=== PATIENT | male | born 1950 | race Caucasian/White ===

== ENCOUNTER → 2016-04-08 | Outpatient (CLI) | payer MEDICARE ==
[2016-04-08 12:24] VITALS: BP 130/60; PULSE 82; RESP 16; TEMP 98.1
--- NOTE | 2016-04-09 13:07 | P.PN ---
Subjective This is follow-up visit for this patient with a history of severe and chronic low back pain secondary to lumbar degenerative disc disease, lumbar facet arthropathy, and lumbar spinal stenosis, we have done interventional pain management injection, lumbar epidural steroid injections 3 and he reported that his pain improved more than 50%, and is currently on pain medications Neurontin 100 mg every 8 hours Patient denies any side effects of the medication, denies excessive drowsiness or sleepiness, denies suicidal ideation, and reports that the current pain medication is NOT helping To control the pain and improve activity of daily living Physical Examinations : 1-Constitutiona : Cooperative , not in acute distress . 2-HEENT : nech ; supple , no Lymphadenopathy , no Thyromegaly , normal thyroid size . eyes : no ptosis , no icterus, no photophobia . ENT : normal of hearing , normal oropharynx , no Thrush . 3- Respiratory : Chest clear to auscultations Bilaterally , no wheezing , no Rhonchi . 4- Cardiovascular : regular rate and rhythem , S1 , S2 , no S3 , no S4. 5- Gastrointestinal : abdomen soft no tenderness , bowel sounds positive all four quadrents , no organomegally . 6- Genitourinary : Defferred . 7- neurologic : Cranial nerve II to XII intact , no focal neurological deffecit . 8-psychatric : alert , oriented X 3 , appropriate affect , intact judgment and insight . 9-Lymphatic : no Lymphadenopathy . 10- musculoskeltal : exams of the Lumber spine = motor strength lower extremities ,thigh and legs .5/5 deep tendon reflexes : normal Knee Jerk , normal ankle Jerk . lumber facet Loading Test positive strait leg raising test positive at 30 degree , RT ,LT , Fabere test positive RT and positive LT . Range of motion: Range of motion in flexion of the lumbar spine 30 degrees Range of motion range of motion of extension of the lumbar spine 10 Assessment and plan = - Chronic low back pain secondary to lumbar degenerative disc disease , lumbar spondylosis with facet arthropathy without myelopathy , lumbar spinal stenosis. Patient had good results after the lumbar epidural steroid injections done recently - diagnoses, prognosis, and treatment options including but not limited to physical therapy, surgical interventions, interventional therapies and medication management including narcotics and adjuvant medication were discussed with the patient and all questions answered to the patient's satisfaction. -medication refile =1-increased the Neurontin dose to 100 mg 2 tablets 3 times a day ,and in the future we can increase it to 300 mg 3 times a day, will follow up with the pain clinic Objective - Vital Signs Vital signs: Vital Signs Temp 98.1 F 04/08/16 12:17 Pulse 82 04/08/16 12:17 Resp 16 04/08/16 12:17 BP 130/60 04/08/16 12:17 Pulse Ox Intake & Output 04/08/16 04/09/16 04/09/16 18:59 06:59 18:59 Weight 113.398 kg
== END | disposition home or self-care (01) ==
LOC: PNWHC3 11:49
PROVIDERS: ATTEND Specialist
DX: M51.36 Other intervertebral disc degeneration, lumbar region (principal); M47.816 Spondylosis without myelopathy or radiculopathy, lumbar region; M46.96 Unspecified inflammatory spondylopathy, lumbar region; M48.06 Spinal stenosis, lumbar region; Z79.899 Other long term (current) drug therapy
CPT/HCPCS: 99211

== ENCOUNTER → 2016-06-03 | Outpatient (CLI) | payer MEDICARE ==
[2016-06-03 12:06] VITALS: BP 115/54; PULSE 101; RESP 18
--- NOTE | 2016-06-03 12:21 | P.PN ---
Progress Note - Text Patient returns for followup for chronic back pain with radiation to legs. Patient underwent LESI x 3 with good relief of pain. Patient continues on Neurontin medications for pain (increased at last visit) with some relief, and is also on Plavix for anticoagulation secondary to extensive peripheral vascular disease. Patient denies adverse drug effects from medications. Today , pt denies new-onset weakness, bowel/bladder incontinence, or any other signs or symptoms of cauda equina syndrome. There are no signs of acute intoxication, and no indications of medication diversion or overuse. In addition to above, 13-point review of systems is also negative for chest pain , shortness of breath, changes in vision, changes in hearing, new onset weakness , abdominal pain, diarrhea, extreme fatigue, malaise, fever, skin changes, homicidal or suicidal ideation, or bowel or bladder incontinence. Vital Signs: Reviewed in EMR Gen: WDWN, AAOx3, NAD HEENT: NCAT, EOMI, hearing grossly normal Pulm: resp unlabored Abd: soft, NT, ND Neck: supple, trachea midline ROM in flexion lumbar spine: reduced ROM in extension lumbar spine: reduced Lumbar paravertebral tenderness: + Facet loading: + bilateral Straight leg raise: + RLE at 25 degrees Lower extremity: decreased strength secondary to pain Neuro: CN II-XII grossly intact, muscle strength lower extremities PRESERVED Imaging: Reviewed in EMR Assessment: 1. lumbar radiculitis 2. lumbar spondylosis with myelopathy 3. chronic pain syndrome Plan: 1. Explanation: Opioid and psychological risk scores were reviewed. Diagnoses , prognoses, and multiple treatment options including but not limited to physical therapy, interventional therapies, adjuvant medical therapies, narcotic medication therapies, and surgery were discussed with the patient and all questions were answered to the patient's satisfaction. 2. Opioid agreement: no opioids prescribed today 3. Counseling: The patient was counseled extensively on BODY MASS INDEX, EXERCISE. Specifically, the patient was instructed regarding the importance of weight control and exercise in the context of both chronic pain and overall health. 4. Procedures: LESI series 5. Consultations: None 6. Investigations: None 7. Medications: Neurontin increased to 300 mg TID 8. Disposition: f/u for procedure as scheduled, patient to be off Plavix for 7 days PQRS measures: 1-Patient's medications are documented in the chart. 2-Tobacco use is negative 3-Patient has not had a pneumococcal vaccine. 4-Advanced care planning discussed, patient unable to give. 5-Opioid contract NOT signed with the patient. 6-Pain positive, follow-up visit or procedure scheduled 7-Patient's blood pressure measured and documented, and patient will follow up with the primary care due to hypertension. 8-Patient's weight was measured, and body mass index ABOVE the normal limits, and counseling was done. Patient instructed to follow up with PCP. 9-Patient WAS NOT identified as an unhealthy alcohol user.
== END ==
LOC: PNWHC3 11:51
PROVIDERS: ATTEND Anesthesiology
DX: M47.26 Other spondylosis with radiculopathy, lumbar region (principal); G89.4 Chronic pain syndrome
CPT/HCPCS: 99211

== ENCOUNTER 2016-07-01 07:26 | Day surgery (SDC) | payer MEDICARE ==
[2016-06-27 16:02] VITALS: BMI 36.6
[2016-07-01 08:03] VITALS: RESP 16; TEMP 97.7
[2016-07-01] MEDS ORDERED: LACTATED RINGERS 1,000 ML IV ONE (08:33)
[2016-07-01] MEDS ORDERED: LIDOCAINE 1% 20 ML VIAL (10MG/ML) FOR IV START INTRADERMA ONE (08:34)
[2016-07-01] MEDS ORDERED: fentaNYL (PF) 50 MCG/ML 2 ML AMP ONE (08:40)
[2016-07-01] MEDS ORDERED: TRIAMCINOLONE ACETONIDE 40 MG/ML 1 ML VIAL ONE (08:40)
[2016-07-01] MEDS ORDERED: IOHEXOL 180 MG/ML 1 ML ML ONE (08:40)
[2016-07-01] MEDS ORDERED: MIDAZOLAM 2 MG/2 ML VIAL ONE (08:40)
--- NOTE | 2016-07-01 09:04 | P.PCN ---
Date of Procedure: 07/01/16 Surgeon: Neftaly Alba Pathology: none sent Condition: stable Disposition: PACU Description of Procedure: PREOPERATIVE DIAGNOSIS: 1-Lumbar radiculitis 2-Lumbar spinal stenosis POSTOPERATIVE DIAGNOSIS: 1-Lumbar radiculitis 2-Lumbar spinal stenosis PROCEDURE 1. Lumbar epidural steroid injection under fluoroscopic guidance at the L4-L5 level. 2. Lumbar epidurogram. ANESTHESIA: Local with 1% lidocaine; IV sedation with Versed/fentanyl. EBL: Minimal PROCEDURE INDICATION: The patient with low back pain and radiculitis symptoms unresponsive to conservative treatment. Fluoroscopy was used to optimize visualization of the needle placement and to maximize safety. Patient has had excellent relief from epidural steroid injections in the past that relieved pain in his RLE. Patient takes Plavix regularly for cardiac stents but has not taken it for eight (8) days. PROCEDURE DESCRIPTION / TECHNIQUE: The patient was seen and identified in the preoperative area. Risks, benefits, complications, and alternatives were discussed with the patient, including but not limited to bleeding, infection, nerve damage, allergic reactions to medications, and incomplete pain relief. The patient agreed to proceed with the procedure and signed the consent after all questions were answered. IV was started, and vital signs were stable. Patient was taken to the OR and time out was completed to confirm patient position, procedure, laterality of pain, and allergies. The patient was placed in the prone position on procedure table and a pillow was placed under the abdomen to reduce lumbar lordosis. The lumbosacral area was prepped and draped in the usual sterile fashion. Critical pause was taken. Vital signs were closely monitored during the procedure. Conscious sedation was used during the procedure to decrease patients anxiety. Using anterior-posterior fluoroscopy, the L4-L5 interlaminar space was identified and the skin over this site was marked and then infiltrated with 1% lidocaine subcutaneously in a left paramedian fashion. Subsequently, a 20-gauge 3.5-inch Tuohy epidural needle was inserted and advanced toward the epidural space using the Loss of resistance technique and guided by AP and lateral fluoroscopy. The correct needle position in the epidural space was verified with the injection of 2 mL of the water soluble contrast dye Omnipaque 300 contrast and observing an excellent epidurogram with the epidural spread of the dye, after negative aspiration for blood and CSF and in the absence of paresthesias. Again after negative aspiration, a 8 ml mixture containing 40 mg of Kenalog and 5 ml of preservative free Normal Saline, and 2 ml of preservative free lidocaine 1% solution was injected and a washout of epidurogram was seen. Needle was withdrawn intact, skin was cleansed, and bandages were applied. COMPLICATIONS: None COMMENTS: DISPOSITION / PLANS: The patient was placed in a supine position and transferred to the recovery area in a stable condition for observation. There was no evidence of lower extremity motor or sensory deficit after the procedure. Patient was discharged from the recovery room after meeting discharge criteria. Home discharge instructions were given to the patient by the staff. The patient was reexamined prior to discharge. The patient will schedule a repeat injection in 2-4 weeks.
[2016-07-01] MEDS ORDERED: IV FLUID CONTINUATION 1,000 ML IV ONE (09:08)
[2016-07-01 09:30] VITALS: BP 108/67; PULSE 65
--- NOTE | 2016-07-01 09:33 | FL ---
Fluoroscopy INDICATION: Pain FINDINGS: Fluoroscopy time: 31 seconds. Images obtained: 3. IMPRESSIONS: 1. Documentation of fluoroscopy.
[2016-07-01] MEDS ORDERED: LACTATED RINGERS 1,000 ML IV SCH (10:30)
== END 2016-07-01 09:57 | disposition home or self-care (01) ==
LOC: ORPAIN 07:26
PROVIDERS: ATTEND Anesthesiology
DX: G89.29 Other chronic pain (principal); M54.16 Radiculopathy, lumbar region; M48.06 Spinal stenosis, lumbar region; I73.9 Peripheral vascular disease, unspecified; Z79.01 Long term (current) use of anticoagulants; Z79.02 Long term (current) use of antithrombotics/antiplatelets
CPT/HCPCS: 62323; 99152; J2250; J3301; Q9965; J3010; 36415; 80051; 82565; 84520; 85027

== ENCOUNTER → 2016-07-01 | Outpatient (CLI) | payer MEDICARE ==
[2016-07-01 11:21] LABS: CH 34.3; HCT 36.1 % (39.0-53.0); HDW 2.82; HGB 12.2 gm/dL (13.0-17.5); MCH 34.3 pg (25.0-35.0); MCHC 33.9 g/dL (31.0-37.0); MCV 101.2 fL (80.0-100.0); Macrocytosis Slight; Mean Platelet Volume 7.2; RBC 3.56 m/uL (4.30-5.90); RDW 14.5 % (11.5-15.5)
[2016-07-01 11:31] LABS: Anion Gap 9 mmol/L; Blood Urea Nitrogen 17 mg/dL (9-20); Carbon Dioxide 31 mmol/L (22-30); Chloride 100 mmol/L (98-107); Non-African American GFR(MDRD) >60 (>60 ml/min/1.73 sqM); Potassium 4.5 mmol/L (3.5-5.1); Sodium 140 mmol/L (137-145)
== END | disposition home or self-care (01) ==
LOC: LABWHC1 07:12
PROVIDERS: ATTEND Internal Medicine Interventional Cardiology
DX: Z01.812 Encounter for preprocedural laboratory examination (principal); I73.9 Peripheral vascular disease, unspecified
CPT/HCPCS: 36415; 80051; 82565; 84520; 85027

== ENCOUNTER 2016-07-05 06:22 | Day surgery (SDC) | payer MEDICARE ==
[2016-07-03 14:59] VITALS: BMI 36.6
[2016-07-05] MEDS ORDERED: ASPIRIN 325 MG TAB PO STA (06:27)
[2016-07-05] MEDS ORDERED: SODIUM CHLORIDE 0.9% 1,000 ML in EMPTY BAG 1 BAG IV ONE (06:27)
[2016-07-05] MEDS ORDERED: ALPRAZolam 0.25 MG TAB PO PRN (06:27)
[2016-07-05 07:03] VITALS: PULSE 62; RESP 20; TEMP 98.1
[2016-07-05] MEDS ORDERED: MIDAZOLAM 2 MG/2 ML VIAL IV ONE (08:14)
[2016-07-05] MEDS ORDERED: LIDOCAINE 2% INJ 20 MG/ML SQ ONE (08:16)
[2016-07-05] MEDS: VERAPAMIL SYRINGE (5 MG/10 ML) INTRAARTER ONE ×2 (08:18→08:33)
[2016-07-05] MEDS ORDERED: IODIXANOL 320 MG/ML 100 ML INTRAARTER ONE (08:33)
[2016-07-05] MEDS ORDERED: SODIUM CHLORIDE 0.9% 1,000 ML IV SCH (09:00)
--- NOTE | 2016-07-05 12:35 | LTR ---
July 05, 2016 NAY PERALTA DO RE: Catracho Brady Nidhi Dear Edward: Mr. Catracho Brady underwent an abdominal aortogram and bilateral lower extremity runoff and that showed occluded bilateral femoral arteries. I will consider percutaneous peripheral intervention on him in the next couple of weeks. I want to thank you for allowing me to participate in his care and please do not hesitate to call if you have any questions or concerns. Sincerely, KYLAH ZARAGOZA MD
--- NOTE | 2016-07-05 12:47 | PTCA ---
DATE OF SERVICE: 07/05/2016 PERFORMING PHYSICIAN: Brant Sanchez M.D., Head Wrestling Coach. PROCEDURE PERFORMED: 1. An abdominal aortogram. 2. Bilateral lower extremity runoff. INDICATION: This is a pleasant 66-year-old gentleman who is known to have severe peripheral arterial disease with known occluded bilateral SFA, was experiencing severe bilateral lower extremity discomfort. The last angiogram was performed in 2014. APPROACH: Right radial artery. LEVEL OF SEDATION: Moderate. PROCEDURE DESCRIPTION: After obtaining an informed consent, the patient was brought to the Cardiac Illuminator. The right radial artery was cannulated using micropuncture technique, the micropuncture wire passed easily, then I placed a 5 [place] sheath in the right radial artery. Subsequently, I gave the patient 2 mg of verapamil IA and 5,000 unit of heparin IV. After that, I did an abdominal aortogram and bilateral lower extremity runoff using 5 [place] African pigtail catheter which was initially placed at the level of the renal arteries, then it was advanced into above the bifurcation of the aorta to right and left common iliac arteries. The procedure was completed without any complication. SELECTIVE PERIPHERAL ANGIOGRAM: 1. The abdominal aorta appeared to have mild disease only and seems to be calcified. 2. COMMON ILIAC ARTERIES: The right and left common iliac arteries appeared to be angiographically normal. 3. EXTERNAL ILIAC ARTERIES: The right and left external iliac arteries are angiographically normal. 4. INTERNAL ILIAC ARTERIES: The right and left internal iliac arteries appeared to be angiographically normal. 5. COMMON FEMORAL ARTERIES. The right and left bronchial arteries are angiographically normal. 6. PROFUNDA: The right and left profunda are patent. 7. SFA: The right and left SFA are occluded, a long segment extends from the ostium all the way to the popliteal. 8. POPLITEAL: The right and left popliteal are patent. 9. BELOW THE KNEE: There is 2-vessel runoff below the knee bilaterally with posterior tibia and peroneal. CONCLUSION: Severe femoropopliteal disease with occluded bilateral SFA. POSTPROCEDURE MANAGEMENT: The patient to be scheduled to undergo a BILINGUAL SPEECH THERAPIST of the right SFA and subsequently left SFA.
[2016-07-05 13:26] VITALS: BP 118/57
--- NOTE | 2016-07-05 15:30 | IR ---
Fluoroscopy HISTORY: Pain in left leg 3.8 minutes fluoroscopy time supplied to the referring clinician. 122 intraoperative C-arm images do cument the procedure. See dictated report from cardiology.
--- NOTE | 2016-07-11 10:08 | CDI ---
Dr. Sanchez Mr. Brady was seen on 07/05 for evaluation of PAD. Per the H&P, "...he continues to have bilateral lower extremeties discomfort seems to be consistent with intermittent claudication." According to the Official Guidelines for Coding and Reporting, in the outpatient setting diagnosis documented as consistent with fits the definition of a probable or suspected condition. Further clarification is required when a suspected condition is reported. Please clarify for proper reporting purposes. PAD with intermittent claudication PAD without intermittent claudication Unknown Other (please specify) Please document your findings in an addendum to the procedure note. If you have any questions about this query, you may contact Music Industry Intern, Alisson Loco at between 8am and 6pm Friday-Friday Thank you for your time. EDINSON Ramirez PAD with intermittent claudication [facility]
== END 2016-07-05 14:15 | disposition home or self-care (01) ==
LOC: CATHCVL 06:22
PROVIDERS: ATTEND Internal Medicine Interventional Cardiology
DX: I70.213 Atherosclerosis of native arteries of extremities with intermittent claudication, bilateral legs (principal); I25.2 Old myocardial infarction; Z95.2 Presence of prosthetic heart valve; I10 Essential (primary) hypertension; I48.91 Unspecified atrial fibrillation; E78.2 Mixed hyperlipidemia; I25.10 Atherosclerotic heart disease of native coronary artery without angina pectoris; Z95.5 Presence of coronary angioplasty implant and graft; Z79.02 Long term (current) use of antithrombotics/antiplatelets; Z79.82 Long term (current) use of aspirin; Z79.899 Other long term (current) drug therapy
CPT/HCPCS: 36200; 75625; 75716; C1769; C1894; J2001; J2250; Q9967; J1644

== ENCOUNTER 2016-07-31 09:30 | Day surgery (SDC) | payer MEDICARE ==
[~2016-07-31 09:30] MED LIST: ALPRAZolam 0.25 MG TAB PO PRN; ASPIRIN 325 MG TAB PO STA; SODIUM CHLORIDE 0.9% 1,000 ML in EMPTY BAG 1 BAG IV ONE
[2016-07-31] MEDS ORDERED: SODIUM CHLORIDE 0.9% 1,000 ML IV ONE (09:50)
[2016-07-31 10:09] VITALS: RESP 16
[2016-07-31] MEDS ORDERED: LIDOCAINE 2% INJ 20 MG/ML SQ ONE (11:30)
[2016-07-31] MEDS: MIDAZOLAM 2 MG/2 ML VIAL IVP ONE ×4 (11:33→13:22)
[2016-07-31] MEDS: fentaNYL (PF) 50 MCG/ML 2 ML AMP IV ONE ×6 (11:34→14:18)
[2016-07-31] MEDS ORDERED: HEPARIN SODIUM 1,000 UNIT/ML VIAL IV ONE (11:38)
[2016-07-31] MEDS ORDERED: MIDAZOLAM 2 MG/2 ML VIAL IVP ONE ×2 (12:47→14:35)
[2016-07-31] MEDS ORDERED: IODIXANOL 320 MG/ML 100 ML INTRAARTER ONE (14:55)
[2016-07-31] MEDS ORDERED: NITROGLYCERIN SL TABS 0.4 MG TAB SUBLINGUAL PRN (15:18)
[2016-07-31] MEDS ORDERED: SODIUM CHLORIDE 0.9% 1,000 ML IV SCH (15:30)
[2016-07-31 19:42] VITALS: BMI 38.0
--- NOTE | 2016-07-31 20:05 | PCN ---
DATE OF PROCEDURE: 07/31/2016 PERFORMING PHYSICIAN: Brant Sanchez M.D., lead web developer. PROCEDURE PERFORMED: Attempted balloon angioplasty of the right superficial femoral artery. INDICATION: This is a pleasant 66-year-old gentleman who is known to have severe peripheral arterial disease with occluded bilateral SFA. He was quite symptomatic bilaterally. He was brought today to undergo a STOREKEEPER STEWARD of the right SFA from left groin approach. APPROACH: Left common femoral artery. COMPLICATIONS: None. LEVEL OF SEDATION: Moderate with sedation length of 3 hours and 18 minutes. PROCEDURE DESCRIPTION: After obtaining informed consent, the patient was brought to the cardiac laborer cement gun placing. The left common femoral artery was cannulated using micropuncture technique. The micropuncture wire passed easily. Then I placed a 6 Mauritian sheath 11 cm in the left common femoral artery. After that I selected the right profunda using an 0.035 Advantage wire with 5 Mauritian RIM catheter. After that I exchanged my 11 cm 6 Mauritian sheath for a 70 cm 6 Mauritian sheath using an 0.35 Advantage wire. The tip of the sheath was positioned in the right common femoral artery. After that I attempted crossing the WHITEPRINTING MACHINE OPERATOR of the right superficial femoral artery using an 0.014 Astato wire, a ( ) Astato wire, 0.035 Glidewire and 0.035 Advantage wire, and I was unsuccessful. I attempted crossing the WHITEPRINTING MACHINE OPERATOR of the right SFA in antegrade technique only. We did not try to come from down and see if we are successful in crossing the right superficial femoral artery. After multiple attempts we decided to stop and possibly either send the patient to have a right femoropopliteal bypass or to undergo an attempt from down, where we can access the right posterior tibial artery and do it. The procedure was completed without any complication. POST-PROCEDURE MANAGEMENT: 1. Dual antiplatelet therapy. 2. Risk factor modifications. 3. Discuss with the patient the option between surgery and retrograde technique.
[2016-07-31] MEDS: METOPROLOL TARTRATE 25 MG TAB PO SCH (20:49)
[2016-07-31] MEDS: FUROSEMIDE 40 MG TAB PO SCH (20:49)
[2016-07-31] MEDS: GABAPENTIN 300 MG CAP PO SCH (20:49)
[2016-07-31] MEDS ORDERED: AMIODARONE 200 MG TAB PO STA (20:54)
[2016-07-31] MEDS ORDERED: ATORVASTATIN 80 MG TAB PO SCH (21:00)
[2016-08-01 07:41] LABS: Non-African American GFR(MDRD) >60 (>60 ml/min/1.73 sqM)
[2016-08-01 08:03] VITALS: BP 121/77; PULSE 78; TEMP 98
--- NOTE | 2016-08-01 08:11 | IR ---
EXAMINATION TYPE: IR seating captain femoral popliteal DATE OF EXAM: 07/31/2016 3:21 PM CLINICAL HISTORY: Right leg pain TECHNIQUE: Fluoroscopy. COMPARISON: None. FINDINGS: Fluoroscopic guidance was provided during right popliteal angiogram procedure performed by Dr. Sanchez. A total of 107.1 minutes of fluoroscopic time was utilized during the procedure and multi ple spot images was acquired. Please refer to procedure note for further details as I was not present nor performed procedure. IMPRESSION: As Above.
[2016-08-01] MEDS: GABAPENTIN 300 MG CAP PO SCH ×2 (08:45)
[2016-08-01] MEDS: METOPROLOL TARTRATE 25 MG TAB PO SCH (08:45)
[2016-08-01] MEDS: FUROSEMIDE 40 MG TAB PO SCH (08:46)
[2016-08-01] MEDS ORDERED: ASPIRIN 81 MG CHEW PO SCH (09:00)
[2016-08-01] MEDS ORDERED: CLOPIDOGREL 75 MG TAB PO SCH (09:00)
[2016-08-01] MEDS ORDERED: LISINOPRIL 10 MG TAB PO SCH (09:00)
[2016-08-01] MEDS ORDERED: CHOLECALCIFEROL 1,000 UNIT TAB PO SCH (09:00)
[2016-08-01] MEDS ORDERED: NON-FORMULARY DRUG (Omega-3 Fatty Acids/Fish Oil [Fish Oil 1,000 Mg Softgel] 1 CAP) PO SCH (09:00)
[2016-08-01] MEDS ORDERED: AMIODARONE 200 MG TAB PO SCH ×2 (09:00→21:00)
[2016-08-01] MEDS ORDERED: ISOSORBIDE MONONITRATE ER 15 MG TAB PO SCH (09:00)
--- NOTE | 2016-08-01 09:05 | DS ---
DATE OF ADMISSION: 07/31/2016 DATE OF DISCHARGE: 08/01/2016 BRIEF HISTORY: This is a pleasant 66-year-old gentleman who sees Dr. Patrick Kessler as well as Dr. Gregorio Rodas who was admitted to the hospital yesterday and underwent an attempted balloon angioplasty of the right superficial femoral artery for severe intermittent claudication. We did an antegrade approach only. The procedure was performed from the left groin. The patient is going to be discharged home on dual antiplatelet therapy and I will bring the patient back to undergo a GOLF CART MECHANIC of the right SFA from retrograde approach from right posterior tibial artery.
[2016-08-01] MEDS ORDERED: MULTIVITAMINS, THERA 1 EACH TAB PO SCH (12:00)
[2016-08-01] MEDS ORDERED: B COMPLEX-VIT C-VIT E-ZINC 1 EACH TAB PO SCH (12:00)
== END 2016-08-01 10:56 | disposition home or self-care (01) ==
LOC: CATHCVL 09:30 → 3OBS 14:57 → CATHCVL 08-01 10:56
PROVIDERS: ATTEND Internal Medicine Interventional Cardiology
DX: I70.211 Atherosclerosis of native arteries of extremities with intermittent claudication, right leg (principal); Z95.1 Presence of aortocoronary bypass graft; Z95.2 Presence of prosthetic heart valve; E78.2 Mixed hyperlipidemia; I10 Essential (primary) hypertension; I48.91 Unspecified atrial fibrillation; Z87.891 Personal history of nicotine dependence; Z79.02 Long term (current) use of antithrombotics/antiplatelets; Z79.82 Long term (current) use of aspirin; Z79.899 Other long term (current) drug therapy
CPT/HCPCS: 37224; 85347; 82565; 99152; 99153 ×6; C1894 ×2; C1769 ×8; C1887; J2001; J2250; Q9967; J3010; J1644

== ENCOUNTER → 2016-08-06 | Outpatient (CLI) | payer MEDICARE ==
[2016-08-06 14:54] VITALS: BP 145/84; PULSE 76; RESP 16; TEMP 97.8
--- NOTE | 2016-08-06 15:10 | P.PN ---
Progress Note - Text Patient returns for followup for chronic back pain with radiation to legs. Patient did have additional catheterization by Dr. Sanchez but stent placement for PAD was unsuccessful. He underwent LESI x 3 with good relief of pain previously , but underwent LESI in June with only 3-4 days' worth of relief and is requesting something that will help him for longer. Patient continues on Neurontin medications for pain (increased at last visit) with some relief, and is also on Plavix for anticoagulation secondary to extensive peripheral vascular disease. Patient denies adverse drug effects from medications. Today , pt denies new-onset weakness, bowel/bladder incontinence, or any other signs or symptoms of cauda equina syndrome. There are no signs of acute intoxication, and no indications of medication diversion or overuse. In addition to above, 13-point review of systems is also negative for chest pain , shortness of breath, changes in vision, changes in hearing, new onset weakness , abdominal pain, diarrhea, extreme fatigue, malaise, fever, skin changes, homicidal or suicidal ideation, or bowel or bladder incontinence. Vital Signs: Reviewed in EMR Gen: WDWN, AAOx3, NAD HEENT: NCAT, EOMI, hearing grossly normal Pulm: resp unlabored Abd: soft, NT, ND Neck: supple, trachea midline ROM in flexion lumbar spine: reduced ROM in extension lumbar spine: reduced Lumbar paravertebral tenderness: + Facet loading: + bilateral Straight leg raise: + RLE at 25 degrees Lower extremity: decreased strength secondary to pain Neuro: CN II-XII grossly intact, muscle strength lower extremities PRESERVED Imaging: Reviewed in EMR Assessment: 1. lumbar radiculitis 2. lumbar spondylosis with myelopathy 3. chronic pain syndrome Plan: 1. Explanation: Opioid and psychological risk scores were reviewed. Diagnoses , prognoses, and multiple treatment options including but not limited to physical therapy, interventional therapies, adjuvant medical therapies, narcotic medication therapies, and surgery were discussed with the patient and all questions were answered to the patient's satisfaction. 2. Opioid agreement: no opioids prescribed today 3. Counseling: The patient was counseled extensively on BODY MASS INDEX, EXERCISE. Specifically, the patient was instructed regarding the importance of weight control and exercise in the context of both chronic pain and overall health. 4. Procedures: lumbar MBB bilateral instead of LESI #2 5. Consultations: None 6. Investigations: None 7. Medications: Neurontin re-prescribed and increased 400 mg TID 8. Disposition: f/u for procedure as scheduled, patient to be off Plavix for 7 days per [facility] PQRS measures: 1-Patient's medications are documented in the chart. 2-Tobacco use is negative 3-Patient has not had a pneumococcal vaccine. 4-Advanced care planning discussed, patient unable to give. 5-Opioid contract NOT signed with the patient. 6-Pain positive, follow-up visit or procedure scheduled 7-Patient's blood pressure measured and documented, and patient will follow up with the primary care due to hypertension. 8-Patient's weight was measured, and body mass index ABOVE the normal limits, and counseling was done. Patient instructed to follow up with PCP. 9-Patient WAS NOT identified as an unhealthy alcohol user.
== END | disposition home or self-care (01) ==
LOC: PNWHC3 14:14
PROVIDERS: ATTEND Anesthesiology
DX: M47.16 Other spondylosis with myelopathy, lumbar region (principal); M54.16 Radiculopathy, lumbar region; G89.4 Chronic pain syndrome
CPT/HCPCS: 99211

== ENCOUNTER → 2016-08-26 | Outpatient (CLI) | payer MEDICARE ==
[2016-08-26 12:31] VITALS: BP 122/74; PULSE 61; RESP 16; TEMP 97.2
--- NOTE | 2016-08-26 13:24 | P.PN ---
Subjective This is follow-up visit for this patient with a history of severe and chronic low back pain secondary to lumbar degenerative disc diseases , lumbar spondylosis with facet arthropathy , we have done interventional pain management injection, lumbar epidural steroid injections, and this provided minimal short-term benefit and he continued to have severe low bacm pain, 1-Neurontin 300 mg every 6 hours Patient denies any side effects of the medication, denies excessive drowsiness or sleepiness, denies suicidal ideation, and reports that the current pain medication is NOT helping To control the pain and improve activity of daily living Patient denies any motor or sensory deficit , patient denies any fever or night sweats, denies any change in the bowel movements or urination Physical Examinations : 1-Constitutiona : Cooperative , not in acute distress . 2-HEENT : nech ; supple , no Lymphadenopathy , no Thyromegaly , normal thyroid size . eyes : no ptosis , no icterus, no photophobia . ENT : normal of hearing , normal oropharynx , no Thrush . 3- Respiratory : Chest clear to auscultations Bilaterally , no wheezing , no Rhonchi . 4- Cardiovascular : regular rate and rhythem , S1 , S2 , no S3 , no S4. 5- Gastrointestinal : abdomen soft no tenderness , bowel sounds positive all four quadrents , no organomegally . 6- Genitourinary : Defferred . 7- neurologic : Cranial nerve II to XII intact , no focal neurological deffecit . 8-psychatric : alert , oriented X 3 , appropriate affect , intact judgment and insight . 9-Lymphatic : no Lymphadenopathy . 10- musculoskeltal : exams of the Lumber spine = motor strength lower extremities ,thigh and legs .5/5 deep tendon reflexes : normal Knee Jerk , normal ankle Jerk . lumber facet Loading Test positive bilaterally strait leg raising test positive at 30 degree , RT ,LT , Fabere test positive RT and positive LT . Range of motion: Range of motion in flexion of the lumbar spine 30 degrees Range of motion range of motion of extension of the lumbar spine 10 Assessment and plan = Chronic low back pain secondary to lumbar degenerative disc disease , lumbar spondylosis with facet arthropathy without myelopathy , he continue to have , severe low back pain after lumbar epidural steroid injections , - diagnoses, prognosis, and treatment options including but not limited to physical therapy, surgical interventions, interventional therapies , and medication management including narcotics and adjuvant medication were discussed with the patient and all the questions answered, he should continue his current medication Neurontin 300 mg every 6 hours , and patient will be scheduled to have diagnostic medial branch block lumbar area L2-3/L3 4/L4 5/L5-S1 if he gets more than 50% improvement after 2 diagnostic medial branch block and it would be good candidate to have radiofrequency ablation of the median branch Objective - Vital Signs Vital signs: Vital Signs Temp 97.2 F L 08/26/16 12:24 Pulse 61 08/26/16 12:24 Resp 16 08/26/16 12:24 BP 122/74 08/26/16 12:24 Pulse Ox 95 08/26/16 12:24 Intake & Output 08/25/16 08/26/16 08/26/16 18:59 06:59 18:59 Weight 124.738 kg
== END ==
LOC: PNWHC3 11:32
PROVIDERS: ATTEND Specialist
DX: M51.36 Other intervertebral disc degeneration, lumbar region (principal); M47.816 Spondylosis without myelopathy or radiculopathy, lumbar region; M46.86 Other specified inflammatory spondylopathies, lumbar region; G89.29 Other chronic pain; Z79.891 Long term (current) use of opiate analgesic
CPT/HCPCS: 99211

== ENCOUNTER 2016-09-18 07:08 | Day surgery (SDC) | payer MEDICARE ==
[2016-09-11 17:31] VITALS: BMI 37.3
[2016-09-18 07:29] VITALS: RESP 16; TEMP 97.8
[2016-09-18] MEDS ORDERED: LACTATED RINGERS 1,000 ML IV ONE (07:30)
[2016-09-18] MEDS ORDERED: LIDOCAINE 1% 20 ML VIAL (10MG/ML) FOR IV START INTRADERMA ONE (08:12)
[2016-09-18] MEDS ORDERED: BUPIVACAINE (PF) 0.5% 30 ML VIAL ONE (08:12)
[2016-09-18] MEDS ORDERED: MIDAZOLAM 2 MG/2 ML VIAL ONE (08:12)
[2016-09-18] MEDS ORDERED: TRIAMCINOLONE ACETONIDE 40 MG/ML 1 ML VIAL ONE (08:12)
[2016-09-18] MEDS ORDERED: LACTATED RINGERS 1,000 ML IV SCH (08:15)
--- NOTE | 2016-09-18 08:50 | FL ---
Fluoroscopy History: BACK PAIN 28 seconds of fluoroscopic time and 1 films are submited for pain management.
[2016-09-18] MEDS ORDERED: IV FLUID CONTINUATION 700 ML IV ONE (08:51)
--- NOTE | 2016-09-18 08:58 | P.PCN ---
Date of Procedure: 09/18/16 Preoperative Diagnosis: Postoperative Diagnosis: Procedure(s) Performed: Implants: Surgeon: Neftaly Alba Pathology: none sent Condition: stable Disposition: PACU Indications for Procedure: Operative Findings: Description of Procedure: PREOPERATIVE DIAGNOSIS: L3-L4, L4-L5, and L5-S1 spondylosis without myelopathy and facet arthropathy. POSTOPERATIVE DIAGNOSIS: L3-L4, L4-L5, and L5-S1 spondylosis without myelopathy and facet arthropathy. PROCEDURE DESCRIPTION: Patient presents for bilateral L3, L4 and L5 diagnostic medial branch blocks under fluoroscopic guidance. The procedure is performed using fluoroscopic guidance during needle placement to assure proper position and maximize safety. ANESTHESIA: Local with 1% lidocaine; conscious sedation EBL: Minimal PROCEDURE INDICATION: Patient with lumbar facet arthropathy signs and symptoms, here for diagnostic medial branch block, #1 at this visit. Pt has been off Plavix for six days. PROCEDURE DESCRIPTION: The patient was seen and identified in the preoperative area. Risks, benefits, complications, and alternatives were discussed with the patient (including but not limited to incomplete pain relief, bleeding, infection, nerve damage, and allergies to medications), the patient agreed to proceed with the procedure and signed the consent after all questions were answered. Patient was taken to the OR and time out was completed to verify proper patient, position, laterality of pain, and allergies. Pt was placed in the prone position and a pillow was placed under the abdomen to reduce lumbar lordosis. The lumbosacral area was prepped and draped in the usual sterile fashion. Using oblique fluoroscopy, the eye of the "Ric dog" of right L4 vertebral body, which corresponds to the path of the medial branch originating from the level above, which is L3 in this case, was identified. Subsequently, a 22-gauge 3.5-inch spinal needle was inserted under fluoroscopic guidance toward the eye of the "Ric dog" of the right L4 vertebral body, corresponding to the junction of the superior articular process and the transverse process of the pedicle of the same level. After needle tip confirmation on lateral view and after negative aspiration for CSF and blood and without paresthesias, 1 mL of a 6 ml solution of 0.5% preservative-free bupivacaine and 40 mg Kenalog was injected. Subsequently the needle was withdrawn intact and the same procedure was repeated for the right L4, right L5, left L3, left L4, and left L5 medial branches which together with right L3 medial branch correspond to the sensory innervation of the bilateral L3-L4, L4-L5, and L5-S1 facet joints. Needle was withdrawn intact after each injection. At the end of the procedure, the skin was cleansed and bandages were applied. COMPLICATIONS: None. DISPOSITION/PLAN: The patient taken to the recovery area after the procedure in a stable condition for observation. Patient was reexamined prior to discharge and there were no issues. Patient was discharged home, accompanied by an adult, after meeting discharged criteria. Discharge instructions were give to the patient by the staff. Patient was specifically instructed not to drive today and to rest for the rest of the day. Patient will follow up in 2-3 weeks for further evaluation.
[2016-09-18 09:24] VITALS: BP 106/66; PULSE 60
== END 2016-09-18 09:51 | disposition home or self-care (01) ==
LOC: ORPAIN 07:08
PROVIDERS: ATTEND Anesthesiology
DX: G89.29 Other chronic pain (principal); M47.816 Spondylosis without myelopathy or radiculopathy, lumbar region; M47.817 Spondylosis without myelopathy or radiculopathy, lumbosacral region; M46.96 Unspecified inflammatory spondylopathy, lumbar region; M46.97 Unspecified inflammatory spondylopathy, lumbosacral region
CPT/HCPCS: 64493; 64494; 64495; 99152; J2250; J3301

== ENCOUNTER → 2016-10-08 | Outpatient (CLI) | payer MEDICARE ==
[2016-10-08 12:16] VITALS: BP 114/68; PULSE 88; RESP 18; TEMP 98
--- NOTE | 2016-10-08 12:36 | P.PN ---
Progress Note - Text Patient returns for followup for chronic back pain with radiation to legs. Patient underwent bilateral lumbar MBB with 70% relief of back pain for eight hours (no fentanyl administered during procedure). Patient continues on Neurontin medications for pain with some relief, and is also on Plavix for anticoagulation secondary to extensive peripheral vascular disease; he was started on Eliquis last week. Patient denies adverse drug effects from medications. Today, pt denies new-onset weakness, bowel/bladder incontinence, or any other signs or symptoms of cauda equina syndrome. There are no signs of acute intoxication, and no indications of medication diversion or overuse. In addition to above, 13-point review of systems is also negative for chest pain , shortness of breath, changes in vision, changes in hearing, new onset weakness , abdominal pain, diarrhea, extreme fatigue, malaise, fever, skin changes, homicidal or suicidal ideation, or bowel or bladder incontinence. Vital Signs: Reviewed in EMR Gen: WDWN, AAOx3, NAD HEENT: NCAT, EOMI, hearing grossly normal Pulm: resp unlabored Abd: soft, NT, ND Neck: supple, trachea midline ROM in flexion lumbar spine: reduced ROM in extension lumbar spine: reduced Lumbar paravertebral tenderness: + Facet loading: + bilateral Straight leg raise: neg Lower extremity: decreased strength secondary to pain Neuro: CN II-XII grossly intact, muscle strength lower extremities PRESERVED Imaging: Reviewed in EMR Assessment: 1. lumbar radiculitis 2. lumbar spondylosis with myelopathy 3. chronic pain syndrome Plan: 1. Explanation: Opioid and psychological risk scores were reviewed. Diagnoses , prognoses, and multiple treatment options including but not limited to physical therapy, interventional therapies, adjuvant medical therapies, narcotic medication therapies, and surgery were discussed with the patient and all questions were answered to the patient's satisfaction. 2. Opioid agreement: no opioids prescribed today 3. Counseling: The patient was counseled extensively on BODY MASS INDEX, EXERCISE. Specifically, the patient was instructed regarding the importance of weight control and exercise in the context of both chronic pain and overall health. 4. Procedures: lumbar MBB bilateral #2 in six weeks if he can get permission to be off Plavix for five days and Eliquis for three days 5. Consultations: None 6. Investigations: None 7. Medications: Neurontin re-prescribed 400 mg TID with three refills 8. Disposition: f/u for procedure as scheduled, patient to be off Plavix/ Eliquis. Patient is also going to have a major vascular bypass surgery in next 2-3 months. PQRS measures: 1-Patient's medications are documented in the chart. 2-Tobacco use is negative 3-Patient has not had a pneumococcal vaccine. 4-Advanced care planning discussed, patient unable to give. 5-Opioid contract NOT signed with the patient. 6-Pain positive, follow-up visit or procedure scheduled 7-Patient's blood pressure measured and documented, and patient will follow up with the primary care due to hypertension. 8-Patient's weight was measured, and body mass index ABOVE the normal limits, and counseling was done. Patient instructed to follow up with PCP. 9-Patient WAS NOT identified as an unhealthy alcohol user.
== END | disposition home or self-care (01) ==
LOC: PNWHC3 11:42
PROVIDERS: ATTEND Anesthesiology
DX: M47.16 Other spondylosis with myelopathy, lumbar region (principal); M47.26 Other spondylosis with radiculopathy, lumbar region; G89.4 Chronic pain syndrome; Z79.899 Other long term (current) drug therapy; Z79.02 Long term (current) use of antithrombotics/antiplatelets
CPT/HCPCS: 99211

== ENCOUNTER → 2017-04-17 | Outpatient (CLI) | payer MEDICARE ==
[2017-04-17 12:21] VITALS: BP 118/57; PULSE 67; RESP 18
--- NOTE | 2017-04-17 12:49 | P.PN ---
Progress Note - Text Progress Note Date: 04/17/17 This is a 67-year-old male with history of significant peripheral vascular disease and lower back pain. The patient had multiple vascular procedures of the lower extremities he also had his aortic valve replaced in 2012. Right now he is on 2 anticoagulants; Plavix and Elequis. He had more than 70% of pain relief after the last medial branch block on the lumbar spine which was done in August 2016. At that time we were not able to do the second medial branch block because of the patient's problem with his peripheral vascular disease. The patient still takes Neurontin 300 mg 3 times a day. Patient denies adverse drug effects from medications. Today, pt denies new-onset weakness, bowel/ bladder incontinence, or any other signs or symptoms of cauda equina syndrome. There are no signs of acute intoxication, and no indications of medication diversion or overuse. In addition to above, 13-point review of systems is also negative for chest pain , shortness of breath, changes in vision, changes in hearing, new onset weakness , abdominal pain, diarrhea, extreme fatigue, malaise, fever, skin changes, homicidal or suicidal ideation, or bowel or bladder incontinence. Vital Signs: Reviewed in EMR Gen: WDWN, AAOx3, NAD HEENT: NCAT, EOMI, hearing grossly normal Pulm: resp unlabored Abd: soft, NT, ND Neck: supple, trachea midline ROM in flexion lumbar spine: reduced ROM in extension lumbar spine: reduced Lumbar paravertebral tenderness: + Facet loading: + bilateral The patient has significant edema in his feet. Lower extremity: Mild weakness secondary to pain Neuro: CN II-XII grossly intact, muscle strength lower extremities PRESERVED Imaging: Reviewed in EMR Assessment: 1. Peripheral vascular disease 2. lumbar spondylosis with myelopathy 3. chronic pain syndrome Plan: 1. Explanation: Opioid and psychological risk scores were reviewed. Diagnoses , prognoses, and multiple treatment options including but not limited to physical therapy, interventional therapies, adjuvant medical therapies, narcotic medication therapies, and surgery were discussed with the patient and all questions were answered to the patient's satisfaction. 2. Opioid agreement: no opioids prescribed today 3. Counseling: The patient was counseled extensively on BODY MASS INDEX, EXERCISE. Specifically, the patient was instructed regarding the importance of weight control and exercise in the context of both chronic pain and overall health. 4. Procedures: lumbar MBB bilateral #2 5. Consultations: None 6. Investigations: None 7. Medications: increased to 400 mg TID 8. Disposition: f/u for procedure as scheduled, patient to be off Plavix, and Elequis for 3 days per [facility] PQRS measures: 1-Patient's medications are documented in the chart. 2-Tobacco use is negative 3-Patient has not had a pneumococcal vaccine. 4-Advanced care planning discussed, patient unable to give. 5-Opioid contract NOT signed with the patient. 6-Pain positive, follow-up visit or procedure scheduled 7-Patient's blood pressure measured and documented, and patient will follow up with the primary care due to hypertension. 8-Patient's weight was measured, and body mass index ABOVE the normal limits, and counseling was done. Patient instructed to follow up with PCP. 9-Patient WAS NOT identified as an unhealthy alcohol user.
== END | disposition home or self-care (01) ==
LOC: PNWHC3 11:31
PROVIDERS: ATTEND Anesthesiology
DX: G89.4 Chronic pain syndrome (principal); M54.5 Low back pain; I73.9 Peripheral vascular disease, unspecified; M47.816 Spondylosis without myelopathy or radiculopathy, lumbar region; Z95.2 Presence of prosthetic heart valve; Z79.01 Long term (current) use of anticoagulants; Z79.02 Long term (current) use of antithrombotics/antiplatelets; Z79.899 Other long term (current) drug therapy
CPT/HCPCS: 99211

== ENCOUNTER 2017-04-29 17:09 | Inpatient (IN) | payer MEDICARE ==
[2017-04-29] MEDS ORDERED: NITROGLYCERIN SL TABS 0.4 MG TAB SUBLINGUAL STA (17:44)
[2017-04-29] MEDS ORDERED: ASPIRIN 81 MG PO STA (17:45)
--- NOTE | 2017-04-29 17:45 | ED ---
Chest Pain HPI - General Source: patient, EMS, RN notes reviewed Mode of arrival: EMS Limitations: no limitations <Fatmata March - Last Filed: 04/29/17 19:43> <David Rivera - Last Filed: 04/29/17 19:50> - General Chief Complaint: Chest Pain Stated Complaint: Chest Pain Time Seen by Provider: 04/29/17 17:11 - History of Present Illness Initial Comments: This is a 67-year-old male who presented to the emergency department with chief complaint of chest pain. Patient states that he has had chest pain for the last couple of weeks and that this afternoon it became worse. He states that at approximately 1 PM this afternoon he was visiting a friend when he had an increase in his chest pain. He states that his friend told him he appeared pale and sweaty. Patient describes the pain as a pressure, as if someone was sitting on his chest. The chest pain was located across the entire chest. Patient took one nitro at approximately 5 PM before calling EMS. Patient also had associated shortness of breath. Denied nausea or vomiting, dizziness or headache. Patient states that he normally drinks 6-10 beers per day and has had 2 drinks already today. He states he is a former smoker, he quit 3 years ago. Patient has a history of NH in 2013 with subsequent CABG. Patient reports a history of CHF. He has a stent in his right leg. He states that he takes Lasix daily. Over the past few months the swelling in his bilateral lower legs has gotten worse. He states that he has pain with walking that feels like a pressure building up to his chest. He followed up with his vascular surgeon 2 weeks ago who told him to follow-up with his life enrichment director, Dr. Patterson, to receive a better water pill. Patient states that his life enrichment director told him to follow up with primary care provider, which he has yet to do. Patient states that he has been taking Pepto-Bismol daily due to the chest pain. He thought that it was acid reflux causing the symptoms. He states he has noticed that his stool has been darker in color, but attributed this to taking Pepto-Bismol. (Fatmata March) - Related Data Home Medications Medication Instructions Recorded Confirmed Atorvastatin [Lipitor] 80 mg PO HS 10/06/14 04/29/17 Cholecalciferol [Vitamin D3] 2,000 unit PO DAILY 10/06/14 04/29/17 Metoprolol Tartrate [Lopressor] 25 mg PO BID 10/06/14 04/29/17 Multivit-Min/FA/Lycopene/Lut 1 tab PO DAILY 10/06/14 04/29/17 [Centrum Silver Tablet] [place]-3 Fatty Acids/Fish Oil [Fish 1 cap PO DAILY 10/06/14 04/29/17 Oil 1,000 mg Softgel] Clopidogrel [Plavix] 75 tab PO DAILY 11/14/15 04/29/17 Furosemide [Lasix] 40 mg PO BID 11/14/15 04/29/17 Potassium Chloride [Klor-Con 20 meq PO DAILY 11/14/15 04/29/17 Packets] Amiodarone HCl [Pacerone] 200 mg PO DAILY 06/27/16 04/29/17 Apixaban [Eliquis] 5 mg PO BID 10/08/16 04/29/17 Ferrous Sulfate [Feosol] 1 tab PO DAILY 04/17/17 04/29/17 Hydrocodone/Acetaminophen 325 mg PO Q6HR PRN 04/17/17 04/29/17 [Hydrocodon-Acetaminophen 5-325] Isosorbide Dinitrate 15 mg PO DAILY 04/29/17 04/29/17 Isosorbide Mononitrate ER [Imdur] 15 mg PO DAILY 04/29/17 04/29/17 Previous Rx's Medication Instructions Recorded Nitroglycerin Sl Tabs [Nitrostat] 0.4 mg SUBLINGUAL Q5M PRN #25 tab 05/14/15 Gabapentin [Neurontin] 400 mg PO TID #90 cap 10/08/16 Allergies Allergy/AdvReac Type Severity Reaction Status Date / Time No Known Allergies Allergy Verified 04/29/17 18:21 Review of Systems ROS Other: All systems not noted in ROS Statement are negative. <Fatmata March - Last Filed: 04/29/17 19:43> ROS Other: All systems not noted in ROS Statement are negative. <David Rivera - Last Filed: 04/29/17 19:50> ROS Statement: Those systems with pertinent positive or pertinent negative responses have been documented in the HPI. EKG Findings - EKG Comments: EKG Findings:: EKG at 17:31:36. Atrial fibrillation with a competing junctional pacemaker. Septal infarct, age undetermined. Ventricular rate 68 bpm. QRS duration 96. QT/QTc 436/463. <Fatmata March - Last Filed: 04/29/17 19:43> Past Medical History Past Medical History: Cancer, Hyperlipidemia, Hypertension, Myocardial Infarction (NH), Osteoarthritis (OA), Vascular Disorder Additional Past Medical History / Comment(s): PVD, BACK PAIN, SWELLING IN ANKLES AND FEET. , STATES SKIN CANCER WITH RECENT TREATMENT. Last Myocardial Infarction Date:: 01-20-13 History of Any Multi-Drug Resistant Organisms: None Reported Past Surgical History: Heart Catheterization, Heart Catheterization With Stent Additional Past Surgical History / Comment(s): aortic valve replacement 2012, aortogram, pt states 2 failed stent replacement-1 to each leg, PAIN CLINIC PROCEDURES, ABD. [id number] plastiogram into, Past Anesthesia/Blood Transfusion Reactions: No Reported Reaction Date of Last Stent Placement:: 05/30/15 Past Psychological History: No Psychological Hx Reported Smoking Status: Former smoker Past Alcohol Use History: Daily Past Drug Use History: None Reported - Past Family History Mother Family Medical History: Deep Vein Thrombosis (DVT) <AncaFatmata M - Last Filed: 04/29/17 19:43> General Exam Limitations: no limitations <Aguilar Marchyesica Huynh - Last Filed: 04/29/17 19:43> <David Rivera - Last Filed: 04/29/17 19:50> - General Exam Comments Initial Comments: General: Awake and alert, well-developed; in no apparent distress. HEENT: Head atraumatic, normocephalic. Pupils are equal, round and reactive to light. Extraocular movements intact. Oropharynx moist without erythema or exudate. Neck: Supple. Normal ROM. Cardiovascular: Irregularly irregular rhythm. Normal rate. No murmurs, rubs or gallops. Chest symmetrical. Respiratory: Mild shortness of breath, O2 sat 98% RA. No use of accessory muscles. Lungs clear to auscultation bilaterally. No wheezes, rales or rhonchi. Abdomen: Soft, non-tender, non-distended. No rigidity, rebound or guarding. Normal bowel sounds in all 4 quadrants. Musculoskeletal: Normal ROM. 3+ pitting edema bilateral lower extremities. Skin: [place], warm and dry without rashes or lesions. Neurological: Alert and oriented x3. CN II-XII grossly intact. Speech is fluent and answers are appropriate. No focal neuro deficits. Psychiatric: Normal mood and affect. No overt signs of depression or anxiety noted. (Fatmata March) Course <AncaFatmata Huynh - Last Filed: 04/29/17 19:43> <MiguelDavid - Last Filed: 04/29/17 19:50> Vital Signs 04/29/17 17:18 Temperature 98.1 F Pulse Rate 71 Respiratory 22 Rate Blood Pressure 141/64 O2 Sat by Pulse 98 Oximetry - Reevaluation(s) Reevaluation #1: 04/29/17 19:49 PA supervision: I did personally do a [id number] evaluation of this patient did discuss the findings with him and his family members or present. Patient does have evidence of elevated troponin as well as anemia secondary to an upper GI bleed. He's been having dark-colored stools that he attributed to his Pepto- Bismol but they are heme positive. The patient will be admitted with cardiology and GI consultation L Yves will be held placed on proton pump inhibitors he will receive a transfusion. I did discuss this with Dr. Partida. I do agree with the assessment and plan at this time. (David Rivera) Chest Pain MDM <EdmoreFatmata - Last Filed: 04/29/17 19:43> <David Rivera - Last Filed: 04/29/17 19:50> - [facility] This is a 67-year-old male who presented to the emergency department for evaluation of chest pain. Patient given nitro and aspirin while in the emergency department. Patient states there was much improvement with his symptoms. EKG revealed atrial fibrillation. When compared to previous EKG from April 2015, there does appear to be changes in leads V4 and V5. CK-MB was 5.5 and troponin 0.104. Chest x-ray revealed pulmonary fibrotic changes with small right pleural effusion that is increased compared to old exam. Patient's vital signs are stable and he is in no acute distress. Labs revealed a hemoglobin of 7.1 and a positive stool occult blood. He will be transfused 1 unit of packed RBCs. Patient will be admitted to Dr. Partida, with diagnoses of unstable angina, elevated troponin and GI bleed. Consult GI and cardiology. Patient was made aware of findings and plan. He is in agreement with admission and voices understanding. All questions were answered. Chest x-ray findings: There is no heart failure nor confluent pneumonic infiltrate. There is slight blunting of right costophrenic angle. There is mild questionable interstitial pulmonary markings. Impression: Pulmonary fibrotic changes. Small right pleural effusion is increased compared to old exam. No gross heart failure. (Fatmata March) Disposition Time of Disposition: 19:31 <Fatmata March - Last Filed: 04/29/17 19:43> <David Rivera - Last Filed: 04/29/17 19:50> Clinical Impression: Unstable angina, Elevated troponin, GI bleed Disposition: ADMITTED IP TO THIS [facility] Condition: Stable Referrals: Patrick Kessler DO [Primary Care Provider] - 1-2 days
[2017-04-29 17:59] LABS: INR 1.2 (<1.2); Partial Thromboplastin Time 24.5 sec (22.0-30.0); Prothrombin Time 11.4 sec (9.0-12.0)
[2017-04-29 18:00] LABS: ALT 27 U/L (21-72); AST 34 U/L (17-59); Albumin 4.2 g/dL (3.5-5.0); Alkaline Phosphatase 68 U/L (38-126); Anion Gap 16 mmol/L; Blood Urea Nitrogen 26 mg/dL (9-20); Calcium 9.9 mg/dL (8.4-10.2); Carbon Dioxide 24 mmol/L (22-30); Chloride 93 mmol/L (98-107); Glucose 96 mg/dL (74-99); Magnesium 1.4 mg/dL (1.6-2.3); Potassium 3.6 mmol/L (3.5-5.1); Sodium 133 mmol/L (137-145); Total Bilirubin 0.4 mg/dL (0.2-1.3); Total Protein 7.2 g/dL (6.3-8.2)
[2017-04-29 18:02] LABS: Anisocytosis Slight; HCT 22.6 % (39.0-53.0); HGB 7.1 gm/dL (13.0-17.5); Hypochromasia Slight; MCH 28.8 pg (25.0-35.0); MCHC 31.3 g/dL (31.0-37.0); MCV 91.9 fL (80.0-100.0); Mean Platelet Volume 7.9; Platelet Count 238 k/uL (150-450); Poikilocytosis Slight; RBC 2.46 m/uL (4.30-5.90); RDW 16.2 % (11.5-15.5); WBC 9.4 k/uL (3.8-10.6)
[2017-04-29 18:31] LABS: Creatine Kinase MB 5.5 ng/mL (0.0-2.4); Troponin I 0.104 ng/mL (0.000-0.034)
[2017-04-29 19:09] LABS: Band Neutrophils % 1 %; Eosinophils # (M) 0.09 k/uL (0-0.7); Lymphocytes # (M) 1.32 k/uL (1.0-4.8); Monocytes # (M) 0.66 k/uL (0-1.0); Neutrophils % (M) 77 %; Nucleated Red Blood Cells 0 /100 WBC (0-0); Polychromasia Present; Total Cells Counted 100
--- NOTE | 2017-04-29 19:16 | XR ---
EXAMINATION TYPE: XR chest 2V DATE OF EXAM: 04/29/2017 COMPARISON: 10/12/2015 HISTORY: Chest pain TECHNIQUE: Frontal and lateral views of the chest are obtained. FINDINGS: There is no heart failure nor confluent pneumonic infiltrate. There is slight blunting of right costophrenic angle. There is mild coarsening of interstitial pulmonary markings. IMPRESSION: Pulmonary fibrotic changes. Small right pleural effusion is increased compared to old ex am. No gross heart failure.
[2017-04-29] MEDS ORDERED: NITROGLYCERIN SL TABS 0.4 MG TAB SUBLINGUAL PRN (19:35)
[2017-04-29] MEDS ORDERED: FUROSEMIDE 40 MG TAB PO SCH (22:00)
[2017-04-29] MEDS: ATORVASTATIN 80 MG TAB PO SCH (22:16)
[2017-04-30] MEDS: PANTOPRAZOLE 40 MG/10 ML VIAL IVP SCH ×3 (00:04→20:44)
[2017-04-30] MEDS: NITROGLYCERIN OINT 1 INCH/GM PACKET TOPICAL SCH ×4 (00:04→17:16)
[2017-04-30] MEDS: METOPROLOL TARTRATE 25 MG TAB PO SCH ×3 (00:04→20:44)
[2017-04-30 03:17] LABS: Creatine Kinase MB 3.9 ng/mL (0.0-2.4); Troponin I 0.12 ng/mL (0.000-0.034)
[2017-04-30 05:55] LABS: Basophils % (A) 1 %; Eosinophils # (A) 0.1 k/uL (0-0.7); Eosinophils % (A) 2 %; HCT 21.6 % (39.0-53.0); Hypochromasia Marked; Lymphocytes # (A) 0.8 k/uL (1.0-4.8); Lymphocytes % (A) 14 %; MCH 28.9 pg (25.0-35.0); MCHC 30.2 g/dL (31.0-37.0); MCV 95.7 fL (80.0-100.0); Mean Platelet Volume 7.1; Monocytes # (A) 0.6 k/uL (0-1.0); Monocytes % (A) 11 %; Neutrophils # (A) 4.1 k/uL (1.3-7.7); Neutrophils % (A) 69 %; Platelet Count 200 k/uL (150-450); Poikilocytosis Slight; RBC 2.26 m/uL (4.30-5.90); WBC 5.9 k/uL (3.8-10.6)
[2017-04-30 05:58] LABS: HGB 6.5 gm/dL (13.0-17.5)
[2017-04-30 06:11] LABS: Anion Gap 9 mmol/L; Blood Urea Nitrogen 22 mg/dL (9-20); Calcium 8.7 mg/dL (8.4-10.2); Carbon Dioxide 26 mmol/L (22-30); Chloride 98 mmol/L (98-107); Cholesterol 110 mg/dL (<200); Glucose 96 mg/dL (74-99); HDL Cholesterol 43 mg/dL (40-60); LDL Cholesterol,Calculated 55 mg/dL (0-99); Potassium 3.4 mmol/L (3.5-5.1); Sodium 133 mmol/L (137-145); Triglycerides 59 mg/dL (<150)
[2017-04-30 06:23] LABS: Creatine Kinase MB 3.7 ng/mL (0.0-2.4); Troponin I 0.112 ng/mL (0.000-0.034)
[2017-04-30 06:59] LABS: Basophils % (A) 0 %; Eosinophils # (A) 0.1 k/uL (0-0.7); Eosinophils % (A) 2 %; HCT 21.1 % (39.0-53.0); Hypochromasia Moderate; Lymphocytes # (A) 0.8 k/uL (1.0-4.8); Lymphocytes % (A) 13 %; MCHC 30.7 g/dL (31.0-37.0); MCV 94.3 fL (80.0-100.0); Monocytes # (A) 0.7 k/uL (0-1.0); Monocytes % (A) 11 %; Neutrophils # (A) 4.3 k/uL (1.3-7.7); Neutrophils % (A) 70 %; Platelet Count 181 k/uL (150-450); Poikilocytosis Slight; RBC 2.24 m/uL (4.30-5.90); WBC 6.1 k/uL (3.8-10.6)
[2017-04-30 07:01] LABS: HGB 6.5 gm/dL (13.0-17.5)
--- NOTE | 2017-04-30 08:50 | P.CRDCN ---
History of Present Illness Consult date: 04/30/17 Requesting physician: Jin Partida Consult reason: chest pain Chief complaint: Bilateral leg swelling, chest and abdominal discomfort History of present illness: This is a 67-year-old gentleman who follows regularly with Dr. VC Rodas in the office. He has a known history of coronary artery disease with prior bypass surgery, severe aortic stenosis with prior aVR, peripheral vascular disease with several stent placement, he also underwent a fem fem bypass. Patient also has history of hypertension, hyperlipidemia, paroxysmal atrial fibrillation for which he is on Eliquis, Patient also drinks at least 10 alcoholic beverages per day. He presents to the hospital on this occasion with symptoms of 2-3 weeks duration of worsening edema in his lower extremities, patient also has been experiencing pressure in his mid epigastric and lower chest area. He did go to see his vascular surgeon who recommended him to follow -up with his pals nurse, patient states he call the cardiology office,-year- old who answered the phone told him to follow-up with his primary care doctor. Patient also states that for the past few days he has also noticed black stools. EKG on admission here showed atrial fibrillation with a controlled ventricular response this morning's EKG continues to show A. fib with controlled ventricular response. Chest x-ray shows pulmonary fibrotic changes, small right pleural effusion increased to prior exam area no overt congestive heart failure. The pressure 102/50, heart rate in the 70s. Laboratory data was reviewed, hemoglobin on admission 7.1, 6.5 this morning. Platelet count 181. Sodium 133, potassium 3.4, BUN 22, creatinine 0.9. Troponins 0.10, 0.12, 0.11. Stool for occult blood is positive. At the time of examination this morning, he denies any chest discomfort, does have some abdominal discomfort and complains of significant pain in his right leg. Past Medical History Past Medical History: Atrial Fibrillation, Cancer, Hyperlipidemia, Hypertension , Myocardial Infarction (AL), Osteoarthritis (OA), Vascular Disorder Additional Past Medical History / Comment(s): PVD, BACK PAIN, SWELLING IN ANKLES AND FEET. , STATES SKIN CANCER WITH RECENT TREATMENT. Last Myocardial Infarction Date:: 01-20-13 History of Any Multi-Drug Resistant Organisms: None Reported Past Surgical History: Heart Catheterization, Heart Catheterization With Stent Additional Past Surgical History / Comment(s): aortic valve replacement 2012, aortogram, pt states 2 failed stent replacement-1 to each leg, PAIN CLINIC PROCEDURES, ABD. [id number] plastiogram into, Past Anesthesia/Blood Transfusion Reactions: No Reported Reaction Date of Last Stent Placement:: 05/30/15 Past Psychological History: No Psychological Hx Reported Smoking Status: Former smoker Past Alcohol Use History: Daily Additional Past Alcohol Use History / Comment(s): quit smoking October 2014. smoked for >50 yrs, STATES DRINKS 6 -7 BEERS DAILY Past Drug Use History: None Reported - Past Family History Mother Family Medical History: Deep Vein Thrombosis (DVT) Medications and Allergies Home Medications Medication Instructions Recorded Confirmed Type Atorvastatin [Lipitor] 80 mg PO HS 10/06/14 04/29/17 History Cholecalciferol [Vitamin D3] 2,000 unit PO DAILY 10/06/14 04/29/17 History Metoprolol Tartrate [Lopressor] 25 mg PO BID 10/06/14 04/29/17 History Multivit-Min/FA/Lycopene/Lut 1 tab PO DAILY 10/06/14 04/29/17 History [Centrum Silver Tablet] [place]-3 Fatty Acids/Fish Oil [Fish 1 cap PO DAILY 10/06/14 04/29/17 History Oil 1,000 mg Softgel] Nitroglycerin Sl Tabs [Nitrostat] 0.4 mg SUBLINGUAL Q5M PRN #25 tab 05/14/15 Rx Clopidogrel [Plavix] 75 tab PO DAILY 11/14/15 04/29/17 History Furosemide [Lasix] 40 mg PO BID 11/14/15 04/29/17 History Potassium Chloride [Klor-Con 20 meq PO DAILY 11/14/15 04/29/17 History Packets] Amiodarone HCl [Pacerone] 200 mg PO DAILY 06/27/16 04/29/17 History Apixaban [Eliquis] 5 mg PO BID 10/08/16 04/29/17 History Gabapentin [Neurontin] 400 mg PO TID #90 cap 10/08/16 04/29/17 Rx Ferrous Sulfate [Feosol] 1 tab PO DAILY 04/17/17 04/29/17 History Hydrocodone/Acetaminophen 325 mg PO Q6HR PRN 04/17/17 04/29/17 History [Hydrocodon-Acetaminophen 5-325] Isosorbide Dinitrate 15 mg PO DAILY 04/29/17 04/29/17 History Isosorbide Mononitrate ER [Imdur] 15 mg PO DAILY 04/29/17 04/29/17 History Allergies Allergy/AdvReac Type Severity Reaction Status Date / Time No Known Allergies Allergy Verified 04/29/17 18:21 Physical Exam Vitals: Vital Signs Temp Pulse Pulse Resp BP BP Pulse Ox 04/30/17 07:51 98.2 F 70 18 103/50 98 04/30/17 03:12 98.2 F 77 18 109/60 98 04/30/17 03:05 76 18 04/30/17 01:07 98.8 F 68 18 126/60 98 04/30/17 00:00 98.5 F 76 18 124/57 98 04/29/17 22:39 98.1 F 87 18 129/85 99 04/29/17 22:19 97.8 F 83 18 147/67 99 04/29/17 22:09 98.1 F 76 18 140/62 97 04/29/17 21:59 98.3 F 71 18 148/69 98 04/29/17 21:57 97.9 F 88 18 165/70 98 04/29/17 21:54 98.1 F 87 16 129/85 99 04/29/17 20:56 75 18 139/73 99 04/29/17 19:56 82 18 98/51 100 04/29/17 17:18 98.1 F 71 22 141/64 98 Intake and Output 04/29/17 04/30/17 04/30/17 22:59 06:59 14:59 Intake Total 0 620 Output Total 250 500 Balance -250 120 Intake: Blood Product 0 620 Rc As-3 Unit 0 310 [id number] Output: Urine 250 500 Other: # Voids 1 Weight 123.7 kg 123.7 kg PHYSICAL EXAMINATION: HEENT: Head is atraumatic, normocephalic. Pupils equal, round. Neck is supple. There is no elevated jugular venous pressure. HEART EXAMINATION: Heart S1 and S2 irregularly irregular systolic murmur is heard CHEST EXAMINATION: Lungs reveal coarse crackles to the bases. ABDOMEN: Soft, obese, positive generalized tenderness . EXTREMITIES: Doppler to 1+ peripheral pulses, 3-4+ edema, mostly in his bilateral feet, edema also present in the lower extremities NEUROLOGIC patient is awake, alert and oriented -3. . Results 04/30/17 06:25 04/30/17 05:27 Cardiac Enzymes 04/29/17 04/29/17 04/30/17 Range/Units 17:35 17:35 01:53 AST 34 (17-59) U/L CK-MB (CK-2) 5.5 H* 3.9 H* (0.0-2.4) ng/mL Troponin I 0.104 H* 0.120 H* (0.000-0.034) ng/mL 04/30/17 Range/Units 05:27 AST (17-59) U/L CK-MB (CK-2) 3.7 H* (0.0-2.4) ng/mL Troponin I 0.112 H* (0.000-0.034) ng/mL Coagulation 04/29/17 Range/Units 17:35 PT 11.4 (9.0-12.0) sec APTT 24.5 (22.0-30.0) sec Lipids 04/30/17 Range/Units 05:27 Triglycerides 59 (<150) mg/dL Cholesterol 110 (<200) mg/dL HDL Cholesterol 43 (40-60) mg/dL CBC 04/29/17 04/30/17 04/30/17 Range/Units 17:35 05:27 06:25 WBC 9.4 5.9 6.1 (3.8-10.6) k/uL RBC 2.46 L 2.26 L 2.24 L (4.30-5.90) m/uL Hgb 7.1 L 6.5 L* 6.5 L* (13.0-17.5) gm/dL Hct 22.6 L 21.6 L 21.1 L (39.0-53.0) % Plt Count 238 200 181 (150-450) k/uL Comprehensive Metabolic Panel 04/29/17 04/30/17 Range/Units 17:35 05:27 Sodium 133 L 133 L (137-145) mmol/L Potassium 3.6 3.4 L (3.5-5.1) mmol/L Chloride 93 L 98 (98-107) mmol/L Carbon Dioxide 24 26 (22-30) mmol/L BUN 26 H 22 H (9-20) mg/dL Creatinine 1.10 0.90 (0.66-1.25) mg/dL Glucose 96 96 (74-99) mg/dL Calcium 9.9 8.7 (8.4-10.2) mg/dL AST 34 (17-59) U/L ALT 27 (21-72) U/L Alkaline Phosphatase 68 (38-126) U/L Total Protein 7.2 (6.3-8.2) g/dL Albumin 4.2 (3.5-5.0) g/dL Current Medications Generic Name Dose Route Start Last Admin Trade Name Freq PRN Reason Stop Dose Admin Amiodarone HCl 200 mg 04/30/17 09:00 Cordarone PO DAILY [facility] Aspirin 325 mg 04/30/17 09:00 Aspirin PO DAILY [facility] Atorvastatin Calcium 80 mg 04/29/17 21:00 04/29/17 22:16 Lipitor PO 80 mg HS [facility] Administration Furosemide 40 mg 04/29/17 22:00 04/30/17 00:04 Lasix PO 40 mg BID@0900,1600 [facility] Administration Isosorbide Mononitrate 15 mg 04/30/17 09:00 Imdur PO DAILY [facility] Metoprolol Tartrate 25 mg 04/29/17 22:00 04/30/17 00:04 Lopressor PO 25 mg BID [facility] Administration Nitroglycerin 1 inch 04/30/17 00:00 04/30/17 05:19 Nitro-Bid Oint TOPICAL 1 inch Q6HR [facility] Administration Nitroglycerin 0.4 mg 04/29/17 19:35 Nitrostat SUBLINGUAL Q5M PRN Chest Pain Pantoprazole Sodium 40 mg 04/29/17 22:00 04/30/17 00:04 Protonix IVP 40 mg BID [facility] Administration Intake and Output 04/29/17 04/30/17 04/30/17 22:59 06:59 14:59 Intake Total 0 620 Output Total 250 500 Balance -250 120 Intake: Blood Product 0 620 Rc As-3 Unit 0 310 [id number] Output: Urine 250 500 Other: # Voids 1 Weight 123.7 kg 123.7 kg 04/30/17 06:25 04/30/17 05:27 EKG Interpretations (text) EKG shows atrial fibrillation with a controlled ventricular response Assessment and Plan Plan: Assessment and plan #1 symptoms of significant bilateral lower extremity swelling, mild congestive cardiac failure diastolic in nature acute on chronic #2 severe peripheral vascular disease with prior stenting and surgery, on Plavix and aspirin #3 known history of coronary artery disease with prior bypass surgery and stent placement #4 severe aortic stenosis with prior aortic valve replacement #5 prior history of smoking #6 EtOH abuse, patient drinks at least 10 alcoholic beverages per day #7 acute blood loss anemia, hemoglobin 7.1 on admission, 6.5 this morning, stool for occult blood positive #8 hypertension #9 hyperlipidemia #10 abnormal troponins, not consistent with acute coronary syndrome, likely secondary to anemia and oxygen supply and demand mismatch #11 hypokalemia #12 paroxysmal atrial fibrillation, on Eliquis for anticoagulation Plan We will obtain an echocardiogram with Doppler study. Recommend GI consultation and blood transfusion. We will decrease the aspirin to 81 mg daily, Eliquis is currently on hold. Initiate IV Lasix. Monitor intake and output along with daily weights, replace potassium. Patient has been encouraged regarding EtOH cessation. Further recommendations to follow. DNP note has been reviewed, I agree with a documented findings and plan of care. Patient was seen and examined.
[2017-04-30] MEDS ORDERED: ASPIRIN 325 MG TAB PO SCH (09:00)
[2017-04-30] MEDS ORDERED: FUROSEMIDE 10 MG/ML 4 ML VIAL IV SCH (09:00)
[2017-04-30] MEDS: AMIODARONE 200 MG TAB PO SCH (09:24)
[2017-04-30] MEDS: ISOSORBIDE MONONITRATE ER 15 MG TAB PO SCH (09:25)
[2017-04-30] MEDS: ASPIRIN 81 MG PO SCH (09:27)
--- NOTE | 2017-04-30 09:52 | ECHOF ---
Referral Reason:chf MEASUREMENTS -------- HEIGHT: 180.3 cm WEIGHT: 123.4 kg BP: 103/50 IVSd: 1.4 cm (0.6 - 1.1) LVIDd: 4.1 cm (3.9 - 5.3) LVPWd: 1.4 cm (0.6 - 1.1) IVSs: 1.9 cm LVIDs: 2.6 cm LVPWs: 1.8 cm Ao Diam: 3.0 cm (2.0 - 3.7) AV Cusp: 1.3 cm (1.5 - 2.6) LA Diam: 4.7 cm (2.7 - 3.8) MV EXCURSION: 22.213 mm (> 18.000) MV EF SLOPE: 135 mm/s (70 - 150) EPSS: 1.5 cm MV E Reese: 1.52 m/s MV DecT: 186 ms MV A Reese: 0.42 m/s MV E/A Ratio: 3.58 AV maxP.00 mmHg AV meanP.81 mmHg RAP: 5.00 mmHg RVSP: 17.16 mmHg FINDINGS -------- Sinus rhythm. This was a technically adequate study. The left ventricular size is normal. There is moderate concentric left ventricular hypertrophy. O verall left ventricular systolic function is normal with, an EF between 55 - 60 %. The right ventricle is normal in size and function. The left atrium is mildly dilated. The right atrium is normal in size. Peak/mean gradient across the Aortic Valve is 31.00mmHg / 19.81mmHg. Normally functioning bioprosth etic valve. Mild mitral annular calcification present. Mild mitral regurgitation is present. Mild tricuspid regurgitation present. Right ventricular systolic pressure is normal at < 35 mmHg. The right ventricular systolic pressure, as measured by Doppler, is 17.16mmHg. The pulmonic valve was not well visualized. There is no pulmonic regurgitation present. The aortic root size is normal. There is no pericardial effusion. CONCLUSIONS -------- 1. Sinus rhythm. 2. This was a technically adequate study. 3. The left ventricular size is normal. 4. There is moderate concentric left ventricular hypertrophy. 5. Overall left ventricular systolic function is normal with, an EF between 55 - 60 %. 6. The left atrium is mildly dilated. 7. Peak/mean gradient across the Aortic Valve is 31.00mmHg / 19.81mmHg. 8. Normally functioning bioprosthetic valve. 9. Mild mitral annular calcification present. 10. Mild mitral regurgitation is present. 11. Mild tricuspid regurgitation present. 12. Right ventricular systolic pressure is normal at < 35 mmHg. 13. The pulmonic valve was not well visualized. 14. There is no pulmonic regurgitation present. 15. The aortic root size is normal. 16. There is no pericardial effusion. 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
--- NOTE | 2017-04-30 10:07 | P.CONS ---
History of Present Illness - Reason for Consult Consult date: 04/30/17 GI bleed Requesting physician: Jin Partida - History of Present Illness 67-year-old gentleman patient Dr. Kessler with a past medical history of EtOH abuse drinks 8-10 beers daily, atrial fibrillation, skin carcinoma, hyperlipidemia, hypertension, NM, CABG/AVR 2012, and PVD. Patient presents with chest pain and new onset of black colored bowel movements. I color bowel movements have been intermittent over the last 2 weeks. Last colonoscopy performed at the [place] about 4 years ago to his memory was normal. No history of EGD or peptic ulcer disease. No NSAIDs. Denies hematemesis or hematochezia. Some mild indigestion in the midsternal epigastric region describes it as pressure-like 7 out of 10. No bloody bowel movement since admission. Home medications include but not limited to Plavix and Eliquis; last dose of Eliquis yesterday. Troponin 0.13. BUN 26. Creatinine 1.1. Admission hemoglobin 7.1. MCV 91 platelet 238. Hemoglobin decreased to 6.5. Received 1 units of blood last night repeat CBC is pending. Hemoglobin in June 2016 was 12.2. Review of Systems Constitutional: Denies fever, chills, sweats, weight gain, or loss. HEENT: Negative for migraines, blurred vision or loss, earaches, drainage, tinnitus, oral mucosal lesions, dysphagia, or odynophagia. Cardiac: Atrial fibrillation. Hyperlipidemia. Hypertension. NM. PVD. CAD. AVR. CABG. Negative for chest pain, arrhythmias, or palpitation. Respiratory: Negative for shortness of breath, hemoptysis, cough, or sputum production. Gastrointestinal: See HPI for pertinent findings. Genitourinary: Negative for hematuria, urgency, frequency, polyuria, dysuria, or penile discharge. Musculoskeletal: Negative for muscle aches, swelling, arthritis, and arthralgias. Neurologic: Negative for stroke or TIA. Endocrine: Negative for thyroid problems. Skin: Negative for rash or itching. Psychiatric: Negative history for depression and anxiety Past Medical History Past Medical History: Atrial Fibrillation, Cancer, Hyperlipidemia, Hypertension , Myocardial Infarction ([place]), Osteoarthritis (OA), Vascular Disorder Additional Past Medical History / Comment(s): PVD, BACK PAIN, SWELLING IN ANKLES AND FEET. , STATES SKIN CANCER WITH RECENT TREATMENT. Last Myocardial Infarction Date:: 01-20-13 History of Any Multi-Drug Resistant Organisms: None Reported Past Surgical History: Heart Catheterization, Heart Catheterization With Stent Additional Past Surgical History / Comment(s): aortic valve replacement 2012, aortogram, pt states 2 failed stent replacement-1 to each leg, PAIN CLINIC PROCEDURES, ABD. [id number] plastiogram into, Past Anesthesia/Blood Transfusion Reactions: No Reported Reaction Date of Last Stent Placement:: 05/30/15 Past Psychological History: No Psychological Hx Reported Smoking Status: Former smoker Past Alcohol Use History: Daily Additional Past Alcohol Use History / Comment(s): quit smoking October 2014. smoked for >50 yrs, STATES DRINKS 6 -7 BEERS DAILY Past Drug Use History: None Reported - Past Family History Mother Family Medical History: Deep Vein Thrombosis (DVT) Medications and Allergies Home Medications Medication Instructions Recorded Confirmed Type Atorvastatin [Lipitor] 80 mg PO HS 10/06/14 04/29/17 History Cholecalciferol [Vitamin D3] 2,000 unit PO DAILY 10/06/14 04/29/17 History Metoprolol Tartrate [Lopressor] 25 mg PO BID 10/06/14 04/29/17 History Multivit-Min/FA/Lycopene/Lut 1 tab PO DAILY 10/06/14 04/29/17 History [Centrum Silver Tablet] [place]-3 Fatty Acids/Fish Oil [Fish 1 cap PO DAILY 10/06/14 04/29/17 History Oil 1,000 mg Softgel] Nitroglycerin Sl Tabs [Nitrostat] 0.4 mg SUBLINGUAL Q5M PRN #25 tab 05/14/15 Rx Clopidogrel [Plavix] 75 tab PO DAILY 11/14/15 04/29/17 History Furosemide [Lasix] 40 mg PO BID 11/14/15 04/29/17 History Potassium Chloride [Klor-Con 20 meq PO DAILY 11/14/15 04/29/17 History Packets] Amiodarone HCl [Pacerone] 200 mg PO DAILY 06/27/16 04/29/17 History Apixaban [Eliquis] 5 mg PO BID 10/08/16 04/29/17 History Gabapentin [Neurontin] 400 mg PO TID #90 cap 10/08/16 04/29/17 Rx Ferrous Sulfate [Feosol] 1 tab PO DAILY 04/17/17 04/29/17 History Hydrocodone/Acetaminophen 325 mg PO Q6HR PRN 04/17/17 04/29/17 History [Hydrocodon-Acetaminophen 5-325] Isosorbide Dinitrate 15 mg PO DAILY 04/29/17 04/29/17 History Isosorbide Mononitrate ER [Imdur] 15 mg PO DAILY 04/29/17 04/29/17 History Allergies Allergy/AdvReac Type Severity Reaction Status Date / Time No Known Allergies Allergy Verified 04/29/17 18:21 Physical Exam Vitals: Vital Signs Temp Pulse Pulse Resp BP BP Pulse Ox 04/30/17 09:58 98.5 F 90 18 98/54 95 04/30/17 09:28 98.7 F 70 18 128/80 98 04/30/17 09:18 98.7 F 68 18 133/88 04/30/17 07:51 98.2 F 70 18 103/50 98 04/30/17 03:12 98.2 F 77 18 109/60 98 04/30/17 03:05 76 18 04/30/17 01:07 98.8 F 68 18 126/60 98 04/30/17 00:00 98.5 F 76 18 124/57 98 04/29/17 22:39 98.1 F 87 18 129/85 99 04/29/17 22:19 97.8 F 83 18 147/67 99 04/29/17 22:09 98.1 F 76 18 140/62 97 04/29/17 21:59 98.3 F 71 18 148/69 98 04/29/17 21:57 97.9 F 88 18 165/70 98 04/29/17 21:54 98.1 F 87 16 129/85 99 04/29/17 20:56 75 18 139/73 99 04/29/17 19:56 82 18 98/51 100 04/29/17 17:18 98.1 F 71 22 141/64 98 Intake and Output 04/29/17 04/30/17 04/30/17 22:59 06:59 14:59 Intake Total 0 620 0 Output Total 250 500 Balance -250 120 0 Intake: Blood Product 0 620 0 Rc As-1 Unit 0 [id number] Rc As-3 Unit 0 310 [id number] Output: Urine 250 500 Other: # Voids 1 Weight 123.7 kg 123.7 kg General appearance: The patient is alert, oriented, in no acute distress. HET: Head is normocephalic and atraumatic. Pupils are equal and reactive. Oropharynx is clear without lesions. Neck: Supple without lymphadenopathy. Trachea midline. Heart: S1 S2. Regular rate and rhythm. Lungs: No crackles or wheezes are heard. Abdomen: Soft, nontender, nondistended with bowel sounds. No peritoneal signs. No palpable organomegaly or masses. Extremities: Normal skin color and turgor. No cyanosis, rash, ulceration, clubbing, or edema. Radial and pedal pulses are 2/4 bilaterally. Neurological: No focal deficits. Strength and sensation are grossly intact. Results CBC & Chem 7: 04/30/17 06:25 04/30/17 05:27 Labs: Abnormal Lab Results - Last 24 Hours (Table) 04/29/17 04/29/17 04/29/17 Range/Units 17:35 17:35 17:35 RBC 2.46 L (4.30-5.90) m/uL Hgb 7.1 L (13.0-17.5) gm/dL Hct 22.6 L (39.0-53.0) % MCHC (31.0-37.0) g/dL RDW 16.2 H (11.5-15.5) % Lymphocytes # (1.0-4.8) k/uL INR (<1.2) Sodium 133 L (137-145) mmol/L Potassium (3.5-5.1) mmol/L Chloride 93 L (98-107) mmol/L BUN 26 H (9-20) mg/dL Magnesium 1.4 L (1.6-2.3) mg/dL Total Creatine Kinase 214 H (55-170) U/L CK-MB (CK-2) 5.5 H* (0.0-2.4) ng/mL Troponin I 0.104 H* (0.000-0.034) ng/mL Crossmatch 04/29/17 04/29/17 04/30/17 Range/Units 17:35 20:04 01:53 RBC (4.30-5.90) m/uL Hgb (13.0-17.5) gm/dL Hct (39.0-53.0) % MCHC (31.0-37.0) g/dL RDW (11.5-15.5) % Lymphocytes # (1.0-4.8) k/uL INR 1.2 H (<1.2) Sodium (137-145) mmol/L Potassium (3.5-5.1) mmol/L Chloride (98-107) mmol/L BUN (9-20) mg/dL Magnesium (1.6-2.3) mg/dL Total Creatine Kinase 190 H (55-170) U/L CK-MB (CK-2) 3.9 H* (0.0-2.4) ng/mL Troponin I 0.120 H* (0.000-0.034) ng/mL Crossmatch See Detail 04/30/17 04/30/17 04/30/17 Range/Units 05:27 05:27 05:27 RBC 2.26 L (4.30-5.90) m/uL Hgb 6.5 L* (13.0-17.5) gm/dL Hct 21.6 L (39.0-53.0) % MCHC 30.2 L (31.0-37.0) g/dL RDW 16.0 H (11.5-15.5) % Lymphocytes # 0.8 L (1.0-4.8) k/uL INR (<1.2) Sodium 133 L (137-145) mmol/L Potassium 3.4 L (3.5-5.1) mmol/L Chloride (98-107) mmol/L BUN 22 H (9-20) mg/dL Magnesium (1.6-2.3) mg/dL Total Creatine Kinase 194 H (55-170) U/L CK-MB (CK-2) 3.7 H* (0.0-2.4) ng/mL Troponin I 0.112 H* (0.000-0.034) ng/mL Crossmatch 04/30/17 Range/Units 06:25 RBC 2.24 L (4.30-5.90) m/uL Hgb 6.5 L* (13.0-17.5) gm/dL Hct 21.1 L (39.0-53.0) % MCHC 30.7 L (31.0-37.0) g/dL RDW 16.0 H (11.5-15.5) % Lymphocytes # 0.8 L (1.0-4.8) k/uL INR (<1.2) Sodium (137-145) mmol/L Potassium (3.5-5.1) mmol/L Chloride (98-107) mmol/L BUN (9-20) mg/dL Magnesium (1.6-2.3) mg/dL Total Creatine Kinase (55-170) U/L CK-MB (CK-2) (0.0-2.4) ng/mL Troponin I (0.000-0.034) ng/mL Crossmatch Assessment and Plan (1) GI bleed Narrative/Plan: 67-year-old gentleman with a significant cardiac history maintained on anticoagulation presents with acute chest pain epigastric discomfort with intermittent melanotic stools 2 weeks. Possible peptic ulcer disease possible alcohol gastropathy however other pathology cannot be entirely excluded. Current Visit: Yes Status: Acute Code(s): K92.2 - GASTROINTESTINAL HEMORRHAGE, UNSPECIFIED SNOMED Code(s): 06803138 (2) Acute blood loss anemia Current Visit: Yes Status: Acute Code(s): D62 - ACUTE POSTHEMORRHAGIC ANEMIA SNOMED Code(s): 171273210 (3) H/O ETOH abuse Current Visit: Yes Status: Acute Code(s): Z87.898 - PERSONAL HISTORY OF OTHER SPECIFIED CONDITIONS SNOMED Code(s): 230199812 Plan: 1. Continue to hold anticoagulation. 2. EGD scheduled for tomorrow. 3. Protonix 40 mg IV daily. 4. CBC monitoring. Blood transfusion as indicated. 5. Will allow modify clear liquid diet today. Nothing by mouth after midnight. 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 The patient has indicated understanding and acceptance of the risks and procedures discussed. Thank you for this kind referral and the opportunity to participate in the care of your patient. This consultation was discussed with Dr. Price. The impression and plan of care have been directed as dictated.
[2017-04-30] MEDS ORDERED: NITROGLYCERIN SL TABS 0.4 MG TAB SUBLINGUAL PRN (11:33)
[2017-04-30] MEDS ORDERED: HYDROcodone/APAP 5-325MG 1 EACH TAB PO PRN (11:33)
[2017-04-30] MEDS ORDERED: ISOSORBIDE DINITRATE PO SCH (11:45)
--- NOTE | 2017-04-30 12:44 | HP ---
HISTORY AND PHYSICAL DATE OF ADMISSION: 04/29/2017 PRESENT COMPLAINT: Edema, short of breath. HISTORY OF PRESENTING COMPLAINT: This is a pleasant 67-year-old patient of Dr. Kessler, chronic stable medical conditions include hypertension, valve replaced, aortic stenosis, peripheral arterial disease, osteoarthritis, coronary artery disease, atrial fibrillation, hyperlipidemia. The patient's last cardiac catheterization was in July of 2015. She was found to have a patent stent to the circumflex and LAD was found to be chronically occluded. The patient continues to drink about 6 or 7 beers a day, is an ex-smoker. The patient is also found to have low hemoglobin when he came in, which has dropped down to the 6.5 and blood has been ordered. The patient has been having black stools for last 3 weeks. The patient is on Plavix and Eliquis. The patient also been having increasing edema of the lower extremities for the last 2 weeks going on to effect the abdomen. The patient uses 4 pillows at night has been getting short of breath. Found to be in congestive heart failure. REVIEW OF SYSTEMS: CONSTITUTIONAL: Tired. HEENT: None. RESPIRATORY: As above. CARDIOVASCULAR: As above. GASTROINTESTINAL: As above. No abdominal pain. GENITOURINARY: None. MUSCULOSKELETAL: Arthritic pain in joints. DERMATOLOGICAL: None HEMATOLOGICAL: None. LYMPHATICS: None. PSYCHIATRY: None. NEUROLOGICAL: None. PAST HISTORY: Past history of hypertension, aortic stenosis, valve replaced, peripheral arterial disease, osteoarthritis, coronary artery disease, hyperlipidemia, atrial fibrillation. PAST SURGICAL HISTORY: Cardiac catheterization with stent, aortic valve replacement 2012, aortogram, 2 failed stent replacement, one to each leg, pain clinic procedures. SOCIAL HISTORY: The patient smoked for more than 50 years, stopped in 2014. Still drinks about 6 to 7 beers daily. FAMILY HISTORY: DVT. HOME MEDICATIONS: 1. [place] 5 one tablet q.6 p.r.n. 2. Fish oil 1 capsule p.o. daily. 3. Lopressor 25 p.o. b.i.d. 4. Iron one tablet p.o. daily. 5. Centrum Silver 1 tab p.o. daily. 6. Neurontin 400 mg p.o. t.i.d. 7. Isosorbide dinitrate 15 mg p.o. daily. 8. Imdur ER 15 mg p.o. daily. 9. Eliquis 5 mg b.i.d. 10.Potassium 20 mEq p.o. daily. 11.Vitamin D3, 2000 units p.o. daily. 12.Lipitor 80 mg q.h.s. 13.Lasix 40 mg b.i.d. 14.Plavix 75 mg p.o. daily. 15.Amiodarone 200 mg p.o. daily. 16.Nitrostat 0.4 sublingual q.5 p.r.n. ALLERGIES: None. PHYSICAL EXAMINATION: On examination, vital signs on presentation: Temperature 98.1, pulse 71, respiratory rate 22, blood pressure 141/64, pulse ox 98% on room air. GENERAL APPEARANCE: Well built, BMI 37, sitting up, short of breath. EYES: Pupils equal. Conjunctivae normal. HENT: External appearance of nose and ears normal. Oral cavity normal. NECK: JVD unable to assess. Mass not palpable. RESPIRATORY: Effort increased. LUNGS: Diminished breath sounds. CARDIOVASCULAR: Heart sounds muffled. Gross edema present. ABDOMEN: Distended, soft. Liver and spleen not palpable. LYMPHATIC: No lymph node palpable in the neck or axillae. PSYCHIATRY: Alert and oriented x3. Mood and affect normal. NEUROLOGICAL: Pupils equal. Cranial nerves grossly intact. Power and sensation grossly intact. INVESTIGATIONS: White count 9.4, hemoglobin 7.1, repeat 6.5, platelets 238. Potassium 3.6. BUN 26, creatinine 1.10. Troponin 0.104. ProBNP 2550. Chest x-ray shows cardiomegaly, venous congestion with also positive horizontal and oblique fissure. ASSESSMENT: 1. Acute on chronic congestive heart failure exacerbation in a patient with known coronary artery disease from diastolic dysfunction. Ejection fraction 55% to 60% from 2-D echocardiogram this morning. 2. Paroxysmal atrial fibrillation currently in sinus rhythm, chronically on Eliquis. 3. Acute gastrointestinal bleed from patient being on Eliquis and Plavix. 4. Essential hypertension. 5. History of severe aortic stenosis with valve being replaced. 6. Peripheral arterial disease. 7. Primary osteoarthritis in multiple joints bilateral. 8. Coronary artery disease with last cardiac cath showing chronically occluded LAD and stent to the circumflex. 9. Hyperlipidemia. 10.Obesity; body mass index 37. 11.Acute blood loss anemia symptomatic. The patient is getting blood transfusion. 12.Troponin leak from congestive heart failure, not acute coronary syndrome. PLAN: Home medications are resumed. The patient's Eliquis and Plavix have been held. Getting blood transfusion. GI was consulted so was Cardiology. I's and O's will be closely followed. Prognosis guarded. AVIVA / ENEDINAN: [id number] /
[2017-04-30] MEDS: POTASSIUM CHLORIDE ER 20 MEQ TAB.ER PO SCH (13:11)
[2017-04-30] MEDS: FUROSEMIDE 250 MG in SODIUM CHLORIDE 0.9% 225 ML IVP SCH (13:11)
[2017-04-30 17:01] LABS: Anisocytosis Slight; HCT 24.7 % (39.0-53.0); HGB 7.5 gm/dL (13.0-17.5); Hypochromasia Moderate; MCH 28.8 pg (25.0-35.0); MCHC 30.6 g/dL (31.0-37.0); MCV 94.3 fL (80.0-100.0); Mean Platelet Volume 7.5; Platelet Count 191 k/uL (150-450); Poikilocytosis Slight; RBC 2.61 m/uL (4.30-5.90); RDW 16.1 % (11.5-15.5); WBC 7.6 k/uL (3.8-10.6)
[2017-04-30] MEDS: GABAPENTIN 400 MG CAP PO SCH ×2 (17:18→20:44)
[2017-04-30] MEDS: ATORVASTATIN 80 MG TAB PO SCH (20:44)
[2017-05-01] MEDS: NITROGLYCERIN OINT 1 INCH/GM PACKET TOPICAL SCH ×4 (00:16→16:54)
[2017-05-01 06:40] LABS: Anion Gap 12 mmol/L; Blood Urea Nitrogen 18 mg/dL (9-20); Calcium 8.3 mg/dL (8.4-10.2); Carbon Dioxide 29 mmol/L (22-30); Chloride 97 mmol/L (98-107); Glucose 103 mg/dL (74-99); Potassium 3.2 mmol/L (3.5-5.1); Sodium 138 mmol/L (137-145)
[2017-05-01] MEDS: AMIODARONE 200 MG TAB PO SCH (08:00)
[2017-05-01] MEDS: METOPROLOL TARTRATE 25 MG TAB PO SCH ×2 (08:00→21:10)
[2017-05-01] MEDS: ASPIRIN 81 MG PO SCH (08:00)
[2017-05-01] MEDS: GABAPENTIN 400 MG CAP PO SCH ×3 (08:00→21:10)
[2017-05-01] MEDS: ISOSORBIDE MONONITRATE ER 15 MG TAB PO SCH (08:00)
[2017-05-01] MEDS: PANTOPRAZOLE 40 MG/10 ML VIAL IVP SCH ×2 (08:01→21:10)
[2017-05-01] MEDS: POTASSIUM CHLORIDE ER 20 MEQ TAB.ER PO SCH ×4 (08:01→16:54)
[2017-05-01] MEDS ORDERED: GLYCOPYRROLATE 0.2 MG/ML 2 ML VIAL ONE (09:32)
[2017-05-01] MEDS ORDERED: fentaNYL (PF) 50 MCG/ML 2 ML AMP ONE (09:32)
[2017-05-01] MEDS ORDERED: PROPOFOL 10 MG/ML 20 ML VIAL IV ONE (09:32)
[2017-05-01] MEDS ORDERED: LIDOCAINE 1% INJ 10MG/ML (20 ML MDV) ONE (09:32)
[2017-05-01] MEDS ORDERED: LACTATED RINGERS 1,000 ML IV ONE ×2 (09:35)
--- NOTE | 2017-05-01 09:49 | P.PCN ---
Date of Procedure: 05/01/17 Procedure(s) Performed: BRIEF HISTORY: Patient is a 67-year-old, pleasant, white male, scheduled for an upper endoscopy as a part of evaluation of severe symptomatic anemia with a hemoglobin of 6.5 g/dL and intermittent black stools for the last 1 month duration. He has been on eliquis and Plavix which are currently on hold. His last endoscopy was 6 years ago. He is hence scheduled for an upper endoscopy to evaluate for upper GI source of bleeding. PROCEDURE PERFORMED: Esophagogastroduodenoscopy with biopsy. PREOPERATIVE DIAGNOSIS: Severe symptomatic anemia and black tarry stools of one month duration. IV sedation per anesthesia. PROCEDURE: After informed consent was obtained, the patient was brought into the endoscopy unit. IV sedation was administered by Anesthesia under continuous monitoring. Initially the Olympus GIF-140 video endoscope was inserted into the mouth. Esophagus intubated without any difficulty. It was gradually advanced into the stomach and duodenum and carefully examined. The bulb and the second part of the duodenum appeared normal. The scope at this time was withdrawn to the stomach, adequately insufflated with air, and upon careful examination, mucosa of the antrum, had mild patchy areas of erythema noted. The body, cardia and the fundus appeared normal. The scope was then withdrawn into the esophagus. The GE junction was located at 43 cm from the incisors. It appeared irregular and there was a short tongue of Zhu's appearing mucosa extending 5 mm proximal to the GE junction which was biopsied. There was no esophagitis seen. The rest of esophagus appeared normal and the patient tolerated the procedure well. IMPRESSION: 1. Minimal gastritis. 2. Short segment Zhu's esophagus. RECOMMENDATIONS: The findings of this examination were discussed with the patient. Since there was no obvious source of bleeding identified, he will be scheduled for a colonoscopy tomorrow to investigate further for severe symptomatic anemia and Hemoccult-positive stool..
[2017-05-01] MEDS: FUROSEMIDE 250 MG in SODIUM CHLORIDE 0.9% 225 ML IVP SCH (12:34)
[2017-05-01] MEDS ORDERED: Potassium Replacement Protocol 1 EACH MISC MISCELLANE PRN (13:22)
[2017-05-01 14:54] LABS: Anisocytosis Slight; HCT 26.3 % (39.0-53.0); Hypochromasia Marked; MCH 29.4 pg (25.0-35.0); MCHC 30.3 g/dL (31.0-37.0); MCV 97.3 fL (80.0-100.0); Mean Platelet Volume 7.7; Platelet Count 197 k/uL (150-450); RDW 16.1 % (11.5-15.5); WBC 8.1 k/uL (3.8-10.6)
--- NOTE | 2017-05-01 15:30 | P.PN ---
Subjective Progress Note Date: 05/01/17 This is a 67-year-old gentleman who follows regularly with Dr. VC Rodas in the office. He has a known history of coronary artery disease with prior bypass surgery, severe aortic stenosis with prior aVR, peripheral vascular disease with several stent placement, he also underwent a fem fem bypass. Patient also has history of hypertension, hyperlipidemia, paroxysmal atrial fibrillation for which he is on Eliquis, Patient also drinks at least 10 alcoholic beverages per day. He presents to the hospital on this occasion with symptoms of 2-3 weeks duration of worsening edema in his lower extremities, patient also has been experiencing pressure in his mid epigastric and lower chest area. He did go to see his vascular surgeon who recommended him to follow -up with his metal finisher, patient states he call the cardiology office,-year- old who answered the phone told him to follow-up with his primary care doctor. Patient also states that for the past few days he has also noticed black stools. EKG on admission here showed atrial fibrillation with a controlled ventricular response this morning's EKG continues to show A. fib with controlled ventricular response. Chest x-ray shows pulmonary fibrotic changes, small right pleural effusion increased to prior exam area no overt congestive heart failure. The pressure 102/50, heart rate in the 70s. Laboratory data was reviewed, hemoglobin on admission 7.1, 6.5 this morning. Platelet count 181. Sodium 133, potassium 3.4, BUN 22, creatinine 0.9. Troponins 0.10, 0.12, 0.11. Stool for occult blood is positive. At the time of examination this morning, he denies any chest discomfort, does have some abdominal discomfort and complains of significant pain in his right leg. 05/01/2017 Patient seen and examined today, underwent an EGD Dr. Willis today which revealed minimal gastritis and a short segment of Zhu's esophagus. He is scheduled tomorrow to undergo colonoscopy. Echocardiogram with Doppler study was performed which revealed an ejection fraction of 55-60%. He did receive 2 units of packed red blood cells, hemoglobin today is 8.0. Potassium 3.2, BUN 18 , creatinine 1.0. Patient is getting potassium replacement. Patient's weight is down 4 kg today. Objective - Vital Signs Vital signs: Vital Signs Temp 96.8 F L 05/01/17 11:09 Pulse 89 05/01/17 11:39 Resp 14 05/01/17 11:39 BP 100/50 05/01/17 11:09 Pulse Ox 96 05/01/17 11:09 Intake & Output 04/30/17 05/01/17 05/01/17 18:59 06:59 18:59 Intake Total 1185 1173.833 Output Total 1950 1300 450 Balance -765 -1300 723.833 Weight 119.6 kg Intake: IV 100 Intake, IV Titration 233.833 Amount Furosemide 250 mg In 233.833 Sodium Chloride 0.9% 225 ml @ 10 MG/HR 10 mls/hr IVP .Q24H [facility] Rx#: [id number] Oral 875 840 Blood Product 310 Rc As-1 Unit 310 [id number] Output: Urine 1950 1300 450 Other: # Voids 2 4 - Exam PHYSICAL EXAMINATION: HEENT: Head is atraumatic, normocephalic. Pupils equal, round. Neck is supple. There is no elevated jugular venous pressure. HEART EXAMINATION: Heart S1 and S2 irregularly irregular systolic murmur is heard CHEST EXAMINATION: Lungs reveal coarse crackles to the bases. ABDOMEN: Soft, obese, positive generalized tenderness . EXTREMITIES: Doppler to 1+ peripheral pulses, 3+ edema, mostly in his bilateral feet, edema also present in the lower extremities NEUROLOGIC patient is awake, alert and oriented -3. - Labs CBC & Chem 7: 05/01/17 06:00 05/01/17 06:00 Labs: Abnormal Lab Results - Last 24 Hours (Table) 04/29/17 04/30/17 05/01/17 Range/Units 20:04 16:34 06:00 RBC 2.61 L (4.30-5.90) m/uL Hgb 7.5 L (13.0-17.5) gm/dL Hct 24.7 L (39.0-53.0) % MCHC 30.6 L (31.0-37.0) g/dL RDW 16.1 H (11.5-15.5) % Potassium 3.2 L (3.5-5.1) mmol/L Chloride 97 L (98-107) mmol/L Glucose 103 H (74-99) mg/dL Calcium 8.3 L (8.4-10.2) mg/dL Crossmatch See Detail 05/01/17 Range/Units 06:00 RBC 2.70 L (4.30-5.90) m/uL Hgb 8.0 L (13.0-17.5) gm/dL Hct 26.3 L (39.0-53.0) % MCHC 30.3 L (31.0-37.0) g/dL RDW 16.1 H (11.5-15.5) % Potassium (3.5-5.1) mmol/L Chloride (98-107) mmol/L Glucose (74-99) mg/dL Calcium (8.4-10.2) mg/dL Crossmatch Assessment and Plan Plan: Assessment and plan #1 symptoms of significant bilateral lower extremity swelling, mild congestive cardiac failure diastolic in nature acute on chronic #2 severe peripheral vascular disease with prior stenting and surgery, on Plavix and aspirin #3 known history of coronary artery disease with prior bypass surgery and stent placement #4 severe aortic stenosis with prior aortic valve replacement #5 prior history of smoking #6 EtOH abuse, patient drinks at least 10 alcoholic beverages per day #7 acute blood loss anemia, hemoglobin 7.1 on admission, 6.5 this morning, stool for occult blood positive #8 hypertension #9 hyperlipidemia #10 abnormal troponins, not consistent with acute coronary syndrome, likely secondary to anemia and oxygen supply and demand mismatch #11 hypokalemia #12 paroxysmal atrial fibrillation, on Eliquis for anticoagulation Plan Echocardiogram with Doppler study was performed which revealed a normal left ventricular systolic function. Patient underwent an EGD today which revealed minimal gastritis with a short segment of Zhu's esophagus. He is scheduled tomorrow to undergo a colonoscopy. Anticoagulation continues to be on hold. DNP note has been reviewed, I agree with a documented findings and plan of care. Patient was seen and examined.
[2017-05-01] MEDS ORDERED: PEG 3350-NA SULF,BICARB,CL/KCL 4,000 ML BOTTLE PO ONE ×2 (16:00→17:00)
--- NOTE | 2017-05-01 18:19 | P.PN ---
Progress Note - Text Progress Note Date: 05/01/17 DATE OF SERVICE: 05/01/2017 PRESENTING COMPLAINT: Edema, shortness of breath. HISTORY OF PRESENT ILLNESS: 67-year-old male with history of cardiac catheterization in July 2015 found to have patent stent to the circumflex and LAD was found to be at occluded. Patient presented to the emergency department with complaints of shortness of breath hemoglobin was found to be 6.5 and confirms that he had been having black stools for the previous 3 weeks. Patient is on Plavix and Eliquis also found to have increasing edema the lower extremities with previous 2 weeks with ongoing affect the abdomen. Had use 4 pillows at nighttime due to the shortness of breath found to be in congestive heart failure admitted for the same. INTERVAL HISTORY: 05/01/2017: Sitting up at the edge of the bed, status post EGD with Dr. Willis today revealing minimal gastritis with a short segment of Zhu's esophagus. He will undergo colonoscopy tomorrow. Diet is been returned to clear liquids for the remainder of the day and then nothing by mouth after midnight. Received 2 units of blood today hemoglobin is 8.0. Potassium 3.2 received supplement. Ambulatory in the room and hallway. REVIEW OF SYSTEMS: Done for constitutional ,cardiovascular, GI, pulmonary with relevant findings as above. CURRENT MEDICATIONS [place], amiodarone, aspirin, Lipitor, Lasix drip, gabapentin, Imdur, Lopressor, Nitrostat, Protonix, potassium chloride. PHYSICAL EXAM VITAL SIGNS: Temperature 97.5, pulse 85, respirations 14, blood pressure 120/56, oxygen saturation 96% on room air. GENERAL APPEARANCE: Sitting up on the edge of the bed, not in distress. HENT: Normocephalic, JVD not raised. Mass not palpable. Oral cavity normal, external appearance of ears and nose normal. EYES:Pupils equal. Conjunctiva normal. RESPIRATORY: Respiratory effort normal. Lungs diminished to auscultation. CARDIOVASCULAR: First and second sounds normal. Gross edema. ABDOMEN: Soft. Liver and spleen not palpable. No tenderness. No mass palpable. PSYCHIATRY: Alert and oriented x3. Mood and affect normal. INVESTIGATIONS: LABS: Hemoglobin 8.0, potassium 3.2, chloride 97, calcium 8.3. EGD: Minimal gastritis, short segment Zhu's esophagus. ASSESSMENT: -Acute on chronic congestive heart failure exacerbation in a patient with known coronary artery disease from diastolic dysfunction. Ejection fraction 55-60% from 2-D echocardiogram. -Paroxysmal atrial fibrillation currently in sinus rhythm, chronically on Eliquis. -Acute gastrointestinal bleed from patient being on Eliquis and Plavix. -Essential hypertension. -History of severe aortic stenosis without being replaced. 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 -Primary osteoarthritis in multiple joints bilateral. -Coronary artery disease with last cardiac cath showing chronically occluded LAD and stent to circumflex. -Hyperlipidemia. -Obesity body mass index 37. -Acute blood loss anemia, symptomatic. Hemoglobin is stable at 8.0 today. -Troponin leak from congestive heart failure, not acute coronary syndrome. PLAN: Hemoglobin stable at 8.0 today. Continue to hold Eliquis and Lasix. Scheduled for colonoscopy tomorrow morning. Plan of care discussed with the patient at bedside we will follow closely. CHILD ADOLESCENT CARE statement: Patient was seen and examined by nurse practitioner Vivian Romano and all elements of the case discussed with attending Dr. Partida
--- NOTE | 2017-05-01 20:06 | PN ---
PROGRESS NOTE DATE OF SERVICE: 05/01/2017 ATTENDING NOTE: The patient seen and examined by me. I discussed with my nurse practitioner, Ms. Romano. Patient admitted with CHF exacerbation, on IV Lasix drip, has put out over 3000 mL. Breathing is getting better. Edema is coming down. EGD today. EXAMINATION: Afebrile, pulse 89, respirations 14, blood pressure 100/50, pulse ox 96% on room air. LUNGS: Improved air entry. Decreased edema. ABDOMEN: Soft, nontender. INVESTIGATIONS: White count 8.1, hemoglobin 8. Potassium 3.2, BUN 18, creatinine 1.05. ASSESSMENT: 1. Acute on chronic congestive heart failure exacerbation from diastolic dysfunction, ejection fraction 55%-60% on IV Lasix drip. 2. Acute gastrointestinal bleed. The patient has been on Eliquis and Plavix. 3. Gastritis and Zhu esophagus per esophagogastroduodenoscopy. The patient is due for colonoscopy tomorrow, diuresing well. Blood thinners have been held. Care was discussed with the patient and at the bedside. MMODL / IJN: [id number] /
[2017-05-01] MEDS: ATORVASTATIN 80 MG TAB PO SCH (21:10)
[2017-05-02] MEDS: NITROGLYCERIN OINT 1 INCH/GM PACKET TOPICAL SCH ×5 (01:18→23:50)
[2017-05-02 06:46] LABS: Anion Gap 13 mmol/L; Blood Urea Nitrogen 17 mg/dL (9-20); Carbon Dioxide 28 mmol/L (22-30); Chloride 99 mmol/L (98-107); Glucose 113 mg/dL (74-99); Potassium 3.3 mmol/L (3.5-5.1); Sodium 140 mmol/L (137-145)
[2017-05-02] MEDS: PANTOPRAZOLE 40 MG/10 ML VIAL IVP SCH ×2 (08:48→21:15)
[2017-05-02] MEDS: ASPIRIN 81 MG PO SCH (08:48)
[2017-05-02] MEDS: METOPROLOL TARTRATE 25 MG TAB PO SCH ×2 (08:48→21:15)
[2017-05-02] MEDS: GABAPENTIN 400 MG CAP PO SCH ×3 (08:48→21:16)
[2017-05-02] MEDS: POTASSIUM CHLORIDE ER 20 MEQ TAB.ER PO SCH (08:49)
[2017-05-02] MEDS: ISOSORBIDE MONONITRATE ER 15 MG TAB PO SCH (08:49)
[2017-05-02] MEDS: AMIODARONE 200 MG TAB PO SCH (08:53)
[2017-05-02] MEDS: MULTIVITAMINS, THERA 1 EACH TAB PO SCH (11:36)
[2017-05-02] MEDS: FUROSEMIDE 250 MG in SODIUM CHLORIDE 0.9% 225 ML IVP SCH (11:38)
[2017-05-02] MEDS: LACTATED RINGERS 1,000 ML IV SCH (11:39)
[2017-05-02] MEDS ORDERED: IV FLUID CONTINUATION 1,000 ML IV ONE (13:01)
[2017-05-02] MEDS ORDERED: PROPOFOL 10 MG/ML 20 ML VIAL IV ONE (13:05)
[2017-05-02] MEDS ORDERED: ePHEDrine SULFATE/0.9% NACL/PF 50 MG/5 ML SYRINGE IV ONE (13:05)
--- NOTE | 2017-05-02 13:36 | P.PCN ---
Date of Procedure: 05/02/17 Procedure(s) Performed: BRIEF HISTORY: Patient is a 67-year-old pleasant white male, admitted to the hospital with severe symptomatic anemia and hemoglobin of 6.5 g/dL. He denies any active GI bleed. He had some dark colored stools and hence he underwent an upper endoscopy yesterday that showed mild gastritis and short segment Zhu' s esophagus but no evidence of active GI bleed. He is hence scheduled for an elective colonoscopy as a part of evaluation of anemia. PROCEDURE PERFORMED: Colonoscopy with snare polypectomy. PREOPERATIVE DIAGNOSIS: Severe symptomatic anemia. IV sedation per Anesthesia. PROCEDURE: After informed consent was obtained, the patient, was brought into the endoscopy unit. IV sedation was administered by Anesthesia under continuous monitoring. Digital rectal examination was normal. Initially the Olympus CF- 160 flexible video colonoscope was then inserted in the rectum, gradually advanced into the cecum without any difficulty. Careful examination was performed as the scope was gradually being withdrawn. Ileocecal valve and the appendiceal orifice were visualized and appeared normal. Prep was excellent. In the base of the cecum there was a 2 cm broad-based polyp that was removed by piecemeal snare polypectomy and complete polypectomy accomplished. In the ascending colon there was another 3 cm broad-based polyp that was also removed by piecemeal snare polypectomy and complete polypectomy was accomplished. The rest of the mucosa of the cecum, ascending colon, transverse colon, appeared normal. In the descending colon there was a 1 cm polyp removed by snare polypectomy. In the sigmoid colon there was another 1 cm polyp removed by snare polypectomy. In the mid rectum there was a 5 mm and 1. 5 cm polyp removed by snare polypectomy. There are moderate sigmoidal diverticulosis descendiseen. The rest of the ng colon, sigmoid colon, and rectum appeared normal. Retroflexion was performed in the rectum and no lesions were seen. The patient tolerated the procedure well. IMPRESSION: 2 cm broad-based cecal polyp status post polypectomy 3 cm broad-based ascending colon polyp status post polypectomy 1 cm descending colon polyp status post polypectomy 1 cm sigmoid colon polyp status post polypectomy 5 mm and 1.5 cm distal rectal polyp status post snare polypectomy moderate sigmoid diverticula cyst. RECOMMENDATIONS: Findings of this examination were discussed with the patient. He was advised to follow with the biopsy results. Based the biopsy results and can have a repeat colonoscopy in 3 years. Anticoagulation can be resumed in 2-3 days.
--- NOTE | 2017-05-02 15:18 | P.PN ---
Subjective Progress Note Date: 05/02/17 this is a pleasant 67-year-old gentleman who follows with Dr. VC Rodas in the office. He has a known history of coronary artery disease with prior bypass surgery, severe aortic stenosis with prior aVR, peripheral vascular disease with several stent placements, he also underwent a fem-fem bypass. He also has a history of hypertension, hyperlipidemia, paroxysmal atrial fibrillation, drinks at least 10 alcoholic beverages per day. He presented to the hospital with symptoms of worsening edema in his lower extremities as well as pressure in his mid epigastric and lower chest area. Patient was also having black stools. EKG on admission showed atrial fibrillation with controlled ventricular response. Chest x-ray showed pulmonary fibrotic changes, small right pleural effusion increased since prior exam with no overt heart failure. Hemoglobin on admission was 7.1 and dropped to 6.5. Stool for occult blood was positive. She underwent EGD by Dr. Vicky Willis which revealed minimal gastritis and a short segment Zhu's esophagus. He has been on IV Lasix drip. Was doing fairly well however continues to complain of lower extremity edema. his weight is stable and he is producing urine. he is scheduled to undergo colonoscopy today. Objective - Vital Signs Vital signs: Vital Signs Temp 96.8 F L 05/02/17 14:00 Pulse 91 05/02/17 14:00 Resp 18 05/02/17 14:00 BP 137/71 05/02/17 14:00 Pulse Ox 95 05/02/17 14:00 Intake & Output 05/01/17 05/02/17 05/02/17 18:59 06:59 18:59 Intake Total 1173.833 430.667 Output Total 450 Balance 723.833 430.667 Weight 119.3 kg Intake: IV 100 200 Intake, IV Titration 233.833 230.667 Amount Furosemide 250 mg In 233.833 230.667 Sodium Chloride 0.9% 225 ml @ 10 MG/HR 10 mls/hr IVP .Q24H [facility] Rx#: [id number] Oral 840 Output: Urine 450 Other: # Voids 4 - Exam PHYSICAL EXAMINATION: HEENT: [Head is atraumatic, normocephalic. Pupils equal, round. Neck is supple. There is no elevated jugular venous pressure.] HEART EXAMINATION: [Heart sounds irregular regular, S1 and S2 with a systolic murmur.] CHEST EXAMINATION:[ Lungs reveal crackles to bilateral bases. No chest wall tenderness is noted on palpation or with deep breathing.] ABDOMEN: [ Soft, nontender. Bowel sounds are heard. No organomegaly noted]. EXTREMITIES:[ 2+ peripheral pulses with evidence of 3+ peripheral edema and no calf tenderness noted]. NEUROLOGIC [patient is awake, alert and oriented x3.] . - Labs CBC & Chem 7: 05/01/17 06:00 05/02/17 06:10 Labs: Abnormal Lab Results - Last 24 Hours (Table) 05/02/17 Range/Units 06:10 Potassium 3.3 L (3.5-5.1) mmol/L Glucose 113 H (74-99) mg/dL Calcium 8.0 L (8.4-10.2) mg/dL Assessment and Plan Assessment: #1 symptoms of significant bilateral lower extremity swelling, mild congestive cardiac failure diastolic in nature acute on chronic #2 severe peripheral vascular disease with prior stenting and surgery, on Plavix and aspirin #3 known history of coronary artery disease with prior bypass surgery and stent placement #4 severe aortic stenosis with prior aortic valve replacement #5 prior history of smoking #6 EtOH abuse, patient drinks at least 10 alcoholic beverages per day #7 acute blood loss anemia, hemoglobin 7.1 on admission, 6.5 this morning, stool for occult blood positive #8 hypertension #9 hyperlipidemia #10 abnormal troponins, not consistent with acute coronary syndrome, likely secondary to anemia and oxygen supply and demand mismatch #11 hypokalemia #12 paroxysmal atrial fibrillation, on Eliquis for anticoagulation Plan: from cardiology perspective, medications are reviewed and we will continue the same. Continue to hold anticoagulation for colonoscopy today. Further recommendations to follow. G[employer]IC note has been reviewed, I agree with a documented findings and plan of care. Patient was seen and examined.
--- NOTE | 2017-05-02 15:28 | P.PN ---
Progress Note - Text Progress Note Date: 05/02/17 DATE OF SERVICE: 05/02/2017 PRESENTING COMPLAINT: Edema, shortness of breath. HISTORY OF PRESENT ILLNESS: 67-year-old male with history of cardiac catheterization in July 2015 found to have patent stent to the circumflex and LAD was found to be at occluded. Patient presented to the emergency department with complaints of shortness of breath hemoglobin was found to be 6.5 and confirms that he had been having black stools for the previous 3 weeks. Patient is on Plavix and Eliquis also found to have increasing edema the lower extremities with previous 2 weeks with ongoing affect the abdomen. Had use 4 pillows at nighttime due to the shortness of breath found to be in congestive heart failure admitted for the same. INTERVAL HISTORY: 05/02/2017: Sitting up on the edge of the bed, remains in nothing by mouth status awaiting a colonoscopy around 1:00 today. Continues to have gross edema to bilateral lower extremities remains on a Lasix drip. Has diuresed well. Over the previous 24 hours patient has had 3700 mL of urine output. Potassium low and was supplemented accordingly. Ambulatory to and from the bathroom without difficulty. Last BM 05/01/2017 05/01/2017: Sitting up at the edge of the bed, status post EGD with Dr. Willis today revealing minimal gastritis with a short segment of Zhu's esophagus. He will undergo colonoscopy tomorrow. Diet is been returned to clear liquids for the remainder of the day and then nothing by mouth after midnight. Received 2 units of blood today hemoglobin is 8.0. Potassium 3.2 received supplement. Ambulatory in the room and hallway. REVIEW OF SYSTEMS: Done for constitutional ,cardiovascular, GI, pulmonary with relevant findings as above. CURRENT MEDICATIONS Warren, amiodarone, aspirin, Lipitor, Lasix drip, gabapentin, Imdur, Lopressor, Nitrostat, Protonix, potassium chloride. PHYSICAL EXAM VITAL SIGNS: Temperature 97.5, pulse 85, respirations 14, blood pressure 120/56, oxygen saturation 96% on room air. GENERAL APPEARANCE: Sitting up on the edge of the bed, not in distress. HENT: Normocephalic, JVD not raised. Mass not palpable. Oral cavity normal, external appearance of ears and nose normal. EYES:Pupils equal. Conjunctiva normal. RESPIRATORY: Respiratory effort normal. Lungs diminished to auscultation. CARDIOVASCULAR: First and second sounds normal. Gross edema. ABDOMEN: Soft. Liver and spleen not palpable. No tenderness. No mass palpable. PSYCHIATRY: Alert and oriented x3. Mood and affect normal. INVESTIGATIONS: LABS: Potassium 3.3, calcium 8.0, Colonoscopy: Total of 6 polyps removed via polypectomy sent for biopsy along with moderate sigmoid diverticula cyst ASSESSMENT: -Acute on chronic congestive heart failure exacerbation in a patient with known coronary artery disease from diastolic dysfunction. Ejection fraction 55-60% on IV Lasix drip -Paroxysmal atrial fibrillation currently in sinus rhythm, chronically on Eliquis. -Acute gastrointestinal bleed from patient being on Eliquis and Plavix. -Gastritis and Zhu's esophagus per esophagogastroduodenoscopy. -Essential hypertension. -History of severe aortic stenosis without being replaced. 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 -Primary osteoarthritis in multiple joints bilateral. -Coronary artery disease with last cardiac cath showing chronically occluded LAD and stent to circumflex. -Hyperlipidemia. -Obesity body mass index 37. -Acute blood loss anemia, symptomatic. Hemoglobin is stable at 8.0 today. -Troponin leak from congestive heart failure, not acute coronary syndrome. -Hypokalemia likely due to decreased oral intake in preparation for scopes. PLAN: Total of 6 polyps removed via polyp ectomy sent for biopsy as well as moderate sigmoid diverticula cyst. Diet advanced per GI. Anticoagulation can be resumed in 2-3 days. Plan of care discussed with the patient at bedside we will follow closely. GROUP SALES REPRESENTATIVE statement: Patient was seen and examined by nurse practitioner Vivian Romano and all elements of the case discussed with attending Dr. Partida
[2017-05-02 15:52] LABS: Basophils # (A) 0.1 k/uL (0-0.2); Basophils % (A) 1 %; Eosinophils # (A) 0.2 k/uL (0-0.7); Eosinophils % (A) 3 %; HCT 26.7 % (39.0-53.0); HGB 8.2 gm/dL (13.0-17.5); Hypochromasia Marked; Lymphocytes # (A) 0.7 k/uL (1.0-4.8); Lymphocytes % (A) 11 %; MCH 28.7 pg (25.0-35.0); MCHC 30.5 g/dL (31.0-37.0); MCV 94.2 fL (80.0-100.0); Mean Platelet Volume 7.6; Monocytes # (A) 0.7 k/uL (0-1.0); Monocytes % (A) 11 %; Neutrophils # (A) 4.4 k/uL (1.3-7.7); Neutrophils % (A) 70 %; Platelet Count 227 k/uL (150-450); Poikilocytosis Slight; RBC 2.84 m/uL (4.30-5.90); WBC 6.3 k/uL (3.8-10.6)
[2017-05-02] MEDS: ATORVASTATIN 80 MG TAB PO SCH (21:15)
--- NOTE | 2017-05-02 22:34 | PN ---
PROGRESS NOTE DATE OF SERVICE: 05/02/2017 ATTENDING NOTE: This patient was seen and examined by me. I discussed the case with the nurse practitioner Reglacathy. This is a patient who presented with a hemoglobin of 6.5 and black stools. The patient has known coronary artery disease, has been on Plavix and Eliquis. He also presented with CHF exacerbation. Patient was put on IV Lasix drip, to which he diuresed well. EGD showed some mild gastritis and Zhu's esophagus. Colonoscopy was pending when I saw him this morning. Later the report said patient was found to have some colon polyps that were removed. Patient diuresed well on Lasix drip. Breathing much better. Daughter at the bedside. On examination, afebrile. Pulse 79, respiration 18, blood pressure 115/61, pulse ox 97% on room air. GENERAL APPEARANCE: Sitting up. Edema present. Improved air entry. INVESTIGATIONS: White count 6.3, hemoglobin 8.2. ASSESSMENT: 1. Acute on chronic congestive heart failure from underlying coronary artery disease from diastolic dysfunction. Patient had been on IV Lasix drip. 2. Paroxysmal atrial fibrillation, chronically on Eliquis. 3. Acute gastrointestinal bleed from patient being on Eliquis and Plavix showing a short segment of Zhu's esophagus. Colonoscopy unremarkable. Continue current medication and treatment plan. Per Dr. Price, anticoagulation can be resumed in the next 2 to 3 days. SAMIL / IJN: [id number] /
[2017-05-03] MEDS: NITROGLYCERIN OINT 1 INCH/GM PACKET TOPICAL SCH ×2 (06:21→08:20)
[2017-05-03 07:00] LABS: HCT 27.3 % (39.0-53.0); HGB 8.2 gm/dL (13.0-17.5); Hypochromasia Marked; MCH 28.7 pg (25.0-35.0); MCHC 30.1 g/dL (31.0-37.0); MCV 95.3 fL (80.0-100.0); Mean Platelet Volume 6.9; Platelet Count 239 k/uL (150-450); Poikilocytosis Slight; RBC 2.87 m/uL (4.30-5.90); RDW 15.8 % (11.5-15.5); WBC 8.3 k/uL (3.8-10.6)
[2017-05-03 07:06] LABS: Anion Gap 12 mmol/L; Blood Urea Nitrogen 18 mg/dL (9-20); Calcium 8.2 mg/dL (8.4-10.2); Carbon Dioxide 30 mmol/L (22-30); Chloride 101 mmol/L (98-107); Glucose 100 mg/dL (74-99); Potassium 3.7 mmol/L (3.5-5.1); Sodium 143 mmol/L (137-145)
[2017-05-03 07:28] LABS: Basophils # (M) 0.25 k/uL (0-0.2); Eosinophils # (M) 0.42 k/uL (0-0.7); Lymphocytes # (M) 1.08 k/uL (1.0-4.8); Monocytes # (M) 0.75 k/uL (0-1.0); Myelocytes # (M) 0.08 k/uL (0); Myelocytes % 1 %; Neutrophils # (M) 5.73 k/uL (1.3-7.7); Neutrophils % (M) 69 %; Nucleated Red Blood Cells 0 /100 WBC (0-0); Total Cells Counted 100
[2017-05-03 07:30] LABS: Polychromasia Present
[2017-05-03] MEDS: METOPROLOL TARTRATE 25 MG TAB PO SCH ×2 (08:17→21:22)
[2017-05-03] MEDS: PANTOPRAZOLE 40 MG/10 ML VIAL IVP SCH ×2 (08:17→21:22)
[2017-05-03] MEDS: CHOLECALCIFEROL 1,000 UNIT TAB PO SCH (08:17)
[2017-05-03] MEDS: AMIODARONE 200 MG TAB PO SCH (08:18)
[2017-05-03] MEDS: FERROUS SULFATE 325 MG TAB PO SCH (08:18)
[2017-05-03] MEDS: GABAPENTIN 400 MG CAP PO SCH ×3 (08:18→21:22)
[2017-05-03] MEDS: ASPIRIN 81 MG PO SCH (08:18)
[2017-05-03] MEDS: POTASSIUM CHLORIDE ER 20 MEQ TAB.ER PO SCH (08:18)
[2017-05-03] MEDS: ISOSORBIDE MONONITRATE ER 15 MG TAB PO SCH (08:18)
[2017-05-03] MEDS: MULTIVITAMINS, THERA 1 EACH TAB PO SCH (08:19)
[2017-05-03] MEDS: LACTATED RINGERS 1,000 ML IV SCH (08:20)
--- NOTE | 2017-05-03 12:14 | P.PN ---
Subjective Progress Note Date: 05/03/17 This is a 67-year-old gentleman who follows regularly with Dr. VC Rodas in the office. He has a known history of coronary artery disease with prior bypass surgery, severe aortic stenosis with prior aVR, peripheral vascular disease with several stent placement, he also underwent a fem fem bypass. Patient also has history of hypertension, hyperlipidemia, paroxysmal atrial fibrillation for which he is on Eliquis, Patient also drinks at least 10 alcoholic beverages per day. He presents to the hospital on this occasion with symptoms of 2-3 weeks duration of worsening edema in his lower extremities, patient also has been experiencing pressure in his mid epigastric and lower chest area. He did go to see his vascular surgeon who recommended him to follow -up with his hearing aid fitter, patient states he call the cardiology office,-year- old who answered the phone told him to follow-up with his primary care doctor. Patient also states that for the past few days he has also noticed black stools. EKG on admission here showed atrial fibrillation with a controlled ventricular response this morning's EKG continues to show A. fib with controlled ventricular response. Chest x-ray shows pulmonary fibrotic changes, small right pleural effusion increased to prior exam area no overt congestive heart failure. The pressure 102/50, heart rate in the 70s. Laboratory data was reviewed, hemoglobin on admission 7.1, 6.5 this morning. Platelet count 181. Sodium 133, potassium 3.4, BUN 22, creatinine 0.9. Troponins 0.10, 0.12, 0.11. Stool for occult blood is positive. At the time of examination this morning, he denies any chest discomfort, does have some abdominal discomfort and complains of significant pain in his right leg. 05/01/2017 Patient seen and examined today, underwent an EGD Dr. Willis today which revealed minimal gastritis and a short segment of Zhu's esophagus. He is scheduled tomorrow to undergo colonoscopy. Echocardiogram with Doppler study was performed which revealed an ejection fraction of 55-60%. He did receive 2 units of packed red blood cells, hemoglobin today is 8.0. Potassium 3.2, BUN 18 , creatinine 1.0. Patient is getting potassium replacement. Patient's weight is down 4 kg today. 05/03/2017 Patient was seen and examined this morning, feeling much better overall. Continues to be on Lasix drip.We will discontinue the Lasix drip today and put the patient on IV Lasix. We will also repeat a chest x-ray today. Discontinue aspirin.continue to hold anticoagulation. Objective - Vital Signs Vital signs: Vital Signs Temp 97.9 F 05/03/17 11:38 Pulse 84 05/03/17 11:45 Resp 18 05/03/17 11:45 BP 93/63 05/03/17 11:38 Pulse Ox 92 L 05/03/17 11:38 Intake & Output 05/02/17 05/03/17 05/03/17 18:59 06:59 18:59 Intake Total 652.667 120 Output Total 1101 Balance 652.667 -1101 120 Weight 114.4 kg Intake: IV 200 Intake, IV Titration 230.667 Amount Furosemide 250 mg In 230.667 Sodium Chloride 0.9% 225 ml @ 10 MG/HR 10 mls/hr IVP .Q24H CARLOS Rx#: [id number] Oral 222 120 Output: Urine 1100 Urine/Stool Mix 1 Other: # Voids 1 - Exam PHYSICAL EXAMINATION: HEENT: Head is atraumatic, normocephalic. Pupils equal, round. Neck is supple. There is no elevated jugular venous pressure. HEART EXAMINATION: Heart S1 and S2 irregularly irregular systolic murmur is heard CHEST EXAMINATION: Lungs clear with fine crackles to the bases. ABDOMEN: Soft, obese, positive generalized tenderness . EXTREMITIES: Doppler to 1+ peripheral pulses, 1+ edema, mostly in his bilateral feet, edema also present in the lower extremities NEUROLOGIC patient is awake, alert and oriented -3. - Labs CBC & Chem 7: 05/03/17 06:13 05/03/17 06:13 Labs: Abnormal Lab Results - Last 24 Hours (Table) 05/02/17 05/03/17 05/03/17 Range/Units 06:15 06:13 06:13 RBC 2.84 L 2.87 L (4.30-5.90) m/uL Hgb 8.2 L 8.2 L (13.0-17.5) gm/dL Hct 26.7 L 27.3 L (39.0-53.0) % MCHC 30.5 L 30.1 L (31.0-37.0) g/dL RDW 16.0 H 15.8 H (11.5-15.5) % Lymphocytes # 0.7 L (1.0-4.8) k/uL Basophils # (Manual) 0.25 H (0-0.2) k/uL Myelocytes # (Manual) 0.08 H (0) k/uL Glucose 100 H (74-99) mg/dL Calcium 8.2 L (8.4-10.2) mg/dL Assessment and Plan Plan: Assessment and plan #1 symptoms of significant bilateral lower extremity swelling, mild congestive cardiac failure diastolic in nature acute on chronic #2 severe peripheral vascular disease with prior stenting and surgery, on Plavix and aspirin #3 known history of coronary artery disease with prior bypass surgery and stent placement #4 severe aortic stenosis with prior aortic valve replacement #5 prior history of smoking #6 EtOH abuse, patient drinks at least 10 alcoholic beverages per day #7 acute blood loss anemia, hemoglobin 7.1 on admission, 6.5 this morning, stool for occult blood positive #8 hypertension #9 hyperlipidemia #10 abnormal troponins, not consistent with acute coronary syndrome, likely secondary to anemia and oxygen supply and demand mismatch #11 hypokalemia #12 paroxysmal atrial fibrillation, on Eliquis for anticoagulation Plan Echocardiogram with Doppler study was performed which revealed a normal left ventricular systolic function. Patient underwent an EGD which revealed minimal gastritis with a short segment of Zhu's esophagus. He underwent a colonoscopy yesterday with several polyps were removed. We will discontinue his aspirin today. Discontinue IV Lasix drip and start the patient on IV push Lasix. Repeat chest x-ray. Oral diuretics in the morning. DNP note has been reviewed, I agree with a documented findings and plan of care. Patient was seen and examined.
[2017-05-03] MEDS: FUROSEMIDE 250 MG in SODIUM CHLORIDE 0.9% 225 ML IVP SCH (15:14)
--- NOTE | 2017-05-03 15:14 | XR ---
EXAMINATION TYPE: XR chest 2V DATE OF EXAM: 05/03/2017 COMPARISON: 04/29/2017 HISTORY: 67-year-old male follow-up CHF TECHNIQUE: Frontal and lateral views FINDINGS: Median sternotomy wires and post-CABG clips. Heart mildly enlarged. Aorta within normal limits. Diffu se interstitial prominence persists. There is some fluid now thickening the minor fissure. Trace effu jacquelin on one side. No mary consolidation. IMPRESSION: Similar cardiomegaly and interstitial densities; in the setting of fluid overload, findings suggest m ild interstitial pulmonary edema, relatively similar. Trace effusion persists.
[2017-05-03] MEDS: ATORVASTATIN 80 MG TAB PO SCH (21:21)
[2017-05-03] MEDS: FUROSEMIDE 10 MG/ML 4 ML VIAL IV SCH (21:21)
--- NOTE | 2017-05-03 23:14 | PN ---
PROGRESS NOTE DATE OF SERVICE: 05/03/2017. HISTORY: The patient is being followed by Dr. Partida. The patient is seen in the room. Denies any chest pain or shortness of breath. No serious complaints. PHYSICAL EXAMINATION: VITAL SIGNS: Temperature 97.5, pulse 79, respirations 18, blood pressure 113/47, O2 saturation of 99% on room air. GENERAL: The patient is awake, alert and oriented, in no acute distress. HEENT: Atraumatic, normocephalic. Pupils equal and reactive to light. Extraocular movements intact. Buccal mucosa is fair. NECK: Supple. No goiter, lymphadenopathy. JVD is negative. No carotid bruit heard. LUNGS: Scattered rhonchi. No rales, rhonchi, or wheezes. HEART: Regular rate and rhythm without any murmurs or gallop rhythm. ABDOMEN: Soft, obese, nontender, nondistended. Extremities are 1+ pedal edema bilaterally. No tenderness. Homans negative. NEUROLOGIC: The patient is awake, alert, oriented x3. LAB: CBC, white blood count of 8.3, hemoglobin 8.2, hematocrit 27.3, platelet count of 239. Chemical profile, sodium 143, potassium 3.7, chloride 30, BUN 18, creatinine 1.13, glucose of 100. ASSESSMENT: 1. Acute exacerbation of diastolic congestive heart failure. 2. Paroxysmal atrial fibrillation. 3. Acute gastrointestinal bleed from Eliquis and Plavix, which are home medications. Patient is status post colonoscopy which was unremarkable. EGD is showing Zhu's esophagus. The patient is being followed by Dr. Price. PLAN: The patient's anticoagulation has been suspended secondary to GI bleed. Patient's hemoglobin has stabilized. No further evidence of bleeding. I will take the recommendation from Dr. Price for continuation of anticoagulation, possibly in the next 24 to 48 hours. The patient remains on IV Lasix drip for congestive heart failure and tolerates it well. Echocardiogram showed left ventricular systolic function to be normal. Cardiology possibly recommending changing IV Lasix drip to Lasix IV push. Chest x-ray has been ordered. Plan is to switch to oral diuretics as chest x-ray shows improvement. MMODL / IJN: [id number] /
[2017-05-04 06:50] LABS: Anion Gap 8 mmol/L; Blood Urea Nitrogen 14 mg/dL (9-20); Calcium 7.8 mg/dL (8.4-10.2); Carbon Dioxide 28 mmol/L (22-30); Chloride 100 mmol/L (98-107); Glucose 106 mg/dL (74-99); Potassium 3.2 mmol/L (3.5-5.1); Sodium 136 mmol/L (137-145)
[2017-05-04 07:11] LABS: HCT 24.4 % (39.0-53.0); HGB 7.3 gm/dL (13.0-17.5); Hypochromasia Marked; MCH 28.5 pg (25.0-35.0); MCV 94.9 fL (80.0-100.0); Mean Platelet Volume 7.8; Platelet Count 195 k/uL (150-450); RBC 2.57 m/uL (4.30-5.90); RDW 15.9 % (11.5-15.5); WBC 7.7 k/uL (3.8-10.6)
[2017-05-04 07:36] LABS: Eosinophils # (M) 0.08 k/uL (0-0.7); Metamyelocytes # (M) 0.23 k/uL (0); Metamyelocytes % 3 %; Nucleated Red Blood Cells 0 /100 WBC (0-0); Polychromasia Present
[2017-05-04 07:37] LABS: Lymphocytes # (M) 1.16 k/uL (1.0-4.8); Monocytes # (M) 0.85 k/uL (0-1.0); Neutrophils # (M) 5.54 k/uL (1.3-7.7); Neutrophils % (M) 72 %; Total Cells Counted 200
[2017-05-04] MEDS: METOPROLOL TARTRATE 25 MG TAB PO SCH ×2 (08:54→21:08)
[2017-05-04] MEDS: ISOSORBIDE MONONITRATE ER 15 MG TAB PO SCH (08:54)
[2017-05-04] MEDS: PANTOPRAZOLE 40 MG/10 ML VIAL IVP SCH ×2 (08:54→21:08)
[2017-05-04] MEDS: GABAPENTIN 400 MG CAP PO SCH ×3 (08:54→21:08)
[2017-05-04] MEDS: CHOLECALCIFEROL 1,000 UNIT TAB PO SCH (08:54)
[2017-05-04] MEDS: AMIODARONE 200 MG TAB PO SCH (08:54)
[2017-05-04] MEDS: POTASSIUM CHLORIDE ER 20 MEQ TAB.ER PO SCH (08:54)
[2017-05-04] MEDS: FUROSEMIDE 10 MG/ML 4 ML VIAL IV SCH (08:54)
[2017-05-04] MEDS: FERROUS SULFATE 325 MG TAB PO SCH (08:54)
[2017-05-04] MEDS ORDERED: POTASSIUM CHLORIDE ER 20 MEQ TAB.ER PO STA (10:43)
[2017-05-04] MEDS: MULTIVITAMINS, THERA 1 EACH TAB PO SCH (10:52)
[2017-05-04] MEDS ORDERED: METOLAZONE 2.5 MG TAB PO SCH (12:00)
[2017-05-04] MEDS: LACTATED RINGERS 1,000 ML IV SCH (12:27)
[2017-05-04] MEDS ORDERED: APIXABAN 5 MG TAB PO SCH (13:45)
--- NOTE | 2017-05-04 15:25 | PN ---
PROGRESS NOTE DATE OF SERVICE: 05/04/2017 Patient resting comfortably in bed. Daughter at bedside. Has numerous questions about the possibility of non ST elevation myocardial infarction. Patient has spoken to Dr. Hudson also and also had questions about EGD and the findings. The patient's questions were answered to satisfaction in great detail. He has been off of oxygen. VITAL SIGNS: Temperature of 97.8, pulse 76, respiration 18, blood pressure 127/64, O2 saturation 100% on room air. HEENT: Atraumatic, normocephalic. Pupils equal and reactive to light. Extraocular movements intact. Buccal mucosa is fair. Neck is supple. No goiter. No goiter or lymphadenopathy. JVD is negative. No carotid bruit heard. LUNGS: Scattered rhonchi. No rales, rhonchi, or wheezes. Heart is regular rate and rhythm without any murmurs gallop rhythm. Abdomen is soft, obese, nontender, nondistended. Bowel sounds positive. EXTREMITIES: No edema, clubbing or cyanosis. Pulses are palpable. NEUROLOGICAL EXAMINATION: Patient is awake, alert, oriented x3. No gross motor or sensory deficit. LAB: CBC: White blood count of 7.7, hemoglobin 7.3, hematocrit 24.4, and platelet count of 195. Chemical profile: Sodium 136, potassium 3.2, chloride , bicarb 28, BUN of 14, creatinine 0.9, glucose of 106. ASSESSMENT: 1. Acute exacerbation of diastolic congestive heart failure. 2. Paroxysmal atrial fibrillation. 3. Acute GI bleed from Eliquis and Plavix, status post colonoscopy and EGD. Colonoscopy showing the polyps which were removed. EGD showing Zhu's esophagus. 4. Hypokalemia. PLAN: Restart the patient on Plavix and Eliquis as per Dr. Price's recommendations. We will continue to monitor H and H closely. The patient remains on IV Lasix. Cardiology is following and planning to switch to oral diuretics. The patient is going to be supplemented with oral potassium. Will repeat electrolytes and CBC tomorrow morning. Further recommendations depending on the clinical outcome. MMODL / IJN: [id number] /
[2017-05-04 16:10] LABS: HCT 25.2 % (39.0-53.0); HGB 7.7 gm/dL (13.0-17.5); Hypochromasia Moderate; MCH 28.2 pg (25.0-35.0); MCHC 30.4 g/dL (31.0-37.0); MCV 92.9 fL (80.0-100.0); Mean Platelet Volume 7.5; Platelet Count 222 k/uL (150-450); Poikilocytosis Slight; RBC 2.72 m/uL (4.30-5.90); RDW 15.4 % (11.5-15.5); WBC 8.4 k/uL (3.8-10.6)
[2017-05-04] MEDS: CLOPIDOGREL 75 MG TAB PO SCH (16:11)
[2017-05-04] MEDS: ATORVASTATIN 80 MG TAB PO SCH (21:08)
[2017-05-04] MEDS: FUROSEMIDE 10 MG/ML 10 ML VIAL IV SCH (21:08)
--- NOTE | 2017-05-05 00:12 | PN ---
PROGRESS NOTE This is a gentleman with cardiomyopathy, atrial fibrillation, controlled rate. He also came in with significant edema of lower extremities. His breathing is easier. Denies any chest discomfort. At the time of my evaluation he still says his edema is unchanged, but weight appears to be less. I will increase the Lasix, add metolazone and see how he does. Vital signs are stable. JVD is evident. S1-S2 heard normally but distantly, ejection systolic murmur is audible. Lungs reveal diminished air entry. Abdomen and lower extremities exam is unchanged. MMODL / IJN: [id number] /
[2017-05-05 06:33] LABS: HCT 25.3 % (39.0-53.0); HGB 7.9 gm/dL (13.0-17.5); Hypochromasia Moderate; MCH 28.8 pg (25.0-35.0); MCHC 31.1 g/dL (31.0-37.0); MCV 92.7 fL (80.0-100.0); Mean Platelet Volume 7.4; Platelet Count 239 k/uL (150-450); Poikilocytosis Slight; RBC 2.73 m/uL (4.30-5.90); RDW 15.4 % (11.5-15.5); WBC 6.5 k/uL (3.8-10.6)
[2017-05-05 06:50] LABS: Anion Gap 10 mmol/L; Blood Urea Nitrogen 18 mg/dL (9-20); Calcium 8.3 mg/dL (8.4-10.2); Carbon Dioxide 30 mmol/L (22-30); Chloride 98 mmol/L (98-107); Glucose 107 mg/dL (74-99); Potassium 3.4 mmol/L (3.5-5.1); Sodium 138 mmol/L (137-145)
[2017-05-05 07:08] LABS: Basophils # (M) 0.07 k/uL (0-0.2); Lymphocytes # (M) 1.04 k/uL (1.0-4.8); Monocytes # (M) 0.91 k/uL (0-1.0); Myelocytes # (M) 0.07 k/uL (0); Myelocytes % 1 %; Neutrophils # (M) 4.36 k/uL (1.3-7.7); Neutrophils % (M) 67 %; Nucleated Red Blood Cells 0 /100 WBC (0-0); Total Cells Counted 200
[2017-05-05 07:09] LABS: Large Platelets Present
[2017-05-05] MEDS: CHOLECALCIFEROL 1,000 UNIT TAB PO SCH (09:26)
[2017-05-05] MEDS: AMIODARONE 200 MG TAB PO SCH (09:26)
[2017-05-05] MEDS: PANTOPRAZOLE 40 MG/10 ML VIAL IVP SCH ×2 (09:26→20:53)
[2017-05-05] MEDS: MULTIVITAMINS, THERA 1 EACH TAB PO SCH (09:26)
[2017-05-05] MEDS: POTASSIUM CHLORIDE ER 20 MEQ TAB.ER PO SCH ×3 (09:26→10:33)
[2017-05-05] MEDS: FUROSEMIDE 10 MG/ML 10 ML VIAL IV SCH ×2 (09:26→20:53)
[2017-05-05] MEDS: GABAPENTIN 400 MG CAP PO SCH ×3 (09:26→20:53)
[2017-05-05] MEDS: ISOSORBIDE MONONITRATE ER 15 MG TAB PO SCH (09:26)
[2017-05-05] MEDS: METOPROLOL TARTRATE 25 MG TAB PO SCH ×2 (09:26→20:53)
[2017-05-05] MEDS: FERROUS SULFATE 325 MG TAB PO SCH (09:26)
[2017-05-05] MEDS: CLOPIDOGREL 75 MG TAB PO SCH (09:26)
[2017-05-05] MEDS: LACTATED RINGERS 1,000 ML IV SCH (10:34)
[2017-05-05] MEDS: METOLAZONE 2.5 MG TAB PO SCH (12:17)
--- NOTE | 2017-05-05 15:34 | PN ---
PROGRESS NOTE Mr. Brady is breathing much easier. He lost about almost a kg. I added metolazone 2.5 mg, which will now be every day. He remains in atrial fib controlled rate. JVD is evident. S1-S2 heard normally. Irregular rate and rhythm noted. Short systolic murmur noted. Lungs reveal improved air entry. Abdomen is soft. Lower extremity edema is improved. Plan is to continue current medications. Plan for discharge tomorrow. MMODL / IJN: [id number] /
--- NOTE | 2017-05-05 20:47 | PN ---
PROGRESS NOTE DATE OF SERVICE: 05/05/2017 Patient was seen and evaluated in the room. Patient is sitting up in bed, eating lunch. Apparently he was told by Dr. Hudson that a new medication has been added and he is going to be discharged tomorrow. VITAL SIGNS: Temperature 97.7, pulse 74, respiration 18, blood pressure 119/55, oxygen saturation 99%. GENERAL EXAMINATION: Patient is awake, awake, alert, oriented x3. He is in no acute distress. HEENT: Atraumatic, normocephalic. Pupils equal and reactive to light. Extraocular movements intact. Buccal mucosa is fair. Neck is supple. No goiter or lymphadenopathy. JVD is negative. No carotid bruit heard. LUNGS: Scattered rhonchi with positive minimal crackles. Heart is irregularly irregular. Abdomen is soft, nontender, nondistended. Bowel sounds positive. EXTREMITIES: No edema, clubbing or cyanosis. Pulses are palpable. NEUROLOGICAL EXAMINATION: The patient is awake, alert, oriented x3. Cranial nerves 2- 12 grossly intact. No gross motor or sensory deficit. SKIN: Patient's skin is warm, dry and intact. LABS AND X-RAY DATA: CBC: White blood count of 6.5, hemoglobin 7.9, hematocrit 25.3, and platelet count of 239. Chemical profile: Sodium 138, potassium 3.4, chloride 98, bicarb 30, BUN 18, creatinine 1, glucose 107. ASSESSMENT: 1. Acute exacerbation, diastolic congestive heart failure. Patient has lost kilogram in water weight. Cardiology recommendations are noted. Plan is to start patient on Zaroxolyn 2.5 mg daily. Patient is already restarted on Plavix and Eliquis for anticoagulation. 2. Paroxysmal atrial fibrillation. As above, patient's Eliquis and Plavix have been restarted. They were primarily on hold because of GI bleed. The patient's hemoglobin has been stable. GI recommended restarting anticoagulation 2-3 days post colonoscopy. 3. Acute gastrointestinal bleed. Hemoglobin is stable. Patient has been started on Eliquis and Plavix. Will continue to monitor CBC and the plan is to discharge patient home tomorrow if hemoglobin stays stable. Patient's EGD was significant for some gastritis and a short segment of Zhu's esophagus. Colonoscopy showed polyps that were removed. 4. Hypokalemia. Will supplement potassium and repeat electrolytes tomorrow morning. As indicated above, patient is started on Zaroxolyn per Cardiology. Will continue that. Patient's hemoglobin is stable at 7.9. He is started back on Plavix and Eliquis. Will repeat CBC in the morning. Possible discharge home if hemoglobin remains stable. MMODL / IJN: [id number] /
[2017-05-05] MEDS: ATORVASTATIN 80 MG TAB PO SCH (20:53)
[2017-05-05] MEDS: APIXABAN 5 MG TAB PO SCH (20:54)
[2017-05-06 07:12] LABS: HCT 26.5 % (39.0-53.0); HGB 8.2 gm/dL (13.0-17.5); Hypochromasia Marked; MCH 29.1 pg (25.0-35.0); MCV 93.9 fL (80.0-100.0); Mean Platelet Volume 7.7; Platelet Count 253 k/uL (150-450); RBC 2.83 m/uL (4.30-5.90); RDW 15.7 % (11.5-15.5)
[2017-05-06 07:32] LABS: ALT 37 U/L (21-72); AST 56 U/L (17-59); Albumin 3.8 g/dL (3.5-5.0); Alkaline Phosphatase 75 U/L (38-126); Anion Gap 13 mmol/L; Blood Urea Nitrogen 19 mg/dL (9-20); Calcium 8.6 mg/dL (8.4-10.2); Carbon Dioxide 29 mmol/L (22-30); Chloride 96 mmol/L (98-107); Glucose 115 mg/dL (74-99); Potassium 3.2 mmol/L (3.5-5.1); Sodium 138 mmol/L (137-145); Total Bilirubin 0.4 mg/dL (0.2-1.3); Total Protein 6.7 g/dL (6.3-8.2)
[2017-05-06] MEDS: POTASSIUM CHLORIDE ER 20 MEQ TAB.ER PO SCH ×3 (08:38→10:18)
[2017-05-06] MEDS: APIXABAN 5 MG TAB PO SCH (08:38)
[2017-05-06] MEDS: METOPROLOL TARTRATE 25 MG TAB PO SCH (08:38)
[2017-05-06] MEDS: MULTIVITAMINS, THERA 1 EACH TAB PO SCH (08:38)
[2017-05-06] MEDS: AMIODARONE 200 MG TAB PO SCH (08:38)
[2017-05-06] MEDS: LACTATED RINGERS 1,000 ML IV SCH (08:38)
[2017-05-06] MEDS: FERROUS SULFATE 325 MG TAB PO SCH (08:38)
[2017-05-06] MEDS: PANTOPRAZOLE 40 MG/10 ML VIAL IVP SCH (08:38)
[2017-05-06] MEDS: ISOSORBIDE MONONITRATE ER 15 MG TAB PO SCH (08:38)
[2017-05-06] MEDS: CLOPIDOGREL 75 MG TAB PO SCH (08:38)
[2017-05-06] MEDS: GABAPENTIN 400 MG CAP PO SCH ×2 (08:38→16:07)
[2017-05-06] MEDS: METOLAZONE 2.5 MG TAB PO SCH (08:38)
[2017-05-06] MEDS: CHOLECALCIFEROL 1,000 UNIT TAB PO SCH (08:39)
[2017-05-06] MEDS: FUROSEMIDE 10 MG/ML 10 ML VIAL IV SCH (08:39)
[2017-05-06 09:15] VITALS: RESP 18; TEMP 98
[2017-05-06 12:21] VITALS: BP 114/91; PULSE 84
--- NOTE | 2017-05-06 12:33 | P.PN ---
Subjective Progress Note Date: 05/06/17 This is a 67-year-old gentleman who follows regularly with Dr. VC Rodas in the office. He has a known history of coronary artery disease with prior bypass surgery, severe aortic stenosis with prior aVR, peripheral vascular disease with several stent placement, he also underwent a fem fem bypass. Patient also has history of hypertension, hyperlipidemia, paroxysmal atrial fibrillation for which he is on Eliquis, Patient also drinks at least 10 alcoholic beverages per day. He presents to the hospital on this occasion with symptoms of 2-3 weeks duration of worsening edema in his lower extremities, patient also has been experiencing pressure in his mid epigastric and lower chest area. 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 Patient also states that for the past few days he has also noticed black stools. EKG on admission here showed atrial fibrillation with a controlled ventricular response this morning's EKG continues to show A. fib with controlled ventricular response. Chest x-ray shows pulmonary fibrotic changes, small right pleural effusion increased to prior exam area no overt congestive heart failure. The pressure 102/50, heart rate in the 70s. Laboratory data was reviewed, hemoglobin on admission 7.1, 6.5 this morning. Platelet count 181. Sodium 133, potassium 3.4, BUN 22, creatinine 0.9. Troponins 0.10, 0.12, 0.11. Stool for occult blood is positive. At the time of examination this morning, he denies any chest discomfort, does have some abdominal discomfort and complains of significant pain in his right leg. 05/01/2017 Patient seen and examined today, underwent an EGD Dr. Willis today which revealed minimal gastritis and a short segment of Zhu's esophagus. He is scheduled tomorrow to undergo colonoscopy. Echocardiogram with Doppler study was performed which revealed an ejection fraction of 55-60%. He did receive 2 units of packed red blood cells, hemoglobin today is 8.0. Potassium 3.2, BUN 18 , creatinine 1.0. Patient is getting potassium replacement. Patient's weight is down 4 kg today. 05/03/2017 Patient was seen and examined this morning, feeling much better overall. Continues to be on Lasix drip.We will discontinue the Lasix drip today and put the patient on IV Lasix. We will also repeat a chest x-ray today. Discontinue aspirin.continue to hold anticoagulation. 05/06/2017 Patient seen and examined this morning, weight is down 2 kg today. Continues to be on IV Lasix which we will discontinue today, start him on oral diuretics. He may be able to be discharged home from cardiology's perspective. Objective - Vital Signs Vital signs: Vital Signs Temp 98 F 05/06/17 08:38 Pulse 84 05/06/17 12:00 Resp 18 05/06/17 12:00 BP 114/91 05/06/17 12:00 Pulse Ox 100 05/06/17 12:00 Intake & Output 05/05/17 05/06/17 05/06/17 18:59 06:59 18:59 Intake Total 720 240 Balance 720 240 Weight 117.934 kg Intake: Oral 720 240 Other: # Voids 2 # Bowel Movements 0 - Exam PHYSICAL EXAMINATION: HEENT: Head is atraumatic, normocephalic. Pupils equal, round. Neck is supple. There is no elevated jugular venous pressure. HEART EXAMINATION: Heart S1 and S2 irregularly irregular systolic murmur is heard CHEST EXAMINATION: Lungs clear with fine crackles to the bases. ABDOMEN: Soft, obese, positive generalized tenderness . EXTREMITIES: Doppler to 1+ peripheral pulses, trace edema, mostly in his bilateral feet, edema also present in the lower extremities NEUROLOGIC patient is awake, alert and oriented -3. - Labs CBC & Chem 7: 05/06/17 06:59 05/06/17 06:59 Labs: Abnormal Lab Results - Last 24 Hours (Table) 05/06/17 05/06/17 Range/Units 06:59 06:59 RBC 2.83 L (4.30-5.90) m/uL Hgb 8.2 L (13.0-17.5) gm/dL Hct 26.5 L (39.0-53.0) % RDW 15.7 H (11.5-15.5) % Potassium 3.2 L (3.5-5.1) mmol/L Chloride 96 L (98-107) mmol/L Glucose 115 H (74-99) mg/dL Assessment and Plan Plan: Assessment and plan #1 symptoms of significant bilateral lower extremity swelling, mild congestive cardiac failure diastolic in nature acute on chronic #2 severe peripheral vascular disease with prior stenting and surgery, on Plavix and aspirin #3 known history of coronary artery disease with prior bypass surgery and stent placement #4 severe aortic stenosis with prior aortic valve replacement #5 prior history of smoking #6 EtOH abuse, patient drinks at least 10 alcoholic beverages per day #7 acute blood loss anemia, hemoglobin 7.1 on admission, 6.5 this morning, stool for occult blood positive #8 hypertension #9 hyperlipidemia #10 abnormal troponins, not consistent with acute coronary syndrome, likely secondary to anemia and oxygen supply and demand mismatch #11 hypokalemia #12 paroxysmal atrial fibrillation, on Eliquis for anticoagulation Plan From cardiology's perspective, we'll discontinue the IV Lasix and change to oral diuretics. Replace potassium. He may be able to be discharged home from our perspective, follow-up appointment will be made in the office post discharge. Continue oral Lasix along with Zaroxolyn. DNP note has been reviewed, I agree with a documented findings and plan of care. Patient was seen and examined.
[2017-05-06 13:05] VITALS: BMI 35.2
[2017-05-06] MEDS ORDERED: FUROSEMIDE 40 MG TAB PO SCH (16:00)
[2017-05-06] MEDS ORDERED: POTASSIUM CHLORIDE ER 20 MEQ TAB.ER PO SCH (21:00)
--- NOTE | 2017-05-06 22:03 | DS ---
DISCHARGE SUMMARY DATE OF SERVICE: 05/06/2017 FINAL DIAGNOSES: 1. Congestive heart failure, acute exacerbation, with acute on chronic diastolic dysfunction. 2. Paroxysmal atrial fibrillation. 3. Acute gastrointestinal bleed. 4. Hypokalemia. DISCHARGE DISPOSITION: The patient will be discharged in stable condition with guarded prognosis. HISTORY OF PRESENT ILLNESS: This 67-year-old gentleman with a past medical history of multiple medical problems was admitted with CHF, acute exacerbation, and treated with diuretics. The patient improved significantly. Cardiology saw the patient during the hospitalization. On exam, vitals are stable. CARDIOVASCULAR SYSTEM: S1, S2 muffled. RESPIRATORY SYSTEM: Breath sounds diminished at the bases. A few scattered rhonchi. ABDOMEN: Soft. NERVOUS SYSTEM: No focal deficit. Cardiology cleared the patient for discharge. The patient will be discharged in stable condition with guarded prognosis with the following advice and medications. 1. Diet is cardiac. 2. Activity limited until followup. 3. Fluid restriction. 4. Follow up with Dr. Price as advised. 5. Follow up with Dr. Kessler in 2 to 3 days. 6. Follow up with Cardiology as recommended. 7. Pacerone 200 mg p.o. daily. 8. Eliquis 5 mg p.o. b.i.d. Lipitor 80 mg at bedtime. 9. Vitamin D3 2000 daily. 10.Plavix 75 mg p.o. daily. 11.Iron sulfate 1 p.o. daily. 12.Lasix 40 mg p.o. b.i.d. 13.Neurontin 400 mg p.o. t.i.d. 14.Hydrocodone acetaminophen 1 tablet q.6 hours p.r.n. 15.Imdur ER 15 mg p.o. daily. 16.Zaroxolyn 2.5 mg p.o. daily. 17.Lopressor 25 mg p.o. b.i.d. 18.Multivitamins 1 p.o. daily. 19.Nitrostat 0.4 sublingually p.r.n. 20.Lynn-3 fatty acids 1 p.o. daily. 21.K-Dur 20 mEq p.o. b.i.d. 22.Closely follow with Gastroenterology in the outpatient setting. MMODL / IJN: [id number] /
== END 2017-05-06 16:49 | disposition home or self-care (01) | DRG 377 ==
LOC: EC 17:09 → 6SEL 20:21
PROVIDERS: ADMIT Hospitalist; ATTEND Hospitalist
PROC: 30233N1 Transfusion of Nonautologous Red Blood Cells into Peripheral Vein, Percutaneous Approach (ICD-10-PCS; 2017-04-29)
PROC: 0DB48ZX Excision of Esophagogastric Junction, Via Natural or Artificial Opening Endoscopic, Diagnostic (ICD-10-PCS; 2017-05-01)
PROC: 0DBN8ZX Excision of Sigmoid Colon, Via Natural or Artificial Opening Endoscopic, Diagnostic (ICD-10-PCS; 2017-05-02)
PROC: 0DBP8ZX Excision of Rectum, Via Natural or Artificial Opening Endoscopic, Diagnostic (ICD-10-PCS; 2017-05-02)
PROC: 0DBM8ZX Excision of Descending Colon, Via Natural or Artificial Opening Endoscopic, Diagnostic (ICD-10-PCS; 2017-05-02)
PROC: 0DBH8ZX Excision of Cecum, Via Natural or Artificial Opening Endoscopic, Diagnostic (ICD-10-PCS; 2017-05-02)
PROC: 0DBK8ZX Excision of Ascending Colon, Via Natural or Artificial Opening Endoscopic, Diagnostic (ICD-10-PCS; principal; 2017-05-02 14:45)
DX: K92.2 Gastrointestinal hemorrhage, unspecified (principal); I50.33 Acute on chronic diastolic (congestive) heart failure; I42.9 Cardiomyopathy, unspecified; I25.110 Atherosclerotic heart disease of native coronary artery with unstable angina pectoris; I48.0 Paroxysmal atrial fibrillation; D62 Acute posthemorrhagic anemia; D12.0 Benign neoplasm of cecum; I11.0 Hypertensive heart disease with heart failure; D12.2 Benign neoplasm of ascending colon; D12.4 Benign neoplasm of descending colon; D12.5 Benign neoplasm of sigmoid colon; K62.1 Rectal polyp; E66.9 Obesity, unspecified; E78.5 Hyperlipidemia, unspecified; E87.6 Hypokalemia; F10.10 Alcohol abuse, uncomplicated; I25.2 Old myocardial infarction; I73.9 Peripheral vascular disease, unspecified; K21.9 Gastro-esophageal reflux disease without esophagitis; K22.70 Barrett's esophagus without dysplasia; K29.70 Gastritis, unspecified, without bleeding; K57.30 Diverticulosis of large intestine without perforation or abscess without bleeding; M15.9 Polyosteoarthritis, unspecified; K30 Functional dyspepsia; R74.8 Abnormal levels of other serum enzymes; Z68.37 Body mass index [BMI] 37.0-37.9, adult; Z79.01 Long term (current) use of anticoagulants; Z79.02 Long term (current) use of antithrombotics/antiplatelets; Z79.899 Other long term (current) drug therapy; Z95.2 Presence of prosthetic heart valve; Z95.1 Presence of aortocoronary bypass graft; Z87.891 Personal history of nicotine dependence; Z85.828 Personal history of other malignant neoplasm of skin
CPT/HCPCS: 36415; 43239; 45385; 71046; 80048; 80053; 80061; 82272; 82550; 82553; 83735; 83880; 84132; 84484; 85025; 85027; 85610; 85730; 86850; 86900; 86901; 86920; 88305; 93005; 93306; 99285

== ENCOUNTER 2017-05-15 16:52 | Inpatient (IN) | payer MEDICARE ==
[2017-05-15] MEDS ORDERED: SODIUM CHLORIDE 0.9% 1,000 ML IV STA (17:11)
[2017-05-15 17:46] LABS: Anisocytosis Slight; Basophils % (A) 0 %; Eosinophils # (A) 0.1 k/uL (0-0.7); Eosinophils % (A) 1 %; Hypochromasia Moderate; Lymphocytes # (A) 1.2 k/uL (1.0-4.8); Lymphocytes % (A) 14 %; MCH 27.7 pg (25.0-35.0); MCHC 30.8 g/dL (31.0-37.0); MCV 89.8 fL (80.0-100.0); Mean Platelet Volume 7.8; Monocytes # (A) 0.8 k/uL (0-1.0); Monocytes % (A) 10 %; Neutrophils # (A) 5.8 k/uL (1.3-7.7); Neutrophils % (A) 70 %; Platelet Count 242 k/uL (150-450); RBC 2.08 m/uL (4.30-5.90); RDW 16.6 % (11.5-15.5); WBC 8.3 k/uL (3.8-10.6)
[2017-05-15 17:53] LABS: HCT 18.7 % (39.0-53.0); HGB 5.8 gm/dL (13.0-17.5)
[2017-05-15 18:02] LABS: Albumin 3.5 g/dL (3.5-5.0); Potassium 4.6 mmol/L (3.5-5.1); Total Bilirubin 0.3 mg/dL (0.2-1.3); Total Protein 6.1 g/dL (6.3-8.2)
--- NOTE | 2017-05-15 18:23 | ED ---
SOB HPI - General Chief Complaint: Shortness of Breath Stated Complaint: Chest Pain Time Seen by Provider: 05/15/17 17:04 Source: patient Mode of arrival: wheelchair Limitations: no limitations - History of Present Illness Initial Comments: 67 years old gentleman and may had a blood work done at the primary care doctor' s office he was told that hemoglobin is 6 he was advised to come to the ER he is also complaining about shortness of breath and the chest pain has a history of heart disease he has a history of CABG he also has a history of aortic valve replacement and he was in the hospital 2 weeks ago he had the EGD and colonoscopy done according to the patient and they were unremarkable chest pain ongoing for 2 days and been short-winded for 2 days his chest does not hurt worse with deep breaths. No abdominal pain no frequency urgency dysuria no symptoms of TIA or CVA - Related Data Home Medications Medication Instructions Recorded Confirmed Atorvastatin [Lipitor] 80 mg PO HS 10/06/14 05/15/17 Cholecalciferol [Vitamin D3] 2,000 unit PO DAILY 10/06/14 05/15/17 Metoprolol Tartrate [Lopressor] 25 mg PO BID 10/06/14 05/15/17 Multivit-Min/FA/Lycopene/Lut 1 tab PO DAILY 10/06/14 05/15/17 [Centrum Silver Tablet] Walker-3 Fatty Acids/Fish Oil [Fish 1 cap PO DAILY 10/06/14 05/15/17 Oil 1,000 mg Softgel] Clopidogrel [Plavix] 75 tab PO DAILY 11/14/15 05/15/17 Furosemide [Lasix] 40 mg PO BID 11/14/15 05/15/17 Amiodarone HCl [Pacerone] 200 mg PO DAILY 06/27/16 05/15/17 Apixaban [Eliquis] 5 mg PO BID 10/08/16 05/15/17 Ferrous Sulfate [Feosol] 325 mg PO BID 04/17/17 05/15/17 Hydrocodone/Acetaminophen 325 mg PO Q6HR PRN 04/17/17 05/15/17 [Hydrocodon-Acetaminophen 5-325] Isosorbide Mononitrate ER [Imdur] 15 mg PO DAILY 04/29/17 05/15/17 Spironolactone [Aldactone] 25 mg PO DAILY 05/15/17 05/15/17 Previous Rx's Medication Instructions Recorded Nitroglycerin Sl Tabs [Nitrostat] 0.4 mg SUBLINGUAL Q5M PRN #25 tab 05/14/15 Gabapentin [Neurontin] 400 mg PO TID #90 cap 10/08/16 Metolazone [Zaroxolyn] 2.5 mg PO DAILY #30 tab 05/06/17 Potassium Chloride ER [K-Dur 20] 20 meq PO BID #60 tab.er.prt 05/06/17 Allergies Allergy/AdvReac Type Severity Reaction Status Date / Time No Known Allergies Allergy Verified 05/15/17 17:40 Review of Systems ROS Statement: Those systems with pertinent positive or pertinent negative responses have been documented in the HPI. ROS Other: All systems not noted in ROS Statement are negative. Past Medical History Past Medical History: Atrial Fibrillation, Cancer, Hyperlipidemia, Hypertension , Myocardial Infarction ([place]), Osteoarthritis (OA), Vascular Disorder Additional Past Medical History / Comment(s): PVD, BACK PAIN, SWELLING IN ANKLES AND FEET. , STATES SKIN CANCER WITH RECENT TREATMENT. Last Myocardial Infarction Date:: 01-20-13 History of Any Multi-Drug Resistant Organisms: None Reported Past Surgical History: Heart Catheterization, Heart Catheterization With Stent Additional Past Surgical History / Comment(s): aortic valve replacement 2012, aortogram, pt states 2 failed stent replacement-1 to each leg, PAIN CLINIC PROCEDURES, ABD. [id number] plastiogram into, Past Anesthesia/Blood Transfusion Reactions: No Reported Reaction Date of Last Stent Placement:: 05/30/15 Past Psychological History: No Psychological Hx Reported Smoking Status: Former smoker Past Alcohol Use History: Daily Past Drug Use History: None Reported - Past Family History Mother Family Medical History: Deep Vein Thrombosis (DVT) General Exam - General Exam Comments Initial Comments: General: The patient is awake and alert, in severe distress just talking Skin: Skin is warm and dry and no rashes or lesions are noted. Eye: Pupils are equal, round and reactive to light, extra-ocular movements are intact; there is normal conjunctiva bilaterally. Ears, nose, mouth and throat: There are moist mucous membranes and no oral lesions. Neck: The neck is supple, Cardiovascular: There is irregularly irregular rhythm consistent with atrial fibrillation noticed on the EKG. Respiratory: To auscultation bilateral, decreased breath sounds bilateral Gastrointestinal: Soft, non-distended, non-tender abdomen without masses or organomegaly noted. There is no rebound or guarding present. Bowel sounds are unremarkable. Back: There is no tenderness to palpation in the midline. There is no obvious deformity. Musculoskeletal: Normal ROM, no tenderness, There is no pedal edema. There is no calf tenderness or swelling. No cords were appreciated. Neurological: CN II-XII intact, Cranial nerves III through XII are intact. There are no obvious motor or sensory deficits. Coordination appears grossly intact. Speech is normal. Psychiatric: Cooperative, appropriate mood & affect, normal judgment. Limitations: no limitations Course Vital Signs 05/15/17 05/15/17 05/15/17 16:54 17:02 17:20 Temperature 97.9 F Pulse Rate 66 67 Respiratory 24 20 20 Rate Blood Pressure 108/55 97/45 O2 Sat by Pulse 86 L 99 Oximetry 05/15/17 05/15/17 17:42 18:02 Temperature Pulse Rate 63 73 Respiratory 18 20 Rate Blood Pressure 96/50 105/52 O2 Sat by Pulse 99 100 Oximetry - Reevaluation(s) Reevaluation #1: I'm EKG is a atrial fibrillation with the junctional beats ventricular rate is 74 AL interval, QRS duration is 98 QT/QTC 338/486 review of this EKG reveals some T-wave inversion and ST depression in lead 1 and 2 also noticed T-wave inversion in aVF noticed ST depression in V4 V5 and V6 today's EKG was compared with EKG done from April 29 similar findings were noticed there today seems like is more pronounced and patient has a history of atrial fibrillation 05/15/17 18:18 Medical Decision Making - Lab Data Result diagrams: 05/15/17 17:35 05/15/17 17:35 Lab Results 05/15/17 05/15/17 05/15/17 Range/Units 17:35 17:35 17:35 WBC 8.3 (3.8-10.6) k/uL RBC 2.08 L (4.30-5.90) m/uL Hgb 5.8 L* D (13.0-17.5) gm/dL Hct 18.7 L* (39.0-53.0) % MCV 89.8 (80.0-100.0) fL MCH 27.7 (25.0-35.0) pg MCHC 30.8 L (31.0-37.0) g/dL RDW 16.6 H (11.5-15.5) % Plt Count 242 (150-450) k/uL Neutrophils % 70 % Lymphocytes % 14 % Monocytes % 10 % Eosinophils % 1 % Basophils % 0 % Neutrophils # 5.8 (1.3-7.7) k/uL Lymphocytes # 1.2 (1.0-4.8) k/uL Monocytes # 0.8 (0-1.0) k/uL Eosinophils # 0.1 (0-0.7) k/uL Basophils # 0.0 (0-0.2) k/uL Hypochromasia Moderate Anisocytosis Slight PT (9.0-12.0) sec INR (<1.2) APTT (22.0-30.0) sec Sodium 134 L (137-145) mmol/L Potassium 4.6 (3.5-5.1) mmol/L Chloride 96 L (98-107) mmol/L Carbon Dioxide 28 (22-30) mmol/L Anion Gap 10 mmol/L BUN 45 H (9-20) mg/dL Creatinine 1.48 H (0.66-1.25) mg/dL Est GFR (MDRD) Af Amer 57 (>60 ml/min/1.73 sqM) Est GFR (MDRD) Non-Af 47 (>60 ml/min/1.73 sqM) Glucose 85 (74-99) mg/dL Calcium 9.0 (8.4-10.2) mg/dL Total Bilirubin 0.3 (0.2-1.3) mg/dL AST 35 (17-59) U/L ALT 29 (21-72) U/L Alkaline Phosphatase 54 (38-126) U/L Total Creatine Kinase 135 (55-170) U/L CK-MB (CK-2) 5.1 H* (0.0-2.4) ng/mL CK-MB (CK-2) Rel Index 3.8 Troponin I 0.902 H* (0.000-0.034) ng/mL Total Protein 6.1 L (6.3-8.2) g/dL Albumin 3.5 (3.5-5.0) g/dL Blood Type Blood Type Recheck Antibody Screen Crossmatch Spec Expiration Date 03/01/18 03/01/18 Range/Units 17:35 17:35 WBC (3.8-10.6) k/uL RBC (4.30-5.90) m/uL Hgb (13.0-17.5) gm/dL Hct (39.0-53.0) % MCV (80.0-100.0) fL MCH (25.0-35.0) pg MCHC (31.0-37.0) g/dL RDW (11.5-15.5) % Plt Count (150-450) k/uL Neutrophils % % Lymphocytes % % Monocytes % % Eosinophils % % Basophils % % Neutrophils # (1.3-7.7) k/uL Lymphocytes # (1.0-4.8) k/uL Monocytes # (0-1.0) k/uL Eosinophils # (0-0.7) k/uL Basophils # (0-0.2) k/uL Hypochromasia Anisocytosis PT 11.4 (9.0-12.0) sec INR 1.2 H (<1.2) APTT 23.5 (22.0-30.0) sec Sodium (137-145) mmol/L Potassium (3.5-5.1) mmol/L Chloride (98-107) mmol/L Carbon Dioxide (22-30) mmol/L Anion Gap mmol/L BUN (9-20) mg/dL Creatinine (0.66-1.25) mg/dL Est GFR (MDRD) Af Amer (>60 ml/min/1.73 sqM) Est GFR (MDRD) Non-Af (>60 ml/min/1.73 sqM) Glucose (74-99) mg/dL Calcium (8.4-10.2) mg/dL Total Bilirubin (0.2-1.3) mg/dL AST (17-59) U/L ALT (21-72) U/L Alkaline Phosphatase (38-126) U/L Total Creatine Kinase (55-170) U/L CK-MB (CK-2) (0.0-2.4) ng/mL CK-MB (CK-2) Rel Index Troponin I (0.000-0.034) ng/mL Total Protein (6.3-8.2) g/dL Albumin (3.5-5.0) g/dL Blood Type A Positive Blood Type Recheck No Antibody Screen NEGATIVE Crossmatch See Detail Spec Expiration Date 05/18/2017 3348 Critical Care Time Critical Care Time: Yes Total Critical Care Time: 45 Critical Care Time: X-ray 7 years old male with a history of for him angina, coronary artery disease status post CABG status post aortic valve replacement in history of GI bleed came in with a hemoglobin of less than 6R CBC confirm 5.8 and noticed some EKG changes on as I did see and EKG they look to rule out more pronounced than the previous one and fortunately troponin is elevated quite elevated occult blood did notice some black tarry stool but he has been on iron him even need some mom IV PPIs considering his troponin is elevated he has been on aliquots which unfortunately we need to hold weight since his hemoglobin is so low and I suspect active bleeding is currently been ICU with the IV PPIs with only nitro and will be careful 1 drop his blood pressure too low that further aggravate his ischemia I can't can't anticoagulate him considering his low hemoglobin was started on a very small dose of beta blockers if he tolerated that be admitted to Dr. 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 Denny be consulted Disposition Clinical Impression: Myocardial infarction, Symptomatic anemia, Renal failure, GI bleed Disposition: ADMITTED IP TO THIS HOSP Condition: Fair Referrals: Patrick Kessler DO [Primary Care Provider] - 1-2 days
[2017-05-15 18:26] LABS: Creatine Kinase MB 5.1 ng/mL (0.0-2.4)
[2017-05-15 18:28] LABS: Troponin I 0.902 ng/mL (0.000-0.034)
[2017-05-15 18:33] LABS: INR 1.2 (<1.2); Partial Thromboplastin Time 23.5 sec (22.0-30.0); Prothrombin Time 11.4 sec (9.0-12.0)
[2017-05-15] MEDS ORDERED: NALOXONE 0.4 MG/ML 1 ML VIAL IV PRN (18:47)
[2017-05-15] MEDS ORDERED: MORPHINE SULFATE 4 MG/ML SYRINGE IV PRN (18:47)
[2017-05-15] MEDS ORDERED: HYDROcodone/APAP 5-325MG 1 EACH TAB PO PRN (18:54)
[2017-05-15] MEDS ORDERED: NITROGLYCERIN SL TABS 0.4 MG TAB SUBLINGUAL PRN (18:54)
[2017-05-15] MEDS ORDERED: PANTOPRAZOLE 40 MG/10 ML VIAL IVP STA (18:55)
--- NOTE | 2017-05-15 19:21 | XR ---
EXAMINATION TYPE: XR chest 2V DATE OF EXAM: 05/15/2017 COMPARISON: 05/03/2017 HISTORY: Short of breath TECHNIQUE: Frontal and lateral views of the chest are obtained. FINDINGS: There is some coarsening of interstitial markings. There is no gross heart failure. There are sternal wires. There are chest leads. I see no definite pleural effusion. IMPRESSION: Pulmonary fibrotic changes. No heart failure. No significant change compared to old exam .
[2017-05-15 19:43] LABS: Glucose,Whole Blood 98 mg/dL (75-99)
[2017-05-15] MEDS ORDERED: FERROUS SULFATE 325 MG TAB PO SCH (21:00)
[2017-05-15] MEDS ORDERED: FUROSEMIDE 40 MG TAB PO SCH (21:00)
[2017-05-15] MEDS: POTASSIUM CHLORIDE ER 20 MEQ TAB.ER PO SCH (21:17)
[2017-05-15] MEDS: GABAPENTIN 400 MG CAP PO SCH (21:17)
[2017-05-15] MEDS: SENNOSIDES 8.6 MG TAB PO SCH (21:18)
[2017-05-15] MEDS: ATORVASTATIN 80 MG TAB PO SCH (21:18)
[2017-05-15] MEDS: METOPROLOL TARTRATE 25 MG TAB PO SCH (21:18)
--- NOTE | 2017-05-15 23:51 | HP ---
HISTORY AND PHYSICAL DATE OF ADMISSION: 05/15/2017 PRESENTING COMPLAINT: Dizzy, lightheaded. HISTORY OF PRESENTING COMPLAINT: This is a 67-year-old patient who was here in the hospital on April 30, 2017 and went home on May 06. The patient follows with Dr. Kessler. Chronic stable medical conditions include hypertension, aortic valve replacement, peripheral arterial disease, osteoarthritis, coronary artery disease, atrial fibrillation, hyperlipidemia. The patient has had a cardiac catheterization in July of 2015 and found to have a patent stent to the circumflex and the LAD was chronically occluded. Patient was drinking up to 6-7 beers a day. The patient then was having black stools and was on Plavix and Eliquis and also was found to be in congestive heart failure. The patient did undergo colonoscopy and some polyps were removed. There was moderate sigmoid diverticulosis that was found. The patient also was found to have minimal gastritis and a short- segment of Zhu's esophagus per EGD. The patient was resumed on Eliquis and Plavix when patient was discharged. The patient states he continues to have black stools since then and today. Presented with a hemoglobin of 5.8. The patient's hemoglobin was 8.2 when he was discharged. Also patient today is found to have a BUN and creatinine of 45 and 1.48, whereas it was 19 and 0.94 when he was discharged. The patient has been feeling dizzy, lightheaded and that is when he decided to come in. REVIEW OF SYSTEMS: CONSTITUTIONAL: Weak, tired. HEENT: None. RESPIRATORY: As above. CARDIOVASCULAR: No chest pain. GASTROINTESTINAL: Upper abdominal discomfort. GENITOURINARY: None. MUSCULOSKELETAL: Arthritic pain in joints. DERMATOLOGICAL: None. HEMATOLOGICAL: As above. LYMPHATICS: None. PSYCHIATRY: None. NEUROLOGICAL: None. PAST HISTORY: Hypertension, aortic stenosis, valve replaced, peripheral artery disease, osteoarthritis, coronary artery disease, hyperlipidemia, atrial fibrillation. PAST SURGICAL HISTORY: Cardiac catheterization with stent, aortic valve replaced in 2012, 2 failed stent placement, pain clinic procedure. SOCIAL HISTORY: The patient smoked for 50 years, stopped in 2014, was drinking close to 6-7 beers up until about a month ago. FAMILY HISTORY: DVT. HOME MEDICATIONS: 1. [place] 5, 1 tablet every 6 hours p.r.n. 2. Aldactone 25 mg a day. 3. Nitrostat 0.4 sublingual q.5 p.r.n. 4. Lipitor 80 mg q.h.s. 5. Potassium 20 mEq b.i.d. 6. Fish oil. 7. Centrum Silver 1 tablet p.o. daily. 8. Lopressor 25 p.o. b.i.d. 9. Zaroxolyn 2.5 p.o. daily. 10.Imdur ER 50 mg p.o. daily. 11.Neurontin 400 mg p.o. t.i.d. 12.Lasix 40 mg b.i.d. 13.Iron 325 b.i.d. 14.Plavix 75 mg a day. 15.Vitamin D3 2000 units p.o. daily. 16.Eliquis 5 mg b.i.d. 17.Amiodarone 200 mg p.o. daily. EKG shows atrial fibrillation, rate controlled. ASSESSMENT: 1. Acute blood loss anemia, likely from gastrointestinal tract in a patient who has had a recent colonoscopy and esophagogastroduodenoscopy. Probably the patient could be bleeding from the small-bowel, given that the patient is on Plavix and Eliquis. 2. Chronic congestive heart failure from diastolic dysfunction. Ejection fraction 55%- 60% from underlying coronary artery disease. 3. Persistent atrial fibrillation. Patient chronically on Eliquis. 4. Essential hypertension. 5. Aortic valve replacement for severe aortic stenosis. 6. Peripheral arterial disease. 7. Primary osteoarthritis in multiple joints bilaterally. 8. Coronary artery disease with the last cardiac catheterization showing chronically occluded left anterior descending and stent to the circumflex patent. 9. Hyperlipidemia. 10.Obesity; BMI 37. 11.Acute blood loss anemia, symptomatic. Patient did order 2 units of blood. 12.Troponin leak, likely from hemodynamic mismatch. The patient has no evidence of acute coronary syndrome. 13.Acute renal failure, likely prerenal from patient being on diuretics. PLAN: Patient's Eliquis and Plavix have been held. Patient has been ordered 2 units. Other home medications resumed. Consultation to Cardiology and GI have been done. Will temporarily hold off patient's diuretics in view of the acute renal failure. Care was discussed with the patient. Questions were answered. MMODL / IJN: [id number] /
[2017-05-16 02:36] LABS: Anisocytosis Slight; Basophils % (A) 1 %; Eosinophils # (A) 0.1 k/uL (0-0.7); Eosinophils % (A) 2 %; HCT 22.9 % (39.0-53.0); HGB 7.2 gm/dL (13.0-17.5); Hypochromasia Moderate; Lymphocytes # (A) 1.1 k/uL (1.0-4.8); Lymphocytes % (A) 14 %; MCH 28.2 pg (25.0-35.0); MCHC 31.2 g/dL (31.0-37.0); MCV 90.2 fL (80.0-100.0); Mean Platelet Volume 7.6; Monocytes # (A) 0.8 k/uL (0-1.0); Monocytes % (A) 11 %; Neutrophils # (A) 5.2 k/uL (1.3-7.7); Neutrophils % (A) 67 %; Platelet Count 225 k/uL (150-450); Poikilocytosis Slight; RBC 2.54 m/uL (4.30-5.90); RDW 17.2 % (11.5-15.5); WBC 7.7 k/uL (3.8-10.6)
[2017-05-16 02:47] LABS: Anion Gap 8 mmol/L; Blood Urea Nitrogen 40 mg/dL (9-20); Calcium 8.9 mg/dL (8.4-10.2); Carbon Dioxide 30 mmol/L (22-30); Chloride 97 mmol/L (98-107); Glucose 96 mg/dL (74-99); Phosphorus 4.1 mg/dL (2.5-4.5); Potassium 3.8 mmol/L (3.5-5.1); Sodium 135 mmol/L (137-145)
[2017-05-16] MEDS: GABAPENTIN 400 MG CAP PO SCH ×3 (08:26→21:11)
[2017-05-16] MEDS: AMIODARONE 200 MG TAB PO SCH (08:26)
[2017-05-16] MEDS: PANTOPRAZOLE 40 MG/10 ML VIAL IVP SCH (08:27)
[2017-05-16] MEDS: POTASSIUM CHLORIDE ER 20 MEQ TAB.ER PO SCH ×2 (08:27→21:11)
[2017-05-16] MEDS: METOPROLOL TARTRATE 25 MG TAB PO SCH ×2 (08:27→21:12)
[2017-05-16] MEDS: ISOSORBIDE MONONITRATE ER 15 MG TAB PO SCH (08:27)
[2017-05-16] MEDS ORDERED: NON-FORMULARY DRUG (Omega-3 Fatty Acids/Fish Oil [Fish Oil 1,000 Mg Softgel] 1 CAP) PO SCH (09:00)
[2017-05-16] MEDS ORDERED: METOLAZONE 2.5 MG TAB PO SCH (09:00)
[2017-05-16] MEDS ORDERED: SPIRONOLACTONE 25 MG TAB PO SCH (09:00)
[2017-05-16] MEDS ORDERED: POTASSIUM CHLORIDE ER 20 MEQ TAB.ER PO STA (10:01)
--- NOTE | 2017-05-16 10:06 | P.CNPUL ---
History of Present Illness Consult date: 05/16/17 Reason for consult: dyspnea, chest pain, other Chief complaint: Shortness of breath, chest pain, GI bleed/anemia History of present illness: Consult dated 05/16/2017 This is a 67-year-old male with a history of anemia. He apparently had some blood work in his doctor's office. His hemoglobin was found to be about 6. In addition, he probably had some shortness of breath and chest pain. He does have history of heart disease and apparently has a previous history of bypass grafting. Also aortic valve replacement. He apparently was in the hospital 2 weeks ago for EGD and colonoscopy. Apparently they were unremarkable. The shortness of breath and chest pain apparently been going on for a couple days prior to admission. No fever no chills. No GI or complaints. The patient here in the emergency room was found to have a hemoglobin of 5.8 and for that reason the patient was admitted to the unit. The patient has received 2 units of packed red blood cells on May 15. He was admitted on May 15. He is currently receiving O2 at 1 L by nasal cannula and an IV of saline at 100 mL an hour. He's never had this problem before with GI bleeding in his primary physician is Dr. Kessler. Review of Systems A 12 point review of system is positive for shortness of breath and chest pain both of which have improved. The patient denies any pain. States he is not having any additional bleeding. She patient denies any hemoptysis or hematemesis and denies any melena or hematochezia. Past Medical History Past Medical History: Atrial Fibrillation, Cancer, Hyperlipidemia, Hypertension , Myocardial Infarction ([place]), Osteoarthritis (OA), Vascular Disorder Additional Past Medical History / Comment(s): PVD, BACK PAIN, SWELLING IN ANKLES AND FEET. , STATES SKIN CANCER WITH RECENT TREATMENT. Last Myocardial Infarction Date:: 01-20-13 History of Any Multi-Drug Resistant Organisms: None Reported Past Surgical History: Heart Catheterization, Heart Catheterization With Stent Additional Past Surgical History / Comment(s): aortic valve replacement 2012, aortogram, pt states 2 failed stent replacement-1 to each leg, PAIN CLINIC PROCEDURES, ABD. [id number] plastiogram into, Past Anesthesia/Blood Transfusion Reactions: No Reported Reaction Date of Last Stent Placement:: 05/30/15 Past Psychological History: No Psychological Hx Reported Smoking Status: Former smoker Past Alcohol Use History: Daily Additional Past Alcohol Use History / Comment(s): quit smoking October 2014. smoked for >50 yrs, STATES DRINKS 6 -7 BEERS DAILY Past Drug Use History: None Reported - Past Family History Mother Family Medical History: Deep Vein Thrombosis (DVT) Medications and Allergies Home Medications Medication Instructions Recorded Confirmed Type Atorvastatin [Lipitor] 80 mg PO HS 10/06/14 05/15/17 History Cholecalciferol [Vitamin D3] 2,000 unit PO DAILY 10/06/14 05/15/17 History Metoprolol Tartrate [Lopressor] 25 mg PO BID 10/06/14 05/15/17 History Multivit-Min/FA/Lycopene/Lut 1 tab PO DAILY 10/06/14 05/15/17 History [Centrum Silver Tablet] [place]-3 Fatty Acids/Fish Oil [Fish 1 cap PO DAILY 10/06/14 05/15/17 History Oil 1,000 mg Softgel] Nitroglycerin Sl Tabs [Nitrostat] 0.4 mg SUBLINGUAL Q5M PRN #25 tab 05/14/1504/03 Rx Clopidogrel [Plavix] 75 tab PO DAILY 11/14/15 05/15/17 History Furosemide [Lasix] 40 mg PO BID 11/14/15 05/15/17 History Amiodarone HCl [Pacerone] 200 mg PO DAILY 06/27/16 05/15/17 History Apixaban [Eliquis] 5 mg PO BID 10/08/16 05/15/17 History Gabapentin [Neurontin] 400 mg PO TID #90 cap 10/08/16 05/15/17 Rx Ferrous Sulfate [Feosol] 325 mg PO BID 04/17/17 05/15/17 History Hydrocodone/Acetaminophen 1 tab PO Q6HR PRN 04/17/17 05/15/17 History [Hydrocodon-Acetaminophen 5-325] Isosorbide Mononitrate ER [Imdur] 15 mg PO DAILY 04/29/17 05/15/17 History Metolazone [Zaroxolyn] 2.5 mg PO DAILY #30 tab 05/06/17 05/15/17 Rx Potassium Chloride ER [K-Dur 20] 20 meq PO BID #60 tab.er.prt 05/06/17 05/15/17 Rx Spironolactone [Aldactone] 25 mg PO DAILY 05/15/17 05/15/17 History Allergies Allergy/AdvReac Type Severity Reaction Status Date / Time No Known Allergies Allergy Verified 05/15/17 17:40 Physical Exam Osteopathic Statement: *. No significant issues noted on an osteopathic structural exam other than those noted in the History and Physical/Consult. Vitals: Vital Signs Temp Pulse Pulse Resp BP BP Pulse Ox 05/16/17 08:00 97.6 F 89 11 L 124/43 97 05/16/17 07:00 75 17 121/43 97 05/16/17 06:00 74 13 131/65 96 05/16/17 05:00 70 14 99/39 98 05/16/17 04:00 97.7 F 59 L 13 90/43 92 L 05/16/17 03:00 65 12 105/62 95 05/16/17 02:30 64 11 L 112/42 94 L 05/16/17 02:00 66 14 110/47 93 L 05/16/17 01:30 66 15 103/47 96 05/16/17 01:26 97.9 F 68 20 100/44 05/16/17 01:00 63 16 97/41 92 L 05/16/17 00:30 97.9 F 68 20 100/44 96 05/16/17 00:00 65 33 H 105/52 98 05/15/17 23:30 63 11 L 86/35 98 05/15/17 23:11 60 22 80/41 99 05/15/17 23:05 97.9 F 69 14 86/44 05/15/17 23:00 61 16 87/50 99 05/15/17 22:35 97.9 F 67 14 90/50 05/15/17 22:30 58 L 11 L 93/37 99 05/15/17 22:25 98.1 F 64 18 93/37 100 05/15/17 22:00 65 13 108/48 97 05/15/17 21:52 97.7 F 83 16 106/48 99 05/15/17 21:30 73 28 H 111/52 100 05/15/17 21:00 66 11 L 87/43 100 05/15/17 20:30 67 22 98/74 98 05/15/17 20:00 98.3 F 64 13 112/53 98 05/15/17 19:45 97.5 F L 72 21 97/59 05/15/17 19:40 74 13 100 05/15/17 19:33 97.5 F L 70 14 112/53 05/15/17 19:24 98.0 F 66 20 106/53 100 05/15/17 19:00 64 20 108/53 99 05/15/17 18:02 73 20 105/52 100 05/15/17 17:42 63 18 96/50 99 05/15/17 17:20 20 05/15/17 17:02 67 20 97/45 99 05/15/17 16:54 97.9 F 66 24 108/55 86 L Intake and Output 05/15/17 05/16/17 05/16/17 22:59 06:59 14:59 Intake Total 930 960 200 Output Total 850 1150 600 Balance 80 -190 -400 Intake: IV 620 650 200 PRBC 620 0 Sodium Chloride 0.9% 1, 650 200 000 ml @ 100 mls/hr IV . Q10H STA Rx#:[id number] Blood Product 310 310 Rc As-1 Unit 0 310 [id number] Rc As-3 Unit 310 [id number] Output: Urine 850 1150 600 Other: # Voids 1 Weight 126 kg 126 kg No acute distress, oriented 3. Patient is pale, wearing nasal O2. HEENT examination is grossly unremarkable. Mucous membranes are moist. No oral lesions. Neck supple. Full range of motion. No adenopathy thyromegaly or neck vein distention. Cardiovascular examination reveals regular rhythm rate. S1-S2 normal. No S3 or S4. No discernible murmur noted. Lungs reveal clear breath sounds. Her sounds are equal bilaterally. No adventitious lung sounds including wheezes rhonchi or crackles. Abdomen soft bowel sounds are heard. No masses or tenderness. Extremities are intact. No cyanosis clubbing or edema. Skin is without rash or lesion. Neurologic examination is brief but nonfocal. Results - Laboratory Findings CBC and BMP: 05/16/17 02:15 05/16/17 02:15 PT/INR, D-dimer PT 11.4 sec (9.0-12.0) 05/15/17 17:35 INR 1.2 (<1.2) H 05/15/17 17:35 Abnormal lab findings: Abnormal Labs 05/15/17 05/15/17 05/15/17 17:35 17:35 17:35 RBC 2.08 L Hgb 5.8 L* D Hct 18.7 L* MCHC 30.8 L RDW 16.6 H INR Sodium 134 L Chloride 96 L BUN 45 H Creatinine 1.48 H CK-MB (CK-2) 5.1 H* Troponin I 0.902 H* Total Protein 6.1 L Crossmatch 05/15/17 05/15/17 05/16/17 17:35 17:35 02:15 RBC Hgb Hct MCHC RDW INR 1.2 H Sodium 135 L Chloride 97 L BUN 40 H Creatinine 1.40 H CK-MB (CK-2) Troponin I Total Protein Crossmatch See Detail 05/16/17 05/16/17 02:15 02:15 RBC 2.54 L Hgb 7.2 L Hct 22.9 L MCHC RDW 17.2 H INR Sodium Chloride BUN Creatinine CK-MB (CK-2) Troponin I 1.200 H* Total Protein Crossmatch - Diagnostic Findings Chest x-ray: image reviewed (Labs x-rays a medications are reviewed.) Assessment and Plan Assessment: Assessment Probable GI bleed with anemia, although source not clear. History of atrial fibrillation History of hyperlipidemia History of hypertension Previous history of myocardial infarction History of chronic back pain Peripheral vascular disease Status post aortic valve replacement History of skin cancer Plan: Plan dated 05/16/2017 The patient seems be relatively stable. The patient's nasal O2 can be discontinued. The patient did receive 2 units of PRBCs. Additional recommendations and suggestions are forthcoming. We'll await for GI input. Medications labs and x-rays are all reviewed. Time with Patient: Greater than 30
[2017-05-16 10:13] LABS: Anisocytosis Slight; Basophils % (A) 0 %; Eosinophils # (A) 0.1 k/uL (0-0.7); Eosinophils % (A) 2 %; HCT 21.8 % (39.0-53.0); Hypochromasia Moderate; Lymphocytes # (A) 0.8 k/uL (1.0-4.8); Lymphocytes % (A) 11 %; MCH 27.7 pg (25.0-35.0); MCHC 30.9 g/dL (31.0-37.0); MCV 89.9 fL (80.0-100.0); Mean Platelet Volume 7.9; Monocytes # (A) 0.7 k/uL (0-1.0); Monocytes % (A) 10 %; Neutrophils # (A) 5.2 k/uL (1.3-7.7); Neutrophils % (A) 72 %; Platelet Count 213 k/uL (150-450); Poikilocytosis Moderate; RBC 2.43 m/uL (4.30-5.90); RDW 17.3 % (11.5-15.5); WBC 7.2 k/uL (3.8-10.6)
[2017-05-16 10:15] LABS: HGB 6.7 gm/dL (13.0-17.5)
[2017-05-16] MEDS: MULTIVITAMINS, THERA 1 EACH TAB PO SCH (11:21)
[2017-05-16] MEDS: CHOLECALCIFEROL 1,000 UNIT TAB PO SCH (11:21)
--- NOTE | 2017-05-16 11:28 | CONS ---
CONSULTATION This is a 67-year-old gentleman who sees Dr. Libby Rodas in the outpatient setting. He was discharged from the hospital after presenting with a GI bleed and had a colonoscopy and a polypectomy performed. He was advised to be resumed with anticoagulation, which was done on the . However, patient comes back in with chest pain this time, shortness of breath, feeling weak, tired, fatigued, with lack of energy and was found to have a hemoglobin of 5.7 without any new melenic stool or any mary red blood in the stool. However, he has chronic atrial fibrillation, has been on Eliquis 5 mg b.i.d. and Plavix. He has received 2 units of blood. Hemoglobin is now 7.2. He has history of aortocoronary bypass surgery and aortic valve replacement in 2013. He is resting comfortably, but his presentation with chest discomfort suggests that this could be an ischemia precipitated by low hemoglobin. However, he is asymptomatic at the time of my evaluation. PAST MEDICAL HISTORY: 1. Recurrent GI bleed with a recent colonoscopy. 2. Hypertension. 3. Hyperlipidemia. 4. Chronic atrial fibrillation. 5. CAD with prior bypass surgery and aortic valve replacement in 2013. MEDICATIONS: At home include Eliquis 5 mg b.i.d., Plavix 75 mg daily, Zaroxolyn 2.5 mg daily, potassium 20 mg daily. Nitroglycerin tablets p.r.n. Imdur 15 mg daily, Aldactone 25 mg daily, amiodarone 200 mg daily. LABORATORY DATA: Suggests that his troponin was 0.9 and went up to 1.2. His potassium is 3.8 and creatinine is 1.4. Hemoglobin has improved to 7.2. IMPRESSION: 1. Probable recurrent GI bleed with a severe anemia and hemoglobin of 5.7. 2. Coronary artery disease status post prior aortocoronary bypass surgery and aortic valve replacement in 2013. 3. Chronic atrial fibrillation. 4. History of alcoholism in the past. 5. History of recent hospitalization with gastrointestinal bleed. 6. Non-ST elevation myocardial infarction probably precipitated by severe anemia. RECOMMENDATION: I am recommending that we are continue his current medications. Will get additional troponin levels. Await GI input. I would recommend that we completely discontinue his anticoagulation and he should not receive either Plavix or Eliquis at all. I discussed this with the patient. We will check additional troponins, seek GI input and then if he is stable, move him to telemetry. Patient is asymptomatic at the time of my evaluation. AVIVA / PRICE: [id number] /
--- NOTE | 2017-05-16 11:58 | P.CONS ---
History of Present Illness - Reason for Consult Consult date: 05/16/17 Anemia Requesting physician: Jin Partida - History of Present Illness 67-year-old gentleman patient Dr. Kessler with a past mental history of EtOH abuse, atrial fibrillation, skin carcinoma, hypertension, NM, hyperlipidemia, CABG/AVR 2013 maintained on Eliquis and Plavix, and PVD. Patient was recently hospitalized a few weeks ago with chest pain new-onset of black-colored bowel movements severe symptomatic anemia. He underwent EGD 05/01 followed by colonoscopy on 05/02 with findings of minimal gastritis short segment of Zhu' s esophagus. Colonoscopy moderate sigmoid diverticulosis with polypectomy 6; cecum, ascending colon, descending colon, sigmoid, and rectum. Biopsies consistent with tubular adenomas and EGD biopsies no evidence of dysplasia or malignancy metaplasia consistent with Zhu's change. Admission hemoglobin 2 weeks ago was as low as 6.5 he received 2 units of blood and discharge hemoglobin was 8.2. He was admitted yesterday with a hemoglobin of 5.8 but denies overt bleeding such as hematemesis hematochezia melena. He has been on oral iron and states his bowel movements are darker in color but attributes the darker color to iron. Some mild lower abdominal discomfort nothing severe. Denies fever or chills. He's received 2 additional units of blood and current hemoglobin is 6.7. Hemoccult stool positive. INR 1.2. BUN 45. Creatinine 1.4. Troponin 0.9-1.2. Review of Systems Constitutional: Denies fever, chills, sweats, weight gain, or loss. HEENT: Negative for migraines, blurred vision or loss, earaches, drainage, tinnitus, oral mucosal lesions, dysphagia, or odynophagia. Cardiac: Atrial fibrillation. Hyperlipidemia. Hypertension. NM. PVD. CAD. AVR. CABG. Negative for chest pain, arrhythmias, or palpitation. Respiratory: Negative for shortness of breath, hemoptysis, cough, or sputum production. Gastrointestinal: See HPI for pertinent findings. Genitourinary: Negative for hematuria, urgency, frequency, polyuria, dysuria, or penile discharge. Musculoskeletal: Negative for muscle aches, swelling, arthritis, and arthralgias. Neurologic: Negative for stroke or TIA. Endocrine: Negative for thyroid problems. Skin: Negative for rash or itching. Psychiatric: Negative history for depression and anxiety Past Medical History Past Medical History: Atrial Fibrillation, Cancer, Hyperlipidemia, Hypertension , Myocardial Infarction ([place]), Osteoarthritis (OA), Vascular Disorder Additional Past Medical History / Comment(s): PVD, BACK PAIN, SWELLING IN ANKLES AND FEET. , STATES SKIN CANCER WITH RECENT TREATMENT. Last Myocardial Infarction Date:: 01-20-13 History of Any Multi-Drug Resistant Organisms: None Reported Past Surgical History: Heart Catheterization, Heart Catheterization With Stent Additional Past Surgical History / Comment(s): aortic valve replacement 2013, aortogram, pt states 2 failed stent replacement-1 to each leg, PAIN CLINIC PROCEDURES, ABD. [id number] plastiogram into, Past Anesthesia/Blood Transfusion Reactions: No Reported Reaction Date of Last Stent Placement:: 05/30/15 Past Psychological History: No Psychological Hx Reported Smoking Status: Former smoker Past Alcohol Use History: Daily Additional Past Alcohol Use History / Comment(s): quit smoking October 2014. smoked for >50 yrs, STATES DRINKS 6 -7 BEERS DAILY Past Drug Use History: None Reported - Past Family History Mother Family Medical History: Deep Vein Thrombosis (DVT) Medications and Allergies Home Medications Medication Instructions Recorded Confirmed Type Atorvastatin [Lipitor] 80 mg PO HS 10/06/14 05/15/17 History Cholecalciferol [Vitamin D3] 2,000 unit PO DAILY 10/06/14 05/15/17 History Metoprolol Tartrate [Lopressor] 25 mg PO BID 10/06/14 05/15/17 History Multivit-Min/FA/Lycopene/Lut 1 tab PO DAILY 10/06/14 05/15/17 History [Centrum Silver Tablet] [place]-3 Fatty Acids/Fish Oil [Fish 1 cap PO DAILY 10/06/14 05/15/17 History Oil 1,000 mg Softgel] Nitroglycerin Sl Tabs [Nitrostat] 0.4 mg SUBLINGUAL Q5M PRN #25 tab 05/14/1504/03 Rx Clopidogrel [Plavix] 75 tab PO DAILY 11/14/15 05/15/17 History Furosemide [Lasix] 40 mg PO BID 11/14/15 05/15/17 History Amiodarone HCl [Pacerone] 200 mg PO DAILY 06/27/16 05/15/17 History Apixaban [Eliquis] 5 mg PO BID 10/08/16 05/15/17 History Gabapentin [Neurontin] 400 mg PO TID #90 cap 10/08/16 05/15/17 Rx Ferrous Sulfate [Feosol] 325 mg PO BID 04/17/17 05/15/17 History Hydrocodone/Acetaminophen 1 tab PO Q6HR PRN 04/17/17 05/15/17 History [Hydrocodon-Acetaminophen 5-325] Isosorbide Mononitrate ER [Imdur] 15 mg PO DAILY 04/29/17 05/15/17 History Metolazone [Zaroxolyn] 2.5 mg PO DAILY #30 tab 05/06/17 05/15/17 Rx Potassium Chloride ER [K-Dur 20] 20 meq PO BID #60 tab.er.prt 05/06/17 05/15/17 Rx Spironolactone [Aldactone] 25 mg PO DAILY 05/15/17 05/15/17 History Allergies Allergy/AdvReac Type Severity Reaction Status Date / Time No Known Allergies Allergy Verified 05/15/17 17:40 Physical Exam Vitals: Vital Signs Temp Pulse Pulse Resp BP BP Pulse Ox 05/16/17 11:05 98.1 F 66 9 L 84/39 97 05/16/17 10:00 75 27 H 86/45 97 05/16/17 09:00 69 12 108/42 98 05/16/17 08:00 97.6 F 89 11 L 124/43 97 05/16/17 07:00 75 17 121/43 97 05/16/17 06:00 74 13 131/65 96 05/16/17 05:00 70 14 99/39 98 05/16/17 04:00 97.7 F 59 L 13 90/43 92 L 05/16/17 03:00 65 12 105/62 95 05/16/17 02:30 64 11 L 112/42 94 L 05/16/17 02:00 66 14 110/47 93 L 05/16/17 01:30 66 15 103/47 96 05/16/17 01:26 97.9 F 68 20 100/44 05/16/17 01:00 63 16 97/41 92 L 05/16/17 00:30 97.9 F 68 20 100/44 96 05/16/17 00:00 65 33 H 105/52 98 03/01/18 23:30 63 11 L 86/35 98 05/15/17 23:11 60 22 80/41 99 05/15/17 23:05 97.9 F 69 14 86/44 05/15/17 23:00 61 16 87/50 99 05/15/17 22:35 97.9 F 67 14 90/50 05/15/17 22:30 58 L 11 L 93/37 99 05/15/17 22:25 98.1 F 64 18 93/37 100 05/15/17 22:00 65 13 108/48 97 05/15/17 21:52 97.7 F 83 16 106/48 99 05/15/17 21:30 73 28 H 111/52 100 05/15/17 21:00 66 11 L 87/43 100 05/15/17 20:30 67 22 98/74 98 05/15/17 20:00 98.3 F 64 13 112/53 98 05/15/17 19:45 97.5 F L 72 21 97/59 05/15/17 19:40 74 13 100 05/15/17 19:33 97.5 F L 70 14 112/53 05/15/17 19:24 98.0 F 66 20 106/53 100 05/15/17 19:00 64 20 108/53 99 05/15/17 18:02 73 20 105/52 100 05/15/17 17:42 63 18 96/50 99 05/15/17 17:20 20 05/15/17 17:02 67 20 97/45 99 05/15/17 16:54 97.9 F 66 24 108/55 86 L Intake and Output 05/15/17 05/16/17 05/16/17 22:59 06:59 14:59 Intake Total 930 960 400 Output Total 850 1150 600 Balance 80 -190 -200 Intake: IV 620 650 400 PRBC 620 0 Sodium Chloride 0.9% 1, 650 400 000 ml @ 100 mls/hr IV . Q10H STA Rx#:[id number] Blood Product 310 310 0 Rc As-1 Unit 0 310 [id number] Rc As-1 Unit 0 [id number] Rc As-3 Unit 310 [id number] Output: Urine 850 1150 600 Other: Voiding Method Urinal # Voids 1 Weight 126 kg 126 kg General appearance: The patient is alert, oriented, in no acute distress. HET: Head is normocephalic and atraumatic. Pupils are equal and reactive. Oropharynx is clear without lesions. Neck: Supple without lymphadenopathy. Trachea midline. Heart: S1 S2. Regular rate and rhythm. Lungs: No crackles or wheezes are heard. Abdomen: Soft, nontender, nondistended with bowel sounds. No peritoneal signs. No palpable organomegaly or masses. Extremities: Normal skin color and turgor. No cyanosis, rash, ulceration, clubbing, or edema. Radial and pedal pulses are 2/4 bilaterally. Neurological: No focal deficits. Strength and sensation are grossly intact. Results CBC & Chem 7: 05/16/17 09:39 05/16/17 02:15 Labs: Abnormal Lab Results - Last 24 Hours (Table) 05/15/17 05/15/17 05/15/17 Range/Units 17:35 17:35 17:35 RBC 2.08 L (4.30-5.90) m/uL Hgb 5.8 L* D (13.0-17.5) gm/dL Hct 18.7 L* (39.0-53.0) % MCHC 30.8 L (31.0-37.0) g/dL RDW 16.6 H (11.5-15.5) % Lymphocytes # (1.0-4.8) k/uL INR (<1.2) Sodium 134 L (137-145) mmol/L Chloride 96 L (98-107) mmol/L BUN 45 H (9-20) mg/dL Creatinine 1.48 H (0.66-1.25) mg/dL CK-MB (CK-2) 5.1 H* (0.0-2.4) ng/mL Troponin I 0.902 H* (0.000-0.034) ng/mL Total Protein 6.1 L (6.3-8.2) g/dL Crossmatch 05/15/17 05/15/17 05/16/17 Range/Units 17:35 17:35 02:15 RBC (4.30-5.90) m/uL Hgb (13.0-17.5) gm/dL Hct (39.0-53.0) % MCHC (31.0-37.0) g/dL RDW (11.5-15.5) % Lymphocytes # (1.0-4.8) k/uL INR 1.2 H (<1.2) Sodium 135 L (137-145) mmol/L Chloride 97 L (98-107) mmol/L BUN 40 H (9-20) mg/dL Creatinine 1.40 H (0.66-1.25) mg/dL CK-MB (CK-2) (0.0-2.4) ng/mL Troponin I (0.000-0.034) ng/mL Total Protein (6.3-8.2) g/dL Crossmatch See Detail 05/16/17 05/16/17 05/16/17 Range/Units 02:15 02:15 09:39 RBC 2.54 L 2.43 L (4.30-5.90) m/uL Hgb 7.2 L 6.7 L* (13.0-17.5) gm/dL Hct 22.9 L 21.8 L (39.0-53.0) % MCHC 30.9 L (31.0-37.0) g/dL RDW 17.2 H 17.3 H (11.5-15.5) % Lymphocytes # 0.8 L (1.0-4.8) k/uL INR (<1.2) Sodium (137-145) mmol/L Chloride (98-107) mmol/L BUN (9-20) mg/dL Creatinine (0.66-1.25) mg/dL CK-MB (CK-2) (0.0-2.4) ng/mL Troponin I 1.200 H* (0.000-0.034) ng/mL Total Protein (6.3-8.2) g/dL Crossmatch Assessment and Plan (1) GI bleed Narrative/Plan: 67-year-old gentleman admitted with symptomatic acute blood loss anemia with positive stool Hemoccult testing and elevated troponin level with a history of CAD AVR maintained on anticoagulation Eliquis/Plavix status post recent EGD colonoscopy evaluation with findings of short segment of Zhu's esophagus colonic diverticulosis with polypectomy 6. Etiology of bleed could be small bowel in nature however post-polypectomy bleed exacerbated by anticoagulation cannot be entirely excluded possible combination of both. Current Visit: Yes Status: Acute Code(s): K92.2 - GASTROINTESTINAL HEMORRHAGE, UNSPECIFIED SNOMED Code(s): 93199635 (2) Elevated troponin Current Visit: Yes Status: Acute Code(s): R74.8 - ABNORMAL LEVELS OF OTHER SERUM ENZYMES SNOMED Code(s): 082764978 (3) Symptomatic anemia Current Visit: Yes Status: Acute Code(s): D64.9 - ANEMIA, UNSPECIFIED SNOMED Code(s): 718223346 (4) Acute blood loss anemia Current Visit: No Status: Acute Code(s): D62 - ACUTE POSTHEMORRHAGIC ANEMIA SNOMED Code(s): 301206957 Plan: 1. Anticoagulation has been discontinued. Cardiology consulted. 2. Small bowel capsule endoscopy scheduled for tomorrow morning therefore hold oral iron today may resume after capsule study is completed. 3. CBC monitoring. Continue GI prophylaxis Protonix 40 mg daily. Blood transfusions as indicated. 4. Will follow closely with you. Further recommendations forthcoming after review of capsule endoscopy. Repeat endoscopic exams not planned at this time but contingent on clinical course. Thank you for this kind referral and the opportunity to participate in the care of your patient. This consultation was discussed with Dr. Ramos. The impression and plan of care have been directed as dictated.
[2017-05-16] MEDS ORDERED: MAGNESIUM SULFATE-D5W PMX 1 GM in DEXTROSE/WATER 1 100ML.BAG IVPB ONE (12:00)
--- NOTE | 2017-05-16 15:55 | PN ---
PROGRESS NOTE DATE OF SERVICE: 05/16/2017 PRESENTING COMPLAINT: Weak, tired. Some chest pressure. INTERVAL HISTORY: Patient with known coronary artery disease who has been on Eliquis and Plavix presented with symptomatic anemia. The patient was ordered 2 units of blood overnight. The patient's troponin went up. I was called this morning and I consulted Cardiology. Patient still feels a bit tired. Lying in bed. REVIEW OF SYSTEMS: Done for constitutional, cardiovascular, GI, pulmonary; relevant findings as above. CURRENT MEDICATIONS: Reviewed. The patient's Plavix and Eliquis have been discontinued. PHYSICAL EXAMINATION: Temperature 97.9, pulse 74, respiration 17, blood pressure 112/39, pulse ox 97% on room air. GENERAL APPEARANCE: Lying in bed, awake. EYES: Pupils equal. Conjunctivae pale. HEENT: External appearance of nose and ears normal. Oral cavity normal. NECK: JVD not raised. Mass not palpable. RESPIRATORY: Effort normal. LUNGS: Slightly decreased breath sounds. CARDIOVASCULAR: First and second sounds normal. No edema. ABDOMEN: Soft. Mild epigastric tenderness. Liver and spleen not palpable. PSYCHIATRY: Alert and oriented x3. Mood and affect normal. INVESTIGATIONS: White count 7.7. Hemoglobin 7.2, repeat 6.7. BUN 40, creatinine 1.40. Troponin 1.2. ASSESSMENT: 1. Acute gastrointestinal bleed in a patient whose recent colonoscopy and EGD were unremarkable. The patient had been on Plavix and Eliquis. Suspect a small bowel bleed. It may be noted that the patient was drinking 6 to 7 beers up until very recently. 2. Acute blood loss anemia, symptomatic, requiring blood transfusion. 3. Chronic congestive heart failure from diastolic dysfunction, ejection fraction 55% to 60%, from underlying coronary artery disease. 4. Persistent atrial fibrillation. Patient had been chronically on Eliquis. 5. Essential hypertension. 6. Aortic valve replacement for severe aortic stenosis. 7. Peripheral artery disease. 8. Primary osteoarthritis in multiple joints bilaterally. 9. Coronary artery disease with last cardiac catheterization showing chronically occluded left anterior descending coronary artery and stent to the circumflex. 10.Hyperlipidemia. 11.Obesity; body mass index of 37. 12.Acute renal failure, likely prerenal, from patient being on diuretics. 13.Acute non-Q-wave myocardial infarction, probably precipitated by acute anemia. PLAN: Patient has been ordered units of blood. Cardiology was consulted. GI will proceed with a capsule endoscopy. Will also get Nephrology to follow. Care was discussed the patient. MMODL / IJN: [id number] /
--- NOTE | 2017-05-16 16:07 | HP ---
HISTORY AND PHYSICAL ADDENDUM TO HISTORY AND PHYSICAL: DATE OF SERVICE: 05/15/2017. PHYSICAL EXAMINATION: VITAL SIGNS ON PRESENTATION: Temperature 97.9, pulse 66, respiration 24, blood pressure 108/55, pulse ox 99% on 3 L. GENERAL APPEARANCE: Well built; BMI 37.7. Lying in bed, tired-appearing. EYES: Pupils equal. Conjunctivae pale. HEENT: External appearance of nose and ears normal. Oral cavity normal. NECK: JVD unable to assess. Mass not palpable. RESPIRATORY: Effort LUNGS: Slightly decreased breath sounds. CARDIOVASCULAR: First and second sounds normal. No edema. ABDOMEN: Soft, nontender. Liver and spleen not palpable. LYMPHATIC: No lymph node palpable in neck or axillae. PSYCHIATRY: Alert and oriented x3. Mood and affect normal. NEUROLOGICAL: Pupils equal. Cranial nerves grossly intact. Power and sensation grossly intact. MMODL / IJN: [id number] /
[2017-05-16] MEDS ORDERED: MAGNESIUM CITRATE 296 ML BOTTLE PO ONE (17:00)
[2017-05-16 17:58] LABS: Anisocytosis Slight; Basophils % (A) 0 %; Eosinophils # (A) 0.2 k/uL (0-0.7); Eosinophils % (A) 2 %; HCT 25.5 % (39.0-53.0); HGB 7.8 gm/dL (13.0-17.5); Hypochromasia Moderate; Lymphocytes # (A) 0.9 k/uL (1.0-4.8); Lymphocytes % (A) 11 %; MCH 27.6 pg (25.0-35.0); MCHC 30.5 g/dL (31.0-37.0); MCV 90.5 fL (80.0-100.0); Mean Platelet Volume 7.8; Monocytes # (A) 0.7 k/uL (0-1.0); Monocytes % (A) 9 %; Neutrophils % (A) 74 %; Platelet Count 231 k/uL (150-450); Poikilocytosis Slight; RBC 2.82 m/uL (4.30-5.90); WBC 8.1 k/uL (3.8-10.6)
[2017-05-16] MEDS: ATORVASTATIN 80 MG TAB PO SCH (21:12)
[2017-05-16] MEDS: SENNOSIDES 8.6 MG TAB PO SCH (21:12)
[2017-05-17 06:38] LABS: Anisocytosis Slight; Basophils % (A) 0 %; Eosinophils # (A) 0.2 k/uL (0-0.7); Eosinophils % (A) 1 %; HCT 24.3 % (39.0-53.0); HGB 7.5 gm/dL (13.0-17.5); Hypochromasia Moderate; Lymphocytes # (A) 0.6 k/uL (1.0-4.8); Lymphocytes % (A) 6 %; MCV 90.5 fL (80.0-100.0); Mean Platelet Volume 7.3; Monocytes # (A) 0.8 k/uL (0-1.0); Monocytes % (A) 8 %; Neutrophils # (A) 8.5 k/uL (1.3-7.7); Neutrophils % (A) 81 %; Platelet Count 233 k/uL (150-450); Poikilocytosis Slight; RBC 2.68 m/uL (4.30-5.90); RDW 17.4 % (11.5-15.5); WBC 10.5 k/uL (3.8-10.6)
[2017-05-17 06:56] LABS: Anion Gap 8 mmol/L; Blood Urea Nitrogen 23 mg/dL (9-20); Carbon Dioxide 27 mmol/L (22-30); Chloride 104 mmol/L (98-107); Glucose 102 mg/dL (74-99); Phosphorus 4.2 mg/dL (2.5-4.5); Potassium 4.1 mmol/L (3.5-5.1); Sodium 139 mmol/L (137-145)
[2017-05-17] MEDS ORDERED: SIMETHICONE 40 MG/0.6 ML DROPS 2,000 MG/30 ML BOTTLE PO ONE (07:35)
--- NOTE | 2017-05-17 10:18 | P.NPCON ---
History of Present Illness - Reason for Consult Consult date: 05/17/17 - Chief Complaint Acute kidney injury with severe anemia - History of Present Illness This is a 67-year-old male seen in consultation because of acute kidney injury. His creatinine went up from 0.9 on 05/06/2017 to 1.48 on admission. No past history of chronic kidney disease. His creatinine has improved to 0.9 to He is known with a past mental history of EtOH abuse, atrial fibrillation, skin carcinoma, hypertension, MT, hyperlipidemia, CABG/AVR 2012 maintained on Eliquis and Plavix, and PVD. Patient was recently hospitalized a few weeks ago with chest pain new-onset of black-colored bowel movements severe symptomatic anemia. He underwent EGD 05/01 followed by colonoscopy on 05/02 with findings of minimal gastritis short segment of Zhu's esophagus. Colonoscopy moderate sigmoid diverticulosis with polypectomy 6; cecum, ascending colon, descending colon, sigmoid, and rectum. Biopsies consistent with tubular adenomas and EGD biopsies no evidence of dysplasia or malignancy metaplasia consistent with Zhu's change. Admission hemoglobin 2 weeks ago was as low as 6.5 he received 2 units of blood and discharge hemoglobin was 8.2. He was admitted yesterday with a hemoglobin of 5.8 but denies overt bleeding such as hematemesis hematochezia melena. He has been on oral iron and states his bowel movements are darker in color but attributes the darker color to iron. Some mild lower abdominal discomfort nothing severe. Denies fever or chills. He's received 2 additional units of blood and current hemoglobin is 6.7. Hemoccult stool positive. INR 1.2. BUN 45. Creatinine 1.4. Troponin 0.9-1.2. Past Medical History Past Medical History: Atrial Fibrillation, Cancer, Hyperlipidemia, Hypertension , Myocardial Infarction (MT), Osteoarthritis (OA), Vascular Disorder Additional Past Medical History / Comment(s): PVD, BACK PAIN, SWELLING IN ANKLES AND FEET. , STATES SKIN CANCER WITH RECENT TREATMENT. Last Myocardial Infarction Date:: 01-20-13 History of Any Multi-Drug Resistant Organisms: None Reported Past Surgical History: Heart Catheterization, Heart Catheterization With Stent Additional Past Surgical History / Comment(s): aortic valve replacement 2012, aortogram, pt states 2 failed stent replacement-1 to each leg, PAIN CLINIC PROCEDURES, ABD. [id number] plastiogram into, Past Anesthesia/Blood Transfusion Reactions: No Reported Reaction Date of Last Stent Placement:: 05/30/15 Past Psychological History: No Psychological Hx Reported Smoking Status: Former smoker Past Alcohol Use History: Daily Additional Past Alcohol Use History / Comment(s): quit smoking October 2014. smoked for >50 yrs, STATES DRINKS 6 -7 BEERS DAILY Past Drug Use History: None Reported - Past Family History Mother Family Medical History: Deep Vein Thrombosis (DVT) Medications and Allergies Home Medications Medication Instructions Recorded Confirmed Type Atorvastatin [Lipitor] 80 mg PO HS 10/06/14 05/15/17 History Cholecalciferol [Vitamin D3] 2,000 unit PO DAILY 10/06/14 05/15/17 History Metoprolol Tartrate [Lopressor] 25 mg PO BID 10/06/14 05/15/17 History Multivit-Min/FA/Lycopene/Lut 1 tab PO DAILY 10/06/14 05/15/17 History [Centrum Silver Tablet] Stedman-3 Fatty Acids/Fish Oil [Fish 1 cap PO DAILY 10/06/14 05/15/17 History Oil 1,000 mg Softgel] Nitroglycerin Sl Tabs [Nitrostat] 0.4 mg SUBLINGUAL Q5M PRN #25 tab 05/14/1504/03 Rx Clopidogrel [Plavix] 75 tab PO DAILY 11/14/15 05/15/17 History Furosemide [Lasix] 40 mg PO BID 11/14/15 05/15/17 History Amiodarone HCl [Pacerone] 200 mg PO DAILY 06/27/16 05/15/17 History Apixaban [Eliquis] 5 mg PO BID 10/08/16 05/15/17 History Gabapentin [Neurontin] 400 mg PO TID #90 cap 10/08/16 05/15/17 Rx Ferrous Sulfate [Feosol] 325 mg PO BID 04/17/17 05/15/17 History Hydrocodone/Acetaminophen 1 tab PO Q6HR PRN 04/17/17 05/15/17 History [Hydrocodon-Acetaminophen 5-325] Isosorbide Mononitrate ER [Imdur] 15 mg PO DAILY 04/29/17 05/15/17 History Metolazone [Zaroxolyn] 2.5 mg PO DAILY #30 tab 05/06/17 05/15/17 Rx Potassium Chloride ER [K-Dur 20] 20 meq PO BID #60 tab.er.prt 05/06/17 05/15/17 Rx Spironolactone [Aldactone] 25 mg PO DAILY 05/15/17 05/15/17 History Allergies Allergy/AdvReac Type Severity Reaction Status Date / Time No Known Allergies Allergy Verified 05/15/17 17:40 Physical Exam Vitals: Vital Signs Temp Pulse Pulse Resp BP BP Pulse Ox 05/17/17 09:00 97.8 F 95 16 98/54 96 05/17/17 04:00 97.9 F 102 H 18 132/65 88 L 05/17/17 00:00 97.9 F 90 17 132/55 94 L 05/16/17 21:00 98.0 F 68 15 112/40 95 05/16/17 20:00 74 16 106/33 95 05/16/17 19:00 77 15 109/44 100 05/16/17 18:00 80 28 H 109/44 97 05/16/17 17:00 65 15 130/48 97 05/16/17 16:00 98.3 F 74 18 111/51 90 L 05/16/17 15:00 65 18 95/47 95 05/16/17 14:00 80 15 99/38 94 L 05/16/17 13:00 74 18 93/62 98 05/16/17 11:55 97.7 F 60 8 L 91/57 94 L 05/16/17 11:25 97.9 F 74 17 112/39 97 05/16/17 11:15 97.9 F 59 L 15 104/49 96 05/16/17 11:05 98.1 F 66 9 L 84/39 97 Intake and Output 05/16/17 05/17/17 05/17/17 22:59 06:59 14:59 Intake Total 1010 Output Total 1200 400 Balance -190 -400 Intake: IV 600 Sodium Chloride 0.9% 1, 600 000 ml @ 100 mls/hr IV . Q10H STA Rx#:[id number] Intake, IV Titration 100 Amount Sodium Chloride 0.9% 1, 100 000 ml @ 100 mls/hr IV . Q10H STA Rx#:[id number] Blood Product 310 Rc As-1 Unit 310 [id number] Output: Urine 1200 400 Other: Voiding Method Urinal Urinal # Voids 1 # Bowel Movements 1 Weight 126.5 kg On examination is awake alert oriented comfortable HEENT exam no JVP neck is supple no facial asymmetry no card bruit pupils are equal Lungs are clear to auscultation percussion good air entry bilaterally Heart sounds are unremarkable for any murmur rub gallop although he has known aortic valve replacement. Abdomen is soft nontender no organomegaly status masses somewhat protuberant Extremity exam was no edema Neurologically awake alert oriented Results - Lab Results Most recent lab results Calcium 9.0 mg/dL (8.4-10.2) 05/17/17 06:26 Phosphorus 4.2 mg/dL (2.5-4.5) 05/17/17 06:26 Magnesium 2.1 mg/dL (1.6-2.3) 05/17/17 06:26 05/17/17 06:26 05/17/17 06:26 Assessment and Plan Assessment: Impression. 1. Acute kidney injury secondary to severe anemia hemoglobin 5.8 and likely from low blood pressure as patient was symptomatic with dizziness especially on standing up. Creatinine was 0.9 on 05/06/2017 went up to 1.48 and is down to 0.9 to posttransfusion. 2. Severe anemia recurrent. Recent EGD and colonoscopy showing Zhu's esophagus and gastritis and supposedly multiple polyps were removed from the colon. He has currently a capsule endoscopy being performed. Hemoglobin is 7.5. 3. History of coronary artery bypass graft and aortic valve replacement possibly bioprosthetic valve 2012. Stable hemodynamically. 4. Peripheral vascular disease. Recommendation. 1. Maintain current medications, including the metoprolol. 2. Blood pressure is somewhat marginal and labile. Pressures have ranged from 98/54 232/55 within the last few hours. Will watch blood pressures closely and adjust medications down if necessary. Currently he is on metoprolol 25 twice a day which she needs for his cardiac protection as he has coronary artery bypass. 3. Anemia management as per the primary physician
[2017-05-17] MEDS: ISOSORBIDE MONONITRATE ER 15 MG TAB PO SCH (11:23)
[2017-05-17] MEDS: METOPROLOL TARTRATE 25 MG TAB PO SCH ×2 (11:23→19:56)
[2017-05-17] MEDS: GABAPENTIN 400 MG CAP PO SCH ×3 (11:23→19:56)
[2017-05-17] MEDS: AMIODARONE 200 MG TAB PO SCH (11:23)
[2017-05-17] MEDS: CHOLECALCIFEROL 1,000 UNIT TAB PO SCH (11:24)
[2017-05-17] MEDS: PANTOPRAZOLE 40 MG/10 ML VIAL IVP SCH (11:24)
[2017-05-17] MEDS: MULTIVITAMINS, THERA 1 EACH TAB PO SCH (11:24)
[2017-05-17] MEDS: POTASSIUM CHLORIDE ER 20 MEQ TAB.ER PO SCH ×2 (11:24→19:56)
--- NOTE | 2017-05-17 12:50 | PN ---
PROGRESS NOTE This patient has a known history of peripheral vascular disease, aortic valve replacement. Patient came back with lower GI bleeding. He is feeling better. Denies any shortness of breath. Patient was restarted on Eliquis and Plavix. Patient's vital signs are stable. Blood pressure is 106/56 mmHg. First and second heart sounds are normal. Lungs are clear to auscultation and percussion. At present, we will recommend to hold as Eliquis and Plavix. Patient is undergoing small-bowel endoscopy and further recommendations will be made depending upon the findings. If at all, we will resume the patient is on Eliquis and omit Plavix. MMODL / IJN: [id number] /
--- NOTE | 2017-05-17 16:10 | P.PN ---
Subjective Progress Note Date: 05/17/17 Principal diagnosis: GI bleed Progress note dated 05/17/2017 This is a 67-year-old male who we saw initially in the intensive care unit with a GI bleed. He had anemia. The source of the GI bleed is not clear. He underwent capsule endoscopy. The patient has a history of atrial fibrillation hyperlipidemia hypertension previous myocardial infarction chronic back pain peripheral vascular occlusive disease status post aortic valve replacement skin cancer. He's had no further bleeding. He is resting comfortably in bed. Doesn 't require any oxygen. No critical care issues at this time. No active bleeding at this time. Objective - Vital Signs Vital signs: Vital Signs Temp 97.8 F 05/17/17 09:00 Pulse 88 05/17/17 11:22 Resp 18 05/17/17 11:22 BP 106/56 05/17/17 11:22 Pulse Ox 94 L 05/17/17 11:22 Intake & Output 05/16/17 05/17/17 05/17/17 18:59 06:59 18:59 Intake Total 1920 200 Output Total 1600 1200 Balance 320 -1000 Weight 126.5 kg Intake: IV 1610 100 Magnesium Sulfate-D5w Pmx 100 1 gm In Dextrose/Water 1 100ml.bag @ 100 mls/hr IVPB ONCE ONE Rx#: [id number] PRBC 310 Sodium Chloride 0.9% 1, 1200 100 000 ml @ 100 mls/hr IV . Q10H STA Rx#:[id number] Intake, IV Titration 100 Amount Sodium Chloride 0.9% 1, 100 000 ml @ 100 mls/hr IV . Q10H STA Rx#:[id number] Blood Product 310 Rc As-1 Unit 310 [id number] Output: Urine 1600 1200 Other: Voiding Method Urinal Urinal Urinal # Voids 1 1 2 # Bowel Movements 1 - Exam No acute distress, oriented 3. HEENT examination is grossly unremarkable. Mucous membranes are moist. No oral lesions. Neck supple. Full range of motion. No adenopathy thyromegaly or neck vein distention. Cardiovascular examination reveals regular rhythm rate. S1-S2 normal. No S3 or S4. No discernible murmur noted. Lungs reveal clear breath sounds. Her sounds are equal bilaterally. No adventitious lung sounds including wheezes rhonchi or crackles. Abdomen soft bowel sounds are heard. No masses or tenderness. Extremities are intact. No cyanosis clubbing or edema. Skin is without rash or lesion. Neurologic examination is brief but nonfocal. - Labs CBC & Chem 7: 05/17/17 06:26 05/17/17 06:26 Labs: Abnormal Lab Results - Last 24 Hours (Table) 05/16/17 05/16/17 05/17/17 Range/Units 17:39 17:39 06:26 RBC 2.82 L 2.68 L (4.30-5.90) m/uL Hgb 7.8 L 7.5 L (13.0-17.5) gm/dL Hct 25.5 L 24.3 L (39.0-53.0) % MCHC 30.5 L (31.0-37.0) g/dL RDW 17.0 H 17.4 H (11.5-15.5) % Neutrophils # 8.5 H (1.3-7.7) k/uL Lymphocytes # 0.9 L 0.6 L (1.0-4.8) k/uL BUN (9-20) mg/dL Glucose (74-99) mg/dL Troponin I 0.625 H* (0.000-0.034) ng/mL 05/17/17 05/17/17 Range/Units 06:26 06:26 RBC (4.30-5.90) m/uL Hgb (13.0-17.5) gm/dL Hct (39.0-53.0) % MCHC (31.0-37.0) g/dL RDW (11.5-15.5) % Neutrophils # (1.3-7.7) k/uL Lymphocytes # (1.0-4.8) k/uL BUN 23 H (9-20) mg/dL Glucose 102 H (74-99) mg/dL Troponin I 0.267 H* (0.000-0.034) ng/mL Assessment and Plan Assessment: Assessment Probable GI bleed with anemia, although source not clear. History of atrial fibrillation History of hyperlipidemia History of hypertension Previous history of myocardial infarction History of chronic back pain Peripheral vascular disease Status post aortic valve replacement History of skin cancer Plan: Plan dated 05/16/2017 The patient seems be relatively stable. The patient's nasal O2 can be discontinued. The patient did receive 2 units of PRBCs. Additional recommendations and suggestions are forthcoming. We'll await for GI input. Medications labs and x-rays are all reviewed. Plan dated 05/17/2017 The patient's doing well. He had Endoscopy. The Patient's Nasal O2 Was Discontinued. He Did Receive 2 Units of Blood. The Patient Was Transferred Out Of the Intensive Care Unit. No Critical Care Issues or Active Bleeding at This Time. We'll Follow As Needed. Time with Patient: Less than 30
[2017-05-17] MEDS: ATORVASTATIN 80 MG TAB PO SCH (19:56)
[2017-05-17] MEDS: SENNOSIDES 8.6 MG TAB PO SCH (19:57)
[2017-05-17] MEDS ORDERED: FERROUS SULFATE 325 MG TAB PO SCH (21:00)
[2017-05-18 06:36] LABS: Anisocytosis Slight; Basophils % (A) 0 %; Eosinophils # (A) 0.1 k/uL (0-0.7); Eosinophils % (A) 1 %; HCT 25.2 % (39.0-53.0); HGB 7.8 gm/dL (13.0-17.5); Hypochromasia Moderate; Lymphocytes # (A) 0.7 k/uL (1.0-4.8); Lymphocytes % (A) 7 %; MCH 28.4 pg (25.0-35.0); MCHC 30.8 g/dL (31.0-37.0); MCV 92.1 fL (80.0-100.0); Mean Platelet Volume 7.4; Monocytes # (A) 0.9 k/uL (0-1.0); Monocytes % (A) 10 %; Neutrophils # (A) 7.1 k/uL (1.3-7.7); Neutrophils % (A) 77 %; Platelet Count 227 k/uL (150-450); Poikilocytosis Slight; RBC 2.74 m/uL (4.30-5.90); RDW 17.7 % (11.5-15.5); WBC 9.1 k/uL (3.8-10.6)
[2017-05-18 07:02] LABS: Anion Gap 8 mmol/L; Blood Urea Nitrogen 18 mg/dL (9-20); Calcium 8.6 mg/dL (8.4-10.2); Carbon Dioxide 26 mmol/L (22-30); Chloride 102 mmol/L (98-107); Glucose 100 mg/dL (74-99); Phosphorus 4.5 mg/dL (2.5-4.5); Sodium 136 mmol/L (137-145)
[2017-05-18] MEDS: METOPROLOL TARTRATE 25 MG TAB PO SCH ×2 (08:16→20:34)
[2017-05-18] MEDS: GABAPENTIN 400 MG CAP PO SCH ×3 (08:16→20:34)
[2017-05-18] MEDS: POTASSIUM CHLORIDE ER 20 MEQ TAB.ER PO SCH ×2 (08:16→20:34)
[2017-05-18] MEDS: ISOSORBIDE MONONITRATE ER 15 MG TAB PO SCH (08:16)
[2017-05-18] MEDS: PANTOPRAZOLE 40 MG/10 ML VIAL IVP SCH (08:16)
[2017-05-18] MEDS: AMIODARONE 200 MG TAB PO SCH (08:16)
[2017-05-18] MEDS ORDERED: IPRATROPIUM-ALBUTEROL 3 ML NEB INHALATION STA ×2 (08:48→08:50)
[2017-05-18] MEDS ORDERED: FUROSEMIDE 10 MG/ML 2 ML VIAL IV ONE (09:00)
--- NOTE | 2017-05-18 10:11 | XR ---
EXAMINATION TYPE: XR chest 1V portable DATE OF EXAM: 05/18/2017 COMPARISON: 05/15/2017 INDICATION: Short of breath TECHNIQUE: Single frontal view of the chest is obtained. FINDINGS: The heart size is normal. The pulmonary vasculature is upper limits of normal. The lungs are clear. Sternotomy wires are present. There are scattered Harmony B lines present. Early CHF should be conside red. IMPRESSION: 1. Clinical consideration for early congestive heart failure is recommended.
--- NOTE | 2017-05-18 10:22 | P.PN ---
Subjective Progress Note Date: 05/18/17 Principal diagnosis: This is a 67-year-old male seen in consultation because of acute kidney injury. Creatinine was 0.9 on 05/06/2017, went up to 1.48 on admission. He came in because of severe anemia and the acute kidney injury is deemed to be from hypo- perfusion and likely hypotension. He is being worked up for the anemia and actually had recently had colonoscopy and EGD. This was on 05/01/2017 and was found to have Zhu's esophagus and a short segment of gastritis. He underwent polypectomies during his colonoscopy. This morning he is feeling much better. Continues to have shortness of breath though. He was given breathing treatment with some relief. In the past she is known with carotid artery bypass graft and aortic valve replacement in 2012, atrial fibrillation all call abuse and peripheral vascular disease. Objective - Vital Signs Vital signs: Vital Signs Temp 97.4 F L 05/18/17 08:00 Pulse 88 05/18/17 09:11 Resp 18 05/18/17 10:05 BP 123/66 05/18/17 08:00 Pulse Ox 92 L 05/18/17 10:05 Intake & Output 05/17/17 05/18/17 05/18/17 18:59 06:59 18:59 Intake Total 240 Output Total 200 Balance 240 -200 Weight 123.5 kg Intake: Oral 240 Output: Urine 200 Other: Voiding Method Urinal Urinal # Voids 2 1 On examination is awake alert oriented comfortable Patient exam no JVP neck is supple no facial asymmetry Lungs are significant for bilateral fine crackles at bases with good air entry bilaterally no dullness to percussion. Heart sounds unremarkable seen to be normal sinus rhythm. Abdomen soft nontender except in the right upper quadrant Extremity exam was mild edema Awake alert oriented. No focal motor deficit. - Labs CBC & Chem 7: 05/18/17 06:16 05/18/17 06:16 Labs: Abnormal Lab Results - Last 24 Hours (Table) 05/18/17 05/18/17 Range/Units 06:16 06:16 RBC 2.74 L (4.30-5.90) m/uL Hgb 7.8 L (13.0-17.5) gm/dL Hct 25.2 L (39.0-53.0) % MCHC 30.8 L (31.0-37.0) g/dL RDW 17.7 H (11.5-15.5) % Lymphocytes # 0.7 L (1.0-4.8) k/uL Sodium 136 L (137-145) mmol/L Glucose 100 H (74-99) mg/dL Assessment and Plan Assessment: Impression. 1. Acute kidney injury secondary to severe anemia hemoglobin 5.8 and likely from low blood pressure as patient was symptomatic with dizziness especially on standing up. Creatinine was 0.9 on 05/06/2017 went up to 1.48 and is down to 0.9 to posttransfusion, further to 0.8 this morning. 2. Severe anemia recurrent. Recent EGD and colonoscopy showing Zhu's esophagus and gastritis and supposedly multiple polyps were removed from the colon. He has currently a capsule endoscopy being performed. Hemoglobin is 7.5 > 7.8. No further BM since yesterday.. 3. History of coronary artery bypass graft and aortic valve replacement possibly bioprosthetic valve 2012. 4. Complains of shortness of breath and clinically and radiologically in congestive heart failure. 5. Peripheral vascular disease. Recommendation. 1. Patient was given 20 mg of Lasix this morning but remains in congestive heart failure we will give him 40 mg of Lasix 1 more dose and keep a close watch on intake and output. 2. Maintain current medications, including the metoprolol. 3. Anemia management as per the primary physician Would consider transfusing him as he is short of breath. 4. Will continue to follow for the next 24-48 hours
[2017-05-18] MEDS: MULTIVITAMINS, THERA 1 EACH TAB PO SCH (11:39)
[2017-05-18] MEDS: CHOLECALCIFEROL 1,000 UNIT TAB PO SCH (11:39)
--- NOTE | 2017-05-18 14:28 | PN ---
PROGRESS NOTE This patient was admitted with low hemoglobin and GI bleeding. The patient clinically remains stable. He did not have any bowel movements in last 24 hours. Hemoglobin remains around 8 g. First and second heart sounds are normal. Lungs are clear to auscultation and percussion. We will continue the current medications. MMDAVID / PRICE: [id number] /
--- NOTE | 2017-05-18 18:45 | P.PN ---
Subjective Progress Note Date: 05/17/17 Principal diagnosis: Symptomatic anemia and GI bleed Patient is a 67-year-old male with a known history of coronary artery disease , CABG and Aortic valve replacement and paroxysmal atrial fibrillation, currently on anticoagulation and Plavix admitted with symptomatic anemia. Patient had 2 units of PRBC transfusion. Patient also found have acute kidney injury and mild troponin elevation. Cardiology and nephrology has been consulted and ulnar is following at this time. Patient is being worked up for anemia and had recently EGD and colonoscopy. 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 05/17/2017 Today patient is complaining of tiredness and minimal improvement in shortness of breath. No fever no chills. GI bleed source is not clear. Otherwise patient is undergoing capsule endoscopy today. Hemoglobin is fairly stable. Otherwise denied any active rectal bleed. Last bowel movement he had was dark- colored as per patient. No headache or dizziness. No complaints of chest pain. Nephrology and pulmonary is following. Plavix and I'll increase eliquis is on hold. All other review of systems negative except the above Active Medications Hydrocodone Bitart/Acetaminophen ([place] 5-325) 1 each PO Q6HR PRN PRN Reason: Pain Control Amiodarone HCl (Cordarone) 200 mg PO DAILY [facility] Last Admin: 05/18/17 08:16 Dose: 200 mg Atorvastatin Calcium (Lipitor) 80 mg PO HS [facility] Last Admin: 05/17/17 19:56 Dose: 80 mg Cholecalciferol (Vitamin D3) 2,000 unit PO 1200 [facility] Last Admin: 05/18/17 11:39 Dose: 2,000 unit Furosemide (Lasix) 20 mg IV Q12HR [facility] Gabapentin (Neurontin) 400 mg PO TID [facility] Last Admin: 05/18/17 15:56 Dose: 400 mg Isosorbide Mononitrate (Imdur) 15 mg PO DAILY [facility] Last Admin: 05/18/17 08:16 Dose: 15 mg Metoprolol Tartrate (Lopressor) 25 mg PO BID [facility] Last Admin: 05/18/17 08:16 Dose: 25 mg Morphine Sulfate (Morphine Sulfate (Inj)) 2 mg IV Q2HR PRN PRN Reason: Pain Scale 4 to 5 Multivitamins (Theragran) 1 each PO 1200 [facility] Last Admin: 05/18/17 11:39 Dose: 1 each Naloxone HCl (Narcan) 0.2 mg IV Q2M PRN PRN Reason: Opioid Reversal Nitroglycerin (Nitrostat) 0.4 mg SUBLINGUAL Q5M PRN PRN Reason: Chest Pain Pantoprazole Sodium (Protonix) 40 mg IVP DAILY [facility] Last Admin: 05/18/17 08:16 Dose: 40 mg Potassium Chloride (K-Dur 20) 20 meq PO BID [facility] Last Admin: 05/18/17 08:16 Dose: 20 meq Senna (Senokot) 17.2 mg PO HS [facility] Last Admin: 05/17/17 19:57 Dose: Not Given Objective - Vital Signs Vital signs: Vital Signs Temp 98.6 F 05/17/17 16:58 Pulse 85 05/17/17 16:58 Resp 18 05/17/17 16:58 BP 97/57 05/17/17 16:58 Pulse Ox 93 L 05/17/17 16:58 Intake & Output 05/17/17 05/17/17 05/18/17 06:59 18:59 06:59 Intake Total 200 240 Output Total 1200 Balance -1000 240 Weight 126.5 kg Intake: IV 100 Sodium Chloride 0.9% 1, 100 000 ml @ 100 mls/hr IV . Q10H [facility] Rx#:[id number] Intake, IV Titration 100 Amount Sodium Chloride 0.9% 1, 100 000 ml @ 100 mls/hr IV . Q10H [facility] Rx#:[id number] Oral 240 Output: Urine 1200 Other: Voiding Method Urinal Urinal # Voids 1 2 # Bowel Movements 1 - Exam PHYSICAL EXAMINATION: Patient is lying in the bed comfortably, no acute distress, awake alert and oriented.. HEENT: Normocephalic. Neck is supple. Pupils reactive. Nostrils clear. Oral cavity is moist. Ears reveal no drainage. Neck reveals no JVD, carotid bruits, or thyromegaly. CHEST EXAMINATION: Trachea is central. Symmetrical expansion. Bilateral diminished air entry with rhonchi CARDIAC: Normal S1, S2 with no gallops. No murmurs ABDOMEN: Soft. Bowel sounds normal. No organomegaly. No abdominal bruits. Extremities: Trace edema. No clubbing or cyanosis Neurologically awake, alert, oriented x3 with well-coordinated movements. No focal deficits noted Skin: No rash or skin lesions. Psychiatric: Cooperative. Nonsuicidal Musculoskeletal: No joint swelling or deformity. Normal range of motion. - Labs CBC & Chem 7: 05/18/17 06:16 05/18/17 06:16 Labs: Abnormal Lab Results - Last 24 Hours (Table) 05/17/17 05/17/17 05/17/17 Range/Units 06:26 06:26 06:26 RBC 2.68 L (4.30-5.90) m/uL Hgb 7.5 L (13.0-17.5) gm/dL Hct 24.3 L (39.0-53.0) % RDW 17.4 H (11.5-15.5) % Neutrophils # 8.5 H (1.3-7.7) k/uL Lymphocytes # 0.6 L (1.0-4.8) k/uL BUN 23 H (9-20) mg/dL Glucose 102 H (74-99) mg/dL Troponin I 0.267 H* (0.000-0.034) ng/mL Assessment and Plan Assessment: Acute GI bleed with recent negative colonoscopy and EGD. Patient is getting capsule endoscopy today. Plavix and eliquis is on hold Acute blood loss anemia/symptomatic anemia due to GI bleed Acute kidney injury likely prerenal with acute blood loss. Creatinine 1.48 came down to 0.9 Persistent atrial fibrillation. On anticoagulation Chronic CHF with diastolic dysfunction ejection fraction 55-60% Coronary artery disease with history of CABG Essential hypertension Chronic alcohol abuse with 6-7 beers daily Osteoarthritis of multiple joints Peripheral vascular disease Aortic valve replacement for severe aortic stenosis Coronary artery disease with the last cath showing chronically occluded LAD and stent to circumflex Hyperlipidemia Morbid obesity with BMI 37 Acute non-Q-wave RI possibly precipitated by anemia Plan: Patient be continued on Protonix and hold anticoagulation. Follow up renal function and hemoglobin. GI and nephrology and cardiology is following. We will follow up capsule endoscopy report. Further recommendations based on the clinical course. Monitor for alcohol withdrawal symptoms. Prognosis is guarded with multiple medical problems and comorbid conditions. Time with Patient: Greater than 30
[2017-05-18] MEDS: SENNOSIDES 8.6 MG TAB PO SCH (20:34)
[2017-05-18] MEDS: FUROSEMIDE 10 MG/ML 2 ML VIAL IV SCH (20:34)
[2017-05-18] MEDS: ATORVASTATIN 80 MG TAB PO SCH (20:34)
[2017-05-19 06:45] LABS: Anisocytosis Slight; Basophils % (A) 0 %; Eosinophils # (A) 0.1 k/uL (0-0.7); Eosinophils % (A) 1 %; HCT 24.6 % (39.0-53.0); HGB 7.4 gm/dL (13.0-17.5); Hypochromasia Moderate; Lymphocytes # (A) 0.7 k/uL (1.0-4.8); Lymphocytes % (A) 9 %; MCV 93.3 fL (80.0-100.0); Mean Platelet Volume 7.3; Monocytes # (A) 0.8 k/uL (0-1.0); Monocytes % (A) 11 %; Neutrophils # (A) 5.6 k/uL (1.3-7.7); Neutrophils % (A) 74 %; Platelet Count 222 k/uL (150-450); RBC 2.63 m/uL (4.30-5.90); RDW 17.4 % (11.5-15.5); WBC 7.6 k/uL (3.8-10.6)
--- NOTE | 2017-05-19 06:53 | P.PN ---
Subjective Progress Note Date: 05/18/17 67-year-old male with a past medical history of EtOH abuse, atrial fibrillation , skin carcinoma, hypertension, [place], hyperlipidemia, CABG/AVR 2013 maintained on Eliquis and Plavix, and PVD. Patient was recently hospitalized a few weeks ago with chest pain new-onset of black-colored bowel movements severe symptomatic anemia. He underwent EGD 05/01 followed by colonoscopy on 05/02 with findings of minimal gastritis short segment of Zhu's esophagus. Colonoscopy moderate sigmoid diverticulosis with polypectomy 6; cecum, ascending colon, descending colon, sigmoid, and rectum. Biopsies consistent with tubular adenomas and EGD biopsies no evidence of dysplasia or malignancy metaplasia consistent with Zhu's change. Admission hemoglobin 2 weeks ago was as low as 6.5 he received 2 units of blood and discharge hemoglobin was 8.2. He was admitted this time with a hemoglobin of 5.8 but denies overt bleeding such as hematemesis, hematochezia or melena. He has been on oral iron and states his bowel movements are darker in color but attributes the darker color to iron. Some mild lower abdominal discomfort nothing severe. Denies fever or chills. He's received 2 additional units of blood and current hemoglobin is 6.7. Hemoccult stool positive. INR 1.2. BUN 45. Creatinine 1.4. Troponin 0.9-1.2. Capsule endoscopy perfomed yesterday showed angiectasias in proximal small bowel with active bleeding. Objective - Vital Signs Vital signs: Vital Signs Temp 98 F 05/18/17 15:55 Pulse 86 05/18/17 15:55 Resp 16 05/18/17 15:55 BP 110/56 05/18/17 15:55 Pulse Ox 96 05/18/17 15:55 Intake & Output 05/17/17 05/18/17 05/18/17 18:59 06:59 18:59 Intake Total 240 Output Total 200 Balance 240 -200 Weight 123.5 kg Intake: Oral 240 Output: Urine 200 Other: Voiding Method Urinal Urinal Urinal # Voids 2 1 1 - Exam General appearance: The patient is alert, oriented, in no acute distress. HET: Head is normocephalic and atraumatic. Pupils are equal and reactive. Oropharynx is clear without lesions. Neck: Supple without lymphadenopathy. Trachea midline. Heart: S1 S2. Regular rate and rhythm. Lungs: No crackles or wheezes are heard. Abdomen: Soft, nondistended with bowel sounds. No peritoneal signs. No palpable organomegaly or masses. Extremities: Normal skin color and turgor. No cyanosis, rash, ulceration, clubbing, or edema. Radial and pedal pulses are 2/4 bilaterally. Neurological: No focal deficits. Strength and sensation are grossly intact. - Labs CBC & Chem 7: 05/18/17 06:16 05/18/17 06:16 Labs: Abnormal Lab Results - Last 24 Hours (Table) 05/18/17 05/18/17 Range/Units 06:16 06:16 RBC 2.74 L (4.30-5.90) m/uL Hgb 7.8 L (13.0-17.5) gm/dL Hct 25.2 L (39.0-53.0) % MCHC 30.8 L (31.0-37.0) g/dL RDW 17.7 H (11.5-15.5) % Lymphocytes # 0.7 L (1.0-4.8) k/uL Sodium 136 L (137-145) mmol/L Glucose 100 H (74-99) mg/dL Assessment and Plan Assessment: GI bleeding and anemia secondary to small bowel angiectasias. Plan: Will plan small bowel enteroscopy tomorrow.
[2017-05-19 06:56] LABS: Anion Gap 10 mmol/L; Blood Urea Nitrogen 15 mg/dL (9-20); Calcium 8.2 mg/dL (8.4-10.2); Carbon Dioxide 27 mmol/L (22-30); Chloride 99 mmol/L (98-107); Glucose 103 mg/dL (74-99); Phosphorus 3.9 mg/dL (2.5-4.5); Potassium 4.1 mmol/L (3.5-5.1); Sodium 136 mmol/L (137-145)
[2017-05-19] MEDS: AMIODARONE 200 MG TAB PO SCH (08:24)
[2017-05-19] MEDS: FUROSEMIDE 10 MG/ML 2 ML VIAL IV SCH ×2 (08:24→20:56)
[2017-05-19] MEDS: POTASSIUM CHLORIDE ER 20 MEQ TAB.ER PO SCH ×2 (08:25→20:56)
[2017-05-19] MEDS: GABAPENTIN 400 MG CAP PO SCH ×3 (08:25→20:56)
[2017-05-19] MEDS: METOPROLOL TARTRATE 25 MG TAB PO SCH ×2 (08:25→20:56)
[2017-05-19] MEDS: ISOSORBIDE MONONITRATE ER 15 MG TAB PO SCH (08:25)
[2017-05-19] MEDS: PANTOPRAZOLE 40 MG/10 ML VIAL IVP SCH (08:25)
--- NOTE | 2017-05-19 12:11 | P.PN ---
Subjective Progress Note Date: 05/19/17 This is a 67-year-old gentleman who follows regularly with Dr. VC Rodas in the office. He was discharged from the hospital after presenting with a GI bleed, colonoscopy and polypectomy were performed. The advised by GI service was to resume anticoagulation 2 days following. Patient came back to the hospital on this admission with some chest pain and shortness of breath, considerable lack of energy. He was found to have any moment of 5.7. Patient does have chronic atrial fibrillation and has been on Eliquis 5 twice a day along with Plavix. Patient also has history of coronary artery bypass grafting surgery and aortic valve replacement. Patient did receive blood transfusion, hemoglobin today is 7.4, sodium 136, potassium 4.1, BUN 15, creatinine 0.8. Patient denies any chest discomfort, no shortness of breath. Capsule endoscopy and process. Patient remains hemodynamically stable. Objective - Vital Signs Vital signs: Vital Signs Temp 97.9 F 05/19/17 11:53 Pulse 67 05/19/17 11:53 Resp 18 05/19/17 11:53 BP 95/46 05/19/17 11:53 Pulse Ox 96 05/19/17 11:53 Intake & Output 05/18/17 05/19/17 05/19/17 18:59 06:59 18:59 Intake Total 240 Output Total 1025 Balance 240 -1025 Weight 124.2 kg Intake: Oral 240 Output: Urine 1025 Other: Voiding Method Urinal Urinal # Voids 1 - Exam PHYSICAL EXAMINATION: HEENT: Head is atraumatic, normocephalic. Pupils equal, round. Neck is supple. There is no elevated jugular venous pressure. HEART EXAMINATION: Heart S1, S2 normal. No murmur or gallop heard. CHEST EXAMINATION: Lungs are clear to auscultation and precussion. No chest wall tenderness is noted on palpation or with deep breathing. ABDOMEN: Soft, nontender. Bowel sounds are heard. No organomegaly noted. EXTREMITIES: 2+ peripheral pulses with no evidence of peripheral edema and no calf tenderness noted. NEUROLOGIC patient is awake, alert and oriented -3. . - Labs CBC & Chem 7: 05/19/17 05:56 05/19/17 05:56 Labs: Abnormal Lab Results - Last 24 Hours (Table) 05/15/17 05/19/17 05/19/17 Range/Units 17:35 05:56 05:56 RBC 2.63 L (4.30-5.90) m/uL Hgb 7.4 L (13.0-17.5) gm/dL Hct 24.6 L (39.0-53.0) % MCHC 30.0 L (31.0-37.0) g/dL RDW 17.4 H (11.5-15.5) % Lymphocytes # 0.7 L (1.0-4.8) k/uL Sodium 136 L (137-145) mmol/L Glucose 103 H (74-99) mg/dL Calcium 8.2 L (8.4-10.2) mg/dL Crossmatch See Detail Assessment and Plan Plan: Assessment and plan #1 acute GI bleed, capsule endoscopy in progress. Plavix and Eliquis continue to be on hold. #2 acute on chronic kidney injury #3 chronic persistent atrial fibrillation #4 history of coronary artery disease with prior bypass surgery # 5 history of aortic valve replacement for severe aortic stenosis #6 hypertension #7 chronic alcohol use #8 hyperlipidemia Plan From cardiology's perspective, we will continue the patient on his current medications. Eliquis and Plavix continued to be on hold, patient is undergoing a small bowel endoscopy. Further recommendations will be made depending on the findings of that, if at all we will resume the patient's Eliquis and omit the Plavix. DNP note has been reviewed, I agree with a documented findings and plan of care. Patient was seen and examined.
[2017-05-19] MEDS ORDERED: LIDOCAINE 1% INJ 10MG/ML (20 ML MDV) ONE (14:27)
[2017-05-19] MEDS ORDERED: PROPOFOL 10 MG/ML 20 ML VIAL IV ONE (14:27)
[2017-05-19] MEDS ORDERED: MIDAZOLAM 2 MG/2 ML VIAL ONE (14:27)
[2017-05-19] MEDS ORDERED: KETAMINE 10 MG/ML 20 ML VIAL ONE (14:27)
[2017-05-19] MEDS ORDERED: IV FLUID CONTINUATION 1,000 ML IV ONE (14:30)
--- NOTE | 2017-05-19 15:12 | P.PCN ---
Date of Procedure: 05/19/17 Procedure(s) Performed: Procedure: Upper endoscopy and small bowel enteroscopy. Preoperative diagnosis: GI bleeding and anemia and abnormal capsule endoscopy. Postoperative diagnosis: Mild antral gastritis. Exam of the small bowel to mid ileum show no angiectasia as or bleeding.. Preparation and sedation: Were provided by anesthesia. Brief clinical history: The patient is a 67-year-old male with a past medical history of EtOH abuse, atrial fibrillation, skin carcinoma, hypertension, [place], hyperlipidemia, CABG/AVR 2013 maintained on Eliquis and Plavix, and PVD. Patient was recently hospitalized a few weeks ago with chest pain new-onset of black-colored bowel movements severe symptomatic anemia. He underwent EGD 05/01 followed by colonoscopy on 05/02 with findings of minimal gastritis short segment of Zhu's esophagus. Colonoscopy moderate sigmoid diverticulosis with polypectomy 6; cecum, ascending colon, descending colon, sigmoid, and rectum. Biopsies consistent with tubular adenomas and EGD biopsies no evidence of dysplasia or malignancy metaplasia consistent with Zhu's change. Admission hemoglobin 2 weeks ago was as low as 6.5 he received 2 units of blood and discharge hemoglobin was 8.2. He was admitted this time with a hemoglobin of 5.8 but denies overt bleeding such as hematemesis, hematochezia or melena. He has been on oral iron and states his bowel movements are darker in color but attributes the darker color to iron. Some mild lower abdominal discomfort nothing severe. Denies fever or chills. He's received 2 additional units of blood and current hemoglobin is 6.7. Hemoccult stool positive. INR 1.2. BUN 45. Creatinine 1.4. Troponin 0.9-1.2. Capsule endoscopy perfomed Friday showed angiectasias in proximal small bowel with active bleeding. This evaluation was last scheduled for endoscopic intervention. Procedure: With the patient on his left lateral decubitus position and after informed consent and adequate sedation, I used the Olympus PCF Q1 80 [place] pediatric colonoscope and advanced it under direct vision through the cricopharyngeus down the esophagus. No obvious abnormalities were seen in the esophagus. The endoscope was then passed into the stomach which was insufflated with air and inspected in detail including the retroflex view in the cardia. There was some mottling and erythema in the antrum but no ulcers, erosions or bleeding. The endoscope was then advanced through the pylorus into the duodenum. The duodenal bulb, post bulbar area and descending duodenum as well as the transverse duodenum did not show any abnormalities or bleeding. The endoscope was then advanced further into the jejunum and the ileum. The areas examined would certainly correspond to the areas of abnormalities I noted on the capsule study, however, I was not able to see any angiectasia as or any evidence of bleeding in the areas examined to around mid ileum. All secretions with yellow/bilious in color. No biopsies or interventions are indicated. Plan: I summarize the findings to the patient and his sister. Since the patient needs to be on antiplatelet therapy because of his atrial fibrillation, consideration will be given to symptomatic treatment and blood transfusions. Referral for double-balloon enteroscopy can be considered, to reassess the small bowel areas I examined today and to examine the rest of the ileum. I will discuss with you and follow with you with interest.
[2017-05-19] MEDS: MULTIVITAMINS, THERA 1 EACH TAB PO SCH (15:49)
[2017-05-19] MEDS: CHOLECALCIFEROL 1,000 UNIT TAB PO SCH (15:49)
[2017-05-19] MEDS ORDERED: LORazepam 0.5 MG TAB PO STA (17:23)
[2017-05-19] MEDS: SENNOSIDES 8.6 MG TAB PO SCH (20:56)
[2017-05-19] MEDS: ATORVASTATIN 80 MG TAB PO SCH (20:56)
[2017-05-20 06:30] LABS: Anisocytosis Slight; Basophils % (A) 0 %; Eosinophils # (A) 0.1 k/uL (0-0.7); Eosinophils % (A) 2 %; HCT 22.7 % (39.0-53.0); HGB 7.3 gm/dL (13.0-17.5); Hypochromasia Slight; Lymphocytes # (A) 0.5 k/uL (1.0-4.8); Lymphocytes % (A) 7 %; MCH 28.7 pg (25.0-35.0); MCV 89.8 fL (80.0-100.0); Mean Platelet Volume 7.4; Monocytes # (A) 0.6 k/uL (0-1.0); Monocytes % (A) 10 %; Neutrophils # (A) 4.9 k/uL (1.3-7.7); Neutrophils % (A) 77 %; Platelet Count 224 k/uL (150-450); RBC 2.53 m/uL (4.30-5.90); WBC 6.4 k/uL (3.8-10.6)
[2017-05-20 06:48] LABS: Anion Gap 8 mmol/L; Blood Urea Nitrogen 17 mg/dL (9-20); Carbon Dioxide 28 mmol/L (22-30); Chloride 102 mmol/L (98-107); Glucose 101 mg/dL (74-99); Phosphorus 3.6 mg/dL (2.5-4.5); Potassium 4.3 mmol/L (3.5-5.1); Sodium 138 mmol/L (137-145)
[2017-05-20] MEDS: GABAPENTIN 400 MG CAP PO SCH ×3 (08:27→20:14)
[2017-05-20] MEDS: METOPROLOL TARTRATE 25 MG TAB PO SCH ×2 (08:27→20:14)
[2017-05-20] MEDS: ISOSORBIDE MONONITRATE ER 15 MG TAB PO SCH (08:27)
[2017-05-20] MEDS: FUROSEMIDE 10 MG/ML 2 ML VIAL IV SCH ×2 (08:27→20:14)
[2017-05-20] MEDS: AMIODARONE 200 MG TAB PO SCH (08:27)
[2017-05-20] MEDS: POTASSIUM CHLORIDE ER 20 MEQ TAB.ER PO SCH ×2 (08:28→20:14)
[2017-05-20] MEDS: PANTOPRAZOLE 40 MG/10 ML VIAL IVP SCH (08:28)
--- NOTE | 2017-05-20 11:26 | P.PN ---
Subjective Progress Note Date: 05/20/17 Principal diagnosis: GI bleed Admitted with acute GI bleed abnormal capsule endoscopy. Patient underwent upper endoscopy with small bowel enteroscopy yesterday with no evidence of active bleeding. Passed a dark colored bowel movement this morning. Hemoglobin 7.3. Denies abdominal pain. Objective - Vital Signs Vital signs: Vital Signs Temp 98.5 F 05/20/17 08:00 Pulse 95 05/20/17 08:00 Resp 20 05/20/17 08:00 BP 89/45 05/20/17 08:00 Pulse Ox 93 L 05/20/17 08:00 Intake & Output 05/19/17 05/20/17 05/20/17 18:59 06:59 18:59 Intake Total 600 600 240 Balance 600 600 240 Weight 120.8 kg Intake: IV 600 Oral 600 240 Other: Voiding Method Urinal Urinal # Voids 1 - Exam General appearance: The patient is alert, oriented, in no acute distress. HET: Head is normocephalic and atraumatic. Pupils are equal and reactive. Oropharynx is clear without lesions. Neck: Supple without lymphadenopathy. Trachea midline. Heart: S1 S2. Lungs: No crackles or wheezes are heard. Abdomen: Soft, nontender, nondistended with bowel sounds. No peritoneal signs. No palpable organomegaly or masses. Extremities: Normal skin color and turgor. No cyanosis, rash, ulceration, clubbing, or edema. Radial and pedal pulses are 2/4 bilaterally. Neurological: No focal deficits. Strength and sensation are grossly intact. - Labs CBC & Chem 7: 05/20/17 05:56 05/20/17 05:56 Labs: Abnormal Lab Results - Last 24 Hours (Table) 05/20/17 05/20/17 Range/Units 05:56 05:56 RBC 2.53 L (4.30-5.90) m/uL Hgb 7.3 L (13.0-17.5) gm/dL Hct 22.7 L (39.0-53.0) % RDW 17.0 H (11.5-15.5) % Lymphocytes # 0.5 L (1.0-4.8) k/uL Glucose 101 H (74-99) mg/dL Calcium 8.0 L (8.4-10.2) mg/dL Assessment and Plan (1) GI bleed Narrative/Plan: 67-year-old gentleman admitted with symptomatic acute blood loss anemia with positive stool Hemoccult testing and elevated troponin level with a history of CAD AVR maintained on anticoagulation Eliquis/Plavix status post recent EGD colonoscopy evaluation with findings of short segment of Zhu's esophagus colonic diverticulosis with polypectomy 6. Status post capsule endoscopy with abnormalities showing angiectasia in the proximal small bowel with active bleeding status post recent surveillance EGD/enteroscopy with no evidence of active bleeding. Etiology of obscure bleed could still be within small bowel in nature. Current Visit: Yes Status: Acute Code(s): K92.2 - GASTROINTESTINAL HEMORRHAGE, UNSPECIFIED SNOMED Code(s): 66713468 (2) Elevated troponin Current Visit: Yes Status: Acute Code(s): R74.8 - ABNORMAL LEVELS OF OTHER SERUM ENZYMES SNOMED Code(s): 526191541 (3) Symptomatic anemia Current Visit: Yes Status: Acute Code(s): D64.9 - ANEMIA, UNSPECIFIED SNOMED Code(s): 365016738 (4) Acute blood loss anemia Current Visit: No Status: Acute Code(s): D62 - ACUTE POSTHEMORRHAGIC ANEMIA SNOMED Code(s): 060612899 Plan: 1. Anticoagulation has been discontinued. Dr. Ramos recommends CBC monitoring blood transfusions as indicated. Recommend tertiary evaluation for double balloon enteroscopy if patient continues to bleed and drop his hemoglobin. Continue with oral iron supplementation. Hemoccult stool testing. We'll follow with you. Assessment and plan of care discussed with Dr. Ramos
[2017-05-20] MEDS: MULTIVITAMINS, THERA 1 EACH TAB PO SCH (12:34)
[2017-05-20] MEDS: CHOLECALCIFEROL 1,000 UNIT TAB PO SCH (12:34)
[2017-05-20] MEDS: FERROUS SULFATE 325 MG TAB PO SCH ×2 (12:34→16:47)
--- NOTE | 2017-05-20 14:02 | P.PN ---
Subjective Progress Note Date: 05/20/17 This is a 67-year-old gentleman who follows regularly with Dr. VC Rodas in the office. He was discharged from the hospital after presenting with a GI bleed, colonoscopy and polypectomy were performed. The advised by GI service was to resume anticoagulation 2 days following. Patient came back to the hospital on this admission with some chest pain and shortness of breath, considerable lack of energy. He was found to have any moment of 5.7. Patient does have chronic atrial fibrillation and has been on Eliquis 5 twice a day along with Plavix. Patient also has history of coronary artery bypass grafting surgery and aortic valve replacement. Patient did receive blood transfusion, hemoglobin today is 7.4, sodium 136, potassium 4.1, BUN 15, creatinine 0.8. Patient denies any chest discomfort, no shortness of breath. Capsule endoscopy and process. Patient remains hemodynamically stable. 05/20/2017 Patient was seen and examined this morning, he is quite frustrated that they are unable to come up with an answer for his bleeding. He underwent an upper endoscopy with small bowel enteroscopy yesterday with no evidence of active bleeding. He did have a black stool this morning. Hemoglobin 7.3 this morning. Patient is very reluctant to resume any type of blood thinners because of the recurrent bleeding. At this time we will continue to hold all blood thinners. Objective - Vital Signs Vital signs: Vital Signs Temp 97.3 F L 05/20/17 12:00 Pulse 96 05/20/17 12:00 Resp 20 05/20/17 12:00 BP 127/60 05/20/17 12:00 Pulse Ox 96 05/20/17 12:00 Intake & Output 05/19/17 05/20/17 05/20/17 18:59 06:59 18:59 Intake Total 600 600 480 Balance 600 600 480 Weight 120.8 kg Intake: IV 600 Oral 600 480 Other: Voiding Method Urinal Urinal # Voids 1 - Exam PHYSICAL EXAMINATION: HEENT: Head is atraumatic, normocephalic. Pupils equal, round. Neck is supple. There is no elevated jugular venous pressure. HEART EXAMINATION: Heart S1, S2 normal. No murmur or gallop heard. CHEST EXAMINATION: Lungs are clear to auscultation and precussion. No chest wall tenderness is noted on palpation or with deep breathing. ABDOMEN: Soft, nontender. Bowel sounds are heard. No organomegaly noted. EXTREMITIES: 2+ peripheral pulses with no evidence of peripheral edema and no calf tenderness noted. NEUROLOGIC patient is awake, alert and oriented -3. . - Labs CBC & Chem 7: 05/20/17 05:56 05/20/17 05:56 Labs: Abnormal Lab Results - Last 24 Hours (Table) 05/20/17 05/20/17 Range/Units 05:56 05:56 RBC 2.53 L (4.30-5.90) m/uL Hgb 7.3 L (13.0-17.5) gm/dL Hct 22.7 L (39.0-53.0) % RDW 17.0 H (11.5-15.5) % Lymphocytes # 0.5 L (1.0-4.8) k/uL Glucose 101 H (74-99) mg/dL Calcium 8.0 L (8.4-10.2) mg/dL Assessment and Plan Plan: Assessment and plan #1 acute GI bleed, capsule endoscopy in progress. Plavix and Eliquis continue to be on hold. #2 acute on chronic kidney injury #3 chronic persistent atrial fibrillation #4 history of coronary artery disease with prior bypass surgery # 5 history of aortic valve replacement for severe aortic stenosis #6 hypertension #7 chronic alcohol use #8 hyperlipidemia Plan From cardiology's perspective, we will continue the patient on his current medications. We will continue to hold Eliquis and Plavix. DNP note has been reviewed, I agree with a documented findings and plan of care. Patient was seen and examined.
[2017-05-20] MEDS: SENNOSIDES 8.6 MG TAB PO SCH (20:14)
[2017-05-20] MEDS: ATORVASTATIN 80 MG TAB PO SCH (20:14)
--- NOTE | 2017-05-20 22:25 | P.PN ---
Subjective Progress Note Date: 05/18/17 Principal diagnosis: Symptomatic anemia and GI bleed Patient is a 67-year-old male with a known history of coronary artery disease , CABG and Aortic valve replacement and paroxysmal atrial fibrillation, currently on anticoagulation and Plavix admitted with symptomatic anemia. Patient had 2 units of PRBC transfusion. Patient also found have acute kidney injury and mild troponin elevation. Cardiology and nephrology has been consulted and ulnar is following at this time. Patient is being worked up for anemia and had recently EGD and colonoscopy. 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 05/17/2017 Today patient is complaining of tiredness and minimal improvement in shortness of breath. No fever no chills. GI bleed source is not clear. Otherwise patient is undergoing capsule endoscopy today. Hemoglobin is fairly stable. Otherwise denied any active rectal bleed. Last bowel movement he had was dark- colored as per patient. No headache or dizziness. No complaints of chest pain. Nephrology and pulmonary is following. Plavix and I'll increase eliquis is on hold. 05/18/2017 Patient did have significant shortness of breath this morning and was started on Lasix 20 mg twice a day. Patient did have capsule Endoscopy Today No comments of chest pain or shortness of breath. Hemoglobin at 7.4. No other acute overnight issues. All other review of systems negative except the above Objective - Vital Signs Vital signs: Vital Signs Temp 98 F 05/18/17 15:55 Pulse 86 05/18/17 15:55 Resp 16 05/18/17 15:55 BP 110/56 05/18/17 15:55 Pulse Ox 96 05/18/17 15:55 Intake & Output 05/17/17 05/18/17 05/18/17 18:59 06:59 18:59 Intake Total 240 240 Output Total 200 Balance 240 -200 240 Weight 123.5 kg Intake: Oral 240 240 Output: Urine 200 Other: Voiding Method Urinal Urinal Urinal # Voids 2 1 1 - Exam PHYSICAL EXAMINATION: Patient is lying in the bed comfortably, no acute distress, awake alert and oriented.. HEENT: Normocephalic. Neck is supple. Pupils reactive. Nostrils clear. Oral cavity is moist. Ears reveal no drainage. Neck reveals no JVD, carotid bruits, or thyromegaly. CHEST EXAMINATION: Trachea is central. Symmetrical expansion. Bilateral diminished air entry with rhonchi CARDIAC: Normal S1, S2 with no gallops. No murmurs ABDOMEN: Soft. Bowel sounds normal. No organomegaly. No abdominal bruits. Extremities: Trace edema. No clubbing or cyanosis Neurologically awake, alert, oriented x3 with well-coordinated movements. No focal deficits noted Skin: No rash or skin lesions. Psychiatric: Cooperative. Nonsuicidal Musculoskeletal: No joint swelling or deformity. Normal range of motion. - Labs CBC & Chem 7: 05/20/17 05:56 05/20/17 05:56 Labs: Abnormal Lab Results - Last 24 Hours (Table) 05/18/17 05/18/17 Range/Units 06:16 06:16 RBC 2.74 L (4.30-5.90) m/uL Hgb 7.8 L (13.0-17.5) gm/dL Hct 25.2 L (39.0-53.0) % MCHC 30.8 L (31.0-37.0) g/dL RDW 17.7 H (11.5-15.5) % Lymphocytes # 0.7 L (1.0-4.8) k/uL Sodium 136 L (137-145) mmol/L Glucose 100 H (74-99) mg/dL Assessment and Plan Assessment: Acute GI bleed with recent negative colonoscopy and EGD. Patient is getting capsule endoscopy today. Plavix and eliquis is on hold Acute blood loss anemia/symptomatic anemia due to GI bleed Acute kidney injury likely prerenal with acute blood loss. Creatinine 1.48 came down to 0.9 Persistent atrial fibrillation. On anticoagulation Chronic CHF with diastolic dysfunction ejection fraction 55-60% Coronary artery disease with history of CABG Essential hypertension Chronic alcohol abuse with 6-7 beers daily Osteoarthritis of multiple joints Peripheral vascular disease Aortic valve replacement for severe aortic stenosis Coronary artery disease with the last cath showing chronically occluded LAD and stent to circumflex Hyperlipidemia Morbid obesity with BMI 37 Acute non-Q-wave [place] possibly precipitated by anemia Plan: Patient be continued on Protonix and hold anticoagulation. Follow up renal function and hemoglobin. GI and nephrology and cardiology is following. We will follow up capsule endoscopy report. Further recommendations based on the clinical course. Monitor for alcohol withdrawal symptoms. Prognosis is guarded with multiple medical problems and comorbid conditions. Time with Patient: Greater than 30
--- NOTE | 2017-05-20 22:29 | P.PN ---
Subjective Progress Note Date: 05/19/17 Principal diagnosis: Symptomatic anemia and GI bleed Patient is a 67-year-old male with a known history of coronary artery disease , CABG and Aortic valve replacement and paroxysmal atrial fibrillation, currently on anticoagulation and Plavix admitted with symptomatic anemia. Patient had 2 units of PRBC transfusion. Patient also found have acute kidney injury and mild troponin elevation. Cardiology and nephrology has been consulted and ulnar is following at this time. Patient is being worked up for anemia and had recently EGD and colonoscopy. 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 05/17/2017 Today patient is complaining of tiredness and minimal improvement in shortness of breath. No fever no chills. GI bleed source is not clear. Otherwise patient is undergoing capsule endoscopy today. Hemoglobin is fairly stable. Otherwise denied any active rectal bleed. Last bowel movement he had was dark- colored as per patient. No headache or dizziness. No complaints of chest pain. Nephrology and pulmonary is following. Plavix and I'll increase eliquis is on hold. 05/18/2017 Patient did have significant shortness of breath this morning and was started on Lasix 20 mg twice a day. Patient did have capsule Endoscopy No comments of chest pain or shortness of breath. Hemoglobin at 7.4. No other acute overnight issues. 05/19/2017 Endoscopy Did Not Find Any Active Source of Bleeding. Patient Says That His Frustrated That Bleeding Source Could Not Be Identified. Otherwise Hemoglobin Is 7.3 and is fairly stable. GI Did enteroscopy which also did not find any active bleeding. No chest pain no shortness of breath. Continues to be on IV Lasix. No other acute overnight issues. All other review of systems negative except the above Current medications reviewed. Objective - Vital Signs Vital signs: Vital Signs Temp 98.4 F 05/19/17 16:00 Pulse 71 05/19/17 16:00 Resp 18 05/19/17 16:00 BP 115/56 05/19/17 16:00 Pulse Ox 94 L 05/19/17 16:07 Intake & Output 05/19/17 05/19/17 05/20/17 06:59 18:59 06:59 Intake Total 600 Output Total 1025 Balance -1025 600 Weight 124.2 kg Intake: IV 600 Output: Urine 1025 Other: Voiding Method Urinal - Exam PHYSICAL EXAMINATION: Patient is lying in the bed comfortably, no acute distress, awake alert and oriented.. HEENT: Normocephalic. Neck is supple. Pupils reactive. Nostrils clear. Oral cavity is moist. Ears reveal no drainage. Neck reveals no JVD, carotid bruits, or thyromegaly. CHEST EXAMINATION: Trachea is central. Symmetrical expansion. Bilateral diminished air entry. No wheezing no rhonchi CARDIAC: Normal S1, S2 with no gallops. No murmurs ABDOMEN: Soft. Bowel sounds normal. No organomegaly. No abdominal bruits. Extremities: Trace edema. No clubbing or cyanosis Neurologically awake, alert, oriented x3 with well-coordinated movements. No focal deficits noted Skin: No rash or skin lesions. Psychiatric: Cooperative. Nonsuicidal Musculoskeletal: No joint swelling or deformity. Normal range of motion. - Labs CBC & Chem 7: 05/20/17 05:56 05/20/17 05:56 Labs: Abnormal Lab Results - Last 24 Hours (Table) 05/19/17 05/19/17 Range/Units 05:56 05:56 RBC 2.63 L (4.30-5.90) m/uL Hgb 7.4 L (13.0-17.5) gm/dL Hct 24.6 L (39.0-53.0) % MCHC 30.0 L (31.0-37.0) g/dL RDW 17.4 H (11.5-15.5) % Lymphocytes # 0.7 L (1.0-4.8) k/uL Sodium 136 L (137-145) mmol/L Glucose 103 H (74-99) mg/dL Calcium 8.2 L (8.4-10.2) mg/dL Assessment and Plan Assessment: Acute GI bleed with recent negative colonoscopy and EGD. Status post She will endoscopy and enteroscopy. Plavix and eliquis is on hold Acute blood loss anemia/symptomatic anemia due to GI bleed Acute kidney injury likely prerenal with acute blood loss. Creatinine 1.48 came down to 0.9 Persistent atrial fibrillation. On anticoagulation Chronic CHF with diastolic dysfunction ejection fraction 55-60% Coronary artery disease with history of CABG Essential hypertension Chronic alcohol abuse with 6-7 beers daily Osteoarthritis of multiple joints Peripheral vascular disease Aortic valve replacement for severe aortic stenosis Coronary artery disease with the last cath showing chronically occluded LAD and stent to circumflex Hyperlipidemia Morbid obesity with BMI 37 Acute non-Q-wave [place] possibly precipitated by anemia Plan: Patient be continued on Protonix and hold anticoagulation. Follow up renal function and hemoglobin. GI and nephrology and cardiology is following. Monitor H&H. Further recommendations based on the clinical course. Monitor for alcohol withdrawal symptoms. Prognosis is guarded with multiple medical problems and comorbid conditions. Time with Patient: Greater than 30
--- NOTE | 2017-05-20 22:31 | P.PN ---
Subjective Progress Note Date: 05/20/17 Principal diagnosis: Symptomatic anemia and GI bleed Patient is a 67-year-old male with a known history of coronary artery disease , CABG and Aortic valve replacement and paroxysmal atrial fibrillation, currently on anticoagulation and Plavix admitted with symptomatic anemia. Patient had 2 units of PRBC transfusion. Patient also found have acute kidney injury and mild troponin elevation. Cardiology and nephrology has been consulted and ulnar is following at this time. Patient is being worked up for anemia and had recently EGD and colonoscopy. 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 05/17/2017 Today patient is complaining of tiredness and minimal improvement in shortness of breath. No fever no chills. GI bleed source is not clear. Otherwise patient is undergoing capsule endoscopy today. Hemoglobin is fairly stable. Otherwise denied any active rectal bleed. Last bowel movement he had was dark- colored as per patient. No headache or dizziness. No complaints of chest pain. Nephrology and pulmonary is following. Plavix and I'll increase eliquis is on hold. 05/18/2017 Patient did have significant shortness of breath this morning and was started on Lasix 20 mg twice a day. Patient did have capsule Endoscopy No comments of chest pain or shortness of breath. Hemoglobin at 7.4. No other acute overnight issues. 05/19/2017 Endoscopy Did Not Find Any Active Source of Bleeding. Patient Says That His Frustrated That Bleeding Source Could Not Be Identified. Otherwise Hemoglobin Is 7.3 and is fairly stable. GI Did enteroscopy which also did not find any active bleeding. No chest pain no shortness of breath. Continues to be on IV Lasix. No other acute overnight issues. 05/20/2017 Patient underwent extensive GI workup and bleeding source could not be identified this time. GI recommends double-balloon endoscopy at a tertiary care facility but patient does not wish to be transferred. Hemoglobin is at 7.2. Patient did have dark-colored stools yesterday again. Hemoglobin is fairly stable otherwise. No complaints of headache and dizziness. Shortness of breath is much improved now. No other acute overnight issues. Patient says that his frustrated that bleeding source was not identified. All other review of systems negative except the above Current medications reviewed. Objective - Vital Signs Vital signs: Vital Signs Temp 98.6 F 05/20/17 16:00 Pulse 94 05/20/17 16:00 Resp 20 05/20/17 16:00 BP 115/53 05/20/17 16:00 Pulse Ox 98 05/20/17 16:00 Intake & Output 05/20/17 05/20/17 05/21/17 06:59 18:59 06:59 Intake Total 600 720 Balance 600 720 Weight 120.8 kg 120.8 kg Intake: Oral 600 720 Other: Voiding Method Urinal Urinal Urinal # Voids 2 - Exam PHYSICAL EXAMINATION: Patient is lying in the bed comfortably, no acute distress, awake alert and oriented.. HEENT: Normocephalic. Neck is supple. Pupils reactive. Nostrils clear. Oral cavity is moist. Ears reveal no drainage. Neck reveals no JVD, carotid bruits, or thyromegaly. CHEST EXAMINATION: Trachea is central. Symmetrical expansion. Bilateral diminished air entry. No wheezing no rhonchi CARDIAC: Normal S1, S2 with no gallops. No murmurs ABDOMEN: Soft. Bowel sounds normal. No organomegaly. No abdominal bruits. Extremities: Trace edema. No clubbing or cyanosis Neurologically awake, alert, oriented x3 with well-coordinated movements. No focal deficits noted Skin: No rash or skin lesions. Psychiatric: Cooperative. Nonsuicidal Musculoskeletal: No joint swelling or deformity. Normal range of motion. - Labs CBC & Chem 7: 05/20/17 05:56 05/20/17 05:56 Labs: Abnormal Lab Results - Last 24 Hours (Table) 05/20/17 05/20/17 Range/Units 05:56 05:56 RBC 2.53 L (4.30-5.90) m/uL Hgb 7.3 L (13.0-17.5) gm/dL Hct 22.7 L (39.0-53.0) % RDW 17.0 H (11.5-15.5) % Lymphocytes # 0.5 L (1.0-4.8) k/uL Glucose 101 H (74-99) mg/dL Calcium 8.0 L (8.4-10.2) mg/dL Assessment and Plan Assessment: Acute GI bleed with recent negative colonoscopy and EGD. Status post capsule endoscopy and enteroscopy. Plavix and eliquis is on hold Acute blood loss anemia/symptomatic anemia due to GI bleed Acute kidney injury likely prerenal with acute blood loss. Creatinine 1.48 came down to 0.9 Persistent atrial fibrillation. On anticoagulation Chronic CHF with diastolic dysfunction ejection fraction 55-60% Coronary artery disease with history of CABG Essential hypertension Chronic alcohol abuse with 6-7 beers daily Osteoarthritis of multiple joints Peripheral vascular disease Aortic valve replacement for severe aortic stenosis Coronary artery disease with the last cath showing chronically occluded LAD and stent to circumflex Hyperlipidemia Morbid obesity with BMI 37 Acute non-Q-wave [place] possibly precipitated by anemia Plan: Patient be continued on Protonix and hold anticoagulation. Follow up renal function and hemoglobin. GI and nephrology and cardiology is following. Monitor H&H. Further recommendations based on the clinical course. Monitor for alcohol withdrawal symptoms. Prognosis is guarded with multiple medical problems and comorbid conditions. Time with Patient: Greater than 30
[2017-05-21] MEDS: FERROUS SULFATE 325 MG TAB PO SCH ×2 (08:23→16:48)
[2017-05-21] MEDS: AMIODARONE 200 MG TAB PO SCH (08:23)
[2017-05-21] MEDS: GABAPENTIN 400 MG CAP PO SCH ×3 (08:24→21:45)
[2017-05-21] MEDS: PANTOPRAZOLE 40 MG/10 ML VIAL IVP SCH (08:24)
[2017-05-21] MEDS: FUROSEMIDE 10 MG/ML 2 ML VIAL IV SCH ×2 (08:24→21:46)
[2017-05-21] MEDS: ISOSORBIDE MONONITRATE ER 15 MG TAB PO SCH (08:24)
[2017-05-21] MEDS: METOPROLOL TARTRATE 25 MG TAB PO SCH ×2 (08:24→21:45)
[2017-05-21] MEDS: POTASSIUM CHLORIDE ER 20 MEQ TAB.ER PO SCH ×2 (08:24→21:45)
--- NOTE | 2017-05-21 08:33 | P.PN ---
Subjective Progress Note Date: 05/21/17 Principal diagnosis: GI bleed Admitted with acute GI bleed abnormal capsule endoscopy. Patient underwent upper endoscopy with small bowel enteroscopy reported no evidence of active bleeding. Passed a dark colored bowel movement yesterday morning; Hemoccult negative. CBC pending. Denies abdominal pain. Objective - Vital Signs Vital signs: Vital Signs Temp 97.2 F L 05/21/17 06:06 Pulse 94 05/21/17 06:06 Resp 16 05/21/17 06:06 BP 121/54 05/21/17 06:06 Pulse Ox 94 L 05/21/17 06:26 Intake & Output 05/20/17 05/21/17 05/21/17 18:59 06:59 18:59 Intake Total 720 450 Balance 720 450 Weight 120.8 kg Intake: Oral 720 450 Other: Voiding Method Urinal Urinal # Voids 2 1 - Exam General appearance: The patient is alert, oriented, in no acute distress. HET: Head is normocephalic and atraumatic. Pupils are equal and reactive. Oropharynx is clear without lesions. Neck: Supple without lymphadenopathy. Trachea midline. Heart: S1 S2. Lungs: No crackles or wheezes are heard. Abdomen: Soft, nontender, nondistended with bowel sounds. No peritoneal signs. No palpable organomegaly or masses. Extremities: Normal skin color and turgor. No cyanosis, rash, ulceration, clubbing, or edema. Radial and pedal pulses are 2/4 bilaterally. Neurological: No focal deficits. Strength and sensation are grossly intact. - Labs CBC & Chem 7: 05/20/17 05:56 05/20/17 05:56 Assessment and Plan (1) GI bleed Narrative/Plan: 67-year-old gentleman admitted with symptomatic acute blood loss anemia with positive stool Hemoccult testing and elevated troponin level with a history of CAD AVR maintained on anticoagulation Eliquis/Plavix status post recent EGD colonoscopy evaluation with findings of short segment of Zhu's esophagus colonic diverticulosis with polypectomy 6. Status post capsule endoscopy with abnormalities showing angiectasia in the proximal small bowel with active bleeding status post recent surveillance EGD/enteroscopy with no evidence of active bleeding. Etiology of obscure bleed could still be within small bowel in nature. Current Visit: Yes Status: Acute Code(s): K92.2 - GASTROINTESTINAL HEMORRHAGE, UNSPECIFIED SNOMED Code(s): 27576349 (2) Elevated troponin Current Visit: Yes Status: Acute Code(s): R74.8 - ABNORMAL LEVELS OF OTHER SERUM ENZYMES SNOMED Code(s): 758758975 (3) Symptomatic anemia Current Visit: Yes Status: Acute Code(s): D64.9 - ANEMIA, UNSPECIFIED SNOMED Code(s): 399435279 (4) Acute blood loss anemia Current Visit: No Status: Acute Code(s): D62 - ACUTE POSTHEMORRHAGIC ANEMIA SNOMED Code(s): 680948775 Plan: 1. Anticoagulation has been discontinued. Dr. Ramos recommends CBC monitoring blood transfusions as indicated. Recommend tertiary evaluation for double balloon enteroscopy if patient is recurrent bleeding or precipitous drop his hemoglobin. Continue with oral iron supplementation. Hemoccult stool testing reviewed. CBC pending. Discharge per medicine. Assessment and plan of care discussed with Dr. Ramos
[2017-05-21 09:58] LABS: Anisocytosis Slight; Basophils % (A) 0 %; Eosinophils # (A) 0.1 k/uL (0-0.7); Eosinophils % (A) 2 %; HCT 25.9 % (39.0-53.0); HGB 8.2 gm/dL (13.0-17.5); Hypochromasia Moderate; Lymphocytes # (A) 0.6 k/uL (1.0-4.8); Lymphocytes % (A) 10 %; MCH 28.2 pg (25.0-35.0); MCHC 31.5 g/dL (31.0-37.0); MCV 89.6 fL (80.0-100.0); Mean Platelet Volume 7.4; Monocytes # (A) 0.6 k/uL (0-1.0); Monocytes % (A) 10 %; Neutrophils # (A) 4.6 k/uL (1.3-7.7); Neutrophils % (A) 74 %; Platelet Count 264 k/uL (150-450); Poikilocytosis Slight; RBC 2.89 m/uL (4.30-5.90); RDW 16.7 % (11.5-15.5); WBC 6.1 k/uL (3.8-10.6)
[2017-05-21] MEDS: MULTIVITAMINS, THERA 1 EACH TAB PO SCH (11:50)
[2017-05-21] MEDS: CHOLECALCIFEROL 1,000 UNIT TAB PO SCH (11:50)
[2017-05-21] MEDS ORDERED: MORPHINE ORAL SOLN 10 MG/5 ML CUP PO PRN (17:15)
[2017-05-21] MEDS: SENNOSIDES 8.6 MG TAB PO SCH (21:45)
[2017-05-21] MEDS: ATORVASTATIN 80 MG TAB PO SCH (21:45)
[2017-05-22 07:43] VITALS: BP 130/81; RESP 18; TEMP 97
[2017-05-22] MEDS: METOPROLOL TARTRATE 25 MG TAB PO SCH (08:22)
[2017-05-22] MEDS: ISOSORBIDE MONONITRATE ER 15 MG TAB PO SCH (08:22)
[2017-05-22] MEDS: GABAPENTIN 400 MG CAP PO SCH (08:22)
[2017-05-22] MEDS: PANTOPRAZOLE 40 MG/10 ML VIAL IVP SCH (08:22)
[2017-05-22] MEDS: FUROSEMIDE 10 MG/ML 2 ML VIAL IV SCH (08:22)
[2017-05-22] MEDS: POTASSIUM CHLORIDE ER 20 MEQ TAB.ER PO SCH (08:22)
[2017-05-22] MEDS: CHOLECALCIFEROL 1,000 UNIT TAB PO SCH (08:22)
[2017-05-22] MEDS: FERROUS SULFATE 325 MG TAB PO SCH (08:22)
[2017-05-22] MEDS: MULTIVITAMINS, THERA 1 EACH TAB PO SCH (08:22)
[2017-05-22] MEDS: AMIODARONE 200 MG TAB PO SCH (08:22)
[2017-05-22 09:37] VITALS: PULSE 66
[2017-05-22 10:31] VITALS: BMI 36.1
--- NOTE | 2017-05-22 11:03 | P.PN ---
Subjective Progress Note Date: 05/22/17 Principal diagnosis: GI bleed Admitted with acute GI bleed abnormal capsule endoscopy. Patient underwent upper endoscopy with small bowel enteroscopy reported no evidence of active bleeding. Repeat Hemoccult negative. Hemoglobin yesterday 8.2 repeat CBC this morning is pending. Denies abdominal pain. Objective - Vital Signs Vital signs: Vital Signs Temp 97.0 F L 05/22/17 07:00 Pulse 66 05/22/17 08:00 Resp 18 05/22/17 08:00 BP 130/81 05/22/17 07:00 Pulse Ox 91 L 05/22/17 07:00 Intake & Output 05/21/17 05/22/17 05/22/17 18:59 06:59 18:59 Weight 120.8 kg Other: Voiding Method Urinal # Voids 1 2 # Bowel Movements 1 - Exam General appearance: The patient is alert, oriented, in no acute distress. HET: Head is normocephalic and atraumatic. Pupils are equal and reactive. Oropharynx is clear without lesions. Neck: Supple without lymphadenopathy. Trachea midline. Heart: S1 S2. Lungs: No crackles or wheezes are heard. Abdomen: Soft, nontender, nondistended with bowel sounds. No peritoneal signs. No palpable organomegaly or masses. Extremities: Normal skin color and turgor. No cyanosis, rash, ulceration, clubbing, or edema. Radial and pedal pulses are 2/4 bilaterally. Neurological: No focal deficits. Strength and sensation are grossly intact. - Labs CBC & Chem 7: 05/21/17 08:14 05/20/17 05:56 Assessment and Plan (1) GI bleed Narrative/Plan: 67-year-old gentleman admitted with symptomatic acute blood loss anemia with positive stool Hemoccult testing and elevated troponin level with a history of CAD AVR maintained on anticoagulation Eliquis/Plavix status post recent EGD colonoscopy evaluation with findings of short segment of Zhu's esophagus colonic diverticulosis with polypectomy 6. Status post capsule endoscopy with abnormalities showing angiectasia in the proximal small bowel with active bleeding status post recent surveillance EGD/enteroscopy with no evidence of active bleeding. Etiology of obscure bleed could still be within small bowel in nature. Status: Acute Code(s): K92.2 - GASTROINTESTINAL HEMORRHAGE, UNSPECIFIED SNOMED Code(s): 51568426 (2) Elevated troponin Status: Acute Code(s): R74.8 - ABNORMAL LEVELS OF OTHER SERUM ENZYMES SNOMED Code(s): 341411567 (3) Symptomatic anemia Status: Acute Code(s): D64.9 - ANEMIA, UNSPECIFIED SNOMED Code(s): 535522027 (4) Acute blood loss anemia Status: Acute Code(s): D62 - ACUTE POSTHEMORRHAGIC ANEMIA SNOMED Code(s): 546859063 Plan: 1. Anticoagulation has been discontinued. Dr. Ramos recommends CBC monitoring blood transfusions as indicated. Recommend tertiary evaluation for double balloon enteroscopy if patient is recurrent bleeding or precipitous drop his hemoglobin. Discharge per medicine. Assessment and plan of care discussed with Dr. Ramos
--- NOTE | 2017-05-22 22:36 | P.PN ---
Subjective Progress Note Date: 05/21/17 Principal diagnosis: Symptomatic anemia and GI bleed Patient is a 67-year-old male with a known history of coronary artery disease , CABG and Aortic valve replacement and paroxysmal atrial fibrillation, currently on anticoagulation and Plavix admitted with symptomatic anemia. Patient had 2 units of PRBC transfusion. Patient also found have acute kidney injury and mild troponin elevation. Cardiology and nephrology has been consulted and ulnar is following at this time. Patient is being worked up for anemia and had recently EGD and colonoscopy. 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 05/17/2017 Today patient is complaining of tiredness and minimal improvement in shortness of breath. No fever no chills. GI bleed source is not clear. Otherwise patient is undergoing capsule endoscopy today. Hemoglobin is fairly stable. Otherwise denied any active rectal bleed. Last bowel movement he had was dark- colored as per patient. No headache or dizziness. No complaints of chest pain. Nephrology and pulmonary is following. Plavix and I'll increase eliquis is on hold. 05/18/2017 Patient did have significant shortness of breath this morning and was started on Lasix 20 mg twice a day. Patient did have capsule Endoscopy No comments of chest pain or shortness of breath. Hemoglobin at 7.4. No other acute overnight issues. 05/19/2017 Endoscopy Did Not Find Any Active Source of Bleeding. Patient Says That His Frustrated That Bleeding Source Could Not Be Identified. Otherwise Hemoglobin Is 7.3 and is fairly stable. GI Did enteroscopy which also did not find any active bleeding. No chest pain no shortness of breath. Continues to be on IV Lasix. No other acute overnight issues. 05/20/2017 Patient underwent extensive GI workup and bleeding source could not be identified this time. GI recommends double-balloon endoscopy at a tertiary care facility but patient does not wish to be transferred. Hemoglobin is at 7.2. Patient did have dark-colored stools yesterday again. Hemoglobin is fairly stable otherwise. No complaints of headache and dizziness. Shortness of breath is much improved now. No other acute overnight issues. Patient says that his frustrated that bleeding source was not identified. 05/21/2017 Patient denied any complaints of chest pain or shortness of breath. Continued on Lasix will be changed to by mouth. Otherwise hemoglobin is stable and actually improved to 8.2 today. Patient denied any dark-colored stools otherwise. GI is not planning for any procedure at this time. Anticipate discharge in next 24 hours. All other review of systems negative except the above Current medications reviewed. Objective - Vital Signs Vital signs: Vital Signs Temp 97.0 F L 05/21/17 15:00 Pulse 86 05/21/17 15:00 Resp 18 05/21/17 15:00 BP 142/76 05/21/17 15:00 Pulse Ox 97 05/21/17 15:00 Intake & Output 05/21/17 05/21/17 05/22/17 06:59 18:59 06:59 Intake Total 450 Balance 450 Weight 120.8 kg Intake: Oral 450 Other: Voiding Method Urinal # Voids 1 1 # Bowel Movements 1 - Exam PHYSICAL EXAMINATION: Patient is lying in the bed comfortably, no acute distress, awake alert and oriented.. HEENT: Normocephalic. Neck is supple. Pupils reactive. Nostrils clear. Oral cavity is moist. Ears reveal no drainage. Neck reveals no JVD, carotid bruits, or thyromegaly. CHEST EXAMINATION: Trachea is central. Symmetrical expansion. Bilateral diminished air entry. No wheezing no rhonchi CARDIAC: Normal S1, S2 with no gallops. No murmurs ABDOMEN: Soft. Bowel sounds normal. No organomegaly. No abdominal bruits. Extremities: Trace edema. No clubbing or cyanosis Neurologically awake, alert, oriented x3 with well-coordinated movements. No focal deficits noted Skin: No rash or skin lesions. Psychiatric: Cooperative. Nonsuicidal Musculoskeletal: No joint swelling or deformity. Normal range of motion. - Labs CBC & Chem 7: 05/21/17 08:14 05/20/17 05:56 Labs: Abnormal Lab Results - Last 24 Hours (Table) 05/21/17 Range/Units 08:14 RBC 2.89 L (4.30-5.90) m/uL Hgb 8.2 L (13.0-17.5) gm/dL Hct 25.9 L (39.0-53.0) % RDW 16.7 H (11.5-15.5) % Lymphocytes # 0.6 L (1.0-4.8) k/uL Assessment and Plan Assessment: Acute GI bleed with recent negative colonoscopy and EGD. Status post capsule endoscopy and enteroscopy. Plavix and eliquis is on hold Acute blood loss anemia/symptomatic anemia due to GI bleed Acute kidney injury likely prerenal with acute blood loss. Creatinine 1.48 came down to 0.9 Persistent atrial fibrillation. On anticoagulation Chronic CHF with diastolic dysfunction ejection fraction 55-60% Coronary artery disease with history of CABG Essential hypertension Chronic alcohol abuse with 6-7 beers daily Osteoarthritis of multiple joints Peripheral vascular disease Aortic valve replacement for severe aortic stenosis Coronary artery disease with the last cath showing chronically occluded LAD and stent to circumflex Hyperlipidemia Morbid obesity with BMI 37 Acute non-Q-wave ME possibly precipitated by anemia Plan: Patient be continued on Protonix and hold anticoagulation. Follow up renal function and hemoglobin. GI and nephrology and cardiology is following. Monitor H&H. Further recommendations based on the clinical course. Monitor for alcohol withdrawal symptoms. Prognosis is guarded with multiple medical problems and comorbid conditions. Time with Patient: Greater than 30
--- NOTE | 2017-05-23 12:56 | CDI ---
Last Revision, February 2017 Documentation Clarification Form Date: 05/23/17 From: Richa Kelvin Taylor Loco, Enroute Controller between 8:30 am & 5 pm Nadja Admit Date: 05/15/2017 6:47:00 PM Patient Name: Catracho Brady Visit Number: [id number] Discharge Date: 05/22/17 ATTENTION: The Clinical Documentation Specialists (CDI) and [facility] Coding Staff appreciate your assistance in clarifying documentation. Please respond to the clarification below the line at the bottom and electronically sign. The CDI & [facility] Coding staff will review the response and follow-up if needed. Please note: Queries are made part of the Legal Health Record. If you have any questions, please contact the author of this message via ITS. Dr. Jin Partida Chronic kidney injury is documented in 05/19, 05/20 PNs by Milton Marrero. BUN: 45/40/23/18/15/17 CR: 1.48/1.40/.92/.83/.86/.87 GFR: 47/50/60/60/60/60 In order to capture the severity of condition, please clarify if the condition signifies: No CKD CKD Stage 1 (GFR > 90) CKD Stage 2 (GFR 60-89) CKD Stage 3 (GFR 30-59) CKD Stage 4 (GFR 15-29) CKD Stage 5 (GFR <15) ESRD Other, please specify Unable to determine Please continue to document in your progress notes and discharge summary in order to capture severity of illness and risk of mortality. Include clinical findings that support your diagnosis. MTDD
--- NOTE | 2017-05-24 19:25 | DS ---
DISCHARGE SUMMARY FINAL DIAGNOSES: 1. Acute GI bleed from angiectasia in the small bowel. 2. Acute severe blood loss anemia requiring blood transfusion. 3. Chronic congestive heart failure from diastolic dysfunction. Ejection fraction 55% to 60%, underlying coronary artery disease. 4. Persistent atrial fibrillation. Patient was on Eliquis, now discontinued. 5. Essential hypertension. 6. Aortic valve replacement for severe aortic stenosis. 7. Peripheral artery disease. 8. Primary osteoarthritis in multiple joints bilateral. 9. Coronary artery disease with last cardiac catheterization showing chronically occluded LAD and stent to the circumflex, patent. 10.Hyperlipidemia. 11.Obesity; BMI 37. 12.Acute blood loss anemia, symptomatic, patient requiring blood transfusion. 13.Troponin leak likely from hemodynamic mismatch. No evidence of acute coronary syndrome. 14.Acute renal failure from patient being on diuretics. HOSPITAL COURSE: This is a patient with known coronary artery disease, presented with severe anemia. Hemoglobin was down to 5.8. The patient did receive a total of 3 units of blood. Hemoglobin at the time of discharge was 8.2. The patient not too long ago was in the hospital, at that time he did go undergo colonoscopy and was found to have diverticulosis and there is a short segment of Zhu's esophagus also found. Hence patient was discharged last admission on Eliquis and Plavix. The patient presented with black stools and hemoglobin of 5.8. The patient did have a small bowel capsule study done which did show bleeding angiectasia. This is followed by enteroscopy that came back to be negative. On the day of discharge I spoke to Dorothy and patient can go back on the aspirin. Currently Plavix and Eliquis remain to be held. Also spoke to Jenn from Cardiology and [place] to send the patient home on aspirin. This was also discussed with the patient. Also told the patient to hold off the iron supplements at the present time. Hemoglobin at the time of discharge is 8.2. On exam, lungs slightly decreased breath sounds. Cardiovascular, 1st and second sounds normal. The patient was told not to drink alcohol at all. The patient's occult stool is actually negative by the time of discharge. Discussion and discharge planning more than 35 minutes. DISCHARGE MEDICATIONS: 1. Lipitor 80 mg at bedtime. 2. Vitamin D3, 2000 units p.o. daily. 3. Lopressor 25 p.o. b.i.d. 4. Centrum Silver 1 tab p.o. daily. 5. Fish oil 1000 mg p.o. daily. 6. Nitrostat 0.4 sublingual every 5 p.r.n. 7. Amiodarone 200 mg p.o. daily. 8. Neurontin 4 mg p.o. t.i.d. 9. [place] 5 one tab every 6 hours p.r.n. 10.Aldactone 25 mg p.o. daily. 11.Aspirin 81 mg p.o. daily. 12.Lasix 40 mg p.o. daily. 13.Imdur ER 50 mg p.o. daily. 14.Potassium 20 mEq p.o. daily. FOLLOWUP: 1. Follow up with Dr. Ramos in 2 weeks. 2. Follow up with Dr. Kessler in 3 days. 3. Follow up with Dr. Gregorio Rodas in 1 week. LABS: CBC and BMP in 1 week. Discharge planning more than 35 minutes. MMODL / IJN: [id number] /
== END 2017-05-22 12:13 | disposition home health service (06) | DRG 377 ==
LOC: EC 16:52 → 6ICU 18:47 → 6SEL 05-16 21:28 → 4MS4W 05-20 18:46
PROVIDERS: ADMIT Hospitalist; ATTEND Hospitalist
PROC: 30230N1 Transfusion of Nonautologous Red Blood Cells into Peripheral Vein, Open Approach (ICD-10-PCS; principal; 2017-05-15)
PROC: 0DJ07ZZ Inspection of Upper Intestinal Tract, Via Natural or Artificial Opening (ICD-10-PCS; 2017-05-17)
PROC: 0DJ08ZZ Inspection of Upper Intestinal Tract, Via Natural or Artificial Opening Endoscopic (ICD-10-PCS; 2017-05-19)
DX: K55.21 Angiodysplasia of colon with hemorrhage (principal); I21.4 Non-ST elevation (NSTEMI) myocardial infarction; N17.9 Acute kidney failure, unspecified; I11.0 Hypertensive heart disease with heart failure; I95.9 Hypotension, unspecified; D62 Acute posthemorrhagic anemia; I50.32 Chronic diastolic (congestive) heart failure; E66.01 Morbid (severe) obesity due to excess calories; I48.1 Persistent atrial fibrillation; D50.0 Iron deficiency anemia secondary to blood loss (chronic); I73.9 Peripheral vascular disease, unspecified; E78.5 Hyperlipidemia, unspecified; M19.91 Primary osteoarthritis, unspecified site; I25.2 Old myocardial infarction; G89.29 Other chronic pain; M54.9 Dorsalgia, unspecified; F10.10 Alcohol abuse, uncomplicated; K57.30 Diverticulosis of large intestine without perforation or abscess without bleeding; K29.60 Other gastritis without bleeding; K22.70 Barrett's esophagus without dysplasia; I25.10 Atherosclerotic heart disease of native coronary artery without angina pectoris; Z95.2 Presence of prosthetic heart valve; Z68.37 Body mass index [BMI] 37.0-37.9, adult; Z79.01 Long term (current) use of anticoagulants; Z79.02 Long term (current) use of antithrombotics/antiplatelets; Z79.899 Other long term (current) drug therapy; Z87.891 Personal history of nicotine dependence; Z95.1 Presence of aortocoronary bypass graft; Z85.828 Personal history of other malignant neoplasm of skin
CPT/HCPCS: 36415; 43235; 71045; 71046; 80048; 80053; 82272; 82550; 82553; 83735; 84100; 84484; 85025; 85379; 85610; 85730; 86850; 86900; 86901; 86920; 91110; 93005; 94640; 94760; 96360; 99291

== ENCOUNTER → 2017-09-24 | Outpatient (CLI) | payer MEDICARE ==
[2017-09-24 14:31] VITALS: BP 164/67; PULSE 51; RESP 16
--- NOTE | 2017-09-25 11:01 | P.PAINPG ---
Subjective Progress Note Date: 09/24/17 This is follow-up visit for this patient with a history of severe and chronic low back pain secondary to lumbar degenerative disc diseases , lumbar spondylosis with facet arthropathy, We have done interventional pain procedures diagnostic medial branch block lumbar area, was done in August 2016, patient gets more than 70% decrease in his low back pain On the second diagnostic medial branch block was not done because patient had vascular disease and he has to be placed onto a blood thinner ELIQUIS and Plavix Patients currently on Neurontin 400 mg 3 times a day, and [place] 5/325 every 6 hours Patient denies any side effects of the medication, denies excessive drowsiness or sleepiness, denies suicidal ideation, and reports that the current pain medication is helping to control the pain and improve activity of daily living Patient denies any motor or sensory deficit , patient denies any fever or night sweats, denies any change in the bowel movements or urination Physical Examinations : 1-Constitutional : Cooperative , not in acute distress . 2- Musculoskeltal : exams of the Lumber spine =motor strength lower extremities ,thigh and legs .5/5 deep tendon reflexes : normal Knee Jerk , normal ankle Jerk . lumber facet Loading Test positive strait leg raising test positive at 30 degree , RT ,LT , Fabere test positive RT and positive LT . Range of motion: Range of motion in flexion of the lumbar spine 30 degrees Range of motion range of motion of extension of the lumbar spine 10 Assessment and plan = Chronic low back pain secondary to lumbar degenerative disc disease , lumbar spondylosis with facet arthropathy without myelopathy Status post diagnostic medial branch block 1, and in August 2016 patient gets more than 70% decrease in his low back pain, and we did not do the second diagnostic medial branch block Because patient is to be placed and 2+ in her Plavix and ELIQUIS , currently patient is off Plavix, he is receiving only ELIQUIS , check with the traffic routing engineer to get approval to hold liquids for 2 days before the procedure And if he appropriate then will proceed with the diagnostic medial branch block ( 2 nd ) , and if he gets good relief then we will proceed with the radiofrequency ablation of the medial branch lumbar area Objective - Labs CBC & Chem 7: 09/24/17 15:15 Labs: Abnormal Lab Results - Last 24 Hours (Table) 09/24/17 Range/Units 15:15 RBC 3.21 L (4.30-5.90) m/uL Hgb 11.1 L (13.0-17.5) gm/dL Hct 33.6 L (39.0-53.0) % MCV 104.5 H (80.0-100.0) fL RDW 16.5 H (11.5-15.5) % PQRS Measure Charge Sheet Measure #130: Documentation of Current Meds in Medical Chart: Patient's medications documented in chart Measure #226: Tobacco Use: Screen & Cessation Intervention: Pt not a tobacco user Measure #111: Pneumonia Vaccination: Pneumococcal vaccine administered or previously received Measure #47: Advance Care Plan: Advance care planning discussed & documented, plan or surrogate given Measure #412: Opioid Treatment Agreement: No documentation of signed opioid treatment agreement Measure #408: Opioid Therapy Follow-up Evaluation: Patient had NO f/u eval minimum every 3 months during opioid therapy Measure #317: Preventitive Care & Scrn High Bld Press & F/U: Pre-hypertensive or hypertensive BP documented, pt will f/u with PCP Measure #128: Body Mass Index (BMI) Screening & Follow-up: BMI documented ABOVE normal parameters - f/u documented Measure #131: Pain Assessment & Follow-up: Pain positive & plan documented, Follow-up scheduled Measure #431: Unhealthy Alcohol Use Preventative Care & Scrn: Patient not identified as an unhealthy alcohol user PQRS Narrative: Smoking Status Former smoker Hx Alcohol Use (MH) Yes: 6 PK BEER/DAY Home Medications: Ambulatory Orders Atorvastatin [Lipitor] 80 mg PO HS 10/06/14 Metoprolol Tartrate [Lopressor] 25 mg PO BID 10/06/14 Multivit-Min/FA/Lycopene/Lut [Centrum Silver Tablet] 1 tab PO DAILY 10/06/14 [place]-3 Fatty Acids/Fish Oil [Fish Oil 1,000 mg Softgel] 1 cap PO DAILY Nitroglycerin Sl Tabs [Nitrostat] 0.4 mg SUBLINGUAL Q5M PRN #25 tab 05/14/15 Amiodarone HCl [Pacerone] 200 mg PO DAILY 06/27/16 Gabapentin [Neurontin] 400 mg PO TID #90 cap 10/08/16 Hydrocodone/Acetaminophen [Hydrocodon-Acetaminophen 5-325] 1 tab PO Q6HR PRN 04/03 Spironolactone [Aldactone] 25 mg PO DAILY 05/15/17 Furosemide [Lasix] 40 mg PO DAILY #30 tablet 05/22/17 Isosorbide Mononitrate ER [Imdur] 15 mg PO DAILY dose 05/22/17 Potassium Chloride ER [K-Dur 20] 20 meq PO DAILY #60 tab.er.prt 05/22/17 ALPRAZolam [Xanax] 0.5 mg PO DAILY PRN 09/24/17 Apixaban [Eliquis] 5 mg PO BID 09/24/17 Ferrous Sulfate [Feosol] 325 mg PO TID 09/24/17 Metolazone [Zaroxolyn] 2.5 mg PO DAILY 09/24/17 Ranitidine HCl [Zantac] 150 mg PO BID 09/24/17 Controlled Substance Measures - Controlled Substance Measures Is patient prescribed a controlled substance at discharge?: No When asked, does pt state using other controlled substances?: No If prescribed controlled substance>3 days was MAPS reviewed?: No If Rx opioid, was Start Talking consent form obtained?: No If opioid is for acute pain is fill amount 7 days or less?: No Was information provided regarding opioid addiction?: No
== END | disposition home or self-care (01) ==
LOC: PNWHC3 13:05
PROVIDERS: ATTEND Specialist
DX: G89.29 Other chronic pain (principal); M54.5 Low back pain; M51.36 Other intervertebral disc degeneration, lumbar region; M47.816 Spondylosis without myelopathy or radiculopathy, lumbar region; M46.86 Other specified inflammatory spondylopathies, lumbar region; I99.9 Unspecified disorder of circulatory system; Z79.891 Long term (current) use of opiate analgesic; Z79.02 Long term (current) use of antithrombotics/antiplatelets; Z87.891 Personal history of nicotine dependence
CPT/HCPCS: 99211

== ENCOUNTER → 2017-09-24 | Outpatient (CLI) | payer MEDICARE ==
[2017-09-24 15:32] LABS: Anisocytosis Slight; HCT 33.6 % (39.0-53.0); HGB 11.1 gm/dL (13.0-17.5); MCH 34.7 pg (25.0-35.0); MCHC 33.2 g/dL (31.0-37.0); MCV 104.5 fL (80.0-100.0); Macrocytosis Moderate; Mean Platelet Volume 7.3; Platelet Count 183 k/uL (150-450); RBC 3.21 m/uL (4.30-5.90); RDW 16.5 % (11.5-15.5); WBC 6.7 k/uL (3.8-10.6)
--- NOTE | 2017-09-25 11:01 | P.PAINPG ---
Subjective Progress Note Date: 09/24/17 This is follow-up visit for this patient with a history of severe and chronic low back pain secondary to lumbar degenerative disc diseases , lumbar spondylosis with facet arthropathy, We have done interventional pain procedures diagnostic medial branch block lumbar area, was done in August 2016, patient gets more than 70% decrease in his low back pain On the second diagnostic medial branch block was not done because patient had vascular disease and he has to be placed onto a blood thinner ELIQUIS and Plavix Patients currently on Neurontin 400 mg 3 times a day, and [place] 5/325 every 6 hours Patient denies any side effects of the medication, denies excessive drowsiness or sleepiness, denies suicidal ideation, and reports that the current pain medication is helping to control the pain and improve activity of daily living Patient denies any motor or sensory deficit , patient denies any fever or night sweats, denies any change in the bowel movements or urination Physical Examinations : 1-Constitutional : Cooperative , not in acute distress . 2- Musculoskeltal : exams of the Lumber spine =motor strength lower extremities ,thigh and legs .5/5 deep tendon reflexes : normal Knee Jerk , normal ankle Jerk . lumber facet Loading Test positive strait leg raising test positive at 30 degree , RT ,LT , Fabere test positive RT and positive LT . Range of motion: Range of motion in flexion of the lumbar spine 30 degrees Range of motion range of motion of extension of the lumbar spine 10 Assessment and plan = Chronic low back pain secondary to lumbar degenerative disc disease , lumbar spondylosis with facet arthropathy without myelopathy Status post diagnostic medial branch block 1, and in August 2016 patient gets more than 70% decrease in his low back pain, and we did not do the second diagnostic medial branch block Because patient is to be placed and 2+ in her Plavix and ELIQUIS , currently patient is off Plavix, he is receiving only ELIQUIS , check with the stay cutter to get approval to hold liquids for 2 days before the procedure And if he appropriate then will proceed with the diagnostic medial branch block ( 2 nd ) , and if he gets good relief then we will proceed with the radiofrequency ablation of the medial branch lumbar area Objective - Labs CBC & Chem 7: 09/24/17 15:15 Labs: Abnormal Lab Results - Last 24 Hours (Table) 09/24/17 Range/Units 15:15 RBC 3.21 L (4.30-5.90) m/uL Hgb 11.1 L (13.0-17.5) gm/dL Hct 33.6 L (39.0-53.0) % MCV 104.5 H (80.0-100.0) fL RDW 16.5 H (11.5-15.5) % PQRS Measure Charge Sheet Measure #130: Documentation of Current Meds in Medical Chart: Patient's medications documented in chart Measure #226: Tobacco Use: Screen & Cessation Intervention: Pt not a tobacco user Measure #111: Pneumonia Vaccination: Pneumococcal vaccine administered or previously received Measure #47: Advance Care Plan: Advance care planning discussed & documented, plan or surrogate given Measure #412: Opioid Treatment Agreement: No documentation of signed opioid treatment agreement Measure #408: Opioid Therapy Follow-up Evaluation: Patient had NO f/u eval minimum every 3 months during opioid therapy Measure #317: Preventitive Care & Scrn High Bld Press & F/U: Pre-hypertensive or hypertensive BP documented, pt will f/u with PCP Measure #128: Body Mass Index (BMI) Screening & Follow-up: BMI documented ABOVE normal parameters - f/u documented Measure #131: Pain Assessment & Follow-up: Pain positive & plan documented, Follow-up scheduled Measure #431: Unhealthy Alcohol Use Preventative Care & Scrn: Patient not identified as an unhealthy alcohol user PQRS Narrative: Smoking Status Former smoker Hx Alcohol Use (MH) Yes: 6 PK BEER/DAY Home Medications: Ambulatory Orders Atorvastatin [Lipitor] 80 mg PO HS 10/06/14 Metoprolol Tartrate [Lopressor] 25 mg PO BID 10/06/14 Multivit-Min/FA/Lycopene/Lut [Centrum Silver Tablet] 1 tab PO DAILY 10/06/14 [place]-3 Fatty Acids/Fish Oil [Fish Oil 1,000 mg Softgel] 1 cap PO DAILY Nitroglycerin Sl Tabs [Nitrostat] 0.4 mg SUBLINGUAL Q5M PRN #25 tab 05/14/15 Amiodarone HCl [Pacerone] 200 mg PO DAILY 06/27/16 Gabapentin [Neurontin] 400 mg PO TID #90 cap 10/08/16 Hydrocodone/Acetaminophen [Hydrocodon-Acetaminophen 5-325] 1 tab PO Q6HR PRN 04/03 Spironolactone [Aldactone] 25 mg PO DAILY 05/15/17 Furosemide [Lasix] 40 mg PO DAILY #30 tablet 05/22/17 Isosorbide Mononitrate ER [Imdur] 15 mg PO DAILY dose 05/22/17 Potassium Chloride ER [K-Dur 20] 20 meq PO DAILY #60 tab.er.prt 05/22/17 ALPRAZolam [Xanax] 0.5 mg PO DAILY PRN 09/24/17 Apixaban [Eliquis] 5 mg PO BID 09/24/17 Ferrous Sulfate [Feosol] 325 mg PO TID 09/24/17 Metolazone [Zaroxolyn] 2.5 mg PO DAILY 09/24/17 Ranitidine HCl [Zantac] 150 mg PO BID 09/24/17 Controlled Substance Measures - Controlled Substance Measures Is patient prescribed a controlled substance at discharge?: No When asked, does pt state using other controlled substances?: No If prescribed controlled substance>3 days was MAPS reviewed?: No If Rx opioid, was Start Talking consent form obtained?: No If opioid is for acute pain is fill amount 7 days or less?: No Was information provided regarding opioid addiction?: No
== END | disposition home or self-care (01) ==
LOC: LABWHC1 15:12
PROVIDERS: ATTEND Internal Medicine Cardiovascular Disease
DX: D64.9 Anemia, unspecified (principal)
CPT/HCPCS: 36415; 85027

== ENCOUNTER 2017-10-15 09:41 | Day surgery (SDC) | payer MEDICARE ==
[2017-10-08 10:37] VITALS: BMI 36.6
[~2017-10-15 09:41] MED LIST changes: -ALPRAZolam 0.25 MG TAB PO PRN; -ASPIRIN 325 MG TAB PO STA; +LACTATED RINGERS 1,000 ML IV SCH; -SODIUM CHLORIDE 0.9% 1,000 ML in EMPTY BAG 1 BAG IV ONE
[2017-10-15 10:00] VITALS: RESP 18; TEMP 98.4
--- NOTE | 2017-10-15 10:22 | P.PCN ---
Date of Procedure: 10/15/17 Surgeon: Aaron Mccann Description of Procedure: PREOPERATIVE DIAGNOSIS : Bilateral Lumbar spondylosis with Facet Arthropathy without myelopathy POSTOPERATIVE DIAGNOSIS: same PROCEDURE: Diagnostic lumbar medial branch block with fluoroscopy at bilateral L4, L5, sacral ala ANESTHESIA: Local anesthetic; 2 mglimit 100 mg of fentanyl Surgeon: Aaron Mccann MD PROCEDURE INDICATION: This is a pleasant 67-year-old gentleman with a history of lumbar spondylosis presents today for repeat of bilateral lumbar medial branch nerve block. He reports good benefit from these procedures in the past. He has stopped his blood thinner under the guidance of his prescribing physician. He is aware of the risks and benefits of this decision. PROCEDURE DESCRIPTION: the patient was seen and identified in the preop holding area , risks and benefits and possible complications of the procedure and alternative were discussed with the patient, and the patient agreed to proceed with the procedure and signed the consent IV was started and vital signs monitored during the procedure and fluoroscopy was used to maximize the benefit and accuracy of the needle placement, and sedation was given to decrease patient anxiety, patient was taken to the procedure room and placed in prone position vital signs monitored in the back prepped. Under strict sterile technique using a right oblique fluoroscopy ,the junction of the transverse process and the superior articulating process of the bilateral L4, L5, sacral ala vertebra which corresponding to the fluoroscopy image of the eye of the Ric dog on the block side for the medial branches and subsequently , after local infiltration of skin and subcutaneous tissues with lidocaine 1% one mL at each level ,then one 25-gauge Quincke-type needles was placed at the junction of the base of the transverse process and the superior articular process at the appropriate level, and the needle was advanced until the periosteum contacted, needle placement confirmed with AP oblique and lateral view and after appropriate needle placement confirmed, and after negative aspiration, 0.5 mL of Marcaine 0.5% mixed with 40 mg depomedrol in divided doses was injected at each level and the needle subsequently removed. At the end of the procedure and the needles removed and a bandage applied after the skin was cleaned the cleaning solution patient taken to recovery room in stable condition and monitors in the recovery room for 20-30 minutes and discharged home in stable condition after discharge criteria met and patient will follow up with the pain clinic in 2-4 weeks or in the procedure suite for repeat of this procedure. EBL: Minimal COMPLICATION: None.
--- NOTE | 2017-10-15 10:55 | FL ---
EXAMINATION TYPE: FL guided pain mgmt statistic DATE OF EXAM: 10/15/2017 CLINICAL HISTORY: Low back pain. TECHNIQUE: Fluoroscopy. COMPARISON: None. FINDINGS: Fluoroscopic guidance was provided during pain relief procedure performed by Dr. Mccann . A total of 3 seconds of fluoroscopic time was utilized during the procedure and single spot fluorosc opic intraoperative images acquired. Single image acquired shows needle localization at L4-L5 levels bilaterally in the lower lumbar spine. IMPRESSION: As Above.
[2017-10-15 11:05] VITALS: BP 101/63; PULSE 55
[2017-10-15] MEDS ORDERED: IV FLUID CONTINUATION 1,000 ML IV ONE (11:26)
== END 2017-10-15 11:28 | disposition home or self-care (01) ==
LOC: ORPAIN 09:41
PROVIDERS: ATTEND Pain Medicine Pain Medicine
DX: G89.29 Other chronic pain (principal); M47.816 Spondylosis without myelopathy or radiculopathy, lumbar region; M51.36 Other intervertebral disc degeneration, lumbar region; I48.91 Unspecified atrial fibrillation; I10 Essential (primary) hypertension; I25.2 Old myocardial infarction; F17.200 Nicotine dependence, unspecified, uncomplicated; Z79.899 Other long term (current) drug therapy; Z79.01 Long term (current) use of anticoagulants
CPT/HCPCS: 64493; 64494; 64495; J2250; J1030; J3010; 99152

== ENCOUNTER 2017-10-30 06:43 | Day surgery (SDC) | payer MEDICARE ==
[2017-10-23 12:06] VITALS: BMI 36.6
[2017-10-30 07:14] VITALS: TEMP 98.1
[2017-10-30] MEDS ORDERED: LIDOCAINE 1% 20 ML VIAL (10MG/ML) FOR IV START INTRADERMA ONE (07:30)
[2017-10-30] MEDS ORDERED: IV FLUID CONTINUATION 1,000 ML IV ONE (07:57)
--- NOTE | 2017-10-30 07:57 | P.PCN ---
Date of Procedure: 10/30/17 Procedure(s) Performed: PREOPERATIVE DIAGNOSIS : 1- Lumbar spondylosis with Facet Arthropathy without myelopathy . 2- Lumber degenerative disc disease POSTOPERATIVE DIAGNOSIS: 1- Lumbar spondylosis with Facet Arthropathy without myelopathy . 2- Lumber degenerative disc disease PROCEDURE: Diagnostic bilateral L3 -4 , L4 -5 , and L5-S1 medial branch block under fluoroscopy ANESTHESIA: Local with 1% lidocaine 6 ml , moderate sedation with intravenous Versed 2 mg and Fentanyl 100 mcg. EBL: Minimal COMPLICATION: None. IV FLUIDS: 100 mL of normal saline. PROCEDURE INDICATION: Chronic low back pain secondary to Facet arthropathy unresponsive to conservative treatment. PROCEDURE DESCRIPTION: the patient was seen and identified in the preop holding area , risks and benefits and possible complications of the procedure and alternative were discussed with the patient, and the patient agreed to proceed with the procedure and signed the consent IV was started and vital signs monitored during the procedure and fluoroscopy was used to maximize the benefit and accuracy of the needle placement, and sedation was given to decrease patient anxiety, patient was taken to the procedure room and placed in prone position vital signs monitored in the back prepped with chlorhexidine X3 then under strict sterile technique using a right oblique fluoroscopy ,the junction of the transverse process and the superior articulating process of the right L3- 4 , L4- 5, and L5-S1 vertebra which corresponding to the fluoroscopy image of the eye of the Ric dog on the block side for the medial branches and subsequently , after local infiltration of skin and subcu tissuies with Ropivacaine 0.5% one mL at each level ,then 22-gauge Quincke-type needles , 3 needle was used , each one of them placed at the junction of the base of the transverse process and the superior articular process at the appropriate level, and the needle was advanced until the periosteum contacted, needle placement confirmed with AP oblique and lateral view and after appropriate needle placement confirmed, and after negative aspiration for heme and CSF and there was no paresthesia 1-1/2 mL of Ropivacaine 0.5% mixed with 20 mg Kenalog , then half mL injected at each level after negative aspiration the needle subsequently removed and the same procedure repeated for the left side at left side at L3-4, L4- 5 and L5-S1 levels. At the end of the procedure and the needles removed and a bandage applied after the skin was cleaned the cleaning solution patient taken to recovery room in stable condition and monitors in the recovery room for 20-30 minutes and discharged home in stable condition after discharge criteria met and patient will follow up with the pain clinic in 2-4 weeks
[2017-10-30 08:07] VITALS: PULSE 46
[2017-10-30 08:17] VITALS: BP 160/78; RESP 18
--- NOTE | 2017-10-30 08:30 | FL ---
Fluoroscopy History: bilat lum facet blocks bilat lum facet blocks. dr francisco. 9 sec fl time. 4 pics scanned
== END 2017-10-30 08:33 | disposition home or self-care (01) ==
LOC: ORPAIN 06:43
PROVIDERS: ATTEND Specialist
DX: G89.29 Other chronic pain (principal); M47.816 Spondylosis without myelopathy or radiculopathy, lumbar region; M51.36 Other intervertebral disc degeneration, lumbar region; I10 Essential (primary) hypertension; I48.91 Unspecified atrial fibrillation; Z79.01 Long term (current) use of anticoagulants
CPT/HCPCS: 64493; 64494; 64495; J2250; J3301; J3010; 99152

== ENCOUNTER → 2017-12-02 | Outpatient (CLI) | payer MEDICARE ==
[2017-12-02 15:29] VITALS: BP 178/75; PULSE 61; RESP 18
--- NOTE | 2017-12-02 16:01 | P.PAINPG ---
Subjective Progress Note Date: 12/02/17 This is follow-up visit for this patient with a history of severe and chronic low back pain secondary to lumbar degenerative disc disease, lumbar facet arthropathy, We have done an interventional pain procedure agnostic medial branch block lumbar area 2 and patient reported that he had more than 70% decrease in his pain after each block The patient currently on Neurontin 400 mg 3 times a day, [place] 5/325 every 8 hours when necessary ( description from his primary care ) Patient denies any side effect of the medication , patient denies any excessive drowsiness or sleepiness, patient denies any suicidal ideation, Patient reported that the current medication is helping to control the pain and improve the activity of daily livings, Patient denies any motor or sensory deficit, denies any change in the bowel movement or urination, patient denies any fever or night sweats. Objective - Vital Signs Vital signs: Vital Signs Temp Pulse 61 12/02/17 15:22 Resp 18 12/02/17 15:22 BP 178/75 12/02/17 15:22 Pulse Ox 96 12/02/17 15:22 Intake & Output 12/01/17 12/02/17 12/02/17 18:59 06:59 18:59 Weight 122.47 kg - Exam Physical Examinations : 1-Constitutiona : Cooperative , not in acute distress . 2-HEENT : nech ; supple , no Lymphadenopathy , normal thyroid size . eyes : no ptosis , no icterus , no photophobia . ENT : normal of hearing , normal oropharynx , no Thrush . 3- Respiratory : Chest clear to auscultations Bilaterally , no wheezing , no Rhonchi . 4- Cardiovascular : regular rate and rhythem , S1 , S2 , no S3 , no S4. 5- Gastrointestinal : abdomen soft no tenderness , bowel sounds , no organomegally . 6- Genitourinary : Defferred . 7- neurologic : Cranial nerve II to XII intact , no focal neurological deffecit . 8-psychatric : alert , oriented X 3 , appropriate affect , intact judgment and insight . 9-Lymphatic : no Lymphadenopathy . 10- musculoskeltal : Lumber spine moter stegnth lower extremities ,thigh and legs 5/5 Right side , 5/5 Left side deep tendon reflexes : normal Knee Jerk , normal ankle Jerk positive lumber facet Loading Test Range of motion of the lumbar spine Flexion 30 degrees, extension 10 degrees strait leg raising test , positive at 30 degree Fabere test positive RT and positive LT . Assessment and Plan Plan: Assessment and plan= chronic low back pain secondary to lumbar degenerative disc disease , lumbar spondylosis with lumbar facet arthropathy . Patient had good results after the diagnostic medial branch blockade would be good candidate to have radiofrequency ablation of the medial branch lumbar area We'll start with the left side, L3 4/L4 5/L5-S1 then later on we'll do the right side, procedure risk and benefits and alternatives discussed with patient he agreed with the preceding, prescription refill for Neurontin 400 mg 3 times a day dispense 90 with 5 refills., Time with Patient: Less than 30 PQRS Measure Charge Sheet Measure #130: Documentation of Current Meds in Medical Chart: Patient's medications documented in chart Measure #226: Tobacco Use: Screen & Cessation Intervention: Pt not a tobacco user Measure #111: Pneumonia Vaccination: Pneumococcal vaccine administered or previously received Measure #47: Advance Care Plan: Advance care planning discussed & documented, pt chose/unable to give Measure #412: Opioid Treatment Agreement: No documentation of signed opioid treatment agreement Measure #408: Opioid Therapy Follow-up Evaluation: Patient had NO f/u eval minimum every 3 months during opioid therapy Measure #317: Preventitive Care & Scrn High Bld Press & F/U: Pre-hypertensive or hypertensive BP documented, pt will f/u with PCP Measure #128: Body Mass Index (BMI) Screening & Follow-up: BMI documented ABOVE normal parameters - f/u documented Measure #131: Pain Assessment & Follow-up: Pain positive & plan documented, Follow-up scheduled Measure #431: Unhealthy Alcohol Use Preventative Care & Scrn: Patient not identified as an unhealthy alcohol user PQRS Narrative: Smoking Status Former smoker Do You Want the Pneumonia Vaccine Up to Date Vaccine AT THIS TIME? Blood Pressure 178/75 Pain Intensity [Lower Back] 2 Scale Used Numeric (1 - 10) Hx Alcohol Use (MH) Yes: 6 PK BEER/DAY Home Medications: Ambulatory Orders Atorvastatin [Lipitor] 80 mg PO HS 10/06/14 Metoprolol Tartrate [Lopressor] 25 mg PO BID 10/06/14 Multivit-Min/FA/Lycopene/Lut [Centrum Silver Tablet] 1 tab PO DAILY 10/06/14 [place]-3 Fatty Acids/Fish Oil [Fish Oil 1,000 mg Softgel] 1 cap PO DAILY Nitroglycerin Sl Tabs [Nitrostat] 0.4 mg SUBLINGUAL Q5M PRN #25 tab 05/14/15 Amiodarone HCl [Pacerone] 200 mg PO DAILY 06/27/16 Gabapentin [Neurontin] 400 mg PO TID #90 cap 10/08/16 Hydrocodone/Acetaminophen [Hydrocodon-Acetaminophen 5-325] 1 tab PO Q6HR PRN 04/03 Spironolactone [Aldactone] 25 mg PO DAILY 05/15/17 Isosorbide Mononitrate ER [Imdur] 15 mg PO DAILY dose 05/22/17 Potassium Chloride ER [K-Dur 20] 20 meq PO DAILY #60 tab.er.prt 05/22/17 ALPRAZolam [Xanax] 0.5 mg PO DAILY PRN 09/24/17 Apixaban [Eliquis] 5 mg PO BID 09/24/17 Ferrous Sulfate [Feosol] 325 mg PO TID 09/24/17 Ranitidine HCl [Zantac] 150 mg PO BID 09/24/17 Furosemide [Lasix] 40 mg PO TID 10/08/17 Controlled Substance Measures - Controlled Substance Measures Is patient prescribed a controlled substance at discharge?: No When asked, does pt state using other controlled substances?: No If prescribed controlled substance>3 days was MAPS reviewed?: No If Rx opioid, was Start Talking consent form obtained?: No If opioid is for acute pain is fill amount 7 days or less?: No Was information provided regarding opioid addiction?: No
== END | disposition home or self-care (01) ==
LOC: PNWHC3 14:03
PROVIDERS: ATTEND Specialist
DX: G89.29 Other chronic pain (principal); M54.5 Low back pain; M51.36 Other intervertebral disc degeneration, lumbar region; M47.816 Spondylosis without myelopathy or radiculopathy, lumbar region; M46.86 Other specified inflammatory spondylopathies, lumbar region; Z79.891 Long term (current) use of opiate analgesic; Z98.890 Other specified postprocedural states; Z87.891 Personal history of nicotine dependence
CPT/HCPCS: 99211

== ENCOUNTER 2017-12-17 07:41 | Day surgery (SDC) | payer MEDICARE ==
[2017-12-11 13:46] VITALS: BMI 36.6
[2017-12-17 08:11] VITALS: TEMP 97.2
[2017-12-17] MEDS ORDERED: LIDOCAINE 1% 20 ML VIAL (10MG/ML) FOR IV START INTRADERMA ONE (08:16)
[2017-12-17] MEDS: LACTATED RINGERS 1,000 ML IV SCH ×2 (08:16→08:35)
[2017-12-17] MEDS ORDERED: IV FLUID CONTINUATION 600 ML IV ONE (09:14)
--- NOTE | 2017-12-17 09:21 | P.PCN ---
Date of Procedure: 12/17/17 Surgeon: Aaron Mccann Description of Procedure: Procedure(s) Performed: PREOPERATIVE DIAGNOSIS: Left lumbar spondylosis POSTOPERATIVE DIAGNOSIS: PROCEDURES: Left L4, L5, sacral ala Radiofrequency ablation with fluoroscopic guidance SURGEON: Aaron Mccann MD. ANESTHESIA: Moderate sedation with intravenous versed 2 mg and fentanyl 100 mcg and local infiltration with lidocaine 1% 10 ml EBL: Minimal PROCEDURE INDICATION: The patient with low back pain secondary to lumbar facet arthropathy who had more than 50% relief of pain with previous diagnostic lumbar medial branch block with bupivacaine. PROCEDURE DESCRIPTION / TECHNIQUE: The patient was seen and identified in the preoperative area. Risks, benefits, complications, including but not limited to risk of infection ,bleeding , allergic reactions to the medications and incomplete pain relief , and alternatives were discussed with the patient, the patient agreed to proceed with the procedure and signed the consent. IV was started. The operative site was marked. Patient was taken to the OR and time out was completed. The patient was placed in the prone position on the procedure table. The lumber area was prepped and draped in the usual sterile fashion. . Vital signs were closely monitored during the procedure .IV sedation was used during the procedure to decrease patients anxiety. Using AP and then oblique fluoroscopy, the ``eye of the Ric dog corresponding to the connection between the superior and transverse articular processes of the above-mentioned levels were identified, marked, and localized with 1% lidocaine. Subsequently, a 20 [id number] radiofrequency cannula with a 10-mm active tip was advanced guided by fluoroscopy to each of the ``eyes of the Ric dog at each site then underwent sensory testing at 50 Hz and 0 to 1 volt and motor testing at 2.5 Hz and 0 to 3 volt with local stimulation, but no radicular symptoms down the legs. Then the sites underwent radiofrequency thermocoagulation at 80 degrees celsius for 90 seconds after injecting 0.5 ml of PF lidocaine 1%. then After the thermocoagulation done , 1 ml of the block solution containing depomedrol 40 mg and 4 ml of marcaine 0.5% was injected in divided doses at each levels after negative aspiration of CSF and blood and with no paresthesias. Sterile dressings were applied. COMPLICATIONS: No acute complications. DISPOSITION / PLANS: The patient was placed in a supine position and transferred to the recovery area in a stable condition for observation and was discharged from the recovery room after meeting discharge criteria. Home discharge instructions given to the patient by the staff. The patient was reexamined prior to discharge. He will follow-up for right lumbar radio frequency ablation..
--- NOTE | 2017-12-17 09:27 | FL ---
Fluoroscopy INDICATION: Pain FINDINGS: Fluoroscopy time: 4 seconds. Images obtained: 1. IMPRESSIONS: 1. Documentation of fluoroscopy.
[2017-12-17 09:34] VITALS: BP 155/70; PULSE 55; RESP 18
== END 2017-12-17 09:47 | disposition home or self-care (01) ==
LOC: ORPAIN 07:41
PROVIDERS: ATTEND Pain Medicine Pain Medicine
DX: M47.816 Spondylosis without myelopathy or radiculopathy, lumbar region (principal)
CPT/HCPCS: 64635; 64636; J2250; J1030; J3010; 99152

== ENCOUNTER → 2018-01-05 | Day surgery (SDC) | payer MEDICARE ==
[2017-12-30 10:20] VITALS: BMI 36.6
[~2018-01-05] MED LIST changes: -LACTATED RINGERS 1,000 ML IV SCH; +SODIUM CHLORIDE 0.9% 500 ML 500 ML IV SCH
[2018-01-05 10:27] VITALS: RESP 18
--- NOTE | 2018-01-05 11:23 | P.PCN ---
Date of Procedure: 01/05/18 Procedure(s) Performed: PREOPERATIVE DIAGNOSIS: 1-Lumbar Spondylosis with Facet Arthropathy without myelopathy. POSTOPERATIVE DIAGNOSIS: 1- Lumbar Spondylosis with Facet Arthropathy without myelopathy. PROCEDURES : Right Radiofrequency thermocoagulation, L3-L4, L4-L5, and L5-S1 medial branch, with fluoroscopic guidance ANESTHESIA: Moderate sedation with intravenous versed 2 mg and fentaneyl 100 mcg, and local infiltration with Ropivacaine 0.5 % . EBL: Minimal PROCEDURE INDICATION: The patient with low back pain secondary to lumbar facet arthropathy who had more than 50% relief of her pain with previous diagnostic lumbar medial branch block with bupivacaine. PROCEDURE DESCRIPTION / TECHNIQUE: The patient was seen and identified in the preoperative area. Risks, benefits, complications, including but not limited to risk of infection ,bleeding , allergic reactions to the medications and no complete pain releife , and alternatives were discussed with the patient, the patient agreed to proceed with the procedure and signed the consent. IV was started. Vital signs remained stable throughout the procedure. Patient was taken to the OR and time out was completed. The patient was placed in the prone position on the procedure table. The lumber area was prepped and draped in the usual sterile fashion. . Vital signs were closely monitored during the procedure .IV sedation was used during the procedure to decrease patients anxiety. Using AP and then oblique fluoroscopy, the ``eye of the Ric dog corresponding to the connection between the superior and transverse articular processes of right L3, L4, and L5 were identified, marked, and localized with 1% lidocaine. Subsequently, a 18 [id number] radiofrequency cannula with a 10- mm active tip was advanced guided by fluoroscopy to each of the ``eyes of the Ric dog at right L3, L4, and L5. Each site then underwent sensory testing at 50 Hz and 0 to 1 volt and motor testing at 2.5 Hz and 0 to 3 volt with local stimulation, but no radicular symptoms down the legs. Thereafter the right L3-4, L4-5, and L5-S1 sites underwent radiofrequency thermocoagulation at 80 degrees celsius for 90 seconds after injecting 0.5 ml of PF Ropivacaine 1ml then After the thermocoagulation done , 1 ml of the block solution containing Kenalog 40 mg and 3 ml of Ropivacaine 0.5% was injected at the right L3-4 , L4-5 , and L5-S1, levels after negative aspiration of CSF and blood and with no paresthesias. Cannulas were retracted while injecting lidocaine 1% until the needle is out. At the end of the procedure, the skin was cleansed and bandages were applied. COMPLICATIONS: No acute complications. DISPOSITION / PLANS: The patient was placed in a supine position and transferred to the recovery area in a stable condition for observation and was discharged from the recovery room after meeting discharge criteria. Home discharge instructions given to the patient by the staff. The patient was reexamined prior to discharge. The patient will schedule a follow up in the clinic in 2-4 weeks.
--- NOTE | 2018-01-05 11:35 | FL ---
EXAMINATION TYPE: FL guided pain mgmt statistic DATE OF EXAM: 01/05/2018 COMPARISON: NONE HISTORY: Back pain TECHNIQUE: Fluoroscopy. FINDINGS/IMPRESSION: Fluoroscopic guidance was provided during procedure performed by Dr. Oliveros. A total of 11 seconds of fluoroscopic time was utilized during the procedure and 5 spot images was a cquired demonstrating multilevel localization of the lumbosacral spine.
[2018-01-05 11:47] VITALS: BP 162/70; PULSE 64
== END | disposition home or self-care (01) ==
LOC: ORPAIN 09:35
PROVIDERS: ATTEND Specialist
DX: G89.29 Other chronic pain (principal); M47.816 Spondylosis without myelopathy or radiculopathy, lumbar region; M51.36 Other intervertebral disc degeneration, lumbar region; Z79.899 Other long term (current) drug therapy; Z79.01 Long term (current) use of anticoagulants
CPT/HCPCS: 64635; 64636 ×2; J2250; J3301; J3010; 99152

== ENCOUNTER → 2018-02-10 | Outpatient (CLI) | payer MEDICARE, OTHER ==
[2018-02-10 14:36] VITALS: BP 148/67; PULSE 62; RESP 16
--- NOTE | 2018-02-10 15:56 | P.PN ---
Subjective Progress Note Date: 02/10/18 This is follow-up visit for this patient with a history of severe and chronic low back pain secondary to lumbar degenerative disc disease, lumbar facet arthropathy, We have done an interventional pain procedure agnostic medial branch block lumbar area 2 and patient reported that he had more than 70% decrease in his pain after each block Recently we have done radiofrequency ablation of the medial branch from lumbar area L3 to S1, patient currently complains of severe low back pain localized in the low back area and mostly in the buttock area The patient currently on Neurontin 400 mg 3 times a day, [place] 5/325 every 8 hours when necessary ( description from his primary care ) Patient denies any side effect of the medication , patient denies any excessive drowsiness or sleepiness, patient denies any suicidal ideation, Patient reported that the current medication is helping to control the pain and improve the activity of daily livings, Patient denies any motor or sensory deficit, denies any change in the bowel movement or urination, patient denies any fever or night sweats. Physical Examinations : 1-Constitutiona : Cooperative , not in acute distress . 2-HEENT : nech ; supple , no Lymphadenopathy , normal thyroid size . eyes : no ptosis , no icterus , no photophobia . ENT : normal of hearing , normal oropharynx , no Thrush . 3- Respiratory : Chest clear to auscultations Bilaterally , no wheezing , no Rhonchi . 4- Cardiovascular : regular rate and rhythem , S1 , S2 , no S3 , no S4. 5- Gastrointestinal : abdomen soft no tenderness , bowel sounds , no organomegally . 6- Genitourinary : Defferred . 7- neurologic : Cranial nerve II to XII intact , no focal neurological deffecit . 8-psychatric : alert , oriented X 3 , appropriate affect , intact judgment and insight . 9-Lymphatic : no Lymphadenopathy . 10- musculoskeltal : Lumber spine moter stegnth lower extremities ,thigh and legs 4/5 Right side , 4/5 Left side deep tendon reflexes : normal Knee Jerk , normal ankle Jerk positive lumber facet Loading Test Range of motion of the lumbar spine Flexion 30 degrees, extension 10 degrees strait leg raising test , positive at 30 degree Fabere test positive RT and positive LT . Severe tenderness over the iliolumbar ligament Assessment and Plan Plan: Assessment and plan= chronic low back pain secondary to lumbar degenerative disc disease , lumbar spondylosis with lumbar facet arthropathy . Status post radiofrequency ablation of the medial branch lumbar area L3 to S1. Currently patient had clinical findings of iliolumbar ligament neuralgia, patient will be good candidate to have iliolumbar ligament block bilaterally under fluoroscopy guidance PQRS Measure Charge Sheet Measure #130: Documentation of Current Meds in Medical Chart: Patient's medications documented in chart Measure #226: Tobacco Use: Screen & Cessation Intervention: Pt not a tobacco user Measure #111: Pneumonia Vaccination: Pneumococcal vaccine administered or previously received Measure #47: Advance Care Plan: Advance care planning discussed & documented, pt chose/unable to give Measure #412: Opioid Treatment Agreement: No documentation of signed opioid treatment agreement Measure #408: Opioid Therapy Follow-up Evaluation: Patient had NO f/u eval minimum every 3 months during opioid therapy Measure #317: Preventitive Care & Scrn High Bld Press & F/U: Pre-hypertensive or hypertensive BP documented, pt will f/u with PCP Measure #128: Body Mass Index (BMI) Screening & Follow-up: BMI documented ABOVE normal parameters - f/u documented Measure #131: Pain Assessment & Follow-up: Pain positive & plan documented, Follow-up scheduled Measure #431: Unhealthy Alcohol Use Preventative Care & Scrn: Patient not identified as an unhealthy alcohol user PQRS Narrative: - Controlled Substance Measures Is patient prescribed a controlled substance at discharge?: No When asked, does pt state using other controlled substances?: No If prescribed controlled substance>3 days was MAPS reviewed?: No If Rx opioid, was Start Talking consent form obtained?: No If opioid is for acute pain is fill amount 7 days or less?: No Was information provided regarding opioid addiction?: No Objective - Vital Signs Vital signs: Vital Signs Temp Pulse 62 02/10/18 14:27 Resp 16 02/10/18 14:27 BP 148/67 02/10/18 14:27 Pulse Ox 94 L 02/10/18 14:27 Intake & Output 02/09/18 02/10/18 02/10/18 18:59 06:59 18:59 Weight 124.738 kg
== END | disposition home or self-care (01) ==
LOC: PNWHC3 13:48
PROVIDERS: ATTEND Specialist
DX: G89.29 Other chronic pain (principal); M51.36 Other intervertebral disc degeneration, lumbar region; M47.816 Spondylosis without myelopathy or radiculopathy, lumbar region; M46.96 Unspecified inflammatory spondylopathy, lumbar region; Z98.890 Other specified postprocedural states; Z79.899 Other long term (current) drug therapy; Z79.891 Long term (current) use of opiate analgesic
CPT/HCPCS: 99211

== ENCOUNTER 2018-03-02 07:48 | Day surgery (SDC) | payer MEDICARE, OTHER ==
[2018-02-26 10:10] VITALS: BMI 37.3
[2018-03-02 08:08] VITALS: TEMP 98.3
[2018-03-02] MEDS ORDERED: LIDOCAINE 1% 20 ML VIAL (10MG/ML) FOR IV START INTRADERMA ONE (08:08)
[2018-03-02] MEDS ORDERED: LACTATED RINGERS 1,000 ML IV ONE (08:09)
--- NOTE | 2018-03-02 09:12 | P.PCN ---
Date of Procedure: 03/02/18 Procedure(s) Performed: Procedure= bilateral iliolumbar ligament steroid injection under fluoroscopy guidance Preoperative diagnosis= 1-bilateral iliolumbar ligament neuralgia 2-lumbar spondylosis with facet arthropathy Postoperative diagnosis=1-bilateral iliolumbar ligament neuralgia 2-lumbar spondylosis with facet arthropathy Complication = none Condition= stable Anesthesia= moderate sedation with intravenous Versed 2 mg , and fentanyl 100 micrograms and local infiltration with lidocaine 1% 5 mL Indication for the procedure= patient complaining of low back pain , examination was positive for severe tenderness over the iliolumbar ligament bilaterally and patient diagnosed with iliolumbar ligament neuralgia , for this reason he was good candidate for bilateral iliolumbar ligament steroid injection steroid injection. Description of the procedure= procedure risk and benefits discussed with the patient, including but not limited, risk of infection and bleeding, and ALLERGIC reaction to the medication and not complete pain relief and patient agreed with the preceding patient taken to the operating room, placed in prone position or standard monitors applied to the patient then after induction of anesthesia back prepped with chlorhexidine 3 times , Then under strict sterile technique, first I did the right iliolumbar ligament the which was identified under fluoroscopy guidance been local infiltration of the skin and subcu interstitial with lidocaine 1% then 22-gauge Quincke Needle advanced slowly under fluoroscopy and placed in the middle of the distance between the transverse process of Right L5 and the right sacral ala , needle placement confirmed with AP and oblique and lateral view and after appropriate needle placement confirmed, and after negative aspiration, or heme , then Ropivacaine 0.5% 4 mL, and 20 mg of Depo-Medrol mixed together and injected in the right iliolumbar ligament after negative aspiration patient tolerated the procedure well without any complication. Then the exact same procedure And Identified the Left Iliolumbar Ligament Steroid Injection
[2018-03-02] MEDS ORDERED: IV FLUID CONTINUATION 700 ML IV ONE (09:21)
[2018-03-02 09:38] VITALS: RESP 17
--- NOTE | 2018-03-02 09:52 | FL ---
EXAMINATION TYPE: FL guided pain mgmt statistic DATE OF EXAM: 03/02/2018 CLINICAL HISTORY: Low back pain. TECHNIQUE: Fluoroscopy. COMPARISON: None. FINDINGS: Fluoroscopic guidance was provided during pain relief procedure performed by Dr. Multani . A total of 8 seconds of fluoroscopic time was utilized during the procedure and two spot images ar e acquired. Images acquired shows needle localization at level of lumbosacral articulation lateral a spect bilaterally. IMPRESSION: As Above.
[2018-03-02 10:00] VITALS: BP 153/87; PULSE 64
== END 2018-03-02 09:58 | disposition home or self-care (01) ==
LOC: ORPAIN 07:48
PROVIDERS: ATTEND Specialist
DX: G58.8 Other specified mononeuropathies (principal); M47.816 Spondylosis without myelopathy or radiculopathy, lumbar region; I48.91 Unspecified atrial fibrillation; I10 Essential (primary) hypertension; I25.10 Atherosclerotic heart disease of native coronary artery without angina pectoris; Z79.01 Long term (current) use of anticoagulants
CPT/HCPCS: 20550; J2250; J1030; J3010

== ENCOUNTER → 2018-04-07 | Outpatient (CLI) | payer MEDICARE, OTHER ==
[2018-04-07 12:06] VITALS: BP 146/72; PULSE 94; RESP 18
--- NOTE | 2018-04-07 12:34 | P.PN ---
Subjective Progress Note Date: 04/07/18 This is follow-up visit for this patient with a history of severe and chronic low back pain secondary to lumbar degenerative disc disease, lumbar facet arthropathy, We have done an interventional pain procedure lumbar epidural steroid injection on multiple occasions patient had no benefit from it and later on we held on diagnostic medial branch block lumbar area , and it was positive ,then we have done radiofrequency ablation of the medial branch lumbar area , patient continued to have severe low back pain The patient currently on Neurontin 400 mg 3 times a day, [place] 5/325 every 8 hours when necessary ( description from his primary care ) Patient denies any side effect of the medication , patient denies any excessive drowsiness or sleepiness, patient denies any suicidal ideation, Patient reported that the current medication is helping to control the pain and improve the activity of daily livings, Patient denies any motor or sensory deficit, denies any change in the bowel movement or urination, patient denies any fever or night sweats. Physical Examinations : 1-Constitutiona : Cooperative , not in acute distress . 2-HEENT : nech ; supple , no Lymphadenopathy , normal thyroid size . eyes : no ptosis , no icterus , no photophobia . ENT : normal of hearing , normal oropharynx , no Thrush . 3- Respiratory : Chest clear to auscultations Bilaterally , no wheezing , no Rhonchi . 4- Cardiovascular : regular rate and rhythem , S1 , S2 , no S3 , no S4. 5- Gastrointestinal : abdomen soft no tenderness , bowel sounds , no organomegally . 6- Genitourinary : Defferred . 7- neurologic : Cranial nerve II to XII intact , no focal neurological deffecit . 8-psychatric : alert , oriented X 3 , appropriate affect , intact judgment and insight . 9-Lymphatic : no Lymphadenopathy . 10- musculoskeltal : Lumber spine moter stegnth lower extremities ,thigh and legs 5/5 Right side , 5/5 Left side deep tendon reflexes : normal Knee Jerk , normal ankle Jerk positive lumber facet Loading Test Range of motion of the lumbar spine Flexion 30 degrees, extension 10 degrees strait leg raising test , positive at 30 degree Fabere test positive RT and positive LT . Assessment and plan= chronic low back pain secondary to lumbar degenerative disc disease , lumbar spondylosis with lumbar facet arthropathy . Patient continued to have severe low back pain after lumbar epidural steroid injections done on multiple occasions, and he continued to have severe low back pain after radiofrequency ablation of the medial branch lumbar area, currently he is on [place] 5/325 and Neurontin 400 mg 3 times a day and he continued to have severe low back pain I recommend start patient on Celebrex 200 milligrams 1 tablet by mouth daily, patient cannot take standard NSAIDs because he is currently on a ELLIQUIS , patient also was referred for evaluation by a spine surgeon Dr. Garcia for possible surgical interventions , and he will follow up with the pain clinic when necessary patient will get his prescription refill for his medication from his primary care PQRS Measure Charge Sheet Measure #130: Documentation of Current Meds in Medical Chart: Patient's medications documented in chart Measure #226: Tobacco Use: Screen & Cessation Intervention: Pt not a tobacco user Measure #111: Pneumonia Vaccination: Pneumococcal vaccine administered or previously received Measure #47: Advance Care Plan: Advance care planning discussed & documented, pt chose/unable to give Measure #412: Opioid Treatment Agreement: No documentation of signed opioid treatment agreement Measure #408: Opioid Therapy Follow-up Evaluation: Patient had NO f/u eval minimum every 3 months during opioid therapy Measure #317: Preventitive Care & Scrn High Bld Press & F/U: Pre-hypertensive or hypertensive BP documented, pt will f/u with PCP Measure #128: Body Mass Index (BMI) Screening & Follow-up: BMI documented ABOVE normal parameters - f/u documented Measure #131: Pain Assessment & Follow-up: Pain positive & plan documented, Follow-up scheduled Measure #431: Unhealthy Alcohol Use Preventative Care & Scrn: Patient not identified as an unhealthy alcohol user PQRS Narrative: - Controlled Substance Measures Is patient prescribed a controlled substance at discharge?: No When asked, does pt state using other controlled substances?: No If prescribed controlled substance>3 days was MAPS reviewed?: No If Rx opioid, was Start Talking consent form obtained?: No If opioid is for acute pain is fill amount 7 days or less?: No Was information provided regarding opioid addiction?: No Objective - Vital Signs Vital signs: Vital Signs Temp Pulse 62 02/10/18 14:27 Resp 16 02/10/18 14:27 BP 148/67 02/10/18 14:27 Pulse Ox 94 L 02/10/18 14:27
== END ==
LOC: PNWHC3 11:41
PROVIDERS: ATTEND Specialist
DX: G89.29 Other chronic pain (principal); M51.36 Other intervertebral disc degeneration, lumbar region; M47.816 Spondylosis without myelopathy or radiculopathy, lumbar region; M46.96 Unspecified inflammatory spondylopathy, lumbar region; Z79.891 Long term (current) use of opiate analgesic; Z79.01 Long term (current) use of anticoagulants
CPT/HCPCS: 99211

== ENCOUNTER → 2018-05-08 | Outpatient (CLI) | payer MEDICARE, OTHER ==
--- NOTE | 2018-05-08 16:28 | MR ---
EXAMINATION TYPE: MR lumbar spine wo con DATE OF EXAM: 05/08/2018 COMPARISON: 02/02/2015 HISTORY: Low back pain degenerative disc disease CONTRAST: 0 mL intravenous Gadavist. TECHNIQUE: Multiplanar, multisequence images of the lumbar spine were acquired. FINDINGS: L5-S1: No significant disc bulge or disc herniation. No spinal canal stenosis. No foraminal stenosi s. Mild facet degenerative changes present.. L4-L5: Very minimal grade 1 spondylolisthesis may be present of L4 anterior on L5. Mild disc bulge h as anterior thecal sac flattening. No AP spinal canal stenosis present. Facet hypertrophy is present. Significant posterior lateral thecal sac compression is not evident. There is some moderate bilatera l foraminal stenosis present. L3-L4: Broad-based disc bulge has anterior thecal sac contact. No AP spinal canal stenosis present. F acet hypertrophy and ligamentum flavum laxity is posterior lateral thecal sac compression. No foramin al stenosis is present. L2-L3: Anterior thecal sac flattening from disc contact with the thecal sac is present. No AP spinal canal stenosis present. Facet hypertrophy is present. L1-L2: No significant disc bulge or disc herniation. No spinal canal stenosis. No foraminal stenosi s. Facet hypertrophy is present. T12-L1: No significant disc bulge or disc herniation. No spinal canal stenosis. No foraminal stenos is. IMPRESSION: 1. Minimal grade 1 spondylolisthesis of L4 anterior on L5 with disc uncovering. Disc bulging at L4-5 has mild anterior thecal sac flattening. This appears diminished from comparison. 2. Disc bulging with mild anterior thecal sac compression L3-4 is similar to prior exam. 3. Multilevel facet hypertrophy. Some mild posterior lateral thecal sac compression may be present L3 -4.
== END | disposition home or self-care (01) ==
LOC: RADMRIMAIN 14:40
PROVIDERS: ATTEND Orthopaedic Surgery Orthopaedic Surgery of the Spine
DX: M51.16 Intervertebral disc disorders with radiculopathy, lumbar region (principal); M51.06 Intervertebral disc disorders with myelopathy, lumbar region; M43.16 Spondylolisthesis, lumbar region; M46.86 Other specified inflammatory spondylopathies, lumbar region; M16.0 Bilateral primary osteoarthritis of hip
CPT/HCPCS: 72148

== ENCOUNTER 2018-05-30 19:49 | Emergency (ER) | payer MEDICARE, OTHER ==
[2018-05-30 19:56] VITALS: PULSE 68; TEMP 98.4
--- NOTE | 2018-05-30 20:13 | ED ---
Fall HPI - General Chief Complaint: Fall Stated Complaint: Fall Time Seen by Provider: 05/30/18 19:55 Source: EMS Mode of arrival: EMS - History of Present Illness Initial Comments: Patient is a 68-year-old male presenting for right leg pain. The patient states that at 2 PM, his right leg gave out on him causing him to fall down on his knee. He states that he does take Sirota but denies adamantly any loss consciousness, back pain, head injury or neck pain. He states that his family urged him to come in because he has had multiple falls in the last couple months all stemming from the right leg just given out. He denies any weakness or paresthesias in the leg as well. - Related Data Home Medications Medication Instructions Recorded Confirmed Atorvastatin [Lipitor] 80 mg PO HS 10/06/14 05/30/18 Metoprolol Tartrate [Lopressor] 25 mg PO BID 10/06/14 05/30/18 Multivit-Min/FA/Lycopene/Lut 1 tab PO DAILY 10/06/14 05/30/18 [Centrum Silver Tablet] [place]-3 Fatty Acids/Fish Oil [Fish 1 cap PO DAILY 10/06/14 05/30/18 Oil 1,000 mg Softgel] Amiodarone HCl [Pacerone] 200 mg PO DAILY 06/27/16 05/30/18 Hydrocodone/Acetaminophen 1 tab PO Q6HR PRN 04/17/17 05/30/18 [Hydrocodon-Acetaminophen 5-325] Spironolactone [Aldactone] 25 mg PO DAILY 05/15/17 05/30/18 ALPRAZolam [Xanax] 0.5 mg PO DAILY PRN 09/24/17 05/30/18 Apixaban [Eliquis] 5 mg PO BID 09/24/17 05/30/18 Metolazone [Zaroxolyn] 2.5 mg PO DAILY 02/10/18 05/30/18 Furosemide [Lasix] 80 mg PO BID 04/07/18 05/30/18 Potassium Chloride ER [K-Dur 20] 20 meq PO BID 05/30/18 05/30/18 Ranitidine HCl [Zantac] 150 mg PO BID 05/30/18 05/30/18 Previous Rx's Medication Instructions Recorded Nitroglycerin Sl Tabs [Nitrostat] 0.4 mg SUBLINGUAL Q5M PRN #25 tab 05/14/15 Gabapentin [Neurontin] 400 mg PO TID #90 cap 10/08/16 Isosorbide Mononitrate ER [Imdur] 15 mg PO DAILY dose 05/22/17 Allergies Allergy/AdvReac Type Severity Reaction Status Date / Time No Known Allergies Allergy Verified 05/30/18 20:35 Review of Systems ROS Statement: Those systems with pertinent positive or pertinent negative responses have been documented in the HPI. Constitutional: Negative for chills, fatigue and fever. HENT: Negative for congestion. Respiratory: Negative for chest tightness, shortness of breath and wheezing. Negative for cough Cardiovascular: Negative for chest pain and palpitations. Gastrointestinal: Negative for abdominal pain. Negative for abdominal distention, diarrhea, nausea and vomiting. Genitourinary: Negative for dysuria. Musculoskeletal: Negative for back pain, neck pain and neck stiffness. Positive for right knee pain Skin: Negative for color change. Neurological: Negative for dizziness, speech difficulty, weakness and light- headedness. Psychiatric/Behavioral: Negative for agitation and confusion. Negative for anxiety ROS Other: All systems not noted in ROS Statement are negative. Past Medical History Past Medical History: Atrial Fibrillation, Cancer, Hyperlipidemia, Hypertension, Myocardial Infarction ([place]), Osteoarthritis (OA), Vascular Disorder Additional Past Medical History / Comment(s): PVD, BACK PAIN, SWELLING IN ANKLES AND FEET, hx SKIN CANCER Last Myocardial Infarction Date:: 01-20-13 History of Any Multi-Drug Resistant Organisms: None Reported Past Surgical History: Heart Catheterization, Heart Catheterization With Stent Additional Past Surgical History / Comment(s): aortic valve replacement 2012, aortogram, pt states 2 failed stent replacement-1 to each leg, PAIN CLINIC PROCEDURES, ABDOMINAL AORTOGRAM, Past Anesthesia/Blood Transfusion Reactions: No Reported Reaction Date of Last Stent Placement:: 05/30/15 Past Psychological History: No Psychological Hx Reported Smoking Status: Former smoker Past Alcohol Use History: Daily Past Drug Use History: None Reported - Past Family History Mother Family Medical History: Deep Vein Thrombosis (DVT) General Exam - General Exam Comments Initial Comments: Constitutional: Pt appears well-developed and well-nourished. No distress. Head: Normocephalic and atraumatic. Eyes: EOM are normal. Neck: Normal range of motion. Neck supple. Cardiovascular: Normal rate, regular rhythm, S1 normal, S2 normal and normal heart sounds. Exam reveals no gallop and no friction rub. No murmur heard. Pulmonary/Chest: Effort normal and breath sounds normal. No tachypnea and no bradypnea. No respiratory distress. No wheezes or rales noted. Abdominal: Soft. Bowel sounds are normal. Pt exhibits no shifting dullness, no distension, no pulsatile liver, no fluid wave, no abdominal bruit and no ascites. There is no rigidity, no rebound, no guarding, no tenderness at McBurney's point and negative Colon's sign. There is no tenderness. Musculoskeletal: Normal range of motion. No tenderness to C-spine, T-spine, L- spine. There is no tenderness or effusion to the right hip or right knee. Neurological: Pt is alert and oriented to person, place, and time. No cranial nerve deficit. Skin: Skin is warm and dry. No rash noted. Pt is not diaphoretic. No erythema. No pallor. Psychiatric: Pt has a normal mood and affect. Pt behavior is normal. Thought content normal. Limitations: no limitations Course Vital Signs 05/30/18 05/30/18 19:50 22:24 Temperature 98.4 F Pulse Rate 68 68 Respiratory 16 18 Rate Blood Pressure 134/66 146/61 O2 Sat by Pulse 95 95 Oximetry Medical Decision Making - Medical Decision Making Laboratory studies showed that there was leukocytosis of 17.7 but no focal source could be found as urinalysis was negative. There is also some minor electrolyte derangements with a sodium of 1:30, potassium 3.2 and magnesium of 1.5. There is no evidence of acute kidney injury and it was explained that the leukocytosis may be reactionary. However, family and patient were strongly caut ioned to follow up with PCP in next 1-2 days which they were agreeable to. - Lab Data Result diagrams: 05/30/18 20:13 05/30/18 20:13 Lab Results 05/30/18 05/30/18 05/30/18 Range/Units 20:13 20: 20:13 WBC 17.7 H (3.8-10.6) k/uL RBC 3.67 L (4.30-5.90) m/uL Hgb 11.5 L (13.0-17.5) gm/dL Hct 35.2 L (39.0-53.0) % MCV 95.9 (80.0-100.0) fL MCH 31.4 (25.0-35.0) pg MCHC 32.7 (31.0-37.0) g/dL RDW 15.5 (11.5-15.5) % Plt Count 256 (150-450) k/uL Neutrophils % (Manual) 73 % Lymphocytes % (Manual) 13 % Monocytes % (Manual) 14 % Neutrophils # (Manual) 12.92 H (1.3-7.7) k/uL Lymphocytes # (Manual) 2.30 (1.0-4.8) k/uL Monocytes # (Manual) 2.48 H (0-1.0) k/uL Nucleated RBCs 0 (0-0) /100 WBC Manual Slide Review Performed Polychromasia Present PT 12.7 H (9.0-12.0) sec INR 1.2 H (<1.2) APTT 29.4 (22.0-30.0) sec Sodium 130 L (137-145) mmol/L Potassium 3.2 L (3.5-5.1) mmol/L Chloride 87 L (98-107) mmol/L Carbon Dioxide 33 H (22-30) mmol/L Anion Gap 10 mmol/L BUN 39 H (9-20) mg/dL Creatinine 1.17 (0.66-1.25) mg/dL Est GFR (CKD-EPI)AfAm 73 (>60 ml/min/1.73 sqM) Est GFR (CKD-EPI)NonAf 63 (>60 ml/min/1.73 sqM) Glucose 121 H (74-99) mg/dL Calcium 8.8 (8.4-10.2) mg/dL Magnesium 1.5 L (1.6-2.3) mg/dL Urine Color Urine Appearance (Clear) Urine pH (5.0-8.0) Ur Specific [place] (1.001-1.035) Urine Protein (Negative) Urine Glucose (UA) (Negative) Urine Ketones (Negative) Urine Blood (Negative) Urine Nitrite (Negative) Urine Bilirubin (Negative) Urine Urobilinogen (<2.0) mg/dL Ur Leukocyte Esterase (Negative) 05/30/18 Range/Units 21:24 WBC (3.8-10.6) k/uL RBC (4.30-5.90) m/uL Hgb (13.0-17.5) gm/dL Hct (39.0-53.0) % MCV (80.0-100.0) fL MCH (25.0-35.0) pg MCHC (31.0-37.0) g/dL RDW (11.5-15.5) % Plt Count (150-450) k/uL Neutrophils % (Manual) % Lymphocytes % (Manual) % Monocytes % (Manual) % Neutrophils # (Manual) (1.3-7.7) k/uL Lymphocytes # (Manual) (1.0-4.8) k/uL Monocytes # (Manual) (0-1.0) k/uL Nucleated RBCs (0-0) /100 WBC Manual Slide Review Polychromasia PT (9.0-12.0) sec INR (<1.2) APTT (22.0-30.0) sec Sodium (137-145) mmol/L Potassium (3.5-5.1) mmol/L Chloride (98-107) mmol/L Carbon Dioxide (22-30) mmol/L Anion Gap mmol/L BUN (9-20) mg/dL Creatinine (0.66-1.25) mg/dL Est GFR (CKD-EPI)AfAm (>60 ml/min/1.73 sqM) Est GFR (CKD-EPI)NonAf (>60 ml/min/1.73 sqM) Glucose (74-99) mg/dL Calcium (8.4-10.2) mg/dL Magnesium (1.6-2.3) mg/dL Urine Color Yellow Urine Appearance Clear (Clear) Urine pH 6.5 (5.0-8.0) Ur Specific [place] 1.007 (1.001-1.035) Urine Protein Negative (Negative) Urine Glucose (UA) Negative (Negative) Urine Ketones Negative (Negative) Urine Blood Negative (Negative) Urine Nitrite Negative (Negative) Urine Bilirubin Negative (Negative) Urine Urobilinogen <2.0 (<2.0) mg/dL Ur Leukocyte Esterase Negative (Negative) Disposition Clinical Impression: Fall, Leukocytosis Disposition: HOME SELF-CARE Condition: Good Instructions (If sedation given, give patient instructions): Fall Prevention for Older Adults (ED) Is patient prescribed a controlled substance at d/c from ED?: No Referrals: Patrick Kessler DO [Primary Care Provider] - 1-2 days Time of Disposition: 22:10
[2018-05-30 20:38] LABS: Calcium 8.8 mg/dL (8.4-10.2); Magnesium 1.5 mg/dL (1.6-2.3); Potassium 3.2 mmol/L (3.5-5.1)
[2018-05-30 20:51] LABS: HCT 35.2 % (39.0-53.0); HGB 11.5 gm/dL (13.0-17.5); MCH 31.4 pg (25.0-35.0); MCHC 32.7 g/dL (31.0-37.0); MCV 95.9 fL (80.0-100.0); Mean Platelet Volume 8.3; Platelet Count 256 k/uL (150-450); RBC 3.67 m/uL (4.30-5.90); RDW 15.5 % (11.5-15.5); WBC 17.7 k/uL (3.8-10.6)
--- NOTE | 2018-05-30 21:06 | XR ---
EXAMINATION TYPE: XR knee complete RT DATE OF EXAM: 05/30/2018 COMPARISON: NONE HISTORY: Knee pain TECHNIQUE: 3 views FINDINGS: I see no fracture nor dislocation. There is no sign of joint effusion. Joint spaces are sendy rly normal. There is vascular calcification. IMPRESSION: No acute abnormality of the right knee.
--- NOTE | 2018-05-30 21:08 | XR ---
EXAMINATION TYPE: XR Hip RT and AP Pelvis DATE OF EXAM: 05/30/2018 COMPARISON: NONE HISTORY: Pain TECHNIQUE: A single AP view of the pelvis is obtained. Two views of the right hip are obtained. FINDINGS: The pelvic ring is intact. Proximal right femur and hip joint appear intact. There is no s ign of hip dysplasia. Sacroiliac joints appear intact. There is osteopenia. There is vascular calcification. IMPRESSION: No acute abnormality of the pelvis and right hip.
[2018-05-30 21:12] LABS: INR 1.2 (<1.2); Partial Thromboplastin Time 29.4 sec (22.0-30.0); Prothrombin Time 12.7 sec (9.0-12.0)
[2018-05-30 21:28] LABS: Monocytes # (M) 2.48 k/uL (0-1.0); Neutrophils # (M) 12.92 k/uL (1.3-7.7); Neutrophils % (M) 73 %; Nucleated Red Blood Cells 0 /100 WBC (0-0); Total Cells Counted 100
[2018-05-30 21:29] LABS: Polychromasia Present
[2018-05-30 21:33] LABS: Appearance,Urine Clear (Clear); Bilirubin,Urine Negative (Negative); Blood,Urine Negative (Negative); Color,Urine Yellow; Glucose,Urine (UA) Negative (Negative); Ketones,Urine Negative (Negative); Leukocyte Esterase,Urine Negative (Negative); Nitrite,Urine Negative (Negative); PH, Urine 6.5 (5.0-8.0); Protein,Urine Negative (Negative); Specific Gravity,Urine 1.007 (1.001-1.035); Urobilinogen,Urine <2.0 mg/dL (<2.0)
[2018-05-30] MEDS ORDERED: MAGNESIUM OXIDE 400 MG TAB PO STA (22:09)
[2018-05-30] MEDS ORDERED: POTASSIUM CHLORIDE ER 20 MEQ TAB.ER PO STA (22:09)
[2018-05-30 22:25] VITALS: BP 146/61; RESP 18
== END 2018-05-30 22:30 | disposition home or self-care (01) ==
LOC: EC 19:49
DX: Z04.3 Encounter for examination and observation following other accident (principal); D72.829 Elevated white blood cell count, unspecified; I48.91 Unspecified atrial fibrillation; I10 Essential (primary) hypertension; E78.5 Hyperlipidemia, unspecified; I25.2 Old myocardial infarction; Z79.01 Long term (current) use of anticoagulants; Z79.899 Other long term (current) drug therapy; Z85.828 Personal history of other malignant neoplasm of skin; Z95.2 Presence of prosthetic heart valve; Z87.891 Personal history of nicotine dependence; Z95.5 Presence of coronary angioplasty implant and graft; W19.XXXA Unspecified fall, initial encounter
CPT/HCPCS: 36415; 73502; 80048; 81003; 83735; 85025; 85610; 85730; 99284

== ENCOUNTER 2018-06-07 10:55 | Inpatient (IN) | payer MEDICARE, OTHER ==
--- NOTE | 2018-06-07 11:29 | ED ---
Weakness HPI - General Chief complaint: Weakness Stated complaint: Freq Falls Time Seen by Provider: 06/07/18 10:57 Source: patient, EMS Mode of arrival: EMS Limitations: no limitations - History of Present Illness Initial comments: Dictation was produced using [employer] dictation software. please excuse any grammatical, word or spelling errors. Chief Complaint: Patient is 68-year-old male past history of atrial fibrillation , hypertension, also arthritis presents with worsening debility and falls. History of Present Illness: He lives at home by himself. He is unable was for atrial fibrillation. Patient has multiple comorbidities. He presents today because he fell and couldn't get up. Yesterday he fell at home. He lives by himself. His children come to check on him every once in a while. Yesterday, and he was possibly on the ground for approximately one whole day. He was helped up. He was checked on again earlier today and was very sleepy. Patient does not know if he hit his head. Patient has been having difficulty ambulating given severe weakness. Outer was at bedside reports that his symptoms have been ongoing for several months now however seem to have rapidly progressed recently. Patient currently does not have any acute complaints. The ROS documented in this emergency department record has been reviewed and confirmed by me. Those systems with pertinent positive or negative responses h ave been documented in the HPI. All other systems are other negative and/or noncontributory. PHYSICAL EXAM: General Impression: Alert and oriented x3, not in acute distress HEENT: Normocephalic atraumatic, extra-ocular movements intact, pupils equal and reactive to light bilaterally, mucous membranes moist. Cardiovascular: Heart regular rate and rhythm, S1&S2 audible, no murmurs, rubs or gallops Chest: Lungs clear to auscultation bilaterally, no rhonchi, no wheeze, no rales Abdomen: Bowel sounds present, abdomen soft, non-tender, non-distended, no organomegaly Musculoskeletal: Pulses present and equal in all extremities, 3+ pitting edema to bilateral lower extremities extending from the dorsal feet to the knee region Motor: no focal deficits noted Neurological: CN II-XII grossly intact, no focal motor or sensory deficits noted Skin: Intact with no visualized rashes Psych: Normal affect and mood ED course: 68 yo male presents with recent fall. The last several weeks he's been having worsening debility and increased frequency of falls. He lives at home by himself and no one in his family is able to take care of him. Vital signs upon arrival shows him to 100.5, rest of vital signs within acceptable limits. Patient has no specific complaints at this time. Multiple comorbidi ties.Lab data evaluation obtained. Leukocytosis of 18.5 unknown significance. A be secondary to stress. Patient does not have any localizing symptoms to suggest infection. Coag panel shows INR 1.3. Blood gas shows alkalosis 7.68 likely metabolic. Patient's sodium 128, potassium 3.2. Patient given fluids and by mouth potassium. Patient has a lactic acidosis of 2.2. Patient has elevated BUN/creatinine ratio suggesting dehydration. Mild transaminitis. Troponin 0.447. Patient has elevated troponin however more elevated today. Patient started on low intensity heparin and given an aspirin. Pelvis x-ray, head and C-spine CT chest x-ray shows no acute traumatic issues. Given patient's social situation living at home without any primary gaggerman that's capable we will plan to have patient admitted for an STEMI. There is strong clinical suspicion of worsening heart failure causing patient's weakness. Only and patient are understandable and agreeable to disposition. EKG interpretation: Ventricular rate 71, sinus rhythm with first-degree AV block, WI interval 256, QRS 100, QTC 362. Compared to 05/22/2017 showing no changes. - Related Data Home Medications Medication Instructions Recorded Confirmed Atorvastatin [Lipitor] 80 mg PO HS 10/06/14 06/07/18 Metoprolol Tartrate [Lopressor] 25 mg PO BID 10/06/14 06/07/18 Multivit-Min/FA/Lycopene/Lut 1 tab PO DAILY 10/06/14 06/07/18 [Centrum Silver Tablet] [place]-3 Fatty Acids/Fish Oil [Fish 1 cap PO DAILY 10/06/14 06/07/18 Oil 1,000 mg Softgel] Amiodarone HCl [Pacerone] 200 mg PO DAILY 06/27/16 06/07/18 Spironolactone [Aldactone] 25 mg PO DAILY 05/15/17 06/07/18 Apixaban [Eliquis] 5 mg PO BID 09/24/17 06/07/18 Metolazone [Zaroxolyn] 2.5 mg PO DAILY 02/10/18 06/07/18 Furosemide [Lasix] 80 mg PO BID 04/07/18 06/07/18 Potassium Chloride ER [K-Dur 20] 20 meq PO BID 05/30/18 06/07/18 Ranitidine HCl [Zantac] 150 mg PO BID 05/30/18 06/07/18 Vitamin B Complex 1 cap PO DAILY 06/07/18 06/07/18 Previous Rx's Medication Instructions Recorded Nitroglycerin Sl Tabs [Nitrostat] 0.4 mg SUBLINGUAL Q5M PRN #25 tab 05/14/15 Gabapentin [Neurontin] 400 mg PO TID #90 cap 10/08/16 Isosorbide Mononitrate ER [Imdur] 15 mg PO DAILY dose 05/22/17 Allergies Allergy/AdvReac Type Severity Reaction Status Date / Time No Known Allergies Allergy Verified 06/07/18 12:27 Review of Systems ROS Statement: Those systems with pertinent positive or pertinent negative responses have been documented in the HPI. ROS Other: All systems not noted in ROS Statement are negative. Past Medical History Past Medical History: Atrial Fibrillation, Cancer, Hyperlipidemia, Hypertension, Myocardial Infarction ([place]), Osteoarthritis (OA), Vascular Disorder Additional Past Medical History / Comment(s): PVD, BACK PAIN, SWELLING IN ANKLES AND FEET, hx SKIN CANCER Last Myocardial Infarction Date:: 01-20-13 History of Any Multi-Drug Resistant Organisms: None Reported Past Surgical History: Heart Catheterization, Heart Catheterization With Stent Additional Past Surgical History / Comment(s): aortic valve replacement 2012, aortogram, pt states 2 failed stent replacement-1 to each leg, PAIN CLINIC PROCEDURES, ABDOMINAL AORTOGRAM, Past Anesthesia/Blood Transfusion Reactions: No Reported Reaction Date of Last Stent Placement:: 05/30/15 Past Psychological History: No Psychological Hx Reported Smoking Status: Former smoker Past Alcohol Use History: None Reported, Daily Past Drug Use History: None Reported - Past Family History Mother Family Medical History: Deep Vein Thrombosis (DVT) General Exam Limitations: no limitations Course Vital Signs 06/07/18 06/07/18 10:56 13:11 Temperature 100.5 F H Pulse Rate 76 82 Respiratory 24 18 Rate Blood Pressure 135/58 145/66 O2 Sat by Pulse 96 99 Oximetry Medical Decision Making - Lab Data Result diagrams: 06/07/18 11:34 06/07/18 11:34 Lab Results 06/07/18 06/07/18 06/07/18 Range/Units 11:34 11:34 11:34 WBC (3.8-10.6) k/uL RBC (4.30-5.90) m/uL Hgb (13.0-17.5) gm/dL Hct (39.0-53.0) % MCV (80.0-100.0) fL MCH (25.0-35.0) pg MCHC (31.0-37.0) g/dL RDW (11.5-15.5) % Plt Count (150-450) k/uL Neutrophils % (Manual) % Lymphocytes % (Manual) % Monocytes % (Manual) % Neutrophils # (Manual) (1.3-7.7) k/uL Lymphocytes # (Manual) (1.0-4.8) k/uL Monocytes # (Manual) (0-1.0) k/uL Nucleated RBCs (0-0) /100 WBC Manual Slide Review Poikilocytosis (manual Crenated Cell PT (9.0-12.0) sec INR (<1.2) VBG pH 7.68 H* (7.31-7.41) VBG pCO2 26 L (37-51) mmHg VBG HCO3 32 H (24-28) mmol/L Sodium 128 L (137-145) mmol/L Potassium 3.2 L (3.5-5.1) mmol/L Chloride 86 L (98-107) mmol/L Carbon Dioxide 34 H (22-30) mmol/L Anion Gap 8 mmol/L BUN 38 H (9-20) mg/dL Creatinine 1.06 (0.66-1.25) mg/dL Est GFR (CKD-EPI)AfAm 82 (>60 ml/min/1.73 sqM) Est GFR (CKD-EPI)NonAf 71 (>60 ml/min/1.73 sqM) Glucose 128 H (74-99) mg/dL Plasma Lactic Acid Faizan 2.2 H* (0.7-2.0) mmol/L Calcium 8.2 L (8.4-10.2) mg/dL Magnesium 1.8 (1.6-2.3) mg/dL Total Bilirubin 1.3 (0.2-1.3) mg/dL Conjugated Bilirubin 0.0 (0.0-0.3) mg/dL Unconjugated Bilirubin 1.0 (0.0-1.1) mg/dL Delta Bilirubin 0.3 H (0.0-0.2) mg/dL AST 83 H (17-59) U/L ALT 83 H (21-72) U/L Alkaline Phosphatase 148 H (38-126) U/L Ammonia 36 H (<30) umol/L Creatine Kinase 177 H (55-170) U/L Troponin I (0.000-0.034) ng/mL Total Protein 6.0 L (6.3-8.2) g/dL Albumin 2.8 L (3.5-5.0) g/dL Lipase 89 (23-300) U/L Serum Alcohol <10 mg/dL Influenza Type A RNA (Not Detectd) Influenza Type B (PCR) (Not Detectd) 06/07/18 06/07/18 06/07/18 Range/Units 11:34 11:34 11:34 WBC 18.5 H (3.8-10.6) k/uL RBC 3.31 L (4.30-5.90) m/uL Hgb 10.3 L (13.0-17.5) gm/dL Hct 31.5 L (39.0-53.0) % MCV 95.1 (80.0-100.0) fL MCH 31.2 (25.0-35.0) pg MCHC 32.8 (31.0-37.0) g/dL RDW 15.9 H (11.5-15.5) % Plt Count 271 (150-450) k/uL Neutrophils % (Manual) 84 % Lymphocytes % (Manual) 7 % Monocytes % (Manual) 9 % Neutrophils # (Manual) 15.54 H (1.3-7.7) k/uL Lymphocytes # (Manual) 1.30 (1.0-4.8) k/uL Monocytes # (Manual) 1.67 H (0-1.0) k/uL Nucleated RBCs 0 (0-0) /100 WBC Manual Slide Review Performed Poikilocytosis (manual Present Crenated Cell Present PT (9.0-12.0) sec INR (<1.2) VBG pH (7.31-7.41) VBG pCO2 (37-51) mmHg VBG HCO3 (24-28) mmol/L Sodium (137-145) mmol/L Potassium (3.5-5.1) mmol/L Chloride (98-107) mmol/L Carbon Dioxide (22-30) mmol/L Anion Gap mmol/L BUN (9-20) mg/dL Creatinine (0.66-1.25) mg/dL Est GFR (CKD-EPI)AfAm (>60 ml/min/1.73 sqM) Est GFR (CKD-EPI)NonAf (>60 ml/min/1.73 sqM) Glucose (74-99) mg/dL Plasma Lactic Acid [place] (0.7-2.0) mmol/L Calcium (8.4-10.2) mg/dL Magnesium (1.6-2.3) mg/dL Total Bilirubin (0.2-1.3) mg/dL Conjugated Bilirubin (0.0-0.3) mg/dL Unconjugated Bilirubin (0.0-1.1) mg/dL Delta Bilirubin (0.0-0.2) mg/dL AST (17-59) U/L ALT (21-72) U/L Alkaline Phosphatase (38-126) U/L Ammonia (<30) umol/L Creatine Kinase (55-170) U/L Troponin I 0.447 H* (0.000-0.034) ng/mL Total Protein (6.3-8.2) g/dL Albumin (3.5-5.0) g/dL Lipase (23-300) U/L Serum Alcohol mg/dL Influenza Type A RNA Not Detected (Not Detectd) Influenza Type B (PCR) Not Detected (Not Detectd) 06/07/18 Range/Units 12:32 WBC (3.8-10.6) k/uL RBC (4.30-5.90) m/uL Hgb (13.0-17.5) gm/dL Hct (39.0-53.0) % MCV (80.0-100.0) fL MCH (25.0-35.0) pg MCHC (31.0-37.0) g/dL RDW (11.5-15.5) % Plt Count (150-450) k/uL Neutrophils % (Manual) % Lymphocytes % (Manual) % Monocytes % (Manual) % Neutrophils # (Manual) (1.3-7.7) k/uL Lymphocytes # (Manual) (1.0-4.8) k/uL Monocytes # (Manual) (0-1.0) k/uL Nucleated RBCs (0-0) /100 WBC Manual Slide Review Poikilocytosis (manual Crenated Cell PT 13.3 H (9.0-12.0) sec INR 1.3 H (<1.2) VBG pH (7.31-7.41) VBG pCO2 (37-51) mmHg VBG HCO3 (24-28) mmol/L Sodium (137-145) mmol/L Potassium (3.5-5.1) mmol/L Chloride (98-107) mmol/L Carbon Dioxide (22-30) mmol/L Anion Gap mmol/L BUN (9-20) mg/dL Creatinine (0.66-1.25) mg/dL Est GFR (CKD-EPI)AfAm (>60 ml/min/1.73 sqM) Est GFR (CKD-EPI)NonAf (>60 ml/min/1.73 sqM) Glucose (74-99) mg/dL Plasma Lactic Acid Faizan (0.7-2.0) mmol/L Calcium (8.4-10.2) mg/dL Magnesium (1.6-2.3) mg/dL Total Bilirubin (0.2-1.3) mg/dL Conjugated Bilirubin (0.0-0.3) mg/dL Unconjugated Bilirubin (0.0-1.1) mg/dL Delta Bilirubin (0.0-0.2) mg/dL AST (17-59) U/L ALT (21-72) U/L Alkaline Phosphatase (38-126) U/L Ammonia (<30) umol/L Creatine Kinase (55-170) U/L Troponin I (0.000-0.034) ng/mL Total Protein (6.3-8.2) g/dL Albumin (3.5-5.0) g/dL Lipase (23-300) U/L Serum Alcohol mg/dL Influenza Type A RNA (Not Detectd) Influenza Type B (PCR) (Not Detectd) Disposition Clinical Impression: NSTEMI (non-ST elevated myocardial infarction), Weakness Disposition: ADMITTED IP TO THIS HOSP Condition: Fair Referrals: Patrick Kessler DO [Primary Care Provider] - 1-2 days Decision Time: 14:39
[2018-06-07 12:07] LABS: VBG PH 7.68 (7.31-7.41)
[2018-06-07 12:14] LABS: ALT 83 U/L (21-72); AST 83 U/L (17-59); Albumin 2.8 g/dL (3.5-5.0); Alcohol <10 mg/dL; Alkaline Phosphatase 148 U/L (38-126); Anion Gap 8 mmol/L; Bilirubin, Delta 0.3 mg/dL (0.0-0.2); Blood Urea Nitrogen 38 mg/dL (9-20); Calcium 8.2 mg/dL (8.4-10.2); Carbon Dioxide 34 mmol/L (22-30); Chloride 86 mmol/L (98-107); Creatine Kinase 177 U/L (55-170); Glucose 128 mg/dL (74-99); Lipase 89 U/L (23-300); Magnesium 1.8 mg/dL (1.6-2.3); Potassium 3.2 mmol/L (3.5-5.1); Sodium 128 mmol/L (137-145); Total Bilirubin 1.3 mg/dL (0.2-1.3)
[2018-06-07 12:18] LABS: HCT 31.5 % (39.0-53.0); HGB 10.3 gm/dL (13.0-17.5); MCH 31.2 pg (25.0-35.0); MCHC 32.8 g/dL (31.0-37.0); MCV 95.1 fL (80.0-100.0); Mean Platelet Volume 7.6; Platelet Count 271 k/uL (150-450); RBC 3.31 m/uL (4.30-5.90); RDW 15.9 % (11.5-15.5); WBC 18.5 k/uL (3.8-10.6)
--- NOTE | 2018-06-07 12:20 | XR ---
EXAMINATION TYPE: XR chest 2V DATE OF EXAM: 06/07/2018 COMPARISON: 05/18/2017 HISTORY: 68-year-old male with pain after fall this morning, dizziness TECHNIQUE: AP and lateral views FINDINGS: Sternotomy wires. Heart mildly enlarged. Diffuse interstitial prominence appears in part chronic. Hyp erinflation with flattening of the hemidiaphragms. Some bibasilar densities probably represent atelec tasis. Otherwise, no mary consolidation or pleural effusion. IMPRESSION: Cardiomegaly and underlying COPD. Some strandy appearing opacities at the lung bases likely atelectas is.
--- NOTE | 2018-06-07 12:22 | XR ---
EXAMINATION TYPE: XR pelvis AP view DATE OF EXAM: 06/07/2018 COMPARISON: NONE HISTORY: 68-year-old male with pain after fall this morning FINDINGS: Osteopenia. Mild degenerative joint space narrowing in both hips. Vascular calcifications on both cruzito es. No displaced fractures. IMPRESSION: Mild degenerative joint space narrowing on both sides. Osteopenia. No displaced fracture seen. If pat ient nonweightbearing, MRI can provide more sensitive evaluation.
[2018-06-07 12:24] LABS: Lactic Acid, Venous 2.2 mmol/L (0.7-2.0)
[2018-06-07 12:36] LABS: Monocytes # (M) 1.67 k/uL (0-1.0); Neutrophils # (M) 15.54 k/uL (1.3-7.7); Neutrophils % (M) 84 %; Nucleated Red Blood Cells 0 /100 WBC (0-0); Poikilocytosis (M) Present; Total Cells Counted 100
[2018-06-07 12:37] LABS: Crenated RBC Present
[2018-06-07] MEDS ORDERED: SODIUM CHLORIDE 0.9% 1,000 ML IV STA (12:42)
[2018-06-07] MEDS ORDERED: HEPARIN SODIUM,PORCINE 5,000 UNIT/ML 1 ML VIAL IV ONE (12:44)
[2018-06-07] MEDS ORDERED: HEPARIN SODIUM,PORCINE 5,000 UNIT/ML 1 ML VIAL IV PRN (12:44)
[2018-06-07] MEDS ORDERED: HEPARIN SOD,PORK IN 0.45% NACL 25,000 UNIT in 0.45% NACL 1 250ML.BAG IV SCH (12:45)
[2018-06-07 13:23] LABS: INR 1.3 (<1.2); Prothrombin Time 13.3 sec (9.0-12.0)
--- NOTE | 2018-06-07 13:42 | CT ---
EXAMINATION TYPE: CT brain marco a stovall DATE OF EXAM: 06/07/2018 COMPARISON: None HISTORY: 68-year-old male with pain, Frequent falls CT DLP: 1345.5 mGycm Automated exposure control for dose reduction was used. Technique: Examination of the head was done in axial plane without intravenous contrast. Coronal and sagittal reconstructions performed. CT of the cervical spine was obtained in axial plane without intravenous injection of contrast mater ial. Coronal and sagittal reformatted images were obtained from the axial views for evaluation of f ractures, spinal alignment and canal. FINDINGS: Head: There is no evidence of acute intracranial hemorrhage, acute ischemic changes, mass, mass-effect, or extra-axial fluid collection. There is no effacement of cerebral sulci or basal subarachnoid cister ns. There is no hydrocephalus. There is no midline shift. [place]-white matter distinction is preserv ed. Moderate generalized supratentorial volume loss. Patchy periventricular white matter hypodensities. O ld lacunar infarct left basal ganglia. Atherosclerotic calcification within the carotid siphons and p roximal V4 segment vertebral arteries. Paranasal sinuses show trace mucosal thickening inferior maxillary sinuses. Orbits and globes are int act. Mastoid air cells well pneumatized. Cervical spine: No craniocervical junction abnormally, predental space widening, or prevertebral soft tissue swelling . Degenerative changes of the C1 dens articulation. Moderate degenerative disc disease mid to lower cervical spine. Discussed by complex causes mild narr owing of the spinal canal at C5-C6. Assessment of the spinal canal below is limited due to artifact f rom patient's shoulders. Multilevel facet and uncovertebral joint degenerative change. Changes result in very minimal mild neuroforaminal stenoses especially in the mid to lower cervical s pine. No acute fracture. Alignment is maintained. Sagittal and coronal reformatted images confirm above findings. COMBINED IMPRESSION: 1. Mild to moderate atrophy and mild changes of chronic small vessel ischemic disease. Old lacunar in farct left basal ganglia. No acute intracranial pathology seen. 2. No acute fracture or malalignment of the cervical spine. Mild to moderate spondylotic change.
[2018-06-07] MEDS ORDERED: POTASSIUM CHLORIDE ER 20 MEQ TAB.ER PO STA (14:00)
[2018-06-07] MEDS ORDERED: NALOXONE 0.4 MG/ML 1 ML VIAL IV PRN ×2 (14:35→20:55)
[2018-06-07] MEDS ORDERED: ASPIRIN 81 MG PO STA (14:37)
[2018-06-07] MEDS ORDERED: SODIUM CHLORIDE 0.9% 1,000 ML IV SCH (14:45)
[2018-06-07] MEDS ORDERED: NITROGLYCERIN SL TABS 0.4 MG TAB SUBLINGUAL PRN (15:13)
[2018-06-07] MEDS: GABAPENTIN 100 MG CAP PO SCH ×2 (17:41→21:30)
[2018-06-07 19:42] LABS: Appearance,Urine Clear (Clear); Bilirubin,Urine Negative (Negative); Blood,Urine Negative (Negative); Color,Urine Yellow; Glucose,Urine (UA) Negative (Negative); Ketones,Urine Negative (Negative); Leukocyte Esterase,Urine Negative (Negative); Nitrite,Urine Negative (Negative); Protein,Urine Negative (Negative)
[2018-06-07] MEDS ORDERED: ATORVASTATIN 80 MG TAB PO SCH (21:00)
[2018-06-07] MEDS ORDERED: APIXABAN 5 MG TAB PO SCH (21:00)
[2018-06-07] MEDS: METOPROLOL TARTRATE 25 MG TAB PO SCH (21:30)
[2018-06-07] MEDS: FUROSEMIDE 10 MG/ML 4 ML VIAL IV SCH (21:30)
[2018-06-07] MEDS: FAMOTIDINE 20 MG TAB PO SCH (21:30)
--- NOTE | 2018-06-07 22:22 | HP ---
HISTORY AND PHYSICAL DATE OF ADMISSION: 06/07/2018 PRESENT COMPLAINT: Weak, falls. HISTORY OF PRESENTING COMPLAINT: This is a pleasant 68-year-old patient that follows with Dr. Kessler. Rather extensive medical history. Chronic stable medical conditions include congestive heart failure, diastolic dysfunction, paroxysmal atrial fibrillation, hypertension, aortic valve replacement, peripheral artery disease, osteoarthritis, coronary artery disease, hyperlipidemia, diverticulosis, Zhu's esophagus. The patient's daughter is present. The patient drinks at least about 9 beers a day. Lives by himself. Uses a walker. The patient presented with multitude of symptoms. Has been progressively getting weaker. The patient has fallen twice, gets dizzy, decreased appetite. The patient has some chronic edema. Abdomen has been more distended. Last bowel movement 3 days ago. Has had some chills. No obvious fever. The temperature was 100.5 on presentation. There is no chest pain, just tired and run down. REVIEW OF SYSTEMS: CONSTITUTIONAL: As above. HEENT: None. RESPIRATORY: Short of breath. CARDIOVASCULAR: No chest pain. GASTROINTESTINAL: As above. Last bowel movement 3 days ago. GENITOURINARY: None. MUSCULOSKELETAL: Denies weakness in the muscles. DERMATOLOGICAL, HEMATOLOGIC, LYMPHATICS: None. PSYCHIATRY: None. NEUROLOGICAL: No focal signs. No change in speech or vision. PAST MEDICAL HISTORY: Congestive heart failure from diastolic dysfunction, paroxysmal atrial fibrillation, hypertension, aortic valve regurgitation, peripheral artery disease, osteoarthritis, coronary artery disease, hyperlipidemia, colonic diverticulosis, Zhu's esophagus. PAST SURGICAL HISTORY: Cardiac cath with stent, aortic valve replaced in 2012, has had stent placement to each leg, ( ) procedures, abdominal aortogram. SOCIAL HISTORY: The patient smoked for more than 50 years, stopped in 2014. Drinks at least 9 beers a day. Lives by himself. Has a walker. FAMILY HISTORY: DVT. HOME MEDICATIONS: 1. Vitamin B complex 1 capsule p.o. daily. 2. Aldactone 25 mg p.o. daily. 3. Zantac 150 mg b.i.d. 4. Potassium 20 mEq b.i.d. 5. Fish oil 1000 mg 1 capsule p.o. daily. 6. Nitrostat 0.4 sublingual q.5 p.r.n. 7. Centrum Silver 1 tablet p.o. daily. 8. Lopressor 25 mg b.i.d. 9. Zaroxolyn 2.5 p.o. daily. 10.Imdur ER 50 mg p.o. daily. 11.Neurontin 400 mg p.o. t.i.d. 12.Lasix 80 mg b.i.d. 13.Lipitor 80 mg at bedtime. 14.Eliquis 5 mg p.o. b.i.d. 15.Amiodarone 200 mg p.o. b.i.d. ALLERGIES: None. PHYSICAL EXAMINATION: Vital signs on presentation: Temperature 100.5, pulse 76, respiratory rate 24, blood pressure 135/58, pulse ox 96 percent on room air. GENERAL APPEARANCE: Well built, BMI 36.3. Lying in bed, tired-appearing. EYES: Pupils equal. Conjunctivae normal. HEENT: External appearance of ears and nose normal. Oral cavity normal. NECK: JVD unable to assess. Mass not palpable. Respiratory effort increased. LUNGS: Diminished breath sounds. CARDIOVASCULAR: First and second sounds normal. Some edema present. ABDOMEN: Distended, soft. Liver and spleen not palpable. Dullness to percussion in the flanks. LYMPHATICS: No lymph node palpable in neck or axillae. PSYCHIATRY: Alert and oriented x3. Mood and affect normal. NEUROLOGICAL: Pupils equal. Cranial nerves intact. Generalized weakness in the muscles with difficulty lifting his legs. INVESTIGATIONS: White count 18.5, hemoglobin 10.3, sodium 128, potassium 3.2, BUN 38, creatinine 1.06. AST and ALT 83, alkaline phosphatase 148, ammonia 36. Troponin 0.447, 0.398. Lipase 89. UA negative. Influenza A and B negative. Serum alcohol less than 10. EKG tracing personally reviewed by me shows ST-segment depression in V3 to V6 and also in the inferior leads. Pelvis x-ray and cervical spine CT no obvious fractures. Chest x- ray film personally reviewed by me shows cardiomegaly and some venous prominence. ASSESSMENT: 1. 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 It is noted that the patient is also on high dose of Lipitor. 2. Distended abdomen with some clinical evidence of ascites. Will need to get a ultrasound to rule out alcoholic liver disease and secondary ascites. 3. Acute congestive heart failure exacerbation, ejection fraction currently not known. 4. Essential hypertension. 5. Aortic valve replaced. 6. Peripheral artery disease. 7. Primary osteoarthritis. 8. Coronary artery disease. 9. Hyperlipidemia. 10.Zhu's esophagus. 11.Colonic diverticulosis. 12.Obesity, BMI 36.6. 13.Chronic alcoholism. PLAN: Patient is put on IV heparin in the ER. The patient does not have a presentation that of acute coronary syndrome, troponin leak probably from hemodynamic mismatch and probably from the CHF. At this point we will put the patient on IV Lasix. Also continue with Aldactone. Get a 2-D echocardiogram. Cardiology is already consulted. We will also get abdominal ultrasound to look at the liver. Will do a CIWA scale. We will hold off the Lipitor temporarily and we will also get physical therapy. Expect the patient to be in the hospital at least for two nights because of his generalized weak condition. AVIVA / PRICE: [phone] /
[2018-06-08] MEDS ORDERED: IPRATROPIUM-ALBUTEROL 3 ML NEB INHALATION STA (00:29)
[2018-06-08] MEDS ORDERED: FUROSEMIDE 10 MG/ML 2 ML VIAL IV ONE (00:47)
[2018-06-08 00:50] LABS: Glucose,Whole Blood 142 mg/dL (75-99)
--- NOTE | 2018-06-08 00:54 | XR ---
EXAM: XR Chest, 1 View CLINICAL HISTORY: SOB TECHNIQUE: Frontal view of the chest. COMPARISON: No relevant prior studies available. FINDINGS: Lungs: Pulmonary vascular congestion. Stable bilateral pulmonary hyperinflation. Pleural space: Unremarkable. No pneumothorax. Heart: Stable cardiomediastinal silhouette. Mediastinum: Stable postoperative mediastinum. Bones/joints: No acute osseous abnormality. Tubes, lines and devices: Telemetry leads overlie the patient. IMPRESSION: Pulmonary vascular congestion.
[2018-06-08 07:42] LABS: Potassium 3.8 mmol/L (3.5-5.1)
--- NOTE | 2018-06-08 08:24 | P.CRDCN ---
History of Present Illness Consult date: 06/08/18 Requesting physician: Jin Partida Consult reason: congestive heart failure Chief complaint: Falls, shortness of breath History of present illness: This is a 68-year-old gentleman who follows regularly with Dr. VC Rodas in the office. He has a known history of hypertension, hyperlipidemia, paroxysmal persistent atrial fibrillation, coronary artery disease with prior bypass surgery and aortic valve replacement in 2013. He is on Eliquis 5 mg one tablet by mouth twice a day for anticoagulation. He presents to the hospital on this occasion with symptoms of falls, as well as worsening in shortness of breath and bilateral lower extremity edema. According to the patient he has had up to 3 falls at home, he denies any dizziness or lightheadedness, no syncopal episodes. He states that his legs become extremely weak and gave out on him he also states that over the past couple of days he has noticed himself to be more short of breath than usual. For this reason he came to the hospital for further evaluation and treatment. Chest x-ray on arrival here showed cardiomegaly with underlying COPD. 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 No acute fracture of the spine. His EKG showed a normal sinus rhythm with first- degree AV block and nonspecific ST-T wave changes. Repeat chest x-ray this morning does show pulmonary vascular congestion. Blood pressure 122/60 with a heart rate in the 60s, 93% on 5 L of oxygen. White blood cell count 18.5, hemoglobin 10.3, platelet count 271. Sodium on admission 128, 129 this morning, BUN 37 creatinine 1.0. Potassium 3.2 on admission which was replaced, 3.8 this morning. AST 83 ALT 83 alk phos 148, BNP level 84981. Troponin 0.44 0.39 0.36. Patient was initiated on IV Lasix in the emergency room, he has put out 3300 and urine. At the time of my examination this morning, he is sitting up in his bedside, complains of feeling mildly weak. Breathing is overall stable. Past Medical History Past Medical History: Atrial Fibrillation, Cancer, GI Bleed, Hyperlipidemia, Hypertension, Myocardial Infarction ([place]), Osteoarthritis (OA), Vascular Disorder Additional Past Medical History / Comment(s): PVD, BACK PAIN, SWELLING IN ANKLES AND FEET, hx SKIN CANCER Last Myocardial Infarction Date:: 01-20-13 History of Any Multi-Drug Resistant Organisms: None Reported Past Surgical History: Heart Catheterization, Heart Catheterization With Stent Additional Past Surgical History / Comment(s): aortic valve replacement 2012, aortogram, pt states 2 failed stent replacement-1 to each leg, PAIN CLINIC PROCEDURES, ABDOMINAL AORTOGRAM, Past Anesthesia/Blood Transfusion Reactions: No Reported Reaction Date of Last Stent Placement:: 05/30/15 Past Psychological History: No Psychological Hx Reported Smoking Status: Former smoker Past Alcohol Use History: None Reported, Daily Additional Past Alcohol Use History / Comment(s): Quit smoking October 2014, smoked for >50 yrs. STATES DRINKS 6 -7 BEERS DAILY. Past Drug Use History: None Reported - Past Family History Mother Family Medical History: Deep Vein Thrombosis (DVT) Medications and Allergies Home Medications Medication Instructions Recorded Confirmed Type Atorvastatin [Lipitor] 80 mg PO HS 10/06/14 06/07/18 History Metoprolol Tartrate [Lopressor] 25 mg PO BID 10/06/14 06/07/18 History Multivit-Min/FA/Lycopene/Lut 1 tab PO DAILY 10/06/14 06/07/18 History [Centrum Silver Tablet] [place]-3 Fatty Acids/Fish Oil [Fish 1 cap PO DAILY 10/06/14 06/07/18 History Oil 1,000 mg Softgel] Nitroglycerin Sl Tabs [Nitrostat] 0.4 mg SUBLINGUAL Q5M PRN #25 tab 05/14/15 06/07/18 Rx Amiodarone HCl [Pacerone] 200 mg PO DAILY 06/27/16 06/07/18 History Gabapentin [Neurontin] 400 mg PO TID #90 cap 10/08/16 06/07/18 Rx Spironolactone [Aldactone] 25 mg PO DAILY 05/15/17 06/07/18 History Isosorbide Mononitrate ER [Imdur] 15 mg PO DAILY dose 05/22/17 06/07/18 Rx Apixaban [Eliquis] 5 mg PO BID 09/24/17 06/07/18 History Metolazone [Zaroxolyn] 2.5 mg PO DAILY 02/10/18 06/07/18 History Furosemide [Lasix] 80 mg PO BID 04/07/18 06/07/18 History Potassium Chloride ER [K-Dur 20] 20 meq PO BID 05/30/18 06/07/18 History Ranitidine HCl [Zantac] 150 mg PO BID 05/30/18 06/07/18 History Vitamin B Complex 1 cap PO DAILY 06/07/18 06/07/18 History Allergies Allergy/AdvReac Type Severity Reaction Status Date / Time No Known Allergies Allergy Verified 06/07/18 12:27 Physical Exam Vitals: Vital Signs Temp Pulse Pulse Resp BP BP Pulse Ox 06/08/18 04:00 98.9 F 64 22 123/64 93 L 06/08/18 01:53 98.9 F 100 28 H 144/88 94 L 06/08/18 01:49 28 H 06/08/18 00:50 100 06/08/18 00:37 100 06/08/18 00:00 99.2 F 77 21 108/56 94 L 06/07/18 20:00 98.2 F 70 19 106/54 96 06/07/18 18:24 99 F 61 19 109/62 95 06/07/18 16:29 98.5 F 06/07/18 16:00 105/42 97 06/07/18 13:11 82 18 145/66 99 06/07/18 13:04 67 06/07/18 12:10 70 06/07/18 11:06 76 97 06/07/18 10:56 100.5 F H 76 24 135/58 96 Intake and Output 06/07/18 06/08/18 06/08/18 22:59 06:59 14:59 Intake Total 794.772 200 240 Output Total 1800 650 Balance -1005.228 -450 240 Intake: Intake, IV Titration 194.772 80 Amount Heparin Sod,Pork in 0.45% 114.772 NaCl 25,000 unit In 0.45 % NaCl 1 250ml.bag @ 8.1 UNITS/KG/HR 9.92 mls/hr IV .Q24H CARLOS Rx#: [id number] Sodium Chloride 0.9% 1, 80 80 000 ml @ 80 mls/hr IV . [id number] CARLOS Rx#:[id number] Oral 600 120 240 Output: Urine 1800 650 Straight 900 Other: Voiding Method Indwelling Catheter # Voids 0 Weight 122.5 kg PHYSICAL EXAMINATION: GENERAL: 68-year-old gentleman in no acute distress at the time of my examination HEENT: Head is atraumatic, normocephalic. Pupils equal, round. Sclera anicteric. Conjunctiva are clear. Mucous membranes of the mouth are moist. Neck is supple. There is no elevated jugular venous pressure. No carotid bruit is heard. HEART EXAMINATION: Heart S1 S2 1 systolic murmur is heard. CHEST EXAMINATION: Lungs are clear with diminished air entry to bilateral bases. ABDOMEN: Soft, obese, nontender. Bowel sounds are heard. No organomegaly noted. EXTREMITIES: 2+ peripheral pulses with trace to 1+ evidence of peripheral edema and no calf tenderness noted. NEUROLOGIC patient is awake, alert and oriented 3 . . Results 06/07/18 11:34 06/08/18 06:40 Cardiac Enzymes 06/07/18 06/07/18 06/07/18 Range/Units 11:34 11:34 19:11 AST 83 H (17-59) U/L Troponin I 0.447 H* 0.398 H* (0.000-0.034) ng/mL 06/07/18 Range/Units 22:22 AST (17-59) U/L Troponin I 0.366 H* (0.000-0.034) ng/mL Coagulation 06/07/18 06/07/18 Range/Units 12:32 19:11 PT 13.3 H (9.0-12.0) sec APTT 33.9 H (22.0-30.0) sec Lipids 06/08/18 Range/Units 06:40 Triglycerides 70 (<150) mg/dL Cholesterol 104 (<200) mg/dL HDL Cholesterol 22 L (40-60) mg/dL CBC 06/07/18 Range/Units 11:34 WBC 18.5 H (3.8-10.6) k/uL RBC 3.31 L (4.30-5.90) m/uL Hgb 10.3 L (13.0-17.5) gm/dL Hct 31.5 L (39.0-53.0) % Plt Count 271 (150-450) k/uL Comprehensive Metabolic Panel 06/07/18 06/08/18 Range/Units 11:34 06:40 Sodium 128 L 129 L (137-145) mmol/L Potassium 3.2 L 3.8 (3.5-5.1) mmol/L Chloride 86 L 90 L (98-107) mmol/L Carbon Dioxide 34 H 31 H (22-30) mmol/L BUN 38 H 37 H (9-20) mg/dL Creatinine 1.06 1.00 (0.66-1.25) mg/dL Glucose 128 H 114 H (74-99) mg/dL Calcium 8.2 L 8.0 L (8.4-10.2) mg/dL Unconjugated Bilirubin 1.0 (0.0-1.1) mg/dL AST 83 H (17-59) U/L ALT 83 H (21-72) U/L Alkaline Phosphatase 148 H (38-126) U/L Total Protein 6.0 L (6.3-8.2) g/dL Albumin 2.8 L (3.5-5.0) g/dL Current Medications Generic Name Dose Route Start Last Admin Trade Name Freq PRN Reason Stop Dose Admin Amiodarone HCl 200 mg 06/08/18 09:00 Cordarone PO DAILY [facility] Famotidine 20 mg 06/07/18 21:00 06/07/18 21:30 Pepcid PO 20 mg BID CARLOS Administration Furosemide 40 mg 06/07/18 22:00 06/07/18 21:30 Lasix IV 40 mg Q8HR CARLOS Administration Gabapentin 100 mg 06/07/18 16:00 06/07/18 21:30 Neurontin PO 100 mg TID CARLOS Administration Isosorbide Mononitrate 15 mg 06/08/18 09:00 Imdur PO DAILY CARLOS Metoprolol Tartrate 25 mg 06/07/18 21:00 06/07/18 21:30 Lopressor PO 25 mg BID CARLOS Administration Multivitamins 1 each 06/08/18 12:00 Theragran PO DAILY@1200 CARLOS Naloxone HCl 0.2 mg 06/07/18 14:35 Narcan IV Q2M PRN Opioid Reversal Naloxone HCl 0.2 mg 06/07/18 20:55 Narcan IV Q2M PRN Opioid Reversal Nitroglycerin 0.4 mg 06/07/18 15:13 Nitrostat SUBLINGUAL Q5M PRN Chest Pain Spironolactone 50 mg 06/08/18 09:00 Aldactone PO DAILY CARLOS Intake and Output 0306/08/18 06/08/18 22:59 06:59 14:59 Intake Total 794.772 200 240 Output Total 1800 650 Balance -1005.228 -450 240 Intake: Intake, IV Titration 194.772 80 Amount Heparin Sod,Pork in 0.45% 114.772 NaCl 25,000 unit In 0.45 % NaCl 1 250ml.bag @ 8.1 UNITS/KG/HR 9.92 mls/hr IV .Q24H CARLOS Rx#: [id number] Sodium Chloride 0.9% 1, 80 80 000 ml @ 80 mls/hr IV . [id number] CARLOS Rx#:[id number] Oral 600 120 240 Output: Urine 1800 650 Straight 900 Other: Voiding Method Indwelling Catheter # Voids 0 Weight 122.5 kg 06/07/18 11:34 06/08/18 06:40 EKG Interpretations (text) EKG shows normal sinus rhythm with first-degree AV block and nonspecific ST-T wave changes Assessment and Plan Plan: Assessment and plan #1 frequent falls, likely secondary to weakness and unsteadiness. #2 congestive heart failure exacerbation and acute on chronic, diastolic, most recent echo was performed in April 2017 which revealed an ejection fraction of 55-60%, normally functioning bioprosthetic valve. #3 history of coronary artery bypass grafting surgery and aortic valve replacement in 2012 #4 hypertension #5 hyperlipidemia #6 paroxysmal atrial fibrillation #7 obesity Plan We will obtain a repeat echocardiogram with Doppler study. Continue IV Lasix, monitoring intake and output along with daily weights and daily lytes BUN and creatinine. Physical therapy consultation. Further recommendations to follow. DNP note has been reviewed, I agree with a documented findings and plan of care. Patient was seen and examined.
[2018-06-08] MEDS ORDERED: NON-FORMULARY DRUG (Vitamin B Complex [Vitamin B Complex] 1 CAP) PO SCH (09:00)
[2018-06-08] MEDS ORDERED: ASPIRIN 325 MG TAB PO SCH (09:00)
[2018-06-08] MEDS: FUROSEMIDE 10 MG/ML 4 ML VIAL IV SCH ×3 (09:18→23:55)
[2018-06-08] MEDS: GABAPENTIN 100 MG CAP PO SCH ×3 (09:20→20:52)
[2018-06-08] MEDS: FAMOTIDINE 20 MG TAB PO SCH ×2 (09:20→20:51)
[2018-06-08] MEDS: ISOSORBIDE MONONITRATE ER 15 MG TAB PO SCH (09:20)
[2018-06-08] MEDS: AMIODARONE 200 MG TAB PO SCH (09:20)
[2018-06-08] MEDS: MULTIVITAMINS, THERA 1 EACH TAB PO SCH (09:21)
[2018-06-08] MEDS: SPIRONOLACTONE 25 MG TAB PO SCH (09:21)
[2018-06-08] MEDS: METOPROLOL TARTRATE 25 MG TAB PO SCH ×2 (09:21→20:51)
--- NOTE | 2018-06-08 11:04 | ECHOF ---
Referral Reason:chf MEASUREMENTS -------- HEIGHT: 182.9 cm WEIGHT: 122.5 kg BP: 123/65 IVSd: 1.4 cm (0.6 - 1.1) LVIDd: 5.0 cm (3.9 - 5.3) LVPWd: 1.5 cm (0.6 - 1.1) IVSs: 1.7 cm LVIDs: 4.0 cm LVPWs: 2.1 cm LA Diam: 4.8 cm (2.7 - 3.8) LAESV Index (A-L): 33.69 ml/m Ao Diam: 3.9 cm (2.0 - 3.7) AV Cusp: 1.4 cm (1.5 - 2.6) LA Diam: 4.8 cm (2.7 - 3.8) MV EXCURSION: 21.475 mm (> 18.000) MV EF SLOPE: 53 mm/s (70 - 150) EPSS: 1.6 cm MV E Reese: 1.04 m/s MV DecT: 249 ms MV A Reese: 0.87 m/s MV E/A Ratio: 1.20 AV maxP.29 mmHg AV meanP.14 mmHg RAP: 5.00 mmHg RVSP: 46.04 mmHg FINDINGS -------- Sinus rhythm. This was a techncally difficult study with suboptimal views, , Lumason utilized for enhancement of im ages. There is moderate concentric left ventricular hypertrophy. Overall left ventricular systolic functi on is low-normal with, an EF between 50 - 55 %. The right ventricle is normal in size. The left atrium is markedly dilated. The right atrial size is normal. 5.0mg OF Lumason UTLIZED: 2 OR MORE WALL SEGMENTS NOT VISUALIZED. The aortic valve was not well visualized. Peak/mean gradient across the Aortic Valve is 59.29mmHg / 37.14mmHg. 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 Mild mitral regurgitation is present. Mild tricuspid regurgitation present. There is mild to moderate pulmonary hypertension. The right ventricular systolic pressure, as measured by Doppler, is 46.04mmHg. There is no pulmonic regurgitation present. The aortic root size is normal. There is no pericardial effusion. CONCLUSIONS -------- 1. This was a techncally difficult study with suboptimal views, , Lumason utilized for enhancement of images. 2. There is moderate concentric left ventricular hypertrophy. 3. Overall left ventricular systolic function is low-normal with, an EF between 50 - 55 %. 4. The right ventricle is normal in size. 5. The left atrium is markedly dilated. 6. The right atrial size is normal. 7. 5.0mg OF Lumason UTLIZED: 2 OR MORE WALL SEGMENTS NOT VISUALIZED. 8. The aortic valve was not well visualized. 9. Peak/mean gradient across the Aortic Valve is 59.29mmHg / 37.14mmHg. 10. 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 11. Mild mitral regurgitation is present. 12. Mild tricuspid regurgitation present. 13. There is mild to moderate pulmonary hypertension. 14. The right ventricular systolic pressure, as measured by Doppler, is 46.04mmHg. 15. There is no pulmonic regurgitation present. 16. The aortic root size is normal. 17. There is no pericardial effusion. ECONOMICS INSTRUCTOR: Vaishnavi Barrett RDCS
[2018-06-08] MEDS ORDERED: VANCOMYCIN IV PER PHARMACY 1 EACH MISC MISCELLANE PRN (13:10)
[2018-06-08] MEDS ORDERED: VANCOMYCIN 2,000 MG in SODIUM CHLORIDE 0.9% 500 ML 500 ML IVPB ONE (14:00)
--- NOTE | 2018-06-08 15:08 | US ---
EXAMINATION TYPE: US abdomen complete DATE OF EXAM: 06/08/2018 COMPARISON: NONE CLINICAL HISTORY: abd distended/chronic alcoholism; prior aortic valve replacement EXAM MEASUREMENTS: Liver Length: 16.9 cm Gallbladder Wall: 0.2 cm CBD: 0.3 cm Spleen: 8.5 cm Right Kidney: 11.5 x 6.2 x 4.8 cm Left Kidney: 12.3 x 5.7 x 5.0 cm HT: 6'0 and WT: 270lbs. Pancreas: hyperechoic Liver: no masses seen Gallbladder: wnl Evidence for sonographic Colon's sign: no CBD: wnl Spleen: wnl Right Kidney: No hydronephrosis or masses seen Left Kidney: No hydronephrosis or masses seen Upper IVC: wnl Abd Aorta: size is wnl; ectatic appearance to upper aorta IMPRESSION: 1. Abdomen ultrasound appears within normal limits.
[2018-06-08] MEDS: DIAZEPAM 2 MG TAB PO SCH ×2 (15:41→20:52)
--- NOTE | 2018-06-08 19:05 | PN ---
PROGRESS NOTE DATE OF SERVICE: 06/08/2018 PRESENTING COMPLAINT: Weak, tired. INTERVAL HISTORY: The patient has multiple medical problems who drinks about 10 beers a day, presented weak, tired, dizzy, lightheaded, also felt to be in acute congestive heart failure per Cardiology, was put on IV Lasix. Patient's blood cultures are also coming back positive with gram-positive cocci. Vancomycin was initiated. The patient had an episode of acute confusion last night, felt to be DTs. The patient's family is at the bedside. The patient looks a shade better this morning. REVIEW OF SYSTEMS: Done for constitutional, cardiovascular, GI, pulmonary; relevant findings as above. Patient does feel a bit tired. CURRENT MEDICATIONS: Reviewed. They include Cordarone, IV Lasix. PHYSICAL EXAMINATION: Afebrile. Pulse 64, respiration 22, blood pressure 123/64, pulse ox 93% on 5 L. GENERAL APPEARANCE: Sitting on edge of the bed. Tired-appearing. EYES: Pupils equal. Conjunctivae normal. NECK: Unable to assess. Mass not palpable. RESPIRATORY: Effort increased. LUNGS: Diminished breath sounds. CARDIOVASCULAR: First and second sounds normal. Edema present. ABDOMEN: Distended, soft. Liver and spleen not palpable. PSYCHIATRY: Awake. Answering questions. Tired-appearing. INVESTIGATIONS: Sodium 129, potassium 3.8, BUN 37, creatinine 1.0. ProBNP 13,600. Troponin noted. Abdominal ultrasound negative for ascites. Two-D echocardiogram shows EF of 50% to 55%. ASSESSMENT: 1. Acute on chronic congestive heart failure from diastolic dysfunction, ejection fraction 50% to 55%. 2. Hypertensive heart disease. 3. Alcohol-induced myopathy. 4. Essential hypertension. 5. Aortic valve replaced. 6. Peripheral artery disease. 7. Primary osteoarthritis. 8. Coronary artery disease. 9. Hyperlipidemia. 10.Zhu's esophagus. 11.Colonic diverticulosis. 12.Obesity; body mass index 36.6. 13.Chronic alcoholism. 14.Acute delirium tremens from alcoholism. 15.Positive blood cultures with gram-positive cocci. Need to rule out contamination. PLAN: We will put the patient on Valium 2 mg q.8. The patient was seen by Therapy. Care was discussed with the family at the bedside. The patient is more awake today. Will discontinue the Tee catheter. Keep a close eye on I&O. The patient needs to improve his oral intake. Will follow. The patient has been put on IV vancomycin. Will await blood cultures. Continue with the same. MMODL / IJN: [id number] /
[2018-06-09] MEDS: VANCOMYCIN 2,000 MG in SODIUM CHLORIDE 0.9% 500 ML 500 ML IVPB SCH ×2 (02:06→16:50)
[2018-06-09 06:58] LABS: Calcium 8.2 mg/dL (8.4-10.2); Potassium 2.9 mmol/L (3.5-5.1)
[2018-06-09] MEDS: DIAZEPAM 2 MG TAB PO SCH ×2 (09:02→17:44)
[2018-06-09] MEDS: FUROSEMIDE 10 MG/ML 4 ML VIAL IV SCH (09:02)
[2018-06-09] MEDS: FAMOTIDINE 20 MG TAB PO SCH ×2 (09:02→22:07)
[2018-06-09] MEDS: GABAPENTIN 100 MG CAP PO SCH ×3 (09:02→22:07)
[2018-06-09] MEDS: SPIRONOLACTONE 25 MG TAB PO SCH (09:02)
[2018-06-09] MEDS: ISOSORBIDE MONONITRATE ER 15 MG TAB PO SCH (09:02)
[2018-06-09] MEDS: AMIODARONE 200 MG TAB PO SCH (09:02)
[2018-06-09] MEDS: METOPROLOL TARTRATE 25 MG TAB PO SCH ×2 (09:05→22:07)
--- NOTE | 2018-06-09 09:37 | P.CONS ---
History of Present Illness - Reason for Consult Consult date: 06/09/18 Positive blood culture - History of Present Illness This is a 68-year-old male patient that gives history of falling 3-4 times at home. He states he may have some bruising but denies any significant injuries. Patient has difficulty getting off the floor after his falls and has been on the floor for extended periods. He complains of generalized weakness and malaise and shortness of breath. He normally uses a walker for ambulation. He denies fever, chills or rigors at home, no cough or sputum production. He denies dysuria, urinary retention or difficulty with urinary flow. No significant joint or muscle aches. Patient states he had similar symptoms around 2 months ago with multiple falls but does not recall if he sought treatment at bedtime. He also gives history that he normally drinks 9-10 beers per day but quit drinking 3 weeks ago. His family determined that he needed to come into the [facility] emergency center for evaluation. Patient was found to have a temperature of 100.5. White count was 18.5. Electrolyte abnormalities included sodium 128, potassium 3.2, chloride 86, CO2 32, BUN was 38 and creatinine 1.06. AST 83, ALT 83, alkaline phosphatase 148. Ammonia level was 36. CK 177, proBNP 13,600, albumin 2.8, lipase normal. Troponin 0.447, 0.398, 0.366. Urinalysis was clear with nitrate and leukoesterase negative. Influenza testing negative. Alcohol less than 10. Blood culture was positive for strep species and thus this infectious disease consult was requested. A repeat blood culture was obtained last evening and is status received. A Tee catheter has been placed on this admission. Patient does have a bioprosthetic aortic valve. He is planning to go to subacute rehab at the time of discharge. Review of Systems All systems: negative Constitutional: Reports fatigue, Reports lethargy, Reports malaise, Reports poor appetite, Reports weakness, Denies chills, Denies fever Eyes: denies blurred vision, denies pain Ears, nose, mouth and throat: Reports vertigo, Denies dental pain, Denies dysphagia, Denies headache, Denies mouth pain, Denies nasal congestion, Denies nasal discharge, Denies sore throat Cardiovascular: Reports dyspnea on exertion, Reports lightheadedness, Denies chest pain, Denies edema, Denies orthopnea, Denies shortness of breath, Denies syncope Respiratory: Denies cough, Denies cough with sputum, Denies dyspnea, Denies excessive sputum, Denies hemoptysis, Denies home oxygen, Denies wheezing Gastrointestinal: Denies abdominal pain, Denies diarrhea, Denies nausea, Denies vomiting Genitourinary: Denies dysuria, Denies flank pain, Denies urinary hesitancy, Denies urinary retention Musculoskeletal: Reports frequent falls, Reports gait dysfunction, Reports muscle weakness, Denies myalgias Integumentary: Denies pruritus, Denies rash Neurological: Reports confusion, Denies aphasia, Denies numbness, Denies seizures, Denies weakness Psychiatric: Denies anxiety, Denies depression Endocrine: Denies fatigue, Denies weight change Past Medical History Past Medical History: Atrial Fibrillation, Cancer, GI Bleed, Hyperlipidemia, Hypertension, Myocardial Infarction (CA), Osteoarthritis (OA), Vascular Disorder Additional Past Medical History / Comment(s): PVD, BACK PAIN, SWELLING IN ANKLES AND FEET, hx SKIN CANCER Last Myocardial Infarction Date:: 01-20-13 History of Any Multi-Drug Resistant Organisms: None Reported Past Surgical History: Heart Catheterization, Heart Catheterization With Stent Additional Past Surgical History / Comment(s): aortic valve replacement 2012, aortogram, pt states 2 failed stent replacement-1 to each leg, PAIN CLINIC PROCEDURES, ABDOMINAL AORTOGRAM, Past Anesthesia/Blood Transfusion Reactions: No Reported Reaction Date of Last Stent Placement:: 05/30/15 Past Psychological History: No Psychological Hx Reported Smoking Status: Former smoker Past Alcohol Use History: None Reported, Daily Additional Past Alcohol Use History / Comment(s): Quit smoking October 2014, smoked for >50 yrs. Patient drinks 9-10 beers per day and quit 3 weeks ago. He is currently living alone. No pets in the home. 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 He was in the [employer] stationed in [place]. He denies any travel. Past Drug Use History: None Reported - Past Family History Mother Family Medical History: Deep Vein Thrombosis (DVT) Medications and Allergies Home Medications Medication Instructions Recorded Confirmed Type Atorvastatin [Lipitor] 80 mg PO HS 10/06/14 06/07/18 History Metoprolol Tartrate [Lopressor] 25 mg PO BID 10/06/14 06/07/18 History Multivit-Min/FA/Lycopene/Lut 1 tab PO DAILY 10/06/14 06/07/18 History [Centrum Silver Tablet] [place]-3 Fatty Acids/Fish Oil [Fish 1 cap PO DAILY 10/06/14 06/07/18 History Oil 1,000 mg Softgel] Nitroglycerin Sl Tabs [Nitrostat] 0.4 mg SUBLINGUAL Q5M PRN #25 tab 05/14/15 06/07/18 Rx Amiodarone HCl [Pacerone] 200 mg PO DAILY 06/27/16 06/07/18 History Gabapentin [Neurontin] 400 mg PO TID #90 cap 10/08/16 06/07/18 Rx Spironolactone [Aldactone] 25 mg PO DAILY 05/15/17 06/07/18 History Isosorbide Mononitrate ER [Imdur] 15 mg PO DAILY dose 05/22/17 06/07/18 Rx Apixaban [Eliquis] 5 mg PO BID 09/24/17 06/07/18 History Metolazone [Zaroxolyn] 2.5 mg PO DAILY 02/10/18 06/07/18 History Furosemide [Lasix] 80 mg PO BID 04/07/18 06/07/18 History Potassium Chloride ER [K-Dur 20] 20 meq PO BID 05/30/18 06/07/18 History Ranitidine HCl [Zantac] 150 mg PO BID 05/30/18 06/07/18 History Vitamin B Complex 1 cap PO DAILY 06/07/18 06/07/18 History Allergies Allergy/AdvReac Type Severity Reaction Status Date / Time No Known Allergies Allergy Verified 06/07/18 12:27 Physical Exam Vitals: Vital Signs Temp Pulse Resp BP Pulse Ox 06/09/18 08:31 97 06/09/18 04:00 98.9 F 66 22 103/64 92 L 06/09/18 00:00 98.7 F 63 23 110/74 91 L 06/08/18 20:00 98.8 F 64 23 104/68 90 L 06/08/18 15:30 98.7 F 56 L 16 123/50 100 06/08/18 11:50 98.3 F 53 L 16 117/45 96 06/08/18 10:34 93 L Intake and Output 06/08/18 06/09/18 06/09/18 22:59 06:59 14:59 Intake Total 0 620 240 Output Total 1100 Balance 0 -480 240 Intake: Intake, IV Titration 500 Amount Vancomycin 2,000 mg In 500 Sodium Chloride 0.9% 500 ml 500 ml @ 167 mls/hr IVPB ONCE ONE Rx#: [id number] Oral 0 120 240 Output: Urine 1100 Other: Voiding Method Indwelling Catheter Indwelling Catheter Gen: This is a obese 68-year-old male. He is found sitting on the edge of the bed and appears to be comfortable and in no acute distress. No respiratory distress is noted. HEENT: Head is atraumatic, normocephalic. Pupils equal, round. Sclerae is anicteric. Conjunctiva pink. Mucous members of the mouth are moist. No oropharyngeal erythema or edema. Small abrasion to the left auricle. NECK: Supple. No JVD. No lymphadenopathy. No thyromegaly. LUNGS: Clear to auscultation. No wheezes or rhonchi. No intercostal retractions. HEART: Regular rate and rhythm. Systolic murmur. ABDOMEN: Soft. Bowel sounds are present. No masses. No tenderness. Positive soft umbilical hernia. EXTREMITIES: 1+ pedal edema. No calf tenderness. NEUROLOGICAL: Patient is awake, alert and oriented x3. Cranial nerves 2 through 12 are grossly intact. Results CBC & Chem 7: 06/07/18 11:34 06/09/18 05:58 Labs: Abnormal Lab Results - Last 24 Hours (Table) 06/09/18 Range/Units 05:58 Sodium 131 L (137-145) mmol/L Potassium 2.9 L (3.5-5.1) mmol/L Chloride 90 L (98-107) mmol/L Carbon Dioxide 32 H (22-30) mmol/L BUN 40 H (9-20) mg/dL Calcium 8.2 L (8.4-10.2) mg/dL Microbiology - Last 24 Hours (Table) 06/07/18 12:32 Blood Culture Gram Stain - Preliminary Blood Blood Culture - Preliminary Streptococcus species 06/07/18 12:32 Blood Culture - Final Blood Assessment and Plan Plan: This is a 68-year-old male patient who presented to the hospital with generalized weakness and malaise and frequent falls at home. Cardiology is following for acute on chronic diastolic heart failure. Patient has a blood culture that is positive for Streptococcus and awaiting finalization to determin e if this is true bacteremia or contamination. Repeat blood cultures in process. He is currently on vancomycin. Continue supportive care. Further recommendations as patient progresses. The above dictated assessment and findings were discussed with Dr. Ortez. The impression and plan of care have been directed as dictated. Ernestina Dalton nurse practitioner acting as scribe for Dr. Ortez.
[2018-06-09] MEDS: POTASSIUM CHLORIDE ER 20 MEQ TAB.ER PO SCH ×3 (13:10→18:25)
[2018-06-09] MEDS: MULTIVITAMINS, THERA 1 EACH TAB PO SCH (13:10)
--- NOTE | 2018-06-09 15:23 | P.PN ---
Subjective Progress Note Date: 06/09/18 This is a 68-year-old gentleman who follows regularly with Dr. VC Rodas in the office. He has a known history of hypertension, hyperlipidemia, paroxysmal persistent atrial fibrillation, coronary artery disease with prior bypass surgery and aortic valve replacement in 2012. He is on Eliquis 5 mg one tablet by mouth twice a day for anticoagulation. He presents to the hospital on this occasion with symptoms of falls, as well as worsening in shortness of breath and bilateral lower extremity edema. According to the patient he has had up to 3 falls at home, he denies any dizziness or lightheadedness, no syncopal episodes. He states that his legs become extremely weak and gave out on him he also states that over the past couple of days he has noticed himself to be more short of breath than usual. For this reason he came to the hospital for further evaluation and treatment. Chest x-ray on arrival here showed cardiomegaly with underlying COPD. 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 No acute fracture of the spine. His EKG showed a normal sinus rhythm with first- degree AV block and nonspecific ST-T wave changes. Repeat chest x-ray this morning does show pulmonary vascular congestion. Blood pressure 122/60 with a heart rate in the 60s, 93% on 5 L of oxygen. White blood cell count 18.5, hemoglobin 10.3, platelet count 271. Sodium on admission 128, 129 this morning, BUN 37 creatinine 1.0. Potassium 3.2 on admission which was replaced, 3.8 this morning. AST 83 ALT 83 alk phos 148, BNP level 48982. Troponin 0.44 0.39 0.36. Patient was initiated on IV Lasix in the emergency room, he has put out 3300 and urine. At the time of my examination this morning, he is sitting up in his bedside, complains of feeling mildly weak. Breathing is overall stable. 06/09/2018 Patient seen and examined this morning, overall feeling much stronger.Echo cardiac gram with Doppler study was performed which revealed an ejection fraction of 50-55%, mild to moderate stenosis of the bioprosthetic aortic valve, moderate pulmonary hypertension. Afebrile. Sodium 131, potassium 2.9, BUN 40 and creatinine 1.07.blood culture positive for gram positive cocci in pairs and chains, Streptococcus species. Beecause of the patient's history of valve with positive blood cultures we have been requested by Dr. souza to proceed with KENTON. The risks and the benefits were explained to the patient and his son, this will be performed tomorrow by Dr. VC Rodas. Objective - Vital Signs Vital signs: Vital Signs Temp 98.9 F 06/09/18 04:00 Pulse 66 06/09/18 04:00 Resp 22 06/09/18 04:00 BP 103/64 06/09/18 04:00 Pulse Ox 97 06/09/18 08:31 Intake & Output 06/08/18 06/09/18 06/09/18 18:59 06:59 18:59 Intake Total 240 620 240 Output Total 950 1100 Balance -710 -480 240 Intake: Intake, IV Titration 500 Amount Vancomycin 2,000 mg In 500 Sodium Chloride 0.9% 500 ml 500 ml @ 167 mls/hr IVPB ONCE ONE Rx#: [id number] Oral 240 120 240 Output: Urine 950 1100 Other: Voiding Method Indwelling Catheter Indwelling Catheter # Bowel Movements 1 - Exam PHYSICAL EXAMINATION: GENERAL: 68-year-old gentleman in no acute distress at the time of my examination HEENT: Head is atraumatic, normocephalic. Pupils equal, round. Sclera anicteric. Conjunctiva are clear. Mucous membranes of the mouth are moist. Neck is supple. There is no elevated jugular venous pressure. No carotid bruit is heard. HEART EXAMINATION: Heart S1 S2 1 systolic murmur is heard. CHEST EXAMINATION: Lungs are clear with diminished air entry to bilateral bases. ABDOMEN: Soft, obese, nontender. Bowel sounds are heard. No organomegaly noted. EXTREMITIES: 2+ peripheral pulses with trace to 1+ evidence of peripheral edema and no calf tenderness noted. NEUROLOGIC patient is awake, alert and oriented 3 . - Labs CBC & Chem 7: 06/07/18 11:34 06/09/18 05:58 Labs: Abnormal Lab Results - Last 24 Hours (Table) 06/09/18 Range/Units 05:58 Sodium 131 L (137-145) mmol/L Potassium 2.9 L (3.5-5.1) mmol/L Chloride 90 L (98-107) mmol/L Carbon Dioxide 32 H (22-30) mmol/L BUN 40 H (9-20) mg/dL Calcium 8.2 L (8.4-10.2) mg/dL Microbiology - Last 24 Hours (Table) 06/07/18 12:32 Blood Culture Gram Stain - Preliminary Blood Blood Culture - Preliminary Streptococcus species Assessment and Plan Plan: Assessment and plan #1 frequent falls, likely secondary to weakness and unsteadiness. #2 congestive heart failure exacerbation and acute on chronic, diastolic, most recent echo was performed in April 2017 which revealed an ejection fraction of 55-60%, normally functioning bioprosthetic valve. #3 history of coronary artery bypass grafting surgery and aortic valve replacement in 2012 #4 hypertension #5 hyperlipidemia #6 paroxysmal atrial fibrillation #7 obesity Plan Blood cultures positive for gram-positive cocci in clusters and chains, because of the patient's history of valve replacement, and has been recommended that we proceed with transesophageal echocardiographic study. This will be scheduled tomorrow. The risks and the benefits were explained to the patient and his son in detail. We will replace the patient's potassium today. Repeat Lytes ,BUN and creatinine tomorrow. DNP note has been reviewed, I agree with a documented findings and plan of care. Patient was seen and examined.
--- NOTE | 2018-06-09 17:02 | P.CON ---
Consult Note - . Consult date: 06/09/18 Assessment/Plan:: This is a 68-year-old male patient that gives history of falling 3-4 times at home. He states he may have some bruising but denies any significant injuries. Patient has difficulty getting off the floor after his falls and has been on the floor for extended periods. He complains of generalized weakness and malaise and shortness of breath. He normally uses a walker for ambulation. He denies fever, chills or rigors at home, no cough or sputum production. He denies dysuria, urinary retention or difficulty with urinary flow. No significant joint or muscle aches. Patient states he had similar symptoms around 2 months ago with multiple falls but does not recall if he sought treatment at bedtime. He also gives history that he normally drinks 9-10 beers per day but quit drinking 3 weeks ago. His family determined that he needed to come into the [facility] emergency center for evaluation. Patient was found to have a temperature of 100.5. White count was 18.5. Electrolyte abnormalities included sodium 128, potassium 3.2, chloride 86, CO2 32, BUN was 38 and creatinine 1.06. AST 83, ALT 83, alkaline phosphatase 148. Ammonia level was 36. CK 177, proBNP 13,600, albumin 2.8, lipase normal. Troponin 0.447, 0.398, 0.366. Urinalysis was clear with nitrate and leukoesterase negative. Influenza testing negative. Alcohol less than 10. Blood culture was positive for strep species and thus this infectious disease consult was requested. A repeat blood culture was obtained last evening and is status received. A Tee catheter has been placed on this admission. Patient does have a bioprosthetic aortic valve. He is planning to go to subacute rehab at the time of discharge. Please see the consult note as dictated by GRAB OPERATOR Natasha Ernestina Dalton. this 68-year-old male does have a approximate three-week history of a significant change of his functional status. The patient started to feel weak and started to have some falls at that point in time. He was not feeling well. Because of the change of his status he stopped drinking his alcohol which is between 9 and 10 beers a day. The family was present does verify this.is noted he is now had multiple falls has had an event of epistaxis after a fall and injury to his left ear. By the time he presents he has evidence of leukocytosis and workup has progressed and now there is evidence of a positive blood culture. And because of his bioprosthetic aortic valve the infectious disease consultation was requested. Laboratories contact and there is evidence of the Streptococcus growing from both blood cultures that were drawn at admission. Follow blood cultures are reported been requested and are in process. while cultures are process antibiotic therapy with vancomycin is being utilized. Cardiology was contacted and we requested KENTON be performed given the bioprosthetic valve in the positive blood cultures. There is concern that the patient has a subacute prosthetic valve endocarditis resulting in his multiweek course of declining status. the patient's family is informed of the concerns and the importance of evaluation and treatment.as noted on the exam the patient has multiple areas of ecchymosis and skin abrasions, has multiple portals of entry for the streptococcal bacteremia. I agree with evaluation assessment and plan as dictated by GRAB OPERATOR Mrs. Ernestina Dalton.
--- NOTE | 2018-06-10 01:26 | PN ---
PROGRESS NOTE DATE OF SERVICE: June 09, 2018 PRESENTING COMPLAINT: Tired. INTERVAL HISTORY: This patient admitted with acute congestive heart failure exacerbation and positive blood cultures. Seen by Dr. Ortez earlier today who ordered a KENTON to rule out endocarditis. The patient did not take his Valium yesterday. Family confirming now the patient's last drink was about 3 weeks ago. Otherwise, patient feels a bit better except tired. Did tolerate some diet. REVIEW OF SYSTEMS: Done for constitutional, cardiovascular, GI, pulmonary; relevant findings as above. CURRENT MEDICATIONS: Reviewed that include p.o. Lasix and IV vancomycin. PHYSICAL EXAMINATION: VITAL SIGNS: Temperature 98.9, pulse 66, respiratory 22, blood pressure 103/64, pulse ox 93 percent on 2 L. GENERAL APPEARANCE: Sitting at edge of the bed, a bit more awake. EYES: Pupils equal. Conjunctivae normal. NECK: JVD not raised. Mass not palpable. RESPIRATORY: Effort increased. LUNGS: Diminished breath sounds. CARDIOVASCULAR: 1st and 2nd sounds normal. Some edema. ABDOMEN: Distended, soft. Liver and spleen not palpable. PSYCHIATRY: Awake, answering questions. More alert today. INVESTIGATIONS: Sodium 131, potassium 2.9, BUN 40, creatinine 1.07. Blood cultures are growing Streptococcus species from 4 sets now. ASSESSMENT: 1. Acute on chronic congestive heart failure exacerbation from diastolic dysfunction. Ejection fraction 50-55 percent, now euvolemic. 2. Positive blood cultures with Streptococcus. 3. Rule out endocarditis. KENTON has been requested. 4. Hypertensive heart disease. 5. Alcohol induced myopathy. 6. Essential hypertension. 7. Aortic valve replaced. 8. Peripheral artery disease. 9. Primary osteoarthritis. 10.Coronary artery disease. 11.Hyperlipidemia. 12.Zhu's esophagus from chronic alcoholism. 13.Colonic diverticulosis. 14.Obesity; BMI 36.6. PLAN: The patient's Valium will be discontinued. Care was discussed with the family at the bedside. KENTON has been requested. Antibiotics are to continue. MMODL / IJN: [id number] /
[2018-06-10] MEDS: VANCOMYCIN 2,000 MG in SODIUM CHLORIDE 0.9% 500 ML 500 ML IVPB SCH ×4 (03:57→23:03)
[2018-06-10 07:08] LABS: Anion Gap 6 mmol/L; Blood Urea Nitrogen 35 mg/dL (9-20); Calcium 8.3 mg/dL (8.4-10.2); Carbon Dioxide 32 mmol/L (22-30); Chloride 95 mmol/L (98-107); Glucose 103 mg/dL (74-99); Potassium 3.5 mmol/L (3.5-5.1); Sodium 133 mmol/L (137-145)
[2018-06-10] MEDS: SPIRONOLACTONE 25 MG TAB PO SCH (08:58)
[2018-06-10] MEDS: FUROSEMIDE 40 MG TAB PO SCH (08:59)
[2018-06-10] MEDS: METOPROLOL TARTRATE 25 MG TAB PO SCH ×2 (08:59→21:22)
[2018-06-10] MEDS: AMIODARONE 200 MG TAB PO SCH (08:59)
[2018-06-10] MEDS: FAMOTIDINE 20 MG TAB PO SCH ×2 (08:59→21:23)
[2018-06-10] MEDS: GABAPENTIN 100 MG CAP PO SCH ×3 (08:59→21:23)
[2018-06-10] MEDS: MULTIVITAMINS, THERA 1 EACH TAB PO SCH (08:59)
[2018-06-10] MEDS: ISOSORBIDE MONONITRATE ER 15 MG TAB PO SCH (08:59)
[2018-06-10] MEDS ORDERED: fentaNYL (PF) 50 MCG/ML 2 ML AMP ONE (11:25)
[2018-06-10] MEDS: BENZOCAINE SPRAY 1 CAN MUCOUS MEM ONE ×2 (11:59→12:06)
[2018-06-10] MEDS ORDERED: IV FLUID CONTINUATION 400 ML IV ONE (12:00)
[2018-06-10] MEDS ORDERED: MIDAZOLAM (PF) 2 MG/2 ML VIAL IVP ONE (12:09)
[2018-06-10] MEDS ORDERED: fentaNYL (PF) 50 MCG/ML 2 ML AMP IVP ONE (12:09)
[2018-06-10] MEDS: MIDAZOLAM 2 MG/2 ML VIAL IVP ONE ×2 (12:09→12:12)
--- NOTE | 2018-06-10 12:54 | ECHOT ---
TRANSESOPHAGEAL ECHOCARDIOGRAM This transesophageal echocardiogram was performed to rule out any evidence of endocarditis. Patient is status post bioprosthetic aortic valve replacement. Patient was given intravenous sedation with Versed and fentanyl and transesophageal echocardiogram was performed without any complications. Left ventricular chamber is normal in size with overall normal left ventricular systolic function. There is a mild thickening of the mitral leaflet noted without definite evidence of any vegetations. Mild mitral regurgitation is noted. Tricuspid valve morphology is normal. Bioprosthetic aortic valve leaflets are thickened and calcified but seems to be opening fairly normally. There is a mild aortic regurgitation is noted. There is no definite evidence of soft echogenic mass to suggest vegetations on the bioprosthetic aortic valve. Aortic left atrium is moderately enlarged. Left atrial appendage could not be open and it is probably ligated. FINAL IMPRESSION: There is a thickening and calcification of bioprosthetic aortic leaflets. The leaflets are opening fairly normally. There is no definite evidence suggestive of vegetations. Mild aortic regurgitation is noted. There is a mild thickening of the mitral leaflets noted without any evidence of vegetations. There is no evidence of vegetations on the tricuspid valve. Left ventricular systolic function is normal. Left atrial is mildly enlarged. There is no evidence of any thrombus. Left atrial appendage could not be opened and possibly it is ligated. There was no flow noted in the left atrial appendage. MMODL / IJN: [id number] /
[2018-06-10] MEDS ORDERED: VANCOMYCIN TROUGH DUE 1 EACH MISC MISCELLANE ONE (13:00)
--- NOTE | 2018-06-10 21:12 | PN ---
PROGRESS NOTE DATE OF SERVICE: June 10 2018. PRESENTING COMPLAINT: Tired. INTERVAL HISTORY: Patient presented with acute congestive heart failure exacerbation. Positive blood cultures now growing Streptococcus bovis. The patient did have a KENTON today that was negative for vegetations. The patient does feel a bit tired. Otherwise sitting up keen to eat. Appetite is come back. Daughter is present. REVIEW OF SYSTEMS: Done for constitutional, cardiovascular, GI, pulmonary and relevant findings as above. CURRENT MEDICATIONS: Reviewed that include p.o. Lasix and IV vancomycin. PHYSICAL EXAMINATION: VITAL SIGNS: Temperature 97.8. Pulse 59, respiratory 18, blood pressure 133/60, pulse ox 96 percent on 2 L. GENERAL APPEARANCE: Sitting on the edge of the bed, looks better. EYES: Pupils equal. Conjunctivae normal. NECK: JVD not raised. Mass not palpable. RESPIRATORY: Effort normal. LUNGS: Decreased breath sounds. CARDIOVASCULAR: 1st and 2nd sounds normal. Minimal edema. ABDOMEN: Soft, nontender. Liver and spleen not palpable. PSYCHIATRY: Alert and oriented x3. Mood and affect normal. INVESTIGATIONS: Potassium 3.5, BUN 35, creatinine 0.89. KENTON was negative for vegetation, showed bicuspid aortic valve. ASSESSMENT: 1. Acute on chronic congestive heart failure exacerbation from diastolic dysfunction. Ejection fraction 50-55 percent now euvolemic. 2. Positive blood cultures with Streptococcus bovis. 3. KENTON negative for endocarditis. 4. Hypertensive heart disease. 5. Alcohol induced myopathy. 6. Essential hypertension. 7. Bicuspid aortic valve. 8. Peripheral artery disease. 9. Primary osteoarthritis. 10.Coronary artery disease. 11.Hyperlipidemia. 12.Zhu's esophagus from chronic alcoholism. 13.Colonic diverticulosis. 14.Obesity; BMI 36.6. 15.History of coronary artery bypass with aortic valve replacement on Eliquis. 16.Paroxysmal atrial fibrillation for which patient is on Eliquis. PLAN: Did have a lengthy talk with the patient and his family about the importance of staying away from alcohol. We will have Physical therapy evaluate the patient. Antibiotics are to continue per Dr. Ortez. MMDOMIL / IJN: [id number] /
[2018-06-10] MEDS: APIXABAN 5 MG TAB PO SCH (21:24)
--- NOTE | 2018-06-10 23:00 | P.PN ---
Subjective Progress Note Date: 06/10/18 This is a 68-year-old male patient that gives history of falling 3-4 times at home. He states he may have some bruising but denies any significant injuries. Patient has difficulty getting off the floor after his falls and has been on the floor for extended periods. He complains of generalized weakness and malaise and shortness of breath. He normally uses a walker for ambulation. He denies fever, chills or rigors at home, no cough or sputum production. He denies dysuria, urinary retention or difficulty with urinary flow. No significant joint or muscle aches. Patient states he had similar symptoms around 2 months ago with multiple falls but does not recall if he sought treatment at bedtime. He also gives history that he normally drinks 9-10 beers per day but quit drinking 3 weeks ago. His family determined that he needed to come into the [facility] emergency center for evaluation. Patient was found to have a temperature of 100.5. White count was 18.5. El ectrolyte abnormalities included sodium 128, potassium 3.2, chloride 86, CO2 32, BUN was 38 and creatinine 1.06. AST 83, ALT 83, alkaline phosphatase 148. Ammonia level was 36. CK 177, proBNP 13,600, albumin 2.8, lipase normal. Troponin 0.447, 0.398, 0.366. Urinalysis was clear with nitrate and leukoesterase negative. Influenza testing negative. Alcohol less than 10. Blood culture was positive for strep species and thus this infectious disease consult was requested. A repeat blood culture was obtained last evening and is status received. A Tee catheter has been placed on this admission. Patient does have a bioprosthetic aortic valve. He is planning to go to subacute rehab at the time of discharge 06/10/2018 the patient is sitting upright and has had some of his dinner. Feel ing slightly better today. Not having high-grade fevers, chills or rigors. But does have generalized weakness. The transesophageal echocardiogram was performed that shows evidence of the bioprosthetic aortic valve that is intact with some valvular thickening but no evidence of endocarditis, no other valvular lesions were seen. Blood cultures now coming back positive with Streptococcus bovis. The family relates that he does have a history of gastrointestinal bleeding of approximately one year ago which point in time he did have upper and lower endoscopy. Apparently nonmalignant polyps were seen but no evidence of the site of bleeding was found. Patient is not having active bleeding at this time. Objective - Vital Signs Vital signs: Vital Signs Temp 97.8 F 06/10/18 16:00 Pulse 59 L 06/10/18 16:00 Resp 18 06/10/18 16:00 BP 133/60 06/10/18 16:00 Pulse Ox 96 06/10/18 16:00 Intake & Output 06/10/18 06/10/18 06/11/18 06:59 18:59 06:59 Intake Total 740 100 Output Total 925 1600 Balance -185 -1500 Weight 130 kg Intake: IV 100 Intake, IV Titration 500 Amount Vancomycin 2,000 mg In 500 Sodium Chloride 0.9% 500 ml 500 ml @ 167 mls/hr IVPB Q12H [facility] Rx#: [id number] Oral 240 Output: Urine 925 1600 Other: Voiding Method Indwelling Catheter Urinal Urinal # Voids 1 - Exam Gen: This is a obese 68-year-old male. He is found sitting on the edg e of the bed and appears to be comfortable and in no acute distress. No respiratory distress is noted. HEENT: Head is atraumatic, normocephalic. Pupils equal, round. Sclerae is anicteric. Conjunctiva pink. Mucous members of the mouth are moist. No oropharyngeal erythema or edema. Small abrasion to the left auricle. NECK: Supple. No JVD. No lymphadenopathy. No thyromegaly. LUNGS: Clear to auscultation. No wheezes or rhonchi. No intercostal retractions. HEART: Regular rate and rhythm. Systolic murmur. ABDOMEN: Soft. Bowel sounds are present. No masses. No tenderness. Positive soft umbilical hernia. EXTREMITIES: 1+ pedal edema. No calf tenderness. NEUROLOGICAL: Patient is awake, alert and oriented x3 - Labs CBC & Chem 7: 06/07/18 11:34 06/10/18 06:03 Labs: Abnormal Lab Results - Last 24 Hours (Table) 06/10/18 Range/Units 06:03 Sodium 133 L (137-145) mmol/L Chloride 95 L (98-107) mmol/L Carbon Dioxide 32 H (22-30) mmol/L BUN 35 H (9-20) mg/dL Glucose 103 H (74-99) mg/dL Calcium 8.3 L (8.4-10.2) mg/dL Microbiology - Last 24 Hours (Table) 06/08/18 18:12 Blood Culture Gram Stain - Preliminary Blood 06/08/18 19:43 Blood Culture Gram Stain - Preliminary Blood 06/07/18 12:32 Blood Culture Gram Stain - Final Blood Blood Culture - Final Streptococcus bovis Laboratory Results WBC 18.5 k/uL (3.8-10.6) H 06/07/18 11:34 RBC 3.31 m/uL (4.30-5.90) L 06/07/18 11:34 Hgb 10.3 gm/dL (13.0-17.5) L 06/07/18 11:34 Hct 31.5 % (39.0-53.0) L 06/07/18 11:34 MCV 95.1 fL (80.0-100.0) 06/07/18 11:34 MCH 31.2 pg (25.0-35.0) 06/07/18 11:34 MCHC 32.8 g/dL (31.0-37.0) 06/07/18 11:34 RDW 15.9 % (11.5-15.5) H 06/07/18 11:34 Plt Count 271 k/uL (150-450) 06/07/18 11:34 Neutrophils % (Manual) 84 % 06/07/18 11:34 Lymphocytes % (Manual) 7 % 06/07/18 11:34 Monocytes % (Manual) 9 % 06/07/18 11:34 Neutrophils # (Manual) 15.54 k/uL (1.3-7.7) H 06/07/18 11:34 Lymphocytes # (Manual) 1.30 k/uL (1.0-4.8) 06/07/18 11:34 Monocytes # (Manual) 1.67 k/uL (0-1.0) H 06/07/18 11:34 Nucleated RBCs 0 /100 WBC (0-0) 06/07/18 11:34 Manual Slide Review Performed 06/07/18 11:34 Poikilocytosis (manual Present 06/07/18 11:34 Crenated Cell Present 06/07/18 11:34 PT 13.3 sec (9.0-12.0) H 06/07/18 12:32 INR 1.3 (<1.2) H 06/07/18 12:32 APTT 33.9 sec (22.0-30.0) H 06/07/18 19:11 VBG pH 7.68 (7.31-7.41) H* 06/07/18 11:34 VBG pCO2 26 mmHg (37-51) L 06/07/18 11:34 VBG HCO3 32 mmol/L (24-28) H 06/07/18 11:34 Sodium 133 mmol/L (137-145) L 06/10/18 06:03 Potassium 3.5 mmol/L (3.5-5.1) 06/10/18 06:03 Chloride 95 mmol/L (98-107) L 06/10/18 06:03 Carbon Dioxide 32 mmol/L (22-30) H 06/10/18 06:03 Anion Gap 6 mmol/L 06/10/18 06:03 BUN 35 mg/dL (9-20) H 06/10/18 06:03 Creatinine 0.89 mg/dL (0.66-1.25) 06/10/18 06:03 Est GFR (CKD-EPI)AfAm >90 (>60 ml/min/1.73 sqM) 06/10/18 06:03 Est GFR (CKD-EPI)NonAf 87 (>60 ml/min/1.73 sqM) 06/10/18 06:03 Glucose 103 mg/dL (74-99) H 06/10/18 06:03 POC Glucose (mg/dL) 142 mg/dL (75-99) H 06/08/18 00:48 POC Glu Covered Buckle Assembler ID Kraon Dumont 06/08/18 00:48 Lactic Ac Sepsis Rflx Y 06/07/18 12:24 Plasma Lactic Acid Faizan 1.1 mmol/L (0.7-2.0) 06/07/18 16:05 Calcium 8.3 mg/dL (8.4-10.2) L 06/10/18 06:03 Magnesium 1.8 mg/dL (1.6-2.3) 06/07/18 11:34 Total Bilirubin 1.3 mg/dL (0.2-1.3) 06/07/18 11:34 Conjugated Bilirubin 0.0 mg/dL (0.0-0.3) 06/07/18 11:34 Unconjugated Bilirubin 1.0 mg/dL (0.0-1.1) 06/07/18 11:34 Delta Bilirubin 0.3 mg/dL (0.0-0.2) H 06/07/18 11:34 AST 83 U/L (17-59) H 06/07/18 11:34 ALT 83 U/L (21-72) H 06/07/18 11:34 Alkaline Phosphatase 148 U/L (38-126) H 06/07/18 11:34 Ammonia 36 umol/L (<30) H 06/07/18 11:34 Creatine Kinase 177 U/L (55-170) H 06/07/18 11:34 Troponin I 0.366 ng/mL (0.000-0.034) H* 06/07/18 22:22 NT-Pro-B Natriuret Pep 36069 pg/mL 06/08/18 06:40 Total Protein 6.0 g/dL (6.3-8.2) L 06/07/18 11:34 Albumin 2.8 g/dL (3.5-5.0) L 06/07/18 11:34 Triglycerides 70 mg/dL (<150) 06/08/18 06:40 Cholesterol 104 mg/dL (<200) 06/08/18 06:40 LDL Cholesterol, Calc 68 mg/dL (0-99) 06/08/18 06:40 HDL Cholesterol 22 mg/dL (40-60) L 06/08/18 06:40 Lipase 89 U/L (23-300) 06/07/18 11:34 Urine Color Yellow 06/07/18 19:00 Urine Appearance Clear (Clear) 06/07/18 19:00 Urine pH 7.0 (5.0-8.0) 06/07/18 19:00 Ur Specific [place] 1.010 (1.001-1.035) 06/07/18 19:00 Urine Protein Negative (Negative) 06/07/18 19:00 Urine Glucose (UA) Negative (Negative) 06/07/18 19:00 Urine Ketones Negative (Negative) 06/07/18 19:00 Urine Blood Negative (Negative) 06/07/18 19:00 Urine Nitrite Negative (Negative) 06/07/18 19:00 Urine Bilirubin Negative (Negative) 06/07/18 19:00 Urine Urobilinogen 2.0 mg/dL (<2.0) 06/07/18 19:00 Ur Leukocyte Esterase Negative (Negative) 06/07/18 19:00 Vancomycin Trough 9.8 ug/mL 06/10/18 13:53 Serum Alcohol <10 mg/dL 06/07/18 11:34 Influenza Type A RNA Not Detected (Not Detectd) 06/07/18 11:34 Influenza Type B (PCR) Not Detected (Not Detectd) 06/07/18 11:34 Microbiology 06/08/18 18:12 Blood Blood Culture Gram Stain - Preliminary 06/08/18 19:43 Blood Blood Culture Gram Stain - Preliminary 06/07/18 12:32 Blood Blood Culture Gram Stain - Final 06/07/18 12:32 Blood Blood Culture - Final Streptococcus bovis 06/08/18 18:12 Blood Blood Culture - Final 06/08/18 19:43 Blood Blood Culture - Final 06/07/18 12:32 Blood Blood Culture - Final - Imaging and Cardiology KENTON is completely without evidence of endocarditis Assessment and Plan (1) Weakness Current Visit: Yes Status: Acute Code(s): R53.1 - WEAKNESS SNOMED Code(s): 98676042 (2) Multiple falls Current Visit: Yes Status: Acute Code(s): R29.6 - REPEATED FALLS SNOMED Code(s): 710949403 (3) Streptococcus bovis infection Narrative/Plan: this 68-year-old male does have a approximate three-week history of a significant change of his functional status. The patient started to feel weak and started to have some falls at that point in time. He was not feeling well. Because of the change of his status he stopped drinking his alcohol which is between 9 and 10 beers a day. The family was present does verify this.is noted he is now had multiple falls has had an event of epistaxis after a fall and injury to his left ear. By the time he presents he has evidence of leukocytosis and workup has progressed and now there is evidence of a positive blood culture. And because of his bioprosthetic aortic valve the infectious disease consultation was requested. Laboratories contact and there is evidence of the Streptococcus growing from both blood cultures that were drawn at admission. Follow blood cultures are reported been requested and are in process. while cultures are process antibiotic therapy with vancomycin is being utilized. Cardiology was contacted and we requested KENTON be performed given the bioprosthetic valve in the positive blood cultures. There is concern that the patient has a subacute prosthetic valve endocarditis resulting in his multiweek course of declining status. the patient's family is informed of the concerns and the importance of evaluation and treatment.as noted on the exam the patient has multiple areas of ecchymosis and skin abrasions, has multiple portals of entry for the streptococcal bacteremia 06/10/2018 the patient is now had the KENTON performed without evidence of endocarditis. The blood cultures are now coming back as positive for Streptococcus bovis. This has a strong link to gastrointestinal source of the bacteremia. Given his history of alcoholism and prior history of gastrointestinal bleed of undetermined course there is concerned intra-abdominal pathology for his current infection. He likely has had a subacute infection with bacteremia occurring through this timeframe. He has noted likely is the etiology of his weakness and declining status. Computed tomography scan of the abdomen and pelvis with oral and IV contrast have been requested to further evaluate. He may need further evaluation with gastroenterology, has been seen by Dr. Willis in the past. Follow blood cultures will be requested as of tomorrow. Once his clearance of bacteremia plans for outpatient intravenous antibiotic therapy will be made. Current Visit: Yes Status: Acute Code(s): A49.1 - STREPTOCOCCAL INFECTION, UNSPECIFIED SITE SNOMED Code(s): 12892989
[2018-06-11] MEDS: VANCOMYCIN 2,000 MG in SODIUM CHLORIDE 0.9% 500 ML 500 ML IVPB SCH ×2 (06:38→22:32)
[2018-06-11 07:30] LABS: Anion Gap 7 mmol/L; Blood Urea Nitrogen 25 mg/dL (9-20); Calcium 8.6 mg/dL (8.4-10.2); Carbon Dioxide 31 mmol/L (22-30); Chloride 98 mmol/L (98-107); Glucose 87 mg/dL (74-99); Potassium 3.7 mmol/L (3.5-5.1); Sodium 136 mmol/L (137-145)
[2018-06-11] MEDS: IOPAMIDOL-300 CONTRAST 30 ML VIAL (ORAL USE) PO PRN ×2 (07:38→08:08)
--- NOTE | 2018-06-11 10:00 | CT ---
EXAMINATION TYPE: CT abdomen pelvis w con DATE OF EXAM: 06/11/2018 COMPARISON: Ultrasound 06/08/2018 HISTORY: 68-year-old male Abdominal abscess TECHNIQUE: Contiguous axial scanning of the abdomen and pelvis following administration of 100 ml Iso schuyler 300 IV contrast. Delayed images through the kidneys and coronal/sagittal reconstructions perform ed. CT DLP: 1787 mGycm Automated exposure control for dose reduction was used. FINDINGS: Median sternotomy wires are present. Heart upper limits of normal in size. No pericardial effusion. S ome dependent atelectasis is demonstrated with a trace pleural fluid on the left. Tiny hiatal hernia. No focal liver lesion or biliary ductal dilatation. Portal venous system is patent. Gallbladder, adrenal glands, kidneys with vascular calcifications, spleen, and pancreas appear within normal limits. Moderate atherosclerotic calcifications throughout the abdominal aorta and iliac arteries without ane urysm. Moderate-sized 4.4 cm wide fatty umbilical hernia. There is borderline to mildly enlarged aortocaval lymph nodes measuring 9 mm, reference axial image 4 2, 45, and 7. No mesenteric lymphadenopathy. No dilated small bowel, free fluid, or free air. Normal appendix. Oral contrast progressed to the distal transverse colon. Scattered mild stool. Sigmo id diverticulosis without pericolic inflammatory change. There is some nondependent intraluminal air within the bladder. Prostate gland measures 4.2 cm wide w ith some central calcifications. No abnormal fluid collection in the pelvis or pelvic lymphadenopathy . There is a 5.8 x 3.1 cm smooth oval cystic structure along the anterior left pelvis just deep to the skin surface in the subcutaneous adipose. Bones: Degenerative changes at the hips. Osteopenia. Facet arthropathy mid to lower lumbar spine with grade 1 anterolisthesis at L4-L5. Bilateral neuroforaminal stenoses at L4-L5 and L5-S1. IMPRESSION: 1. SMOOTH OVAL CYSTIC STRUCTURE MEASURING 5.8 X 3.1 CM IN THE ANTERIOR LEFT PELVIS JUST DEEP TO THE S KIN SURFACE. CORRELATE WITH PHYSICAL EXAM FINDINGS. CONSIDER ULTRASOUND AND EXCISION OR ASPIRATION IF INDICATED. THERE IS NO SIGNIFICANT SURROUNDING INFLAMMATION TO SUPPORT AN ABSCESS AT THIS TIME. 2. MODERATE-SIZED PERIUMBILICAL HERNIA. SIGMOID DIVERTICULOSIS WITHOUT EVIDENCE FOR ACUTE DIVERTICULI TIS. 3. A FEW BORDERLINE TO MILDLY ENLARGED RETROPERITONEAL (AORTOCAVAL) LYMPH NODES MEASURING UP TO 9 MM. THESE ARE NONSPECIFIC AND MAY BE REACTIVE/POST INFLAMMATORY. 3 MONTH FOLLOW-UP EXAM CAN ENSURE STABI LITY/RESOLUTION. 4. SOME INTRALUMINAL AIR WITHIN THE BLADDER COULD REFLECT RECENT INSTRUMENTATION OR UNDERLYING INFECT ION. CLINICALLY CORRELATE.
[2018-06-11] MEDS: GABAPENTIN 100 MG CAP PO SCH ×3 (11:35→22:32)
[2018-06-11] MEDS: ISOSORBIDE MONONITRATE ER 15 MG TAB PO SCH (11:35)
[2018-06-11] MEDS: APIXABAN 5 MG TAB PO SCH ×2 (11:35→22:32)
[2018-06-11] MEDS: METOPROLOL TARTRATE 25 MG TAB PO SCH ×2 (11:36→22:32)
[2018-06-11] MEDS: SPIRONOLACTONE 25 MG TAB PO SCH (11:36)
[2018-06-11] MEDS: FUROSEMIDE 40 MG TAB PO SCH (11:36)
[2018-06-11] MEDS: FAMOTIDINE 20 MG TAB PO SCH ×2 (11:37→22:33)
[2018-06-11] MEDS: AMIODARONE 200 MG TAB PO SCH (11:37)
--- NOTE | 2018-06-11 12:11 | P.PN ---
Subjective Progress Note Date: 06/11/18 This is a 68-year-old gentleman who follows regularly with Dr. VC Rodas in the office. He has a known history of hypertension, hyperlipidemia, paroxysmal persistent atrial fibrillation, coronary artery disease with prior bypass surgery and aortic valve replacement in 2012. He is on Eliquis 5 mg one tablet by mouth twice a day for anticoagulation. He presents to the hospital on this occasion with symptoms of falls, as well as worsening in shortness of breath and bilateral lower extremity edema. According to the patient he has had up to 3 falls at home, he denies any dizziness or lightheadedness, no syncopal episodes. He states that his legs become extremely weak and gave out on him he also states that over the past couple of days he has noticed himself to be more short of breath than usual. For this reason he came to the hospital for further evaluation and treatment. Chest x-ray on arrival here showed cardiomegaly with underlying COPD. 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 No acute fracture of the spine. His EKG showed a normal sinus rhythm with first- degree AV block and nonspecific ST-T wave changes. Repeat chest x-ray this morning does show pulmonary vascular congestion. Blood pressure 122/60 with a heart rate in the 60s, 93% on 5 L of oxygen. White blood cell count 18.5, hemoglobin 10.3, platelet count 271. Sodium on admission 128, 129 this morning, BUN 37 creatinine 1.0. Potassium 3.2 on admission which was replaced, 3.8 this morning. AST 83 ALT 83 alk phos 148, BNP level 36227. Troponin 0.44 0.39 0.36. Patient was initiated on IV Lasix in the emergency room, he has put out 3300 and urine. At the time of my examination this morning, he is sitting up in his bedside, complains of feeling mildly weak. Breathing is overall stable. 06/09/2018 Patient seen and examined this morning, overall feeling much stronger.Echo cardiac gram with Doppler study was performed which revealed an ejection fraction of 50-55%, mild to moderate stenosis of the bioprosthetic aortic valve, moderate pulmonary hypertension. Afebrile. Sodium 131, potassium 2.9, BUN 40 and creatinine 1.07.blood culture positive for gram positive cocci in pairs and chains, Streptococcus species. Beecause of the patient's history of valve with positive blood cultures we have been requested by Dr. souza to proceed with KENTON. The risks and the benefits were explained to the patient and his son, this will be performed tomorrow by Dr. VC Rodas. 06/11/2018 Patient seen and examined this morning, underwent a KENTON yesterday which did not reveal any evidence of vegetation, there was thickening and calcification of the bioprosthetic aortic valve leaflets noted, opening fairly normal. Mild aortic regurg was noted. Mild thickening of the mitral leaflets without any evidence of agitation. No evidence of any thrombus. Blood pressure this morning 147/60 with a heart rate in the 60s, 97% on 3 L of oxygen. Objective - Vital Signs Vital signs: Vital Signs Temp 97.4 F L 06/11/18 11:58 Pulse 60 06/11/18 11:58 Resp 18 06/11/18 11:58 BP 173/74 06/11/18 11:58 Pulse Ox 97 06/11/18 11:58 Intake & Output 06/10/18 06/11/18 06/11/18 18:59 06:59 18:59 Intake Total 100 Output Total 1600 400 300 Balance -1500 -400 -300 Weight 123.6 kg Intake: IV 100 Output: Urine 1600 400 300 Other: Voiding Method Urinal Urinal Urinal # Voids 1 - Exam PHYSICAL EXAMINATION: GENERAL: 68-year-old gentleman in no acute distress at the time of my examination HEENT: Head is atraumatic, normocephalic. Pupils equal, round. Sclera anicteric. Conjunctiva are clear. Mucous membranes of the mouth are moist. Ne ck is supple. There is no elevated jugular venous pressure. No carotid bruit is heard. HEART EXAMINATION: Heart S1 S2 1 systolic murmur is heard. CHEST EXAMINATION: Lungs are clear with diminished air entry to bilateral bases. ABDOMEN: Soft, obese, nontender. Bowel sounds are heard. No organomegaly noted. EXTREMITIES: 2+ peripheral pulses with trace to 1+ evidence of peripheral edema and no calf tenderness noted. NEUROLOGIC patient is awake, alert and oriented 3 . - Labs CBC & Chem 7: 06/07/18 11:34 06/11/18 06:32 Labs: Abnormal Lab Results - Last 24 Hours (Table) 06/11/18 Range/Units 06:32 Sodium 136 L (137-145) mmol/L Carbon Dioxide 31 H (22-30) mmol/L BUN 25 H (9-20) mg/dL Assessment and Plan Plan: Assessment and plan #1 frequent falls, likely secondary to weakness and unsteadiness. #2 congestive heart failure exacerbation and acute on chronic, diastolic, most recent echo was performed in April 2017 which revealed an ejection fraction of 55-60%, normally functioning bioprosthetic valve. #3 history of coronary artery bypass grafting surgery and aortic valve replacement in 2012 #4 hypertension #5 hyperlipidemia #6 paroxysmal atrial fibrillation #7 obesity Plan KENTON did not reveal any evidence of vegetation. From cardiology's perspective, we will follow this patient along with you now on an as-needed basis only, please don't hesitate to call with any questions. A follow-up appointment will be made with Dr. VC Rodas in the office post discharge. DNP note has been reviewed, I agree with a documented findings and plan of care. Patient was seen and examined.
[2018-06-11] MEDS: MULTIVITAMINS, THERA 1 EACH TAB PO SCH (12:34)
[2018-06-11] MEDS ORDERED: VANCOMYCIN TROUGH DUE 1 EACH MISC MISCELLANE ONE (14:00)
--- NOTE | 2018-06-11 23:17 | P.PN ---
Subjective Progress Note Date: 06/11/18 This is a 68-year-old male patient that gives history of falling 3-4 times at home. He states he may have some bruising but denies any significant injuries. Patient has difficulty getting off the floor after his falls and has been on the floor for extended periods. He complains of generalized weakness and malaise and shortness of breath. He normally uses a walker for ambulation. He denies fever, chills or rigors at home, no cough or sputum production. He denies dysuria, urinary retention or difficulty with urinary flow. No significant joint or muscle aches. Patient states he had similar symptoms around 2 months ago with multiple falls but does not recall if he sought treatment at bedtime. He also gives history that he normally drinks 9-10 beers per day but quit drinking 3 weeks ago. His family determined that he needed to come into the [facility] emergency center for evaluation. Patient was found to have a temperature of 100.5. White count was 18.5. El ectrolyte abnormalities included sodium 128, potassium 3.2, chloride 86, CO2 32, BUN was 38 and creatinine 1.06. AST 83, ALT 83, alkaline phosphatase 148. Ammonia level was 36. CK 177, proBNP 13,600, albumin 2.8, lipase normal. Troponin 0.447, 0.398, 0.366. Urinalysis was clear with nitrate and leukoesterase negative. Influenza testing negative. Alcohol less than 10. Blood culture was positive for strep species and thus this infectious disease consult was requested. A repeat blood culture was obtained last evening and is status received. A Tee catheter has been placed on this admission. Patient does have a bioprosthetic aortic valve. He is planning to go to subacute rehab at the time of discharge 06/10/2018 the patient is sitting upright and has had some of his dinner. Feel ing slightly better today. Not having high-grade fevers, chills or rigors. But does have generalized weakness. The transesophageal echocardiogram was performed that shows evidence of the bioprosthetic aortic valve that is intact with some valvular thickening but no evidence of endocarditis, no other valvular lesions were seen. Blood cultures now coming back positive with Streptococcus bovis. The family relates that he does have a history of gastrointestinal bleeding of approximately one year ago which point in time he did have upper and lower endoscopy. Apparently nonmalignant polyps were seen but no evidence of the site of bleeding was found. Patient is not having active bleeding at this time. 06/11/2018 patient is feeling somewhat better today. Is under the KENTON without evidence of endocarditis. Computed tomography scan of the abdomen and pelvis reveals evidence of a fluid collection in the lower pelvis that cannot be excluded as to an infection. At this time all blood cultures are positive for Streptococcus bovis. The patient fortunately is feeling slightly better. Yannick blankenship's questions are answered. Objective - Vital Signs Vital signs: Vital Signs Temp 97.6 F 06/11/18 17:12 Pulse 60 06/11/18 17:12 Resp 16 06/11/18 17:12 BP 145/69 06/11/18 17:12 Pulse Ox 98 06/11/18 17:12 Intake & Output 06/11/18 06/11/18 06/12/18 06:59 18:59 06:59 Intake Total 240 Output Total 400 300 Balance -400 -60 Weight 123.6 kg Intake: Oral 240 Output: Urine 400 300 Other: Voiding Method Urinal Urinal - Exam Gen: This is a obese 68-year-old male. He is found sitting on the edge of the bed and appears to be comfortable and in no acute distress. No respiratory distress is noted. HEENT: Head is atraumatic, normocephalic. Pupils equal, round. Sclerae is anicteric. Conjunctiva pink. Mucous members of the mouth are moist. No oropharyngeal erythema or edema. Small abrasion to the left auricle. NECK: Supple. No JVD. No lymphadenopathy. No thyromegaly. LUNGS: Clear to auscultation. No wheezes or rhonchi. No intercostal retractions. HEART: Regular rate and rhythm. Systolic murmur. ABDOMEN: Soft. Bowel sounds are present. On the left lower abdominal wall at the lowest aspect of the pelvis is a small palpable area that is slightly fluctuant it is not tender has mild ecchymosis. No tenderness. Positive soft umbilical hernia. EXTREMITIES: 1+ pedal edema. No calf tenderness. NEUROLOGICAL: Patient is awake, alert and oriented x3 - Labs CBC & Chem 7: 06/07/18 11:34 06/11/18 06:32 Labs: Abnormal Lab Results - Last 24 Hours (Table) 06/11/18 06/11/18 Range/Units 06:32 13:48 Sodium 136 L (137-145) mmol/L Carbon Dioxide 31 H (22-30) mmol/L BUN 25 H (9-20) mg/dL Vancomycin Trough 33.1 H* ug/mL Laboratory Results WBC 18.5 k/uL (3.8-10.6) H 06/07/18 11:34 RBC 3.31 m/uL (4.30-5.90) L 06/07/18 11:34 Hgb 10.3 gm/dL (13.0-17.5) L 06/07/18 11:34 Hct 31.5 % (39.0-53.0) L 06/07/18 11:34 MCV 95.1 fL (80.0-100.0) 06/07/18 11:34 MCH 31.2 pg (25.0-35.0) 06/07/18 11:34 MCHC 32.8 g/dL (31.0-37.0) 06/07/18 11:34 RDW 15.9 % (11.5-15.5) H 06/07/18 11:34 Plt Count 271 k/uL (150-450) 06/07/18 11:34 Neutrophils % (Manual) 84 % 06/07/18 11:34 Lymphocytes % (Manual) 7 % 06/07/18 11:34 Monocytes % (Manual) 9 % 06/07/18 11:34 Neutrophils # (Manual) 15.54 k/uL (1.3-7.7) H 06/07/18 11:34 Lymphocytes # (Manual) 1.30 k/uL (1.0-4.8) 06/07/18 11:34 Monocytes # (Manual) 1.67 k/uL (0-1.0) H 06/07/18 11:34 Nucleated RBCs 0 /100 WBC (0-0) 06/07/18 11:34 Manual Slide Review Performed 06/07/18 11:34 Poikilocytosis (manual Present 06/07/18 11:34 Crenated Cell Present 06/07/18 11:34 PT 13.3 sec (9.0-12.0) H 06/07/18 12:32 INR 1.3 (<1.2) H 06/07/18 12:32 APTT 33.9 sec (22.0-30.0) H 06/07/18 19:11 VBG pH 7.68 (7.31-7.41) H* 06/07/18 11:34 VBG pCO2 26 mmHg (37-51) L 06/07/18 11:34 VBG HCO3 32 mmol/L (24-28) H 06/07/18 11:34 Sodium 136 mmol/L (137-145) L 06/11/18 06:32 Potassium 3.7 mmol/L (3.5-5.1) 06/11/18 06:32 Chloride 98 mmol/L (98-107) 06/11/18 06:32 Carbon Dioxide 31 mmol/L (22-30) H 06/11/18 06:32 Anion Gap 7 mmol/L 06/11/18 06:32 BUN 25 mg/dL (9-20) H 06/11/18 06:32 Creatinine 0.83 mg/dL (0.66-1.25) 06/11/18 06:32 Est GFR (CKD-EPI)AfAm >90 (>60 ml/min/1.73 sqM) 06/11/18 06:32 Est GFR (CKD-EPI)NonAf 89 (>60 ml/min/1.73 sqM) 06/11/18 06:32 Glucose 87 mg/dL (74-99) 06/11/18 06:32 POC Glucose (mg/dL) 142 mg/dL (75-99) H 06/08/18 00:48 POC Glu Manager Front Office ID Karon Dumont 06/08/18 00:48 Lactic Ac Sepsis Rflx Y 06/07/18 12:24 Plasma Lactic Acid Faizan 1.1 mmol/L (0.7-2.0) 06/07/18 16:05 Calcium 8.6 mg/dL (8.4-10.2) 06/11/18 06:32 Magnesium 1.8 mg/dL (1.6-2.3) 06/07/18 11:34 Total Bilirubin 1.3 mg/dL (0.2-1.3) 06/07/18 11:34 Conjugated Bilirubin 0.0 mg/dL (0.0-0.3) 06/07/18 11:34 Unconjugated Bilirubin 1.0 mg/dL (0.0-1.1) 06/07/18 11:34 Delta Bilirubin 0.3 mg/dL (0.0-0.2) H 06/07/18 11:34 AST 83 U/L (17-59) H 06/07/18 11:34 ALT 83 U/L (21-72) H 06/07/18 11:34 Alkaline Phosphatase 148 U/L (38-126) H 06/07/18 11:34 Ammonia 36 umol/L (<30) H 06/07/18 11:34 Creatine Kinase 177 U/L (55-170) H 06/07/18 11:34 Troponin I 0.366 ng/mL (0.000-0.034) H* 06/07/18 22:22 NT-Pro-B Natriuret Pep 51886 pg/mL 06/08/18 06:40 Total Protein 6.0 g/dL (6.3-8.2) L 06/07/18 11:34 Albumin 2.8 g/dL (3.5-5.0) L 06/07/18 11:34 Triglycerides 70 mg/dL (<150) 06/08/18 06:40 Cholesterol 104 mg/dL (<200) 06/08/18 06:40 LDL Cholesterol, Calc 68 mg/dL (0-99) 06/08/18 06:40 HDL Cholesterol 22 mg/dL (40-60) L 06/08/18 06:40 Lipase 89 U/L (23-300) 06/07/18 11:34 Urine Color Yellow 06/07/18 19:00 Urine Appearance Clear (Clear) 06/07/18 19:00 Urine pH 7.0 (5.0-8.0) 06/07/18 19:00 Ur Specific Holton 1.010 (1.001-1.035) 06/07/18 19:00 Urine Protein Negative (Negative) 06/07/18 19:00 Urine Glucose (UA) Negative (Negative) 06/07/18 19:00 Urine Ketones Negative (Negative) 06/07/18 19:00 Urine Blood Negative (Negative) 06/07/18 19:00 Urine Nitrite Negative (Negative) 06/07/18 19:00 Urine Bilirubin Negative (Negative) 06/07/18 19:00 Urine Urobilinogen 2.0 mg/dL (<2.0) 06/07/18 19:00 Ur Leukocyte Esterase Negative (Negative) 06/07/18 19:00 Vancomycin Trough 33.1 ug/mL H* 06/11/18 13:48 Serum Alcohol <10 mg/dL 06/07/18 11:34 Influenza Type A RNA Not Detected (Not Detectd) 06/07/18 11:34 Influenza Type B (PCR) Not Detected (Not Detectd) 06/07/18 11:34 Microbiology 06/08/18 18:12 Blood Blood Culture Gram Stain - Preliminary 06/08/18 19:43 Blood Blood Culture Gram Stain - Preliminary 06/07/18 12:32 Blood Blood Culture Gram Stain - Final 06/07/18 12:32 Blood Blood Culture - Final Streptococcus bovis 06/08/18 18:12 Blood Blood Culture - Final 06/08/18 19:43 Blood Blood Culture - Final 06/07/18 12:32 Blood Blood Culture - Final - Imaging and Cardiology CT scan - abdomen: report reviewed (No evidence of any diverticulitis or intra- abdominal abscess but is likely an abscess on the left lower abdominal wall) Assessment and Plan (1) Weakness Current Visit: Yes Status: Acute Code(s): R53.1 - WEAKNESS SNOMED Code(s): 71942226 (2) Multiple falls Current Visit: Yes Status: Acute Code(s): R29.6 - REPEATED FALLS SNOMED Code(s): 843597627 (3) Streptococcus bovis infection Narrative/Plan: this 68-year-old male does have a approximate three-week history of a significant change of his functional status. The patient started to feel weak and started to have some falls at that point in time. He was not feeling well. Because of the change of his status he stopped drinking his alcohol which is between 9 and 10 beers a day. The family was present does verify this.is noted he is now had multiple falls has had an event of epistaxis after a fall and injury to his left ear. By the time he presents he has evidence of leukocytosis and workup has progressed and now there is evidence of a positive blood culture. And because of his bioprosthetic aortic valve the infectious disease consultation was requested. Laboratories contact and there is evidence of the Streptococcus growing from both blood cultures that were drawn at admission. Follow blood cultures are reported been requested and are in process. while cultures are process antibiotic therapy with vancomycin is being utilized. Cardiology was contacted and we requested KENTON be performed given the bioprosthetic valve in the positive blood cultures. There is concern that the patient has a subacute prosthetic valve endocarditis resulting in his multiweek course of declining status. the patient's family is informed of the concerns and the importance of evaluation and treatment.as noted on the exam the patient has multiple areas of ecchymosis and skin abrasions, has multiple portals of entry for the streptococcal bacteremia 06/10/2018 the patient is now had the KENTON performed without evidence of endocarditis. The blood cultures are now coming back as positive for Streptococcus bovis. This has a strong link to gastrointestinal source of the bacteremia. Given his history of alcoholism and prior history of gastrointestinal bleed of undetermined course there is concerned intra-abdominal pathology for his current infection. He likely has had a subacute infection with bacteremia occurring through this timeframe. He has noted likely is the etiology of his weakness and declining status. Computed tomography scan of the abdomen and pelvis with oral and IV contrast have been requested to further evaluate. He may need further evaluation with gastroenterology, has been seen by Dr. Willis in the past. Follow blood cultures will be requested as of tomorrow. Once his clearance of bacteremia plans for outpatient intravenous antibiotic therapy will be made. 06/11/2018 the patient is feeling better. Responding well to antibiotic therapy. As noted no evidence of endocarditis. However continues to have evidence of positive blood cultures. Antibiotic therapy continues and he seems to be clinically improving. Follow blood cultures are requested to ensure the clearance of his bacteremia. We'll ask radiology if they can aspirate this area on the left lower quadrant determine if it is an abscess. Current Visit: Yes Status: Acute Code(s): A49.1 - STREPTOCOCCAL INFECTION, UNSPECIFIED SITE SNOMED Code(s): 79997194
--- NOTE | 2018-06-11 23:54 | PN ---
PROGRESS NOTE DATE OF SERVICE: 06/11/2018 This 68-year-old gentleman with CHF acute exacerbation also had possible KENTON was negative for endocarditis but CT scan showed abnormal findings including a small cystic structure. PAST MEDICAL HISTORY: Reviewed. REVIEW OF SYSTEMS: CARDIOVASCULAR: No angina or palpitations. RESPIRATORY: As mentioned earlier. GI mentioned earlier. : No dysuria or hematuria. CURRENT MEDICATIONS: Reviewed and include: Cordarone 200 mg daily, Eliquis 5 mg b.i.d., Pepcid 20 mg b.i.d. Lasix 40 mg, Neurontin, Imdur. Lopressor. Multivitamins. Aldactone and vancomycin. PHYSICAL EXAM: Patient is alert, oriented x3. Pulse 59, blood pressure 130/61, respiration 18, temperature 97.2, pulse ox 98% on 3 L. HEENT: Conjunctivae normal. NECK: No jugular venous distention. CARDIOVASCULAR: S1, S2 muffled. RESPIRATORY: Breath sounds diminished in the bases. Scattered rhonchi and crackles. ABDOMEN: Soft, nontender. No mass palpable. Legs are no edema. No swelling. Central nervous system: No focal deficits. LABS: At this time shows sodium 136, potassium 3.7. The white count is 18.5, hemoglobin is 10.3, INR is 1.3. ASSESSMENT: 1. Congestive heart failure acute exacerbation with acute on chronic diastolic dysfunction, ejection fraction 50-55 percent. 2. History of sepsis. 3. Abnormal CT scan with small cystic findings. 4. KENTON negative endocarditis. 5. Hypertensive heart disease. 6. Alcohol induced myopathy. 7. Hypertension. 8. bicuspid aortic valve. 9. Peripheral artery disease. 10.Degenerative joint disease. 11.Coronary artery disease. 12.Hyperlipidemia. 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 14.Chronic diverticulosis. 15.Obesity, body mass index of 36.6. 16.History of coronary artery disease with aortic valve replacement on Eliquis. 17.Paroxysmal atrial fibrillation. The patient on Eliquis. 18.Troponin 0.398. 19.Possible acute non ST-segment elevation myocardial infarction. 20.Possibly type 2 myocardial function. RECOMMENDATIONS AND DISCUSSION: Recommend to continue current medications, management and symptomatic treatment. Continue with antibiotics. I would also recommend surgical evaluation. Repeat labs will be ordered and I would also recommend monitoring the liver functions also. NT proBNP is also significantly elevated. Once again, the prognosis extremely guarded because of multiple complex medical issues and further recommendations to follow. AVIVA / IJN: [id number] / LADY
--- NOTE | 2018-06-11 23:57 | PN ---
PROGRESS NOTE DATE OF SERVICE: 06/11/2018 This 68-year-old gentleman who was admitted with CHF, acute exacerbation, also had positive blood cultures with Streptococcus bovis. Multiple consultants, including Dr. Ortez and Cardiology, are following the patient. The patient is on broad-spectrum IV antibiotics. A CT scan of the abdomen and pelvis was done today which showed evidence of a smooth oval cystic structure measuring 5.8 x 3.1 cm in the anterior left pelvis deep to the skin surface. Past medical history reviewed. REVIEW OF SYSTEMS: CARDIOVASCULAR SYSTEM: No angina, palpitations. RESPIRATORY SYSTEM: As mentioned earlier. GI: As mentioned earlier. : No dysuria or retention. NERVOUS SYSTEM: No numbness, weakness. CURRENT MEDICATIONS: Reviewed. They include: 1. Cordarone 200 mg p.o. daily. 2. Eliquis 5 mg p.o. b.i.d. 3. Pepcid 20 mg p.o. b.i.d. 4. Lasix 40 mg p.o. daily. 5. Neurontin 100 mg p.o. t.i.d. 6. Imdur 50 mg p.o. daily. 7. Lopressor 25 mg b.i.d. 8. Multivitamins 1 p.o. daily. 9. Narcan. 10.Nitrostat. 11.Aldactone. PHYSICAL EXAMINATION: Dictation ends abruptly. MMODL / IJN: [id number] /
[2018-06-12] MEDS: FAMOTIDINE 20 MG TAB PO SCH ×2 (07:19→21:08)
[2018-06-12] MEDS: METOPROLOL TARTRATE 25 MG TAB PO SCH ×2 (07:19→21:07)
[2018-06-12] MEDS: FUROSEMIDE 40 MG TAB PO SCH (07:19)
[2018-06-12] MEDS: APIXABAN 5 MG TAB PO SCH ×2 (07:19→21:08)
[2018-06-12] MEDS: SPIRONOLACTONE 25 MG TAB PO SCH (07:19)
[2018-06-12] MEDS: GABAPENTIN 100 MG CAP PO SCH ×3 (07:19→22:42)
[2018-06-12] MEDS: AMIODARONE 200 MG TAB PO SCH (07:19)
[2018-06-12] MEDS: ISOSORBIDE MONONITRATE ER 15 MG TAB PO SCH (07:20)
[2018-06-12 08:35] LABS: Basophils # (A) 0.1 k/uL (0-0.2); Basophils % (A) 1 %; Eosinophils # (A) 0.2 k/uL (0-0.7); Eosinophils % (A) 2 %; HCT 30.4 % (39.0-53.0); HGB 9.9 gm/dL (13.0-17.5); Lymphocytes # (A) 0.7 k/uL (1.0-4.8); Lymphocytes % (A) 7 %; MCH 30.9 pg (25.0-35.0); MCHC 32.5 g/dL (31.0-37.0); MCV 94.9 fL (80.0-100.0); Mean Platelet Volume 7.1; Monocytes # (A) 0.6 k/uL (0-1.0); Monocytes % (A) 6 %; Neutrophils # (A) 8.6 k/uL (1.3-7.7); Neutrophils % (A) 83 %; Platelet Count 227 k/uL (150-450); RDW 15.9 % (11.5-15.5); WBC 10.4 k/uL (3.8-10.6)
[2018-06-12 08:46] LABS: ALT 70 U/L (21-72); AST 42 U/L (17-59); Albumin 2.6 g/dL (3.5-5.0); Alkaline Phosphatase 110 U/L (38-126); Anion Gap 6 mmol/L; Blood Urea Nitrogen 19 mg/dL (9-20); Calcium 8.3 mg/dL (8.4-10.2); Carbon Dioxide 31 mmol/L (22-30); Chloride 99 mmol/L (98-107); Glucose 102 mg/dL (74-99); Potassium 3.6 mmol/L (3.5-5.1); Sodium 136 mmol/L (137-145); Total Bilirubin 0.7 mg/dL (0.2-1.3); Total Protein 5.8 g/dL (6.3-8.2)
[2018-06-12] MEDS: VANCOMYCIN 2,000 MG in SODIUM CHLORIDE 0.9% 500 ML 500 ML IVPB SCH (09:29)
--- NOTE | 2018-06-12 11:35 | P.GSCN ---
History of Present Illness Consult date: 06/12/18 Reason for Consult: abnormal CT scan Requesting physician: Michael Richards History of present illness: CHIEF COMPLAINT: abnormal CT scan HISTORY OF PRESENT ILLNESS: 68-year-old male who underwent CT scan yesterday revealing moderate sized periumbilical hernia and left sided cystic structure measuring 5.8 x 3.1 cm. No significant surrounding inflammation to support an abscess at this time. General surgery was consulted for further evaluation. Patient was examined at the bedside this morning by Dr. Hernandez. Patient reports hernia has been present for many years and has not caused the patient any problems. Denies pain at the site of hernia. Denies nausea or vomiting. PAST MEDICAL HISTORY: See list. PAST SURGICAL HISTORY: See list. SOCIAL HISTORY: No illicit drug use. REVIEW OF SYSTEMS: CONSTITUTIONAL: Denies fever or chills. HEENT: Denies blurred vision, vision changes, or eye pain. Denies hemoptysis CARDIOVASCULAR: Denies chest pain or pressure. RESPIRATORY: No shortness of breath. GASTROINTESTINAL: Refer to HPI for pertinent findings HEMATOLOGIC: Denies bleeding disorders. GENITOURINARY: Denies any blood in urine. PHYSICAL EXAM: VITAL SIGNS: Reviewed. GENERAL: Well-developed in no acute distress. HEENT: No sclera icterus. Extraocular movements grossly intact. Moist buccal mucosa. Head is atraumatic, normocephalic. ABDOMEN: Soft. Nondistended. Hernia present. Nontender. NEUROLOGIC: Alert and oriented. Cranial nerves II through XII grossly intact ASSESSMENT: 1. Moderate sized periumbilical hernia 2. Left anterior pelvis cystic structure, no evidence of abscess per CT PLAN: 1. No inpatient surgical intervention. Patient may follow up with Dr. Hernandez outpatient regarding hernia 2. Management of cyst per Dr. Ortez and medicine. Nursing reports possible drainage per IR Nurse practitioner note has been reviewed by physician. Signing provider agrees with the documented findings, assessment, and plan of care. Past Medical History Past Medical History: Atrial Fibrillation, Cancer, GI Bleed, Hyperlipidemia, Hypertension, Myocardial Infarction (NH), Osteoarthritis (OA), Vascular Disorder Additional Past Medical History / Comment(s): PVD, BACK PAIN, SWELLING IN ANKLES AND FEET, hx SKIN CANCER Last Myocardial Infarction Date:: 01-20-13 History of Any Multi-Drug Resistant Organisms: None Reported Past Surgical History: Heart Catheterization, Heart Catheterization With Stent Additional Past Surgical History / Comment(s): aortic valve replacement 2012, aortogram, pt states 2 failed stent replacement-1 to each leg, PAIN CLINIC PROCEDURES, ABDOMINAL AORTOGRAM, Past Anesthesia/Blood Transfusion Reactions: No Reported Reaction Date of Last Stent Placement:: 05/30/15 Past Psychological History: No Psychological Hx Reported Smoking Status: Former smoker Past Alcohol Use History: None Reported, Daily Additional Past Alcohol Use History / Comment(s): Quit smoking October 2014, smoked for >50 yrs. Patient drinks 9-10 beers per day and quit 3 weeks ago. He is currently living alone. No pets in the home. 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 He was in the [employer] stationed in [place]. He denies any travel. Past Drug Use History: None Reported - Past Family History Mother Family Medical History: Deep Vein Thrombosis (DVT) Medications and Allergies Home Medications Medication Instructions Recorded Confirmed Type Atorvastatin [Lipitor] 80 mg PO HS 10/06/14 06/07/18 History Metoprolol Tartrate [Lopressor] 25 mg PO BID 10/06/14 06/07/18 History Multivit-Min/FA/Lycopene/Lut 1 tab PO DAILY 10/06/14 06/07/18 History [Centrum Silver Tablet] Anthony-3 Fatty Acids/Fish Oil [Fish 1 cap PO DAILY 10/06/14 06/07/18 History Oil 1,000 mg Softgel] Nitroglycerin Sl Tabs [Nitrostat] 0.4 mg SUBLINGUAL Q5M PRN #25 tab 05/14/15 06/07/18 Rx Amiodarone HCl [Pacerone] 200 mg PO DAILY 06/27/16 06/07/18 History Gabapentin [Neurontin] 400 mg PO TID #90 cap 10/08/16 06/07/18 Rx Spironolactone [Aldactone] 25 mg PO DAILY 05/15/17 06/07/18 History Isosorbide Mononitrate ER [Imdur] 15 mg PO DAILY dose 05/22/17 06/07/18 Rx Apixaban [Eliquis] 5 mg PO BID 09/24/17 06/07/18 History Metolazone [Zaroxolyn] 2.5 mg PO DAILY 02/10/18 06/07/18 History Furosemide [Lasix] 80 mg PO BID 04/07/18 06/07/18 History Potassium Chloride ER [K-Dur 20] 20 meq PO BID 05/30/18 06/07/18 History Ranitidine HCl [Zantac] 150 mg PO BID 05/30/18 06/07/18 History Vitamin B Complex 1 cap PO DAILY 06/07/18 06/07/18 History Allergies Allergy/AdvReac Type Severity Reaction Status Date / Time No Known Allergies Allergy Verified 06/07/18 12:27 Surgical - Exam Vital Signs Temp Pulse Resp BP Pulse Ox 100.5 F H 76 24 135/58 96 06/07/18 10:56 06/07/18 10:56 06/07/18 10:56 06/07/18 10:56 06/07/18 10:56 Results - Labs 06/12/18 08:03 06/12/18 08:03 Abnormal Lab Results - Last 24 Hours (Table) 06/11/18 06/12/18 06/12/18 Range/Units 13:48 08:03 08:03 RBC 3.20 L (4.30-5.90) m/uL Hgb 9.9 L (13.0-17.5) gm/dL Hct 30.4 L (39.0-53.0) % RDW 15.9 H (11.5-15.5) % Neutrophils # 8.6 H (1.3-7.7) k/uL Lymphocytes # 0.7 L (1.0-4.8) k/uL Sodium 136 L (137-145) mmol/L Carbon Dioxide 31 H (22-30) mmol/L Glucose 102 H (74-99) mg/dL Calcium 8.3 L (8.4-10.2) mg/dL Total Protein 5.8 L (6.3-8.2) g/dL Albumin 2.6 L (3.5-5.0) g/dL Vancomycin Trough 33.1 H* ug/mL Microbiology - Last 24 Hours (Table) 06/11/18 06:54 Blood Culture - Preliminary Blood No Growth after 24 hours 06/11/18 06:32 Blood Culture - Preliminary Blood No Growth after 24 hours Diabetes panel 06/12/18 Range/Units 08:03 Sodium 136 L (137-145) mmol/L Potassium 3.6 (3.5-5.1) mmol/L Chloride 99 (98-107) mmol/L Carbon Dioxide 31 H (22-30) mmol/L BUN 19 (9-20) mg/dL Creatinine 0.71 (0.66-1.25) mg/dL Glucose 102 H (74-99) mg/dL Calcium 8.3 L (8.4-10.2) mg/dL AST 42 (17-59) U/L ALT 70 (21-72) U/L Alkaline Phosphatase 110 (38-126) U/L Total Protein 5.8 L (6.3-8.2) g/dL Albumin 2.6 L (3.5-5.0) g/dL Calcium panel 06/12/18 Range/Units 08:03 Calcium 8.3 L (8.4-10.2) mg/dL Albumin 2.6 L (3.5-5.0) g/dL Pituitary panel 06/12/18 Range/Units 08:03 Sodium 136 L (137-145) mmol/L Potassium 3.6 (3.5-5.1) mmol/L Chloride 99 (98-107) mmol/L Carbon Dioxide 31 H (22-30) mmol/L BUN 19 (9-20) mg/dL Creatinine 0.71 (0.66-1.25) mg/dL Glucose 102 H (74-99) mg/dL Calcium 8.3 L (8.4-10.2) mg/dL Adrenal panel 06/12/18 Range/Units 08:03 Sodium 136 L (137-145) mmol/L Potassium 3.6 (3.5-5.1) mmol/L Chloride 99 (98-107) mmol/L Carbon Dioxide 31 H (22-30) mmol/L BUN 19 (9-20) mg/dL Creatinine 0.71 (0.66-1.25) mg/dL Glucose 102 H (74-99) mg/dL Calcium 8.3 L (8.4-10.2) mg/dL Total Bilirubin 0.7 (0.2-1.3) mg/dL AST 42 (17-59) U/L ALT 70 (21-72) U/L Alkaline Phosphatase 110 (38-126) U/L Total Protein 5.8 L (6.3-8.2) g/dL Albumin 2.6 L (3.5-5.0) g/dL
[2018-06-12] MEDS: MULTIVITAMINS, THERA 1 EACH TAB PO SCH (11:46)
[2018-06-12 12:33] VITALS: BMI 37.8
--- NOTE | 2018-06-12 17:53 | PN ---
PROGRESS NOTE DATE OF SERVICE: 06/12/2018 This 68-year-old gentleman admitted with CHF, acute exacerbation, also had positive blood cultures with Strep bovis. The patient also had a cystic lesion in the CT scan of the abdomen which is being planned to be aspirated by Interventional Radiology. Surgery is also following the patient. No acute active surgical intervention is being planned at this time. Infectious Disease is also following the patient closely. Past medical history reviewed. REVIEW OF SYSTEMS: CARDIOVASCULAR SYSTEM: No angina, palpitations. RESPIRATORY SYSTEM: As mentioned earlier. GI: As mentioned earlier. : No dysuria or retention. NERVOUS SYSTEM: No numbness, weakness. CURRENT MEDICATIONS: Reviewed. They include: 1. Cordarone 200 mg p.o. daily. 2. Eliquis 5 mg p.o. b.i.d. 3. Pepcid 20 mg b.i.d. 4. Lasix 40 mg p.o. daily. 5. Neurontin 100 mg p.o. b.i.d. 6. Imdur 50 mg p.o. daily. 7. Lopressor 25 mg p.o. b.i.d. 8. Vancomycin. 9. Multivitamins. 10.Narcan 0.2 q.2 p.r.n. 11.Nitrostat. 12.Aldactone 50 mg p.o. daily. PHYSICAL EXAMINATION: Patient is alert, oriented x3. Pulse 53, blood pressure 158/72, respiration 16, temperature 98.3, pulse ox 100% on 3 L. HEENT: Conjunctivae normal. NECK: No jugular venous distention. CARDIOVASCULAR SYSTEM: S1, S2 muffled. RESPIRATORY SYSTEM: Breath sounds diminished at the bases. A few scattered rhonchi and crackles. ABDOMEN: Soft, obese, non-tender. No mass palpable. LEGS: No edema. No swelling. NERVOUS SYSTEM: No focal deficit. LABS: WBC 10.4, hemoglobin 9.9. Sodium 136. Vancomycin 33.1. ASSESSMENT: 1. Congestive heart failure, acute exacerbation, with acute on chronic diastolic dysfunction, ejection fraction 50% to 55%. 2. Streptococcus bovis sepsis. 3. Abnormal CT scan finding with a cystic lesion. 4. Transesophageal echocardiogram negative for endocarditis. 5. Hypertensive heart disease. 6. Alcohol-induced myopathy. 7. Hypertension. 8. Bicuspid aortic valve. 9. Peripheral artery disease. 10.Degenerative joint disease. 11.History of coronary artery disease. 12.Hyperlipidemia. 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 14.Chronic diverticulosis. 15.Obesity; body mass index of 36.6. 16.History of coronary artery disease and aortic valve replacement. 17.Paroxysmal atrial fibrillation, on Eliquis. 18.Troponin 0.398. 19.Possible acute zog-VK-gybuyum-elevation myocardial infarction, possibly type 2 myocardial infarction. RECOMMENDATIONS AND DISCUSSION: I recommend to continue current medications, continue with the monitoring, symptomatic treatment. Otherwise at this time I would recommend following the patient closely. Eliquis may be held in contemplation of cyst aspiration. Otherwise, continue the rest of the medications. Monitor electrolytes closely. Follow closely with multiple consultants. Guarded prognosis because of multiple complex medical issues. Further recommendations to follow. MMODL / IJN: [id number] /
--- NOTE | 2018-06-12 23:21 | P.PN ---
Subjective Progress Note Date: 06/12/18 This is a 68-year-old male patient that gives history of falling 3-4 times at home. He states he may have some bruising but denies any significant injuries. Patient has difficulty getting off the floor after his falls and has been on the floor for extended periods. He complains of generalized weakness and malaise and shortness of breath. He normally uses a walker for ambulation. He denies fever, chills or rigors at home, no cough or sputum production. He denies dysuria, urinary retention or difficulty with urinary flow. No significant joint or muscle aches. Patient states he had similar symptoms around 2 months ago with multiple falls but does not recall if he sought treatment at bedtime. He also gives history that he normally drinks 9-10 beers per day but quit drinking 3 weeks ago. His family determined that he needed to come into the [facility] emergency center for evaluation. Patient was found to have a temperature of 100.5. White count was 18.5. El ectrolyte abnormalities included sodium 128, potassium 3.2, chloride 86, CO2 32, BUN was 38 and creatinine 1.06. AST 83, ALT 83, alkaline phosphatase 148. Ammonia level was 36. CK 177, proBNP 13,600, albumin 2.8, lipase normal. Troponin 0.447, 0.398, 0.366. Urinalysis was clear with nitrate and leukoesterase negative. Influenza testing negative. Alcohol less than 10. Blood culture was positive for strep species and thus this infectious disease consult was requested. A repeat blood culture was obtained last evening and is status received. A Tee catheter has been placed on this admission. Patient does have a bioprosthetic aortic valve. He is planning to go to subacute rehab at the time of discharge 06/10/2018 the patient is sitting upright and has had some of his dinner. Feel ing slightly better today. Not having high-grade fevers, chills or rigors. But does have generalized weakness. The transesophageal echocardiogram was performed that shows evidence of the bioprosthetic aortic valve that is intact with some valvular thickening but no evidence of endocarditis, no other valvular lesions were seen. Blood cultures now coming back positive with Streptococcus bovis. The family relates that he does have a history of gastrointestinal bleeding of approximately one year ago which point in time he did have upper and lower endoscopy. Apparently nonmalignant polyps were seen but no evidence of the site of bleeding was found. Patient is not having active bleeding at this time. 06/12/2018 patient is feeling somewhat better today. Is under the KENTON without evidence of endocarditis. Computed tomography scan of the abdomen and pelvis reveals evidence of a fluid collection in the lower pelvis that cannot be excluded as to an infection. At this time all blood cultures are positive for Streptococcus bovis. The patient fortunately is feeling slightly better. Jesika dueñas's questions are answered. Objective - Vital Signs Vital signs: Vital Signs Temp 98.3 F 06/12/18 14:45 Pulse 66 06/12/18 21:05 Resp 16 06/12/18 20:15 BP 148/73 06/12/18 21:05 Pulse Ox 93 L 06/12/18 17:09 Intake & Output 06/12/18 06/12/18 06/13/18 06:59 18:59 06:59 Intake Total 1445 980 Output Total 200 Balance 1445 -200 980 Weight 126.5 kg 126.5 kg Intake: Intake, IV Titration 675 500 Amount Vancomycin 2,000 mg In 675 Sodium Chloride 0.9% 500 ml 500 ml @ 167 mls/hr IVPB Q12HR CARLOS Rx#: [id number] Vancomycin 2,000 mg In 500 Sodium Chloride 0.9% 500 ml 500 ml @ 167 mls/hr IVPB Q12HR CARLOS Rx#: [id number] Oral 770 480 Output: Urine 200 Other: Voiding Method Urinal Urinal Urinal # Voids 1 3 - Exam Gen: This is a obese 68-year-old male. He is found sitting on the edge of the bed and appears to be comfortable and in no acute distress. No respiratory distress is noted. HEENT: Head is atraumatic, normocephalic. Pupils equal, round. Sclerae is anicteric. Conjunctiva pink. Mucous members of the mouth are moist. No oropharyngeal erythema or edema. Small abrasion to the left auricle. NECK: Supple. No JVD. No lymphadenopathy. No thyromegaly. LUNGS: Clear to auscultation. No wheezes or rhonchi. No intercostal retractions. HEART: Regular rate and rhythm. Systolic murmur. ABDOMEN: Soft. Bowel sounds are present. On the left lower abdominal wall at the lowest aspect of the pelvis is a small palpable area that is slightly fluctuant it is not tender has mild ecchymosis. No tenderness. Positive soft u mbilical hernia. EXTREMITIES: 1+ pedal edema. No calf tenderness. NEUROLOGICAL: Patient is awake, alert and oriented x3 - Labs CBC & Chem 7: 06/12/18 08:03 06/12/18 08:03 Labs: Abnormal Lab Results - Last 24 Hours (Table) 06/12/18 06/12/18 Range/Units 08:03 08:03 RBC 3.20 L (4.30-5.90) m/uL Hgb 9.9 L (13.0-17.5) gm/dL Hct 30.4 L (39.0-53.0) % RDW 15.9 H (11.5-15.5) % Neutrophils # 8.6 H (1.3-7.7) k/uL Lymphocytes # 0.7 L (1.0-4.8) k/uL Sodium 136 L (137-145) mmol/L Carbon Dioxide 31 H (22-30) mmol/L Glucose 102 H (74-99) mg/dL Calcium 8.3 L (8.4-10.2) mg/dL Total Protein 5.8 L (6.3-8.2) g/dL Albumin 2.6 L (3.5-5.0) g/dL Microbiology - Last 24 Hours (Table) 06/08/18 19:43 Blood Culture Gram Stain - Final Blood Blood Culture - Preliminary Group D Not Enterococcus 06/11/18 06:54 Blood Culture - Preliminary Blood No Growth after 24 hours 06/11/18 06:32 Blood Culture - Preliminary Blood No Growth after 24 hours Laboratory Results WBC 10.4 k/uL (3.8-10.6) 06/12/18 08:03 RBC 3.20 m/uL (4.30-5.90) L 06/12/18 08:03 Hgb 9.9 gm/dL (13.0-17.5) L 06/12/18 08:03 Hct 30.4 % (39.0-53.0) L 06/12/18 08:03 MCV 94.9 fL (80.0-100.0) 06/12/18 08:03 MCH 30.9 pg (25.0-35.0) 06/12/18 08:03 MCHC 32.5 g/dL (31.0-37.0) 06/12/18 08:03 RDW 15.9 % (11.5-15.5) H 06/12/18 08:03 Plt Count 227 k/uL (150-450) 06/12/18 08:03 Neutrophils % 83 % 06/12/18 08:03 Neutrophils % (Manual) 84 % 06/07/18 11:34 Lymphocytes % 7 % 06/12/18 08:03 Lymphocytes % (Manual) 7 % 06/07/18 11:34 Monocytes % 6 % 06/12/18 08:03 Monocytes % (Manual) 9 % 06/07/18 11:34 Eosinophils % 2 % 06/12/18 08:03 Basophils % 1 % 06/12/18 08:03 Neutrophils # 8.6 k/uL (1.3-7.7) H 06/12/18 08:03 Neutrophils # (Manual) 15.54 k/uL (1.3-7.7) H 06/07/18 11:34 Lymphocytes # 0.7 k/uL (1.0-4.8) L 06/12/18 08:03 Lymphocytes # (Manual) 1.30 k/uL (1.0-4.8) 06/07/18 11:34 Monocytes # 0.6 k/uL (0-1.0) 06/12/18 08:03 Monocytes # (Manual) 1.67 k/uL (0-1.0) H 06/07/18 11:34 Eosinophils # 0.2 k/uL (0-0.7) 06/12/18 08:03 Basophils # 0.1 k/uL (0-0.2) 06/12/18 08:03 Nucleated RBCs 0 /100 WBC (0-0) 06/07/18 11:34 Manual Slide Review Performed 06/07/18 11:34 Poikilocytosis (manual Present 06/07/18 11:34 Crenated Cell Present 06/07/18 11:34 PT 13.3 sec (9.0-12.0) H 06/07/18 12:32 INR 1.3 (<1.2) H 06/07/18 12:32 APTT 33.9 sec (22.0-30.0) H 06/07/18 19:11 VBG pH 7.68 (7.31-7.41) H* 06/07/18 11:34 VBG pCO2 26 mmHg (37-51) L 06/07/18 11:34 VBG HCO3 32 mmol/L (24-28) H 06/07/18 11:34 Sodium 136 mmol/L (137-145) L 06/12/18 08:03 Potassium 3.6 mmol/L (3.5-5.1) 06/12/18 08:03 Chloride 99 mmol/L (98-107) 06/12/18 08:03 Carbon Dioxide 31 mmol/L (22-30) H 06/12/18 08:03 Anion Gap 6 mmol/L 06/12/18 08:03 BUN 19 mg/dL (9-20) 06/12/18 08:03 Creatinine 0.71 mg/dL (0.66-1.25) 06/12/18 08:03 Est GFR (CKD-EPI)AfAm >90 (>60 ml/min/1.73 sqM) 06/12/18 08:03 Est GFR (CKD-EPI)NonAf >90 (>60 ml/min/1.73 sqM) 06/12/18 08:03 Glucose 102 mg/dL (74-99) H 06/12/18 08:03 POC Glucose (mg/dL) 142 mg/dL (75-99) H 06/08/18 00:48 POC Glu Director Money ID Karon Dumont 06/08/18 00:48 Lactic Ac Sepsis Rflx Y 06/07/18 12:24 Plasma Lactic Acid Faizan 1.1 mmol/L (0.7-2.0) 06/07/18 16:05 Calcium 8.3 mg/dL (8.4-10.2) L 06/12/18 08:03 Magnesium 1.8 mg/dL (1.6-2.3) 06/07/18 11:34 Total Bilirubin 0.7 mg/dL (0.2-1.3) 06/12/18 08:03 Conjugated Bilirubin 0.0 mg/dL (0.0-0.3) 06/07/18 11:34 Unconjugated Bilirubin 1.0 mg/dL (0.0-1.1) 06/07/18 11:34 Delta Bilirubin 0.3 mg/dL (0.0-0.2) H 06/07/18 11:34 AST 42 U/L (17-59) 06/12/18 08:03 ALT 70 U/L (21-72) 06/12/18 08:03 Alkaline Phosphatase 110 U/L (38-126) 06/12/18 08:03 Ammonia 36 umol/L (<30) H 06/07/18 11:34 Creatine Kinase 177 U/L (55-170) H 06/07/18 11:34 Troponin I 0.366 ng/mL (0.000-0.034) H* 06/07/18 22:22 NT-Pro-B Natriuret Pep 33637 pg/mL 06/08/18 06:40 Total Protein 5.8 g/dL (6.3-8.2) L 06/12/18 08:03 Albumin 2.6 g/dL (3.5-5.0) L 06/12/18 08:03 Triglycerides 70 mg/dL (<150) 06/08/18 06:40 Cholesterol 104 mg/dL (<200) 06/08/18 06:40 LDL Cholesterol, Calc 68 mg/dL (0-99) 06/08/18 06:40 HDL Cholesterol 22 mg/dL (40-60) L 06/08/18 06:40 Lipase 89 U/L (23-300) 06/07/18 11:34 Urine Color Yellow 06/07/18 19:00 Urine Appearance Clear (Clear) 06/07/18 19:00 Urine pH 7.0 (5.0-8.0) 06/07/18 19:00 Ur Specific [place] 1.010 (1.001-1.035) 06/07/18 19:00 Urine Protein Negative (Negative) 06/07/18 19:00 Urine Glucose (UA) Negative (Negative) 06/07/18 19:00 Urine Ketones Negative (Negative) 06/07/18 19:00 Urine Blood Negative (Negative) 06/07/18 19:00 Urine Nitrite Negative (Negative) 06/07/18 19:00 Urine Bilirubin Negative (Negative) 06/07/18 19:00 Urine Urobilinogen 2.0 mg/dL (<2.0) 06/07/18 19:00 Ur Leukocyte Esterase Negative (Negative) 06/07/18 19:00 Vancomycin Trough 33.1 ug/mL H* 06/11/18 13:48 Serum Alcohol <10 mg/dL 06/07/18 11:34 Influenza Type A RNA Not Detected (Not Detectd) 06/07/18 11:34 Influenza Type B (PCR) Not Detected (Not Detectd) 06/07/18 11:34 Microbiology 06/08/18 19:43 Blood Blood Culture Gram Stain - Final 06/08/18 19:43 Blood Blood Culture - Preliminary Group D Not Enterococcus 06/11/18 06:54 Blood Blood Culture - Preliminary No Growth after 24 hours 06/11/18 06:32 Blood Blood Culture - Preliminary No Growth after 24 hours 06/08/18 18:12 Blood Blood Culture Gram Stain - Preliminary 06/07/18 12:32 Blood Blood Culture Gram Stain - Final 06/07/18 12:32 Blood Blood Culture - Final Streptococcus bovis 06/08/18 18:12 Blood Blood Culture - Final 06/08/18 19:43 Blood Blood Culture - Final 06/07/18 12:32 Blood Blood Culture - Final - Imaging and Cardiology CT scan - abdomen: report reviewed (No intra-abdominal abscess) Assessment and Plan (1) Weakness Current Visit: Yes Status: Acute Code(s): R53.1 - WEAKNESS SNOMED Code(s): 51581372 (2) Multiple falls Current Visit: Yes Status: Acute Code(s): R29.6 - REPEATED FALLS SNOMED Code(s): 057165620 (3) Streptococcus bovis infection Narrative/Plan: this 68-year-old male does have a approximate three-week history of a significant change of his functional status. The patient started to feel weak and started to have some falls at that point in time. He was not feeling well. Because of the change of his status he stopped drinking his alcohol which is b etween 9 and 10 beers a day. The family was present does verify this.is noted he is now had multiple falls has had an event of epistaxis after a fall and injury to his left ear. By the time he presents he has evidence of leukocytosis and workup has progressed and now there is evidence of a positive blood culture. And because of his bioprosthetic aortic valve the infectious disease consultation was requested. Laboratories contact and there is evidence of the Streptococcus growing from both blood cultures that were drawn at admission. Follow blood cultures are reported been requested and are in process. while cultures are process antibiotic therapy with vancomycin is being utilized. Cardiology was contacted and we requested KENTON be performed given the bioprosthetic valve in the positive blood cultures. There is concern that the patient has a subacute prosthetic valve endocarditis resulting in his multiweek course of declining status. the patient's family is informed of the concerns and the importance of evaluation and treatment.as noted on the exam the patient has multiple areas of ecchymosis and skin abrasions, has multiple portals of entry for the streptococcal bacteremia 06/10/2018 the patient is now had the KENTON performed without evidence of endocarditis. The blood cultures are now coming back as positive for Streptococcus bovis. This has a strong link to gastrointestinal source of the bacteremia. Given his history of alcoholism and prior history of gastrointestinal bleed of undetermined course there is concerned intra-abdominal pathology for his current infection. He likely has had a subacute infection with bacteremia occurring through this timeframe. He has noted likely is the etiology of his weakness and declining status. Computed tomography scan of the abdomen and pelvis with oral and IV contrast have been requested to further evaluate. He may need further evaluation with gastroenterology, has been seen by Dr. Willis in the past. Follow blood cultures will be requested as of tomorrow. Once his clearance of bacteremia plans for outpatient intravenous antibiotic therapy will be made. 06/11/2018 the patient is feeling better. Responding well to antibiotic therapy. As noted no evidence of endocarditis. However continues to have evidence of positive blood cultures. Antibiotic therapy continues and he seems to be clinically improving. Follow blood cultures are requested to ensure the clearance of his bacteremia. We'll ask radiology if they can aspirate this area on the left lower quadrant determine if it is an abscess. 06/12/2018 patient is feeding further improvement. Appetite improved. Energy level is improved. Fevers improved. There is no evidence of 24 hours of negative blood culture from the Streptococcus bovis. If in the next year. Time there is evidence of negative blood cultures then intravenous access can be requested and utilize in the outpatient setting. Currently planning ceftriaxone in the home setting the time of his discharge. Current Visit: Yes Status: Acute Code(s): A49.1 - STREPTOCOCCAL INFECTION, UNSPECIFIED SITE SNOMED Code(s): 75192294
[2018-06-13] MEDS: SPIRONOLACTONE 25 MG TAB PO SCH (10:11)
[2018-06-13] MEDS: FAMOTIDINE 20 MG TAB PO SCH ×2 (10:11→22:16)
[2018-06-13] MEDS: GABAPENTIN 100 MG CAP PO SCH ×3 (10:12→22:15)
[2018-06-13] MEDS: FUROSEMIDE 40 MG TAB PO SCH (10:12)
[2018-06-13] MEDS: ISOSORBIDE MONONITRATE ER 15 MG TAB PO SCH (10:12)
[2018-06-13] MEDS: METOPROLOL TARTRATE 25 MG TAB PO SCH ×2 (10:13→22:15)
[2018-06-13] MEDS: MULTIVITAMINS, THERA 1 EACH TAB PO SCH (10:13)
[2018-06-13] MEDS: AMIODARONE 200 MG TAB PO SCH (10:13)
--- NOTE | 2018-06-13 10:46 | P.PN ---
Progress Note - Text Progress Note Date: 06/13/18 The patient feels better. He is up ambulating in his room. On exam is lesser stable. His abdomen soft. Patient's umbilical hernia stable. Chronic umbilical hernia. Patient will have this repaired once he is medically stable.
[2018-06-13] MEDS ORDERED: VANCOMYCIN TROUGH DUE 1 EACH MISC MISCELLANE ONE (11:00)
[2018-06-13 11:20] LABS: Anisocytosis Slight; Basophils % (A) 1 %; Eosinophils # (A) 0.1 k/uL (0-0.7); Eosinophils % (A) 2 %; HCT 29.6 % (39.0-53.0); HGB 9.5 gm/dL (13.0-17.5); Lymphocytes # (A) 0.6 k/uL (1.0-4.8); Lymphocytes % (A) 7 %; MCH 31.1 pg (25.0-35.0); Mean Platelet Volume 7.2; Monocytes # (A) 0.6 k/uL (0-1.0); Monocytes % (A) 7 %; Neutrophils # (A) 7.2 k/uL (1.3-7.7); Neutrophils % (A) 82 %; Platelet Count 203 k/uL (150-450); RBC 3.05 m/uL (4.30-5.90); RDW 16.2 % (11.5-15.5); WBC 8.7 k/uL (3.8-10.6)
[2018-06-13 11:28] LABS: ALT 58 U/L (21-72); AST 34 U/L (17-59); Albumin 2.6 g/dL (3.5-5.0); Alkaline Phosphatase 96 U/L (38-126); Anion Gap 6 mmol/L; Blood Urea Nitrogen 18 mg/dL (9-20); Calcium 8.6 mg/dL (8.4-10.2); Carbon Dioxide 29 mmol/L (22-30); Chloride 101 mmol/L (98-107); Glucose 124 mg/dL (74-99); Potassium 3.6 mmol/L (3.5-5.1); Sodium 136 mmol/L (137-145); Total Bilirubin 0.7 mg/dL (0.2-1.3); Total Protein 5.7 g/dL (6.3-8.2)
[2018-06-13] MEDS ORDERED: VANCOMYCIN 2,000 MG in SODIUM CHLORIDE 0.9% 500 ML 500 ML IVPB SCH ×3 (12:00)
--- NOTE | 2018-06-13 22:42 | PN ---
PROGRESS NOTE DATE OF SERVICE: 06/13/2018 This 68-year-old gentleman admitted with CHF acute exacerbation with acute on chronic diastolic dysfunction. The patient also had strep bovis sepsis. Patient also abnormal CT findings intervention radiology is planning for aspiration on Friday. Multiple consultants are following the patient including Infectious Disease and surgery. The patient is on broad-spectrum IV antibiotics at this time. No chest pain. No palpitations. No fever. EXAM: Alert and oriented x3. Pulse is 60, blood pressure is 102/60. Respirations 12, temperature 98.3, pulse ox 98% on 3 L. HEENT is conjunctivae are normal. Neck is no jugular venous distention. Cardiovascular: S1, S2 muffled. Respiratory: Breath sounds diminished in the bases. A few scattered rhonchi and crackles. Abdomen is soft, nontender. No mass. Legs are no edema. No swelling. LAB STUDIES: WBC 8.2, hemoglobin 9.2. Sodium 136 and Vanco was 27.7. ASSESSMENT: 1. Congestive heart failure acute exacerbation with acute on chronic diastolic dysfunction, ejection fraction 50-55 percent. 2. Streptococcus bovis sepsis. 3. Abnormal CT scan findings showing a cystic lesion. 4. KENTON negative for endocarditis. 5. Hypertensive heart disease. 6. Alcohol induced cardiomyopathy. 7. Hypertension. 8. Tricuspid aortic valve. 9. Peripheral artery disease. 10.Degenerative joint disease. 11.History of coronary artery disease. 12.Hyperlipidemia. 13.Zhu's esophagus on chronic alcoholism. 14.Chronic diverticulosis. 15.Obesity, body mass index of 36.6. 16.History of coronary artery disease and aortic valve replacement. 17.Paroxysmal atrial fibrillation on Eliquis. 18.Troponin 0.398. 19.Possible acute non ST-segment elevation myocardial function, possibly a Type 2 myocardial infarction. RECOMMENDATIONS AND DISCUSSION: Recommend to continue current medications, continue with monitoring, symptomatic treatment. Otherwise, at this time, we will monitor the patient closely. Continue the current medications, continue the vancomycin. Interventional radiology evaluation. Closely follow with multiple consultants. Prognosis guarded because of multiple complex medical issues. Further recommendations to follow. MMODL / IJN: [id number] / MTDD
--- NOTE | 2018-06-14 00:59 | P.PN ---
Subjective Progress Note Date: 06/13/18 This is a 68-year-old male patient that gives history of falling 3-4 times at home. He states he may have some bruising but denies any significant injuries. Patient has difficulty getting off the floor after his falls and has been on the floor for extended periods. He complains of generalized weakness and malaise and shortness of breath. He normally uses a walker for ambulation. He denies fever, chills or rigors at home, no cough or sputum production. He denies dysuria, urinary retention or difficulty with urinary flow. No significant joint or muscle aches. Patient states he had similar symptoms around 2 months ago with multiple falls but does not recall if he sought treatment at bedtime. He also gives history that he normally drinks 9-10 beers per day but quit drinking 3 weeks ago. His family determined that he needed to come into the [facility] emergency center for evaluation. Patient was found to have a temperature of 100.5. White count was 18.5. El ectrolyte abnormalities included sodium 128, potassium 3.2, chloride 86, CO2 32, BUN was 38 and creatinine 1.06. AST 83, ALT 83, alkaline phosphatase 148. Ammonia level was 36. CK 177, proBNP 13,600, albumin 2.8, lipase normal. Troponin 0.447, 0.398, 0.366. Urinalysis was clear with nitrate and leukoesterase negative. Influenza testing negative. Alcohol less than 10. Blood culture was positive for strep species and thus this infectious disease consult was requested. A repeat blood culture was obtained last evening and is status received. A Tee catheter has been placed on this admission. Patient does have a bioprosthetic aortic valve. He is planning to go to subacute rehab at the time of discharge 06/10/2018 the patient is sitting upright and has had some of his dinner. Feel ing slightly better today. Not having high-grade fevers, chills or rigors. But does have generalized weakness. The transesophageal echocardiogram was performed that shows evidence of the bioprosthetic aortic valve that is intact with some valvular thickening but no evidence of endocarditis, no other valvular lesions were seen. Blood cultures now coming back positive with Streptococcus bovis. The family relates that he does have a history of gastrointestinal bleeding of approximately one year ago which point in time he did have upper and lower endoscopy. Apparently nonmalignant polyps were seen but no evidence of the site of bleeding was found. Patient is not having active bleeding at this time. 06/12/2018 patient is feeling somewhat better today. Is under the KENTON without evidence of endocarditis. Computed tomography scan of the abdomen and pelvis reveals evidence of a fluid collection in the lower pelvis that cannot be excluded as to an infection. At this time all blood cultures are positive for Streptococcus bovis. The patient fortunately is feeling slightly better. Jesika dueñas's questions are answered. 06/13/2018 patient is feeling better today. Appetite improved. Less short of breath. No other new acute complaints. Looking forward to his transition to the outpatient setting. He understands a PICC line and aspiration to the left lower abdominal mass are planned for Friday. Objective - Vital Signs Vital signs: Vital Signs Temp 97.8 F 06/13/18 20:24 Pulse 57 L 06/13/18 20:24 Resp 18 06/13/18 20:24 BP 122/68 06/13/18 20:24 Pulse Ox 94 L 06/13/18 20:35 Intake & Output 06/13/18 06/13/18 06/14/18 06:59 18:59 06:59 Intake Total 980 200 Balance 980 200 Weight 126.5 kg Intake: Intake, IV Titration 500 Amount Vancomycin 2,000 mg In 500 Sodium Chloride 0.9% 500 ml 500 ml @ 167 mls/hr IVPB Q12HR [facility] Rx#: [id number] Oral 480 200 Other: Voiding Method Urinal # Voids 3 2 1 - Exam Gen: This is a obese 68-year-old male. He is found sitting on the edge of the bed and appears to be comfortable and in no acute distress. No respiratory distress is noted. HEENT: Head is atraumatic, normocephalic. Pupils equal, round. Sclerae is anicteric. Conjunctiva pink. Mucous members of the mouth are moist. No oropharyngeal erythema or edema. Small abrasion to the left auricle. NECK: Supple. No JVD. No lymphadenopathy. No thyromegaly. LUNGS: Clear to auscultation. No wheezes or rhonchi. No intercostal retractions. HEART: Regular rate and rhythm. Systolic murmur. ABDOMEN: Soft. Bowel sounds are present. On the left lower abdominal wall at the lowest aspect of the pelvis is a small palpable area that is slightly fluctuant it is not tender has mild ecchymosis. No tenderness. Positive soft umbilical hernia. EXTREMITIES: 1+ pedal edema. No calf tenderness. NEUROLOGICAL: Patient is awake, alert and oriented x3 - Labs CBC & Chem 7: 06/13/18 10:53 06/13/18 10:53 Labs: Abnormal Lab Results - Last 24 Hours (Table) 06/13/18 06/13/18 Range/Units 10:53 10:53 RBC 3.05 L (4.30-5.90) m/uL Hgb 9.5 L (13.0-17.5) gm/dL Hct 29.6 L (39.0-53.0) % RDW 16.2 H (11.5-15.5) % Lymphocytes # 0.6 L (1.0-4.8) k/uL Sodium 136 L (137-145) mmol/L Glucose 124 H (74-99) mg/dL Total Protein 5.7 L (6.3-8.2) g/dL Albumin 2.6 L (3.5-5.0) g/dL Microbiology - Last 24 Hours (Table) 06/11/18 06:54 Blood Culture - Preliminary Blood No Growth after 48 hours 06/11/18 06:32 Blood Culture - Preliminary Blood No Growth after 48 hours 06/08/18 18:12 Blood Culture Gram Stain - Final Blood Blood Culture - Final Group D Not Enterococcus 06/08/18 19:43 Blood Culture Gram Stain - Final Blood Blood Culture - Final Group D Not Enterococcus Laboratory Results WBC 8.7 k/uL (3.8-10.6) 06/13/18 10:53 RBC 3.05 m/uL (4.30-5.90) L 06/13/18 10:53 Hgb 9.5 gm/dL (13.0-17.5) L 06/13/18 10:53 Hct 29.6 % (39.0-53.0) L 06/13/18 10:53 MCV 97.0 fL (80.0-100.0) 06/13/18 10:53 MCH 31.1 pg (25.0-35.0) 06/13/18 10:53 MCHC 32.0 g/dL (31.0-37.0) 06/13/18 10:53 RDW 16.2 % (11.5-15.5) H 06/13/18 10:53 Plt Count 203 k/uL (150-450) 06/13/18 10:53 Neutrophils % 82 % 06/13/18 10:53 Neutrophils % (Manual) 84 % 06/07/18 11:34 Lymphocytes % 7 % 06/13/18 10:53 Lymphocytes % (Manual) 7 % 06/07/18 11:34 Monocytes % 7 % 06/13/18 10:53 Monocytes % (Manual) 9 % 06/07/18 11:34 Eosinophils % 2 % 06/13/18 10:53 Basophils % 1 % 06/13/18 10:53 Neutrophils # 7.2 k/uL (1.3-7.7) 06/13/18 10:53 Neutrophils # (Manual) 15.54 k/uL (1.3-7.7) H 06/07/18 11:34 Lymphocytes # 0.6 k/uL (1.0-4.8) L 06/13/18 10:53 Lymphocytes # (Manual) 1.30 k/uL (1.0-4.8) 06/07/18 11:34 Monocytes # 0.6 k/uL (0-1.0) 06/13/18 10:53 Monocytes # (Manual) 1.67 k/uL (0-1.0) H 06/07/18 11:34 Eosinophils # 0.1 k/uL (0-0.7) 06/13/18 10:53 Basophils # 0.0 k/uL (0-0.2) 06/13/18 10:53 Nucleated RBCs 0 /100 WBC (0-0) 06/07/18 11:34 Manual Slide Review Performed 06/07/18 11:34 Poikilocytosis (manual Present 06/07/18 11:34 Anisocytosis Slight 06/13/18 10:53 Crenated Cell Present 06/07/18 11:34 PT 13.3 sec (9.0-12.0) H 06/07/18 12:32 INR 1.3 (<1.2) H 06/07/18 12:32 APTT 33.9 sec (22.0-30.0) H 06/07/18 19:11 VBG pH 7.68 (7.31-7.41) H* 06/07/18 11:34 VBG pCO2 26 mmHg (37-51) L 06/07/18 11:34 VBG HCO3 32 mmol/L (24-28) H 06/07/18 11:34 Sodium 136 mmol/L (137-145) L 06/13/18 10:53 Potassium 3.6 mmol/L (3.5-5.1) 06/13/18 10:53 Chloride 101 mmol/L (98-107) 06/13/18 10:53 Carbon Dioxide 29 mmol/L (22-30) 06/13/18 10:53 Anion Gap 6 mmol/L 06/13/18 10:53 BUN 18 mg/dL (9-20) 06/13/18 10:53 Creatinine 0.97 mg/dL (0.66-1.25) 06/13/18 10:53 Est GFR (CKD-EPI)AfAm >90 (>60 ml/min/1.73 sqM) 06/13/18 10:53 Est GFR (CKD-EPI)NonAf 79 (>60 ml/min/1.73 sqM) 06/13/18 10:53 Glucose 124 mg/dL (74-99) H 06/13/18 10:53 POC Glucose (mg/dL) 142 mg/dL (75-99) H 06/08/18 00:48 POC Glu [employer] ID Karon Dumont 06/08/18 00:48 Lactic Ac Sepsis Rflx Y 06/07/18 12:24 Plasma Lactic Acid Faizan 1.1 mmol/L (0.7-2.0) 06/07/18 16:05 Calcium 8.6 mg/dL (8.4-10.2) 06/13/18 10:53 Magnesium 1.8 mg/dL (1.6-2.3) 06/07/18 11:34 Total Bilirubin 0.7 mg/dL (0.2-1.3) 06/13/18 10:53 Conjugated Bilirubin 0.0 mg/dL (0.0-0.3) 06/07/18 11:34 Unconjugated Bilirubin 1.0 mg/dL (0.0-1.1) 06/07/18 11:34 Delta Bilirubin 0.3 mg/dL (0.0-0.2) H 06/07/18 11:34 AST 34 U/L (17-59) 06/13/18 10:53 ALT 58 U/L (21-72) 06/13/18 10:53 Alkaline Phosphatase 96 U/L (38-126) 06/13/18 10:53 Ammonia 36 umol/L (<30) H 06/07/18 11:34 Creatine Kinase 177 U/L (55-170) H 06/07/18 11:34 Troponin I 0.366 ng/mL (0.000-0.034) H* 06/07/18 22:22 NT-Pro-B Natriuret Pep 02650 pg/mL 06/08/18 06:40 Total Protein 5.7 g/dL (6.3-8.2) L 06/13/18 10:53 Albumin 2.6 g/dL (3.5-5.0) L 06/13/18 10:53 Triglycerides 70 mg/dL (<150) 06/08/18 06:40 Cholesterol 104 mg/dL (<200) 06/08/18 06:40 LDL Cholesterol, Calc 68 mg/dL (0-99) 06/08/18 06:40 HDL Cholesterol 22 mg/dL (40-60) L 06/08/18 06:40 Lipase 89 U/L (23-300) 06/07/18 11:34 Urine Color Yellow 06/07/18 19:00 Urine Appearance Clear (Clear) 06/07/18 19:00 Urine pH 7.0 (5.0-8.0) 06/07/18 19:00 Ur Specific [place] 1.010 (1.001-1.035) 06/07/18 19:00 Urine Protein Negative (Negative) 06/07/18 19:00 Urine Glucose (UA) Negative (Negative) 06/07/18 19:00 Urine Ketones Negative (Negative) 06/07/18 19:00 Urine Blood Negative (Negative) 06/07/18 19:00 Urine Nitrite Negative (Negative) 06/07/18 19:00 Urine Bilirubin Negative (Negative) 06/07/18 19:00 Urine Urobilinogen 2.0 mg/dL (<2.0) 06/07/18 19:00 Ur Leukocyte Esterase Negative (Negative) 06/07/18 19:00 Vancomycin Trough 27.7 ug/mL 06/13/18 10:53 Serum Alcohol <10 mg/dL 06/07/18 11:34 Influenza Type A RNA Not Detected (Not Detectd) 06/07/18 11:34 Influenza Type B (PCR) Not Detected (Not Detectd) 06/07/18 11:34 Microbiology 06/11/18 06:54 Blood Blood Culture - Preliminary No Growth after 48 hours 06/11/18 06:32 Blood Blood Culture - Preliminary No Growth after 48 hours 06/08/18 18:12 Blood Blood Culture Gram Stain - Final 06/08/18 18:12 Blood Blood Culture - Final Group D Not Enterococcus 06/08/18 19:43 Blood Blood Culture Gram Stain - Final 06/08/18 19:43 Blood Blood Culture - Final Group D Not Enterococcus 06/07/18 12:32 Blood Blood Culture Gram Stain - Final 06/07/18 12:32 Blood Blood Culture - Final Streptococcus bovis 06/08/18 18:12 Blood Blood Culture - Final 06/08/18 19:43 Blood Blood Culture - Final 06/07/18 12:32 Blood Blood Culture - Final Assessment and Plan (1) Weakness Current Visit: Yes Status: Acute Code(s): R53.1 - WEAKNESS SNOMED Code(s): 38944479 (2) Multiple falls Current Visit: Yes Status: Acute Code(s): R29.6 - REPEATED FALLS SNOMED Code(s): 854886573 (3) Streptococcus bovis infection Narrative/Plan: this 68-year-old male does have a approximate three-week history of a significant change of his functional status. The patient started to feel weak and started to have some falls at that point in time. He was not feeling well. Because of the change of his status he stopped drinking his alcohol which is between 9 and 10 beers a day. The family was present does verify this.is noted he is now had multiple falls has had an event of epistaxis after a fall and injury to his left ear. By the time he presents he has evidence of leukocytosis and workup has progressed and now there is evidence of a positive blood culture. And because of his bioprosthetic aortic valve the infectious disease consultation was requested. Laboratories contact and there is evidence of the Streptococcus growing from both blood cultures that were drawn at admission. Follow blood cultures are reported been requested and are in process. while cultures are process antibiotic therapy with vancomycin is being utilized. Cardiology was contacted and we requested KENTON be performed given the bioprosthetic valve in the positive blood cultures. There is concern that the patient has a subacute prosthetic valve endocarditis resulting in his multiweek course of declining status. the patient's family is informed of the concerns and the importance of evaluation and treatment.as noted on the exam the patient has multiple areas of ecchymosis and skin abrasions, has multiple portals of entry for the streptococcal bacteremia 06/10/2018 the patient is now had the KENTON performed without evidence of endocarditis. The blood cultures are now coming back as positive for Streptococcus bovis. This has a strong link to gastrointestinal source of the bacteremia. Given his history of alcoholism and prior history of gastrointestinal bleed of undetermined course there is concerned intra-abdominal pathology for his current infection. He likely has had a subacute infection with bacteremia occurring through this timeframe. He has noted likely is the etiology of his weakness and declining status. Computed tomography scan of the abdomen and pelvis with oral and IV contrast have been requested to further evaluate. He may need further evaluation with gastroenterology, has been seen by Dr. Willis in the past. Follow blood cultures will be requested as of tomorrow. Once his clearance of bacteremia plans for outpatient intravenous antibiotic therapy will be made. 06/11/2018 the patient is feeling better. Responding well to antibiotic therapy. As noted no evidence of endocarditis. However continues to have evidence of positive blood cultures. Antibiotic therapy continues and he seems to be clinically improving. Follow blood cultures are requested to ensure the clearance of his bacteremia. We'll ask radiology if they can aspirate this area on the left lower quadrant determine if it is an abscess. 06/12/2018 patient is feeding further improvement. Appetite improved. Energy level is improved. Fevers improved. There is no evidence of 24 hours of negative blood culture from the Streptococcus bovis. If in the next year. Time there is evidence of negative blood cultures then intravenous access can be requested and utilize in the outpatient setting. Currently planning ceftriaxone in the home setting the time of his discharge. 06/13/2018 patient is definitely feeling better. The multiple blood cultures with Streptococcus bovis, group D strep not enterococcus are noted and there are now blood cultures negative at 48 hours. PICC line has been requested. Interventional radiology is also planning on the aspiration of the left lower abdominal mass. Concern is this is the source of the current infection and bacteremia. Fortunately patient is having marked improvement and will likely transition to rehabilitation after his interventions on Friday. Current Visit: Yes Status: Acute Code(s): A49.1 - STREPTOCOCCAL INFECTION, UNSPECIFIED SITE SNOMED Code(s): 84689407
[2018-06-14] MEDS ORDERED: VANCOMYCIN TROUGH DUE 1 EACH MISC MISCELLANE ONE (05:00)
[2018-06-14] MEDS: VANCOMYCIN 2,000 MG in SODIUM CHLORIDE 0.9% 500 ML 500 ML IVPB SCH (06:52)
[2018-06-14 08:05] LABS: Anisocytosis Slight; Basophils % (A) 1 %; Eosinophils # (A) 0.2 k/uL (0-0.7); Eosinophils % (A) 2 %; HCT 29.3 % (39.0-53.0); HGB 9.5 gm/dL (13.0-17.5); Lymphocytes # (A) 0.7 k/uL (1.0-4.8); Lymphocytes % (A) 9 %; MCH 31.4 pg (25.0-35.0); MCHC 32.4 g/dL (31.0-37.0); Macrocytosis Slight; Mean Platelet Volume 7.5; Monocytes # (A) 0.5 k/uL (0-1.0); Monocytes % (A) 6 %; Neutrophils # (A) 6.2 k/uL (1.3-7.7); Neutrophils % (A) 78 %; Platelet Count 203 k/uL (150-450); RBC 3.02 m/uL (4.30-5.90); RDW 16.7 % (11.5-15.5); WBC 7.9 k/uL (3.8-10.6)
[2018-06-14 08:06] LABS: Prothrombin Time 10.7 sec (9.0-12.0)
[2018-06-14 08:22] LABS: Albumin 2.7 g/dL (3.5-5.0); Calcium 8.5 mg/dL (8.4-10.2); Potassium 3.7 mmol/L (3.5-5.1); Total Bilirubin 0.8 mg/dL (0.2-1.3)
[2018-06-14] MEDS: SPIRONOLACTONE 25 MG TAB PO SCH (09:59)
[2018-06-14] MEDS: GABAPENTIN 100 MG CAP PO SCH ×3 (09:59→21:39)
[2018-06-14] MEDS: METOPROLOL TARTRATE 25 MG TAB PO SCH ×2 (09:59→21:38)
[2018-06-14] MEDS: FAMOTIDINE 20 MG TAB PO SCH ×2 (09:59→21:39)
[2018-06-14] MEDS: FUROSEMIDE 40 MG TAB PO SCH (09:59)
[2018-06-14] MEDS: ISOSORBIDE MONONITRATE ER 15 MG TAB PO SCH (10:00)
[2018-06-14] MEDS: AMIODARONE 200 MG TAB PO SCH (10:00)
[2018-06-14] MEDS: MULTIVITAMINS, THERA 1 EACH TAB PO SCH (10:00)
--- NOTE | 2018-06-14 11:20 | P.PN ---
Progress Note - Text Progress Note Date: 06/14/18 The patient's resting comfortably in his bed. He has minimal complaints of abdominal pain. On exam his vital signs are stable. His umbilical hernia is stable. We will plan for outpatient repair of his umbilical hernia once he is medically stable.
--- NOTE | 2018-06-14 23:07 | PN ---
PROGRESS NOTE DATE OF SERVICE: 06/14/2018. INTERIM HISTORY: This 68-year-old gentleman who was admitted with CHF acute exacerbation also had Streptococcus bovis infection. Patient also a cystic lesion on the CT scan of the abdomen which was to be tapped by Interventricular Radiology tomorrow. No chest pain. No palpitations. No fever. EXAM: Alert, oriented x3. Pulse 61, blood pressure 149/70, respirations 16, temperature 97.2, pulse ox 94% on room air. HEENT: Conjunctivae normal. Oral mucosa moist. NECK: No JVD. CARDIOVASCULAR: S1 and S2 muffled. LUNGS: Breath sounds diminished in the bases. ABDOMEN: Soft, obese. EXTREMITIES: Legs no edema or swelling. LABS: WBC 5.9, hemoglobin 9.5, sodium 136. ASSESSMENT: 1. Congestive heart failure acute exacerbation with acute on chronic diastolic dysfunction, ejection fraction 50% to 55%. 2. Streptococcus bovis sepsis. 3. Abnormal CT scan findings showing cystic lesion in the pelvis. 4. KENTON negative for endocarditis. 5. Hypertensive heart disease. 6. Alcohol induced myopathy. 7. Hypertension. 8. Peripheral artery disease. 9. DJD. 10.History of coronary artery disease. 11.Hyperlipidemia. 12.Bicuspid aortic valve. 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 14.Chronic diverticulosis. 15.Obesity, body mass index of 36.6. 16.History of CAD. 17.Aortic valve replacement. 18.Paroxysmal atrial fibrillation, on Eliquis. 19.Troponin 0.0398. Possible acute non ST elevation myocardial infarction, possibly type 2 microinfarction. RECOMMENDATIONS: Recommend to continue current management and symptomatic treatment. Continue with the current medication with antibiotics. Otherwise Intervention Radiology evaluation, possible abdominal paracentesis. Guarded prognosis. Further recommendations to follow. MMODL / IJN: [id number] /
--- NOTE | 2018-06-14 23:33 | P.PN ---
Subjective Progress Note Date: 06/14/18 This is a 68-year-old male patient that gives history of falling 3-4 times at home. He states he may have some bruising but denies any significant injuries. Patient has difficulty getting off the floor after his falls and has been on the floor for extended periods. He complains of generalized weakness and malaise and shortness of breath. He normally uses a walker for ambulation. He denies fever, chills or rigors at home, no cough or sputum production. He denies dysuria, urinary retention or difficulty with urinary flow. No significant joint or muscle aches. Patient states he had similar symptoms around 2 months ago with multiple falls but does not recall if he sought treatment at bedtime. He also gives history that he normally drinks 9-10 beers per day but quit drinking 3 weeks ago. His family determined that he needed to come into the [facility] emergency center for evaluation. Patient was found to have a temperature of 100.5. White count was 18.5. El ectrolyte abnormalities included sodium 128, potassium 3.2, chloride 86, CO2 32, BUN was 38 and creatinine 1.06. AST 83, ALT 83, alkaline phosphatase 148. Ammonia level was 36. CK 177, proBNP 13,600, albumin 2.8, lipase normal. Troponin 0.447, 0.398, 0.366. Urinalysis was clear with nitrate and leukoesterase negative. Influenza testing negative. Alcohol less than 10. Blood culture was positive for strep species and thus this infectious disease consult was requested. A repeat blood culture was obtained last evening and is status received. A Tee catheter has been placed on this admission. Patient does have a bioprosthetic aortic valve. He is planning to go to subacute rehab at the time of discharge 06/10/2018 the patient is sitting upright and has had some of his dinner. Feel ing slightly better today. Not having high-grade fevers, chills or rigors. But does have generalized weakness. The transesophageal echocardiogram was performed that shows evidence of the bioprosthetic aortic valve that is intact with some valvular thickening but no evidence of endocarditis, no other valvular lesions were seen. Blood cultures now coming back positive with Streptococcus bovis. The family relates that he does have a history of gastrointestinal bleeding of approximately one year ago which point in time he did have upper and lower endoscopy. Apparently nonmalignant polyps were seen but no evidence of the site of bleeding was found. Patient is not having active bleeding at this time. 06/12/2018 patient is feeling somewhat better today. Is under the KENTON without evidence of endocarditis. Computed tomography scan of the abdomen and pelvis reveals evidence of a fluid collection in the lower pelvis that cannot be excluded as to an infection. At this time all blood cultures are positive for Streptococcus bovis. The patient fortunately is feeling slightly better. Jesika dueñas's questions are answered. 06/13/2018 patient is feeling better today. Appetite improved. Less short of breath. No other new acute complaints. Looking forward to his transition to the outpatient setting. He understands a PICC line and aspiration to the left lower abdominal mass are planned for Friday. 05/15/2018 patient feeling better, less short of breath resting well with any acute difficulties. Looks forward to IV access, biopsy and transition to rehab. Objective - Vital Signs Vital signs: Vital Signs Temp 97.9 F 06/14/18 15:00 Pulse 61 06/14/18 15:00 Resp 15 06/14/18 15:00 BP 149/73 06/14/18 15:00 Pulse Ox 95 06/14/18 15:00 Intake & Output 06/14/18 06/14/18 06/15/18 06:59 18:59 06:59 Intake Total 1520 Balance 1520 Weight 124.8 kg Intake: Intake, IV Titration 500 Amount Vancomycin 2,000 mg In 500 Sodium Chloride 0.9% 500 ml 500 ml @ 167 mls/hr IVPB Q24H CARLOS Rx#: [id number] Oral 1020 Other: # Voids 1 1 - Exam Gen: This is a obese 68-year-old male. Resting well no respiratory distress HEENT: Head is atraumatic, normocephalic. Pupils equal, round. Sclerae is anicteric. Conjunctiva pink. Mucous members of the mouth are moist. No oropharyngeal erythema or edema. Small abrasion to the left auricle. NECK: Supple. No JVD. No lymphadenopathy. No thyromegaly. LUNGS: Clear to auscultation. No wheezes or rhonchi. No intercostal retractions. HEART: Regular rate and rhythm. Systolic murmur. ABDOMEN: Soft. Bowel sounds are present. On the left lower abdominal wall at the lowest aspect of the pelvis is a small palpable area that is slightly fluctuant it is not tender has mild ecchymosis. No tenderness. Positive soft umbilical hernia. EXTREMITIES: 1+ pedal edema. No calf tenderness. NEUROLOGICAL: Patient is arousable without focal deficit - Labs CBC & Chem 7: 06/14/18 06:40 06/14/18 06:40 Labs: Abnormal Lab Results - Last 24 Hours (Table) 06/14/18 06/14/18 Range/Units 06:40 06:40 RBC 3.02 L (4.30-5.90) m/uL Hgb 9.5 L (13.0-17.5) gm/dL Hct 29.3 L (39.0-53.0) % RDW 16.7 H (11.5-15.5) % Lymphocytes # 0.7 L (1.0-4.8) k/uL Sodium 136 L (137-145) mmol/L Total Protein 6.0 L (6.3-8.2) g/dL Albumin 2.7 L (3.5-5.0) g/dL Microbiology - Last 24 Hours (Table) 06/11/18 06:54 Blood Culture - Preliminary Blood No Growth after 72 hours 06/11/18 06:32 Blood Culture - Preliminary Blood No Growth after 72 hours Laboratory Results WBC 7.9 k/uL (3.8-10.6) 06/14/18 06:40 RBC 3.02 m/uL (4.30-5.90) L 06/14/18 06:40 Hgb 9.5 gm/dL (13.0-17.5) L 06/14/18 06:40 Hct 29.3 % (39.0-53.0) L 06/14/18 06:40 MCV 97.0 fL (80.0-100.0) 06/14/18 06:40 MCH 31.4 pg (25.0-35.0) 06/14/18 06:40 MCHC 32.4 g/dL (31.0-37.0) 06/14/18 06:40 RDW 16.7 % (11.5-15.5) H 06/14/18 06:40 Plt Count 203 k/uL (150-450) 06/14/18 06:40 Neutrophils % 78 % 06/14/18 06:40 Neutrophils % (Manual) 84 % 06/07/18 11:34 Lymphocytes % 9 % 06/14/18 06:40 Lymphocytes % (Manual) 7 % 06/07/18 11:34 Monocytes % 6 % 06/14/18 06:40 Monocytes % (Manual) 9 % 06/07/18 11:34 Eosinophils % 2 % 06/14/18 06:40 Basophils % 1 % 06/14/18 06:40 Neutrophils # 6.2 k/uL (1.3-7.7) 06/14/18 06:40 Neutrophils # (Manual) 15.54 k/uL (1.3-7.7) H 06/07/18 11:34 Lymphocytes # 0.7 k/uL (1.0-4.8) L 06/14/18 06:40 Lymphocytes # (Manual) 1.30 k/uL (1.0-4.8) 06/07/18 11:34 Monocytes # 0.5 k/uL (0-1.0) 06/14/18 06:40 Monocytes # (Manual) 1.67 k/uL (0-1.0) H 06/07/18 11:34 Eosinophils # 0.2 k/uL (0-0.7) 06/14/18 06:40 Basophils # 0.0 k/uL (0-0.2) 06/14/18 06:40 Nucleated RBCs 0 /100 WBC (0-0) 06/07/18 11:34 Manual Slide Review Performed 06/07/18 11:34 Poikilocytosis (manual Present 06/07/18 11:34 Anisocytosis Slight 06/14/18 06:40 Macrocytosis Slight 06/14/18 06:40 Crenated Cell Present 06/07/18 11:34 PT 10.7 sec (9.0-12.0) 06/14/18 06:40 INR 1.0 (<1.2) 06/14/18 06:40 APTT 33.9 sec (22.0-30.0) H 06/07/18 19:11 VBG pH 7.68 (7.31-7.41) H* 06/07/18 11:34 VBG pCO2 26 mmHg (37-51) L 06/07/18 11:34 VBG HCO3 32 mmol/L (24-28) H 06/07/18 11:34 Sodium 136 mmol/L (137-145) L 06/14/18 06:40 Potassium 3.7 mmol/L (3.5-5.1) 06/14/18 06:40 Chloride 101 mmol/L (98-107) 06/14/18 06:40 Carbon Dioxide 29 mmol/L (22-30) 06/14/18 06:40 Anion Gap 6 mmol/L 06/14/18 06:40 BUN 18 mg/dL (9-20) 06/14/18 06:40 Creatinine 1.22 mg/dL (0.66-1.25) 06/14/18 06:40 Est GFR (CKD-EPI)AfAm 69 (>60 ml/min/1.73 sqM) 06/14/18 06:40 Est GFR (CKD-EPI)NonAf 60 (>60 ml/min/1.73 sqM) 06/14/18 06:40 Glucose 86 mg/dL (74-99) 06/14/18 06:40 POC Glucose (mg/dL) 142 mg/dL (75-99) H 06/08/18 00:48 POC Glu Fruit [employer] Machine 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 Karon Dumont 06/08/18 00:48 Lactic Ac Sepsis Rflx Y 06/07/18 12:24 Plasma Lactic Acid Faizan 1.1 mmol/L (0.7-2.0) 06/07/18 16:05 Calcium 8.5 mg/dL (8.4-10.2) 06/14/18 06:40 Magnesium 1.8 mg/dL (1.6-2.3) 06/07/18 11:34 Total Bilirubin 0.8 mg/dL (0.2-1.3) 06/14/18 06:40 Conjugated Bilirubin 0.0 mg/dL (0.0-0.3) 06/07/18 11:34 Unconjugated Bilirubin 1.0 mg/dL (0.0-1.1) 06/07/18 11:34 Delta Bilirubin 0.3 mg/dL (0.0-0.2) H 06/07/18 11:34 AST 35 U/L (17-59) 06/14/18 06:40 ALT 56 U/L (21-72) 06/14/18 06:40 Alkaline Phosphatase 106 U/L (38-126) 06/14/18 06:40 Ammonia 36 umol/L (<30) H 06/07/18 11:34 Creatine Kinase 177 U/L (55-170) H 06/07/18 11:34 Troponin I 0.366 ng/mL (0.000-0.034) H* 06/07/18 22:22 NT-Pro-B Natriuret Pep 22980 pg/mL 06/08/18 06:40 Total Protein 6.0 g/dL (6.3-8.2) L 06/14/18 06:40 Albumin 2.7 g/dL (3.5-5.0) L 06/14/18 06:40 Triglycerides 70 mg/dL (<150) 06/08/18 06:40 Cholesterol 104 mg/dL (<200) 06/08/18 06:40 LDL Cholesterol, Calc 68 mg/dL (0-99) 06/08/18 06:40 HDL Cholesterol 22 mg/dL (40-60) L 06/08/18 06:40 Lipase 89 U/L (23-300) 06/07/18 11:34 Urine Color Yellow 06/07/18 19:00 Urine Appearance Clear (Clear) 06/07/18 19:00 Urine pH 7.0 (5.0-8.0) 06/07/18 19:00 Ur Specific [place] 1.010 (1.001-1.035) 06/07/18 19:00 Urine Protein Negative (Negative) 06/07/18 19:00 Urine Glucose (UA) Negative (Negative) 06/07/18 19:00 Urine Ketones Negative (Negative) 06/07/18 19:00 Urine Blood Negative (Negative) 06/07/18 19:00 Urine Nitrite Negative (Negative) 06/07/18 19:00 Urine Bilirubin Negative (Negative) 06/07/18 19:00 Urine Urobilinogen 2.0 mg/dL (<2.0) 06/07/18 19:00 Ur Leukocyte Esterase Negative (Negative) 06/07/18 19:00 Vancomycin Trough 16.7 ug/mL 06/14/18 06:40 Serum Alcohol <10 mg/dL 06/07/18 11:34 Influenza Type A RNA Not Detected (Not Detectd) 06/07/18 11:34 Influenza Type B (PCR) Not Detected (Not Detectd) 06/07/18 11:34 Microbiology 06/11/18 06:54 Blood Blood Culture - Preliminary No Growth after 72 hours 06/11/18 06:32 Blood Blood Culture - Preliminary No Growth after 72 hours 06/08/18 18:12 Blood Blood Culture Gram Stain - Final 06/08/18 18:12 Blood Blood Culture - Final Group D Not Enterococcus 06/08/18 19:43 Blood Blood Culture Gram Stain - Final 06/08/18 19:43 Blood Blood Culture - Final Group D Not Enterococcus 06/07/18 12:32 Blood Blood Culture Gram Stain - Final 06/07/18 12:32 Blood Blood Culture - Final Streptococcus bovis 06/08/18 18:12 Blood Blood Culture - Final 06/08/18 19:43 Blood Blood Culture - Final 06/07/18 12:32 Blood Blood Culture - Final Assessment and Plan (1) Weakness Current Visit: Yes Status: Acute Code(s): R53.1 - WEAKNESS SNOMED Code(s): 41417781 (2) Multiple falls Current Visit: Yes Status: Acute Code(s): R29.6 - REPEATED FALLS SNOMED Code(s): 919664339 (3) Streptococcus bovis infection Narrative/Plan: this 68-year-old male does have a approximate three-week history of a significant change of his functional status. The patient started to feel weak and started to have some falls at that point in time. He was not feeling well. Because of the change of his status he stopped drinking his alcohol which is between 9 and 10 beers a day. The family was present does verify this.is noted he is now had multiple falls has had an event of epistaxis after a fall and injury to his left ear. By the time he presents he has evidence of leukocytosis and workup has pr ogressed and now there is evidence of a positive blood culture. And because of his bioprosthetic aortic valve the infectious disease consultation was requested. Laboratories contact and there is evidence of the Streptococcus growing from both blood cultures that were drawn at admission. Follow blood cultures are reported been requested and are in process. while cultures are process antibiotic therapy with vancomycin is being utilized. Cardiology was contacted and we requested KENTON be performed given the bioprosthetic valve in the positive blood cultures. There is concern that the patient has a subacute prosthetic valve endocarditis resulting in his multiweek course of declining status. the patient's family is informed of the concerns and the importance of evaluation and treatment.as noted on the exam the patient has multiple areas of ecchymosis and skin abrasions, has multiple portals of entry for the streptococcal bacteremia 06/10/2018 the patient is now had the KENTON performed without evidence of endocarditis. The blood cultures are now coming back as positive for Streptococcus bovis. This has a strong link to gastrointestinal source of the bacteremia. Given his history of alcoholism and prior history of gastrointestinal bleed of undetermined course there is concerned intra-abdominal pathology for his current infection. He likely has had a subacute infection with bacteremia occurring through this timeframe. He has noted likely is the etiology of his weakness and declining status. Computed tomography scan of the abdomen and pelvis with oral and IV contrast have been requested to further evaluate. He may need further evaluation with gastroenterology, has been seen by Dr. Willis in the past. Follow blood cultures will be requested as of tomorrow. Once his clearance of bacteremia plans for outpatient intravenous antibiotic therapy will be made. 06/11/2018 the patient is feeling better. Responding well to antibiotic therapy. As noted no evidence of endocarditis. However continues to have evidence of positive blood cultures. Antibiotic therapy continues and he seems to be clinically improving. Follow blood cultures are requested to ensure the clearance of his bacteremia. We'll ask radiology if they can aspirate this area on the left lower quadrant determine if it is an abscess. 06/12/2018 patient is feeding further improvement. Appetite improved. Energy level is improved. Fevers improved. There is no evidence of 24 hours of negative blood culture from the Streptococcus bovis. If in the next year. Time there is evidence of negative blood cultures then intravenous access can be requested and utilize in the outpatient setting. Currently planning ceftriaxone in the home setting the time of his discharge. 06/13/2018 patient is definitely feeling better. The multiple blood cultures with Streptococcus bovis, group D strep not enterococcus are noted and there are now blood cultures negative at 48 hours. PICC line has been requested. Interventional radiology is also planning on the aspiration of the left lower abdominal mass. Concern is this is the source of the current infection and bacteremia. Fortunately patient is having marked improvement and will likely transition to rehabilitation after his interventions on Friday. 06/14/2018 patient is continue to feel better. Blood cultures are clearing with the Streptococcus bovis/group D strep not enterococcus. Tolerated antibiotic therapy will with Rocephin. With negative blood cultures a PICC line placed tomorrow in radiology will biopsy the mass lesion in the left lower quadrant as a potential source of the current sepsis. No evidence of endocarditis. Working on transition to the outpatient setting after the procedures tomorrow. Current Visit: Yes Status: Acute Code(s): A49.1 - STREPTOCOCCAL INFECTION, UNSPECIFIED SITE SNOMED Code(s): 40912466
[2018-06-15] MEDS: VANCOMYCIN 2,000 MG in SODIUM CHLORIDE 0.9% 500 ML 500 ML IVPB SCH (05:19)
[2018-06-15] MEDS: AMIODARONE 200 MG TAB PO SCH (08:19)
[2018-06-15] MEDS: ISOSORBIDE MONONITRATE ER 15 MG TAB PO SCH (08:19)
[2018-06-15] MEDS: GABAPENTIN 100 MG CAP PO SCH (08:19)
[2018-06-15] MEDS: SPIRONOLACTONE 25 MG TAB PO SCH (08:19)
[2018-06-15] MEDS: FUROSEMIDE 40 MG TAB PO SCH (08:19)
[2018-06-15] MEDS: METOPROLOL TARTRATE 25 MG TAB PO SCH (08:19)
[2018-06-15] MEDS: FAMOTIDINE 20 MG TAB PO SCH (08:19)
[2018-06-15] MEDS ORDERED: LIDOCAINE 1% INJ 10MG/ML (20 ML MDV) ONE (08:49)
[2018-06-15] MEDS ORDERED: LIDOCAINE 1% INJ 10MG/ML (20 ML MDV) SQ ONE (09:02)
[2018-06-15 10:31] LABS: Albumin 2.9 g/dL (3.5-5.0); Calcium 8.8 mg/dL (8.4-10.2); Total Bilirubin 0.8 mg/dL (0.2-1.3); Total Protein 6.3 g/dL (6.3-8.2)
[2018-06-15 10:46] LABS: Anisocytosis Slight; Basophils % (A) 1 %; Eosinophils # (A) 0.1 k/uL (0-0.7); Eosinophils % (A) 2 %; HCT 30.5 % (39.0-53.0); HGB 10.1 gm/dL (13.0-17.5); Lymphocytes # (A) 0.7 k/uL (1.0-4.8); Lymphocytes % (A) 9 %; MCH 31.4 pg (25.0-35.0); Mean Platelet Volume 8.3; Monocytes # (A) 0.6 k/uL (0-1.0); Monocytes % (A) 8 %; Neutrophils # (A) 6.5 k/uL (1.3-7.7); Neutrophils % (A) 79 %; Platelet Count 160 k/uL (150-450); RBC 3.21 m/uL (4.30-5.90); RDW 16.2 % (11.5-15.5); WBC 8.2 k/uL (3.8-10.6)
--- NOTE | 2018-06-15 12:09 | P.PN ---
Subjective Progress Note Date: 06/15/18 CHIEF COMPLAINT: abnormal CT scan HISTORY OF PRESENT ILLNESS: Patient examined at the bedside. Patient denies abdominal pain. Denies nausea or vomiting. WBC 8.2. Hemoglobin 10.1. Vital signs stable. PHYSICAL EXAM: VITAL SIGNS: Reviewed. GENERAL: Well-developed in no acute distress. HEENT: No sclera icterus. Extraocular movements grossly intact. Moist buccal mucosa. Head is atraumatic, normocephalic. ABDOMEN: Soft. Nondistended. Hernia present. Nontender. NEUROLOGIC: Alert and oriented. Cranial nerves II through XII grossly intact ASSESSMENT: 1. Moderate sized periumbilical hernia 2. Left anterior pelvis cystic structure, no evidence of abscess per CT PLAN: No inpatient surgical intervention. Patient may follow up with Dr. Hernandez outpatient regarding hernia. We will sign off. Please reconsult if needed. Nurse practitioner note has been reviewed by physician. Signing provider agrees with the documented findings, assessment, and plan of care. Objective - Vital Signs Vital signs: Vital Signs Temp 98.1 F 06/15/18 11:21 Pulse 54 L 06/15/18 11:45 Resp 16 06/15/18 11:45 BP 147/64 06/15/18 11:45 Pulse Ox 97 06/15/18 11:45 Intake & Output 06/14/18 06/15/18 06/15/18 18:59 06:59 18:59 Intake Total 1520 Balance 1520 Intake: Intake, IV Titration 500 Amount Vancomycin 2,000 mg In 500 Sodium Chloride 0.9% 500 ml 500 ml @ 167 mls/hr IVPB Q24H CARLOS Rx#: [id number] Oral 1020 Other: # Voids 1 1 - Labs CBC & Chem 7: 06/15/18 07:17 06/15/18 07:17 Labs: Abnormal Lab Results - Last 24 Hours (Table) 06/15/18 06/15/18 Range/Units 07:17 07:17 RBC 3.21 L (4.30-5.90) m/uL Hgb 10.1 L (13.0-17.5) gm/dL Hct 30.5 L (39.0-53.0) % RDW 16.2 H (11.5-15.5) % Lymphocytes # 0.7 L (1.0-4.8) k/uL BUN 21 H (9-20) mg/dL Creatinine 1.28 H (0.66-1.25) mg/dL Albumin 2.9 L (3.5-5.0) g/dL Microbiology - Last 24 Hours (Table) 06/11/18 06:54 Blood Culture - Preliminary Blood No Growth after 96 hours 06/11/18 06:32 Blood Culture - Preliminary Blood No Growth after 96 hours
[2018-06-15] MEDS: MULTIVITAMINS, THERA 1 EACH TAB PO SCH (12:14)
--- NOTE | 2018-06-15 12:49 | US ---
ULTRASOUND GUIDED FNA SUBCUTANEOUS LEFT PELVIC COLLECTION BIOPSY: CLINICAL HISTORY: Request for needle aspiration of left pelvic subcutaneous nodule FINDINGS: The procedure was explained to the patient. The risks, complications, benefits and alternatives were discussed and any questions were answered. Informed consent was obtained. Patient was placed supin e on the ultrasound table and prepped and draped in the usual sterile fashion. Utilizing a 18 gauge needle, samples obtained of thick fluid material. Patient was stable throughout the procedure. Pathology is pending. All elements of maximal barrier technique were utilized. IMPRESSION: 1. Successful ultrasound guided FNA of the requested subcutaneous left pelvic lesion.
[2018-06-15 15:42] VITALS: BP 130/73; PULSE 59; RESP 14; TEMP 97.6
--- NOTE | 2018-06-15 15:54 | P.DS ---
Providers Date of admission: 06/07/18 14:35 Expected date of discharge: 06/15/18 Attending physician: Jin Javier Consults: 06/07/18 14:36 Consult Physician Routine Consulting Provider: Brant Sanchez Consult Reason/Comments: nstemi Do you want consulting provider notified?: Yes 06/08/18 13:11 Consult Physician Routine Consulting Provider: Michael Ortez Consult Reason/Comments: positive blood cultures Do you want consulting provider notified?: Yes 06/11/18 22:13 Consult Physician Routine Consulting Provider: Ehsan Hernandez Consult Reason/Comments: abnormal ct scan Do you want consulting provider notified?: Yes Primary care physician: [facility] Course: Final Diagnoses: -Acute on chronic CHF, diastolic dysfunction, EF 50-55% -Streptococcus bovis sepsis -Abnormal computed tomography findings reporting cystic lesion in the pelvis -KENTON negative for endocarditis -Alcohol-induced myopathy -Zhu's esophagus due to chronic alcoholism -Obesity, BMI 36.6 -History of CABG and Aortic valve replacement, bioprosthetic -Paroxysmal atrial fibrillation on Eliquis -Troponin 0.0398, possible acute non-STEMI, possibly type II, microinfarction -Hypertension -DJD -Hyperlipidemia Hospital course: This is a 68-year-old gentleman admitted with acute CHF exacerbation, with Streptococcus bovis infection and multiple other medical issues. Evaluated by multiple consults, cardiology, infectious disease, surgery, interventional radiology. Diuresed well on Lasix IV push. Computed tomography scan reported cystic lesion in the pelvis, status post aspiration, cytology pending. Maintained on IV antibiotics. Significant clinical improvement. Patient is being discharged to [facility] subacute rehab in a stable condition with guarded prognosis. Exam: Alert and oriented 3, no acute distress.CV: Muffled S1 and S2, positive systolic murmur. LUNGS: Bilateral bases diminished. ABD: Soft, obese, positive bowel sounds.Neuro: No focal deficits. Microbiology 06/11/18 06:54 Blood Blood Culture - Preliminary No Growth after 96 hours 06/11/18 06:32 Blood Blood Culture - Preliminary No Growth after 96 hours 06/08/18 18:12 Blood Blood Culture Gram Stain - Final 06/08/18 18:12 Blood Blood Culture - Final Group D Not Enterococcus 06/08/18 19:43 Blood Blood Culture Gram Stain - Final 06/08/18 19:43 Blood Blood Culture - Final Group D Not Enterococcus 06/07/18 12:32 Blood Blood Culture Gram Stain - Final 06/07/18 12:32 Blood Blood Culture - Final Streptococcus bovis 06/08/18 18:12 Blood Blood Culture - Final 06/08/18 19:43 Blood Blood Culture - Final 06/07/18 12:32 Blood Blood Culture - Final The impression and plan of care has been dictated as directed. : I performed a history and examination of this patient, discussed the same with the dictator. I agree with the dictator's note ,documented as a scribe. Any additional findings or plans will be noted. Time taken: 35 minutes Patient Condition at Discharge: Stable Plan - Discharge Summary Discharge Rx Participant: No New Discharge Prescriptions: New cefTRIAXone [Rocephin] 2,000 mg IVPB Q24HR #42 vial Spironolactone [Aldactone] 50 mg PO DAILY #0 tab Furosemide [Lasix] 40 mg PO DAILY tab Gabapentin [Neurontin] 100 mg PO TID #9 cap Continue Metoprolol Tartrate [Lopressor] 25 mg PO BID Atorvastatin [Lipitor] 80 mg PO HS [place]-3 Fatty Acids/Fish Oil [Fish Oil 1,000 mg Softgel] 1 cap PO DAILY Multivit-Min/FA/Lycopene/Lut [Centrum Silver Tablet] 1 tab PO DAILY Nitroglycerin Sl Tabs [Nitrostat] 0.4 mg SUBLINGUAL Q5M PRN #25 tab PRN Reason: Chest Pain Amiodarone HCl [Pacerone] 200 mg PO DAILY Isosorbide Mononitrate ER [Imdur] 15 mg PO DAILY dose Apixaban [Eliquis] 5 mg PO BID Ranitidine HCl [Zantac] 150 mg PO BID Vitamin B Complex 1 cap PO DAILY Discontinued Gabapentin [Neurontin] 400 mg PO TID #90 cap Spironolactone [Aldactone] 25 mg PO DAILY Metolazone [Zaroxolyn] 2.5 mg PO DAILY Furosemide [Lasix] 80 mg PO BID Potassium Chloride ER [K-Dur 20] 20 meq PO BID Discharge Medication List Atorvastatin [Lipitor] 80 mg PO HS 10/06/14 [History] Metoprolol Tartrate [Lopressor] 25 mg PO BID 10/06/14 [History] Multivit-Min/FA/Lycopene/Lut [Centrum Silver Tablet] 1 tab PO DAILY 10/06/14 [History] Chester-3 Fatty Acids/Fish Oil [Fish Oil 1,000 mg Softgel] 1 cap PO DAILY 10/06/14 [History] Nitroglycerin Sl Tabs [Nitrostat] 0.4 mg SUBLINGUAL Q5M PRN #25 tab 05/14/15 [Rx] Amiodarone HCl [Pacerone] 200 mg PO DAILY 06/27/16 [History] Isosorbide Mononitrate ER [Imdur] 15 mg PO DAILY dose 05/22/17 [Rx] Apixaban [Eliquis] 5 mg PO BID 09/24/17 [History] Ranitidine HCl [Zantac] 150 mg PO BID 05/30/18 [History] Vitamin B Complex 1 cap PO DAILY 06/07/18 [History] Furosemide [Lasix] 40 mg PO DAILY tab 06/15/18 [Rx] Gabapentin [Neurontin] 100 mg PO TID #9 cap 06/15/18 [Rx] Spironolactone [Aldactone] 50 mg PO DAILY #0 tab 06/15/18 [Rx] cefTRIAXone [Rocephin] 2,000 mg IVPB Q24HR #42 vial 06/15/18 [Rx] Follow up Appointment(s)/Referral(s): Patrick Kessler DO [Primary Care Provider] - 1-2 days Michael Ortez MD [STAFF PHYSICIAN] - 3 Weeks [facility], [NON-STAFF] - As Needed Ehsan Hernandez MD [STAFF PHYSICIAN] - 1 Week Ambulatory/Diagnostic Orders: Basic Metabolic Panel [LAB.AMB] Location: None Selected Complete Blood Count w/diff [LAB.AMB] Location: None Selected Patient Instructions/Handouts: Fine Needle Aspiration Biopsy (DC) Activity/Diet/Wound Care/Special Instructions: [facility] Keep aspiration site covered for 24 hours then free to place a band aid over the site after 24 hours. CBC, BMP in 3 days Diet: Cardiac, 1500 mL fluid restrictions per 24 hours Activity: As tolerated
[2018-06-17] MEDS ORDERED: VANCOMYCIN TROUGH DUE 1 EACH MISC MISCELLANE ONE (05:00)
--- NOTE | 2018-06-22 08:39 | IR ---
PICC LINE PLACEMENT: HISTORY: Infection requiring long-term antibiotic therapy PROCEDURE: Ultrasound and fluoroscopic guidance of PICC line placement. COMPLICATIONS: None ANESTHESIA: 1. 1% Lidocaine locally. FINDINGS/TECHNIQUE: The procedure was explained to the patient. The risks, complications, benefits and alternatives were discussed and any questions were answered. Informed consent was obtained. The patient was placed supine on the fluoroscopic table and prepped and draped in the usual sterile fash ion. Utilizing a 21 gauge needle and sonographic and fluoroscopic guidance, access in the left basi lic vein was achieved and there is placement of a 0.018 guidewire. The vein is patent. A 4-F sheath was placed over the guidewire. The guidewire and dilator were removed and a 4-F. PICC line was plac ed through the sheath with the tip at the level of the SVC. The sheath was removed, the catheter was flushed and sutured into position. The patient was stable throughout the procedure and remained sta ble upon discharge from the Department of Radiology. The vein puncture was patent under ultrasound. A aponte scale image was obtained to document patency of the vein punctured. All elements of the maximal barrier technique were utilized. FLUOROSCOPY TIME: 0.3 minutes and one image submitted IMPRESSION: Successful PICC line placement under ultrasound and fluoroscopic guidance.
== END 2018-06-15 16:56 | DRG 853 ==
LOC: EC 10:55 → 3SCARD 14:35 → 4SSUR 06-11 17:02
PROVIDERS: ADMIT Hospitalist; ATTEND Hospitalist
PROC: B24BZZ4 Ultrasonography of Heart with Aorta, Transesophageal (ICD-10-PCS; principal; 2018-06-10 11:30)
PROC: 0W9J3ZX Drainage of Pelvic Cavity, Percutaneous Approach, Diagnostic (ICD-10-PCS; 2018-06-15)
PROC: 02HV33Z Insertion of Infusion Device into Superior Vena Cava, Percutaneous Approach (ICD-10-PCS; 2018-06-15)
DX: A40.8 Other streptococcal sepsis (principal); I50.33 Acute on chronic diastolic (congestive) heart failure; I21.A1 Myocardial infarction type 2; E87.4 Mixed disorder of acid-base balance; F10.231 Alcohol dependence with withdrawal delirium; I42.6 Alcoholic cardiomyopathy; R18.8 Other ascites; T82.857A Stenosis of other cardiac prosthetic devices, implants and grafts, initial encounter; G72.1 Alcoholic myopathy; I11.0 Hypertensive heart disease with heart failure; I27.20 Pulmonary hypertension, unspecified; I48.0 Paroxysmal atrial fibrillation; J44.9 Chronic obstructive pulmonary disease, unspecified; E86.0 Dehydration; E66.9 Obesity, unspecified; E78.5 Hyperlipidemia, unspecified; I25.10 Atherosclerotic heart disease of native coronary artery without angina pectoris; I25.2 Old myocardial infarction; I44.0 Atrioventricular block, first degree; I73.9 Peripheral vascular disease, unspecified; K22.70 Barrett's esophagus without dysplasia; K42.9 Umbilical hernia without obstruction or gangrene; K57.30 Diverticulosis of large intestine without perforation or abscess without bleeding; M19.91 Primary osteoarthritis, unspecified site; R29.6 Repeated falls; R19.00 Intra-abdominal and pelvic swelling, mass and lump, unspecified site; R74.0 Nonspecific elevation of levels of transaminase and lactic acid dehydrogenase [LDH]; Z68.36 Body mass index [BMI] 36.0-36.9, adult; Z87.891 Personal history of nicotine dependence; Z95.5 Presence of coronary angioplasty implant and graft; Z85.828 Personal history of other malignant neoplasm of skin; Z79.01 Long term (current) use of anticoagulants; Z79.899 Other long term (current) drug therapy; W19.XXXA Unspecified fall, initial encounter; Y92.009 Unspecified place in unspecified non-institutional (private) residence as the place of occurrence of the external cause; Y83.1 Surgical operation with implant of artificial internal device as the cause of abnormal reaction of the patient, or of later complication, without mention of misadventure at the time of the procedure
CPT/HCPCS: 10160; 36415; 36573; 70450; 71045; 71046; 72125; 72170; 74177; 76700; 80048; 80053; 80061; 80202; 80320; 81003; 82140; 82248; 82550; 82803; 83605; 83690; 83735; 83880; 84484; 85025; 85610; 85730; 87040; 87070; 87075; 87077; 87186; 87205; 87502; 88305; 93005; 93306; 93312; 93320; 93325; 94640; 94760; 96365; 96366; 96376; 99285

== ENCOUNTER 2018-08-16 14:22 | Inpatient (IN) | payer MEDICARE, OTHER ==
[2018-08-16 15:13] LABS: Basophils % (A) 0 %; Eosinophils % (A) 0 %; HCT 27.9 % (39.0-53.0); HGB 8.9 gm/dL (13.0-17.5); Lymphocytes # (A) 0.5 k/uL (1.0-4.8); Lymphocytes % (A) 4 %; MCV 90.9 fL (80.0-100.0); Mean Platelet Volume 7.8; Monocytes # (A) 0.8 k/uL (0-1.0); Monocytes % (A) 7 %; Neutrophils # (A) 10.2 k/uL (1.3-7.7); Neutrophils % (A) 86 %; Platelet Count 231 k/uL (150-450); RBC 3.07 m/uL (4.30-5.90); RDW 15.5 % (11.5-15.5); WBC 11.8 k/uL (3.8-10.6)
--- NOTE | 2018-08-16 15:15 | ED ---
General Adult HPI - General Chief complaint: Shortness of Breath Stated complaint: [place] Source: patient, RN notes reviewed Mode of arrival: ambulatory Limitations: no limitations - History of Present Illness Initial comments: This is a 68-year-old male who presents emergency Department with a past medical history significant for congestive heart failure COPD valve replacement and a history of anemia. Patient comes in today because his been short of breath for one week. Patient states is getting progressively worse. Patient states exertion makes it worse per patient denies any chest pain patient denies any recent fever chills or cough per patient denies any headache patient denies numbness weakness. Patient denies any lightheadedness or dizziness. Patient denies abdominal pain patient denies nausea vomiting diarrhea. Patient denies any increased swelling to the legs. - Related Data Home Medications Medication Instructions Recorded Confirmed Atorvastatin [Lipitor] 80 mg PO HS 10/06/14 08/16/18 Metoprolol Tartrate [Lopressor] 25 mg PO BID 10/06/14 08/16/18 [place]-3 Fatty Acids/Fish Oil [Fish 1 cap PO DAILY 10/06/14 08/16/18 Oil 1,000 mg Softgel] Amiodarone HCl [Pacerone] 200 mg PO DAILY 06/27/16 08/16/18 Apixaban [Eliquis] 5 mg PO BID 09/24/17 08/16/18 Ranitidine HCl [Zantac] 150 mg PO BID 05/30/18 08/16/18 Vitamin B Complex 1 cap PO DAILY 06/07/18 08/16/18 HYDROcodone/APAP 5-325MG [[place] 1 tab PO TID PRN 08/16/18 08/16/18 5-325] Isosorbide Mononitrate ER [Imdur] 15 mg PO DAILY 08/16/18 08/16/18 Spironolactone 50 mg PO DAILY 08/16/18 08/16/18 Previous Rx's Medication Instructions Recorded Nitroglycerin Sl Tabs [Nitrostat] 0.4 mg SUBLINGUAL Q5M PRN #25 tab 05/14/15 Furosemide [Lasix] 40 mg PO DAILY tab 06/15/18 Gabapentin [Neurontin] 100 mg PO TID #9 cap 06/15/18 Allergies Allergy/AdvReac Type Severity Reaction Status Date / Time No Known Allergies Allergy Verified 08/16/18 14:42 Review of Systems ROS Statement: Those systems with pertinent positive or pertinent negative responses have been documented in the HPI. ROS Other: All systems not noted in ROS Statement are negative. Past Medical History Past Medical History: Atrial Fibrillation, Cancer, GI Bleed, Hyperlipidemia, Hypertension, Myocardial Infarction ([place]), Osteoarthritis (OA), Vascular Disorder Additional Past Medical History / Comment(s): PVD, BACK PAIN, SWELLING IN ANKLES AND FEET, hx SKIN CANCER Last Myocardial Infarction Date:: 01-20-13 History of Any Multi-Drug Resistant Organisms: None Reported Past Surgical History: Heart Catheterization, Heart Catheterization With Stent Additional Past Surgical History / Comment(s): aortic valve replacement 2013, aortogram, pt states 2 failed stent replacement-1 to each leg, PAIN CLINIC PROCEDURES, ABDOMINAL AORTOGRAM, Past Anesthesia/Blood Transfusion Reactions: No Reported Reaction Date of Last Stent Placement:: 05/30/15 Past Psychological History: No Psychological Hx Reported Smoking Status: Former smoker Past Alcohol Use History: None Reported Past Drug Use History: None Reported - Past Family History Mother Family Medical History: Deep Vein Thrombosis (DVT) General Exam - General Exam Comments Initial Comments: GENERAL: Patient is well-developed and well-nourished. Patient is nontoxic and well- hydrated and is in mild distress. ENT: Neck is soft and supple. No significant lymphadenopathy is noted. Oropharynx is clear. Moist mucous membranes. Neck has full range of motion without eliciting any pain. EYES: The sclera were anicteric and conjunctiva were pink and moist. Extraocular movements were intact and pupils were equal round and reactive to light. Eyeli ds were unremarkable. PULMONARY: Unlabored respirations. Good breath sounds bilaterally. No audible rales rhonchi or wheezing was noted. CARDIOVASCULAR: There is a regular rate and rhythm without any murmurs gallops or rubs. ABDOMEN: Soft and nontender with normal bowel sounds. SKIN: School appears pale NEUROLOGIC: Patient is alert and oriented x3. Cranial nerves II through XII are grossly intact. Motor and sensory are also intact. Normal speech, volume and content. Symmetrical smile. MUSCULOSKELETAL: Normal extremities with adequate strength and full range of motion. No lower extremity swelling or edema. No calf tenderness. LYMPHATICS: No significant lymphadenopathy is noted PSYCHIATRIC: Normal psychiatric evaluation. Limitations: no limitations Course Vital Signs 06/02/19 06/02/19 14:27 16:00 Temperature 97.8 F Pulse Rate 89 73 Respiratory 18 18 Rate Blood Pressure 133/60 135/67 O2 Sat by Pulse 90 L 96 Oximetry Medical Decision Making - Medical Decision Making EKG shows sinus rhythm at 80 bpm [place] interval is 206 QRS is 108 QT interval 392 QTC is 474. Patient's EKG was compared to an old EKG in no new abnormalities were noted. Patient does have some flipped T's in V5 and V6 as well as some ST segment depression in 1 and aVL which was seen on previous EKGs. Chest x-ray shows mild pulmonary edema. Computed tomography scan shows no PE and more vomiting edema. I started the patient Lasix continued Lasix on the floor as well as Nitropaste. I also repeated the troponin was mildly elevated in the emergency department. I consulted cardiology after I spoke with Dr. Partida and admitted him and wrote admitting orders - Lab Data Result diagrams: 08/16/18 14:52 08/16/18 14:52 Lab Results 08/16/18 08/16/18 08/16/18 Range/Units 14:52 14:52 14:52 WBC 11.8 H (3.8-10.6) k/uL RBC 3.07 L (4.30-5.90) m/uL Hgb 8.9 L (13.0-17.5) gm/dL Hct 27.9 L (39.0-53.0) % MCV 90.9 (80.0-100.0) fL MCH 29.0 (25.0-35.0) pg MCHC 32.0 (31.0-37.0) g/dL RDW 15.5 (11.5-15.5) % Plt Count 231 (150-450) k/uL Neutrophils % 86 % Lymphocytes % 4 % Monocytes % 7 % Eosinophils % 0 % Basophils % 0 % Neutrophils # 10.2 H (1.3-7.7) k/uL Lymphocytes # 0.5 L (1.0-4.8) k/uL Monocytes # 0.8 (0-1.0) k/uL Eosinophils # 0.0 (0-0.7) k/uL Basophils # 0.0 (0-0.2) k/uL PT 13.5 H (9.0-12.0) sec INR 1.3 H (<1.2) APTT 29.3 (22.0-30.0) sec D-Dimer 1.37 H (<0.60) mg/L FEU Sodium 133 L (137-145) mmol/L Potassium 4.1 (3.5-5.1) mmol/L Chloride 94 L (98-107) mmol/L Carbon Dioxide 26 (22-30) mmol/L Anion Gap 13 mmol/L BUN 28 H (9-20) mg/dL Creatinine 1.08 (0.66-1.25) mg/dL Est GFR (CKD-EPI)AfAm 80 (>60 ml/min/1.73 sqM) Est GFR (CKD-EPI)NonAf 69 (>60 ml/min/1.73 sqM) Glucose 145 H (74-99) mg/dL Calcium 8.5 (8.4-10.2) mg/dL Magnesium 1.5 L (1.6-2.3) mg/dL Total Bilirubin 2.2 H (0.2-1.3) mg/dL AST 65 H (17-59) U/L ALT 52 (21-72) U/L Alkaline Phosphatase 129 H (38-126) U/L Troponin I (0.000-0.034) ng/mL NT-Pro-B Natriuret Pep pg/mL Total Protein 7.0 (6.3-8.2) g/dL Albumin 3.5 (3.5-5.0) g/dL 08/16/18 08/16/18 Range/Units 14:52 14:52 WBC (3.8-10.6) k/uL RBC (4.30-5.90) m/uL Hgb (13.0-17.5) gm/dL Hct (39.0-53.0) % MCV (80.0-100.0) fL MCH (25.0-35.0) pg MCHC (31.0-37.0) g/dL RDW (11.5-15.5) % Plt Count (150-450) k/uL Neutrophils % % Lymphocytes % % Monocytes % % Eosinophils % % Basophils % % Neutrophils # (1.3-7.7) k/uL Lymphocytes # (1.0-4.8) k/uL Monocytes # (0-1.0) k/uL Eosinophils # (0-0.7) k/uL Basophils # (0-0.2) k/uL PT (9.0-12.0) sec INR (<1.2) APTT (22.0-30.0) sec D-Dimer (<0.60) mg/L FEU Sodium (137-145) mmol/L Potassium (3.5-5.1) mmol/L Chloride (98-107) mmol/L Carbon Dioxide (22-30) mmol/L Anion Gap mmol/L BUN (9-20) mg/dL Creatinine (0.66-1.25) mg/dL Est GFR (CKD-EPI)AfAm (>60 ml/min/1.73 sqM) Est GFR (CKD-EPI)NonAf (>60 ml/min/1.73 sqM) Glucose (74-99) mg/dL Calcium (8.4-10.2) mg/dL Magnesium (1.6-2.3) mg/dL Total Bilirubin (0.2-1.3) mg/dL AST (17-59) U/L ALT (21-72) U/L Alkaline Phosphatase (38-126) U/L Troponin I 0.680 H* (0.000-0.034) ng/mL NT-Pro-B Natriuret Pep 99036 pg/mL Total Protein (6.3-8.2) g/dL Albumin (3.5-5.0) g/dL Critical Care Time Critical Care Time: Yes Total Critical Care Time: 35 Disposition Clinical Impression: Acute pulmonary edema, Elevated troponin Disposition: ADMITTED IP TO THIS HOSP Referrals: Patrick Kessler DO [Primary Care Provider] - 1-2 days Time of Disposition: 17:30
[2018-08-16 15:23] LABS: Albumin 3.5 g/dL (3.5-5.0); Calcium 8.5 mg/dL (8.4-10.2); Magnesium 1.5 mg/dL (1.6-2.3); Potassium 4.1 mmol/L (3.5-5.1); Total Bilirubin 2.2 mg/dL (0.2-1.3)
--- NOTE | 2018-08-16 15:25 | XR ---
EXAMINATION TYPE: XR chest 2V DATE OF EXAM: 08/16/2018 COMPARISON: 06/08/2018 HISTORY: Increasing shortness of breath TECHNIQUE: Frontal and lateral views of the chest are obtained. FINDINGS: There are trace pleural effusions and diffuse interstitial prominence that is similar to t he prior of 06/08/2018. Cardiomediastinal silhouette is enlarged with post CABG changes the chest. No sizable pneumothorax. No acute osseous pathology. Generalized osseous demineralization and mild degen erative changes of the spine are seen. Underlying COPD is redemonstrated with flattening of the diaph ragms on the lateral view. IMPRESSION: Pleural effusions and cardiomegaly as well as diffuse interstitial prominence likely pul monary edema. Consider congestive heart failure. Underlying COPD.
[2018-08-16 15:34] LABS: INR 1.3 (<1.2); Partial Thromboplastin Time 29.3 sec (22.0-30.0); Prothrombin Time 13.5 sec (9.0-12.0)
[2018-08-16 15:45] LABS: D-Dimer 1.37 mg/L FEU (<0.60)
--- NOTE | 2018-08-16 17:08 | CT ---
EXAMINATION TYPE: CT chest angio for PE DATE OF EXAM: 08/16/2018 COMPARISON: NONE HISTORY: Shortness of breath for one week and elevated d-dimer CT DLP: 529.1 mGycm. Automated Exposure Control for Dose Reduction was Utilized. CONTRAST: CTA scan of the thorax is performed with IV Contrast, patient injected with 100 mL of Isovue 370, pul monary embolism protocol. MIP Images are created on CT scanner and reviewed. FINDINGS: LUNGS: There is mild interstitial edema and small bilateral pleural effusions with associated bibasil ar atelectasis. Scattered geographic groundglass opacities are also most commonly related to intersti tial edema with interlobular septal thickening present. Bandlike bibasilar scarring or atelectasis ar e noted. The main tracheobronchial tree is patent. MEDIASTINUM: There is satisfactory enhancement of the pulmonary artery and its branches, there is no CT evidence for pulmonary embolism. There are no greater than 1 cm hilar or mediastinal lymph nodes. Heart is enlarged without pericardial effusion. Post CABG changes the chest are noted. OTHER: There is bilateral symmetric moderate gynecomastia. Severe atherosclerosis of the upper abdomi nal aorta is seen. Small hiatal hernia is present. There are old healed fracture deformities of bilat eral lateral ribs. These are callused. Minimal multilevel degenerative changes of the spine are seen. IMPRESSION: 1. No evidence of pulmonary embolus. 2. Interstitial pulmonary edema, small pleural effusions, multifocal atelectasis and cardiomegaly sug gest underlying congestive heart failure. 3. Bilateral healed rib fracture deformities and small hiatal hernia are incidentally noted.
[2018-08-16] MEDS ORDERED: FUROSEMIDE 10 MG/ML 2 ML VIAL IV ONE (17:21)
[2018-08-16] MEDS ORDERED: NITROGLYCERIN SL TABS 0.4 MG TAB SUBLINGUAL PRN (20:01)
[2018-08-16] MEDS ORDERED: HYDROcodone/APAP 5-325MG 1 EACH TAB PO PRN (20:01)
[2018-08-16] MEDS: GABAPENTIN 100 MG CAP PO SCH (20:31)
[2018-08-16] MEDS: ATORVASTATIN 80 MG TAB PO SCH (20:31)
[2018-08-16] MEDS: METOPROLOL TARTRATE 25 MG TAB PO SCH (20:31)
[2018-08-16] MEDS: APIXABAN 5 MG TAB PO SCH (20:31)
[2018-08-16] MEDS: FAMOTIDINE 20 MG TAB PO SCH (20:33)
[2018-08-16] MEDS ORDERED: NITROGLYCERIN OINT 1 INCH/GM PACKET TOPICAL SCH (22:00)
[2018-08-16] MEDS: FUROSEMIDE 10 MG/ML 2 ML VIAL IV SCH (23:01)
[2018-08-17 07:42] LABS: Anisocytosis Slight; Basophils % (A) 0 %; Eosinophils # (A) 0.1 k/uL (0-0.7); Eosinophils % (A) 1 %; HCT 25.2 % (39.0-53.0); HGB 8.2 gm/dL (13.0-17.5); Hypochromasia Slight; Lymphocytes # (A) 0.4 k/uL (1.0-4.8); Lymphocytes % (A) 4 %; MCH 29.6 pg (25.0-35.0); MCHC 32.5 g/dL (31.0-37.0); Mean Platelet Volume 8.4; Monocytes # (A) 0.7 k/uL (0-1.0); Monocytes % (A) 6 %; Neutrophils # (A) 10.4 k/uL (1.3-7.7); Neutrophils % (A) 88 %; Platelet Count 213 k/uL (150-450); Poikilocytosis Slight; RBC 2.77 m/uL (4.30-5.90); RDW 16.1 % (11.5-15.5); WBC 11.8 k/uL (3.8-10.6)
[2018-08-17] MEDS: SPIRONOLACTONE 25 MG TAB PO SCH (09:34)
[2018-08-17] MEDS: FAMOTIDINE 20 MG TAB PO SCH ×2 (09:34→20:49)
[2018-08-17] MEDS: FUROSEMIDE 10 MG/ML 2 ML VIAL IV SCH (09:34)
[2018-08-17] MEDS: ISOSORBIDE MONONITRATE ER 15 MG TAB PO SCH (09:34)
[2018-08-17] MEDS: APIXABAN 5 MG TAB PO SCH ×2 (09:34→20:49)
[2018-08-17] MEDS: GABAPENTIN 100 MG CAP PO SCH ×3 (09:34→20:50)
[2018-08-17] MEDS: AMIODARONE 200 MG TAB PO SCH (09:34)
[2018-08-17] MEDS: METOPROLOL TARTRATE 25 MG TAB PO SCH ×2 (09:34→20:49)
[2018-08-17] MEDS: NON-FORMULARY DRUG (Vitamin B Complex [Vitamin B Complex] 1 CAP) PO SCH (09:36)
--- NOTE | 2018-08-17 11:54 | P.CRDCN ---
History of Present Illness Consult date: 08/17/18 Requesting physician: Jin Partida Consult reason: congestive heart failure Chief complaint: Shortness of breath History of present illness: This is a 68-year-old gentleman who follows regularly with Dr. VC Rodas in the office. He has a known history of hypertension, hyperlipidemia, paroxysmal atrial fibrillation, coronary artery disease with prior bypass surgery and aortic valve replacement in 2012, history of coronary stents, PAD with prior attempts at vascular stenting, daily EtOH use and prior history of smoking, presented to the hospital on this occasion with symptoms of progressively worsening shortness of breath. According to the patient, for the past one week patient states he's been progressively more and more short of breath. Positive PND and orthopnea. He states that he has not been sleeping for the past several days because of his inability to breathe that, he also states that his appetite at home has been very poor because of the shortness of breath as well. His chest x-ray on admission showed pleural effusions and cardiomegaly as well as diffuse interstitial prominence likely representing pulmonary edema. A CTA of the chest was also performed which did not show evidence of pulmonary embolism. It did show interstitial pulmonary edema, small pleural effusions, atelectasis and underlying congestive cardiac failure. Blood pressure on arrival here 132/60 with a heart rate in the 80s, 90% on room air. Blood pressure this morning 94/40, heart rate in the 60s, 94% on 3 L of oxygen. He is afebrile. White blood cell count on admission 11.8, hemoglobin 8.2, platelet count 213. D-dimer 1.3, sodium 133, potassium 4.0, BUN 26 and creatinine 1.0. Magnesium level I.5, total bilirubin 2.2, AST 65, ALT 52, alk phos 129. Initial troponin 0.68. BNP level 26,700. The patient was initiated on IV Lasix in the emergency room, he states that he's been diuresing overall quite well since his admission here however still feels considerably short of breath and extremely tired this morning. EKG shows a normal sinus rhythm with nonspecific ST-T wave changes. Past Medical History Past Medical History: Atrial Fibrillation, Cancer, COPD, GI Bleed, Hyperlipidemia, Hypertension, Myocardial Infarction ([place]), Osteoarthritis (OA), Vascular Disorder Additional Past Medical History / Comment(s): PVD, BACK PAIN, SWELLING IN ANKLES AND FEET, hx SKIN CANCER Last Myocardial Infarction Date:: 01-20-13 History of Any Multi-Drug Resistant Organisms: None Reported Past Surgical History: Heart Catheterization, Heart Catheterization With Stent Additional Past Surgical History / Comment(s): aortic valve replacement 2012, aortogram, pt states 2 failed stent replacement-1 to each leg, PAIN CLINIC PROCEDURES, ABDOMINAL AORTOGRAM, Stent in right leg Past Anesthesia/Blood Transfusion Reactions: No Reported Reaction Date of Last Stent Placement:: 05/30/15 Past Psychological History: No Psychological Hx Reported Smoking Status: Former smoker Past Alcohol Use History: None Reported Additional Past Alcohol Use History / Comment(s): Quit smoking October 2014, smoked for >50 yrs. Patient drinks 9-10 beers per day and quit 3 weeks ago. He is currently living alone. No pets in the home. 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 He was in the [employer] stationed in [place]. He denies any travel. Past Drug Use History: None Reported - Past Family History Mother Family Medical History: Deep Vein Thrombosis (DVT) Medications and Allergies Home Medications Medication Instructions Recorded Confirmed Type Atorvastatin [Lipitor] 80 mg PO HS 10/06/14 08/16/18 History Metoprolol Tartrate [Lopressor] 25 mg PO BID 10/06/14 08/16/18 History [place]-3 Fatty Acids/Fish Oil [Fish 1 cap PO DAILY 10/06/14 08/16/18 History Oil 1,000 mg Softgel] Nitroglycerin Sl Tabs [Nitrostat] 0.4 mg SUBLINGUAL Q5M PRN #25 tab 05/14/15 08/16/18 Rx Amiodarone HCl [Pacerone] 200 mg PO DAILY 06/27/16 08/16/18 History Apixaban [Eliquis] 5 mg PO BID 09/24/17 08/16/18 History Ranitidine HCl [Zantac] 150 mg PO BID 05/30/18 08/16/18 History Vitamin B Complex 1 cap PO DAILY 06/07/18 08/16/18 History Furosemide [Lasix] 40 mg PO DAILY tab 06/15/18 08/16/18 Rx Gabapentin [Neurontin] 100 mg PO TID #9 cap 06/15/18 08/16/18 Rx HYDROcodone/APAP 5-325MG [[place] 1 tab PO TID PRN 08/16/18 08/16/18 History 5-325] Isosorbide Mononitrate ER [Imdur] 15 mg PO DAILY 08/16/18 08/16/18 History Spironolactone 50 mg PO DAILY 08/16/18 08/16/18 History Allergies Allergy/AdvReac Type Severity Reaction Status Date / Time No Known Allergies Allergy Verified 08/16/18 14:42 Physical Exam Vitals: Vital Signs Temp Pulse Pulse Resp BP BP BP 08/17/18 11:20 98.3 F 63 20 94/46 08/17/18 08:45 98 F 80 20 130/63 08/17/18 03:33 98.3 F 83 20 139/61 08/17/18 00:00 65 18 119/46 08/16/18 20:00 98.2 F 66 18 118/56 08/16/18 19:00 97.8 F 67 18 109/55 08/16/18 18:00 97.8 F 71 18 111/77 08/16/18 17:00 68 18 112/73 08/16/18 16:00 73 18 135/67 08/16/18 14:27 97.8 F 89 18 133/60 Pulse Ox 08/17/18 11:20 94 L 08/17/18 08:45 91 L 08/17/18 03:33 92 L 08/17/18 00:00 96 08/16/18 20:00 94 L 08/16/18 19:00 95 08/16/18 18:00 95 08/16/18 17:00 95 08/16/18 16:00 96 08/16/18 14:27 90 L Intake and Output 08/16/18 08/17/18 08/17/18 22:59 06:59 14:59 Output Total 350 300 300 Balance -350 -300 -300 Output: Urine 350 300 300 Other: Voiding Method Toilet Toilet Toilet # Voids 1 # Bowel Movements 1 Weight 115.5 kg PHYSICAL EXAMINATION: GENERAL: 68-year-old gentleman in no acute distress at the time of my examination HEENT: Head is atraumatic, normocephalic. Pupils equal, round. Sclera anicteric. Conjunctiva are clear. Mucous membranes of the mouth are moist. Neck is supple. There is elevated jugular venous pressure. Bilateral carotid bruits are heard. HEART EXAMINATION: Heart S1, S2 systolic ejection murmur is heard in aortic area. CHEST EXAMINATION: Lungs reveal bilateral rales with diminished air entry to the bases bilaterally ABDOMEN: Soft, nontender. Bowel sounds are heard. No organomegaly noted. EXTREMITIES: 2+ peripheral pulses with 1-2+ evidence of peripheral edema and no calf tenderness noted. NEUROLOGIC patient is awake, alert and oriented 3 . . Results 08/17/18 06:01 08/17/18 06:01 Cardiac Enzymes 08/16/18 08/16/18 Range/Units 14:52 14:52 AST 65 H (17-59) U/L Troponin I 0.680 H* (0.000-0.034) ng/mL Coagulation 08/16/18 Range/Units 14:52 PT 13.5 H (9.0-12.0) sec APTT 29.3 (22.0-30.0) sec CBC 08/16/18 08/17/18 Range/Units 14:52 06:01 WBC 11.8 H 11.8 H (3.8-10.6) k/uL RBC 3.07 L 2.77 L (4.30-5.90) m/uL Hgb 8.9 L 8.2 L (13.0-17.5) gm/dL Hct 27.9 L 25.2 L (39.0-53.0) % Plt Count 231 213 (150-450) k/uL Comprehensive Metabolic Panel 08/16/18 08/17/18 Range/Units 14:52 06:01 Sodium 133 L 133 L (137-145) mmol/L Potassium 4.1 4.0 (3.5-5.1) mmol/L Chloride 94 L 95 L (98-107) mmol/L Carbon Dioxide 26 29 (22-30) mmol/L BUN 28 H 26 H (9-20) mg/dL Creatinine 1.08 1.01 (0.66-1.25) mg/dL Glucose 145 H 112 H (74-99) mg/dL Calcium 8.5 8.0 L (8.4-10.2) mg/dL AST 65 H (17-59) U/L ALT 52 (21-72) U/L Alkaline Phosphatase 129 H (38-126) U/L Total Protein 7.0 (6.3-8.2) g/dL Albumin 3.5 (3.5-5.0) g/dL Current Medications Generic Name Dose Route Start Last Admin Trade Name Freq PRN Reason Stop Dose Admin Hydrocodone Bitart/Acetaminophen 1 each 08/16/18 20:01 [place] 5-325 PO TID PRN Pain Amiodarone HCl 200 mg 08/17/18 09:00 08/17/18 09:34 Cordarone PO 200 mg DAILY CARLOS Administration Apixaban 5 mg 08/16/18 21:00 08/17/18 09:34 Eliquis PO 5 mg BID CARLOS Administration Atorvastatin Calcium 80 mg 08/16/18 21:00 08/16/18 20:31 Lipitor PO 80 mg HS CARLOS Administration Famotidine 20 mg 08/16/18 21:00 08/17/18 09:34 Pepcid PO 20 mg BID CARLOS Administration Furosemide 20 mg 08/17/18 00:00 08/17/18 09:34 Lasix IV 20 mg Q8HR CARLOS Administration Gabapentin 100 mg 08/16/18 22:00 08/17/18 09:34 Neurontin PO 100 mg TID [facility] Administration Isosorbide Mononitrate 15 mg 08/17/18 09:00 08/17/18 09:34 Imdur PO 15 mg DAILY [facility] Administration Metoprolol Tartrate 25 mg 08/16/18 21:00 08/17/18 09:34 Lopressor PO 25 mg BID [facility] Administration Nitroglycerin 0.4 mg 08/16/18 20:01 Nitrostat SUBLINGUAL Q5M PRN Chest Pain Non-Formulary Medication 1 cap 08/17/18 09:00 08/17/18 09:36 Vitamin B Complex [Vitamin B Complex] PO Not Given DAILY [facility] Spironolactone 50 mg 08/17/18 09:00 08/17/18 09:34 Aldactone PO 50 mg DAILY [facility] Administration Intake and Output 08/16/18 08/17/18 08/17/18 22:59 06:59 14:59 Output Total 350 300 300 Balance -350 -300 -300 Output: Urine 350 300 300 Other: Voiding Method Toilet Toilet Toilet # Voids 1 # Bowel Movements 1 Weight 115.5 kg 08/17/18 06:01 08/17/18 06:01 EKG Interpretations (text) EKG shows a normal sinus rhythm with first-degree AV block. Assessment and Plan Plan: Assessment and plan #1 diastolic congestive heart failure acute on chronic. Most recent echo was performed in May of this year which revealed an ejection fraction of 50-55%, mild to moderate stenosis of the bioprosthetic aortic valve was noted moderate pulmonary hypertension. #2 known history of coronary artery disease with prior bypass surgery and aortic valve replacement in 2012 ,patient also has history of prior cardiac stents #3 hypertension #4 hyperlipidemia #5 PVD with prior attempts at vascular stenting #6 history of nicotine dependence #7 current EtOH use daily #8 paroxysmal atrial fibrillation, on amiodarone, on Eliquis for anticoagulation Plan Patient just had an echocardiogram with Doppler study formed in May of this year which revealed an ejection fraction of 50-55%, mild to moderate stenosis of the bioprosthetic aortic valve. Subsequent to that at [facility] was performed on June 10 which revealed a thickening and calcification of the bioprosthetic aortic leaflets, they were opening fairly normally. No definite evidence to suggest any vegetations, mild aortic regurg was noted. Mild thickening of the mitral leaflets noted without any vegetations. No evidence of vegetations on the tricuspid valve and the left ventricular systolic function was documented to be normal. No evidence of thrombus. We will continue to diurese the patient, increasing the dose of IV Lasix to 40 mg IV every 8 hourly. Continue Aldactone, metoprolol, Lipitor, consider the addition of GIULIANO inhibitor or angiotensin missael. Monitor intake and output along with daily weights and daily lytes BUN and creatinine. Further recommendations to follow. DNP note has been reviewed, I agree with a documented findings and plan of care. Patient was seen and examined.
[2018-08-17] MEDS: FUROSEMIDE 10 MG/ML 10 ML VIAL IV SCH ×2 (16:24→16:25)
--- NOTE | 2018-08-17 17:10 | HP ---
HISTORY AND PHYSICAL DATE OF ADMISSION: August 16, 2018. DATE OF SERVICE: August 17, 2018. PRESENTING COMPLAINT: Short of breath. HISTORY OF PRESENTING COMPLAINT: This is a pleasant 68-year-old patient of Dr. Kessler whose chronic stable medical conditions include hypertensive heart disease, alcohol-induced myopathy, hypertension, bicuspid aortic valve, peripheral artery disease, primary osteoarthritis, coronary artery disease, hyperlipidemia, Zhu's esophagus from chronic alcoholism, colonic diverticulosis, paroxysmal atrial fibrillation for which patient is on Eliquis. The patient presents with worsening short of breath going on for a week. No cough. No fever. No chills. Edema is increasing. The patient does have orthopnea and does use two pillows. Appetite has gone down. REVIEW OF SYSTEMS: CONSTITUTIONAL: Tired. Decreased appetite. HEENT: None. RESPIRATORY: As above. CARDIOVASCULAR as above. No chest pain. GASTROINTESTINAL: None. GENITOURINARY: None. MUSCULOSKELETAL: Some pain in the joints. DERMATOLOGICAL, HEMATOLOGIC, LYMPHATICS: none. PSYCHIATRY none. NEUROLOGICAL: None. PAST MEDICAL HISTORY: Of congestive heart failure from diastolic dysfunction, persistent atrial fibrillation, hypertension, aortic valve regurgitation, peripheral artery disease, osteoarthritis, coronary artery disease, hyperlipidemia, colonic diverticulosis, Zhu's esophagus. PAST SURGICAL HISTORY: Cardiac cath with stent, aortic valve replaced in 2012, had peripheral stents, abdominal aortogram. SOCIAL HISTORY: The patient smoked for more than 50 years, stopped in 2014, was drinking 9 beers a day up to 4 weeks ago. Lives alone. Does use a walker. FAMILY HISTORY: DVT. HOME MEDICATIONS: 1. Vitamin B complex 1 capsule p.o. daily. 2. Aldactone 50 mg p.o. daily. 3. Zantac 150 mg b.i.d. 4. Fish oil 1 capsule p.o. daily. 5. Nitrostat 0.4 sublingual q.5 p.r.n. 6. Lopressor 25 mg b.i.d. 7. Imdur ER 50 mg p.o. daily. 8. Rutherford 5 one tablet p.o. t.i.d. p.r.n. 9. Neurontin 100 mg t.i.d. 10.Lasix 40 mg p.o. daily. 11.Lipitor 80 mg at bedtime. 12.Eliquis 5 mg b.i.d. 13.Amiodarone 200 mg p.o. daily. ALLERGIES: None. PHYSICAL EXAMINATION: VITAL SIGNS: Vital signs on presentation, temperature 97.8, pulse 89, respiratory 18, blood pressure 133/60, pulse ox 98% on room air. GENERAL APPEARANCE: Well built. BMI 34.5. Lying in bed, tired-appearing. EYES: Pupils equal. Conjunctivae normal. HEENT: External appearance of nose and ears normal. Oral cavity normal. NECK: JVD raised. Mass not palpable. RESPIRATORY: Effort increased. LUNGS: Bibasilar crackles. CARDIOVASCULAR: First and second sounds normal. Edema present. ABDOMEN: Slightly distended, soft. Liver and spleen not palpable. LYMPHATICS: No lymph nodes palpable in the neck and axilla. PSYCHIATRY: Answering questions appropriately. NEUROLOGICAL: Pupils equal. Cranial nerves grossly intact. Power and sensation grossly intact. MUSCULOSKELETAL: Evidence of osteoarthritis especially in the hands. INVESTIGATIONS: White count 11.8, hemoglobin 8.9, INR 1.3, potassium 4.1, BUN 28, creatinine 1.08. Troponin 0.680. ProBNP 42137. Chest x-ray film personally reviewed by me shows cardiomegaly, pulmonary edema, fluid in the fissures. Chest CTA shows interstitial pulmonary edema. Patient had a [facility] on June 10. Did show some thickening and calcification of the bioprosthetic aortic leaflet. Otherwise leaflets were opening normally. No evidence of any vegetation. 2D echocardiogram done on June 08 showed EF of 50-55 percent, moderate concentric left ventricular hypertrophy. ASSESSMENT: 1. Acute on chronic congestive heart failure exacerbation, severe from diastolic dysfunction. Ejection fraction 50-55 percent, POA. 2. Hypertensive heart disease. 3. Essential hypertension. 4. Bicuspid aortic valve working normally per recent [facility]. 5. Peripheral artery disease with prior stents. 6. Primary osteoarthritis. 7. Coronary artery disease. 8. Hyperlipidemia. 9. Zhu's esophagus, from chronic alcoholism. 10.Colonic diverticulosis. 11.Obesity; BMI 34.5. 12.Paroxysmal atrial fibrillation. Patient is on Eliquis. PLAN: Cardiology was consulted. The patient is put on IV Lasix 60 mg q.8. electrolytes will be followed closely. Patient is put on fluid restriction of 1800 mL a day. Care was discussed with the patient. Questions were answered. Copy to Dr. Kessler. MMDOIML / ENEDINAN: [id number] /
[2018-08-17] MEDS: ATORVASTATIN 80 MG TAB PO SCH (20:50)
[2018-08-18] MEDS: FUROSEMIDE 10 MG/ML 10 ML VIAL IV SCH ×2 (00:03→10:28)
[2018-08-18 07:04] LABS: Calcium 7.8 mg/dL (8.4-10.2); Potassium 3.2 mmol/L (3.5-5.1)
[2018-08-18] MEDS: ISOSORBIDE MONONITRATE ER 15 MG TAB PO SCH (09:04)
[2018-08-18] MEDS: AMIODARONE 200 MG TAB PO SCH (09:04)
[2018-08-18] MEDS: FAMOTIDINE 20 MG TAB PO SCH ×2 (09:04→21:21)
[2018-08-18] MEDS: METOPROLOL TARTRATE 25 MG TAB PO SCH ×2 (09:04→21:22)
[2018-08-18] MEDS: GABAPENTIN 100 MG CAP PO SCH ×3 (09:04→21:21)
[2018-08-18] MEDS: APIXABAN 5 MG TAB PO SCH ×2 (09:04→21:21)
[2018-08-18] MEDS: SPIRONOLACTONE 25 MG TAB PO SCH (09:04)
[2018-08-18] MEDS: NON-FORMULARY DRUG (Vitamin B Complex [Vitamin B Complex] 1 CAP) PO SCH (09:05)
[2018-08-18] MEDS ORDERED: Potassium Replacement Protocol 1 EACH MISC MISCELLANE PRN (12:06)
[2018-08-18] MEDS: POTASSIUM CHLORIDE ER 20 MEQ TAB.ER PO SCH ×2 (12:41→16:12)
[2018-08-18] MEDS ORDERED: POTASSIUM CHLORIDE ER 20 MEQ TAB.ER PO ONE (14:00)
[2018-08-18] MEDS ORDERED: GABAPENTIN 100 MG CAP ONE (14:00)
--- NOTE | 2018-08-18 16:15 | P.PN ---
Subjective Progress Note Date: 08/18/18 This is a 68-year-old gentleman who follows regularly with Dr. VC Rodas in the office. He has a known history of hypertension, hyperlipidemia, paroxysmal atrial fibrillation, coronary artery disease with prior bypass surgery and aortic valve replacement in 2012, history of coronary stents, PAD with prior attempts at vascular stenting, daily EtOH use and prior history of smoking, presented to the hospital on this occasion with symptoms of progressively worsening shortness of breath. According to the patient, for the past one week patient states he's been progressively more and more short of breath. Positive PND and orthopnea. He states that he has not been sleeping for the past several days because of his inability to breathe that, he also states that his appetite at home has been very poor because of the shortness of breath as well. His chest x-ray on admission showed pleural effusions and cardiomegaly as well as diffuse interstitial prominence likely representing pulmonary edema. A CTA of the chest was also performed which did not show evidence of pulmonary embolism. It did show interstitial pulmonary edema, small pleural effusions, atelectasis and underlying congestive cardiac failure. Blood pressure on arrival here 132/60 with a heart rate in the 80s, 90% on room air. Blood pressure this morning 94/40, heart rate in the 60s, 94% on 3 L of oxygen. He is afebrile. White blood cell count on admission 11.8, hemoglobin 8.2, platelet count 213. D-dimer 1.3, sodium 133, potassium 4.0, BUN 26 and creatinine 1.0. Magnesium level I.5, total bilirubin 2.2, AST 65, ALT 52, alk phos 129. Initial troponin 0.68. BNP level 26,700. The patient was initiated on IV Lasix in the emergency room, he states that he's been diuresing overall quite well since his admission here however still feels considerably short of breath and extremely tired this morning. EKG shows a normal sinus rhythm with nonspecific ST-T wave changes. 08/18/2018 Patient was seen and examined this morning, overall he is diuresing well. Continues to have significant bilateral peripheral edema. We will decrease his IV Lasix to 40 mg every 8 hourly today and supplement his potassium. Sodium today 133, potassium 3.2, BUN 27 and creatinine 1.0. Objective - Vital Signs Vital signs: Vital Signs Temp 97.4 F L 08/18/18 12:00 Pulse 72 08/18/18 12:00 Resp 17 08/18/18 12:00 BP 104/55 08/18/18 12:00 Pulse Ox 93 L 08/18/18 12:00 Intake & Output 08/17/18 08/18/18 08/18/18 18:59 06:59 18:59 Intake Total 360 440 418 Output Total 900 300 600 Balance -540 140 -182 Weight 115.5 kg 117 kg Intake: Oral 360 440 418 Output: Urine 900 300 600 Other: Voiding Method Toilet # Bowel Movements 1 - Exam PHYSICAL EXAMINATION: GENERAL: 68-year-old gentleman in no acute distress at the time of my examination HEENT: Head is atraumatic, normocephalic. Pupils equal, round. Sclera anicteric. Conjunctiva are clear. Mucous membranes of the mouth are moist. Neck is supple. There is elevated jugular venous pressure. Bilateral carotid bruits are heard. HEART EXAMINATION: Heart S1, S2 systolic ejection murmur is heard in aortic area. CHEST EXAMINATION: Lungs reveal bilateral rales with diminished air entry to the bases bilaterally ABDOMEN: Soft, nontender. Bowel sounds are heard. No organomegaly noted. EXTREMITIES: 2+ peripheral pulses with 1-2+ evidence of peripheral edema and no calf tenderness noted. NEUROLOGIC patient is awake, alert and oriented 3 . . - Labs CBC & Chem 7: 08/17/18 06:01 08/18/18 06:03 Labs: Abnormal Lab Results - Last 24 Hours (Table) 08/18/18 Range/Units 06:03 Sodium 133 L (137-145) mmol/L Potassium 3.2 L (3.5-5.1) mmol/L Chloride 94 L (98-107) mmol/L Carbon Dioxide 31 H (22-30) mmol/L BUN 27 H (9-20) mg/dL Glucose 137 H (74-99) mg/dL Calcium 7.8 L (8.4-10.2) mg/dL Assessment and Plan Plan: Assessment and plan #1 diastolic congestive heart failure acute on chronic. Most recent echo was performed in May of this year which revealed an ejection fraction of 50-55%, mild to moderate stenosis of the bioprosthetic aortic valve was noted moderate pulmonary hypertension. #2 known history of coronary artery disease with prior bypass surgery and aortic valve replacement in 2013 ,patient also has history of prior cardiac stents #3 hypertension #4 hyperlipidemia #5 PVD with prior attempts at vascular stenting #6 history of nicotine dependence #7 current EtOH use daily #8 paroxysmal atrial fibrillation, on amiodarone, on Eliquis for anticoagulation Plan Patient just had an echocardiogram with Doppler study formed in May of this year which revealed an ejection fraction of 50-55%, mild to moderate stenosis of the bioprosthetic aortic valve. Subsequent to that at [facility] was performed on June 10 which revealed a thickening and calcification of the bioprosthetic aortic leaflets, they were opening fairly normally. No definite evidence to suggest any vegetations, mild aortic regurg was noted. Mild thickening of the mitral leaflets noted without any vegetations. No evidence of vegetations on the tricuspid valve and the left ventricular systolic function was documented to be normal. No evidence of thrombus. We will continue to diurese the patient, decreasing IV Lasix to 40 mg IV every 8 hourly. Continue Aldactone, metoprolol, Lipitor, consider the addition of GIULIANO inhibitor or angiotensin missael. Monitor intake and output along with daily weights and daily lytes BUN and creatinine. Further recommendations to follow. DNP note has been reviewed, I agree with a documented findings and plan of care. Patient was seen and examined.
[2018-08-18] MEDS: FUROSEMIDE 10 MG/ML 4 ML VIAL IV SCH (16:26)
[2018-08-18] MEDS: ATORVASTATIN 80 MG TAB PO SCH (21:21)
--- NOTE | 2018-08-18 22:44 | PN ---
PROGRESS NOTE DATE OF SERVICE: 08/18/2018. PRESENTING COMPLAINT: Short of breath. INTERVAL HISTORY: Patient admitted with CHF exacerbation on IV Lasix. Has made good urine. Edema is going down. Breathing is better. Did tolerate some diet. A bit tired since he has not slept well. REVIEW OF SYSTEMS: Done for constitutional, cardiovascular, GI, pulmonary; relevant findings as above. CURRENT MEDICATIONS: Reviewed, that include IV Lasix 40 mg every 8h. EXAMINATION: Temperature 97.4, pulse 72, respirations 17, blood pressure 104/55, pulse ox 93 percent on room air. GENERAL APPEARANCE: Sitting up in a chair, more awake, tired. EYES: Pupils equal. Conjunctivae normal. NECK: JVD raised. Mass not palpable. Respiratory effort increased. LUNGS: Improved air entry. CARDIOVASCULAR: 1st and 2nd heart sounds are normal. Decreased edema. ABDOMEN: Soft, nontender. Liver and spleen not palpable. PSYCHIATRY: Awake, answering questions. INVESTIGATIONS: Potassium 3.2, BUN 27, creatinine 1.0. ASSESSMENT: 1. Acute on chronic congestive heart failure exacerbation from severe diastolic dysfunction. Ejection fraction 50 to 55 percent, POA, clinically responding. 2. Hypertensive heart disease. 3. Essential hypertension. 4. Bicuspid aortic valve. Working normally per recent [place]. 5. Peripheral artery disease with prior stent. 6. Primary osteoarthritis. 7. Coronary artery disease. 8. Hyperlipidemia. 9. 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 10.Colonic diverticulosis. 11.Obesity; BMI 34.5. 12.Paroxysmal atrial fibrillation, patient on Eliquis. PLAN: Dose of Lasix has been cut back. The patient has diuresed well. Did ask the patient to take . Repeat electrolytes in the morning. Follow. MMODL / IJN: [id number] /
[2018-08-19] MEDS: FUROSEMIDE 10 MG/ML 4 ML VIAL IV SCH ×4 (00:11→23:14)
[2018-08-19 07:17] LABS: Calcium 8.3 mg/dL (8.4-10.2); Potassium 4.3 mmol/L (3.5-5.1)
[2018-08-19] MEDS: ISOSORBIDE MONONITRATE ER 15 MG TAB PO SCH (08:59)
[2018-08-19] MEDS: SPIRONOLACTONE 25 MG TAB PO SCH (08:59)
[2018-08-19] MEDS: GABAPENTIN 100 MG CAP PO SCH ×3 (08:59→20:46)
[2018-08-19] MEDS: METOPROLOL TARTRATE 25 MG TAB PO SCH ×2 (09:00→20:46)
[2018-08-19] MEDS: POTASSIUM CHLORIDE ER 20 MEQ TAB.ER PO SCH (09:00)
[2018-08-19] MEDS: APIXABAN 5 MG TAB PO SCH ×2 (09:00→20:46)
[2018-08-19] MEDS: FAMOTIDINE 20 MG TAB PO SCH ×2 (09:00→20:46)
[2018-08-19] MEDS: AMIODARONE 200 MG TAB PO SCH (09:00)
[2018-08-19] MEDS: NON-FORMULARY DRUG (Vitamin B Complex [Vitamin B Complex] 1 CAP) PO SCH (09:01)
--- NOTE | 2018-08-19 14:34 | P.PN ---
Subjective Progress Note Date: 08/19/18 This is a 68-year-old gentleman who follows regularly with Dr. VC Rodas in the office. He has a known history of hypertension, hyperlipidemia, paroxysmal atrial fibrillation, coronary artery disease with prior bypass surgery and aortic valve replacement in 2012, history of coronary stents, PAD with prior attempts at vascular stenting, daily EtOH use and prior history of smoking, presented to the hospital on this occasion with symptoms of progressively worsening shortness of breath. According to the patient, for the past one week patient states he's been progressively more and more short of breath. Positive PND and orthopnea. He states that he has not been sleeping for the past several days because of his inability to breathe that, he also states that his appetite at home has been very poor because of the shortness of breath as well. His chest x-ray on admission showed pleural effusions and cardiomegaly as well as diffuse interstitial prominence likely representing pulmonary edema. A CTA of the chest was also performed which did not show evidence of pulmonary embolism. It did show interstitial pulmonary edema, small pleural effusions, atelectasis and underlying congestive cardiac failure. Blood pressure on arrival here 132/60 with a heart rate in the 80s, 90% on room air. Blood pressure this morning 94/40, heart rate in the 60s, 94% on 3 L of oxygen. He is afebrile. White blood cell count on admission 11.8, hemoglobin 8.2, platelet count 213. D-dimer 1.3, sodium 133, potassium 4.0, BUN 26 and creatinine 1.0. Magnesium level I.5, total bilirubin 2.2, AST 65, ALT 52, alk phos 129. Initial troponin 0.68. BNP level 26,700. The patient was initiated on IV Lasix in the emergency room, he states that he's been diuresing overall quite well since his admission here however still feels considerably short of breath and extremely tired this morning. EKG shows a normal sinus rhythm with nonspecific ST-T wave changes. 08/18/2018 Patient was seen and examined this morning, overall he is diuresing well. Continues to have significant bilateral peripheral edema. We will decrease his IV Lasix to 40 mg every 8 hourly today and supplement his potassium. Sodium today 133, potassium 3.2, BUN 27 and creatinine 1.0. 08/19/2018 Patient was seen and examined this morning, blood pressure 120/60 with a heart rate in the 60s, 98% on 3 L of oxygen. Sodium 135, potassium 4.3, BUN 30 and creatinine 1.0. Objective - Vital Signs Vital signs: Vital Signs Temp 98.2 F 08/19/18 08:10 Pulse 63 08/19/18 12:00 Resp 19 08/19/18 12:00 BP 119/56 08/19/18 12:00 Pulse Ox 98 08/19/18 12:00 Intake & Output 08/18/18 08/19/18 08/19/18 18:59 06:59 18:59 Intake Total 598 Output Total 600 450 200 Balance -2 -450 -200 Weight 114.4 kg 114.4 kg Intake: Oral 598 Output: Urine 600 450 200 Other: # Voids 1 - Exam PHYSICAL EXAMINATION: GENERAL: 68-year-old gentleman in no acute distress at the time of my examination HEENT: Head is atraumatic, normocephalic. Pupils equal, round. Sclera anicteric. Conjunctiva are clear. Mucous membranes of the mouth are moist. Neck is supple. There is elevated jugular venous pressure. Bilateral carotid bruits are heard. HEART EXAMINATION: Heart S1, S2 systolic ejection murmur is heard in aortic area. CHEST EXAMINATION: Lungs reveal bilateral rales with diminished air entry to the bases bilaterally ABDOMEN: Soft, nontender. Bowel sounds are heard. No organomegaly noted. EXTREMITIES: 2+ peripheral pulses with 1+ evidence of peripheral edema and no calf tenderness noted. NEUROLOGIC patient is awake, alert and oriented 3 . . - Labs CBC & Chem 7: 08/17/18 06:01 08/19/18 06:40 Labs: Abnormal Lab Results - Last 24 Hours (Table) 08/19/18 Range/Units 06:40 Sodium 135 L (137-145) mmol/L Chloride 96 L (98-107) mmol/L Carbon Dioxide 31 H (22-30) mmol/L BUN 30 H (9-20) mg/dL Glucose 110 H (74-99) mg/dL Calcium 8.3 L (8.4-10.2) mg/dL Assessment and Plan Plan: Assessment and plan #1 diastolic congestive heart failure acute on chronic. Most recent echo was performed in May of this year which revealed an ejection fraction of 50-55%, mild to moderate stenosis of the bioprosthetic aortic valve was noted moderate pulmonary hypertension. #2 known history of coronary artery disease with prior bypass surgery and aortic valve replacement in 2012 ,patient also has history of prior cardiac stents #3 hypertension #4 hyperlipidemia #5 PVD with prior attempts at vascular stenting #6 history of nicotine dependence #7 current EtOH use daily #8 paroxysmal atrial fibrillation, on amiodarone, on Eliquis for anticoagulation Plan From cardiology's perspective, we'll recommend to continue current dose of IV Lasix. Continue to monitor intake and output along with daily weights and daily lytes BUN and creatinine. We will also add a small dose of Cozaar to the patient's medication regime. DNP note has been reviewed, I agree with a documented findings and plan of care. Patient was seen and examined.
[2018-08-19] MEDS: ATORVASTATIN 80 MG TAB PO SCH (20:46)
--- NOTE | 2018-08-19 22:58 | PN ---
PROGRESS NOTE DATE OF SERVICE: 08/19/2018 PRESENTING COMPLAINT: Short of breath. INTERVAL HISTORY: Patient with CHF exacerbation. Remains on IV Lasix. Edema has gone on. Breathing is better. Tolerating a diet. The patient looks more rested. REVIEW OF SYSTEMS: Done for constitutional, cardiovascular, GI, pulmonary; relevant findings as above. CURRENT MEDICATIONS: Reviewed. They include IV Lasix 40 mg q.8. PHYSICAL EXAMINATION: Temperature 98.2, pulse 74, respiration 18, blood pressure 117/55, pulse ox 91% on 3 L. GENERAL APPEARANCE: Sitting up, more awake. EYES: Pupils equal. Conjunctivae normal. NECK: JVD raised. Mass not palpable. RESPIRATORY: Effort increased. LUNGS: Improved air entry. CARDIOVASCULAR: First and second sounds normal. Decreased edema. ABDOMEN: Soft, non-tender. Liver and spleen not palpable. PSYCHIATRY: Awake. Answering questions appropriately. INVESTIGATIONS: Potassium 4.3, BUN 30, creatinine 1.01. ASSESSMENT: 1. Acute on chronic congestive heart failure exacerbation from severe diastolic dysfunction, ejection fraction 50% to 55%, improving. 2. Hypertensive heart disease. 3. Essential hypertension. 4. Bicuspid aortic valve working normally per recent transesophageal echocardiogram. 5. Peripheral artery disease with prior stent. 6. Primary osteoarthritis. 7. Coronary artery disease. 8. Hyperlipidemia. 9. 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 10.Colonic diverticulosis. 11.Obesity; body mass index 34.5. 12.Paroxysmal atrial fibrillation. Patient on Eliquis. PLAN: Overall doing much better. Patient has been continued on IV Lasix today. Should be able to switch over to p.o. Lasix in the morning. We will also repeat a chest x-ray in the morning. MMODL / IJN: [id number] /
[2018-08-20 06:49] LABS: Calcium 8.2 mg/dL (8.4-10.2); Magnesium 1.8 mg/dL (1.6-2.3); Potassium 3.7 mmol/L (3.5-5.1)
--- NOTE | 2018-08-20 08:12 | XR ---
EXAMINATION TYPE: XR chest 2V DATE OF EXAM: 08/20/2018 COMPARISON: 08/16/2018 INDICATION: CHF TECHNIQUE: Frontal and lateral views of the chest are obtained. FINDINGS: The heart size is mildly prominent. The pulmonary vasculature is prominent. Diffuse increased lung markings are present bilaterally. There is some increased posterior lung daiana ngs on the lateral projection. Flattening of the diaphragms is present compatible COPD. Small posteri or pleural effusions are present. This is improved on the left.. IMPRESSION: 1. Congestive heart failure. 2. Small improving left pleural effusion. 3. COPD
[2018-08-20] MEDS: POTASSIUM CHLORIDE ER 20 MEQ TAB.ER PO SCH (08:55)
[2018-08-20] MEDS: GABAPENTIN 100 MG CAP PO SCH ×3 (08:55→21:18)
[2018-08-20] MEDS: AMIODARONE 200 MG TAB PO SCH (08:56)
[2018-08-20] MEDS: FAMOTIDINE 20 MG TAB PO SCH ×2 (08:56→21:18)
[2018-08-20] MEDS: METOPROLOL TARTRATE 25 MG TAB PO SCH ×2 (08:56→21:18)
[2018-08-20] MEDS: ISOSORBIDE MONONITRATE ER 15 MG TAB PO SCH (08:56)
[2018-08-20] MEDS: SPIRONOLACTONE 25 MG TAB PO SCH (08:56)
[2018-08-20] MEDS: NON-FORMULARY DRUG (Vitamin B Complex [Vitamin B Complex] 1 CAP) PO SCH (08:57)
[2018-08-20] MEDS: APIXABAN 5 MG TAB PO SCH ×2 (08:57→21:18)
[2018-08-20] MEDS ORDERED: LOSARTAN 25 MG TAB PO SCH (09:00)
[2018-08-20] MEDS ORDERED: FUROSEMIDE 40 MG TAB PO SCH (09:00)
[2018-08-20] MEDS ORDERED: LOSARTAN 25 MG TAB PO ONE (13:15)
[2018-08-20] MEDS: FUROSEMIDE 10 MG/ML 4 ML VIAL IV SCH ×2 (13:25→21:18)
[2018-08-20 19:12] LABS: Iron Saturation 8.84 (15.00-50.00)
[2018-08-20] MEDS: ATORVASTATIN 80 MG TAB PO SCH (21:18)
--- NOTE | 2018-08-20 21:19 | PN ---
PROGRESS NOTE This patient was admitted with shortness of breath and leg edema. Patient still continues to feel short of breath. He is using oxygen at night. His urine output is borderline. He has lost 1 kg of weight. Blood pressure is 133/63 mmHg. First and second heart sounds are normal. Lungs reveal bilateral few rhonchi. Chest x-ray still shows evidence of congestive cardiac failure. In view of the persistent symptoms of shortness of breath, I will recommend to continue the patient on Lasix 40 mg IV q.12 hourly for a couple of more days and we will increase the losartan to 25 mg daily. MMODL / IJN: [id number] /
--- NOTE | 2018-08-20 23:40 | PN ---
PROGRESS NOTE DATE OF SERVICE: 08/20/2018 PRESENTING COMPLAINT: Short of breath. INTERVAL HISTORY: Patient was admitted with CHF exacerbation. Remains on IV Lasix. Patient is still quite a bit short of breath at rest, worse than yesterday. Sitting up. Tired- appearing. Cough is present. REVIEW OF SYSTEMS: Done for constitutional, cardiovascular, GI, pulmonary; relevant findings as above. Edema still present. CURRENT MEDICATIONS: Reviewed. They include Lasix 40 mg IV q.12. PHYSICAL EXAMINATION: Temperature 98, pulse 68, respiration 18, blood pressure 133/63, pulse ox 96% on 3 L. GENERAL APPEARANCE: Sitting up, short of breath. EYES: Pupils equal. Conjunctivae normal. NECK: JVD raised. Mass not palpable. RESPIRATORY: Effort increased. LUNGS: Again basal crackles. CARDIOVASCULAR: First and second sounds normal. Edema is present. ABDOMEN: Soft, non-tender. Liver and spleen not palpable. PSYCHIATRY: Alert and oriented x3. Mood and affect normal. INVESTIGATIONS: Chest x-ray film, personally reviewed by me, shows pulmonary edema with fluid in the fissure. Potassium 3.7, BUN 30, creatinine 0.99. ASSESSMENT: 1. Acute on chronic congestive heart failure exacerbation from severe diastolic dysfunction, ejection fraction 50% to 55%, again worsening. 2. Hypertensive heart disease. 3. Essential hypertension. 4. Bicuspid aortic valve, working normally per recent transesophageal echocardiogram. 5. Peripheral arterial disease with prior stent. 6. Primary osteoarthritis. 7. Coronary artery disease. 8. Hyperlipidemia. 9. 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 10.Colonic diverticulosis. 11.Obesity; body mass index of 34.5. 12.Paroxysmal atrial fibrillation, for which patient is on Eliquis. PLAN: Patient to remain on IV Lasix. Still quite short of breath. Will check patient's BNP. Patient will probably need to be in the hospital at least for a couple more nights. Will follow. MMODL / IJN: [id number] /
[2018-08-21 06:41] LABS: Calcium 8.3 mg/dL (8.4-10.2); Potassium 4.3 mmol/L (3.5-5.1)
[2018-08-21] MEDS ORDERED: LOSARTAN 25 MG TAB PO SCH (09:00)
[2018-08-21] MEDS: GABAPENTIN 100 MG CAP PO SCH ×3 (09:41→21:26)
[2018-08-21] MEDS: FUROSEMIDE 10 MG/ML 4 ML VIAL IV SCH ×2 (09:41→21:25)
[2018-08-21] MEDS: METOPROLOL TARTRATE 25 MG TAB PO SCH ×2 (09:41→21:26)
[2018-08-21] MEDS: APIXABAN 5 MG TAB PO SCH ×2 (09:41→21:26)
[2018-08-21] MEDS: FAMOTIDINE 20 MG TAB PO SCH ×2 (09:41→21:26)
[2018-08-21] MEDS: AMIODARONE 200 MG TAB PO SCH (09:41)
[2018-08-21] MEDS: POTASSIUM CHLORIDE ER 20 MEQ TAB.ER PO SCH (09:41)
[2018-08-21] MEDS: NON-FORMULARY DRUG (Vitamin B Complex [Vitamin B Complex] 1 CAP) PO SCH (09:42)
--- NOTE | 2018-08-21 11:28 | CDI ---
Documentation Clarification Form Date: 08/21/2018 10:58:41 AM From: Sue Palacios RN CCDS Admit Date: 08/16/2018 6:06:00 PM Patient Name: Catracho Brady Visit Number: [id number] Discharge Date: ATTENTION: The Clinical Documentation Specialists (CDI) and [facility] Coding Staff appreciate your assistance in clarifying documentation. Please respond to the clarification below the line at the bottom and electronically sign. The CDI & [facility] Coding staff will review the response and follow-up if needed. Please note: Queries are made part of the Legal Health Record. If you have any questions, please contact the author of this message via ITS. Dr. Jin Partida The patient presented with shortness of breath for a week progressively getting worse. History/Risk Factors: 68 year old male with a history of Congestive Heart Failure and COPD Tobacco use: nicotine dependence Clinical Indicators: Vital signs: admission 133/60 89 97.8 18 90% ra 08/17/2018 94/46 63 98.3 20 94% 3L Lung/Breathing assessment: Lungs Bibasilar crackles, Respiratory effort increased CXR Pleural effusions and cardiomegaly as well as diffuse interstitial prominence likely pulmonary edema. Consider congestive heart failure. Underlying COPD. Treatment: Lasix ivp Oxygen 2L to 3L nasal cannula In your professional opinion, can you please clarify if these findings signify one of the following conditions? * Acute Respiratory Failure (further specify (if known)): With hypercapnia? (pCO2 >50 and pH <7.35) With hypoxia? (pO2 <60 mm Hg or SpO2 <91% on room air) * Acute Respiratory Distress * Acute Respiratory Insufficiency * Other Diagnosis, please specify * Unable to determine (Last Revision: June 2017) no acute respiratory failure MTDD
[2018-08-21] MEDS: ISOSORBIDE MONONITRATE ER 15 MG TAB PO SCH (13:28)
[2018-08-21] MEDS: SPIRONOLACTONE 25 MG TAB PO SCH (13:29)
[2018-08-21] MEDS: LOSARTAN 25 MG TAB PO SCH (13:29)
--- NOTE | 2018-08-21 14:54 | PN ---
PROGRESS NOTE This patient is admitted with congestive cardiac failure. He still does not feel very good. Patient had evidence of hypotension this morning. He was asymptomatic. Blood pressure now is 122/77 mmHg. First and second heart sounds are heard. Lungs are fairly clear to auscultation and percussion. There is a trace leg edema. Chest x-ray done yesterday still showed evidence of mild heart failure. We will continue the patient on IV Lasix 40 mg b.i.d. Cozaar is decreased to 12.5 mg daily. We will ambulate the patient with a pulse oximeter and repeat the chest x-ray tomorrow. If the patient's chest x-ray shows improvement, the patient can be switched to the p.o. Lasix. MMODL / IJN: [id number] /
[2018-08-21] MEDS: ATORVASTATIN 80 MG TAB PO SCH (21:26)
[2018-08-21] MEDS: acetaZOLAMIDE 250 MG TAB PO SCH (21:26)
--- NOTE | 2018-08-21 21:32 | PN ---
PROGRESS NOTE DATE OF SERVICE: August 21, 2018. PRESENTING COMPLAINT: Short of breath. INTERVAL HISTORY: Patient admitted with CHF exacerbation on IV Lasix. Shortness of breath is better. Edema is going down. Usually gets tired. REVIEW OF SYSTEMS: Done for constitutional, cardiovascular, GI, pulmonary; relevant findings as above. CURRENT MEDICATIONS: Reviewed and include Lasix 40 mg q.12. PHYSICAL EXAMINATION: VITAL SIGNS: Temperature 96.3, pulse 72, respirations 16, blood pressure 131/90, pulse ox 92 percent on 2 L. GENERAL APPEARANCE: Sitting up, less short of breath. EYES: Pupils are equal. Conjunctivae normal. NECK: JVD raised. Mass not palpable. RESPIRATORY: Effort increased. LUNGS: Some basal crackles. CARDIOVASCULAR: First and second sounds normal. Edema present. ABDOMEN: Soft, nontender. Liver and spleen not palpable. PSYCHIATRY: Alert and oriented x3. Mood and affect normal. INVESTIGATIONS: Potassium 4.3, BUN 35, creatinine 1.43, bicarb 32. ASSESSMENT: 1. Acute on chronic congestive heart failure exacerbation from severe diastolic dysfunction. Ejection fraction 50-55 percent. 2. Hypertensive heart disease. 3. Essential hypertension. 4. Bicuspid aortic valve working normally per recent [place]. 5. Peripheral artery disease with prior stent. 6. Primary osteoarthritis. 7. Coronary artery disease. 8. Hyperlipidemia. 9. 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 10.Chronic diverticulosis. 11.Obesity; BMI 34.5. 12.Paroxysmal atrial fibrillation for which patient is on Eliquis. 13.Acute renal failure from diuresis. 14.Metabolic alkalosis. PLAN: Continue on IV Lasix. We will add some Diamox. Repeat labs in the morning. MMODL / IJN: [id number] /
[2018-08-22 07:00] LABS: Calcium 8.2 mg/dL (8.4-10.2); Potassium 4.2 mmol/L (3.5-5.1)
--- NOTE | 2018-08-22 09:08 | XR ---
EXAMINATION TYPE: XR chest 2V DATE OF EXAM: 08/22/2018 HISTORY: f/u chf. REFERENCE: Previous study dated 08/20/2018. FINDINGS: There is been a previous midline sternotomy. The lungs are overinflated. Heart size is upper limits of normal. There is some chronic interstitial change present. There has developed some confluent airspace disease at the lung bases. I suspect smal l effusions. IMPRESSION: FINDINGS CONSISTENT WITH CONGESTIVE HEART FAILURE SUPERIMPOSED UPON ABNORMAL LUNG ARCHITECTURE.
[2018-08-22] MEDS: METOPROLOL TARTRATE 25 MG TAB PO SCH ×2 (09:22→21:00)
[2018-08-22] MEDS: APIXABAN 5 MG TAB PO SCH ×2 (09:22→21:01)
[2018-08-22] MEDS: POTASSIUM CHLORIDE ER 20 MEQ TAB.ER PO SCH (09:22)
[2018-08-22] MEDS: SPIRONOLACTONE 25 MG TAB PO SCH (09:22)
[2018-08-22] MEDS: LOSARTAN 25 MG TAB PO SCH (09:22)
[2018-08-22] MEDS: FAMOTIDINE 20 MG TAB PO SCH ×2 (09:22→21:01)
[2018-08-22] MEDS: FUROSEMIDE 10 MG/ML 4 ML VIAL IV SCH ×2 (09:22→18:29)
[2018-08-22] MEDS: GABAPENTIN 100 MG CAP PO SCH ×3 (09:22→21:00)
[2018-08-22] MEDS: acetaZOLAMIDE 250 MG TAB PO SCH (09:22)
[2018-08-22] MEDS: AMIODARONE 200 MG TAB PO SCH (09:22)
[2018-08-22] MEDS: NON-FORMULARY DRUG (Vitamin B Complex [Vitamin B Complex] 1 CAP) PO SCH (09:23)
--- NOTE | 2018-08-22 14:03 | P.PN ---
Subjective Progress Note Date: 08/22/18 This is a 68-year-old gentleman who follows regularly with Dr. VC Rodas in the office. He has a known history of hypertension, hyperlipidemia, paroxysmal atrial fibrillation, coronary artery disease with prior bypass surgery and aortic valve replacement in 2012, history of coronary stents, PAD with prior attempts at vascular stenting, daily EtOH use and prior history of smoking, presented to the hospital on this occasion with symptoms of progressively worsening shortness of breath. According to the patient, for the past one week patient states he's been progressively more and more short of breath. Positive PND and orthopnea. He states that he has not been sleeping for the past several days because of his inability to breathe that, he also states that his appetite at home has been very poor because of the shortness of breath as well. His chest x-ray on admission showed pleural effusions and cardiomegaly as well as diffuse interstitial prominence likely representing pulmonary edema. A CTA of the chest was also performed which did not show evidence of pulmonary embolism. It did show interstitial pulmonary edema, small pleural effusions, atelectasis and underlying congestive cardiac failure. Blood pressure on arrival here 132/60 with a heart rate in the 80s, 90% on room air. Blood pressure this morning 94/40, heart rate in the 60s, 94% on 3 L of oxygen. He is afebrile. White blood cell count on admission 11.8, hemoglobin 8.2, platelet count 213. D-dimer 1.3, sodium 133, potassium 4.0, BUN 26 and creatinine 1.0. Magnesium level I.5, total bilirubin 2.2, AST 65, ALT 52, alk phos 129. Initial troponin 0.68. BNP level 26,700. The patient was initiated on IV Lasix in the emergency room, he states that he's been diuresing overall quite well since his admission here however still feels considerably short of breath and extremely tired this morning. EKG shows a normal sinus rhythm with nonspecific ST-T wave changes. 08/18/2018 Patient was seen and examined this morning, overall he is diuresing well. Continues to have significant bilateral peripheral edema. We will decrease his IV Lasix to 40 mg every 8 hourly today and supplement his potassium. Sodium today 133, potassium 3.2, BUN 27 and creatinine 1.0. 08/19/2018 Patient was seen and examined this morning, blood pressure 120/60 with a heart rate in the 60s, 98% on 3 L of oxygen. Sodium 135, potassium 4.3, BUN 30 and creatinine 1.0. 08/22/2018 The patient was seen and examined this morning, overall he doesn't feel as though he's improving much. Chest x-ray from this morning shows COPD, improving left basilar airspace disease and small left-sided pleural effusion. IV Lasix was discontinued by nephrology and patient was changed to oral diuretics. BUN 97 creatinine 2.0 today. Objective - Vital Signs Vital signs: Vital Signs Temp 97.1 F L 08/22/18 08:00 Pulse 78 08/22/18 08:00 Resp 22 08/22/18 04:15 BP 103/53 08/22/18 08:00 Pulse Ox 94 L 08/22/18 08:00 Intake & Output 08/21/18 08/22/18 08/22/18 18:59 06:59 18:59 Intake Total 600 1120 240 Output Total 675 900 Balance 600 445 -660 Weight 115 kg 114.8 kg Intake: Oral 600 1120 240 Output: Urine 675 900 Other: Voiding Method Toilet # Voids 1 - Exam PHYSICAL EXAMINATION: GENERAL: 68-year-old gentleman in no acute distress at the time of my examination HEENT: Head is atraumatic, normocephalic. Pupils equal, round. Sclera anicteric. Conjunctiva are clear. Mucous membranes of the mouth are moist. Neck is supple. There is elevated jugular venous pressure. Bilateral carotid bruits are heard. HEART EXAMINATION: Heart S1, S2 systolic ejection murmur is heard in aortic area. CHEST EXAMINATION: Lungs reveal bilateral rales with diminished air entry to the bases bilaterally ABDOMEN: Soft, nontender. Bowel sounds are heard. No organomegaly noted. EXTREMITIES: 2+ peripheral pulses with 1+ evidence of peripheral edema and no calf tenderness noted. NEUROLOGIC patient is awake, alert and oriented 3 . . - Labs CBC & Chem 7: 08/17/18 06:01 08/22/18 06:05 Labs: Abnormal Lab Results - Last 24 Hours (Table) 08/22/18 Range/Units 06:05 Sodium 133 L (137-145) mmol/L Chloride 97 L (98-107) mmol/L BUN 38 H (9-20) mg/dL Creatinine 1.48 H (0.66-1.25) mg/dL Glucose 116 H (74-99) mg/dL Calcium 8.2 L (8.4-10.2) mg/dL Assessment and Plan Plan: Assessment and plan #1 diastolic congestive heart failure acute on chronic. Most recent echo was performed in May of this year which revealed an ejection fraction of 50-55%, mild to moderate stenosis of the bioprosthetic aortic valve was noted moderate pulmonary hypertension. #2 known history of coronary artery disease with prior bypass surgery and aortic valve replacement in 2012 ,patient also has history of prior cardiac stents #3 hypertension #4 hyperlipidemia #5 PVD with prior attempts at vascular stenting #6 history of nicotine dependence #7 current EtOH use daily #8 paroxysmal atrial fibrillation, on amiodarone, on Eliquis for anticoagulation Plan IV Lasix was discontinued by nephrology and patient was placed on oral diuretics. Continue to observe the patient for 24 hours. DNP note has been reviewed, I agree with a documented findings and plan of care. Patient was seen and examined.
[2018-08-22] MEDS: ATORVASTATIN 80 MG TAB PO SCH (21:00)
[2018-08-23] MEDS: FUROSEMIDE 10 MG/ML 4 ML VIAL IV SCH ×3 (00:59→17:42)
[2018-08-23 06:54] LABS: Calcium 8.6 mg/dL (8.4-10.2)
[2018-08-23] MEDS: POTASSIUM CHLORIDE ER 20 MEQ TAB.ER PO SCH (09:15)
[2018-08-23] MEDS: APIXABAN 5 MG TAB PO SCH ×2 (09:15→20:25)
[2018-08-23] MEDS: acetaZOLAMIDE 250 MG TAB PO SCH (09:15)
[2018-08-23] MEDS: SPIRONOLACTONE 25 MG TAB PO SCH (09:15)
[2018-08-23] MEDS: FAMOTIDINE 20 MG TAB PO SCH ×2 (09:15→20:24)
[2018-08-23] MEDS: METOPROLOL TARTRATE 25 MG TAB PO SCH (09:15)
[2018-08-23] MEDS: AMIODARONE 200 MG TAB PO SCH (09:15)
[2018-08-23] MEDS: GABAPENTIN 100 MG CAP PO SCH ×2 (09:15→17:42)
[2018-08-23] MEDS: LOSARTAN 25 MG TAB PO SCH (09:15)
[2018-08-23] MEDS: NON-FORMULARY DRUG (Vitamin B Complex [Vitamin B Complex] 1 CAP) PO SCH (09:16)
--- NOTE | 2018-08-23 15:57 | P.PN ---
Subjective Progress Note Date: 08/23/18 This is a 68-year-old gentleman with history of hypertension, hyperlipidemia, paroxysmal atrial fibrillation, coronary artery disease and previous bypass surgery and also aortic valve replacement in 2013. Patient also has peripheral vascular disease and coronary artery stent placement. He is admitted to the hospital with increasing shortness of breath and pedal edema. Patient claims that he's not feeling as well. Yesterday, it was felt that patient could be changed to by mouth Lasix. However because of continued symptoms patient is maintained on IV Lasix. Patient still has some edema. I'll continue current medical therapy including IV Lasix. We'll follow his electrolytes Objective - Vital Signs Vital signs: Vital Signs Temp 97.8 F 08/23/18 08:00 Pulse 82 08/23/18 12:00 Resp 22 08/23/18 05:25 BP 105/64 08/23/18 12:00 Pulse Ox 91 L 08/23/18 12:10 Intake & Output 08/22/18 08/23/18 08/23/18 18:59 06:59 18:59 Intake Total 920 780 340 Output Total 900 900 Balance 20 -120 340 Weight 114.3 kg Intake: Oral 920 780 340 Output: Urine 900 900 Other: Voiding Method Toilet # Voids 1 - Exam GENERAL EXAM: Patient is alert and oriented and doesn't appear to be in any acute distress HEENT: Normocephalic. Normal reaction of pupils, equal size, normal range of extraocular motion. No erythema or exudates in the throat. NECK: No masses, no nuchal rigidity. CHEST: No chest wall deformity. LUNGS: Equal air entry with no crackles or wheeze. HEART: S1 and S2 normal with no audible mumurs or gallops. Regular rhythm, femo rals equal on both sides.. ABDOMEN: No hepatosplenomegaly, normal bowel sounds, no guarding or rigidity. SKIN: No rashes CENTRAL NERVOUS SYSTEM: No focal deficits. EXTREMITIES: Edema of the legs - Labs CBC & Chem 7: 08/17/18 06:01 08/23/18 06:11 Labs: Abnormal Lab Results - Last 24 Hours (Table) 08/23/18 Range/Units 06:11 Sodium 135 L (137-145) mmol/L BUN 36 H (9-20) mg/dL Creatinine 1.47 H (0.66-1.25) mg/dL Glucose 105 H (74-99) mg/dL Assessment and Plan (1) Acute on chronic diastolic CHF (congestive heart failure) Current Visit: Yes Status: Acute Code(s): I50.33 - ACUTE ON CHRONIC D IASTOLIC (CONGESTIVE) HEART FAILURE SNOMED Code(s): 470354959 (2) HTN (hypertension) Current Visit: No Status: Acute Code(s): I10 - ESSENTIAL (PRIMARY) HYPERTENSION SNOMED Code(s): 22721073 (3) Hx of CABG Current Visit: No Status: Acute Code(s): Z95.1 - PRESENCE OF AORTOCORONARY BYPASS GRAFT SNOMED Code(s): 737216106 (4) Renal failure Current Visit: No Status: Acute Code(s): N19 - UNSPECIFIED KIDNEY FAILURE SNOMED Code(s): 43278383 (5) History of aortic valve replacement using [place] procedure Current Visit: Yes Status: Acute Code(s): Z95.2 - PRESENCE OF PROSTHETIC HEART VALVE SNOMED Code(s): 7212499269335 (6) History of aortic valve replacement Current Visit: Yes Status: Acute Code(s): Z95.2 - PRESENCE OF PROSTHETIC HEART VALVE SNOMED Code(s): 9212005085284 (7) Hx of aortic valve replacement Current Visit: No Status: Acute Code(s): Z95.2 - PRESENCE OF PROSTHETIC HEART VALVE SNOMED Code(s): 6928703197257 Plan: Continue current medical therapy including IV Lasix for 24 hours. Further r ecommendations depend upon the clinical course
[2018-08-23] MEDS: ATORVASTATIN 80 MG TAB PO SCH (20:24)
[2018-08-24] MEDS: GABAPENTIN 100 MG CAP PO SCH ×4 (00:02→21:45)
[2018-08-24] MEDS: FUROSEMIDE 10 MG/ML 4 ML VIAL IV SCH ×4 (00:02→21:45)
[2018-08-24] MEDS: METOPROLOL TARTRATE 25 MG TAB PO SCH ×3 (00:06→21:46)
--- NOTE | 2018-08-24 05:21 | PN ---
PROGRESS NOTE DATE OF SERVICE: 08/22/2018 PRESENTING COMPLAINT: Short of breath. INTERVAL HISTORY: Patient was seen by me yesterday. Admitted with CHF exacerbation. Remains on IV Lasix. Still short of breath. At present, only a shade better. Edema is slowly getting better. Making good urine. Tired. REVIEW OF SYSTEMS: Done for constitutional, cardiovascular, GI, pulmonary; relevant findings as above. CURRENT MEDICATIONS: Current medications are reviewed that include IV Lasix. PHYSICAL EXAMINATION: On examination, temperature 97.1, pulse 78, respirations 16, blood pressure 103/53, pulse ox 94% on 2 L. GENERAL APPEARANCE: Sitting up, tired. EYES: Pupils equal. Conjunctivae normal. NECK: JVD unable to assess. Mass not palpable. RESPIRATORY: Effort increased. LUNGS: Decreased breath sounds. Some crackles. CARDIOVASCULAR: First and second sounds normal. Edema present. ABDOMEN: Soft, nontender. Liver and spleen not palpable. PSYCHIATRY: Alert and oriented x3. Mood and affect normal. INVESTIGATIONS: Potassium 4.2, BUN 38, creatinine 1.48. ASSESSMENT: 1. Acute on chronic congestive heart failure exacerbation from severe diastolic dysfunction, ejection fraction 50% to 55%, slow to respond. 2. Hypertensive heart disease. 3. Essential hypertension. 4. Bicuspid aortic valve working normally per recent [place]. 5. Peripheral arterial disease with prior stent. 6. Primary osteoarthritis. 7. Coronary artery disease. 8. Hyperlipidemia. 9. 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 10.Chronic diverticulosis. 11.Obesity; body mass index 34.5. 12.Paroxysmal atrial fibrillation for which patient is on Eliquis. 13.Acute renal failure, prerenal from diuresis. 14.Metabolic alkalosis. PLAN: The patient remains on IV Lasix. Continue current medication and treatment plan. Care was discussed with the patient. Keep a close eye on the electrolytes. The patient still is fluid overloaded. MMODL / IJN: [id number] /
--- NOTE | 2018-08-24 05:33 | PN ---
PROGRESS NOTE DATE OF SERVICE: 08/23/2018 PRESENTING COMPLAINT: Short of breath. INTERVAL HISTORY: Patient admitted with CHF exacerbation. Remains on IV Lasix. Feeling tired. Tolerating some diet. Breathing has improved from before. REVIEW OF SYSTEMS: Done for constitutional, cardiovascular, GI, pulmonary; relevant findings as above. CURRENT MEDICATIONS: Current medications are reviewed that include IV Lasix 40 mg q.8. PHYSICAL EXAMINATION: On examination, temperature 97.8, pulse 82, respiration 18, blood pressure 104/67, pulse ox 92% on 2 L. GENERAL APPEARANCE: Sitting up, less short of breath. EYES: Pupils equal. Conjunctivae normal. NECK: JVD unable to assess. Mass not palpable. RESPIRATORY: Effort increased. LUNGS: Decreased breath sounds. CARDIOVASCULAR: First and second sounds normal. Decreased edema. ABDOMEN: Soft, nontender. Liver and spleen not palpable. PSYCHIATRY: Alert and oriented x3. Mood and affect slightly low appearing. INVESTIGATIONS: Potassium 4, BUN 36, creatinine 1.47. ProBNP was 15,400 from yesterday. Chest x-ray film from yesterday was reviewed by me shows pulmonary edema. ASSESSMENT: 1. Acute on chronic congestive heart failure exacerbation from severe diastolic dysfunction, ejection fraction 50% to 55%, improving. 2. Hypertensive heart disease. 3. Essential hypertension. 4. Bicuspid aortic valve working normally per recent [place]. 5. Peripheral arterial disease, prior stent. 6. Primary osteoarthritis. 7. Coronary artery disease. 8. Hyperlipidemia. 9. Zhu's esophagus from alcoholism. 10.Chronic diverticulosis. 11.Obesity; body mass index 34.5. 12.Paroxysmal atrial fibrillation for which patient is on Eliquis. 13.Acute renal failure from diuretics. 14.Metabolic alkalosis. PLAN: Continue current medication and treatment plan. Patient remains on IV Lasix, Diamox. Other medication and treatment plan is to continue. Follow with Cardiology. MMODL / IJN: [id number] /
[2018-08-24] MEDS: NON-FORMULARY DRUG (Vitamin B Complex [Vitamin B Complex] 1 CAP) PO SCH (09:16)
[2018-08-24] MEDS: LOSARTAN 25 MG TAB PO SCH (09:29)
[2018-08-24] MEDS: SPIRONOLACTONE 25 MG TAB PO SCH (09:29)
[2018-08-24] MEDS: FAMOTIDINE 20 MG TAB PO SCH ×2 (09:29→21:45)
[2018-08-24] MEDS: POTASSIUM CHLORIDE ER 20 MEQ TAB.ER PO SCH (09:29)
[2018-08-24] MEDS: acetaZOLAMIDE 250 MG TAB PO SCH (09:29)
[2018-08-24] MEDS: AMIODARONE 200 MG TAB PO SCH (09:29)
[2018-08-24] MEDS: APIXABAN 5 MG TAB PO SCH ×2 (09:30→21:45)
--- NOTE | 2018-08-24 14:37 | P.PN ---
Subjective Progress Note Date: 08/24/18 This is a 68-year-old gentleman who follows regularly with Dr. VC Rodas in the office. He has a known history of hypertension, hyperlipidemia, paroxysmal atrial fibrillation, coronary artery disease with prior bypass surgery and aortic valve replacement in 2012, history of coronary stents, PAD with prior attempts at vascular stenting, daily EtOH use and prior history of smoking, presented to the hospital on this occasion with symptoms of progressively worsening shortness of breath. According to the patient, for the past one week patient states he's been progressively more and more short of breath. Positive PND and orthopnea. He states that he has not been sleeping for the past several days because of his inability to breathe that, he also states that his appetite at home has been very poor because of the shortness of breath as well. His chest x-ray on admission showed pleural effusions and cardiomegaly as well as diffuse interstitial prominence likely representing pulmonary edema. A CTA of the chest was also performed which did not show evidence of pulmonary embolism. It did show interstitial pulmonary edema, small pleural effusions, atelectasis and underlying congestive cardiac failure. Blood pressure on arrival here 132/60 with a heart rate in the 80s, 90% on room air. Blood pressure this morning 94/40, heart rate in the 60s, 94% on 3 L of oxygen. He is afebrile. White blood cell count on admission 11.8, hemoglobin 8.2, platelet count 213. D-dimer 1.3, sodium 133, potassium 4.0, BUN 26 and creatinine 1.0. Magnesium level I.5, total bilirubin 2.2, AST 65, ALT 52, alk phos 129. Initial troponin 0.68. BNP level 26,700. The patient was initiated on IV Lasix in the emergency room, he states that he's been diuresing overall quite well since his admission here however still feels considerably short of breath and extremely tired this morning. EKG shows a normal sinus rhythm with nonspecific ST-T wave changes. 08/18/2018 Patient was seen and examined this morning, overall he is diuresing well. Continues to have significant bilateral peripheral edema. We will decrease his IV Lasix to 40 mg every 8 hourly today and supplement his potassium. Sodium today 133, potassium 3.2, BUN 27 and creatinine 1.0. 08/19/2018 Patient was seen and examined this morning, blood pressure 120/60 with a heart rate in the 60s, 98% on 3 L of oxygen. Sodium 135, potassium 4.3, BUN 30 and creatinine 1.0. 08/22/2018 The patient was seen and examined this morning, overall he doesn't feel as though he's improving much. Chest x-ray from this morning shows COPD, improving left basilar airspace disease and small left-sided pleural effusion. IV Lasix was discontinued by nephrology and patient was changed to oral diuretics. BUN 97 creatinine 2.0 today. 08/24/2018 Patient was seen and examined today, he does state for the first day that he is actually feeling somewhat better.blood pressure 118/56 with a heart rate of 80, 98% on 2 L of oxygen. Sodium 135, potassium 4.0, BUN 36 and creatinine 1.4. Objective - Vital Signs Vital signs: Vital Signs Temp 97.3 F L 08/24/18 11:51 Pulse 81 08/24/18 11:51 Resp 18 08/24/18 11:51 BP 117/56 08/24/18 11:51 Pulse Ox 98 08/24/18 11:51 Intake & Output 08/23/18 08/24/18 08/24/18 18:59 06:59 18:59 Intake Total 680 120 680 Output Total 200 900 Balance 680 -80 -220 Weight 112.8 kg Intake: Oral 680 120 680 Output: Urine 200 900 Other: Voiding Method Toilet Toilet # Voids 1 - Exam PHYSICAL EXAMINATION: GENERAL: 68-year-old gentleman in no acute distress at the time of my examination HEENT: Head is atraumatic, normocephalic. Pupils equal, round. Sclera anicteric. Conjunctiva are clear. Mucous membranes of the mouth are moist. Neck is supple. There is elevated jugular venous pressure. Bilateral carotid bruits are heard. HEART EXAMINATION: Heart S1, S2 systolic ejection murmur is heard in aortic area. CHEST EXAMINATION: Lungs reveal bilateral rales with diminished air entry to the bases bilaterally ABDOMEN: Soft, nontender. Bowel sounds are heard. No organomegaly noted. EXTREMITIES: 2+ peripheral pulses with 1+ evidence of peripheral edema and no calf tenderness noted. NEUROLOGIC patient is awake, alert and oriented 3 . . - Labs CBC & Chem 7: 08/17/18 06:01 08/23/18 06:11 Assessment and Plan Plan: Assessment and plan #1 diastolic congestive heart failure acute on chronic. Most recent echo was performed in May of this year which revealed an ejection fraction of 50-55%, mild to moderate stenosis of the bioprosthetic aortic valve was noted moderate pulmonary hypertension. #2 known history of coronary artery disease with prior bypass surgery and aortic valve replacement in 2012 ,patient also has history of prior cardiac stents #3 hypertension #4 hyperlipidemia #5 PVD with prior attempts at vascular stenting #6 history of nicotine dependence #7 current EtOH use daily #8 paroxysmal atrial fibrillation, on amiodarone, on Eliquis for anticoagulation Plan continue IV Lasix for 24 hours, repeat a chest x-ray. DNP note has been reviewed, I agree with a documented findings and plan of care. Patient was seen and examined.
--- NOTE | 2018-08-24 17:46 | XR ---
EXAMINATION TYPE: XR chest 2V DATE OF EXAM: 08/24/2018 COMPARISON: 08/22/2018 HISTORY: 68-year-old male follow-up CHF TECHNIQUE: AP and lateral views FINDINGS: Median sternotomy wires. Heart mildly enlarged. Hyperinflation. Diffuse interstitial opacities with s mall effusions persist. Aeration may be minimally improved in the mid and lower lungs. IMPRESSION: CHF with mild interstitial pulmonary edema and small effusions. Minimal improvement in aeration in th e mid and lower lungs.
[2018-08-24] MEDS: ATORVASTATIN 80 MG TAB PO SCH (21:45)
[2018-08-25 01:35] LABS: HCT 29.6 % (39.0-53.0); Hypochromasia Moderate; MCHC 30.6 g/dL (31.0-37.0); MCV 94.9 fL (80.0-100.0); Mean Platelet Volume 7.1; Platelet Count 320 k/uL (150-450); RBC 3.12 m/uL (4.30-5.90); RDW 15.9 % (11.5-15.5)
--- NOTE | 2018-08-25 06:04 | PN ---
PROGRESS NOTE DATE OF SERVICE: 08/24/2018 PRESENTING COMPLAINT: Short of breath. INTERVAL HISTORY: Patient admitted with CHF exacerbation, remains on IV Lasix. Being followed by Cardiology. Edema is slowly getting down. Patient does feel a bit low. Oral intake is somewhat low. REVIEW OF SYSTEMS: Done for constitutional, cardiovascular, GI, pulmonary; relevant findings as above. Does feel a bit low. CURRENT MEDICATIONS: Current medications are reviewed that include Lasix 40 mg q.8. PHYSICAL EXAMINATION: On examination, temperature 97, pulse 67, respiration 20, blood pressure 113/50, pulse ox 97% on 2 L. GENERAL APPEARANCE: Sitting up, low appearing. EYES: Pupils equal. Conjunctivae normal. NECK: JVD not raised. Mass not palpable. RESPIRATORY: Effort increased. LUNGS: Decreased breath sounds. CARDIOVASCULAR: First and second sounds normal. Edema decreased. ABDOMEN: Soft, nontender. Liver and spleen not palpable. PSYCHIATRY: Alert and oriented x3. Mood and affect appears low . INVESTIGATIONS: No blood work from today. ASSESSMENT: 1. Acute on chronic congestive heart failure exacerbation from severe diastolic dysfunction, ejection fraction 50% to 55%, slowly improving. 2. Hypertensive heart disease. 3. Essential hypertension. 4. Bicuspid aortic valve working normally per recent [place]. 5. Peripheral arterial disease, prior stent. 6. Primary osteoarthritis. 7. Coronary artery disease. 8. Hyperlipidemia. 9. Zhu's esophagus from prior history of alcoholism. 10.Chronic colonic diverticulosis. 11.Obesity; body mass index 34.5. 12.Paroxysmal atrial fibrillation for which patient is on Eliquis. 13.Acute renal failure from diuretics. 14.Metabolic alkalosis. PLAN: Discussed with the patient this morning, as patient is feeling low will get a psychiatry opinion. Lasix to continue as per Cardiology. Follow electrolytes closely. MMODL / IJN: [id number] /
[2018-08-25 08:00] LABS: Anisocytosis Slight; HCT 28.4 % (39.0-53.0); Hypochromasia Marked; MCH 29.8 pg (25.0-35.0); MCHC 31.7 g/dL (31.0-37.0); MCV 94.2 fL (80.0-100.0); Mean Platelet Volume 7.7; Platelet Count 323 k/uL (150-450); RBC 3.02 m/uL (4.30-5.90); RDW 16.1 % (11.5-15.5); WBC 11.3 k/uL (3.8-10.6)
[2018-08-25] MEDS: LOSARTAN 25 MG TAB PO SCH (08:06)
[2018-08-25] MEDS: acetaZOLAMIDE 250 MG TAB PO SCH (08:06)
[2018-08-25] MEDS: FUROSEMIDE 10 MG/ML 4 ML VIAL IV SCH ×2 (08:06→15:42)
[2018-08-25] MEDS: SPIRONOLACTONE 25 MG TAB PO SCH (08:07)
[2018-08-25] MEDS: AMIODARONE 200 MG TAB PO SCH (08:07)
[2018-08-25] MEDS: METOPROLOL TARTRATE 25 MG TAB PO SCH ×2 (08:08→19:59)
[2018-08-25] MEDS: FAMOTIDINE 20 MG TAB PO SCH ×2 (08:08→19:59)
[2018-08-25] MEDS: GABAPENTIN 100 MG CAP PO SCH ×3 (08:10→19:59)
[2018-08-25] MEDS: POTASSIUM CHLORIDE ER 20 MEQ TAB.ER PO SCH (08:10)
[2018-08-25] MEDS: NON-FORMULARY DRUG (Vitamin B Complex [Vitamin B Complex] 1 CAP) PO SCH (08:11)
[2018-08-25 08:16] LABS: Albumin 3.2 g/dL (3.5-5.0); Calcium 8.6 mg/dL (8.4-10.2); Total Bilirubin 1.5 mg/dL (0.2-1.3); Total Protein 6.7 g/dL (6.3-8.2)
[2018-08-25] MEDS: APIXABAN 5 MG TAB PO SCH (09:22)
[2018-08-25 12:57] LABS: Anisocytosis Slight; HCT 25.1 % (39.0-53.0); HGB 7.9 gm/dL (13.0-17.5); Hypochromasia Slight; MCH 29.2 pg (25.0-35.0); MCHC 31.5 g/dL (31.0-37.0); MCV 92.5 fL (80.0-100.0); Mean Platelet Volume 7.2; Platelet Count 338 k/uL (150-450); RBC 2.71 m/uL (4.30-5.90); RDW 16.1 % (11.5-15.5); WBC 13.2 k/uL (3.8-10.6)
--- NOTE | 2018-08-25 13:07 | P.CONS ---
History of Present Illness - Reason for Consult Consult date: 08/25/18 Gi bleed Requesting physician: Jin Partida - Chief Complaint short of breath - History of Present Illness 68 y/o male admitted 08/16/18 shortness of breath CHF exacerbation. Consult for painless rectal bleeding last night. PMH anemia, GI bleed 2018, ETOH abuse, Barretts, PAF maintained on ELIQUIS, skin carcinoma, HTN, hyperlipidemia, ME, CABG/AVR bioprosthetic, PVD, CHF. Large burgundy BM x 1 this morning. Denies hematemesis coffee ground emesis or melena. EGD/colonoscopy 04/2017 evaluation of symptomatic anemia w/ melena showed gastritis, short segment of Jin's, no varices, and moderate sigmoid diverticulosis. Polypectomy x 6 biopsies TA and Barretts negative for dysplasia. Follow up small bowel capsule endoscopy identified active bleeding angiectasias in the proximal small bowel. Enteroscopy reached to the targeted areas without evidence of active bleeding. Admission hemoglobin 8.9. presently 7.9. MCV 90's. Platelet 338. BUN on admission 28 increased to 43. INR / was 1.3. Past Medical History Past Medical History: Atrial Fibrillation, Cancer, COPD, GI Bleed, Hyperlipidemia, Hypertension, Myocardial Infarction (ME), Osteoarthritis (OA), Vascular Disorder Additional Past Medical History / Comment(s): PVD, BACK PAIN, SWELLING IN ANKLES AND FEET, hx SKIN CANCER Last Myocardial Infarction Date:: 01-20-13 History of Any Multi-Drug Resistant Organisms: None Reported Past Surgical History: Heart Catheterization, Heart Catheterization With Stent Additional Past Surgical History / Comment(s): aortic valve replacement 2012, aortogram, pt states 2 failed stent replacement-1 to each leg, PAIN CLINIC PROCEDURES, ABDOMINAL AORTOGRAM, Stent in right leg Past Anesthesia/Blood Transfusion Reactions: No Reported Reaction Date of Last Stent Placement:: 05/30/15 Past Psychological History: No Psychological Hx Reported Smoking Status: Former smoker Past Alcohol Use History: None Reported Additional Past Alcohol Use History / Comment(s): Quit smoking October 2014, smoked for >50 yrs. Patient drinks 9-10 beers per day and quit 3 weeks ago. He is currently living alone. No pets in the home. 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 He was in the [employer] stationed in [id number]. He denies any travel. Past Drug Use History: None Reported - Past Family History Mother Family Medical History: Deep Vein Thrombosis (DVT) Medications and Allergies Home Medications Medication Instructions Recorded Confirmed Type Atorvastatin [Lipitor] 80 mg PO HS 10/06/14 08/16/18 History Metoprolol Tartrate [Lopressor] 25 mg PO BID 10/06/14 08/16/18 History [place]-3 Fatty Acids/Fish Oil [Fish 1 cap PO DAILY 10/06/14 08/16/18 History Oil 1,000 mg Softgel] Nitroglycerin Sl Tabs [Nitrostat] 0.4 mg SUBLINGUAL Q5M PRN #25 tab 05/14/15 08/16/18 Rx Amiodarone HCl [Pacerone] 200 mg PO DAILY 06/27/16 08/16/18 History Apixaban [Eliquis] 5 mg PO BID 09/24/17 08/16/18 History Ranitidine HCl [Zantac] 150 mg PO BID 05/30/18 08/16/18 History Vitamin B Complex 1 cap PO DAILY 06/07/18 08/16/18 History Furosemide [Lasix] 40 mg PO DAILY tab 06/15/18 08/16/18 Rx Gabapentin [Neurontin] 100 mg PO TID #9 cap 06/15/18 08/16/18 Rx HYDROcodone/APAP 5-325MG [[place] 1 tab PO TID PRN 08/16/18 08/16/18 History 5-325] Isosorbide Mononitrate ER [Imdur] 15 mg PO DAILY 08/16/18 08/16/18 History Spironolactone 50 mg PO DAILY 08/16/18 08/16/18 History Allergies Allergy/AdvReac Type Severity Reaction Status Date / Time No Known Allergies Allergy Verified 08/16/18 14:42 Physical Exam Vitals: Vital Signs Temp Pulse Resp BP BP Pulse Ox 08/25/18 11:43 97.8 F 63 18 92/41 95 08/25/18 07:54 98.0 F 79 18 117/98 94 L 08/25/18 03:20 97.9 F 67 19 95/46 98 08/25/18 00:58 97.6 F 69 18 111/53 95 08/24/18 23:57 97.2 F L 64 18 103/55 96 08/24/18 20:27 98.3 F 63 19 100/61 95 08/24/18 19:35 98 08/24/18 16:17 97.0 F L 67 20 113/50 97 08/24/18 16:16 81 18 Intake and Output 08/24/18 08/25/18 08/25/18 22:59 06:59 14:59 Intake Total 360 544 Balance 360 544 Intake: Oral 360 544 Other: Voiding Method Toilet # Voids 0 1 # Bowel Movements 1 Weight 111.2 kg - Constitutional General appearance: average body habitus - EENT Eyes: normal appearance Ears: bilateral: normal - Neck Neck: normal ROM - Respiratory Respiratory: bilateral: CTA - Cardiovascular Heart sounds: normal: S1, S2 - Gastrointestinal nontender General gastrointestinal: soft - Integumentary Integumentary: normal - Psychiatric Psychiatric: A&O x's 3 Results CBC & Chem 7: 08/26/18 06:21 08/26/18 06:21 Labs: Abnormal Lab Results - Last 24 Hours (Table) 08/25/18 08/25/18 08/25/18 Range/Units 01:25 07:03 07:03 WBC 11.3 H (3.8-10.6) k/uL RBC 3.12 L 3.02 L (4.30-5.90) m/uL Hgb 9.0 L 9.0 L (13.0-17.5) gm/dL Hct 29.6 L 28.4 L (39.0-53.0) % MCHC 30.6 L (31.0-37.0) g/dL RDW 15.9 H 16.1 H (11.5-15.5) % BUN 43 H (9-20) mg/dL Creatinine 1.68 H (0.66-1.25) mg/dL Glucose 103 H (74-99) mg/dL Total Bilirubin 1.5 H (0.2-1.3) mg/dL AST 66 H (17-59) U/L ALT 100 H (21-72) U/L Ammonia (<30) umol/L Albumin 3.2 L (3.5-5.0) g/dL 08/25/18 08/25/18 Range/Units 07:03 12:34 WBC 13.2 H (3.8-10.6) k/uL RBC 2.71 L (4.30-5.90) m/uL Hgb 7.9 L (13.0-17.5) gm/dL Hct 25.1 L (39.0-53.0) % MCHC (31.0-37.0) g/dL RDW 16.1 H (11.5-15.5) % BUN (9-20) mg/dL Creatinine (0.66-1.25) mg/dL Glucose (74-99) mg/dL Total Bilirubin (0.2-1.3) mg/dL AST (17-59) U/L ALT (21-72) U/L Ammonia 49 H (<30) umol/L Albumin (3.5-5.0) g/dL Assessment and Plan (1) GI bleed Narrative/Plan: 68 y/o male PMH ETOH abuse, Barretts, GI bleed 2018 s/p EGD/colonoscopy/capsule endoscopy secondary to actively bleeding small bowel angiectasia with underlying chronic anemia and moderate colonic diverticulosis maintained on anticoagul ation for history of paroxysmal atrial fibrillation. New development of painless burgundy colored BM last night. Possible recurrent small bowel GI bleed possible colonic diverticular bleed possible peptic ulcer disease possible new development of esophageal varices exacerbated by anticoagulation. Current Visit: Yes Status: Acute Code(s): K92.2 - GASTROINTESTINAL HEMORRHAGE, UNSPECIFIED SNOMED Code(s): 41503974 (2) Acute blood loss anemia Current Visit: Yes Status: Acute Code(s): D62 - ACUTE POSTHEMORRHAGIC ANEMIA SNOMED Code(s): 270333045 (3) H/O ETOH abuse Current Visit: Yes Status: Acute Code(s): F10.11 - ALCOHOL ABUSE, IN REMISSION SNOMED Code(s): 815367876 (4) CHF exacerbation Current Visit: Yes Status: Acute Code(s): I50.9 - HEART FAILURE, UNSPECIFIED SNOMED Code(s): 175269021 (5) Paroxysmal A-fib Current Visit: Yes Status: Acute Code(s): I48.0 - PAROXYSMAL ATRIAL FIBRILLATION SNOMED Code(s): 252947810 (6) On continuous oral anticoagulation Current Visit: Yes Status: Acute Code(s): Z79.01 - RESIDENTIAL (CURRENT) USE OF ANTICOAGULANTS SNOMED Code(s): 350791411 (7) Jin esophagus Current Visit: Yes Status: Acute Code(s): K22.70 - JIN'S ESOPHAGUS WIT HOUT DYSPLASIA SNOMED Code(s): 099379378 (8) Colon, diverticulosis Current Visit: Yes Status: Acute Code(s): K57.30 - DVRTCLOS OF LG INT W/O PERFORATION OR ABSCESS W/O BLEEDING SNOMED Code(s): 349690857 (9) Chronic anemia Current Visit: Yes Status: Acute Code(s): D64.9 - ANEMIA, UNSPECIFIED SNOMED Code(s): 644047960 (10) History of gastrointestinal bleeding Current Visit: Yes Status: Acute Code(s): Z87.19 - PERSONAL HISTORY OF OTHER DISEASES OF THE DIGESTIVE SYSTEM SNOMED Code(s): 398705572 Plan: 1. CBC every 6 hours x 24 hours. 2. Protonix 40 mg daily. 3. Clear liquid diet. Dr. coon requests holding anticoagulation. 4. Inpatient EGD/capsule endoscopy discussed. If bleeding accelerates recommend tagged RBC scan. Thank you for this consultation and the opportunity to participate in the care of your patient. Assessment and plan of care discussed with Dr. Coon.
--- NOTE | 2018-08-25 16:11 | P.CN ---
Psychiatric Consult - . Consult date: 08/25/18 Consult:: 08/25/18 16:10 Patient's chart was reviewed, when I went to interview the patient he declined a psychiatric consultation stating that he had a bad day yesterday and does not need to speak with me. I instructed the patient should he change his mind to notify either the nurse or his attending physician 2 reconsult psychiatric services.
[2018-08-25] MEDS: ATORVASTATIN 80 MG TAB PO SCH (19:59)
[2018-08-25 20:31] LABS: HCT 28.5 % (39.0-53.0); HGB 9.1 gm/dL (13.0-17.5); Hypochromasia Slight; MCH 29.9 pg (25.0-35.0); MCHC 31.8 g/dL (31.0-37.0); Platelet Count 314 k/uL (150-450); RBC 3.03 m/uL (4.30-5.90); WBC 11.8 k/uL (3.8-10.6)
--- NOTE | 2018-08-26 06:41 | PN ---
PROGRESS NOTE DATE OF SERVICE: 08/25/2018 PRESENTING COMPLAINT: Burgundy stool. INTERVAL HISTORY: Patient admitted with CHF exacerbation. Remains on IV Lasix. Earlier this morning, patient had a large burgundy stool and did consult GI. CBC was ordered. No abdominal pain. The patient feels more perky today. Psychiatry consultation was pending when I saw him. Does feel a bit tired. REVIEW OF SYSTEMS: Done for constitutional, cardiovascular, GI, pulmonary; relevant findings as above. CURRENT MEDICATIONS: Current medications are reviewed that include Lasix IV 40 mg q.8. PHYSICAL EXAMINATION: On examination, temperature 96.8, pulse 60, respiration 18, blood pressure 92/44, pulse ox 91% on 2 L. GENERAL APPEARANCE: Lying in bed, awake. EYES: Pupils equal. Conjunctivae normal. NECK: JVD not raised. Mass not palpable. RESPIRATORY: Effort increased. LUNGS: Decreased breath sounds. CARDIOVASCULAR: First and second sounds normal. Decreased edema. ABDOMEN: Soft, nontender. Liver and spleen not palpable. PSYCHIATRY: Awake. Mood affect a bit low. INVESTIGATIONS: White count 11.8, hemoglobin 7.9, repeat 9.1. BUN 43, creatinine 1.68. ASSESSMENT: 1. Acute on chronic congestive heart failure exacerbation from severe diastolic dysfunction, ejection fraction 50% to 55%, now appears to be euvolemic. 2. Hypertensive heart disease. 3. Acute renal failure, prerenal from diuresis. 4. Essential hypertension. 5. Bicuspid aortic valve working normally per recent [place]. 6. Peripheral arterial disease, prior stent. 7. Primary osteoarthritis. 8. Coronary artery disease. 9. Hyperlipidemia. 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 11.Chronic colonic diverticulosis. 12.Obesity; body mass index 34.5. 13.Paroxysmal atrial fibrillation for which patient is on Eliquis. 14.Metabolic alkalosis. 15.Acute gastrointestinal bleed. The patient had burgundy stool this morning on Eliquis which was held. PLAN: Did speak to Dorothy from GI. The patient was seen by Psychiatry, but he declined further consultation. We will switch the patient over to oral Lasix, becoming prerenal. Will follow. MMODL / IJN: [id number] /
[2018-08-26 07:12] LABS: Potassium 3.8 mmol/L (3.5-5.1)
[2018-08-26 07:30] LABS: Anisocytosis Slight; HGB 8.9 gm/dL (13.0-17.5); Hypochromasia Slight; MCH 30.1 pg (25.0-35.0); MCHC 32.7 g/dL (31.0-37.0); Mean Platelet Volume 7.6; Platelet Count 315 k/uL (150-450); RBC 2.94 m/uL (4.30-5.90); RDW 16.1 % (11.5-15.5); WBC 11.5 k/uL (3.8-10.6)
[2018-08-26] MEDS: POTASSIUM CHLORIDE ER 20 MEQ TAB.ER PO SCH (07:47)
[2018-08-26] MEDS: AMIODARONE 200 MG TAB PO SCH (07:47)
[2018-08-26] MEDS: SPIRONOLACTONE 25 MG TAB PO SCH (07:47)
[2018-08-26] MEDS: acetaZOLAMIDE 250 MG TAB PO SCH (07:47)
[2018-08-26] MEDS: FAMOTIDINE 20 MG TAB PO SCH (07:48)
[2018-08-26] MEDS: FUROSEMIDE 40 MG TAB PO SCH ×2 (07:48→16:19)
[2018-08-26] MEDS: METOPROLOL TARTRATE 25 MG TAB PO SCH ×2 (07:48→20:46)
[2018-08-26] MEDS: LOSARTAN 25 MG TAB PO SCH (07:48)
[2018-08-26] MEDS: GABAPENTIN 100 MG CAP PO SCH ×3 (07:48→22:44)
[2018-08-26] MEDS: NON-FORMULARY DRUG (Vitamin B Complex [Vitamin B Complex] 1 CAP) PO SCH (07:59)
[2018-08-26 12:32] LABS: HCT 25.8 % (39.0-53.0); HGB 8.2 gm/dL (13.0-17.5); Hypochromasia Slight; MCH 29.5 pg (25.0-35.0); MCHC 31.8 g/dL (31.0-37.0); MCV 92.9 fL (80.0-100.0); Mean Platelet Volume 7.6; Platelet Count 308 k/uL (150-450); RBC 2.78 m/uL (4.30-5.90); WBC 11.6 k/uL (3.8-10.6)
--- NOTE | 2018-08-26 12:39 | P.PN ---
Subjective Progress Note Date: 08/26/18 Principal diagnosis: GI bleed Hemoglobin 8.9. No bleeding. Eliquis on hold. Objective - Vital Signs Vital signs: Vital Signs Temp 98.2 F 08/26/18 11:00 Pulse 55 L 08/26/18 11:00 Resp 16 08/26/18 11:34 BP 87/40 08/26/18 11:00 Pulse Ox 93 L 08/26/18 11:00 Intake & Output 08/25/18 08/26/18 08/26/18 18:59 06:59 18:59 Intake Total 1744 10 450 Output Total 500 Balance 1244 10 450 Weight 109.8 kg 109.8 kg Intake: IV 10 Invasive Line 2 10 Oral 1744 450 Output: Urine 500 Other: Voiding Method Toilet Toilet # Voids 1 - Exam General appearance: The patient is alert, oriented, in no acute distress. HET: Head is normocephalic and atraumatic. Pupils are equal and reactive. Oropharynx is clear without lesions. Neck: Supple without lymphadenopathy. Trachea midline. Heart: S1 S2. Lungs: No crackles or wheezes are heard. Abdomen: Soft, nontender, nondistended with bowel sounds. No peritoneal signs. No palpable organomegaly or masses. Neurological: No focal deficits. Strength and sensation are grossly intact. - Labs CBC & Chem 7: 08/26/18 12:14 08/26/18 06:21 Labs: Abnormal Lab Results - Last 24 Hours (Table) 08/25/18 08/25/18 08/26/18 Range/Units 12:34 20:22 06:21 WBC 13.2 H 11.8 H (3.8-10.6) k/uL RBC 2.71 L 3.03 L (4.30-5.90) m/uL Hgb 7.9 L 9.1 L (13.0-17.5) gm/dL Hct 25.1 L 28.5 L (39.0-53.0) % RDW 16.1 H 16.0 H (11.5-15.5) % Sodium 135 L (137-145) mmol/L BUN 44 H (9-20) mg/dL Creatinine 1.79 H (0.66-1.25) mg/dL Glucose 107 H (74-99) mg/dL 08/26/18 Range/Units 06:21 WBC 11.5 H (3.8-10.6) k/uL RBC 2.94 L (4.30-5.90) m/uL Hgb 8.9 L (13.0-17.5) gm/dL Hct 27.0 L (39.0-53.0) % RDW 16.1 H (11.5-15.5) % Sodium (137-145) mmol/L BUN (9-20) mg/dL Creatinine (0.66-1.25) mg/dL Glucose (74-99) mg/dL Assessment and Plan (1) GI bleed Narrative/Plan: 68 y/o male PMH ETOH abuse, Barretts, GI bleed 2018 s/p EGD/colonoscopy/capsule endoscopy secondary to actively bleeding small bowel angiectasia with underlying chronic anemia and moderate colonic diverticulosis maintained on anticoagulation for history of paroxysmal atrial fibrillation. New development of painless burgundy colored BM last night. Possible recurrent small bowel GI bleed possible colonic diverticular bleed possible peptic ulcer disease possible new development of esophageal varices exacerbated by anticoagulation. Current Visit: Yes Status: Acute Code(s): K92.2 - GASTROINTESTINAL HEMORRHAGE, UNSPECIFIED SNOMED Code(s): 85917335 (2) Acute blood loss anemia Current Visit: Yes Status: Acute Code(s): D62 - ACUTE POSTHEMORRHAGIC ANEMIA SNOMED Code(s): 414025311 (3) H/O ETOH abuse Current Visit: Yes Status: Acute Code(s): F10.11 - ALCOHOL ABUSE, IN REMISSION SNOMED Code(s): 543405498 (4) CHF exacerbation Current Visit: Yes Status: Acute Code(s): I50.9 - HEART FAILURE, UNSPECIFIED SNOMED Code(s): 784859743 (5) Paroxysmal A-fib Current Visit: Yes Status: Acute Code(s): I48.0 - PAROXYSMAL ATRIAL FIBRILLATION SNOMED Code(s): 635196767 (6) On continuous oral anticoagulation Current Visit: Yes Status: Acute Code(s): Z79.01 - COMMUNICATIONS STATION MANAGER (CURRENT) USE OF ANTICOAGULANTS SNOMED Code(s): 853379945 (7) Jin esophagus Current Visit: Yes Status: Acute Code(s): K22.70 - JIN'S ESOPHAGUS WITHOUT DYSPLASIA SNOMED Code(s): 561460962 (8) Colon, diverticulosis Current Visit: Yes Status: Acute Code(s): K57.30 - DVRTCLOS OF LG INT W/O PERFORATION OR ABSCESS W/O BLEEDING SNOMED Code(s): 653257357 (9) Chronic anemia Current Visit: Yes Status: Acute Code(s): D64.9 - ANEMIA, UNSPECIFIED SNOMED Code(s): 114261002 (10) History of gastrointestinal bleeding Current Visit: Yes Status: Acute Code(s): Z87.19 - PERSONAL HISTORY OF OTHER DISEASES OF THE DIGESTIVE SYSTEM SNOMED Code(s): 189825249 Plan: 1. CBC monitoring. 2. Protonix 40 mg daily. 3. Clear liquid diet with regular Ensure supplements TID. Dr. Coon requests holding anticoagulation for 1 more day if no bleeding and hemoglobin remains stable will treat conservatively. 4. Inpatient EGD/capsule endoscopy contingent on CBC and active GI bleeding. Assessment and plan a care discussed with Dr. Coon
--- NOTE | 2018-08-26 14:47 | XR ---
Sacrum and coccyx HISTORY: Trauma and pain 3 views of the sacrum and coccyx Bone mineralization is reduced which may limit sensitivity. Vascular calcifications are present in th e pelvis. Degenerative disc and facet arthropathy changes present in the visualized lower lumbar spin e. Alignment is maintained. IMPRESSION: No acute abnormalities evident. Bone scan or MRI could be performed for increased sensiti vity as indicated. Degenerative disc disease and facet arthropathy. Osteopenia.
--- NOTE | 2018-08-26 14:51 | P.PN ---
Subjective Progress Note Date: 08/27/18 This is a 68-year-old gentleman who follows regularly with Dr. VC Rodas in the office. He has a known history of hypertension, hyperlipidemia, paroxysmal atrial fibrillation, coronary artery disease with prior bypass surgery and aortic valve replacement in 2012, history of coronary stents, PAD with prior attempts at vascular stenting, daily EtOH use and prior history of smoking, presented to the hospital on this occasion with symptoms of progressively worsening shortness of breath. According to the patient, for the past one week patient states he's been progressively more and more short of breath. Positive PND and orthopnea. He states that he has not been sleeping for the past several days because of his inability to breathe that, he also states that his appetite at home has been very poor because of the shortness of breath as well. His chest x-ray on admission showed pleural effusions and cardiomegaly as well as diffuse interstitial prominence likely representing pulmonary edema. A CTA of the chest was also performed which did not show evidence of pulmonary embolism. It did show interstitial pulmonary edema, small pleural effusions, atelectasis and underlying congestive cardiac failure. Blood pressure on arrival here 132/60 with a heart rate in the 80s, 90% on room air. Blood pressure this morning 94/40, heart rate in the 60s, 94% on 3 L of oxygen. He is afebrile. White blood cell count on admission 11.8, hemoglobin 8.2, platelet count 213. D-dimer 1.3, sodium 133, potassium 4.0, BUN 26 and creatinine 1.0. Magnesium level I.5, total bilirubin 2.2, AST 65, ALT 52, alk phos 129. Initial troponin 0.68. BNP level 26,700. The patient was initiated on IV Lasix in the emergency room, he states that he's been diuresing overall quite well since his admission here however still feels considerably short of breath and extremely tired this morning. EKG shows a normal sinus rhythm with nonspecific ST-T wave changes. 08/18/2018 Patient was seen and examined this morning, overall he is diuresing well. Continues to have significant bilateral peripheral edema. We will decrease his IV Lasix to 40 mg every 8 hourly today and supplement his potassium. Sodium today 133, potassium 3.2, BUN 27 and creatinine 1.0. 08/19/2018 Patient was seen and examined this morning, blood pressure 120/60 with a heart rate in the 60s, 98% on 3 L of oxygen. Sodium 135, potassium 4.3, BUN 30 and creatinine 1.0. 08/22/2018 The patient was seen and examined this morning, overall he doesn't feel as though he's improving much. Chest x-ray from this morning shows COPD, improving left basilar airspace disease and small left-sided pleural effusion. IV Lasix was discontinued by nephrology and patient was changed to oral diuretics. BUN 97 creatinine 2.0 today. 08/24/2018 Patient was seen and examined today, he does state for the first day that he is actually feeling somewhat better.blood pressure 118/56 with a heart rate of 80, 98% on 2 L of oxygen. Sodium 135, potassium 4.0, BUN 36 and creatinine 1.4. 08/25/2018 Patient seen and examined today, appeared quite depressed, his daughter was at bedside. Blood pressure 116/98, heart rate in the 70s. White blood cell count 11.5, hemoglobin 8.9, platelet count 315. Sodium 135, potassium 3.8, BUN 44 and creatinine 1.7. Continues to be on IV Lasix at this time. 08/26/2018 Patient seen and examined this morning, apparently had some blood in his stool. Changed over to oral diuretics today. Blood pressure 130/50 with a heart rate in the 60s. Objective - Vital Signs Vital signs: Vital Signs Temp 98.2 F 08/26/18 11:00 Pulse 57 L 08/26/18 14:00 Resp 16 08/26/18 14:00 BP 130/58 08/26/18 14:00 Pulse Ox 93 L 08/26/18 11:00 Intake & Output 08/25/18 08/26/18 08/26/18 18:59 06:59 18:59 Intake Total 1744 10 800 Output Total 500 Balance 1244 10 800 Weight 109.8 kg 109.8 kg Intake: IV 10 Invasive Line 2 10 Oral 1744 800 Output: Urine 500 Other: Voiding Method Toilet Toilet # Voids 1 1 - Exam PHYSICAL EXAMINATION: GENERAL: 68-year-old gentleman in no acute distress at the time of my examination HEENT: Head is atraumatic, normocephalic. Pupils equal, round. Sclera anicteric. Conjunctiva are clear. Mucous membranes of the mouth are moist. Neck is supple. There is elevated jugular venous pressure. Bilateral carotid bruits are heard. HEART EXAMINATION: Heart S1, S2 systolic ejection murmur is heard in aortic area. CHEST EXAMINATION: Lungs reveal bilateral rales with diminished air entry to the bases bilaterally ABDOMEN: Soft, nontender. Bowel sounds are heard. No organomegaly noted. EXTREMITIES: 2+ peripheral pulses with 1+ evidence of peripheral edema and no calf tenderness noted. NEUROLOGIC patient is awake, alert and oriented 3 . . - Labs CBC & Chem 7: 08/26/18 12:14 08/26/18 06:21 Labs: Abnormal Lab Results - Last 24 Hours (Table) 08/25/18 08/26/18 08/26/18 Range/Units 20:22 06:21 06:21 WBC 11.8 H 11.5 H (3.8-10.6) k/uL RBC 3.03 L 2.94 L (4.30-5.90) m/uL Hgb 9.1 L 8.9 L (13.0-17.5) gm/dL Hct 28.5 L 27.0 L (39.0-53.0) % RDW 16.0 H 16.1 H (11.5-15.5) % Sodium 135 L (137-145) mmol/L BUN 44 H (9-20) mg/dL Creatinine 1.79 H (0.66-1.25) mg/dL Glucose 107 H (74-99) mg/dL 08/26/18 Range/Units 12:14 WBC 11.6 H (3.8-10.6) k/uL RBC 2.78 L (4.30-5.90) m/uL Hgb 8.2 L (13.0-17.5) gm/dL Hct 25.8 L (39.0-53.0) % RDW 16.0 H (11.5-15.5) % Sodium (137-145) mmol/L BUN (9-20) mg/dL Creatinine (0.66-1.25) mg/dL Glucose (74-99) mg/dL Assessment and Plan Plan: Assessment and plan #1 diastolic congestive heart failure acute on chronic. Most recent echo was performed in May of this year which revealed an ejection fraction of 50-55%, mild to moderate stenosis of the bioprosthetic aortic valve was noted moderate pulmonary hypertension. #2 known history of coronary artery disease with prior bypass surgery and aortic valve replacement in 2012 ,patient also has history of prior cardiac stents #3 hypertension #4 hyperlipidemia #5 PVD with prior attempts at vascular stenting #6 history of nicotine dependence #7 current EtOH use daily #8 paroxysmal atrial fibrillation, on amiodarone, on Eliquis for anticoagulation Plan Patient has been changed over to oral diuretics, we'll continue to monitor for another 24 hours. DNP note has been reviewed, I agree with a documented findings and plan of care. Patient was seen and examined.
[2018-08-26] MEDS ORDERED: SODIUM CHLORIDE 0.9% 1,000 ML IV SCH (18:30)
[2018-08-26 18:43] LABS: Anisocytosis Slight; HCT 27.2 % (39.0-53.0); HGB 8.5 gm/dL (13.0-17.5); Hypochromasia Moderate; MCH 29.2 pg (25.0-35.0); MCHC 31.1 g/dL (31.0-37.0); MCV 93.9 fL (80.0-100.0); Mean Platelet Volume 7.2; Platelet Count 297 k/uL (150-450); RDW 16.1 % (11.5-15.5); WBC 9.6 k/uL (3.8-10.6)
[2018-08-26] MEDS: ATORVASTATIN 80 MG TAB PO SCH (20:46)
--- NOTE | 2018-08-26 22:31 | PN ---
PROGRESS NOTE DATE OF SERVICE: August 26, 2018 PRESENTING COMPLAINT: Fall on the buttock. INTERVAL HISTORY: Patient admitted with CHF exacerbation, was switched over to oral Lasix. Did have a burgundy stool. Gastroenterology held Eliquis. They are watching conservatively. No further bleeding. This morning, patient was going to go to the bathroom, fell down on his buttock. X-ray of the sacral coccyx was done. No fracture. The patient does feel a bit tired. REVIEW OF SYSTEMS: Done for constitutional, cardiovascular, GI, pulmonary, musculoskeletal and relevant findings as above. CURRENT MEDICATIONS: Reviewed that include Lasix p.o. 40 mg b.i.d. PHYSICAL EXAMINATION: VITAL SIGNS: Temperature 98.2, pulse 65, respirations 16, blood pressure 79/40. Repeat blood pressure this afternoon was 130/58. GENERAL APPEARANCE: Sitting up in a chair. Tired-appearing. EYES: Pupils equal. Conjunctivae normal. NECK: JVD not raised. Mass not palpable. RESPIRATORY: Effort normal. LUNGS: Clear. CARDIOVASCULAR: 1st and 2nd sounds normal. Decreased edema. ABDOMEN: Soft, nontender. Liver and spleen not palpable. PSYCHIATRY: Awake. Appears a bit low. INVESTIGATIONS: White count 11.6, hemoglobin 8.2, BUN 44, creatinine 1.79. ASSESSMENT: 1. Acute on chronic congestive heart failure from severe diastolic dysfunction. EF 50 to 55%. Now euvolemic/hypovolemic. 2. Hypertensive heart disease. 3. Hypotension this morning from slight over-diuresis. 4. Acute renal failure prerenal from diuresis. 5. Essential hypertension. 6. Bicuspid aortic valve. 7. Peripheral artery disease, prior stent. 8. Primary osteoarthritis. 9. Coronary artery disease. 10.Hyperlipidemia. 11.Zhu's esophagus from history of alcoholism. 12.Chronic colonic diverticulosis. 13.Obesity; BMI 34.5. 14.Paroxysmal atrial fibrillation for which patient is on Eliquis. 15.Metabolic alkalosis. 16.Acute gastrointestinal bleed with burgundy stools. Eliquis has been held, being followed conservatively by Gastroenterology. 17.Fall on the buttock. X-rays negative for any fracture. PLAN: Patient definitely on the dry side and also blood pressure has been on the low side. We will give gentle hydration today carefully and resume diuretics tomorrow. Follow hemoglobin closely. MMODL / IJN: [id number] /
[2018-08-27 01:23] LABS: HCT 24.5 % (39.0-53.0); HGB 7.9 gm/dL (13.0-17.5); Hypochromasia Slight; MCHC 32.3 g/dL (31.0-37.0); Mean Platelet Volume 7.1; Platelet Count 286 k/uL (150-450); RBC 2.64 m/uL (4.30-5.90); WBC 9.7 k/uL (3.8-10.6)
[2018-08-27 07:20] LABS: Calcium 8.6 mg/dL (8.4-10.2); Potassium 4.3 mmol/L (3.5-5.1)
[2018-08-27] MEDS: AMIODARONE 200 MG TAB PO SCH (08:18)
[2018-08-27] MEDS: FAMOTIDINE 20 MG TAB PO SCH (08:18)
[2018-08-27] MEDS: GABAPENTIN 100 MG CAP PO SCH ×3 (08:19→23:32)
[2018-08-27] MEDS: POTASSIUM CHLORIDE ER 20 MEQ TAB.ER PO SCH (08:19)
[2018-08-27] MEDS: SPIRONOLACTONE 25 MG TAB PO SCH (08:19)
[2018-08-27] MEDS: FUROSEMIDE 40 MG TAB PO SCH (08:19)
[2018-08-27] MEDS: NON-FORMULARY DRUG (Vitamin B Complex [Vitamin B Complex] 1 CAP) PO SCH (08:21)
[2018-08-27] MEDS: METOPROLOL TARTRATE 25 MG TAB PO SCH ×2 (11:31→20:14)
--- NOTE | 2018-08-27 14:42 | P.PN ---
Subjective Progress Note Date: 08/27/18 This is a 68-year-old gentleman who follows regularly with Dr. VC Rodas in the office. He has a known history of hypertension, hyperlipidemia, paroxysmal atrial fibrillation, coronary artery disease with prior bypass surgery and aortic valve replacement in 2012, history of coronary stents, PAD with prior attempts at vascular stenting, daily EtOH use and prior history of smoking, presented to the hospital on this occasion with symptoms of progressively worsening shortness of breath. According to the patient, for the past one week patient states he's been progressively more and more short of breath. Positive PND and orthopnea. He states that he has not been sleeping for the past several days because of his inability to breathe that, he also states that his appetite at home has been very poor because of the shortness of breath as well. His chest x-ray on admission showed pleural effusions and cardiomegaly as well as diffuse interstitial prominence likely representing pulmonary edema. A CTA of the chest was also performed which did not show evidence of pulmonary embolism. It did show interstitial pulmonary edema, small pleural effusions, atelectasis and underlying congestive cardiac failure. Blood pressure on arrival here 132/60 with a heart rate in the 80s, 90% on room air. Blood pressure this morning 94/40, heart rate in the 60s, 94% on 3 L of oxygen. He is afebrile. White blood cell count on admission 11.8, hemoglobin 8.2, platelet count 213. D-dimer 1.3, sodium 133, potassium 4.0, BUN 26 and creatinine 1.0. Magnesium level I.5, total bilirubin 2.2, AST 65, ALT 52, alk phos 129. Initial troponin 0.68. BNP level 26,700. The patient was initiated on IV Lasix in the emergency room, he states that he's been diuresing overall quite well since his admission here however still feels considerably short of breath and extremely tired this morning. EKG shows a normal sinus rhythm with nonspecific ST-T wave changes. 08/18/2018 Patient was seen and examined this morning, overall he is diuresing well. Continues to have significant bilateral peripheral edema. We will decrease his IV Lasix to 40 mg every 8 hourly today and supplement his potassium. Sodium today 133, potassium 3.2, BUN 27 and creatinine 1.0. 08/19/2018 Patient was seen and examined this morning, blood pressure 120/60 with a heart rate in the 60s, 98% on 3 L of oxygen. Sodium 135, potassium 4.3, BUN 30 and creatinine 1.0. 08/22/2018 The patient was seen and examined this morning, overall he doesn't feel as though he's improving much. Chest x-ray from this morning shows COPD, improving left basilar airspace disease and small left-sided pleural effusion. IV Lasix was discontinued by nephrology and patient was changed to oral diuretics. BUN 97 creatinine 2.0 today. 08/24/2018 Patient was seen and examined today, he does state for the first day that he is actually feeling somewhat better.blood pressure 118/56 with a heart rate of 80, 98% on 2 L of oxygen. Sodium 135, potassium 4.0, BUN 36 and creatinine 1.4. 08/25/2018 Patient seen and examined today, appeared quite depressed, his daughter was at bedside. Blood pressure 116/98, heart rate in the 70s. White blood cell count 11.5, hemoglobin 8.9, platelet count 315. Sodium 135, potassium 3.8, BUN 44 and creatinine 1.7. Continues to be on IV Lasix at this time. 08/26/2018 Patient seen and examined this morning, apparently had some blood in his stool. Changed over to oral diuretics today. Blood pressure 130/50 with a heart rate in the 60s. 08/27/2018 Patient seen and examined this morning, feeling better overall. On by mouth diuretics. Objective - Vital Signs Vital signs: Vital Signs Temp 97.9 F 08/27/18 03:28 Pulse 77 08/27/18 11:37 Resp 16 08/27/18 11:37 BP 97/52 08/27/18 03:28 Pulse Ox 95 08/27/18 03:28 Intake & Output 08/26/18 08/27/18 08/27/18 18:59 06:59 18:59 Intake Total 800 500 496 Output Total 250 Balance 800 250 496 Weight 109.8 kg 116.8 kg Intake: IV 20 Invasive Line 3 20 Oral 800 500 476 Output: Urine 250 Other: Voiding Method Toilet Toilet Urinal # Voids 1 1 1 - Exam PHYSICAL EXAMINATION: GENERAL: 68-year-old gentleman in no acute distress at the time of my examination HEENT: Head is atraumatic, normocephalic. Pupils equal, round. Sclera anicteric. Conjunctiva are clear. Mucous membranes of the mouth are moist. Neck is supple. There is elevated jugular venous pressure. Bilateral carotid bruits are heard. HEART EXAMINATION: Heart S1, S2 systolic ejection murmur is heard in aortic area. CHEST EXAMINATION: Lungs reveal bilateral rales with diminished air entry to the bases bilaterally ABDOMEN: Soft, nontender. Bowel sounds are heard. No organomegaly noted. EXTREMITIES: 2+ peripheral pulses with 1+ evidence of peripheral edema and no calf tenderness noted. NEUROLOGIC patient is awake, alert and oriented 3 . . - Labs CBC & Chem 7: 08/27/18 01:07 08/27/18 06:05 Labs: Abnormal Lab Results - Last 24 Hours (Table) 08/26/18 08/27/18 08/27/18 Range/Units 18:22 01:07 06:05 RBC 2.90 L 2.64 L (4.30-5.90) m/uL Hgb 8.5 L 7.9 L (13.0-17.5) gm/dL Hct 27.2 L 24.5 L (39.0-53.0) % RDW 16.1 H 16.0 H (11.5-15.5) % Sodium 135 L (137-145) mmol/L BUN 45 H (9-20) mg/dL Creatinine 1.66 H (0.66-1.25) mg/dL Glucose 104 H (74-99) mg/dL Assessment and Plan Plan: Assessment and plan #1 diastolic congestive heart failure acute on chronic. Most recent echo was performed in May of this year which revealed an ejection fraction of 50-55%, mild to moderate stenosis of the bioprosthetic aortic valve was noted moderate pulmonary hypertension. #2 known history of coronary artery disease with prior bypass surgery and aortic valve replacement in 2012 ,patient also has history of prior cardiac stents #3 hypertension #4 hyperlipidemia #5 PVD with prior attempts at vascular stenting #6 history of nicotine dependence #7 current EtOH use daily #8 paroxysmal atrial fibrillation, on amiodarone, on Eliquis for anticoagulation Plan Patient has been changed over to oral diuretics, would recommend a possible rehab on discharge, patient complains he still feels quite weak on ambulation. Okay for discharge from our perspective once cleared by primary. DNP note has been reviewed, I agree with a documented findings and plan of care. Patient was seen and examined.
--- NOTE | 2018-08-27 16:15 | P.PN ---
Subjective Progress Note Date: 08/27/18 Principal diagnosis: GI bleed Hemoglobin 7.9. No bleeding. Eliquis on hold. Feels well. Tolerating diet. Objective - Vital Signs Vital signs: Vital Signs Temp 97.9 F 08/27/18 03:28 Pulse 68 08/27/18 15:47 Resp 16 08/27/18 15:47 BP 97/52 08/27/18 03:28 Pulse Ox 95 08/27/18 03:28 Intake & Output 08/26/18 08/27/18 08/27/18 18:59 06:59 18:59 Intake Total 800 500 506 Output Total 250 Balance 800 250 506 Weight 109.8 kg 116.8 kg Intake: IV 30 Invasive Line 3 30 Oral 800 500 476 Output: Urine 250 Other: Voiding Method Toilet Toilet Urinal # Voids 1 1 1 - Exam General appearance: The patient is alert, oriented, in no acute distress. HET: Head is normocephalic and atraumatic. Pupils are equal and reactive. Oropharynx is clear without lesions. Neck: Supple without lymphadenopathy. Trachea midline. Heart: S1 S2. Lungs: No crackles or wheezes are heard. Abdomen: Soft, nontender, nondistended with bowel sounds. No peritoneal signs. No palpable organomegaly or masses. Neurological: No focal deficits. Strength and sensation are grossly intact. - Labs CBC & Chem 7: 08/27/18 01:07 08/27/18 06:05 Labs: Abnormal Lab Results - Last 24 Hours (Table) 08/26/18 08/27/18 08/27/18 Range/Units 18:22 01:07 06:05 RBC 2.90 L 2.64 L (4.30-5.90) m/uL Hgb 8.5 L 7.9 L (13.0-17.5) gm/dL Hct 27.2 L 24.5 L (39.0-53.0) % RDW 16.1 H 16.0 H (11.5-15.5) % Sodium 135 L (137-145) mmol/L BUN 45 H (9-20) mg/dL Creatinine 1.66 H (0.66-1.25) mg/dL Glucose 104 H (74-99) mg/dL Assessment and Plan (1) GI bleed Narrative/Plan: 68 y/o male PMH ETOH abuse, Barretts, GI bleed 2018 s/p EGD/colonoscopy/capsule endoscopy secondary to actively bleeding small bowel angiectasia with underlying chronic anemia and moderate colonic diverticulosis maintained on anticoagulation for history of paroxysmal atrial fibrillation. New development of painless burgundy colored BM last night. Possible recurrent small bowel GI bleed possible colonic diverticular bleed possible peptic ulcer disease possible new development of esophageal varices exacerbated by anticoagulation. Current Visit: Yes Status: Acute Code(s): K92.2 - GASTROINTESTINAL HEMORRHAGE, UNSPECIFIED SNOMED Code(s): 06447427 (2) Acute blood loss anemia Current Visit: Yes Status: Acute Code(s): D62 - ACUTE POSTHEMORRHAGIC ANEMIA SNOMED Code(s): 446615212 (3) H/O ETOH abuse Current Visit: Yes Status: Acute Code(s): F10.11 - ALCOHOL ABUSE, IN REMISSION SNOMED Code(s): 817646715 (4) CHF exacerbation Current Visit: Yes Status: Acute Code(s): I50.9 - HEART FAILURE, UNSPECIFIED SNOMED Code(s): 823563181 (5) Paroxysmal A-fib Current Visit: Yes Status: Acute Code(s): I48.0 - PAROXYSMAL ATRIAL FIBRILLATION SNOMED Code(s): 142491833 (6) On continuous oral anticoagulation Current Visit: Yes Status: Acute Code(s): Z79.01 - [facility] (CURRENT) USE OF ANTICOAGULANTS SNOMED Code(s): 207244237 (7) Jin esophagus Current Visit: Yes Status: Acute Code(s): K22.70 - JIN'S ESOPHAGUS WITHOUT DYSPLASIA SNOMED Code(s): 690363477 (8) Colon, diverticulosis Current Visit: Yes Status: Acute Code(s): K57.30 - DVRTCLOS OF LG INT W/O PERFORATION OR ABSCESS W/O BLEEDING SNOMED Code(s): 702289395 (9) Chronic anemia Current Visit: Yes Status: Acute Code(s): D64.9 - ANEMIA, UNSPECIFIED SNOMED Code(s): 035578356 (10) History of gastrointestinal bleeding Current Visit: Yes Status: Acute Code(s): Z87.19 - PERSONAL HISTORY OF OTHER DISEASES OF THE DIGESTIVE SYSTEM SNOMED Code(s): 918428164 Plan: 1. CBC monitoring. Cardiac diet. 2. Protonix 40 mg daily. 3. May resume anticoagulation. Assessment and plan a care discussed with Dr. Coon
--- NOTE | 2018-08-27 18:56 | P.PN ---
Subjective Progress Note Date: 08/27/18 Principal diagnosis: Acute exacerbation diastolic CHF GI bleed Atrial fibrillation; on anticoagulation therapy 68 y/o male PMH ETOH abuse, Barretts, GI bleed 2018 s/p EGD/colonoscopy/capsule endoscopy secondary to actively bleeding small bowel angiectasia with underlying chronic anemia and moderate colonic diverticulosis maintained on anticoagulation for history of paroxysmal atrial fibrillation. New development of painless burgundy colored BM last night. Possible recurrent small bowel GI bleed possible colonic diverticular bleed possible peptic ulcer disease possible new d evelopment of esophageal varices exacerbated by anticoagulation. 08/27/2018 Patient is seen and evaluated in room sitting up in chair at bedside; patient deeply asleep but arousable with tactile stimulation Vital signs are stable with temperature of 97.9, pulse 64, respirations 16 and blood pressure of 97/52 Lab review shows a white blood count of 9.7 with hemoglobin of 7.9; chemical profile sodium 135, potassium 4.3 with B UN of 45 and creatinine of 1.66 Patient is evaluated by GI and has been cleared to restart anticoagulation therapy Cardiology is following patient and have switched patient to oral antibiotics; per cardiology service patient has been cleared for possible rehab upon discharge We will plan to continue monitoring H&H for another 24 hours after starting Eliquis and possible discharge if hemoglobin remains stable Objective - Vital Signs Vital signs: Vital Signs Temp 97.9 F 08/27/18 03:28 Pulse 77 08/27/18 11:37 Resp 16 08/27/18 11:37 BP 97/52 08/27/18 03:28 Pulse Ox 95 08/27/18 03:28 Intake & Output 08/26/18 08/27/18 08/27/18 18:59 06:59 18:59 Intake Total 800 500 496 Output Total 250 Balance 800 250 496 Weight 109.8 kg 116.8 kg Intake: IV 20 Invasive Line 3 20 Oral 800 500 476 Output: Urine 250 Other: Voiding Method Toilet Toilet Urinal # Voids 1 1 1 - Exam HEENT: Head is atraumatic, normocephalic. Pupils equal, round. Sclera anicteric. Conjunctiva are clear. Mucous membranes of the mouth are moist. Neck is supple. There is elevated jugular venous pressure. Bilateral carotid bruits are heard. HEART EXAMINATION: Heart S1, S2 systolic ejection murmur is heard in aortic area. CHEST EXAMINATION: Lungs reveal bilateral rales with diminished air entry to the bases bilaterally ABDOMEN: Soft, nontender. Bowel sounds are heard. No organomegaly noted. EXTREMITIES: 2+ peripheral pulses with 1+ evidence of peripheral edema and no calf tenderness noted. NEUROLOGIC patient is awake, alert and oriented 3 . - Labs CBC & Chem 7: 08/27/18 01:07 08/27/18 06:05 Labs: Abnormal Lab Results - Last 24 Hours (Table) 08/26/18 08/27/18 08/27/18 Range/Units 18:22 01:07 06:05 RBC 2.90 L 2.64 L (4.30-5.90) m/uL Hgb 8.5 L 7.9 L (13.0-17.5) gm/dL Hct 27.2 L 24.5 L (39.0-53.0) % RDW 16.1 H 16.0 H (11.5-15.5) % Sodium 135 L (137-145) mmol/L BUN 45 H (9-20) mg/dL Creatinine 1.66 H (0.66-1.25) mg/dL Glucose 104 H (74-99) mg/dL Assessment and Plan Assessment: 1 diastolic congestive heart failure acute on chronic. Most recent echo was performed in May of this year which revealed an ejection fraction of 50-55%, mild to moderate stenosis of the bioprosthetic aortic valve was noted moderate pulmonary hypertension. 2 known history of coronary artery disease with prior bypass surgery and aortic valve replacement in 2012 ,patient also has history of prior cardiac stents 3 hypertension 4 hyperlipidemia 5 GI bleed 6 history of nicotine dependence 7 current EtOH use daily 8 paroxysmal atrial fibrillation, on amiodarone, on Eliquis for anticoagulation DVT prophylaxis; systemic anticoagulation CODE STATUS; full code Time with Patient: Greater than 30
[2018-08-27] MEDS: APIXABAN 5 MG TAB PO SCH (20:14)
[2018-08-27] MEDS: ATORVASTATIN 80 MG TAB PO SCH (20:14)
[2018-08-27] MEDS ORDERED: LOSARTAN 25 MG TAB PO SCH (21:00)
[2018-08-28 07:29] LABS: Basophils % (A) 0 %; Eosinophils % (A) 0 %; HCT 25.7 % (39.0-53.0); HGB 8.2 gm/dL (13.0-17.5); Hypochromasia Slight; Lymphocytes # (A) 0.3 k/uL (1.0-4.8); Lymphocytes % (A) 3 %; MCH 29.3 pg (25.0-35.0); MCHC 31.7 g/dL (31.0-37.0); MCV 92.5 fL (80.0-100.0); Mean Platelet Volume 6.9; Monocytes # (A) 0.6 k/uL (0-1.0); Monocytes % (A) 5 %; Neutrophils # (A) 10.8 k/uL (1.3-7.7); Neutrophils % (A) 91 %; Platelet Count 299 k/uL (150-450); RBC 2.78 m/uL (4.30-5.90); WBC 11.9 k/uL (3.8-10.6)
[2018-08-28 07:48] LABS: Potassium 3.8 mmol/L (3.5-5.1)
[2018-08-28] MEDS: GABAPENTIN 100 MG CAP PO SCH (08:14)
[2018-08-28] MEDS: AMIODARONE 200 MG TAB PO SCH (08:14)
[2018-08-28] MEDS: SPIRONOLACTONE 25 MG TAB PO SCH (08:14)
[2018-08-28] MEDS: FAMOTIDINE 20 MG TAB PO SCH (08:14)
[2018-08-28] MEDS: APIXABAN 5 MG TAB PO SCH (08:14)
[2018-08-28] MEDS: NON-FORMULARY DRUG (Vitamin B Complex [Vitamin B Complex] 1 CAP) PO SCH (08:14)
[2018-08-28] MEDS: FUROSEMIDE 40 MG TAB PO SCH (08:14)
[2018-08-28] MEDS: POTASSIUM CHLORIDE ER 20 MEQ TAB.ER PO SCH (08:14)
[2018-08-28] MEDS: METOPROLOL TARTRATE 25 MG TAB PO SCH (08:14)
[2018-08-28 11:22] LABS: Glucose,Whole Blood 170 mg/dL (75-99)
[2018-08-28 11:43] VITALS: BMI 33.2
--- NOTE | 2018-08-28 14:29 | P.PN ---
Subjective Progress Note Date: 08/28/18 Principal diagnosis: GI bleed Hemoglobin improved 8.2. No bleeding. Eliquis restarted. Feels well. Tolerating diet. Objective - Vital Signs Vital signs: Vital Signs Temp 97.8 F 08/28/18 11:52 Pulse 61 08/28/18 11:54 Resp 16 08/28/18 11:54 BP 98/49 08/28/18 11:52 Pulse Ox 94 L 08/28/18 11:52 Intake & Output 08/27/18 08/28/18 08/28/18 18:59 06:59 18:59 Intake Total 1575 473 Output Total 300 Balance 1575 173 Weight 111.1 kg 111.1 kg Intake: IV 30 Invasive Line 3 30 Oral 1545 473 Output: Urine 300 Other: Voiding Method Urinal Urinal Urinal # Voids 1 3 1 - Exam General appearance: The patient is alert, oriented, in no acute distress. HET: Head is normocephalic and atraumatic. Pupils are equal and reactive. Oropharynx is clear without lesions. Neck: Supple without lymphadenopathy. Trachea midline. Heart: S1 S2. Lungs: No crackles or wheezes are heard. Abdomen: Soft, nontender, nondistended with bowel sounds. No peritoneal signs. No palpable organomegaly or masses. Neurological: No focal deficits. Strength and sensation are grossly intact. - Labs CBC & Chem 7: 08/28/18 07:02 08/28/18 07:02 Labs: Abnormal Lab Results - Last 24 Hours (Table) 08/28/18 08/28/18 08/28/18 Range/Units 07:02 07:02 11:10 WBC 11.9 H (3.8-10.6) k/uL RBC 2.78 L (4.30-5.90) m/uL Hgb 8.2 L (13.0-17.5) gm/dL Hct 25.7 L (39.0-53.0) % RDW 16.0 H (11.5-15.5) % Neutrophils # 10.8 H (1.3-7.7) k/uL Lymphocytes # 0.3 L (1.0-4.8) k/uL Sodium 135 L (137-145) mmol/L Carbon Dioxide 21 L (22-30) mmol/L BUN 42 H (9-20) mg/dL Creatinine 1.37 H (0.66-1.25) mg/dL Glucose 115 H (74-99) mg/dL POC Glucose (mg/dL) 170 H (75-99) mg/dL Assessment and Plan (1) GI bleed Narrative/Plan: 68 y/o male PMH ETOH abuse, Barretts, GI bleed 2018 s/p EGD/colonoscopy/capsule endoscopy secondary to actively bleeding small bowel angiectasia with underlying chronic anemia and moderate colonic diverticulosis maintained on anticoagulation for history of paroxysmal atrial fibrillation. New development of painless burgundy colored BM last night. Possible recurrent small bowel GI bleed possible colonic diverticular bleed possible peptic ulcer disease possible new developme nt of esophageal varices exacerbated by anticoagulation. Current Visit: Yes Status: Acute Code(s): K92.2 - GASTROINTESTINAL HEMORRHAGE, UNSPECIFIED SNOMED Code(s): 88386374 (2) Acute blood loss anemia Current Visit: Yes Status: Acute Code(s): D62 - ACUTE POSTHEMORRHAGIC ANEMIA SNOMED Code(s): 534559340 (3) H/O ETOH abuse Current Visit: Yes Status: Acute Code(s): F10.11 - ALCOHOL ABUSE, IN REMISSION SNOMED Code(s): 781857305 (4) CHF exacerbation Current Visit: Yes Status: Acute Code(s): I50.9 - HEART FAILURE, UNSPECIFIED SNOMED Code(s): 336926867 (5) Paroxysmal A-fib Current Visit: Yes Status: Acute Code(s): I48.0 - PAROXYSMAL ATRIAL FIBRILLATION SNOMED Code(s): 383817343 (6) On continuous oral anticoagulation Current Visit: Yes Status: Acute Code(s): Z79.01 - [facility] (CURRENT) USE OF ANTICOAGULANTS SNOMED Code(s): 722150679 (7) Jin esophagus Current Visit: Yes Status: Acute Code(s): K22.70 - JIN'S ESOPHAGUS WITHOUT DYSPLASIA SNOMED Code(s): 644407210 (8) Colon, diverticulosis Current Visit: Yes Status: Acute Code(s): K57.30 - DVRTCLOS OF LG INT W/O PERFORATION OR ABSCESS W/O BLEEDING SNOMED Code(s): 664810798 (9) Chronic anemia Current Visit: Yes Status: Acute Code(s): D64.9 - ANEMIA, UNSPECIFIED SNOMED Code(s): 156459840 (10) History of gastrointestinal bleeding Current Visit: Yes Status: Acute Code(s): Z87.19 - PERSONAL HISTORY OF OTHER DISEASES OF THE DIGESTIVE SYSTEM SNOMED Code(s): 425595321 Plan: 1. CBC monitoring. Cardiac diet. 2. Protonix 40 mg daily. 3. Continue anticoagulation. Assessment and plan a care discussed with Dr. Coon
--- NOTE | 2018-08-28 15:06 | P.DS ---
Providers Date of admission: 08/16/18 18:06 Expected date of discharge: 08/28/18 Attending physician: Jin Partida Consults: 08/16/18 18:05 Consult Physician Routine Consulting Provider: Cardiology Meño Consult Reason/Comments: Acute pulmonary edema Do you want consulting provider notified?: Yes 08/24/18 16:38 Consult Physician Routine Consulting Provider: Dhara Joiner Consult Reason/Comments: DEPRESSION-FATIGUE Do you want consulting provider notified?: Yes 08/25/18 07:11 Consult Physician Routine Consulting Provider: Alberto Coon Consult Reason/Comments: GI Bleed Do you want consulting provider notified?: Yes Primary care physician: [facility] Course: 68 y/o male PMH ETOH abuse, Barretts, GI bleed 2018 s/p EGD/colonoscopy/capsule endoscopy secondary to actively bleeding small bowel angiectasia with underlying chronic anemia and moderate colonic diverticulosis maintained on anticoagulation for history of paroxysmal atrial fibrillation. New development of painless burgundy colored BM last night. Possible recurrent small bowel GI bleed possible colonic diverticular bleed possible peptic ulcer disease possible new development of esophageal varices exacerbated by anticoagulation. 08/27/2018 Patient is seen and evaluated in room sitting up in chair at bedside; patient deeply asleep but arousable with tactile stimulation Vital signs are stable with temperature of 97.9, pulse 64, respirations 16 and blood pressure of 97/52 Lab review shows a white blood count of 9.7 with hemoglobin of 7.9; chemical profile sodium 135, potassium 4.3 with B UN of 45 and creatinine of 1.66 Patient is evaluated by GI and has been cleared to restart anticoagulation therapy Cardiology is following patient and have switched patient to oral antibiotics; per cardiology service patient has been cleared for possible rehab upon discharge We will plan to continue monitoring H&H for another 24 hours after starting Eliquis and possible discharge if hemoglobin remains stable 08/28/2018 Patient was restarted on anticoagulation yesterday; hemoglobin remained stable at 8.2; we will discharge patient home with current medications Physical exam HEENT: Head is atraumatic, normocephalic. Pupils equal, round. Sclera anicteric. Conjunctiva are clear. Mucous membranes of the mouth are moist. Neck is supple. There is elevated jugular venous pressure. Bilateral carotid bruits are heard. HEART EXAMINATION: Heart S1, S2 systolic ejection murmur is heard in aortic area. CHEST EXAMINATION: Lungs reveal bilateral rales with diminished air entry to the bases bilaterally ABDOMEN: Soft, nontender. Bowel sounds are heard. No organomegaly noted. EXTREMITIES: 2+ peripheral pulses with 1+ evidence of peripheral edema and no calf tenderness noted. NEUROLOGIC patient is awake, alert and oriented 3 . Patient Condition at Discharge: Fair Plan - Discharge Summary Discharge Rx Participant: No New Discharge Prescriptions: New Losartan [Cozaar] 12.5 mg PO HS #30 tab Potassium Chloride ER [K-Dur 20] 20 meq PO DAILY #30 tab.er.prt Continue Metoprolol Tartrate [Lopressor] 25 mg PO BID Atorvastatin [Lipitor] 80 mg PO HS [place]-3 Fatty Acids/Fish Oil [Fish Oil 1,000 mg Softgel] 1 cap PO DAILY Nitroglycerin Sl Tabs [Nitrostat] 0.4 mg SUBLINGUAL Q5M PRN #25 tab PRN Reason: Chest Pain Amiodarone HCl [Pacerone] 200 mg PO DAILY Apixaban [Eliquis] 5 mg PO BID Ranitidine HCl [Zantac] 150 mg PO BID Vitamin B Complex 1 cap PO DAILY Furosemide [Lasix] 40 mg PO DAILY tab Gabapentin [Neurontin] 100 mg PO TID #9 cap HYDROcodone/APAP 5-325MG [[place] 5-325] 1 tab PO TID PRN PRN Reason: Pain Spironolactone 50 mg PO DAILY Isosorbide Mononitrate ER [Imdur] 15 mg PO DAILY Discharge Medication List Atorvastatin [Lipitor] 80 mg PO HS 10/06/14 [History] Metoprolol Tartrate [Lopressor] 25 mg PO BID 10/06/14 [History] [place]-3 Fatty Acids/Fish Oil [Fish Oil 1,000 mg Softgel] 1 cap PO DAILY 10/06/14 [History] Nitroglycerin Sl Tabs [Nitrostat] 0.4 mg SUBLINGUAL Q5M PRN #25 tab 05/14/15 [Rx] Amiodarone HCl [Pacerone] 200 mg PO DAILY 06/27/16 [History] Apixaban [Eliquis] 5 mg PO BID 09/24/17 [History] Ranitidine HCl [Zantac] 150 mg PO BID 05/30/18 [History] Vitamin B Complex 1 cap PO DAILY 06/07/18 [History] Furosemide [Lasix] 40 mg PO DAILY tab 06/15/18 [Rx] Gabapentin [Neurontin] 100 mg PO TID #9 cap 06/15/18 [Rx] HYDROcodone/APAP 5-325MG [[place] 5-325] 1 tab PO TID PRN 08/16/18 [History] Isosorbide Mononitrate ER [Imdur] 15 mg PO DAILY 08/16/18 [History] Spironolactone 50 mg PO DAILY 08/16/18 [History] Losartan [Cozaar] 12.5 mg PO HS #30 tab 08/28/18 [Rx] Potassium Chloride ER [K-Dur 20] 20 meq PO DAILY #30 tab.er.prt 08/28/18 [Rx] Follow up Appointment(s)/Referral(s): [facility] [Provider Group] - 1 Week Patrick Kessler DO [Primary Care Provider] - 09/01/18 9:00 am [facility], [NON-STAFF] - 1-2 Days Alberto Coon MD [STAFF PHYSICIAN] - 4 Weeks Patient Instructions/Handouts: Heart Failure (DC), Gastrointestinal Bleeding (DC), Low-Sodium Diet (DC) Activity/Diet/Wound Care/Special Instructions: ECF Discharge Disposition: TRANSFER TO SNF/ECF
[2018-08-28 16:42] VITALS: BP 112/66; PULSE 64; RESP 17; TEMP 98.2
[2018-08-28] MEDS ORDERED: FAMOTIDINE 20 MG TAB PO SCH (21:00)
== END 2018-08-28 18:38 | DRG 291 ==
LOC: EC 14:22 → 3SCARD 18:06
PROVIDERS: ADMIT Hospitalist; ATTEND Hospitalist
DX: I11.0 Hypertensive heart disease with heart failure (principal); K57.31 Diverticulosis of large intestine without perforation or abscess with bleeding; K27.4 Chronic or unspecified peptic ulcer, site unspecified, with hemorrhage; I85.01 Esophageal varices with bleeding; D62 Acute posthemorrhagic anemia; E87.3 Alkalosis; I48.1 Persistent atrial fibrillation; J98.11 Atelectasis; N17.9 Acute kidney failure, unspecified; G72.1 Alcoholic myopathy; I50.33 Acute on chronic diastolic (congestive) heart failure; E66.9 Obesity, unspecified; E78.5 Hyperlipidemia, unspecified; E86.1 Hypovolemia; F10.20 Alcohol dependence, uncomplicated; F32.9 Major depressive disorder, single episode, unspecified; I25.10 Atherosclerotic heart disease of native coronary artery without angina pectoris; I25.2 Old myocardial infarction; I27.20 Pulmonary hypertension, unspecified; I48.0 Paroxysmal atrial fibrillation; I73.9 Peripheral vascular disease, unspecified; J44.9 Chronic obstructive pulmonary disease, unspecified; K22.70 Barrett's esophagus without dysplasia; K29.70 Gastritis, unspecified, without bleeding; K57.30 Diverticulosis of large intestine without perforation or abscess without bleeding; M19.91 Primary osteoarthritis, unspecified site; Z68.34 Body mass index [BMI] 34.0-34.9, adult; Z79.01 Long term (current) use of anticoagulants; Z79.899 Other long term (current) drug therapy; Z85.828 Personal history of other malignant neoplasm of skin; Z87.891 Personal history of nicotine dependence; Z95.1 Presence of aortocoronary bypass graft; Z95.2 Presence of prosthetic heart valve; Z95.5 Presence of coronary angioplasty implant and graft; I95.9 Hypotension, unspecified; T45.515A Adverse effect of anticoagulants, initial encounter; Z79.891 Long term (current) use of opiate analgesic
CPT/HCPCS: 36415; 71046; 71275; 72220; 80048; 80053; 82140; 82607; 82728; 83540; 83550; 83735; 83880; 84132; 84484; 85025; 85027; 85379; 85610; 85730; 93005; 94760; 96374; 99291

== ENCOUNTER 2018-09-07 15:48 | Inpatient (IN) | payer MEDICARE, OTHER ==
[2018-09-07] MEDS ORDERED: SODIUM CHLORIDE 0.9% 1,000 ML IV STA (16:01)
--- NOTE | 2018-09-07 16:10 | ED ---
Recheck HPI - General Chief Complaint: Recheck/Abnormal Lab/Rx Stated Complaint: Weakness Time Seen by Provider: 09/07/18 16:01 Source: patient, family, EMS, RN notes reviewed, old records reviewed Mode of arrival: EMS Limitations: no limitations - History of Present Illness Initial Comments: This is a 5-year-old male the ER for eversion of weakness, patient's of poor story presented for failure to thrive and abnormal lab tests. Patient is unable to give accurate history history. From EMS patient's chart as well as family who is at bedside. MD Complaint: abnormal lab (Low hemoglobin) -: unknown Returns Today for: Called Because of Abnormal Lab/Test Context: called for abnormal lab result Associated Symptoms: shortness of breath, malaise - Related Data Home Medications Medication Instructions Recorded Confirmed Atorvastatin [Lipitor] 80 mg PO HS@209910/06/14 09/07/18 Metoprolol Tartrate [Lopressor] 25 mg PO BID@0900,209910/06/14 09/07/18 [place]-3 Fatty Acids/Fish Oil [Fish 1 cap PO DAILY@89910/06/14 09/07/18 Oil 1,000 mg Softgel] Amiodarone HCl [Pacerone] 200 mg PO DAILY@0906/27/16 09/07/18 Apixaban [Eliquis] 5 mg PO BID@0900,209909/24/17 09/07/18 Ranitidine HCl [Zantac] 150 mg PO BID@0900,209905/30/18 09/07/18 Vitamin B Complex 1 cap PO DAILY@89906/07/18 09/07/18 HYDROcodone/APAP 5-325MG [[place] 1 tab PO Q8H PRN 08/16/18 09/07/18 5-325] Isosorbide Mononitrate ER [Imdur] 15 mg PO DAILY@89908/16/18 09/07/18 Spironolactone 50 mg PO DAILY@89908/16/18 09/07/18 Furosemide [Lasix] 40 mg PO DAILY@89909/07/18 09/07/18 Gabapentin [Neurontin] 100 mg PO TID@0900,1300,209909/07/18 09/07/18 Lactose-Reduced Food [Ensure Plus] 120 ml PO TID@1000,1400,2000 09/07/18 09/07/18 Losartan [Cozaar] 12.5 mg PO HS@2100 09/07/18 09/07/18 Potassium Chloride ER [K-Dur 20] 20 meq PO DAILY@0900 09/07/18 09/07/18 Previous Rx's Medication Instructions Recorded Nitroglycerin Sl Tabs [Nitrostat] 0.4 mg SUBLINGUAL Q5M PRN #25 tab 05/14/15 Allergies Allergy/AdvReac Type Severity Reaction Status Date / Time No Known Allergies Allergy Verified 09/07/18 17:31 Review of Systems ROS Statement: Those systems with pertinent positive or pertinent negative responses have been documented in the HPI. ROS Other: All systems not noted in ROS Statement are negative. Past Medical History Past Medical History: Atrial Fibrillation, Cancer, COPD, GI Bleed, Hyperlipidemia, Hypertension, Myocardial Infarction ([place]), Osteoarthritis (OA), Vascular Disorder Additional Past Medical History / Comment(s): PVD, BACK PAIN, SWELLING IN ANKLES AND FEET, hx SKIN CANCER Last Myocardial Infarction Date:: 01-20-13 History of Any Multi-Drug Resistant Organisms: None Reported Past Surgical History: Heart Catheterization, Heart Catheterization With Stent Additional Past Surgical History / Comment(s): aortic valve replacement 2012, aortogram, pt states 2 failed stent replacement-1 to each leg, PAIN CLINIC PROCEDURES, ABDOMINAL AORTOGRAM, Stent in right leg Past Anesthesia/Blood Transfusion Reactions: No Reported Reaction Date of Last Stent Placement:: 05/30/15 Past Psychological History: No Psychological Hx Reported Smoking Status: Former smoker Past Alcohol Use History: None Reported Past Drug Use History: None Reported - Past Family History Mother Family Medical History: Deep Vein Thrombosis (DVT) General Exam Limitations: no limitations General appearance: alert, in no apparent distress Head exam: Present: atraumatic, normocephalic, normal inspection Eye exam: Present: normal appearance, PERRL, EOMI. Absent: scleral icterus, conjunctival injection, periorbital swelling ENT exam: Present: normal exam, mucous membranes moist Neck exam: Present: normal inspection. Absent: tenderness, meningismus, lymphadenopathy Respiratory exam: Present: normal lung sounds bilaterally. Absent: respiratory distress, wheezes, rales, rhonchi, stridor Cardiovascular Exam: Present: regular rate, normal rhythm, normal heart sounds. Absent: systolic murmur, diastolic murmur, rubs, gallop, clicks GI/Abdominal exam: Present: soft, normal bowel sounds. Absent: distended, tenderness, guarding, rebound, rigid Extremities exam: Present: normal inspection, full ROM, normal capillary refill. Absent: tenderness, pedal edema, joint swelling, calf tenderness Back exam: Present: normal inspection Neurological exam: Present: alert, oriented X3, CN II-XII intact Psychiatric exam: Present: normal affect, normal mood Skin exam: Present: warm, dry, intact, normal color. Absent: rash Course Vital Signs 09/07/18 09/07/18 09/07/18 15:53 16:00 16:20 Temperature 97.1 F L Pulse Rate 69 66 Respiratory 28 H Rate Blood Pressure 121/40 121/40 122/52 O2 Sat by Pulse 96 97 98 Oximetry 09/07/18 09/07/18 09/07/18 16:40 17:20 17:40 Temperature Pulse Rate 70 69 65 Respiratory Rate Blood Pressure 120/43 115/39 116/40 O2 Sat by Pulse 97 98 Oximetry 09/07/18 09/07/18 09/07/18 17:45 18:00 18:30 Temperature Pulse Rate 65 65 68 Respiratory Rate Blood Pressure 116/40 112/40 108/40 O2 Sat by Pulse 98 97 98 Oximetry - Reevaluation(s) Reevaluation #1: 09/07/18 19:12 Medical record reviewed as well as prior labs Reevaluation #2: 09/07/18 19:12 No significant complaints per patient Reevaluation #3: 09/07/18 19:12 Patient be admitted for cardiology evaluation transfusion and diuresis Medical Decision Making - Medical Decision Making 68-year-old male the ER failure to thrive high-output heart failure and anemia and CHF on x-ray. Patient be admitted for diuresis and transfusion - Lab Data Result diagrams: 09/07/18 16:18 09/07/18 16:18 Lab Results 09/07/18 09/07/18 09/07/18 Range/Units 16:18 16:18 16:18 WBC 10.3 (3.8-10.6) k/uL RBC 2.35 L (4.30-5.90) m/uL Hgb 6.8 L* (13.0-17.5) gm/dL Hct 21.4 L (39.0-53.0) % MCV 90.8 (80.0-100.0) fL MCH 29.0 (25.0-35.0) pg MCHC 31.9 (31.0-37.0) g/dL RDW 17.8 H (11.5-15.5) % Plt Count 175 (150-450) k/uL Neutrophils % 88 % Lymphocytes % 4 % Monocytes % 5 % Eosinophils % 1 % Basophils % 0 % Neutrophils # 9.1 H (1.3-7.7) k/uL Lymphocytes # 0.4 L (1.0-4.8) k/uL Monocytes # 0.5 (0-1.0) k/uL Eosinophils # 0.1 (0-0.7) k/uL Basophils # 0.0 (0-0.2) k/uL Anisocytosis Slight PT (9.0-12.0) sec INR (<1.2) APTT (22.0-30.0) sec Sodium 135 L (137-145) mmol/L Potassium 5.3 H (3.5-5.1) mmol/L Chloride 105 (98-107) mmol/L Carbon Dioxide 22 (22-30) mmol/L Anion Gap 8 mmol/L BUN 55 H (9-20) mg/dL Creatinine 1.40 H (0.66-1.25) mg/dL Est GFR (CKD-EPI)AfAm 59 (>60 ml/min/1.73 sqM) Est GFR (CKD-EPI)NonAf 51 (>60 ml/min/1.73 sqM) Glucose 115 H (74-99) mg/dL Plasma Lactic Acid Faizan 1.0 (0.7-2.0) mmol/L Calcium 8.8 (8.4-10.2) mg/dL Phosphorus 4.1 (2.5-4.5) mg/dL Magnesium 2.0 (1.6-2.3) mg/dL Total Bilirubin 1.2 (0.2-1.3) mg/dL AST 76 H (17-59) U/L ALT 78 H (21-72) U/L Alkaline Phosphatase 106 (38-126) U/L Creatine Kinase 462 H (55-170) U/L Troponin I (0.000-0.034) ng/mL NT-Pro-B Natriuret Pep pg/mL Total Protein 6.3 (6.3-8.2) g/dL Albumin 2.9 L (3.5-5.0) g/dL Urine Color Urine Appearance (Clear) Urine pH (5.0-8.0) Ur Specific Emblem (1.001-1.035) Urine Protein (Negative) Urine Glucose (UA) (Negative) Urine Ketones (Negative) Urine Blood (Negative) Urine Nitrite (Negative) Urine Bilirubin (Negative) Urine Urobilinogen (<2.0) mg/dL Ur Leukocyte Esterase (Negative) 09/07/18 09/07/18 09/07/18 Range/Units 16:18 16:18 16:18 WBC (3.8-10.6) k/uL RBC (4.30-5.90) m/uL Hgb (13.0-17.5) gm/dL Hct (39.0-53.0) % MCV (80.0-100.0) fL MCH (25.0-35.0) pg MCHC (31.0-37.0) g/dL RDW (11.5-15.5) % Plt Count (150-450) k/uL Neutrophils % % Lymphocytes % % Monocytes % % Eosinophils % % Basophils % % Neutrophils # (1.3-7.7) k/uL Lymphocytes # (1.0-4.8) k/uL Monocytes # (0-1.0) k/uL Eosinophils # (0-0.7) k/uL Basophils # (0-0.2) k/uL Anisocytosis PT 11.4 (9.0-12.0) sec INR 1.1 (<1.2) APTT 25.2 (22.0-30.0) sec Sodium (137-145) mmol/L Potassium (3.5-5.1) mmol/L Chloride (98-107) mmol/L Carbon Dioxide (22-30) mmol/L Anion Gap mmol/L BUN (9-20) mg/dL Creatinine (0.66-1.25) mg/dL Est GFR (CKD-EPI)AfAm (>60 ml/min/1.73 sqM) Est GFR (CKD-EPI)NonAf (>60 ml/min/1.73 sqM) Glucose (74-99) mg/dL Plasma Lactic Acid Faizan (0.7-2.0) mmol/L Calcium (8.4-10.2) mg/dL Phosphorus (2.5-4.5) mg/dL Magnesium (1.6-2.3) mg/dL Total Bilirubin (0.2-1.3) mg/dL AST (17-59) U/L ALT (21-72) U/L Alkaline Phosphatase (38-126) U/L Creatine Kinase (55-170) U/L Troponin I 0.069 H* (0.000-0.034) ng/mL NT-Pro-B Natriuret Pep 86330 pg/mL Total Protein (6.3-8.2) g/dL Albumin (3.5-5.0) g/dL Urine Color Urine Appearance (Clear) Urine pH (5.0-8.0) Ur Specific Emblem (1.001-1.035) Urine Protein (Negative) Urine Glucose (UA) (Negative) Urine Ketones (Negative) Urine Blood (Negative) Urine Nitrite (Negative) Urine Bilirubin (Negative) Urine Urobilinogen (<2.0) mg/dL Ur Leukocyte Esterase (Negative) 09/07/18 Range/Units 18:28 WBC (3.8-10.6) k/uL RBC (4.30-5.90) m/uL Hgb (13.0-17.5) gm/dL Hct (39.0-53.0) % MCV (80.0-100.0) fL MCH (25.0-35.0) pg MCHC (31.0-37.0) g/dL RDW (11.5-15.5) % Plt Count (150-450) k/uL Neutrophils % % Lymphocytes % % Monocytes % % Eosinophils % % Basophils % % Neutrophils # (1.3-7.7) k/uL Lymphocytes # (1.0-4.8) k/uL Monocytes # (0-1.0) k/uL Eosinophils # (0-0.7) k/uL Basophils # (0-0.2) k/uL Anisocytosis PT (9.0-12.0) sec INR (<1.2) APTT (22.0-30.0) sec Sodium (137-145) mmol/L Potassium (3.5-5.1) mmol/L Chloride (98-107) mmol/L Carbon Dioxide (22-30) mmol/L Anion Gap mmol/L BUN (9-20) mg/dL Creatinine (0.66-1.25) mg/dL Est GFR (CKD-EPI)AfAm (>60 ml/min/1.73 sqM) Est GFR (CKD-EPI)NonAf (>60 ml/min/1.73 sqM) Glucose (74-99) mg/dL Plasma Lactic Acid Faizan (0.7-2.0) mmol/L Calcium (8.4-10.2) mg/dL Phosphorus (2.5-4.5) mg/dL Magnesium (1.6-2.3) mg/dL Total Bilirubin (0.2-1.3) mg/dL AST (17-59) U/L ALT (21-72) U/L Alkaline Phosphatase (38-126) U/L Creatine Kinase (55-170) U/L Troponin I (0.000-0.034) ng/mL NT-Pro-B Natriuret Pep pg/mL Total Protein (6.3-8.2) g/dL Albumin (3.5-5.0) g/dL Urine Color Yellow Urine Appearance Clear (Clear) Urine pH 5.5 (5.0-8.0) Ur Specific Emblem 1.012 (1.001-1.035) Urine Protein Negative (Negative) Urine Glucose (UA) Negative (Negative) Urine Ketones Negative (Negative) Urine Blood Negative (Negative) Urine Nitrite Negative (Negative) Urine Bilirubin Negative (Negative) Urine Urobilinogen 2.0 (<2.0) mg/dL Ur Leukocyte Esterase Negative (Negative) - EKG Data -: EKG Interpreted by Me (EKG shows sinus rhythm at 67, SD 40, QRS 06, QTc 443) - Radiology Data Radiology results: report reviewed (Chest x-rays positive for CHF), image reviewed Critical Care Time Critical Care Time: Yes Total Critical Care Time: 31 Disposition Clinical Impression: Weakness, Hx of CABG, NSTEMI (non-ST elevated myocardial infarction), Acute pulmonary edema, Chronic anemia Disposition: ADMITTED IP TO THIS HOSP Condition: Fair Is patient prescribed a controlled substance at d/c from ED?: No Referrals: Kyler,Jose, MD [Primary Care Provider] - 1-2 days
[2018-09-07 16:35] LABS: Anisocytosis Slight; Basophils % (A) 0 %; Eosinophils # (A) 0.1 k/uL (0-0.7); Eosinophils % (A) 1 %; HCT 21.4 % (39.0-53.0); Lymphocytes # (A) 0.4 k/uL (1.0-4.8); Lymphocytes % (A) 4 %; MCHC 31.9 g/dL (31.0-37.0); MCV 90.8 fL (80.0-100.0); Mean Platelet Volume 7.4; Monocytes # (A) 0.5 k/uL (0-1.0); Monocytes % (A) 5 %; Neutrophils # (A) 9.1 k/uL (1.3-7.7); Neutrophils % (A) 88 %; Platelet Count 175 k/uL (150-450); RBC 2.35 m/uL (4.30-5.90); RDW 17.8 % (11.5-15.5); WBC 10.3 k/uL (3.8-10.6)
[2018-09-07 16:36] LABS: HGB 6.8 gm/dL (13.0-17.5)
[2018-09-07 16:45] LABS: INR 1.1 (<1.2); Partial Thromboplastin Time 25.2 sec (22.0-30.0); Prothrombin Time 11.4 sec (9.0-12.0)
[2018-09-07 16:48] LABS: Albumin 2.9 g/dL (3.5-5.0); Calcium 8.8 mg/dL (8.4-10.2); Phosphorus 4.1 mg/dL (2.5-4.5); Potassium 5.3 mmol/L (3.5-5.1); Total Bilirubin 1.2 mg/dL (0.2-1.3); Total Protein 6.3 g/dL (6.3-8.2)
--- NOTE | 2018-09-07 17:46 | XR ---
EXAMINATION: XR chest 2V DATE AND TIME: 09/07/2018 4:56 PM CLINICAL INDICATION: PHH; Weakness TECHNIQUE: Departmental protocol COMPARISON: 08/24/2018 FINDINGS: There is interval increase in the silhouetting of the arborizing bilateral pulmonary vascul ature, consistent with worsening interstitial phase pulmonary edema. No focal consolidative opacity t o suggest mary alveolar phase pulmonary edema. No pneumothorax or other abnormal gas collections. Small bilateral pleural effusions are most conspicuous on the lateral radiograph. Moderately enlarged cardiac silhouette, sternal sutures, and mediastinal clips redemonstrated. No definite acute skeletal or soft tissue findings. IMPRESSION: Interval worsening in the overall lung inflation; marked interstitial phase cardiogenic pulmonary mohamud ma pattern.
--- NOTE | 2018-09-07 17:57 | CT ---
EXAMINATION: CT brain wo con DATE AND TIME: 09/07/2018 5:39 PM CLINICAL INDICATION: PHH; pain TECHNIQUE: Standard departmental protocol.; 1180.4; COMPARISON: 06/07/2018 FINDINGS: The calvarium is intact. There is no intracranial hemorrhage. There is no intracranial mass or mass effect. No definite new intra-axial or extra-axial attenuation defect. The paranasal sinuses, middle ear cavities, and mastoid sinus air cells are clear. The orbits are unremarkable. IMPRESSION: NO ACUTE PROCESS.
[2018-09-07 18:46] LABS: Appearance,Urine Clear (Clear); Bilirubin,Urine Negative (Negative); Blood,Urine Negative (Negative); Color,Urine Yellow; Glucose,Urine (UA) Negative (Negative); Ketones,Urine Negative (Negative); Leukocyte Esterase,Urine Negative (Negative); Nitrite,Urine Negative (Negative); PH, Urine 5.5 (5.0-8.0); Protein,Urine Negative (Negative); Specific Gravity,Urine 1.012 (1.001-1.035)
[2018-09-07] MEDS ORDERED: ASPIRIN 325 MG TAB PO STA (19:10)
[2018-09-07 22:35] LABS: Anisocytosis Slight; Basophils % (A) 0 %; Eosinophils # (A) 0.1 k/uL (0-0.7); Eosinophils % (A) 1 %; HCT 24.7 % (39.0-53.0); HGB 7.7 gm/dL (13.0-17.5); Hypochromasia Slight; Lymphocytes # (A) 0.5 k/uL (1.0-4.8); Lymphocytes % (A) 4 %; MCH 29.2 pg (25.0-35.0); MCHC 31.2 g/dL (31.0-37.0); MCV 93.4 fL (80.0-100.0); Mean Platelet Volume 7.7; Monocytes # (A) 0.6 k/uL (0-1.0); Monocytes % (A) 5 %; Neutrophils # (A) 10.3 k/uL (1.3-7.7); Neutrophils % (A) 89 %; Platelet Count 193 k/uL (150-450); RBC 2.64 m/uL (4.30-5.90); RDW 17.8 % (11.5-15.5); WBC 11.7 k/uL (3.8-10.6)
[2018-09-07 23:05] LABS: Creatine Kinase MB 2.7 ng/mL (0.0-2.4)
[2018-09-07 23:06] LABS: Troponin I 0.061 ng/mL (0.000-0.034)
[2018-09-07 23:40] LABS: Glucose,Whole Blood 182 mg/dL (75-99)
[2018-09-07] MEDS: FUROSEMIDE 10 MG/ML 4 ML VIAL IV SCH (23:40)
--- NOTE | 2018-09-08 00:40 | XR ---
EXAM: XR Chest, 1 View CLINICAL HISTORY: shortness of breath TECHNIQUE: Frontal view of the chest. COMPARISON: 09/07/2018 FINDINGS: Lungs: Persistent diffuse bilateral interstitial and alveolar opacities. Pleural space: Unremarkable. No pneumothorax. Heart: Stable cardiomediastinal silhouette. Mediastinum: Stable postoperative mediastinum. Bones/joints: No acute osseous abnormality. Tubes, lines and devices: Telemetry leads overlie the patient. IMPRESSION: No significant interval change since prior exam.
[2018-09-08 01:17] LABS: Glucose,Whole Blood 184 mg/dL (75-99)
[2018-09-08 05:39] LABS: Anisocytosis Slight; Basophils % (A) 0 %; Eosinophils % (A) 0 %; HCT 22.7 % (39.0-53.0); HGB 7.2 gm/dL (13.0-17.5); Hypochromasia Marked; Lymphocytes # (A) 0.3 k/uL (1.0-4.8); Lymphocytes % (A) 2 %; MCH 29.9 pg (25.0-35.0); MCHC 31.8 g/dL (31.0-37.0); MCV 94.1 fL (80.0-100.0); Macrocytosis Slight; Mean Platelet Volume 8.1; Monocytes # (A) 0.8 k/uL (0-1.0); Monocytes % (A) 5 %; Neutrophils # (A) 14.2 k/uL (1.3-7.7); Neutrophils % (A) 92 %; Platelet Count 173 k/uL (150-450); RBC 2.41 m/uL (4.30-5.90); WBC 15.5 k/uL (3.8-10.6)
[2018-09-08 05:46] LABS: Potassium 5.3 mmol/L (3.5-5.1); Total Bilirubin 1.8 mg/dL (0.2-1.3); Total Protein 6.6 g/dL (6.3-8.2)
[2018-09-08 06:10] LABS: Glucose,Whole Blood 123 mg/dL (75-99)
[2018-09-08] MEDS ORDERED: IPRATROPIUM-ALBUTEROL 3 ML NEB INHALATION PRN (07:29)
[2018-09-08 08:05] LABS: Creatine Kinase MB 2.6 ng/mL (0.0-2.4)
[2018-09-08 08:07] LABS: Troponin I 0.773 ng/mL (0.000-0.034)
[2018-09-08] MEDS: IPRATROPIUM-ALBUTEROL 3 ML NEB INHALATION SCH ×3 (08:54→20:12)
[2018-09-08] MEDS ORDERED: ASPIRIN 325 MG TAB PO SCH (09:00)
--- NOTE | 2018-09-08 09:27 | CONS ---
CONSULTATION PULMONARY CRITICAL CARE CONSULTATION: DATE OF SERVICE: 09/08/2018 This is a 68-year-old male who apparently resides at [facility] on the [facility]. The patient is a very poor historian and most of the history is obtained from family members in the ER report and other data from all records. He apparently presented to the ER for complaints of weakness. The patient apparently was also having abnormal laboratory data including a low hemoglobin and failure to thrive. He was admitted to the hospital on September 07. According to the ER aby, the admission diagnosis was that of weakness, previous history of bypass grafting, non ST-segment elevation myocardial infarction, acute pulmonary edema, chronic anemia. He was seen by Dr. Medrano in the emergency room and admitted to the hospital. He himself cannot give any history. Currently, the patient is in the ICU. He was transferred here last night. He apparently developed respiratory distress on the floor. He was thought to have pulmonary edema. His chest x-ray was consistent with edema and his N-terminal proBNP was nearly 22,000. He was given IV Lasix, placed on BiPAP at 12 and 5 and initially at 100%, transferred to the ICU. The patient initially apparently was a DNR and was not to be transferred, but subsequent to that, apparently family said he was a FULL CODE, but did not want long-term life support. Currently, he is on BiPAP at 12 and 5 and 50%. Not receiving any IVs. We are going to switch back to nasal O2 of 4-5 L. The patient's N-terminal proBNP was quite high and the chest x-ray was consistent with CHF. HOME MEDICATIONS: Reviewed. He is on Lipitor, metoprolol, fish oil, amiodarone, Eliquis, ranitidine, vitamin B, [place], Imdur, Aldactone, Lasix, Neurontin, Ensure Plus, Cozaar, potassium chloride, sublingual nitroglycerin. ALLERGIES: Denied. MEDICAL HISTORY: Heart failure, atrial fibrillation, COPD, GI bleed, hyperlipidemia, hypertension, myocardial infarction, DJD, peripheral vascular disease, chronic back pain, skin cancer. SURGICAL HISTORY: Includes heart catheterization with stent, aortic valve replacement, aortogram with femoral stent and some other minor procedures. SOCIAL HISTORY: Positive for previous tobacco use. Apparently alcohol and illicit drugs are denied. FAMILY HISTORY: Of note was the mother with a DVT. REVIEW OF SYSTEMS: Could not really accurately be obtained. Patient is very confused and disoriented. Apparently according to the ER aby related primarily to poor oral intake, not eating, failure to thrive, profound weakness. Other review of systems is not known. The patient appears not to be in any pain. Current vital signs are reviewed, temperature is 99, heart rate 82, respiratory rate 19, blood pressure 130/52, mean 78, 4 L saturation 93%. Appears in no acute distress. HEENT: Examination is grossly unremarkable. Mucous membranes are moist. No oral lesions. BiPAP mask in place. NECK: Supple. Full range of motion. No adenopathy or thyromegaly. Neck veins are flat. CARDIOVASCULAR: Examination reveals irregular rhythm and rate. Heart rate about 82 beats per minute. He is clearly in atrial fibrillation. S1, S2 normal. No distinct murmur noted. Heart sounds are distant. LUNGS: Some bibasilar crackles. Breath sounds are diminished. No wheezes or rhonchi. ABDOMEN: Soft. Bowel sounds are heard. EXTREMITIES: Intact. Significant doughy edema noted. Pulses are intact. No cyanosis or clubbing. SKIN: Without rash. NEUROLOGIC: Examination is difficult to assess. He does seem awake and oriented. Does move all 4 extremities. LABORATORY DATA: Reviewed. White count 15.5, hemoglobin 7.2, hematocrit 22.7, platelet count is 173,000. His sodium 138, potassium 5.3, chloride is 105, CO2 is 22, anion gap 11, which is normal. BUN and creatinine were 53 and 1.49. His total bilirubin was 1.8, AST 68, ALT 76. His N-terminal proBNP was nearly 22,000. Troponin was 0.061. Urine was negative. X-RAY: On admission and subsequent chest x-ray was consistent with interstitial edema, consistent with fluid overload. There is no significant interval change on follow up chest x-ray. CT of the brain showed no acute process. ASSESSMENT: 1. Acute hypoxemic respiratory failure secondary to congestive heart failure, improved on BiPAP and diuretic therapy. 2. History of chronic atrial fibrillation. 3. Skin cancer. 4. Possible underlying chronic obstructive pulmonary disease from previous tobacco use. 5. History of gastrointestinal bleed. 6. Hyperlipidemia. 7. History of hypertension. 8. Myocardial infarction. 9. Degenerative joint disease. 10.Peripheral vascular disease. 11.Status post aortic valve replacement and previous heart catheterization with stent placement. PLAN: The patient is currently doing reasonably well here in the ICU. He is receiving IV Lasix. He is not receiving any IV fluids. He come off the BiPAP this morning. He likely may be able to be transferred back out to the floor. Current currently his medications are reviewed. They include aspirin Lasix. The IV has been discontinued. Additional recommendations and suggestions are forthcoming. Prognosis is guarded. Will continue to follow. Labs, x-rays, medications are reviewed. Problem list reviewed. Again, the patient is a very poor historian. Code status was addressed last night. MMODL / IJN: [id number] /
[2018-09-08] MEDS: FUROSEMIDE 10 MG/ML 4 ML VIAL IV SCH (09:56)
[2018-09-08] MEDS: SODIUM CHLORIDE 0.9% 1,000 ML IV SCH (09:57)
--- NOTE | 2018-09-08 11:27 | CONS ---
CONSULTATION This is a 68-year-old gentleman, a patient who was recently in [facility] and discharged. He has a chronic anemia, atrial fibrillation which is paroxysmal in nature. Status post aortocoronary bypass surgery as well as the aortic valve replacement with a tissue valve. He also presents with diastolic heart failure usually. He was discharged home to an extended care facility and came into the hospital with lethargy, weakness, lack of energy, elevated white count and hemoglobin that was much lower at 6.8. After arrival to the hospital, he was also found to be in heart failure with a BNP in the range of 21,900. I was asked to see him because of the elevated troponin and increased BNP and dye and heart failure. The patient has history of diastolic heart failure, chronic anemia and a valve replacement and bypass surgery. Possibility of sepsis is also being considered with elevated white count in this patient. He has received some additional Lasix and he is resting comfortably. Apparently was admitted to the telemetry unit and transferred here because of hypoxia placed on a BiPAP, but this morning he seems to be feeling much better. In view of his atrial fibrillation, he has been on Eliquis 5 mg b.i.d., but because of elevated creatinine and recent bleed, I am recommending we decrease it to 2.5 mg b.i.d. and hydrate him with 50 cc/hour normal saline and also obtain a stool for occult blood. PAST MEDICAL HISTORY: Remarkable for aortocoronary bypass surgery and aortic valve replacement with a tissue valve. History of prior VT, paroxysmal atrial fibrillation and also history of some peripheral vascular disease. MEDICATIONS: At home with the [facility] medications at home include atorvastatin 80 mg daily, metoprolol 25 mg b.i.d., amiodarone 200 mg daily, Eliquis 5 mg b.i.d., vitamin supplements, Imdur 50 mg daily, Aldactone 50 mg daily, gabapentin, losartan 12.5 mg daily and potassium supplements. No known allergies. PHYSICAL EXAMINATION: Blood pressure is 108/70, pulse rate 70 per minute appears to be sinus with first- degree. HEENT unremarkable. Fundus was not examined by me. NECK: Supple there is JVD of 1 cm no carotid bruit heart exam reveals S1, S2 with a short systolic murmur at the base is also heard at left sternal border lungs reveal diminished air entry. Abdomen is soft, nontender. Lower extremities reveal diminished pulses with mild edema. Central nervous system is grossly within normal limits with generalized weakness. With generalized weakness. The patient. IMPRESSION: 1. Exacerbation of diastolic heart failure. 2. Rule out sepsis. 3. Anemia, chronic with worsening hemoglobin. 4. Rule out any gastrointestinal bleed. RECOMMENDATION: I am recommending we decrease Eliquis, hydrate him cautiously. Workup for sepsis is in progress. I would also recommend a stool for occult blood. Cardiac-bernal prognosis remains guarded with multiple comorbid conditions. Thank you very much for the consult. MMDOMIL / ENEDINAN: [id number] /
[2018-09-08] MEDS: APIXABAN 2.5 MG TABLET PO SCH ×2 (12:42→20:39)
--- NOTE | 2018-09-08 15:37 | FL ---
EXAMINATION TYPE: FL barium swallow w video DATE OF EXAM: 09/08/2018 MODIFIED SWALLOW / DEGLUTITION STUDY CLINICAL HISTORY: Dysphagia. TECHNIQUE: Deglutition study is performed utilizing thin liquid barium, honey and nectar thick liqui d barium, barium thick applesauce, and barium coated cracker. 2 minutes and 36 seconds of fluoroscopy time was utilized with 0 images saved as the examination was video recorded. COMPARISON: None. FINDINGS: The oral and pharyngeal phases show satisfactory initiation and propagation with all modali ties tested. Deep laryngeal penetration is seen with a thin barium consistency to the level of vocal cords on repeated swallows. No mary aspiration was appreciated. Laryngeal penetration was improved w ith the chin tuck maneuver. Normal mastication is seen with solid modalities tested. Vallecular, pir iform sinuses, and pharyngeal residue was seen with honey thick, barium thick applesauce and barium c oated cracker. IMPRESSION: Deep laryngeal penetration with the thin barium consistency only improved with chin to ma neuver. Please refer to speech therapist notes for further details if necessary.
--- NOTE | 2018-09-08 19:54 | P.HPIM ---
History of Present Illness H&P Date: 09/08/18 Chief Complaint: tired tired History of presenting complaint: This is a 68-year-old patient who follows with Dr. Chávez, was at [facility]. She was discharged on August 28. Patient was admitted last time with CHF exacerbation and also had the GI bleed. Patient was followed conservatively for the same. Eliquis had been held. And then reintroduced. Chronic stable medi ellen conditions include hypertensive heart disease, bicuspid aortic valve, peripheral artery disease with stent, or severe arthritis, coronary artery disease, hyperlipidemia, Zhu's esophagus, chronic colonic diverticulosis, paroxysmal atrial fibrillation for which patient been on Eliquis,. Patient's history is primary given by the daughter the bedside. At the assisted daughter states patient has not been doing too well. Easily gets short of breath. Has not really involved in therapy. Not much of an appetite. We will drink some ensure etc. Lethargic at times. Confused at times. Other times more awake. Patient yesterday was found to be short of breath. Was hypoxic. He required BiPAP. Became more confused. On eye patient's morbid ICU. Required BiPAP and Lasix. Patient not been reported of any GI bleed. Hemoglobin was down to 6.8. Repeat hemoglobin was above 7. This morning patient is in the ICU. Doesn't speak much himself arousable. The the patient often dozes off. No fever or chills reported Review of systems: GEN.: Tired EYES: None HEENT: None NECK: None RESPIRATORY: Short of breath with some cough CARDIOVASCULAR: Slight edema GASTROINTESTINAL: None GENITOURINARY: None MUSCULOSKELETAL: Pain in some joints and muscles LYMPHATICS: None HEMATOLOGICAL: None PSYCHIATRY: Sometimes confused NEUROLOGICAL: Lethargic] Past medical history: CHF with diastolic dysfunction EF 50-55%, hypertensive heart disease, bicuspid aortic valve, peripheral arterial disease with stent, osteoarthritis, coronary artery disease, hyperlipidemia, Zhu's esophagus from history of alcoholism, chronic colonic diverticulosis, paroxysmal atrial fibrillation, recent GI bleed cause unknown, peripheral neuropathy Social history: Smoked for more than 50 years. Stopped in 2014. Was drinking up to 9 beers a day until a few weeks ago. Had been living alone. Currently at the [facility]. Does use a walker otherwise untreated recently. Family history: DVT Physical examination: VITAL SIGNS: 97.1, 28, 69, 121/40, 96% on 4 L GENERAL: BMI 34.4, sitting up in bed lethargic but arousable. EYES: Pupils equal. Conjunctiva normal. HEENT: External appearance of nose and ears normal, oral cavity grossly normal. NECK: JVD not raised; masses not palpable. HEART: First and second heart sounds are normal; some edema. LUNGS: Respiratory rate increased, decreased breaths on some crackles. ABDOMEN: Soft, nontender, liver spleen not palpable, no masses palpable. LYMPHATICS: No lymph nodes palpable in the axilla and neck. PSYCH: Lethargic but arousable male some occasional questionl. NEUROLOGICAL: Cranial nerves grossly intact; no facial asymmetry, power and sensation grossly intact. Investigations, reviewed in the clinical context White count 11.7, hemoglobin 6.8, platelets 175, potassium 5.3, BUN 55, creatinine 1.40 Troponin 0.069 ProBNP 21,900 Chest x-ray film personally reviewed by me shows pulmonary edema EKG tracing personally reviewed by me shows flipped T waves in lead inferior leads and the lateral leads Computed tomography scan of the brain-unremarkable Assessment: -Acute on chronic congestive heart failure from severe Sonny dysfunction EF 50- 55% -Hypertensive heart disease Essential hypertension Bicuspid aortic valve is peripheral artery disease with a prior stent next primary osteoarthritis and coronary artery disease and hyperlipidemia next Zhu's esophagus with history of alcoholism Chronic colonic diverticulosis and obesity BMI 34 Paroxysmal atrial fibrillation for which patient chronically on Eliquis -Acute metabolic encephalopathy, multifactorial -Acute medical debility multifactorial Plan: Will put the patient on Lasix Fanny 24 hours. Follow electrolytes closely. Patient may have underlying depression component. Patient has refused a psych consult last admission. This speak at length with the patient's daughter the bedside. Prognosis guarded. Cardiology and pulmonary were consulted. Encourage oral intake. Past Medical History Past Medical History: Atrial Fibrillation, Coronary Artery Disease (CAD), Cancer, COPD, GI Bleed, Hyperlipidemia, Hypertension, Liver Disease, Myocardial Infarction (ND), Osteoarthritis (OA), Vascular Disorder Additional Past Medical History / Comment(s): PVD, BACK PAIN, SWELLING IN ANKLES AND FEET, hx SKIN CANCER,NEUROPATHY,ALCOHOL INDUCED MYOPATHY, BARETTS ESOPHAGUS, COLONIC DIVERTICULOSIS Last Myocardial Infarction Date:: 01-20-13 History of Any Multi-Drug Resistant Organisms: None Reported Past Surgical History: Heart Catheterization, Heart Catheterization With Stent Additional Past Surgical History / Comment(s): aortic valve replacement 2013, aortogram, pt states 2 failed stent replacement-1 to each leg, PAIN CLINIC PROCEDURES, ABDOMINAL AORTOGRAM, Stent in right leg Past Anesthesia/Blood Transfusion Reactions: No Reported Reaction Date of Last Stent Placement:: 05/30/15 Smoking Status: Former smoker - Past Family History Mother Family Medical History: Deep Vein Thrombosis (DVT) Medications and Allergies Home Medications Medication Instructions Recorded Confirmed Type Atorvastatin [Lipitor] 80 mg PO HS@209910/06/14 09/07/18 History Metoprolol Tartrate [Lopressor] 25 mg PO BID@0900,209910/06/14 09/07/18 History [place]-3 Fatty Acids/Fish Oil [Fish 1 cap PO DAILY@0910/06/14 09/07/18 History Oil 1,000 mg Softgel] Nitroglycerin Sl Tabs [Nitrostat] 0.4 mg SUBLINGUAL Q5M PRN #25 tab 05/14/15 Rx Amiodarone HCl [Pacerone] 200 mg PO DAILY@0900 06/27/16 09/07/18 History Apixaban [Eliquis] 5 mg PO BID@0900,209909/24/17 09/07/18 History Ranitidine HCl [Zantac] 150 mg PO BID@0900,209905/30/18 09/07/18 History Vitamin B Complex 1 cap PO DAILY@0900 06/07/18 09/07/18 History HYDROcodone/APAP 5-325MG [[place] 1 tab PO Q8H PRN 08/16/18 09/07/18 History 5-325] Isosorbide Mononitrate ER [Imdur] 15 mg PO DAILY@89908/16/18 09/07/18 History Spironolactone 50 mg PO DAILY@89908/16/18 09/07/18 History Furosemide [Lasix] 40 mg PO DAILY@89909/07/18 09/07/18 History Gabapentin [Neurontin] 100 mg PO TID@0900,1300,209909/07/18 09/07/18 History Lactose-Reduced Food [Ensure Plus] 120 ml PO TID@1000,1400,199909/07/18 09/07/18 History Losartan [Cozaar] 12.5 mg PO HS@2100 09/07/18 09/07/18 History Potassium Chloride ER [K-Dur 20] 20 meq PO DAILY@0900 09/07/18 09/07/18 History Allergies Allergy/AdvReac Type Severity Reaction Status Date / Time No Known Allergies Allergy Verified 09/07/18 17:31 Physical Exam Vitals: Vital Signs Temp Pulse Pulse Resp BP BP Pulse Ox 09/08/18 09:11 76 09/08/18 09:01 74 20 107/42 100 09/08/18 08:55 76 09/08/18 08:00 98.2 F 79 21 107/47 97 09/08/18 07:00 82 19 130/52 93 L 09/08/18 06:51 18 96 09/08/18 06:00 85 23 106/42 98 09/08/18 05:00 99 F 73 18 105/42 98 09/08/18 04:00 72 18 116/72 99 09/08/18 03:00 82 20 103/50 97 09/08/18 02:30 81 19 112/45 97 09/08/18 02:00 89 22 118/53 98 09/08/18 01:30 96 22 118/54 97 09/08/18 01:07 97.1 F L 101 H 31 H 99 09/08/18 00:20 101 H 32 H 134/63 100 09/08/18 00:15 102 H 35 H 128/87 100 09/07/18 23:50 102 H 36 H 155/69 94 L 09/07/18 23:35 36 H 108/59 82 L 09/07/18 23:28 38 H 67 L 09/07/18 21:10 76 21 09/07/18 21:00 97.9 F 76 19 106/52 91 L 09/07/18 19:52 71 16 106/42 98 09/07/18 18:30 68 108/40 98 09/07/18 18:00 65 112/40 97 09/07/18 17:45 65 116/40 98 09/07/18 17:40 65 116/40 98 09/07/18 17:20 69 115/39 97 09/07/18 16:40 70 120/43 09/07/18 16:20 66 122/52 98 09/07/18 16:00 121/40 97 09/07/18 15:53 97.1 F L 69 28 H 121/40 96 Intake and Output 09/07/18 09/08/18 09/08/18 22:59 06:59 14:59 Output Total 450 565 80 Balance -450 -565 -80 Output: Urine 450 565 80 Straight 450 Other: Voiding Method Diaper Indwelling Catheter Incontinent Weight 108.862 kg Results CBC & Chem 7: 09/08/18 04:31 09/08/18 04:31 Labs: Abnormal Lab Results - Last 24 Hours (Table) 09/07/18 09/07/18 09/07/18 Range/Units 16:18 16:18 16:18 WBC (3.8-10.6) k/uL RBC 2.35 L (4.30-5.90) m/uL Hgb 6.8 L* (13.0-17.5) gm/dL Hct 21.4 L (39.0-53.0) % RDW 17.8 H (11.5-15.5) % Neutrophils # 9.1 H (1.3-7.7) k/uL Lymphocytes # 0.4 L (1.0-4.8) k/uL Sodium 135 L (137-145) mmol/L Potassium 5.3 H (3.5-5.1) mmol/L BUN 55 H (9-20) mg/dL Creatinine 1.40 H (0.66-1.25) mg/dL Glucose 115 H (74-99) mg/dL POC Glucose (mg/dL) (75-99) mg/dL Total Bilirubin (0.2-1.3) mg/dL AST 76 H (17-59) U/L ALT 78 H (21-72) U/L Creatine Kinase 462 H (55-170) U/L CK-MB (CK-2) (0.0-2.4) ng/mL Troponin I 0.069 H* (0.000-0.034) ng/mL Albumin 2.9 L (3.5-5.0) g/dL 09/07/18 09/07/18 09/07/18 Range/Units 22:20 22:20 22:20 WBC 11.7 H (3.8-10.6) k/uL RBC 2.64 L (4.30-5.90) m/uL Hgb 7.7 L (13.0-17.5) gm/dL Hct 24.7 L (39.0-53.0) % RDW 17.8 H (11.5-15.5) % Neutrophils # 10.3 H (1.3-7.7) k/uL Lymphocytes # 0.5 L (1.0-4.8) k/uL Sodium 136 L (137-145) mmol/L Potassium (3.5-5.1) mmol/L BUN 50 H (9-20) mg/dL Creatinine 1.49 H (0.66-1.25) mg/dL Glucose 127 H (74-99) mg/dL POC Glucose (mg/dL) (75-99) mg/dL Total Bilirubin (0.2-1.3) mg/dL AST (17-59) U/L ALT (21-72) U/L Creatine Kinase (55-170) U/L CK-MB (CK-2) 2.7 H (0.0-2.4) ng/mL Troponin I 0.061 H* (0.000-0.034) ng/mL Albumin (3.5-5.0) g/dL 09/07/18 09/08/18 09/08/18 Range/Units 23:39 01:06 04:31 WBC 15.5 H (3.8-10.6) k/uL RBC 2.41 L (4.30-5.90) m/uL Hgb 7.2 L (13.0-17.5) gm/dL Hct 22.7 L (39.0-53.0) % RDW 18.0 H (11.5-15.5) % Neutrophils # 14.2 H (1.3-7.7) k/uL Lymphocytes # 0.3 L (1.0-4.8) k/uL Sodium (137-145) mmol/L Potassium (3.5-5.1) mmol/L BUN (9-20) mg/dL Creatinine (0.66-1.25) mg/dL Glucose (74-99) mg/dL POC Glucose (mg/dL) 182 H 184 H (75-99) mg/dL Total Bilirubin (0.2-1.3) mg/dL AST (17-59) U/L ALT (21-72) U/L Creatine Kinase (55-170) U/L CK-MB (CK-2) (0.0-2.4) ng/mL Troponin I (0.000-0.034) ng/mL Albumin (3.5-5.0) g/dL 09/08/18 09/08/18 09/08/18 Range/Units 04:31 05:59 07:01 WBC (3.8-10.6) k/uL RBC (4.30-5.90) m/uL Hgb (13.0-17.5) gm/dL Hct (39.0-53.0) % RDW (11.5-15.5) % Neutrophils # (1.3-7.7) k/uL Lymphocytes # (1.0-4.8) k/uL Sodium (137-145) mmol/L Potassium 5.3 H (3.5-5.1) mmol/L BUN 53 H (9-20) mg/dL Creatinine 1.49 H (0.66-1.25) mg/dL Glucose (74-99) mg/dL POC Glucose (mg/dL) 123 H (75-99) mg/dL Total Bilirubin 1.8 H (0.2-1.3) mg/dL AST 68 H (17-59) U/L ALT 76 H (21-72) U/L Creatine Kinase (55-170) U/L CK-MB (CK-2) 2.6 H (0.0-2.4) ng/mL Troponin I 0.773 H* (0.000-0.034) ng/mL Albumin 3.0 L (3.5-5.0) g/dL Microbiology - Last 24 Hours (Table) 09/07/18 18:28 Urine Culture - Preliminary Urine,Catheterized Thrombosis Risk Factor Assmnt - Choose All That Apply Any of the Below Risk Factors Present?: Yes Each Factor Represents 1 point: Medical pt on bed rest, Obesity (BMI >25), S wollen legs (current) Other Risk Factors: Yes Each Risk Factor Represents 2 Points: Age 61-74 years, Patient confined to bed Other congenital or acquired thrombophilia - If yes, enter type in comment: No Thrombosis Risk Factor Assessment Total Risk Factor Score: 7 Thrombosis Risk Factor Assessment Level: High Risk
[2018-09-08] MEDS: GABAPENTIN 100 MG CAP PO SCH (20:38)
[2018-09-08] MEDS: FUROSEMIDE 100 MG in SODIUM CHLORIDE 0.9% 90 ML IV SCH (20:39)
[2018-09-08] MEDS ORDERED: ATORVASTATIN 80 MG TAB PO SCH (21:00)
[2018-09-08] MEDS: HYDROcodone/APAP 5-325MG 1 EACH TAB PO PRN (21:33)
[2018-09-09] MEDS ORDERED: HYDROcodone/APAP 5-325MG 1 EACH TAB ONE (04:15)
[2018-09-09] MEDS ORDERED: IPRATROPIUM-ALBUTEROL 3 ML NEB ONE (04:15)
[2018-09-09] MEDS: FUROSEMIDE 100 MG in SODIUM CHLORIDE 0.9% 90 ML IV SCH (05:35)
[2018-09-09 05:52] LABS: Calcium 8.6 mg/dL (8.4-10.2); Potassium 4.5 mmol/L (3.5-5.1)
[2018-09-09] MEDS: IPRATROPIUM-ALBUTEROL 3 ML NEB INHALATION SCH ×3 (06:49→19:15)
[2018-09-09 07:09] LABS: Anisocytosis Slight; Basophils % (A) 0 %; Eosinophils # (A) 0.1 k/uL (0-0.7); Eosinophils % (A) 0 %; HCT 22.9 % (39.0-53.0); HGB 7.2 gm/dL (13.0-17.5); Hypochromasia Marked; Lymphocytes # (A) 0.3 k/uL (1.0-4.8); Lymphocytes % (A) 2 %; MCHC 31.6 g/dL (31.0-37.0); MCV 94.8 fL (80.0-100.0); Macrocytosis Slight; Mean Platelet Volume 8.3; Monocytes # (A) 0.7 k/uL (0-1.0); Monocytes % (A) 5 %; Neutrophils # (A) 11.6 k/uL (1.3-7.7); Neutrophils % (A) 90 %; Platelet Count 185 k/uL (150-450); RBC 2.41 m/uL (4.30-5.90); WBC 12.9 k/uL (3.8-10.6)
[2018-09-09] MEDS ORDERED: FUROSEMIDE 10 MG/ML 10 ML VIAL IV STA (08:19)
[2018-09-09] MEDS: AMIODARONE 200 MG TAB PO SCH ×2 (08:45→19:54)
[2018-09-09] MEDS: APIXABAN 2.5 MG TABLET PO SCH ×2 (08:45→19:54)
[2018-09-09] MEDS: GABAPENTIN 100 MG CAP PO SCH ×3 (08:45→19:54)
[2018-09-09] MEDS: METOPROLOL TARTRATE 25 MG TAB PO SCH ×3 (08:45→23:20)
[2018-09-09] MEDS: ASPIRIN 81 MG PO SCH (08:45)
[2018-09-09] MEDS: SODIUM CHLORIDE 0.9% 1,000 ML IV SCH (08:46)
--- NOTE | 2018-09-09 08:47 | XR ---
EXAMINATION TYPE: XR chest 1V portable DATE OF EXAM: 09/09/2018 COMPARISON: 09/08/2018 INDICATION: Short of breath TECHNIQUE: Single frontal view of the chest is obtained. FINDINGS: The heart size is normal. The pulmonary vasculature is dominant. Diffuse infiltrate is present bilaterally. This is slightly greater in the left lower lobe and increa sing from comparison. Increasing right basilar infiltrate is also present. IMPRESSION: 1. Worsening findings suggestive for pulmonary edema. Clinical correlation and follow-up is recommend ed.
--- NOTE | 2018-09-09 08:47 | PN ---
PROGRESS NOTE This gentleman came in with diastolic heart failure and anemia. He is doing better overall. He is still lethargic, but hemodynamically more stable. He is in atrial fib, the rate is moderate. Blood pressure is fair. Hemoglobin is around 7.2 to 7.5. I had reduced his Eliquis to 2.5 mg b.i.d. There is no evidence of any bleeding at this time. Stool for occult blood is still pending. His creatinine has come down to 1.38. Hemoglobin remains at 7.2. I am recommending that we resume amiodarone at 200 mg b.i.d. and metoprolol at 25 mg t.i.d. We will continue his other medications. I will also reduce his atorvastatin to 40 mg at bedtime from 80 mg. This gentleman has history of aortic valve replacement with a tissue valve, chronic persistent atrial fibrillation and bypass surgery with chronic anemia. Overall prognosis remains poor. Physical exam revealed a blood pressure of 128/70, pulse rate is about 105 irregular. JVD is 1 cm, no carotid bruit. S1, S2 with a short systolic murmur at the base is audible. Lungs reveal diminished air entry. Abdomen and lower extremity exam is unchanged. Plan is to decrease atorvastatin to 40 mg daily. Resume amiodarone at 200 mg b.i.d. and metoprolol at 25 mg t.i.d. We will continue Eliquis at a lower dose of 2.5 mg b.i.d. MMODL / IJN: [id number] /
--- NOTE | 2018-09-09 09:15 | P.PN ---
Subjective Progress Note Date: 09/09/18 Principal diagnosis: Acute hypoxemic respiratory failure secondary to congestive heart failure On 09/09/2018 patient seen in follow-up in intensive care unit. He is awake and alert on today's exam, he was maintained on BiPAP support overnight, with pressures of 12/5, and FiO2 of 50%, currently on the nasal cannula trial at 5 L/m. He does seem to be moderately dyspneic, and fatigued, will be placed back on BiPAP support if shows more signs of fatigue or decompensation. Denies any chest pain. Patient was on Lasix drip at 10 mg per hour, which was discontinued this morning. Produced 2783 mL of urine output in the last 24 hours, and he is in -1138 mL fluid balance over the last 24 hours. Still has lower extremity edema, which is improving, and the skin on lower extremities is starting to show some signs of wrinkling. Lung sounds are diminished, with bibasilar crackles. Today's chest x-ray has been reviewed with Dr. Denny, showing worsening findings digestive of pulmonary edema, bilateral pleural effusions. Today's labs have been reviewed, showing white blood cell count of 12.9, hemoglobin of 7.2, serum sodium was 134, potassium is 4.5, chloride was 102, CO2 is 20, BUN was 51, creatinine is 1.38, CK-MB was 2.6, and this morning his troponin is 0.773. He is on Eliquis for anticoagulation, metoprolol, and oral Cordarone atrial fibrillation, and the rate is ranging from 89-100 BPM. Objective - Vital Signs Vital signs: Vital Signs Temp 97.8 F 09/09/18 04:00 Pulse 100 09/09/18 07:09 Resp 24 09/09/18 06:00 BP 131/57 09/09/18 06:00 Pulse Ox 99 09/09/18 06:00 Intake & Output 09/08/18 09/09/18 09/09/18 18:59 06:59 18:59 Intake Total 930 715 Output Total 1453 1330 Balance -523 -615 Weight 110 kg Intake: IV 450 150 Sodium Chloride 0.9% 1, 450 150 000 ml @ 50 mls/hr IV . Q20H [facility] Rx#:[id number] Intake, IV Titration 100 Amount Furosemide 100 mg In 100 Sodium Chloride 0.9% 90 ml @ 10 MG/HR 10 mls/hr IV .Q10H [facility] Rx#: [id number] Oral 480 465 Output: Urine 1453 1330 Other: Voiding Method Indwelling Catheter Indwelling Catheter - Exam GENERAL EXAM: Alert, pleasant, 68-year-old white male, appears mildly dyspneic, and fatigued, currently on BiPAP support, and on 5 L per nasal cannula HEAD: Normocephalic/atraumatic. EYES: Normal reaction of pupils, equal size. Conjunctiva pink, sclera white. NOSE: Clear with pink turbinates. THROAT: No erythema or exudates. NECK: No masses, no JVD, no thyroid enlargement, no adenopathy. CHEST: No chest wall deformity. Symmetrical expansion. LUNGS: Equal air entry with diminished breath sounds and bibasilar crackles CVS: Regular rate and rhythm, normal S1 and S2, no gallops, no murmurs, no rubs ABDOMEN: Soft, nontender. No hepatosplenomegaly, normal bowel sounds, no guarding or rigidity. EXTREMITIES: No clubbing, 1+ pitting edema, no cyanosis, 2+ pulses and upper and lower extremities. MUSCULOSKELETAL: Muscle strength and tone normal. SPINE: No scoliosis or deformity SKIN: No rashes CENTRAL NERVOUS SYSTEM: Alert and oriented -3. No focal deficits, tone is normal in all 4 extremities. PSYCHIATRIC: Alert and oriented -3. Appropriate affect. Intact judgment and insight. - Labs CBC & Chem 7: 09/09/18 05:13 09/09/18 05:13 Labs: Abnormal Lab Results - Last 24 Hours (Table) 09/09/18 09/09/18 Range/Units 05:13 05:13 WBC 12.9 H (3.8-10.6) k/uL RBC 2.41 L (4.30-5.90) m/uL Hgb 7.2 L (13.0-17.5) gm/dL Hct 22.9 L (39.0-53.0) % RDW 18.0 H (11.5-15.5) % Neutrophils # 11.6 H (1.3-7.7) k/uL Lymphocytes # 0.3 L (1.0-4.8) k/uL Sodium 134 L (137-145) mmol/L Carbon Dioxide 20 L (22-30) mmol/L BUN 51 H (9-20) mg/dL Creatinine 1.38 H (0.66-1.25) mg/dL Glucose 160 H (74-99) mg/dL Microbiology - Last 24 Hours (Table) 09/07/18 18:28 Urine Culture - Final Urine,Catheterized Assessment and Plan Plan: Assessment: #1. Acute hypoxic respiratory failure secondary to congestive heart failure with mildly reduced ejection fraction previously documented EF between 50-55%, improved with BiPAP and diuretic therapy #2. Acute kidney injury #3. History of of chronic atrial fibrillation, on Eliquis #4. Possible chronic obstructive pulmonary disease from previous tobacco use #5. Moderate pulmonary hypertension, with right-sided pressures of 46 mmHg #6. Elevated troponins, could be related to hypoxemia, rule out non-ST elevated SC #7. History of aortic valve replacement with a bioprosthetic tissue valve #8. Coronary artery disease status post coronary artery bypass grafting #9. Chronic anemia #10. Hypertension #11. Hyperlipidemia #12. History of myocardial infarction #13. Degenerative joint disease #14. Peripheral vascular disease Plan: We'll continue IV diuretics, 40 mg twice daily, will give a 60 mg dose this morning. Patient is currently on a nasal cannula trial, but looks mildly d yspneic and fatigued, we'll place back on BiPAP support. Remains in A. fib, with a controlled rate, cardiology is following, patient denies chest pain. Today's chest x-ray was reviewed with Dr. Denny, and showing changes of pulmonary edema, bilateral pleural effusions. Hemodynamically patient is stable, will continue current therapies. GI and DVT prophylaxis, monitor urine output, electrolytes, will remain the intensive care unit, I performed a history & physical examination of the patient and discussed their management with my nurse practitioner, Gina Field. I reviewed the nurse pra ctitioner's note and agree with the documented findings and plan of care. Lung sounds are positive for diminished breath sounds. The findings and the impression was discussed with the patient. I attest to the documentation by the nurse practitioner. Time with Patient: Less than 30
--- NOTE | 2018-09-09 09:40 | P.NPCON ---
History of Present Illness - Reason for Consult acute renal failure - History of Present Illness Reason for consultation: Acute kidney injury History of present illness: Patient is a 68-year-old male seen in renal consultation for acute kidney injury. His baseline creatinine is 1 and peaked at 1.49 this admission. Patient presented to the hospital with generalized weakness. He was noted to be in diastolic congestive heart failure and is being diuresis. He was on Lasix drip yesterday and is now on 40 mg twice daily. He is nonoliguric. He is awake and alert. Does admit to dyspnea but improved since admission. Denies vomiting or diarrhea. Oral intake is fair. Hemoglobin was 6.8 on admission and is 7.2 today. Denies melena or hematochezia. No active bleeding. No chest pain. Urinalysis is benign. He is afebrile. Hemodynamically stable. He denies regular use of NSAIDs. Denies history of diabetes. Vital signs are stable. General: The patient appeared well nourished and normally developed. HEENT: Head exam is unremarkable. Neck is without jugular venous distension. LUNGS: Breath sounds decreased. HEART: Rate and Rhythm are regular. First and second heart sounds normal. No mur murs, rubs or gallops. ABDOMEN: Abdominal exam reveals normal bowel sounds. Non-tender and non-dist ended. EXTREMITITES: 1+ edema. Past Medical History Past Medical History: Atrial Fibrillation, Coronary Artery Disease (CAD), Cancer, COPD, GI Bleed, Hyperlipidemia, Hypertension, Liver Disease, Myocardial Infarction (AR), Osteoarthritis (OA), Vascular Disorder Additional Past Medical History / Comment(s): PVD, BACK PAIN, SWELLING IN ANKLES AND FEET, hx SKIN CANCER,NEUROPATHY,ALCOHOL INDUCED MYOPATHY, BARETTS ESOPHAGUS, COLONIC DIVERTICULOSIS Last Myocardial Infarction Date:: 01-20-13 History of Any Multi-Drug Resistant Organisms: None Reported Past Surgical History: Heart Catheterization, Heart Catheterization With Stent Additional Past Surgical History / Comment(s): aortic valve replacement 2012, aortogram, pt states 2 failed stent replacement-1 to each leg, PAIN CLINIC PROCEDURES, ABDOMINAL AORTOGRAM, Stent in right leg Past Anesthesia/Blood Transfusion Reactions: No Reported Reaction Date of Last Stent Placement:: 05/30/15 Smoking Status: Former smoker - Past Family History Mother Family Medical History: Deep Vein Thrombosis (DVT) Medications and Allergies Home Medications Medication Instructions Recorded Confirmed Type Atorvastatin [Lipitor] 80 mg PO HS@209910/06/14 09/07/18 History Metoprolol Tartrate [Lopressor] 25 mg PO BID@0900,209910/06/14 09/07/18 History Haworth-3 Fatty Acids/Fish Oil [Fish 1 cap PO DAILY@0900 10/06/14 09/07/18 History Oil 1,000 mg Softgel] Nitroglycerin Sl Tabs [Nitrostat] 0.4 mg SUBLINGUAL Q5M PRN #25 tab 05/14/15 09/07/18 Rx Amiodarone HCl [Pacerone] 200 mg PO DAILY@89906/27/16 09/07/18 History Apixaban [Eliquis] 5 mg PO BID@0900,209909/24/17 09/07/18 History Ranitidine HCl [Zantac] 150 mg PO BID@0900,209905/30/18 09/07/18 History Vitamin B Complex 1 cap PO DAILY@89906/07/18 09/07/18 History HYDROcodone/APAP 5-325MG [[place] 1 tab PO Q8H PRN 08/16/18 09/07/18 History 5-325] Isosorbide Mononitrate ER [Imdur] 15 mg PO DAILY@89908/16/18 09/07/18 History Spironolactone 50 mg PO DAILY@0908/16/18 09/07/18 History Furosemide [Lasix] 40 mg PO DAILY@89909/07/18 09/07/18 History Gabapentin [Neurontin] 100 mg PO TID@0900,1300,209909/07/18 09/07/18 History Lactose-Reduced Food [Ensure Plus] 120 ml PO TID@1000,1400,199909/07/18 09/07/18 History Losartan [Cozaar] 12.5 mg PO HS@209909/07/18 09/07/18 History Potassium Chloride ER [K-Dur 20] 20 meq PO DAILY@89909/07/18 09/07/18 History Allergies Allergy/AdvReac Type Severity Reaction Status Date / Time No Known Allergies Allergy Verified 09/07/18 17:31 Physical Exam Vitals: Vital Signs Temp Pulse Resp BP Pulse Ox 09/09/18 09:00 92 26 H 103/71 92 L 09/09/18 08:00 101 H 25 H 117/51 89 L 09/09/18 07:09 100 09/09/18 07:00 98.7 F 90 22 111/44 98 09/09/18 06:50 94 09/09/18 06:00 89 24 131/57 99 09/09/18 05:00 108 H 30 H 121/53 95 09/09/18 04:30 80 09/09/18 04:15 80 09/09/18 04:00 97.8 F 102 H 24 111/52 97 09/09/18 03:00 91 18 111/43 95 09/09/18 02:00 86 21 103/48 92 L 09/09/18 01:00 93 25 H 103/41 93 L 09/09/18 00:00 98.7 F 84 19 103/44 92 L 09/08/18 23:00 89 26 H 107/43 94 L 09/08/18 22:00 96 23 108/49 94 L 09/08/18 21:00 94 18 117/42 96 09/08/18 20:10 76 09/08/18 20:00 97.9 F 81 22 111/41 96 09/08/18 19:00 79 21 113/47 96 09/08/18 18:00 83 23 104/39 95 09/08/18 17:00 80 24 109/49 96 09/08/18 16:00 97.7 F 72 15 102/46 96 09/08/18 14:00 85 20 116/67 95 09/08/18 13:26 76 09/08/18 13:16 77 09/08/18 13:00 74 23 105/38 97 09/08/18 12:00 98.6 F 79 20 109/43 95 09/08/18 11:00 79 13 94/66 96 09/08/18 10:00 80 22 118/44 95 Intake and Output 09/08/18 09/09/18 09/09/18 22:59 06:59 14:59 Intake Total 1085 360 135 Output Total 630 1005 255 Balance 455 645 120 Intake: IV 360 40 5 Sodium Chloride 0.9% 1, 360 40 5 000 ml @ 50 mls/hr IV . Q20H [facility] Rx#:[id number] Intake, IV Titration 20 80 10 Amount Furosemide 100 mg In 20 80 10 Sodium Chloride 0.9% 90 ml @ 10 MG/HR 10 mls/hr IV .Q10H [facility] Rx#: [id number] Oral 705 240 120 Output: Urine 630 1005 255 Other: Voiding Method Indwelling Catheter Indwelling Catheter Indwelling Catheter Weight 110 kg Results - Lab Results Most recent lab results Calcium 8.6 mg/dL (8.4-10.2) 09/09/18 05:13 Phosphorus 4.1 mg/dL (2.5-4.5) 09/07/18 16:18 Magnesium 2.0 mg/dL (1.6-2.3) 09/07/18 16:18 09/09/18 05:13 09/09/18 05:13 Assessment and Plan Plan: Assessment: 1. Acute kidney injury mostly prerenal secondary to cardiorenal syndrome. Baseline creatinine near 1. Creatinine peaked at 1.49 this admission and is 1.38 today. Urinalysis is benign. 2. Dyspnea secondary to volume overload. 3. Diastolic CHF. 4. Anemia. No active bleeding noted. Rule out iron deficiency. 5. Metabolic acidosis secondary to acute kidney injury. 6. Mild hyponatremia. Patient is hypervolemic. Plan: Maintain Lasix 40 mg IV twice daily. Continue to monitor renal function and urine output. Encouraged oral intake. Check iron studies. Thank you for the consultation. I will continue to follow patient with you during his hospital stay.
--- NOTE | 2018-09-09 13:28 | CDI ---
Documentation Clarification Form Date: 09/08/2018 1:04:21 PM From: Yuliet Schaffer RN, CCDS Admit Date: 09/07/2018 7:10:00 PM Patient Name: Catracho Brady Visit Number: [id number] ATTENTION: The Clinical Documentation Specialists (CDI) and [facility] Coding Staff appreciate your assistance in clarifying documentation. Please respond to the clarification below the line at the bottom and electronically sign. The CDI & [facility] Coding staff will review the response and follow-up if needed. Please note: Queries are made part of the Legal Health Record. If you have any questions, please contact the author of this message via ITS. Dr. Jin Guadarrama diagnosis of anemia lacks specificity to accurately reflect your patients severity of condition and clarification is needed. History/Risk Factors: chronic anemia, failure to thrive, high output heart failure, NSTEMI, CABG, Paroxsysmal a-fib, adult failure to thrive Clinical indicators: Hemoglobin: 6.8/7.7/7.2 Hematocrit: 21.4/24.7/22.7/22.9 Progress Notes: "chronic anemia" being documented by all consultants. Treatment: 1 L IVF Bolus monitoring labs m daily In order to capture the severity of condition, please clarify the type of anemia and etiology if known: Acute blood loss anemia Acute on chronic blood loss anemia Chronic blood loss anemia Iron deficiency anemia Anemia due to malignancy Nutritional anemia Anemia of chronic kidney disease Unable to determine Other, please specify (Last Revision: December 2016) unable to determine MTDD
[2018-09-09 17:32] LABS: Iron Saturation 9.81 (15.00-50.00)
[2018-09-09] MEDS: FUROSEMIDE 10 MG/ML 4 ML VIAL IV SCH (19:53)
[2018-09-09] MEDS: ATORVASTATIN 40 MG TAB PO SCH (19:54)
--- NOTE | 2018-09-09 19:55 | P.PN ---
Progress Note - Text Progress Note Date: 09/09/18 Chief Complaint: tired History of presenting complaint: This is a 68-year-old patient who follows with Dr. Chávez, was at [facility]. he was discharged on August 28. Patient was admitted last time with CHF exacerbation and also had the GI bleed. Patient was followed conservatively for the same. Eliquis had been held. And then reintroduced. Chronic stable medical conditions include hypertensive heart disease, bicuspid aortic valve, peripheral artery disease with stent, or severe arthritis, coronary artery disease, hyperlipidemia, Zhu's esophagus, chronic colonic diverticulosis, paroxysmal atrial fibrillation for which patient been on Eliquis,. Patient's history is primary given by the daughter the bedside. At the skilled nursing daughter states patient has not been doing too well. Easily gets short of breath. Has not really involved in therapy. Not much of an appetite. We will drink some ensure etc. Lethargic at times. Confused at times. Other times more awake. Patient yesterday was found to be short of breath. Was hypoxic. He required BiPAP. Became more confused. Patient was moved to the ICU. Required BiPAP and Lasix. Patient not been reported of any GI bleed. Hemoglobin was down to 6.8. Repeat hemoglobin was above 7. Today-remains in the ICU. The more awake. Daughter the bedside. Was hypoxic earlier but required BiPAP and then seemed to probable mucous plug. Has been on 4 L of oxygen. Telemetry shows sinus rhythm. Heart rate was in up 100s. Lopressor and amiodarone was added by cardiology earlier. Not keen on eating Review of systems: Was done for constitutional, cardiovascular, GI, pulmonary. relevant finding as above Current medications are reviewed that included: DuoNeb, Eliquis, Cordarone, IV Lasix 40 mg every 12, Lopressor 25 mg 3 times a day Physical examination: VITAL SIGNS: 9 8.4, 74, 30, 103/47, 98% on 4 L oxygen GENERAL: Propped up in bed, more awake, EYES: Pupils equal. Conjunctiva normal. HEENT: External appearance of nose and ears normal, dried blood in the posterior pharynx.. NECK: JVD not raised; masses not palpable. HEART: First and second heart sounds are normal; some edema. LUNGS: Respiratory rate increased, decreased breaths on some crackles. ABDOMEN: Soft, nontender, liver spleen not palpable, no masses palpable. LYMPHATICS: No lymph nodes palpable in the axilla and neck. PSYCH: Tired but more awake today. I'll see better. NEUROLOGICAL: Cranial nerves grossly intact; no facial asymmetry, power and sensation grossly intact. Investigations, reviewed in the clinical context White count 12.9, hemoglobin 7.2, potassium 4.5, BUN 51, creatinine 1.38 Assessment: -Acute on chronic congestive heart failure from severe diastolic dysfunction EF 50-55% -Hypertensive heart disease Essential hypertension Bicuspid aortic valve is peripheral artery disease with a prior stent next primary osteoarthritis and coronary artery disease and hyperlipidemia next Zhu's esophagus with history of alcoholism Chronic colonic diverticulosis and obesity BMI 34 Paroxysmal atrial fibrillation for which patient chronically on Eliquis -Acute metabolic encephalopathy, multifactorial, with some improvement -Acute medical debility multifactorial Plan: Overall looks a bit better today. Told the nurse to do oral care in reference. Including mouthwash and gargle. Told patient not to use his dentures for a short time it seems causing dry mouth with some bleeding. Other medications to continue. PTOT to been wall. Patient remains in the ICU. Hopefully can be moved out tomorrow.. Follow electrolytes closely
[2018-09-09] MEDS: HYDROcodone/APAP 5-325MG 1 EACH TAB PO PRN (23:20)
[2018-09-10 05:39] LABS: Calcium 8.7 mg/dL (8.4-10.2); Potassium 4.9 mmol/L (3.5-5.1)
[2018-09-10 05:40] LABS: Anisocytosis Slight; HCT 20.4 % (39.0-53.0); Hypochromasia Slight; MCH 29.8 pg (25.0-35.0); MCHC 32.6 g/dL (31.0-37.0); MCV 91.5 fL (80.0-100.0); Mean Platelet Volume 8.4; Platelet Count 211 k/uL (150-450); RBC 2.23 m/uL (4.30-5.90); RDW 18.6 % (11.5-15.5); WBC 13.7 k/uL (3.8-10.6)
[2018-09-10 05:51] LABS: HGB 6.6 gm/dL (13.0-17.5)
[2018-09-10] MEDS: APIXABAN 2.5 MG TABLET PO SCH (08:07)
[2018-09-10] MEDS: AMIODARONE 200 MG TAB PO SCH ×2 (08:19→20:19)
[2018-09-10] MEDS: ASPIRIN 81 MG PO SCH (08:19)
[2018-09-10] MEDS: GABAPENTIN 100 MG CAP PO SCH ×3 (08:19→20:19)
--- NOTE | 2018-09-10 08:22 | XR ---
EXAMINATION TYPE: XR chest 1V DATE OF EXAM: 09/10/2018 COMPARISON: 09/09/2018 HISTORY: 68-year-old male with CHF TECHNIQUE: Single frontal view of the chest is obtained. FINDINGS: Median sternotomy wires and post-CABG clips in the mediastinum. Heart borderline enlarged. Hyperinfla tion with diffuse interstitial and vascular densities along with small left greater than right pleura l effusions with bibasilar densities. IMPRESSION: 1. Continued CHF with interstitial pulmonary edema and more confluent edema at the lung bases. 2. Continued small left greater than right pleural effusions. 3. Background of COPD.
[2018-09-10] MEDS: IPRATROPIUM-ALBUTEROL 3 ML NEB INHALATION SCH ×3 (08:28→19:17)
[2018-09-10] MEDS: FUROSEMIDE 10 MG/ML 4 ML VIAL IV SCH (09:19)
--- NOTE | 2018-09-10 09:32 | PN ---
PROGRESS NOTE Mr. Brady remains in sinus rhythm intermittently goes in and out of atrial fibrillation. His hemoglobin is less than 7. He was placed on BiPAP, developed a lot of anxiety and stopped. Given his low hemoglobin, even though he has atrial fibrillation, previous aortic valve replacement and bypass surgery, I am recommending we hold Eliquis for the time being. He is going in and out of atrial fibrillation, this morning he is in sinus rhythm. Blood pressure is acceptable. Urine output is fair. S1, S2 heard normally, short systolic murmur at the base is audible. Lungs reveal diminished air entry. Abdomen and lower extremity exam is unchanged. Prognosis remains guarded. He has anemia and diastolic heart failure with previous bypass surgery and aortic valve replacement with a tissue valve. Given his low hemoglobin, I will hold Eliquis and patient understands the risks for embolic stroke. MMODL / IJN: [id number] /
--- NOTE | 2018-09-10 09:47 | P.PN ---
Subjective Patient is seen in follow-up for acute kidney injury. His baseline creatinine is 1 and is up to 1.57 today. Hemoglobin is down to 6.6. Patient is more dyspneic today and is currently on BiPAP. He is maintained on Lasix 40 mg IV twice daily. Urine output is down to 10-20 mL an hour. Oral intake is fair. Vital signs are stable. General: The patient appeared well nourished and normally developed. HEENT: Head exam is unremarkable. Neck is without jugular venous distension. LUNGS: Breath sounds decreased. HEART: Rate and Rhythm are regular. First and second heart sounds normal. No murmurs, rubs or gallops. ABDOMEN: Abdominal exam reveals normal bowel sounds. Non-tender and non- distended. EXTREMITITES: 1+ edema. Objective - Vital Signs Vital signs: Vital Signs Temp 98.1 F 09/10/18 08:00 Pulse 82 09/10/18 09:00 Resp 23 09/10/18 09:00 BP 98/50 09/10/18 09:00 Pulse Ox 97 09/10/18 09:00 Intake & Output 09/09/18 09/10/18 09/10/18 18:59 06:59 18:59 Intake Total 355 0 120 Output Total 815 680 53 Balance -460 -680 67 Weight 110.5 kg Intake: IV 5 0 Sodium Chloride 0.9% 1, 5 0 000 ml @ 50 mls/hr IV . Q20H [facility] Rx#:[id number] Intake, IV Titration 10 0 Amount Furosemide 100 mg In 10 0 Sodium Chloride 0.9% 90 ml @ 10 MG/HR 10 mls/hr IV .Q10H [facility] Rx#: [id number] Oral 340 0 120 Output: Urine 815 680 53 Other: Voiding Method Indwelling Catheter Indwelling Catheter - Labs CBC & Chem 7: 09/10/18 04:27 09/10/18 04:27 Labs: Abnormal Lab Results - Last 24 Hours (Table) 09/09/18 09/10/18 09/10/18 Range/Units 05:13 04:27 04:27 WBC 13.7 H (3.8-10.6) k/uL RBC 2.23 L (4.30-5.90) m/uL Hgb 6.6 L* (13.0-17.5) gm/dL Hct 20.4 L (39.0-53.0) % RDW 18.6 H (11.5-15.5) % Sodium 133 L (137-145) mmol/L BUN 61 H (9-20) mg/dL Creatinine 1.57 H (0.66-1.25) mg/dL Glucose 107 H (74-99) mg/dL Iron 26 L (65-175) ug/dL Iron Saturation 9.81 L (15.00-50.00) Assessment and Plan Plan: Assessment: 1. Acute kidney injury mostly prerenal secondary to cardiorenal syndrome. Baseline creatinine near 1. 1.57 today. Urinalysis is benign. 2. Dyspnea secondary to volume overload. 3. Diastolic CHF. 4. Anemia. No active bleeding noted. Hgb 6.6 today. Iron deficiency noted. GI consulted. 5. Metabolic acidosis secondary to acute kidney injury. Better. 6. Mild hyponatremia. Patient is hypervolemic. Plan: Start lasix drip at 10 cc/hr. IV iron x 3 doses. First dose today. Continue to monitor renal function and urine output. Encouraged oral intake. Consider 1 unit pRBC transfusion.
[2018-09-10] MEDS: FUROSEMIDE 100 MG in SODIUM CHLORIDE 0.9% 90 ML IV SCH ×2 (09:55→20:20)
--- NOTE | 2018-09-10 09:56 | P.PN ---
Subjective Progress Note Date: 09/10/18 Principal diagnosis: Acute hypoxemic respiratory failure secondary to congestive heart failure On 09/09/2018 patient seen in follow-up in intensive care unit. He is awake and alert on today's exam, he was maintained on BiPAP support overnight, with pressures of 12/5, and FiO2 of 50%, currently on the nasal cannula trial at 5 L/m. He does seem to be moderately dyspneic, and fatigued, will be placed back on BiPAP support if shows more signs of fatigue or decompensation. Denies any chest pain. Patient was on Lasix drip at 10 mg per hour, which was discontinued this morning. Produced 2783 mL of urine output in the last 24 hours, and he is in -1138 mL fluid balance over the last 24 hours. Still has lower extremity edema, which is improving, and the skin on lower extremities is starting to show some signs of wrinkling. Lung sounds are diminished, with bibasilar crackles. Today's chest x-ray has been reviewed with Dr. Denny, showing worsening findings digestive of pulmonary edema, bilateral pleural effusions. Today's labs have been reviewed, showing white blood cell count of 12.9, hemoglobin of 7.2, serum sodium was 134, potassium is 4.5, chloride was 102, CO2 is 20, BUN was 51, creatinine is 1.38, CK-MB was 2.6, and this morning his troponin is 0.773. He is on Eliquis for anticoagulation, metoprolol, and oral Cordarone atrial fibrillation, and the rate is ranging from 89-100 BPM. On 09/10/2018 patient seen in follow-up in the intensive care unit. Patient is awake and alert, he is on BiPAP support pressures 12/5, and FiO2 of 35%. Appears fatigued, and dyspneic. Today's chest x-ray has been reviewed with Dr. Denny, still showing interstitial edema, more confluent edema at the lung bases, and left greater than right pleural effusions. It have low-grade fevers last night, with a T-max of 100.6F. Today's labs have been reviewed, showing white blood cell count of 13.7, hemoglobin of 6.6, serum sodium is 133, potassium is 4.9, chloride was 98, CO2 was 22, BUN was 61 and creatinine is 1.57. Patient is currently on IV Lasix at 40 mg every 12 hours, and his urine output has been quite low, ranging from 15-33 mL per hours. Lung sounds are diminished, with bibasilar crackles. Patient is a full code, will continue with current therapies, nephrology is on, today's labs show slight increase in renal profile, however in view of poor diuresis IV Lasix has been changed to Lasix drip at 10 mg per hour. Objective - Vital Signs Vital signs: Vital Signs Temp 98.1 F 09/10/18 08:00 Pulse 82 09/10/18 09:00 Resp 23 09/10/18 09:00 BP 98/50 09/10/18 09:00 Pulse Ox 97 09/10/18 09:00 Intake & Output 09/09/18 09/10/18 09/10/18 18:59 06:59 18:59 Intake Total 355 0 120 Output Total 815 680 53 Balance -460 -680 67 Weight 110.5 kg Intake: IV 5 0 Sodium Chloride 0.9% 1, 5 0 000 ml @ 50 mls/hr IV . Q20H [facility] Rx#:[id number] Intake, IV Titration 10 0 Amount Furosemide 100 mg In 10 0 Sodium Chloride 0.9% 90 ml @ 10 MG/HR 10 mls/hr IV .Q10H [facility] Rx#: [id number] Oral 340 0 120 Output: Urine 815 680 53 Other: Voiding Method Indwelling Catheter Indwelling Catheter - Exam GENERAL EXAM: Alert, pleasant, 68-year-old white male, appears mildly dyspneic, and fatigued, currently on BiPAP support. HEAD: Normocephalic/atraumatic. EYES: Normal reaction of pupils, equal size. Conjunctiva pink, sclera white. NOSE: Clear with pink turbinates. THROAT: No erythema or exudates. NECK: No masses, no JVD, no thyroid enlargement, no adenopathy. CHEST: No chest wall deformity. Symmetrical expansion. LUNGS: Equal air entry with diminished breath sounds and bibasilar crackles CVS: Regular rate and rhythm, normal S1 and S2, no gallops, no murmurs, no rubs ABDOMEN: Soft, nontender. No hepatosplenomegaly, normal bowel sounds, no guarding or rigidity. EXTREMITIES: No clubbing, 1+ pitting edema, no cyanosis, 2+ pulses and upper and lower extremities. MUSCULOSKELETAL: Muscle strength and tone normal. SPINE: No scoliosis or deformity SKIN: No rashes CENTRAL NERVOUS SYSTEM: Alert and oriented -3. No focal deficits, tone is normal in all 4 extremities. PSYCHIATRIC: Alert and oriented -3. Appropriate affect. Intact judgment and insight. - Labs CBC & Chem 7: 09/10/18 04:27 09/10/18 04:27 Labs: Abnormal Lab Results - Last 24 Hours (Table) 09/09/18 09/10/18 09/10/18 Range/Units 05:13 04:27 04:27 WBC 13.7 H (3.8-10.6) k/uL RBC 2.23 L (4.30-5.90) m/uL Hgb 6.6 L* (13.0-17.5) gm/dL Hct 20.4 L (39.0-53.0) % RDW 18.6 H (11.5-15.5) % Sodium 133 L (137-145) mmol/L BUN 61 H (9-20) mg/dL Creatinine 1.57 H (0.66-1.25) mg/dL Glucose 107 H (74-99) mg/dL Iron 26 L (65-175) ug/dL Iron Saturation 9.81 L (15.00-50.00) Assessment and Plan Plan: Assessment: #1. Acute hypoxic respiratory failure secondary to congestive heart failure with mildly reduced ejection fraction previously documented EF between 50-55%, remains on BiPAP support #2. Acute kidney injury #3. History of of chronic atrial fibrillation, on Eliquis #4. Possible chronic obstructive pulmonary disease from previous tobacco use #5. Moderate pulmonary hypertension, with right-sided pressures of 46 mmHg #6. Elevated troponins, could be related to hypoxemia, rule out non-ST elevated CT #7. History of aortic valve replacement with a bioprosthetic tissue valve #8. Coronary artery disease status post coronary artery bypass grafting #9. Chronic anemia #10. Hypertension #11. Hyperlipidemia #12. History of myocardial infarction #13. Degenerative joint disease #14. Peripheral vascular disease Plan: We'll continue with BiPAP support, we will increase the pressure to 16/8, and FiO2 of 35%, today's chest x-ray has been reviewed, still swimming changes of interstitial edema, and left greater than right pleural effusions, poor diuresis, patient has been switched to IV Lasix drip. And increase in renal function on today's labs, nephrology is following, continue with nebulized bronchodilators, patient is receiving ferritin transfusion for anemia. Prognosis is guarded, patient is a full code, we'll closely monitor her response to treatment, may need intubation and placement on mechanical ventilator if does not improve. I performed a history & physical examination of the patient and discussed their management with my nurse practitioner, Gina Field. I reviewed the nurse practitioner's note and agree with the documented findings and plan of care. Lung sounds are positive for diminished breath sounds. The findings and the impression was discussed with the patient. I attest to the documentation by the nurse practitioner. Time with Patient: Less than 30
[2018-09-10] MEDS: METOPROLOL TARTRATE 25 MG TAB PO SCH ×3 (10:17→21:31)
[2018-09-10 10:28] VITALS: BMI 34.9
[2018-09-10] MEDS: SODIUM FERRIC GLUCONAT-SUCROSE 125 MG in SODIUM CHLORIDE 0.9% 100 ML IVPB SCH (10:34)
--- NOTE | 2018-09-10 13:24 | P.CONS ---
History of Present Illness - Reason for Consult Consult date: 09/10/18 Anemia and GI bleed Requesting physician: Jin Partida - Chief Complaint Shortness of breath - History of Present Illness 5-year-old male admitted with CHF exacerbation. Past medical history of EtOH abuse, CHF, GI bleed/small bowel bleed, Zhu's esophagus, colonic div erticulosis, paroxysmal atrial fibrillation, hypertension, valvular heart disease, CAD CABG aVR bioprosthetic with PCI stent. Consult requested for anemia possible GI evaluation. Patient was seen in the GI service a few weeks ago in regards to acute GI bleed drop in hemoglobin. Hemoglobin 8.9 decreased to 7.9. At that time patient was receiving Eliquis. Anticoagulation was placed on hold hemoglobin stabilize rectal bleeding subsided patient was treated conservatively. EGD/colonoscopy 04/2017 evaluation of symptomatic anemia w/ melena showed gastritis, short segment of Zhu's, no varices, and moderate sigmoid diverticulosis. Polypectomy x 6 biopsies TA and Barretts negative for dysplasia. Follow up small bowel capsule endoscopy identified active bleeding angiectasias in the proximal small bowel. Enteroscopy reached to the targeted areas without evidence of active bleeding. Admission hemoglobin 6.8 increased to 7.7 presently 6.6. Receiving 1 unit of blood. This reports no obvious bleeding such as hematemesis hematochezia melena. Troponin 0.7. Iron 26. Iron Saturation 9.8%. Into 27. BUN 61. Creatinine 1.7. Patient is alert on BiPAP. He appears fatigued difficulty breathing. Review of Systems Constitutional: Denies fever, chills, sweats, weight gain, or loss. HEENT: Negative for migraines, blurred vision or loss, earaches, drainage, tinnitus, oral mucosal lesions, dysphagia, or odynophagia. Cardiac: Negative for chest pain, arrhythmias, or palpitation. Respiratory: Shortness of breath denies of breath, hemoptysis, cough, or sputum production. Gastrointestinal: See HPI for pertinent findings. Genitourinary: Negative for hematuria, urgency, frequency, polyuria, dysuria, or penile discharge. Musculoskeletal: Negative for muscle aches, swelling, arthritis, and arthralgias. Neurologic: Negative for stroke or TIA. Endocrine: Negative for thyroid problems. Skin: Negative for rash or itching. Psychiatric: Negative history for depression and anxiety Past Medical History Past Medical History: Atrial Fibrillation, Coronary Artery Disease (CAD), Cancer, COPD, GI Bleed, Hyperlipidemia, Hypertension, Liver Disease, Myocardial Infarction (NV), Osteoarthritis (OA), Vascular Disorder Additional Past Medical History / Comment(s): PVD, BACK PAIN, SWELLING IN ANKLES AND FEET, hx SKIN CANCER,NEUROPATHY,ALCOHOL INDUCED MYOPATHY, BARETTS ESOPHAGUS, COLONIC DIVERTICULOSIS Last Myocardial Infarction Date:: 01-20-13 History of Any Multi-Drug Resistant Organisms: None Reported Past Surgical History: Heart Catheterization, Heart Catheterization With Stent Additional Past Surgical History / Comment(s): aortic valve replacement 2012, aortogram, pt states 2 failed stent replacement-1 to each leg, PAIN CLINIC PROCEDURES, ABDOMINAL AORTOGRAM, Stent in right leg Past Anesthesia/Blood Transfusion Reactions: No Reported Reaction Date of Last Stent Placement:: 05/30/15 Smoking Status: Former smoker - Past Family History Mother Family Medical History: Deep Vein Thrombosis (DVT) Medications and Allergies Home Medications Medication Instructions Recorded Confirmed Type Atorvastatin [Lipitor] 80 mg PO HS@209910/06/14 09/07/18 History Metoprolol Tartrate [Lopressor] 25 mg PO BID@09,209910/06/14 09/07/18 History [place]-3 Fatty Acids/Fish Oil [Fish 1 cap PO DAILY@89910/06/14 09/07/18 History Oil 1,000 mg Softgel] Nitroglycerin Sl Tabs [Nitrostat] 0.4 mg SUBLINGUAL Q5M PRN #25 tab 05/14/15 09/07/18 Rx Amiodarone HCl [Pacerone] 200 mg PO DAILY@0900 06/27/16 09/07/18 History Apixaban [Eliquis] 5 mg PO BID@0900,209909/24/17 09/07/18 History Ranitidine HCl [Zantac] 150 mg PO BID@0900,209905/30/18 09/07/18 History Vitamin B Complex 1 cap PO DAILY@89906/07/18 09/07/18 History HYDROcodone/APAP 5-325MG [[place] 1 tab PO Q8H PRN 08/16/18 09/07/18 History 5-325] Isosorbide Mononitrate ER [Imdur] 15 mg PO DAILY@0900 08/16/18 09/07/18 History Spironolactone 50 mg PO DAILY@0900 08/16/18 09/07/18 History Furosemide [Lasix] 40 mg PO DAILY@89909/07/18 09/07/18 History Gabapentin [Neurontin] 100 mg PO TID@0900,1300,209909/07/18 09/07/18 History Lactose-Reduced Food [Ensure Plus] 120 ml PO TID@1000,1400,199909/07/18 9 History Losartan [Cozaar] 12.5 mg PO HS@209909/07/18 09/07/18 History Potassium Chloride ER [K-Dur 20] 20 meq PO DAILY@89909/07/18 09/07/18 History Allergies Allergy/AdvReac Type Severity Reaction Status Date / Time No Known Allergies Allergy Verified 09/07/18 17:31 Physical Exam Vitals: Vital Signs Temp Pulse Resp BP Pulse Ox 09/10/18 13:00 75 25 H 91/42 95 09/10/18 12:53 98.2 F 76 23 111/42 95 09/10/18 12:30 78 16 100/51 96 09/10/18 12:23 98.1 F 78 23 100/51 96 09/10/18 12:13 99.5 F 78 20 104/49 09/10/18 12:04 78 09/10/18 12:00 98.2 F 78 17 96/65 98 09/10/18 11:59 79 09/10/18 11:30 80 14 98/38 93 L 09/10/18 11:00 79 18 98/38 93 L 09/10/18 10:30 80 11 L 86/47 93 L 09/10/18 10:00 79 14 82/61 96 09/10/18 09:30 81 26 H 95 09/10/18 09:00 82 23 98/50 97 09/10/18 08:37 80 09/10/18 08:30 82 24 92/48 97 09/10/18 08:00 98.1 F 81 17 92/46 91 L 09/10/18 07:00 77 20 97/40 91 L 09/10/18 06:00 71 20 93/41 93 L 09/10/18 05:00 72 19 104/46 94 L 09/10/18 04:00 97.9 F 72 19 98/48 92 L 09/10/18 03:00 70 17 96/49 85 L 09/10/18 02:00 71 24 93/41 94 L 09/10/18 01:00 70 16 102/57 90 L 09/10/18 00:22 78 28 H 102/57 96 09/10/18 00:00 100.0 F H 76 24 118/58 95 09/09/18 23:00 80 28 H 104/45 96 09/09/18 22:00 74 30 H 101/55 97 09/09/18 21:00 79 28 H 109/49 96 09/09/18 20:00 100.6 F H 80 16 103/48 97 09/09/18 19:24 71 09/09/18 19:15 71 100 09/09/18 19:00 70 25 H 106/50 100 09/09/18 18:00 69 17 100/49 95 09/09/18 17:00 75 20 106/51 96 09/09/18 16:00 77 19 105/50 97 09/09/18 15:00 75 25 H 104/45 93 L 09/09/18 14:00 76 21 103/57 90 L Intake and Output 09/09/18 09/10/18 09/10/18 22:59 06:59 14:59 Intake Total 160 1040 Output Total 695 240 151 Balance -535 -240 889 Intake: IV 0 130 Furosemide 100 mg In 30 Sodium Chloride 0.9% 90 ml @ 10 MG/HR 10 mls/hr IV .Q10H [facility] Rx#: [id number] Sodium Chloride 0.9% 1, 0 000 ml @ 50 mls/hr IV . Q20H [facility] Rx#:[id number] Sodium Ferric Gluconat- 100 Sucrose 125 mg In Sodium Chloride 0.9% 100 ml @ 100 mls/hr IVPB DAILY [facility] Rx#:[id number] Intake, IV Titration 0 Amount Furosemide 100 mg In 0 Sodium Chloride 0.9% 90 ml @ 10 MG/HR 10 mls/hr IV .Q10H [facility]OS Rx#: [id number] Oral 160 600 Blood Product 310 Rc As-3 Unit 0 [id number] Output: Urine 695 240 151 Other: Voiding Method Indwelling Catheter Indwelling Catheter Weight 110.5 kg 110.5 kg General appearance: The patient is alert, fatigued weak. HET: Head is normocephalic and atraumatic. Pupils are equal and reactive. Oropharynx is clear without lesions. Neck: Supple without lymphadenopathy. Trachea midline. Heart: S1 S2. Regular rate and rhythm. Lungs: No diminished I Basler crackles are heard. Abdomen: Soft, nontender, nondistended with bowel sounds. No peritoneal signs. No palpable organomegaly or masses. Extremities: Normal skin color and turgor. No cyanosis, rash, ulceration, clubbing, or edema. Radial and pedal pulses are 2/4 bilaterally. Neurological: No focal deficits. Strength and sensation are grossly intact. Results CBC & Chem 7: 09/10/18 04:27 09/10/18 04:27 Labs: Abnormal Lab Results - Last 24 Hours (Table) 09/09/18 09/10/18 09/10/18 Range/Units 05:13 04:27 04:27 WBC 13.7 H (3.8-10.6) k/uL RBC 2.23 L (4.30-5.90) m/uL Hgb 6.6 L* (13.0-17.5) gm/dL Hct 20.4 L (39.0-53.0) % RDW 18.6 H (11.5-15.5) % Sodium 133 L (137-145) mmol/L BUN 61 H (9-20) mg/dL Creatinine 1.57 H (0.66-1.25) mg/dL Glucose 107 H (74-99) mg/dL Iron 26 L (65-175) ug/dL Iron Saturation 9.81 L (15.00-50.00) Crossmatch 09/10/18 Range/Units 10:54 WBC (3.8-10.6) k/uL RBC (4.30-5.90) m/uL Hgb (13.0-17.5) gm/dL Hct (39.0-53.0) % RDW (11.5-15.5) % Sodium (137-145) mmol/L BUN (9-20) mg/dL Creatinine (0.66-1.25) mg/dL Glucose (74-99) mg/dL Iron (65-175) ug/dL Iron Saturation (15.00-50.00) Crossmatch See Detail Assessment and Plan Assessment: Impression: 1. Acute on chronic anemia component of acute blood loss an underlying occult GI bleed cannot be excluded history of small bowel GI bleeding presently anticoagulation is on hold. 2. Acute hypoxic respiratory failure secondary to CHF on BiPAP. 3. History of EtOH abuse. 4. History of Zhu's esophagus. 5. Elevated troponin. 6. History of CAD valvular heart disease aVR bioprosthetic. 7. Moderate pulmonary hypertension. Plan: 1. Inpatient endoscopic exams are not planned at this time patient's overall clinical status is poor for endoscopic procedures. Family was at bedside. It was explained to family that component of his acute on chronic anemia could be a result of occult small bowel bleeding angiectasia exacerbated by anticoagulation therapy as previously investigated in the past. 2. Advise conservative measures for now. Case was discussed with primary. Tic coagulation on hold CBC monitoring. Blood transfusions as indicated. We'll follow closely with you. Thank you for this kind referral and the opportunity to participate in the care of your patient. This consultation was discussed with Dr. Coon. The impression and plan of care have been directed as dictated.
[2018-09-10 16:56] LABS: Anisocytosis Slight; Basophils % (A) 0 %; Eosinophils # (A) 0.1 k/uL (0-0.7); Eosinophils % (A) 0 %; HGB 7.3 gm/dL (13.0-17.5); Lymphocytes # (A) 0.5 k/uL (1.0-4.8); Lymphocytes % (A) 4 %; MCH 30.3 pg (25.0-35.0); MCV 91.9 fL (80.0-100.0); Mean Platelet Volume 7.8; Monocytes # (A) 0.7 k/uL (0-1.0); Monocytes % (A) 5 %; Neutrophils # (A) 12.2 k/uL (1.3-7.7); Neutrophils % (A) 89 %; Platelet Count 205 k/uL (150-450); RDW 18.5 % (11.5-15.5); WBC 13.7 k/uL (3.8-10.6)
[2018-09-10] MEDS: ATORVASTATIN 40 MG TAB PO SCH (20:19)
--- NOTE | 2018-09-10 21:42 | P.PN ---
Progress Note - Text Progress Note Date: 09/10/18 Chief Complaint: tired History of presenting complaint: This is a 68-year-old patient who follows with Dr. Chávez, was at [facility] at [facility]. he was discharged on August 28. Patient was admitted last time with CHF exacerbation and also had the GI bleed. Patient was followed conservatively for the same. Eliquis had been held. And then reintroduced. Chronic stable medical conditions include hypertensive heart disease, bicuspid aortic valve, peripheral artery disease with stent, or severe arthritis, coronary artery disease, hyperlipidemia, Zhu's esophagus, chronic colonic diverticulosis, paroxysmal atrial fibrillation for which patient been on Eliquis,. Patient's history is primary given by the daughter the bedside. At the skilled nursing daughter states patient has not been doing too well. Easily gets short of breath. Has not really involved in therapy. Not much of an appetite. We will drink some ensure etc. Lethargic at times. Confused at times. Other times more awake. Patient yesterday was found to be short of breath. Was hypoxic. He required BiPAP. Became more confused. Patient was moved to the ICU. Required BiPAP and Lasix. Patient not been reported of any GI bleed. Hemoglobin was down to 6.8. Repeat hemoglobin was above 7. Today-in ICU. all night had decreased urine output. Earlier did get 40 mg of IV Lasix.. Subsequently put on Lasix drip at 10 mics an hour. Hemoglobin did drop down to 6.6. One unit was being transfused. Patient has been more lethargic. Bili able to come and take it. Daughter has made the patient DO NOT RESUSCITATE is appropriate patient was on BiPAP. Patient ate about 25% of his breakfast. Eliquis is being held. Review of systems: Attempted for constitutional, cardiovascular, GI, pulmonary. relevant finding as above Current medications are reviewed that included: DuoNeb, Eliquis-held, Cordarone, Lasix drip, Lopressor-has been held Physical examination: VITAL SIGNS: 98.6, 74, 25, 1 tablet by 53, 98% GENERAL: Propped up in bed, lethargic with BiPAP EYES: Pupils equal. Conjunctiva normal. HEENT: External appearance of nose and ears normal, BiPAP in place NECK: JVD or bruit assess; masses not palpable. HEART: First and second heart sounds are normal; minimal edema. LUNGS: Respiratory rate increased, decreased breaths on some crackles. ABDOMEN: Soft, nontender, liver spleen not palpable, no masses palpable. PSYCH: Unable to assess as patient rather tired NEUROLOGICAL: Cranial nerves grossly intact; no facial asymmetry, power and sensation grossly intact. Investigations, reviewed in the clinical context White count 13.7 hemoglobin 6.6 potassium 4.9 BUN 61 and creatinine 1.57 Assessment: -Acute on chronic congestive heart failure from severe diastolic dysfunction EF 50-55% -Hypertensive heart disease Essential hypertension Bicuspid aortic valve is peripheral artery disease with a prior stent next primary osteoarthritis and coronary artery disease and hyperlipidemia next Zhu's esophagus with history of alcoholism Chronic colonic diverticulosis and obesity BMI 34 Paroxysmal atrial fibrillation for which patient chronically on Eliquis -Acute metabolic encephalopathy, multifactorial, with with worsening -Acute medical debility multifactorial -Acute blood loss anemia suspected GI bleed patient had been on Eliquis, with no outward evidence -Hypertension likely from blood loss -DO NOT RESUSCITATE Plan: Patient getting a unit of blood. Patient had been made DO NOT RESUSCITATE. On Lasix drip. Also getting BiPAP. Prognosis guarded
[2018-09-11 04:48] LABS: Anisocytosis Slight; HCT 22.1 % (39.0-53.0); MCH 29.2 pg (25.0-35.0); MCHC 31.8 g/dL (31.0-37.0); MCV 91.8 fL (80.0-100.0); Mean Platelet Volume 7.7; Platelet Count 222 k/uL (150-450); Poikilocytosis Slight; RDW 18.7 % (11.5-15.5); WBC 16.7 k/uL (3.8-10.6)
[2018-09-11 05:16] LABS: Calcium 8.3 mg/dL (8.4-10.2); Potassium 4.7 mmol/L (3.5-5.1)
[2018-09-11] MEDS: FUROSEMIDE 100 MG in SODIUM CHLORIDE 0.9% 90 ML IV SCH ×3 (06:26→14:50)
--- NOTE | 2018-09-11 08:06 | P.PN ---
Subjective Patient is seen in follow-up for acute kidney injury. His baseline creatinine is 1 and is up to 1.7 today,which is due to diuresis . Hemoglobin was down to 6.6 yesterday and he did receive 1 unit of blood transfusion. He remains dyspneic. He was started on Lasix drip on September 10. Urine output has been in the range of 30-100 mL per hour. Oral intake is quite poor. Vital signs are stable. General: The patient appeared well nourished and normally developed. HEENT: Head exam is unremarkable. Neck is without jugular venous distension. LUNGS: Breath sounds decreased. HEART: Rate and Rhythm are regular. First and second heart sounds normal. No murmurs, rubs or gallops. ABDOMEN: Abdominal exam reveals normal bowel sounds. Non-tender and non- distended. EXTREMITITES: 1+ edema. Objective - Vital Signs Vital signs: Vital Signs Temp 98.2 F 09/11/18 04:00 Pulse 82 09/11/18 07:00 Resp 25 H 09/11/18 07:00 BP 98/51 09/11/18 07:00 Pulse Ox 93 L 09/11/18 07:00 Intake & Output 09/10/18 09/11/18 09/11/18 18:59 06:59 18:59 Intake Total 2035 750 15 Output Total 390 562 30 Balance 1645 188 -15 Weight 110.5 kg 112.4 kg Intake: IV 215 180 15 .9 35 60 5 Furosemide 100 mg In 80 120 10 Sodium Chloride 0.9% 90 ml @ 10 MG/HR 10 mls/hr IV .Q10H CARLOS Rx#: [id number] Sodium Ferric Gluconat- 100 Sucrose 125 mg In Sodium Chloride 0.9% 100 ml @ 100 mls/hr IVPB DAILY CARLOS Rx#:[id number] Intake, IV Titration 200 Amount Furosemide 100 mg In 200 Sodium Chloride 0.9% 90 ml @ 10 MG/HR 10 mls/hr IV .Q10H CARLOS Rx#: [id number] Oral 1200 370 Blood Product 620 Rc As-3 Unit 310 [id number] Output: Urine 390 562 30 Other: Voiding Method Indwelling Catheter Indwelling Catheter - Labs CBC & Chem 7: 09/11/18 04:38 09/11/18 04:38 Labs: Abnormal Lab Results - Last 24 Hours (Table) 09/10/18 09/10/18 09/11/18 Range/Units 10:54 16:25 04:38 WBC 13.7 H (3.8-10.6) k/uL RBC 2.40 L (4.30-5.90) m/uL Hgb 7.3 L (13.0-17.5) gm/dL Hct 22.0 L (39.0-53.0) % RDW 18.5 H (11.5-15.5) % Neutrophils # 12.2 H (1.3-7.7) k/uL Lymphocytes # 0.5 L (1.0-4.8) k/uL Sodium 127 L (137-145) mmol/L Chloride 93 L (98-107) mmol/L Carbon Dioxide 21 L (22-30) mmol/L BUN 74 H (9-20) mg/dL Creatinine 1.70 H (0.66-1.25) mg/dL Glucose 101 H (74-99) mg/dL Calcium 8.3 L (8.4-10.2) mg/dL Crossmatch See Detail 09/11/18 Range/Units 04:38 WBC 16.7 H (3.8-10.6) k/uL RBC 2.40 L (4.30-5.90) m/uL Hgb 7.0 L (13.0-17.5) gm/dL Hct 22.1 L (39.0-53.0) % RDW 18.7 H (11.5-15.5) % Neutrophils # (1.3-7.7) k/uL Lymphocytes # (1.0-4.8) k/uL Sodium (137-145) mmol/L Chloride (98-107) mmol/L Carbon Dioxide (22-30) mmol/L BUN (9-20) mg/dL Creatinine (0.66-1.25) mg/dL Glucose (74-99) mg/dL Calcium (8.4-10.2) mg/dL Crossmatch Microbiology - Last 24 Hours (Table) 09/10/18 09:22 Blood Culture - Final Blood 09/10/18 14:30 Wound Culture - Preliminary Buttock 09/10/18 14:30 Anaerobic Culture - Preliminary Coccyx Assessment and Plan Plan: Assessment: 1. Acute kidney injury mostly prerenal secondary to cardiorenal syndrome. Baseline creatinine near 1. 1.7 today. Urinalysis is benign. 2. Dyspnea secondary to volume overload. 3. Diastolic CHF. 4. Anemia. No active bleeding noted. Hgb 6.6 today. Iron deficiency noted. GI consulted. 5. Metabolic acidosis secondary to acute kidney injury. Stable. 6. Hyponatremia. Patient is hypervolemic. Plan: Increase Lasix drip to 15 mL an hour. IV iron x 3 doses. Second dose today. Continue to monitor renal function and urine output. Encouraged oral intake. 1200 mL free water restriction. Check serum osmolality, urine osmolality and urine random sodium.
[2018-09-11] MEDS: SODIUM FERRIC GLUCONAT-SUCROSE 125 MG in SODIUM CHLORIDE 0.9% 100 ML IVPB SCH (08:36)
[2018-09-11] MEDS: ASPIRIN 81 MG PO SCH (08:36)
[2018-09-11] MEDS: AMIODARONE 200 MG TAB PO SCH ×2 (08:37→21:06)
[2018-09-11] MEDS: GABAPENTIN 100 MG CAP PO SCH ×3 (08:37→21:06)
[2018-09-11] MEDS: METOPROLOL TARTRATE 25 MG TAB PO SCH ×3 (08:37→21:04)
[2018-09-11] MEDS: IPRATROPIUM-ALBUTEROL 3 ML NEB INHALATION SCH ×3 (08:42→19:36)
[2018-09-11] MEDS ORDERED: AMOXIC-POT CLAV 875-125MG 1 EACH TAB PO SCH (09:00)
--- NOTE | 2018-09-11 09:20 | P.PN ---
Subjective Progress Note Date: 09/11/18 Principal diagnosis: Acute hypoxemic respiratory failure secondary to congestive heart failure On 09/09/2018 patient seen in follow-up in intensive care unit. He is awake and alert on today's exam, he was maintained on BiPAP support overnight, with pressures of 12/5, and FiO2 of 50%, currently on the nasal cannula trial at 5 L/m. He does seem to be moderately dyspneic, and fatigued, will be placed back on BiPAP support if shows more signs of fatigue or decompensation. Denies any chest pain. Patient was on Lasix drip at 10 mg per hour, which was discontinued this morning. Produced 2783 mL of urine output in the last 24 hours, and he is in -1138 mL fluid balance over the last 24 hours. Still has lower extremity edema, which is improving, and the skin on lower extremities is starting to show some signs of wrinkling. Lung sounds are diminished, with bibasilar crackles. Today's chest x-ray has been reviewed with Dr. Denny, showing worsening findings digestive of pulmonary edema, bilateral pleural effusions. Today's labs have been reviewed, showing white blood cell count of 12.9, hemoglobin of 7.2, serum sodium was 134, potassium is 4.5, chloride was 102, CO2 is 20, BUN was 51, creatinine is 1.38, CK-MB was 2.6, and this morning his troponin is 0.773. He is on Eliquis for anticoagulation, metoprolol, and oral Cordarone atrial fibrillation, and the rate is ranging from 89-100 BPM. On 09/10/2018 patient seen in follow-up in the intensive care unit. Patient is awake and alert, he is on BiPAP support pressures 12/5, and FiO2 of 35%. Appears fatigued, and dyspneic. Today's chest x-ray has been reviewed with Dr. Denny, still showing interstitial edema, more confluent edema at the lung bases, and left greater than right pleural effusions. It have low-grade fevers last night, with a T-max of 100.6F. Today's labs have been reviewed, showing white blood cell count of 13.7, hemoglobin of 6.6, serum sodium is 133, potassium is 4.9, chloride was 98, CO2 was 22, BUN was 61 and creatinine is 1.57. Patient is currently on IV Lasix at 40 mg every 12 hours, and his urine output has been quite low, ranging from 15-33 mL per hours. Lung sounds are diminished, with bibasilar crackles. Patient is a full code, will continue with current therapies, nephrology is on, today's labs show slight increase in renal profile, however in view of poor diuresis IV Lasix has been changed to Lasix drip at 10 mg per hour. On 09/03/2018 patient seen in follow-up in the intensive care unit, he is awake and alert, seems to be less dyspneic, fairly comfortable, currently on 5 L of oxygen, with a pulse ox of 92-93%, he is afebrile, did have a low-grade temp last night, with T-max of 100 0F. Lung sounds are diminished, patient has a weak nonproductive cough, blood culture and Gram stain showed gram-positive cocci in pairs and chains, possibly Streptococcus pneumonia, we'll start patient on oral Augmentin. Patient continues on Lasix infusion at 10 mg per hour. She will give the patient a unit of packed red blood cells, this morning's hemoglobin is 7.0, white blood cell 16.7, serum sodium is 127, potassium is 4.7, chloride is 93, CO2 is 21, urine output in the order of 30-50 ML per hour. Weight is actually up by 1.9 kg. Clinically patient is breathing easier today. BiPAP support intermittently, and feels very uncomfortable with the BiPAP sup port, frequently requests is off. Yesterday we spent quite a bit of time discussing patient's condition with the patient's family, his son and daughter, both agreed that patient should be DO NOT RESUSCITATE, and in the event of clinical deterioration patient should not be resuscitated. Tinea with supportive medical treatment right now. Objective - Vital Signs Vital signs: Vital Signs Temp 98.2 F 09/11/18 04:00 Pulse 80 09/11/18 08:44 Resp 25 H 09/11/18 07:00 BP 98/51 09/11/18 07:00 Pulse Ox 93 L 09/11/18 07:00 Intake & Output 09/10/18 09/11/18 09/11/18 18:59 06:59 18:59 Intake Total 2035 750 42.333 Output Total 390 562 30 Balance 1645 188 12.333 Weight 110.5 kg 112.4 kg Intake: IV 215 180 15 .9 35 60 5 Furosemide 100 mg In 80 120 10 Sodium Chloride 0.9% 90 ml @ 10 MG/HR 10 mls/hr IV .Q10H [facility] Rx#: [id number] Sodium Ferric Gluconat- 100 Sucrose 125 mg In Sodium Chloride 0.9% 100 ml @ 100 mls/hr IVPB DAILY [facility] Rx#:[id number] Intake, IV Titration 200 27.333 Amount Furosemide 100 mg In 200 27.333 Sodium Chloride 0.9% 90 ml @ 10 MG/HR 10 mls/hr IV .Q10H [facility] Rx#: [id number] Oral 1200 370 Blood Product 620 Rc As-3 Unit 310 [id number] Output: Urine 390 562 30 Other: Voiding Method Indwelling Catheter Indwelling Catheter Indwelling Catheter - Exam GENERAL EXAM: Alert, pleasant, 68-year-old white male, on 5 L of oxygen a pulse ox of 92-93% HEAD: Normocephalic/atraumatic. EYES: Normal reaction of pupils, equal size. Conjunctiva pink, sclera white. NOSE: Clear with pink turbinates. THROAT: No erythema or exudates. NECK: No masses, no JVD, no thyroid enlargement, no adenopathy. CHEST: No chest wall deformity. Symmetrical expansion. LUNGS: Equal air entry with diminished breath sounds and bibasilar crackles CVS: Regular rate and rhythm, normal S1 and S2, no gallops, no murmurs, no rubs ABDOMEN: Soft, nontender. No hepatosplenomegaly, normal bowel sounds, no guarding or rigidity. EXTREMITIES: No clubbing, 1+ pitting edema, no cyanosis, 2+ pulses and upper and lower extremities. MUSCULOSKELETAL: Muscle strength and tone normal. SPINE: No scoliosis or deformity SKIN: No rashes CENTRAL NERVOUS SYSTEM: Alert and oriented -3. No focal deficits, tone is normal in all 4 extremities. PSYCHIATRIC: Alert and oriented -3. Appropriate affect. Intact judgment and insight. - Labs CBC & Chem 7: 09/11/18 04:38 09/11/18 04:38 Labs: Abnormal Lab Results - Last 24 Hours (Table) 09/10/18 09/10/18 09/11/18 Range/Units 10:54 16:25 04:38 WBC 13.7 H (3.8-10.6) k/uL RBC 2.40 L (4.30-5.90) m/uL Hgb 7.3 L (13.0-17.5) gm/dL Hct 22.0 L (39.0-53.0) % RDW 18.5 H (11.5-15.5) % Neutrophils # 12.2 H (1.3-7.7) k/uL Lymphocytes # 0.5 L (1.0-4.8) k/uL Sodium 127 L (137-145) mmol/L Chloride 93 L (98-107) mmol/L Carbon Dioxide 21 L (22-30) mmol/L BUN 74 H (9-20) mg/dL Creatinine 1.70 H (0.66-1.25) mg/dL Glucose 101 H (74-99) mg/dL Calcium 8.3 L (8.4-10.2) mg/dL Crossmatch See Detail 09/11/18 Range/Units 04:38 WBC 16.7 H (3.8-10.6) k/uL RBC 2.40 L (4.30-5.90) m/uL Hgb 7.0 L (13.0-17.5) gm/dL Hct 22.1 L (39.0-53.0) % RDW 18.7 H (11.5-15.5) % Neutrophils # (1.3-7.7) k/uL Lymphocytes # (1.0-4.8) k/uL Sodium (137-145) mmol/L Chloride (98-107) mmol/L Carbon Dioxide (22-30) mmol/L BUN (9-20) mg/dL Creatinine (0.66-1.25) mg/dL Glucose (74-99) mg/dL Calcium (8.4-10.2) mg/dL Crossmatch Microbiology - Last 24 Hours (Table) 09/10/18 14:30 Gram Stain - Preliminary Buttock Wound Culture - Preliminary 09/10/18 09:22 Blood Culture - Final Blood 09/10/18 14:30 Anaerobic Culture - Preliminary Coccyx Assessment and Plan Plan: Assessment: #1. Acute hypoxic respiratory failure secondary to congestive heart failure with mildly reduced ejection fraction previously documented EF between 50-55%, remains on BiPAP support intermittently #2. Acute kidney injury #3. History of of chronic atrial fibrillation, on Eliquis #4. Possible chronic obstructive pulmonary disease from previous tobacco use #5. Moderate pulmonary hypertension, with right-sided pressures of 46 mmHg #6. Elevated troponins, could be related to hypoxemia, rule out non-ST elevated AL #7. History of aortic valve replacement with a bioprosthetic tissue valve #8. Coronary artery disease status post coronary artery bypass grafting #9. Chronic anemia #10. Hypertension #11. Hyperlipidemia #12. History of myocardial infarction #13. Degenerative joint disease #14. Peripheral vascular disease Plan: We'll continue BiPAP support on as-needed basis, this morning patient appears to be more comfortable, less dyspneic. No new chest x-rays today. Continues on Lasix drip at 10 mg per hour, will add Augmentin for blood cultures positive for gram-positive cocci impairs in chains. Will await the final culture. Today's hemoglobin is 7.0, no evidence of bleeding. Patient is also receiving iron transfusions per nephrology. Yesterday we had a lengthy discussion with the family," status was changed to DO NOT RESUSCITATE, we'll continue with supportive medical treatment. I performed a history & physical examination of the patient and discussed their management with my nurse practitioner, Gina Field. I reviewed the nurse practitioner's note and agree with the documented findings and plan of care. Lung sounds are positive for diminished breath sounds. The findings and the impression was discussed with the patient. I attest to the documentation by the nurse practitioner. Time with Patient: Less than 30
--- NOTE | 2018-09-11 12:34 | P.CONS ---
History of Present Illness - Reason for Consult Consult date: 09/11/18 Increased of ABC, positive blood culture - History of Present Illness This is a 68-year-old male patient known to ID service and was last seen during his hospitalization in May at which time he was treated for S treptococcus bovis/group D strep not enterococcus and was treated with IV Rocephin with PICC line. There was no evidence of endocarditis and potential source of sepsis was from the left lower abdominal quadrant where a biopsy by radiology of the mass lesion was completed prior to discharge. Pathology report showed abdominal soft tissue: Degenerated/acellular material, nondiagnostic. Patient was discharged to [facility] on the [place] with Rocephin for 12 day course. Patient was escalated admitted August 16 through August 28 and ID was not involved in this admission. This was related to acute on chronic diastolic heart failure. Now, patient has presented on September 07 from the senior living regarding weakness, low hemoglobin and failure to thrive. Chest x-ray showed edema, pro- BP was 22,000. Patient was started on IV Lasix but decompensated and was transferred into the intensive care unit initially placed on BiPAP management by Dr. Denny. He has been followed by cardiology as well for paroxysmal atrial fibrillation as well as diastolic heart failure. Patient is also followed by Dr. Forman for acute kidney injury secondary to cardiorenal syndrome. He has been on a Lasix drip which is continued and urine output has been running between 30 and 100 mL per hour. GI is also following for acute on chronic anemia with no plan for intervention and conservative management only. Patient has had a blood culture obtained on admission that is showing gram-positive cocci in pairs and chains. There was concern for bacteremia and thus this ID consult was requested. Urine culture showing no growth after 18 hours. Wound culture is in progress. Patient does have up to foam to sacrum decubitus ulcer. Temperature max has been 100.6 on September 09, creatinine 1.7, white count is 16.7. Patient denies having any fever or chills. He he states his breathing is better today. He denies having cough or sputum production. Review of Systems Constitutional: Reports fatigue, Reports poor appetite, Reports weakness, Denies chills, Denies fever Ears, nose, mouth and throat: Denies dental pain, Denies mouth pain, Denies nasal congestion, Denies nasal discharge, Denies vertigo Cardiovascular: Reports decreased exercise tolerance, Reports dyspnea on exertion, Reports edema, Reports leg edema, Reports shortness of breath, Denies syncope Respiratory: Reports dyspnea, Denies congestion, Denies cough, Denies cough with sputum, Denies excessive sputum, Denies hemoptysis Gastrointestinal: Denies abdominal pain, Denies loss of appetite, Denies nausea, Denies vomiting Genitourinary: Denies dysuria, Denies urinary retention Musculoskeletal: Reports muscle weakness, Denies frequent falls, Denies gait dysfunction Integumentary: Denies pruritus, Denies rash, Denies wounds Neurological: Denies aphasia, Denies change in mentation Psychiatric: Denies anxiety, Denies depression Endocrine: Denies fatigue, Denies weight change Past Medical History Past Medical History: Atrial Fibrillation, Coronary Artery Disease (CAD), Cancer, COPD, GI Bleed, Hyperlipidemia, Hypertension, Liver Disease, Myocardial Infarction (MS), Osteoarthritis (OA), Vascular Disorder Additional Past Medical History / Comment(s): PVD, BACK PAIN, SWELLING IN ANKLES AND FEET, hx SKIN CANCER,NEUROPATHY,ALCOHOL INDUCED MYOPATHY, BARETTS ESOPHAGUS, COLONIC DIVERTICULOSIS Last Myocardial Infarction Date:: 01-20-13 History of Any Multi-Drug Resistant Organisms: None Reported Past Surgical History: Heart Catheterization, Heart Catheterization With Stent Additional Past Surgical History / Comment(s): aortic valve replacement 2012, aortogram, pt states 2 failed stent replacement-1 to each leg, PAIN CLINIC PROCEDURES, ABDOMINAL AORTOGRAM, Stent in right leg Past Anesthesia/Blood Transfusion Reactions: No Reported Reaction Date of Last Stent Placement:: 05/30/15 Smoking Status: Former smoker Additional Past Alcohol Use History / Comment(s): Quit smoking October 2014, smoked for >50 yrs. Patient drinks 9-10 beers per day and quit 3 weeks ago. He is currently living alone. No pets in the home. 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 He was in the [employer] stationed in [place]. He denies any travel. - Past Family History Mother Family Medical History: Deep Vein Thrombosis (DVT) Medications and Allergies Home Medications Medication Instructions Recorded Confirmed Type Atorvastatin [Lipitor] 80 mg PO HS@209910/06/14 09/07/18 History Metoprolol Tartrate [Lopressor] 25 mg PO BID@0900,2100 10/06/14/24/19 History Scribner-3 Fatty Acids/Fish Oil [Fish 1 cap PO DAILY@89910/06/14 09/07/18 History Oil 1,000 mg Softgel] Nitroglycerin Sl Tabs [Nitrostat] 0.4 mg SUBLINGUAL Q5M PRN #25 tab 05/14/15 09/07/18 Rx Amiodarone HCl [Pacerone] 200 mg PO DAILY@89906/27/16 09/07/18 History Apixaban [Eliquis] 5 mg PO BID@09,209909/24/17 09/07/18 History Ranitidine HCl [Zantac] 150 mg PO BID@09,209905/30/18 09/07/18 History Vitamin B Complex 1 cap PO DAILY@89906/07/18 09/07/18 History HYDROcodone/APAP 5-325MG [[place] 1 tab PO Q8H PRN 08/16/18 09/07/18 History 5-325] Isosorbide Mononitrate ER [Imdur] 15 mg PO DAILY@89908/16/18 09/07/18 History Spironolactone 50 mg PO DAILY@89908/16/18 09/07/18 History Furosemide [Lasix] 40 mg PO DAILY@89909/07/18 09/07/18 History Gabapentin [Neurontin] 100 mg PO TID@0900,1300,209909/07/18 09/07/18 History Lactose-Reduced Food [Ensure Plus] 120 ml PO TID@1000,1400,199909/07/18 09/07/18 History Losartan [Cozaar] 12.5 mg PO HS@209909/07/18 09/07/18 History Potassium Chloride ER [K-Dur 20] 20 meq PO DAILY@89909/07/18 09/07/18 History Allergies Allergy/AdvReac Type Severity Reaction Status Date / Time No Known Allergies Allergy Verified 09/07/18 17:31 Physical Exam Vitals: Vital Signs Temp Pulse Resp BP Pulse Ox 09/11/18 09:00 98.8 F 83 31 H 108/62 91 L 09/11/18 08:44 80 09/11/18 08:00 82 11 L 94/56 91 L 09/11/18 07:00 82 25 H 98/51 93 L 09/11/18 06:00 80 20 108/49 92 L 09/11/18 05:00 76 18 102/50 92 L 09/11/18 04:00 98.2 F 77 24 90/47 92 L 09/11/18 03:00 77 22 105/44 94 L 09/11/18 02:00 71 28 H 100/54 93 L 09/11/18 01:00 74 24 97/58 94 L 09/11/18 00:04 98.9 F 67 27 H 97/58 94 L 09/11/18 00:00 98.9 F 66 26 H 92/44 94 L 09/10/18 23:00 66 26 H 103/37 94 L 09/10/18 22:00 75 22 88/47 95 09/10/18 21:00 67 18 103/47 95 09/10/18 20:00 98.9 F 70 20 108/46 97 09/10/18 19:34 70 09/10/18 19:22 72 09/10/18 19:00 73 21 108/46 96 09/10/18 18:00 72 25 H 92/45 94 L 09/10/18 17:00 64 23 97/44 99 09/10/18 16:00 98.7 F 66 21 94/37 100 09/10/18 15:30 70 15 106/56 99 09/10/18 15:00 74 21 95/59 97 09/10/18 14:30 74 16 110/53 96 09/10/18 14:02 98.6 F 74 25 H 110/53 98 09/10/18 14:00 73 16 92/78 96 09/10/18 13:30 71 16 91/42 95 09/10/18 13:00 75 25 H 91/42 95 09/10/18 12:53 98.2 F 76 23 111/42 95 09/10/18 12:30 78 16 100/51 96 09/10/18 12:23 98.1 F 78 23 100/51 96 09/10/18 12:13 99.5 F 78 20 104/49 09/10/18 12:04 78 09/10/18 12:00 98.2 F 78 17 96/65 98 09/10/18 11:59 79 09/10/18 11:30 80 14 98/38 93 L 09/10/18 11:00 79 18 98/38 93 L 09/10/18 10:30 80 11 L 86/47 93 L Intake and Output 09/10/18 09/11/18 09/11/18 22:59 06:59 14:59 Intake Total 1190 220 392.333 Output Total 374 390 150 Balance 816 -170 242.333 Intake: IV 120 120 125 .9 40 40 15 Furosemide 100 mg In 80 80 10 Sodium Chloride 0.9% 90 ml @ 15 MG/HR 15 mls/hr IV .Q6H40M [facility]OS Rx#: [id number] Sodium Ferric Gluconat- 100 Sucrose 125 mg In Sodium Chloride 0.9% 100 ml @ 100 mls/hr IVPB DAILY [facility] Rx#:[id number] Intake, IV Titration 100 100 27.333 Amount Furosemide 100 mg In 100 100 27.333 Sodium Chloride 0.9% 90 ml @ 15 MG/HR 15 mls/hr IV .Q6H40M [facility]LOS Rx#: [id number] Oral 970 240 Output: Urine 374 390 150 Other: Voiding Method Indwelling Catheter Indwelling Catheter Indwelling Catheter Weight 112.4 kg Gen: This is a obese 68-year-old male. He is sitting up in the ICU bed and appears to be comfortable and in no acute distress. No respiratory dist ress is noted. HEENT: Head is atraumatic, normocephalic. Pupils equal, round. Sclerae is anicteric. Conjunctiva pink. Oral mucous membranes are moist. Dentures in place. NECK: Supple. No JVD. No lymphadenopathy. No thyromegaly. LUNGS: Diminished with bilateral crackles. No accessory muscle usage. No intercostal retractions. HEART: Regular rate and rhythm. No murmur. ABDOMEN: Soft. Bowel sounds are present. No masses. No tenderness. EXTREMITIES: 1+ bilateral pedal edema. No calf tenderness. Waffle boots in place. NEUROLOGICAL: Patient is awake, alert and oriented x3. Cranial nerves 2 through 12 are grossly intact. Generalized weakness noted. Results Results: Laboratory Results WBC 16.7 k/uL (3.8-10.6) H 09/11/18 04:38 RBC 2.40 m/uL (4.30-5.90) L 09/11/18 04:38 Hgb 7.0 gm/dL (13.0-17.5) L 09/11/18 04:38 Hct 22.1 % (39.0-53.0) L 09/11/18 04:38 MCV 91.8 fL (80.0-100.0) 09/11/18 04:38 MCH 29.2 pg (25.0-35.0) 09/11/18 04:38 MCHC 31.8 g/dL (31.0-37.0) 09/11/18 04:38 RDW 18.7 % (11.5-15.5) H 09/11/18 04:38 Plt Count 222 k/uL (150-450) 09/11/18 04:38 Neutrophils % 89 % 09/10/18 16:25 Lymphocytes % 4 % 09/10/18 16:25 Monocytes % 5 % 09/10/18 16:25 Eosinophils % 0 % 09/10/18 16:25 Basophils % 0 % 09/10/18 16:25 Neutrophils # 12.2 k/uL (1.3-7.7) H 09/10/18 16:25 Lymphocytes # 0.5 k/uL (1.0-4.8) L 09/10/18 16:25 Monocytes # 0.7 k/uL (0-1.0) 09/10/18 16:25 Eosinophils # 0.1 k/uL (0-0.7) 09/10/18 16:25 Basophils # 0.0 k/uL (0-0.2) 09/10/18 16:25 Hypochromasia Slight 09/10/18 04:27 Poikilocytosis Slight 09/11/18 04:38 Anisocytosis Slight 09/11/18 04:38 Macrocytosis Slight 09/09/18 05:13 PT 11.4 sec (9.0-12.0) 09/07/18 16:18 INR 1.1 (<1.2) 09/07/18 16:18 APTT 25.2 sec (22.0-30.0) 09/07/18 16:18 Sodium 127 mmol/L (137-145) L 09/11/18 04:38 Potassium 4.7 mmol/L (3.5-5.1) 09/11/18 04:38 Chloride 93 mmol/L (98-107) L 09/11/18 04:38 Carbon Dioxide 21 mmol/L (22-30) L 09/11/18 04:38 Anion Gap 13 mmol/L 09/11/18 04:38 BUN 74 mg/dL (9-20) H 09/11/18 04:38 Creatinine 1.70 mg/dL (0.66-1.25) H 09/11/18 04:38 Est GFR (CKD-EPI)AfAm 46 (>60 ml/min/1.73 sqM) 09/11/18 04:38 Est GFR (CKD-EPI)NonAf 40 (>60 ml/min/1.73 sqM) 09/11/18 04:38 Glucose 101 mg/dL (74-99) H 09/11/18 04:38 POC Glucose (mg/dL) 123 mg/dL (75-99) H 09/08/18 05:59 POC Glu Physician/Internist ID Verna Hoff 09/08/18 05:59 Osmolality 282 mosm/kg (280-301) 09/11/18 04:38 Plasma Lactic Acid [place] 1.0 mmol/L (0.7-2.0) 09/07/18 16:18 Calcium 8.3 mg/dL (8.4-10.2) L 09/11/18 04:38 Phosphorus 4.1 mg/dL (2.5-4.5) 09/07/18 16:18 Magnesium 2.0 mg/dL (1.6-2.3) 09/07/18 16:18 Iron 26 ug/dL (65-175) L 09/09/18 05:13 TIBC 265 ug/dL (228-460) 09/09/18 05:13 Iron Saturation 9.81 (15.00-50.00) L 09/09/18 05:13 Ferritin 227.0 ng/mL (22.0-322.0) 09/09/18 05:13 Total Bilirubin 1.8 mg/dL (0.2-1.3) H 09/08/18 04:31 AST 68 U/L (17-59) H 09/08/18 04:31 ALT 76 U/L (21-72) H 09/08/18 04:31 Alkaline Phosphatase 94 U/L (38-126) 09/08/18 04:31 Creatine Kinase 462 U/L (55-170) H 09/07/18 16:18 CK-MB (CK-2) 2.6 ng/mL (0.0-2.4) H 09/08/18 07:01 Troponin I 0.773 ng/mL (0.000-0.034) H* 09/08/18 07:01 NT-Pro-B Natriuret Pep 65659 pg/mL 09/07/18 16:18 Total Protein 6.6 g/dL (6.3-8.2) 09/08/18 04:31 Albumin 3.0 g/dL (3.5-5.0) L 09/08/18 04:31 Urine Color Yellow 09/07/18 18:28 Urine Appearance Clear (Clear) 09/07/18 18:28 Urine pH 5.5 (5.0-8.0) 09/07/18 18:28 Ur Specific [place] 1.012 (1.001-1.035) 09/07/18 18:28 Urine Protein Negative (Negative) 09/07/18 18:28 Urine Glucose (UA) Negative (Negative) 09/07/18 18:28 Urine Ketones Negative (Negative) 09/07/18 18:28 Urine Blood Negative (Negative) 09/07/18 18:28 Urine Nitrite Negative (Negative) 09/07/18 18:28 Urine Bilirubin Negative (Negative) 09/07/18 18:28 Urine Urobilinogen 2.0 mg/dL (<2.0) 09/07/18 18:28 Ur Leukocyte Esterase Negative (Negative) 09/07/18 18:28 Urine Osmolality 346 mosm/kg (50-1400) 09/11/18 09:01 Blood Type A Positive 09/10/18 10:54 Blood Type Recheck No 09/10/18 10:54 Antibody Screen NEGATIVE 09/10/18 10:54 Crossmatch See Detail 09/10/18 10:54 Spec Expiration Date 09/13/2018 6966 09/10/18 10:54 CBC & Chem 7: 09/11/18 04:38 09/11/18 04:38 Labs: Abnormal Lab Results - Last 24 Hours (Table) 09/10/18 09/10/18 09/11/18 Range/Units 10:54 16:25 04:38 WBC 13.7 H (3.8-10.6) k/uL RBC 2.40 L (4.30-5.90) m/uL Hgb 7.3 L (13.0-17.5) gm/dL Hct 22.0 L (39.0-53.0) % RDW 18.5 H (11.5-15.5) % Neutrophils # 12.2 H (1.3-7.7) k/uL Lymphocytes # 0.5 L (1.0-4.8) k/uL Sodium 127 L (137-145) mmol/L Chloride 93 L (98-107) mmol/L Carbon Dioxide 21 L (22-30) mmol/L BUN 74 H (9-20) mg/dL Creatinine 1.70 H (0.66-1.25) mg/dL Glucose 101 H (74-99) mg/dL Calcium 8.3 L (8.4-10.2) mg/dL Crossmatch See Detail 09/11/18 Range/Units 04:38 WBC 16.7 H (3.8-10.6) k/uL RBC 2.40 L (4.30-5.90) m/uL Hgb 7.0 L (13.0-17.5) gm/dL Hct 22.1 L (39.0-53.0) % RDW 18.7 H (11.5-15.5) % Neutrophils # (1.3-7.7) k/uL Lymphocytes # (1.0-4.8) k/uL Sodium (137-145) mmol/L Chloride (98-107) mmol/L Carbon Dioxide (22-30) mmol/L BUN (9-20) mg/dL Creatinine (0.66-1.25) mg/dL Glucose (74-99) mg/dL Calcium (8.4-10.2) mg/dL Crossmatch Microbiology - Last 24 Hours (Table) 09/10/18 14:30 Gram Stain - Preliminary Buttock Wound Culture - Preliminary 09/10/18 09:22 Blood Culture - Final Blood 09/10/18 14:30 Anaerobic Culture - Preliminary Coccyx Assessment and Plan Plan: This is a 68-year-old male presented to the hospital with acute hypoxic respirat ory failure secondary to acute on chronic diastolic heart failure, acute kidney injury, paroxysmal atrial fibrillation. The patient has a blood culture positive for gram-positive cocci in pairs and chains. He was previously treated for Streptococcus bovis/group D strep not enterococcus and was treated with IV Rocephin with PICC line in May of this year. There was no evidence of endocarditis and potential source of sepsis was from the left lower abdominal mass. Patient will be started on Rocephin and repeat blood culture obtained in the morning. Continue supportive care. Further medications as patient regresses. The above dictated assessment and findings were discussed with Dr. Ortez. The impression and plan of care have been directed as dictated. Ernestina Dalton nurse practitioner acting as scribe for Dr. Ortez.
--- NOTE | 2018-09-11 13:18 | P.PN ---
Subjective Progress Note Date: 09/11/18 Principal diagnosis: Anemia No active bleeding per nursing. T-max 100. Hemoglobin 7. Objective - Vital Signs Vital signs: Vital Signs Temp 98.8 F 09/11/18 09:00 Pulse 70 09/11/18 11:00 Resp 25 H 09/11/18 11:00 BP 97/57 09/11/18 11:00 Pulse Ox 94 L 09/11/18 11:00 Intake & Output 09/10/18 09/11/18 09/11/18 18:59 06:59 18:59 Intake Total 2035 750 397.333 Output Total 390 562 210 Balance 1645 188 187.333 Weight 110.5 kg 112.4 kg Intake: IV 215 180 130 .9 35 60 20 Furosemide 100 mg In 80 120 10 Sodium Chloride 0.9% 90 ml @ 15 MG/HR 15 mls/hr IV .Q6H40M [facility] Rx#: [id number] Sodium Ferric Gluconat- 100 100 Sucrose 125 mg In Sodium Chloride 0.9% 100 ml @ 100 mls/hr IVPB DAILY [facility] Rx#:[id number] Intake, IV Titration 200 27.333 Amount Furosemide 100 mg In 200 27.333 Sodium Chloride 0.9% 90 ml @ 15 MG/HR 15 mls/hr IV .Q6H40M [facility] Rx#: [id number] Oral 1200 370 240 Blood Product 620 Rc As-3 Unit 310 [id number] Output: Urine 390 562 210 Other: Voiding Method Indwelling Catheter Indwelling Catheter Indwelling Catheter - Exam General appearance: The patient is alert, fatigued weak. HET: Head is normocephalic and atraumatic. Pupils are equal and reactive. Oropharynx is clear without lesions. Neck: Supple without lymphadenopathy. Trachea midline. Heart: S1 S2. Regular rate and rhythm. Lungs: No diminished I Basler crackles are heard. Abdomen: Soft, nontender, nondistended with bowel sounds. No peritoneal signs. No palpable organomegaly or masses. Extremities: Normal skin color and turgor. No cyanosis, rash, ulceration, clubbing, or edema. Radial and pedal pulses are 2/4 bilaterally. Neurological: No focal deficits. Strength and sensation are grossly intact. - Labs CBC & Chem 7: 09/11/18 04:38 09/11/18 04:38 Labs: Abnormal Lab Results - Last 24 Hours (Table) 09/10/18 09/10/18 09/11/18 Range/Units 10:54 16:25 04:38 WBC 13.7 H (3.8-10.6) k/uL RBC 2.40 L (4.30-5.90) m/uL Hgb 7.3 L (13.0-17.5) gm/dL Hct 22.0 L (39.0-53.0) % RDW 18.5 H (11.5-15.5) % Neutrophils # 12.2 H (1.3-7.7) k/uL Lymphocytes # 0.5 L (1.0-4.8) k/uL Sodium 127 L (137-145) mmol/L Chloride 93 L (98-107) mmol/L Carbon Dioxide 21 L (22-30) mmol/L BUN 74 H (9-20) mg/dL Creatinine 1.70 H (0.66-1.25) mg/dL Glucose 101 H (74-99) mg/dL Calcium 8.3 L (8.4-10.2) mg/dL Crossmatch See Detail 09/11/18 Range/Units 04:38 WBC 16.7 H (3.8-10.6) k/uL RBC 2.40 L (4.30-5.90) m/uL Hgb 7.0 L (13.0-17.5) gm/dL Hct 22.1 L (39.0-53.0) % RDW 18.7 H (11.5-15.5) % Neutrophils # (1.3-7.7) k/uL Lymphocytes # (1.0-4.8) k/uL Sodium (137-145) mmol/L Chloride (98-107) mmol/L Carbon Dioxide (22-30) mmol/L BUN (9-20) mg/dL Creatinine (0.66-1.25) mg/dL Glucose (74-99) mg/dL Calcium (8.4-10.2) mg/dL Crossmatch Microbiology - Last 24 Hours (Table) 09/10/18 09:22 Blood Culture Gram Stain - Preliminary Blood Blood Culture - Preliminary Group D Enterococcus 09/10/18 14:30 Gram Stain - Preliminary Buttock Wound Culture - Preliminary 09/10/18 09:22 Blood Culture - Final Blood 09/10/18 14:30 Anaerobic Culture - Preliminary Coccyx Assessment and Plan Assessment: Impression: 1. Acute on chronic anemia component of acute blood loss an underlying occult GI bleed cannot be excluded history of small bowel GI bleeding presently anticoagulation is on hold. 2. Acute hypoxic respiratory failure secondary to CHF on BiPAP. 3. History of EtOH abuse. 4. History of Zhu's esophagus. 5. Elevated troponin. 6. History of CAD valvular heart disease aVR bioprosthetic. 7. Moderate pulmonary hypertension. Plan: 1. No CODE STATUS. Inpatient endoscopic exams are not planned at this time patient's overall clinical status is poor for endoscopic procedures. Family was at bedside. It was explained to family that component of his acute on chronic anemia could be a result of occult small bowel bleeding angiectasia exacerbated by anticoagulation therapy as previously investigated in the past. 2. Advise conservative measures for now. Case was discussed with primary. Anticoagulation on hold CBC monitoring. Blood transfusions as indicated. We'll follow closely with you. Assessment and plan a care discussed with Dr. Ramos
--- NOTE | 2018-09-11 15:49 | PN ---
PROGRESS NOTE DATE OF SERVICE: Mr. Brady is a gentleman with severe anemia, diastolic heart failure, status post mitral valve replacement and bypass surgery in the past. He is here with sometimes mental status changes, obtundation, has been on BiPAP, but last night he was not on BiPAP. His mentation is better. He is more alert. Denies chest pain. He is in a sinus rhythm with a first-degree heart rate in the 80s. Blood pressure is about 100 systolic. Hemoglobin is down to 7. Based on his persistent anemia and a drop of hemoglobin to less than 7, I discontinued his Eliquis yesterday. He received a unit of blood and hemoglobin is 7 today. Vital signs are stable today. S1, S2 with a short systolic murmur is audible. Lungs reveal diminished air entry. Abdomen and lower extremity exam is otherwise unchanged. Overall prognosis is poor for this gentleman with multiple comorbid conditions. MMODL / IJN: [id number] /
[2018-09-11] MEDS ORDERED: ALBUMIN HUMAN 5% 500 ML in EMPTY BAG 1 BAG IVPB ONE (17:10)
--- NOTE | 2018-09-11 17:10 | P.PN ---
Progress Note - Text Progress Note Date: 09/11/18 Chief Complaint: tired History of presenting complaint: This is a 68-year-old patient who follows with Dr. Chávez, was at [facility]. he was discharged on August 28. Patient was admitted last time with CHF exacerbation and also had the GI bleed. Patient was followed conservatively for the same. Eliquis had been held. And then reintroduced. Chronic stable medical conditions include hypertensive heart disease, bicuspid aortic valve, peripheral artery disease with stent, or severe arthritis, coronary artery disease, hyperlipidemia, Zhu's esophagus, chronic colonic diverticulosis, paroxysmal atrial fibrillation for which patient been on Eliquis,. Patient's history is primary given by the daughter the bedside. At the [facility] daughter states patient has not been doing too well. Easily gets short of breath. Has not really involved in therapy. Not much of an appetite. We will drink some ensure etc. Lethargic at times. Confused at times. Other times more awake. Patient yesterday was found to be short of breath. Was hypoxic. He required BiPAP. Became more confused. Patient was moved to the ICU. Required BiPAP and Lasix. Patient not been reported of any GI bleed. Hemoglobin was down to 6.8. Repeat hemoglobin was above 7. Today-in ICU. Was more awake in the morning. That became more tired. Urine output below. Had been on Lasix drip 10 mg an hour. Drop to 30 mL an hour. Lasix drip increased to 50 mg out. Minimal oral intake. Daughter by the bedside. Telemetry shows sinus rhythm. Review of systems: Attempted for constitutional, cardiovascular, GI, pulmonary. relevant finding as above Current medications are reviewed that included: DuoNeb, Eliquis-held, Cordarone, Lasix drip, Lopressor-resume today, IV Rocephin Physical examination: VITAL SIGNS: 97.4, 64, 24, 89/44, 93% on BiPAP GENERAL: Propped up in bed, lethargic with BiPAP lethargic but arousable EYES: Pupils equal. Conjunctiva normal. HEENT: External appearance of nose and ears normal, BiPAP in place NECK: JVD or bruit assess; masses not palpable. HEART: First and second heart sounds are normal; minimal edema. LUNGS: Respiratory rate increased, decreased breaths on some crackles. ABDOMEN: Soft, nontender, liver spleen not palpable, no masses palpable. PSYCH: Unable to assess as patient rather tired NEUROLOGICAL: Cranial nerves grossly intact; no facial asymmetry, power and sensation grossly intact. Investigations, reviewed in the clinical context White count 16.7, hemoglobin 7, sodium 127, potassium 4.7, BUN 74, creatinine 1.7 Blood cultures showing group D enterococcus Assessment: -Acute on chronic congestive heart failure from severe diastolic dysfunction EF 50-55% -Hypertensive heart disease Essential hypertension Bicuspid aortic valve is peripheral artery disease with a prior stent next primary osteoarthritis and coronary artery disease and hyperlipidemia next Zhu's esophagus with history of alcoholism Chronic colonic diverticulosis and obesity BMI 34 Paroxysmal atrial fibrillation for which patient chronically on Eliquis -Acute metabolic encephalopathy, multifactorial, with with worsening -Acute medical debility multifactorial -Acute blood loss anemia suspected GI bleed patient had been on Eliquis, with no outward evidence -Hypotension likely from blood loss -Acute renal failure most likely prerenal from cardiorenal syndrome -DO NOT RESUSCITATE -Positive blood cultures growing group D enterococcus -Acute blood loss anemia, cause undetermined Plan: ID was consulted. Prognosis remains not good. Discussed with daughter at the bedside. Patient's urine output has been decreasing. Patient may be intravascularly depleted. Some edema may be from third spacing. Prognosis is not good. Follow with chair caner and nephrology. Patient started on IV ceftriaxone
[2018-09-11] MEDS: HYDROcodone/APAP 5-325MG 1 EACH TAB PO PRN (17:53)
[2018-09-11] MEDS ORDERED: SODIUM CHLORIDE 0.9% 1,000 ML IV ONE (19:46)
--- NOTE | 2018-09-11 20:49 | P.CON ---
Consult Note - . Consult date: 09/11/18 Assessment/Plan:: This is a 68-year-old male patient known to ID service and was last seen during his hospitalization in May at which time he was treated for Streptococcus bovis/group D strep not enterococcus and was treated with IV Rocephin with PICC line. There was no evidence of endocarditis and potential source of sepsis was from the left lower abdominal quadrant where a biopsy by radiology of the mass lesion was completed prior to discharge. Pathology report showed abdominal soft tissue: Degenerated/acellular material, nondiagnostic. Patient was discharged to [facility] on the [place] with Rocephin for 12 day course. Patient was escalated admitted August 16 through August 28 and ID was not involved in this admission. This was related to acute on chronic diastolic heart failure. Now, patient has [facility] regarding weakness, low hemoglobin and failure to thrive. Chest x-ray showed edema, pro- BP was 22,000. Patient was started on IV Lasix but decompensated and was transferred into the intensive care unit initially placed on BiPAP management by Dr. Denny. He has been followed by cardiology as well for paroxysmal atrial fibrillation as well as diastolic heart failure. Patient is also followed by Dr. Forman for acute kidney injury secondary to cardiorenal syndrome. He has been on a Lasix drip which is continued and urine output has been running between 30 and 100 mL per hour. GI is also following for acute on chronic anemia with no plan for intervention and conservative management only. Patient has had a blood culture obtained on admission that is showing gram-positive cocci in pairs and chains. There was concern for bacteremia and thus this ID consult was requested. Urine culture showing no growth after 18 hours. Wound culture is in progress. Patient does have up to foam to sacrum decubitus ulcer. Temperature max has been 100.6 on September 09, creatinine 1.7, white count is 16.7. Patient denies having any fever or chills. He he states his breathing is better today. He d enies having cough or sputum production. Please see the consult note as dictated by AMMONIA DISTILLER Natasha Ernestina Dalton. Patient remains acutely ill with respiratory failure requiring BiPAP therapy. Continues to have difficulty with decompensated heart failure and cardiorenal syndrome being followed by cardiology and nephrology. The patient has had fever and evidence of leukocytosis. The nose evidence of positive blood cultures gram-positive cocci there appears and change very similar to prior events. With this antibiotic therapy with Rocephin is added in follow-up cultures requested. A follow-up echocardiogram requested with ongoing concerns for the possibility of endocarditis. The buttocks has evidence of pressure ulceration stage III present on admission. Patient also has evidence of pressure ulceration to his left heel, full-thickness also present on admission. The buttocks ulceration does have some foul odor. Cultures are pending. Patient may require further evaluation of the buttocks ulceration given his history of the Streptococcus bovis bacteremia history. Raises concern for the possibility of fistula or deep abscess. Metronidazole will be added to the Rocephin for now. I growth evaluation, assessment and plan as dictated by nurse practitioner Mrs. Ernestina Dalton.
[2018-09-11] MEDS: ATORVASTATIN 40 MG TAB PO SCH (21:06)
[2018-09-12 06:09] LABS: Anisocytosis Moderate; Basophils # (A) 0.1 k/uL (0-0.2); Basophils % (A) 1 %; Eosinophils # (A) 0.1 k/uL (0-0.7); Eosinophils % (A) 1 %; HCT 20.2 % (39.0-53.0); Hypochromasia Slight; Lymphocytes # (A) 0.4 k/uL (1.0-4.8); Lymphocytes % (A) 2 %; MCH 29.6 pg (25.0-35.0); MCHC 32.1 g/dL (31.0-37.0); MCV 92.4 fL (80.0-100.0); Macrocytosis Slight; Mean Platelet Volume 8.7; Monocytes # (A) 0.6 k/uL (0-1.0); Monocytes % (A) 4 %; Neutrophils # (A) 15.3 k/uL (1.3-7.7); Neutrophils % (A) 92 %; Platelet Count 202 k/uL (150-450); RBC 2.19 m/uL (4.30-5.90); RDW 20.9 % (11.5-15.5); WBC 16.7 k/uL (3.8-10.6)
[2018-09-12 06:12] LABS: Calcium 8.2 mg/dL (8.4-10.2); Potassium 5.1 mmol/L (3.5-5.1)
[2018-09-12] MEDS: FUROSEMIDE 100 MG in SODIUM CHLORIDE 0.9% 90 ML IV SCH (06:21)
[2018-09-12 06:27] LABS: HGB 6.5 gm/dL (13.0-17.5)
--- NOTE | 2018-09-12 06:46 | XR ---
EXAMINATION TYPE: XR chest 1V DATE OF EXAM: 09/12/2018 HISTORY: CHF/SOB. REFERENCE: Previous study dated 09/10/2018. FINDINGS: There has been a midline sternotomy. The heart enlarged. There is worsening alveolar airspace disease. There are small effusions. IMPRESSION: WORSENING CHANGES OF CONGESTIVE HEART FAILURE.
[2018-09-12] MEDS ORDERED: SODIUM CHLORIDE 0.9% 1,000 ML IV SCH (07:15)
[2018-09-12] MEDS ORDERED: SODIUM CHLORIDE 0.9% 1,000 ML IV ONE (07:47)
--- NOTE | 2018-09-12 07:55 | P.PN ---
Subjective Progress Note Date: 09/12/18 Seen and examined for the follow-up of acute kidney injury. Baseline creatinine is 1.0 MG per DL. Admitted with a creatinine of 1.3-1.4 MG per DL. Slowly creeping to 2.5 MG per DL today. Oliguric with dropping urine output to less than 500 in the last 24 hours. Feels lightheaded. No nausea vomiting or diarrhea. Blood pressures 70-80 systolic. Echo in May diastolic dysfunction with normal EF. He was on Lasix drip which was discontinued yesterday. Objective - Vital Signs Vital signs: Vital Signs Temp 98.1 F 09/12/18 04:00 Pulse 73 09/12/18 07:00 Resp 25 H 09/12/18 07:00 BP 85/51 09/12/18 07:00 Pulse Ox 95 09/12/18 07:00 Intake & Output 09/11/18 09/12/18 09/12/18 18:59 06:59 18:59 Intake Total 358.202 4035 Output Total 300 165 20 Balance 721.920 1303 -20 Weight 115.7 kg Intake: IV 130 999 .9 20 Furosemide 100 mg In 10 Sodium Chloride 0.9% 90 ml @ 15 MG/HR 15 mls/hr IV .Q6H40M [facility] Rx#: [id number] Sodium Chloride 0.9% 1, 999 000 ml @ 999 mls/hr IV . Q1H1M [facility] Rx#:[id number] Sodium Ferric Gluconat- 100 Sucrose 125 mg In Sodium Chloride 0.9% 100 ml @ 100 mls/hr IVPB DAILY [facility] Rx#:[id number] Intake, IV Titration 165.333 563 Amount Albumin Human 5% 500 ml 500 In Empty Bag 1 bag @ 500 mls/hr IVPB ONCE [facility] Rx#: [id number] Furosemide 100 mg In 115.333 63 Sodium Chloride 0.9% 90 ml @ 15 MG/HR 15 mls/hr IV .Q6H40M [facility] Rx#: [id number] cefTRIAXone 2 gm In 50 Sodium Chloride 0.9% 50 ml @ 100 mls/hr IVPB Q24HR [facility] Rx#:[id number] Oral 480 50 Output: Urine 300 165 20 Other: Voiding Method Indwelling Catheter Indwelling Catheter - Exam No acute distress S1-S2 heard Lungs sounds clear Trace edema - Labs CBC & Chem 7: 09/12/18 05:48 09/12/18 05:48 Labs: Abnormal Lab Results - Last 24 Hours (Table) 09/10/18 09/11/18 09/12/18 Range/Units 10:54 04:38 05:48 WBC (3.8-10.6) k/uL RBC (4.30-5.90) m/uL Hgb (13.0-17.5) gm/dL Hct (39.0-53.0) % RDW (11.5-15.5) % Neutrophils # (1.3-7.7) k/uL Lymphocytes # (1.0-4.8) k/uL Sodium 127 L (137-145) mmol/L Chloride 93 L (98-107) mmol/L Carbon Dioxide 19 L (22-30) mmol/L BUN 86 H (9-20) mg/dL Creatinine 2.54 H (0.66-1.25) mg/dL Calcium 8.2 L (8.4-10.2) mg/dL Albumin 3.0 L (3.5-5.0) g/dL Crossmatch See Detail 09/12/18 Range/Units 05:48 WBC 16.7 H (3.8-10.6) k/uL RBC 2.19 L (4.30-5.90) m/uL Hgb 6.5 L* (13.0-17.5) gm/dL Hct 20.2 L (39.0-53.0) % RDW 20.9 H (11.5-15.5) % Neutrophils # 15.3 H (1.3-7.7) k/uL Lymphocytes # 0.4 L (1.0-4.8) k/uL Sodium (137-145) mmol/L Chloride (98-107) mmol/L Carbon Dioxide (22-30) mmol/L BUN (9-20) mg/dL Creatinine (0.66-1.25) mg/dL Calcium (8.4-10.2) mg/dL Albumin (3.5-5.0) g/dL Crossmatch Microbiology - Last 24 Hours (Table) 09/10/18 14:30 Gram Stain - Preliminary Buttock Wound Culture - Preliminary Gram Neg Bacilli 09/10/18 09:22 Blood Culture Gram Stain - Preliminary Blood Blood Culture - Preliminary Group D Enterococcus Assessment and Plan Assessment: #1 oliguric acute kidney injury secondary to ischemic ATN with low blood pressures and over diuresis. #2 CKD2 secondary to nephrosclerosis with a baseline creatinine of 1.0 MG per DL. #3 hypotension #4 hypovolemic hyponatremia #5 mild hyperkalemia #6 diastolic CHF #7 anemia Plan: #1 agree with cardiology regarding IV fluids. Give 1 L bolus and continue with 0.9 at 75 ML's an hour. #2 add midodrine for hemodynamic support #3 avoid nephrotoxic agents and hypotensive episodes. #4 transfuse to maintain hemoglobin more than 8. #5 labs in the morning
[2018-09-12] MEDS: IPRATROPIUM-ALBUTEROL 3 ML NEB INHALATION SCH (08:14)
[2018-09-12] MEDS ORDERED: MIDODRINE 5 MG TAB PO SCH (08:15)
[2018-09-12] MEDS: SODIUM FERRIC GLUCONAT-SUCROSE 125 MG in SODIUM CHLORIDE 0.9% 100 ML IVPB SCH (08:23)
[2018-09-12] MEDS: ASPIRIN 81 MG PO SCH (08:31)
[2018-09-12] MEDS: GABAPENTIN 100 MG CAP PO SCH (08:32)
[2018-09-12 08:44] VITALS: TEMP 98.2
[2018-09-12] MEDS ORDERED: AMIODARONE 200 MG TAB PO SCH (09:00)
[2018-09-12] MEDS ORDERED: METOPROLOL TARTRATE 12.5 MG TAB PO SCH (09:00)
--- NOTE | 2018-09-12 09:01 | ECHOF ---
Referral Reason:Endocarditis MEASUREMENTS -------- HEIGHT: 177.8 cm WEIGHT: 112.0 kg BP: 97/57 RVIDd: 3.6 cm (< 3.3) IVSd: 1.3 cm (0.6 - 1.1) LVIDd: 5.8 cm (3.9 - 5.3) LVPWd: 1.3 cm (0.6 - 1.1) IVSs: 1.4 cm LVIDs: 5.0 cm LVPWs: 1.8 cm LAESV Index (A-L): 40.70 ml/m Ao Diam: 2.9 cm (2.0 - 3.7) AV Cusp: 0.7 cm (1.5 - 2.6) LA Diam: 6.1 cm (2.7 - 3.8) MV EXCURSION: 17.570 mm (> 18.000) MV EF SLOPE: 52 mm/s (70 - 150) EPSS: 1.7 cm MV E Reese: 0.95 m/s MV DecT: 193 ms MV A Reese: 0.67 m/s MV E/A Ratio: 1.42 AV maxP.98 mmHg AV meanP.06 mmHg AR PHT: 392 ms FINDINGS -------- Sinus rhythm. This was a technically difficult study with suboptimal views. The left ventricular size is normal. There is mild concentric left ventricular hypertrophy. Overa ll left ventricular systolic function is moderate-severely impaired with, an EF between 30 - 35 %. Mid anterior LV wall motion is hypokinetic. Mid lateral LV wall motion is hypokinetic. Mid infe rior LV wall motion is hypokinetic. Apical anterior LV wall motion is hypokinetic. The right ventricle is mildly enlarged. LA is severely dilated >40 ml/m2 The right atrium was not well visualized. 5.0mg of Lumason was utilized for enhancement of images Interatrial and interventricular septum intact. Aortic valve is trileaflet and is moderately thickened. There is moderate to severe aortic valve sc lerosis. There is mild aortic regurgitation. There is moderate aortic stenosis present. Peak/me an gradient across the Aortic Valve is 35.98mmHg / 21.06mmHg. Moderate mitral annular calcification present. Mild mitral regurgitation is present. Mild mitral stenosis. Trace tricuspid regurgitation present. There is no evidence of pulmonary hypertension. There is no pulmonic regurgitation present. The aortic root size is normal. IVC Not well visulized. There is no pericardial effusion. CONCLUSIONS -------- 1. Sinus rhythm. 2. This was a technically difficult study with suboptimal views. 3. The left ventricular size is normal. 4. There is mild concentric left ventricular hypertrophy. 5. Overall left ventricular systolic function is moderate-severely impaired with, an EF between 30 - 35 %. 6. Mid anterior LV wall motion is hypokinetic. 7. Mid lateral LV wall motion is hypokinetic. 8. Mid inferior LV wall motion is hypokinetic. 9. Apical anterior LV wall motion is hypokinetic. 10. The right ventricle is mildly enlarged. 11. LA is severely dilated >40 ml/m2 12. The right atrium was not well visualized. 13. 5.0mg of Lumason was utilized for enhancement of images 14. Interatrial and interventricular septum intact. 15. Aortic valve is trileaflet and is moderately thickened. 16. There is moderate to severe aortic valve sclerosis. 17. There is mild aortic regurgitation. 18. There is moderate aortic stenosis present. 19. Peak/mean gradient across the Aortic Valve is 35.98mmHg / 21.06mmHg. 20. Moderate mitral annular calcification present. 21. Mild mitral regurgitation is present. 22. Mild mitral stenosis. 23. Trace tricuspid regurgitation present. 24. There is no evidence of pulmonary hypertension. 25. There is no pulmonic regurgitation present. 26. The aortic root size is normal. 27. IVC Not well visulized. 28. There is no pericardial effusion. SPEEDER HAND: Tory Reese RDCS
--- NOTE | 2018-09-12 09:35 | PN ---
PROGRESS NOTE DATE OF SERVICE: September 12, 2018 The patient is a 68-year-old pleasant white male with history of exacerbation of CHF, presently was noted to have a hemoglobin of 7.9 on admission to the hospital. He has history of atrial fibrillation, was on Eliquis, currently on hold because of low hemoglobin. Since being in the hospital, did not have any evidence of active bleeding. He denies any abdominal pain. No nausea, vomiting. He does complain of some shortness of breath. Denies any rectal bleeding or melena. He did have an EGD and colonoscopy in April of 2017 for symptomatic anemia that showed evidence of gastritis and short segment Zhu's esophagus and sigmoid diverticulosis as well as colon polyps. Subsequently, he had a small bowel capsule endoscopy done and identified angioectasia in the proximal small bowel with active oozing, but subsequent small-bowel enteroscopy done by Dr. Ramos could not reveal any active bleeding. During this hospitalization, patient dropped his hemoglobin to 6.6 requiring 1 unit of PRBC transfusion 2 days ago. This morning, hemoglobin was down to 6.5 g/dL and receiving his 2nd unit of blood transfusion. Clinically no evidence of active bleeding. PHYSICAL EXAMINATION: He appears comfortable. No apparent distress. VITAL SIGNS: Stable. Blood pressure is 91/41, pulse rate 70, temperature 98.2. HEENT examination remarkable. Sclerae anicteric. Oral cavity no lesions. NECK: No JVD or lymph node enlargement. CHEST: Clear to auscultation. HEART: Regular rate and rhythm. ABDOMEN: Soft, nontender, nondistended. Bowel sounds are positive. EXTREMITIES: No pedal edema. SKIN no rashes. NEURO: He is alert and oriented x3. No focal deficits. LABS: From today WBC 16.7, hemoglobin 6.5, platelets 202, BUN 86, creatinine 2.54. IMPRESSION: Severe symptomatic anemia with clinically no evidence of active ongoing bleeding. As mentioned above, EGD and colonoscopy April of 2017 did show evidence of gastritis and diverticulosis and short-segment Zhu's esophagus. Subsequent small bowel capsule endoscopy in May of 2017 showed evidence of active bleeding from angioectasia in the proximal small bowel, but enteroscopy 2 weeks later did not reveal the same. Currently, he remains hemodynamically stable. Clinically no active bleeding. Most likely we are dealing with bleeding from angiectasia in the small bowel causing a drop in hemoglobin. Other causes of anemia also needs to be considered, especially in view of chronic renal insufficiency. RECOMMENDATIONS: 1. Continue to hold Eliquis. 2. Agree with 1 unit of PRBC transfusion. 3. Monitor CBC on a daily basis. 4. No plans on any endoscopic intervention at the present time. 5. We will follow him closely during his hospital stay. Thank you for this consultation. AVIVA / PRICE: [id number] /
[2018-09-12 10:04] VITALS: RESP 27
--- NOTE | 2018-09-12 10:23 | PN ---
PROGRESS NOTE Mr. Brady is a gentleman with chronic anemia, diastolic heart failure and paroxysmal atrial fibrillation, previous aortic valve replacement and bypass surgery. He also has issues from respiratory standpoint with probable sleep apnea type picture. However, last night, he is reasonably comfortably. He was in sinus rhythm. Blood pressure was somewhat low in the 90s. This morning, he responds to questions but somewhat slow. Heart rate is about 90 per minute, sinus with a first-degree and IVCD. He has blood pressure about 94 systolic. S1, S2 heard normally. Short systolic murmur noted. Lungs reveal diminished air entry. Abdomen and lower extremity exam is unchanged. Recommendations I am suggesting that we decrease amiodarone to 200 mg daily and Lopressor to 12.5 mg t.i.d. The patient has anemia and I have discontinued his Eliquis in view of low hemoglobin requiring transfusion. MMODL / IJN: [id number] /
--- NOTE | 2018-09-12 11:24 | P.PN ---
Subjective Progress Note Date: 09/12/18 Principal diagnosis: Acute hypoxemic respiratory failure secondary to congestive heart failure. The patient is seen today 09/12/2018 in follow-up in the intensive care unit. He is been having progressive shortness of breath, hypoxemia and bradycardia arrhythmias. He was eventually placed on BiPAP 16/8 and 35% FiO2. He is 0.9 normal saline at 75 mL per hour. He did require a fluid bolus for hypotension last evening. His condition has continued to deteriorate. Minimally responsive this morning. He is tachypneic. Bradycardic. Hypotensive. Initial blood cultures positive for group D enterococcus. All of blood cultures are negative. Wound cultures positive for gram-negative bacilli. He remains on Unasyn and ceftriaxone. Objective - Vital Signs Vital signs: Vital Signs Temp 98.2 F 09/12/18 08:00 Pulse 58 L 09/12/18 10:00 Resp 27 H 09/12/18 10:00 BP 91/75 09/12/18 10:00 Pulse Ox 100 09/12/18 10:00 Intake & Output 09/11/18 09/12/18 09/12/18 18:59 06:59 18:59 Intake Total 611.354 1564 1345 Output Total 300 165 60 Balance 087.637 5632 1285 Weight 115.7 kg Intake: IV 881 417 9600 .9 20 75 Furosemide 100 mg In 10 Sodium Chloride 0.9% 90 ml @ 15 MG/HR 15 mls/hr IV .Q6H40M [facility] Rx#: [id number] Sodium Chloride 0.9% 1, 999 1000 000 ml @ 999 mls/hr IV . Q1H1M [facility] Rx#:[id number] Sodium Ferric Gluconat- 100 100 Sucrose 125 mg In Sodium Chloride 0.9% 100 ml @ 100 mls/hr IVPB DAILY [facility] Rx#:[id number] Intake, IV Titration 165.333 563 50 Amount Albumin Human 5% 500 ml 500 In Empty Bag 1 bag @ 500 mls/hr IVPB ONCE [facility] Rx#: [id number] Furosemide 100 mg In 115.333 63 Sodium Chloride 0.9% 90 ml @ 15 MG/HR 15 mls/hr IV .Q6H40M [facility] Rx#: [id number] cefTRIAXone 2 gm In 50 50 Sodium Chloride 0.9% 50 ml @ 100 mls/hr IVPB Q24HR [facility] Rx#:[id number] Oral 480 50 120 Output: Urine 300 165 60 Other: Voiding Method Indwelling Catheter Indwelling Catheter Indwelling Catheter - Exam GENERAL EXAM: Obtunded, weak, 68-year-old male, on 5 L of oxygen a pulse ox of 95% HEAD: Normocephalic/atraumatic. EYES: Normal reaction of pupils, equal size. Conjunctiva pink, sclera white. NOSE: Clear with pink turbinates. THROAT: No erythema or exudates. NECK: No masses, no JVD, no thyroid enlargement, no adenopathy. CHEST: No chest wall deformity. Symmetrical expansion. LUNGS: Equal air entry with diminished breath sounds and bibasilar crackles CVS: Regular rate and rhythm, normal S1 and S2, no gallops, no murmurs, no rubs ABDOMEN: Soft, nontender. No hepatosplenomegaly, normal bowel sounds, no guarding or rigidity. EXTREMITIES: No clubbing, 1+ pitting edema, no cyanosis, 2+ pulses and upper and lower extremities. MUSCULOSKELETAL: Muscle strength and tone normal. SPINE: No scoliosis or deformity SKIN: No rashes CENTRAL NERVOUS SYSTEM: Tone is normal in all 4 extremities. PSYCHIATRIC: Obtunded, weak Appropriate affect. Intact judgment and insight. - Labs CBC & Chem 7: 09/12/18 05:48 09/12/18 05:48 Labs: Abnormal Lab Results - Last 24 Hours (Table) 09/10/18 09/11/18 09/12/18 Range/Units 10:54 04:38 05:48 WBC (3.8-10.6) k/uL RBC (4.30-5.90) m/uL Hgb (13.0-17.5) gm/dL Hct (39.0-53.0) % RDW (11.5-15.5) % Neutrophils # (1.3-7.7) k/uL Lymphocytes # (1.0-4.8) k/uL Sodium 127 L (137-145) mmol/L Chloride 93 L (98-107) mmol/L Carbon Dioxide 19 L (22-30) mmol/L BUN 86 H (9-20) mg/dL Creatinine 2.54 H (0.66-1.25) mg/dL Calcium 8.2 L (8.4-10.2) mg/dL Albumin 3.0 L (3.5-5.0) g/dL Crossmatch See Detail 09/12/18 Range/Units 05:48 WBC 16.7 H (3.8-10.6) k/uL RBC 2.19 L (4.30-5.90) m/uL Hgb 6.5 L* (13.0-17.5) gm/dL Hct 20.2 L (39.0-53.0) % RDW 20.9 H (11.5-15.5) % Neutrophils # 15.3 H (1.3-7.7) k/uL Lymphocytes # 0.4 L (1.0-4.8) k/uL Sodium (137-145) mmol/L Chloride (98-107) mmol/L Carbon Dioxide (22-30) mmol/L BUN (9-20) mg/dL Creatinine (0.66-1.25) mg/dL Calcium (8.4-10.2) mg/dL Albumin (3.5-5.0) g/dL Crossmatch Microbiology - Last 24 Hours (Table) 09/11/18 14:00 Blood Culture - Final Blood 09/11/18 13:42 Blood Culture - Final Blood 09/10/18 14:30 Gram Stain - Preliminary Buttock Wound Culture - Preliminary Gram Neg Bacilli 09/10/18 09:22 Blood Culture Gram Stain - Preliminary Blood Blood Culture - Preliminary Group D Enterococcus Assessment and Plan Assessment: Assessment: #1. Acute hypoxic respiratory failure secondary to congestive heart failure with mildly reduced ejection fraction previously documented EF between 50-55%, remains on BiPAP support #2. Acute kidney injury #3. History of of chronic atrial fibrillation, on Eliquis #4. Possible chronic obstructive pulmonary disease from previous tobacco use #5. Moderate pulmonary hypertension, with right-sided pressures of 46 mmHg #6. Elevated troponins, could be related to hypoxemia, rule out non-ST elevated OK #7. History of aortic valve replacement with a bioprosthetic tissue valve #8. Coronary artery disease status post coronary artery bypass grafting #9. Chronic anemia #10. Hypertension #11. Hyperlipidemia #12. History of myocardial infarction #13. Degenerative joint disease #14. Peripheral vascular disease Plan: The patient was seen and evaluated by Dr. Denny. Chest x-ray and labs reviewed. The patient's condition has deteriorated overnight. He is currently on BiPAP 16/8 and 35% FiO2. He received IV boluses. He is a DO NOT RESUSCITATE/DO NOT INTUBATE CODE STATUS. He would most likely require hospice/comfort care. Family has been notified and will inform us of their decision. I, the cosigning physician, performed a history & physical examination of the patient. Lungs sounds crackles in the bilateral posterior bases. Maintaining good O2 saturations in the 90s on BiPAP 16/8 with 35% FiO2. I discussed the assessment and plan of care with my nurse practitioner, Essie Suarez. I attest to the above note as dictated by her.
[2018-09-12] MEDS ORDERED: AMPICILLIN-SULBACTAM 3 GM in SODIUM CHLORIDE 0.9% 100 ML IVPB SCH (11:30)
[2018-09-12 11:43] VITALS: BP 105/95; PULSE 57
[2018-09-12] MEDS ORDERED: metroNIDAZOLE-NS PMX 500 MG in SALINE 1 100ML.BAG IVPB SCH (20:49)
--- NOTE | 2018-09-13 19:03 | P.DS ---
Providers Date of admission: 09/07/18 19:10 Expected date of discharge: 09/12/18 (Patient ) Attending physician: Jin Partida Consults: 09/07/18 19:10 Consult Physician Routine Consulting Provider: Alexandr Zamora Consult Reason/Comments: chf Do you want consulting provider notified?: Yes 09/08/18 19:56 Consult Physician Routine Consulting Provider: Tyree Forman Consult Reason/Comments: ckd Do you want consulting provider notified?: Yes 09/09/18 05:00 Consult Physician Routine Consulting Provider: David Denny Consult Reason/Comments: Dyspnea Do you want consulting provider notified?: Already Contacted 09/09/18 10:27 Consult Physician Routine Consulting Provider: Alberto Coon Consult Reason/Comments: anemia Do you want consulting provider notified?: Yes 09/11/18 06:21 Consult Physician Routine Consulting Provider: Michael Ortez Consult Reason/Comments: elevated WBCs and positive blood cultures Do you want consulting provider notified?: Yes Primary care physician: Jose Chávez Hospital Course: Cause of : Coronary artery disease Discharge diagnosis: -Acute on chronic congestive heart failure from severe diastolic dysfunction EF 50-55% -Hypertensive heart disease Essential hypertension Bicuspid aortic valve - peripheral artery disease with a prior stent next primary osteoarthritis coronary artery disease hyperlipidemia next Zhu's esophagus with history of alcoholism Chronic colonic diverticulosis and obesity BMI 34 Paroxysmal atrial fibrillation for which patient chronically on Eliquis -Acute metabolic encephalopathy, multifactorial, with with worsening -Acute medical debility multifactorial -Acute blood loss anemia suspected GI bleed patient had been on Eliquis, with no outward evidence -Hypotension likely from blood loss -Acute renal failure most likely prerenal from cardiorenal syndrome -DO NOT RESUSCITATE -Positive blood cultures growing group D enterococcus -Acute blood loss anemia, cause undetermined Hospital course: This is a 68-year-old patient who follows with Dr. Chávez, was at [facility]. he was discharged on August 28. Patient was admitted last time with CHF exacerbation and also had the GI bleed. Patient was followed conservatively for the same. Eliquis had been held. And then reintroduced. Chronic stable medical conditions include hypertensive heart disease, bicuspid aortic valve, peripheral artery disease with stent, or severe arthritis, coronary artery disease, hyperlipidemia, Zhu's esophagus, chronic colonic diverticulosis, paroxysmal atrial fibrillation for which patient been on Eliquis,. Patient's history is primary given by the daughter the bedside. At the [facility] daughter states patient has not been doing too well. Easily gets short of breath. Has not really involved in therapy. Not much of an appetite. We will drink some ensure etc. Lethargic at times. Confused at times. Other times more awake. Patient yesterday was found to be short of breath. Was hypoxic. He required BiPAP. Became more confused. Patient was moved to the ICU. Required BiPAP and Lasix. Patient not been reported of any GI bleed. Hemoglobin was down to 6.8. Repeat hemoglobin was above 7. Patient continued to deteriorate. Never made any remarkable recovery. Eventually patient's family decided to make the patient comfort care. Earlier in the day and patient subsequently succumbed later in the day. Consultants: Dr. Denny at all from pulmonary Dr. June Price at all from GI Dr. Meli tena from cardiology Dr. Michael Ortez from ID Dr. Forman at all from nephrology Patient Condition at Discharge: Critical Plan - Discharge Summary Discharge Rx Participant: No New Discharge Prescriptions: No Action Metoprolol Tartrate [Lopressor] 25 mg PO BID@0900,2100 Atorvastatin [Lipitor] 80 mg PO HS@2100 [place]-3 Fatty Acids/Fish Oil [Fish Oil 1,000 mg Softgel] 1 cap PO DAILY@0900 Nitroglycerin Sl Tabs [Nitrostat] 0.4 mg SUBLINGUAL Q5M PRN #25 tab PRN Reason: Chest Pain Amiodarone HCl [Pacerone] 200 mg PO DAILY@0900 Apixaban [Eliquis] 5 mg PO BID@0900,2100 Ranitidine HCl [Zantac] 150 mg PO BID@0900,2100 Vitamin B Complex 1 cap PO DAILY@0900 HYDROcodone/APAP 5-325MG [[place] 5-325] 1 tab PO Q8H PRN PRN Reason: Pain Spironolactone 50 mg PO DAILY@0900 Isosorbide Mononitrate ER [Imdur] 15 mg PO DAILY@0900 Furosemide [Lasix] 40 mg PO DAILY@0900 Lactose-Reduced Food [Ensure Plus] 120 ml PO TID@1000,1400,2000 Losartan [Cozaar] 12.5 mg PO HS@2100 Potassium Chloride ER [K-Dur 20] 20 meq PO DAILY@0900 Gabapentin [Neurontin] 100 mg PO TID@0900,1300,2099 Discharge Medication List Atorvastatin [Lipitor] 80 mg PO HS@209910/06/14 [History] Metoprolol Tartrate [Lopressor] 25 mg PO BID@899,209910/06/14 [History] [place]-3 Fatty Acids/Fish Oil [Fish Oil 1,000 mg Softgel] 1 cap PO DAILY@89910/06/14 [History] Nitroglycerin Sl Tabs [Nitrostat] 0.4 mg SUBLINGUAL Q5M PRN #25 tab 05/14/15 [Rx] Amiodarone HCl [Pacerone] 200 mg PO DAILY@89906/27/16 [History] Apixaban [Eliquis] 5 mg PO BID@899,209909/24/17 [History] Ranitidine HCl [Zantac] 150 mg PO BID@899,209905/30/18 [History] Vitamin B Complex 1 cap PO DAILY@89906/07/18 [History] HYDROcodone/APAP 5-325MG [[place] 5-325] 1 tab PO Q8H PRN 08/16/18 [History] Isosorbide Mononitrate ER [Imdur] 15 mg PO DAILY@89908/16/18 [History] Spironolactone 50 mg PO DAILY@89908/16/18 [History] Furosemide [Lasix] 40 mg PO DAILY@89909/07/18 [History] Gabapentin [Neurontin] 100 mg PO TID@0900,1300,209909/07/18 [History] Lactose-Reduced Food [Ensure Plus] 120 ml PO TID@1000,1400,199909/07/18 [History] Losartan [Cozaar] 12.5 mg PO HS@209909/07/18 [History] Potassium Chloride ER [K-Dur 20] 20 meq PO DAILY@89909/07/18 [History] Follow up Appointment(s)/Referral(s): Jose Chávez MD [Primary Care Provider] - 1-2 days Discharge Disposition: - Preliminary Cause of Preliminary Cause of : Coronary artery disease
--- NOTE | 2018-09-14 11:29 | CDI ---
Documentation Clarification Form Date: 09/14/2018 From: Richa Warren Phone: If questions call Taylor Loco @ [phone], Hours-8:30 am & 5 pm Rajesh Mena Admit Date: 09/07/2018 7:10:00 PM Patient Name: Catracho Brady Visit Number: [id number] Discharge Date: 09/12/2018 2:23:00 PM ATTENTION: The Clinical Documentation Specialists (CDI) and [facility] Coding Staff appreciate your assistance in clarifying documentation. Please respond to the clarification below the line at the bottom and electronically sign. The CDI & [facility] Coding staff will review the response and follow-up if needed. Please note: Queries are made part of the Legal Health Record. If you have any questions, please contact the author of this message via ITS. Dr. Jin Partida Conflicting documentation has been found in the medical record: Per Dr Denny consult - "History of chronic atrial fibrillation" Per Dr Hudson consult - "Paroxysmal atrial fibrillation" & per 09/09 PN "chronic persistent atrial fibrillation" Per your documentation - "Paroxysmal atrial fibrillation" History/Risk Factors: CABG, AVR, IN, PVD w stents Treatment: None due to bleeding In your professional opinion, can you please clarify the type of Atrial Fibrillation, if known? Chronic/Permanent Paroxysmal Persistent Other, please specify Unable to determine paroxsysmal atrial fibrillation MTDD
--- NOTE | 2018-09-14 11:49 | CDI ---
Documentation Clarification Form Date: 09/14/18 From: Richa Warren Phone: If questions call Taylor Loco @ [phone], Hours-8:30 am & 5 pm Rajesh Mena Admit Date: 09/07/2018 7:10:00 PM Patient Name: Catracho Brady Visit Number: [id number] Discharge Date: 09/12/2018 2:23:00 PM ATTENTION: The Clinical Documentation Specialists (CDI) and [facility] Coding Staff appreciate your assistance in clarifying documentation. Please respond to the clarification below the line at the bottom and electronically sign. The CDI & [facility] Coding staff will review the response and follow-up if needed. Please note: Queries are made part of the Legal Health Record. If you have any questions, please contact the author of this message via ITS. Dr. Jin Partida The patient presented with the following acute on chronic diastolic CHF and AMI. History/Risk Factors: pressure ulcers of buttocks, sacrum and left heel, metabolic encephalopathy WBC: 09/07-10.3 & 11.7; Neutrophils-9.1 & 10.3; Total bilirubin-09/07-1.2 & 09/08- 1.8; Lactic acid: 1.0 Blood cultures: Enterococcus faecium Vitals signs on admission: T-97.1, P-69, R-28, 121/40, O2 sat-96 ID Consult: yes Antibiotics: 09/11 IV Augmentin and IV Rocephin, IV Bolus: yes In your professional opinion, please clarify if these findings signify one of the following conditions, whether the condition is POA, and cause, if known: Condition Sepsis ruled out SIRS, without underlying infectious process Sepsis Severe Sepsis Septic Shock Other, please specify Unable to determine Present on Admission Yes No Identify the (suspected) organism Link or clarify if there is associated (due to/with): Organ failure Shock SIRS Criteria (2 or more of the following may indicate SIRS): -Temperature < 96.8F (36C) or > 101.0F (38.3C) -Heart Rate > 90 bpm -Respiratory Rate > 20 breaths/min or PaCO2 < 32 mmHg -White Blood Cell Count > 12,000 or < 4,000 cells/mm3 or > 10% bands -Lactate >2.0 mmol/L (>4.0 is equivalent to septic shock) sepsis , POA with blood cultures positive for group D enterococcus MTDD
--- NOTE | 2018-09-18 08:11 | CDI ---
Documentation Clarification Form Date: 09/18/2018 7:44:52 AM From: Vi MCCORMICK,SOURAVN,RN Email: [email or web address] Admit Date: 09/07/2018 7:10:00 PM Patient Name: Catracho Brady Visit Number: [id number] Discharge Date: 09/12/2018 2:23:00 PM ATTENTION: The Clinical Documentation Specialists (CDI) and [facility] Coding Staff appreciate your assistance in clarifying documentation. Please respond to the clarification below the line at the bottom and electronically sign. The CDI & [facility] Coding staff will review the response and follow-up if needed. Please note: Queries are made part of the Legal Health Record. If you have any questions, please contact the author of this message via ITS. Dr. Jin Partida Hypotension is documented in the progress notes and discharge summary noted as likely due to blood loss. GI notes blood loss most likely due to angiectasia. Patient history/risk factors: admitted with AMI, acute respiratory failure, A/C DCHF, Sepsis 2nd to Group D enteroccocus ATN , hx of HTN and CKD, alcoholism, GIB, Diverticulosis , Afib on anticoag. ABLA cause undetermined Clinical Indicators:hypotension. PN he did require a fluid bolus for hypotension, he is tachpneic , bradycardiac and hypotensive.minimally responsive Nephrology: Oliguric with dropping urine output< 500 last 24 hours.Feels lightheaded. #2 add midodrine for hemodynamic support #3 avoid nephrotoxic agents and hypotensive episodes. Vitals:BP 09/07 121/40 to low of 77/35 09/12 HGB 6.8 on presentation to 6.5 to 6.6 on 08/31 then 7.3 after transfusion to 6.5 on 09/12 Treatment:1L IV fluid 09/07 , 1 L IVF 09/10 and 09/11,IV Albumin, IV lasix for volume overload/CHF Midorine started, transfusion 1Uprbcs on 09/10. pt made comfort measures In your professional opinion, can you please render your opinion on the significance of hypotension? Hypotension Septic Shock Cardiogenic Shock Cause Hypovolemic Shock Cause Hemorrhagic Shock Cause Other, please specify Unable to determine (Last Revision: December 2016) hypotension multifactorial MTDD
== END 2018-09-12 14:23 | disposition expired | DRG 871 ==
LOC: EC 15:48 → 3SCARD 19:10 → 2SICU 09-08 00:52
PROVIDERS: ADMIT Hospitalist; ATTEND Hospitalist
PROC: 5A09557 Assistance with Respiratory Ventilation, Greater than 96 Consecutive Hours, Continuous Positive Airway Pressure (ICD-10-PCS; 2018-09-07)
PROC: 30233N1 Transfusion of Nonautologous Red Blood Cells into Peripheral Vein, Percutaneous Approach (ICD-10-PCS; principal; 2018-09-10)
PROC: 05HD33Z Insertion of Infusion Device into Right Cephalic Vein, Percutaneous Approach (ICD-10-PCS; 2018-09-11)
DX: A41.81 Sepsis due to Enterococcus (principal); I21.9 Acute myocardial infarction, unspecified; J96.01 Acute respiratory failure with hypoxia; N17.0 Acute kidney failure with tubular necrosis; I50.33 Acute on chronic diastolic (congestive) heart failure; G93.41 Metabolic encephalopathy; L89.323 Pressure ulcer of left buttock, stage 3; L89.313 Pressure ulcer of right buttock, stage 3; L89.623 Pressure ulcer of left heel, stage 3; E87.2 Acidosis; I13.0 Hypertensive heart and chronic kidney disease with heart failure and stage 1 through stage 4 chronic kidney disease, or unspecified chronic kidney disease; D62 Acute posthemorrhagic anemia; E87.1 Hypo-osmolality and hyponatremia; Q23.1 Congenital insufficiency of aortic valve; Z66 Do not resuscitate; Z51.5 Encounter for palliative care; L89.159 Pressure ulcer of sacral region, unspecified stage; I95.89 Other hypotension; E87.5 Hyperkalemia; G62.9 Polyneuropathy, unspecified; I27.20 Pulmonary hypertension, unspecified; J44.9 Chronic obstructive pulmonary disease, unspecified; I48.0 Paroxysmal atrial fibrillation; F10.21 Alcohol dependence, in remission; K31.819 Angiodysplasia of stomach and duodenum without bleeding; I73.9 Peripheral vascular disease, unspecified; G47.30 Sleep apnea, unspecified; E86.1 Hypovolemia; N18.2 Chronic kidney disease, stage 2 (mild); R62.7 Adult failure to thrive; I25.10 Atherosclerotic heart disease of native coronary artery without angina pectoris; K22.70 Barrett's esophagus without dysplasia; F41.9 Anxiety disorder, unspecified; K57.30 Diverticulosis of large intestine without perforation or abscess without bleeding; K76.9 Liver disease, unspecified; E78.5 Hyperlipidemia, unspecified; G89.29 Other chronic pain; M54.9 Dorsalgia, unspecified; M19.91 Primary osteoarthritis, unspecified site; E66.9 Obesity, unspecified; I25.2 Old myocardial infarction; T17.990A Other foreign object in respiratory tract, part unspecified in causing asphyxiation, initial encounter; T50.2X5A Adverse effect of carbonic-anhydrase inhibitors, benzothiadiazides and other diuretics, initial encounter; Z68.39 Body mass index [BMI] 39.0-39.9, adult; Z79.01 Long term (current) use of anticoagulants; Z79.899 Other long term (current) drug therapy; Z71.3 Dietary counseling and surveillance; Z95.828 Presence of other vascular implants and grafts; Z86.010 Personal history of colon polyps; Z85.828 Personal history of other malignant neoplasm of skin; Z95.5 Presence of coronary angioplasty implant and graft; Z95.3 Presence of xenogenic heart valve; Z95.1 Presence of aortocoronary bypass graft; Z87.891 Personal history of nicotine dependence; Z87.19 Personal history of other diseases of the digestive system; Z97.2 Presence of dental prosthetic device (complete) (partial); Z83.2 Family history of diseases of the blood and blood-forming organs and certain disorders involving the immune mechanism
CPT/HCPCS: 36410; 36415; 51701; 70450; 71045; 71046; 74230; 76937; 80048; 80053; 81003; 82040; 82550; 82553; 82728; 83540; 83550; 83605; 83735; 83880; 83930; 83935; 84100; 84300; 84484; 85025; 85027; 85610; 85730; 86850; 86900; 86901; 86920; 87040; 87070; 87075; 87077; 87086; 87186; 87205; 93005; 93306; 94640; 94660; 96360; 96361; 99291